=== PATIENT | female | born 1945 | race African-American/Black ===

== ENCOUNTER 2017-06-10 10:46 | Inpatient (IN) | payer OTHER, MEDICARE ==
[2017-06-10] MEDS: IV NORMAL SALINE 1000ML BAG 1,000 ML IV ×4 (11:00→15:15)
[2017-06-10] MEDS: NOREPINEPHRINE VIAL 16 MG in IV NORMAL SALINE 250ML 250 ML IV (12:39)
[2017-06-10 12:48] LABS: ADD MAN DIFF? NO
[2017-06-10 12:53] LABS: BASO % 0 % (0-3); EOS % 0 % (0-3); HEMATOCRIT 28.7 % (36.0-47.0); HEMOGLOBIN 9.3 g/dL (12.0-15.5); LYMPH # 1.3 x10^3/uL (1.0-4.8); LYMPH % 6 % (24-48); MEAN CORPUSCULAR HEMOGLOBIN 30 pg (25-35); MEAN CORPUSCULAR HGB CONC 32 g/dL (31-37); MEAN CORPUSCULAR VOLUME 93 fL (79-100); MONO # 1.3 x10^3/uL (0.0-1.1); MONO % 6 % (0-9); NEUT # 19.9 x10^3uL (1.8-7.7); NEUT % 88 % (31-73); PLATELET COUNT 298 x10^3/uL (140-400); RED BLOOD COUNT 3.08 x10^6/uL (3.50-5.40); RED CELL DISTRIBUTION WIDTH 13.3 % (11.5-14.5); WHITE BLOOD COUNT 22.5 x10^3/uL (4.0-11.0)
[2017-06-10 13:01] LABS: INR 1.3 (0.8-1.1); PROTHROMBIN TIME PATIENT 15.1 SEC (11.7-14.0)
[2017-06-10 13:07] LABS: ANION GAP 10 (6-14); BLOOD UREA NITROGEN 44 mg/dL (7-20); CALCIUM 9.1 mg/dL (8.5-10.1); CARBON DIOXIDE 28 mmol/L (21-32); CHLORIDE 104 mmol/L (98-107); GFR 18.5; GLUCOSE 132 mg/dL (70-99); POTASSIUM 3.9 mmol/L (3.5-5.1); SODIUM 142 mmol/L (136-145)
[2017-06-10 13:13] LABS: ALBUMIN 2.7 g/dL (3.4-5.0); ALK PHOS 71 U/L (46-116); ALT (SGPT) 26 U/L (14-59); AST (SGOT) 27 U/L (15-37); DIRECT BILIRUBIN 0.4 mg/dL (0.0-0.2); LIPASE 75 U/L (73-393); MAGNESIUM 1.7 mg/dL (1.8-2.4); TOTAL BILIRUBIN 0.9 mg/dL (0.2-1.0); TOTAL PROTEIN 5.9 g/dL (6.4-8.2)
[2017-06-10 13:18] LABS: TROPONINI < 0.017 ng/mL (0.000-0.055)
[2017-06-10 13:20] LABS: CKMB INDEX 0.5 % (0-4); CKMB MASS 1.9 ng/mL (0.0-3.6); CREATINE KINASE 380 U/L (26-192)
[2017-06-10 13:20] LABS: NT-PRO BNP 4499 pg/mL (0-124)
[2017-06-10 13:27] LABS: LACTIC ACID 2.6 mmol/L (0.4-2.0)
[2017-06-10 14:28] LABS: % BANDS 27 % (0-9); % LYMPHS 6 % (24-48); % METAS 2 % (0-0); % MONOS 3 % (0-10); % SEGS 62 % (35-66)
[2017-06-10 14:29] LABS: PLT ESTIMATE ADEQUATE (ADEQUATE)
[2017-06-10] MEDS ORDERED: DEXTROSE 50% 25 GM / 50ML DISP.SYRIN. IV (15:15)
[2017-06-10] MEDS: MAGNESIUM SULFATE 2GM 50 ML IV (15:39)
[2017-06-10 15:56] LABS: LACTIC ACID 1.4 mmol/L (0.4-2.0)
[2017-06-10] MEDS: INSULIN ASPART 300 UNITS/3 ML INSULN.PEN SQ (17:00)
[2017-06-10] MEDS: ONDANSETRON PF 4 MG/2 ML VIAL. IV (21:17)
[2017-06-10] MEDS: HYDROcodone/APAP 5/325MG 1 TAB TABLET PO (21:17)
[2017-06-10] MEDS: 1/2 NORMAL SALINE IV (21:21)
[2017-06-10] MEDS: AZITHROMYCIN IV (21:21)
[2017-06-10 21:45] LABS: BILIRUBIN,URINE SMALL (NEG); CLARITY,URINE CLEAR; COLOR,URINE AMBER; GLUCOSE,URINE NEGATIVE (NEG); NITRITE,URINE NEGATIVE (NEG); PROTEIN,URINE 30 mg/dL (NEG-TRACE)
[2017-06-10 21:51] LABS: AMPHETAMINE/METHAMPHETAMINE NEG (NEG); BARBITURATES NEG (NEG); BENZODIAZEPINES POS (NEG); CANNABINOIDS NEG (NEG); COCAINE NEG (NEG); ETHANOL, URINE NEG (NEG); METHADONE NEG (NEG); OPIATES POS (NEG); PHENCYCLIDINE NEG (NEG)
[2017-06-10 21:55] LABS: BACTERIA,URINE FEW /HPF (0-FEW); SQUAMOUS EPITHELIAL CELL,UR OCC /LPF
[2017-06-10] MEDS ORDERED: AZITHRMYCN 500MG IVPB FOR OMNI 250 ML IV (22:00)
[2017-06-10 22:02] LABS: TROPONINI < 0.017 ng/mL (0.000-0.055)
[2017-06-10] MEDS: HEPARIN PF for SUB-Q USE 5,000 UNIT/0.5 ML VIAL. SQ (22:10)
[2017-06-10 22:11] LABS: INFLUENZA A PATIENT NEGATIVE (NEGATIVE); INFLUENZA B PATIENT NEGATIVE (NEGATIVE); OBC FLU VALID
[2017-06-11] MEDS: NOREPINEPHRINE VIAL 16 MG in IV NORMAL SALINE 250ML 250 ML IV ×2 (00:23→18:36)
[2017-06-11 04:21] LABS: MRSA BY PCR Negative (Negative)
[2017-06-11] MEDS: IV NORMAL SALINE 1000ML BAG 1,000 ML IV ×3 (04:23→15:31)
[2017-06-11] MEDS: HEPARIN PF for SUB-Q USE 5,000 UNIT/0.5 ML VIAL. SQ ×3 (06:09→22:40)
[2017-06-11 06:22] LABS: BASO # 0.1 x10^3/uL (0.0-0.2); BASO % 0 % (0-3); EOS % 0 % (0-3); HEMATOCRIT 30.4 % (36.0-47.0); HEMOGLOBIN 9.5 g/dL (12.0-15.5); LYMPH # 2.3 x10^3/uL (1.0-4.8); LYMPH % 8 % (24-48); MEAN CORPUSCULAR HEMOGLOBIN 29 pg (25-35); MEAN CORPUSCULAR HGB CONC 31 g/dL (31-37); MEAN CORPUSCULAR VOLUME 93 fL (79-100); MONO % 4 % (0-9); NEUT # 24.9 x10^3uL (1.8-7.7); NEUT % 88 % (31-73); PLATELET COUNT 283 x10^3/uL (140-400); RED BLOOD COUNT 3.26 x10^6/uL (3.50-5.40); RED CELL DISTRIBUTION WIDTH 13.4 % (11.5-14.5); WHITE BLOOD COUNT 28.2 x10^3/uL (4.0-11.0)
[2017-06-11 06:29] LABS: ALBUMIN 2.4 g/dL (3.4-5.0); ANION GAP 10 (6-14); BLOOD UREA NITROGEN 48 mg/dL (7-20); CALCIUM 8.7 mg/dL (8.5-10.1); CARBON DIOXIDE 25 mmol/L (21-32); CHLORIDE 107 mmol/L (98-107); CREATININE 2.3 mg/dL (0.6-1.0); GFR 25.1; GLUCOSE 155 mg/dL (70-99); MAGNESIUM 2.2 mg/dL (1.8-2.4); PHOSPHORUS 3.7 mg/dL (2.6-4.7); POTASSIUM 4.5 mmol/L (3.5-5.1); SODIUM 142 mmol/L (136-145)
[2017-06-11 06:36] LABS: ADD MAN DIFF? YES
[2017-06-11 06:37] LABS: TROPONINI < 0.017 ng/mL (0.000-0.055)
[2017-06-11] MEDS: INSULIN ASPART 300 UNITS/3 ML INSULN.PEN SQ ×3 (08:00→17:00)
[2017-06-11] MEDS: LIDOCAINE (700MG/PATCH) PATCH. TD (08:42)
[2017-06-11] MEDS: HYDROcodone/APAP 5/325MG 1 TAB TABLET PO ×3 (08:43→22:41)
[2017-06-11 09:10] LABS: POC GLUCOSE 99 mg/dL (70-99)
[2017-06-11 10:04] LABS: % BANDS 46 % (0-9); % LYMPHS 9 % (24-48); % METAS 3 % (0-0); % MONOS 3 % (0-10); % MYELOS 2 % (0-0); % SEGS 37 % (35-66)
[2017-06-11 10:05] LABS: PLT ESTIMATE ADEQUATE (ADEQUATE)
[2017-06-11 11:23] LABS: CREATINE KINASE 527 U/L (26-192)
[2017-06-11 12:17] LABS: POC GLUCOSE 117 mg/dL (70-99)
[2017-06-11] MEDS ORDERED: PIP/TAZO PER PHARMACY MC (13:00)
[2017-06-11 13:59] LABS: SEDIMENTATION RATE 83 (0-25)
[2017-06-11] MEDS ORDERED: cefTRIAXone IV Push 1 GM VIAL. IVP (14:00)
[2017-06-11] MEDS: ACETAMINOPHEN 500 MG TABLET PO (14:27)
[2017-06-11] MEDS: PIPERACILLIN/TAZOBACTAM 3.375 GM in IV NORMAL SALINE 50ML 50 ML IV ×2 (14:29→18:35)
[2017-06-11] MEDS: ONDANSETRON PF 4 MG/2 ML VIAL. IV ×2 (15:47→21:04)
[2017-06-11 18:35] LABS: POC GLUCOSE 128 mg/dL (70-99)
[2017-06-11] MEDS: 1/2 NORMAL SALINE IV (20:34)
[2017-06-11] MEDS: AZITHROMYCIN IV (20:34)
[2017-06-11] MEDS ORDERED: MEROPENEM 500 MG in IV NORMAL SALINE 50ML 50 ML IV (22:00)
[2017-06-12] MEDS: PIPERACILLIN/TAZOBACTAM 3.375 GM in IV NORMAL SALINE 50ML 50 ML IV ×5 (00:04→23:56)
[2017-06-12] MEDS: IV NORMAL SALINE 1000ML BAG 1,000 ML IV ×3 (02:31→17:27)
[2017-06-12 05:19] LABS: ADD MAN DIFF? NO
[2017-06-12] MEDS: HYDROcodone/APAP 5/325MG 1 TAB TABLET PO ×3 (05:31→20:14)
[2017-06-12 05:32] LABS: BASO % 0 % (0-3); EOS # 0.1 x10^3/uL (0.0-0.7); EOS % 0 % (0-3); HEMATOCRIT 28.1 % (36.0-47.0); LYMPH # 2.8 x10^3/uL (1.0-4.8); LYMPH % 12 % (24-48); MEAN CORPUSCULAR HEMOGLOBIN 30 pg (25-35); MEAN CORPUSCULAR HGB CONC 32 g/dL (31-37); MEAN CORPUSCULAR VOLUME 93 fL (79-100); MONO # 1.1 x10^3/uL (0.0-1.1); MONO % 5 % (0-9); NEUT # 19.1 x10^3uL (1.8-7.7); NEUT % 83 % (31-73); PLATELET COUNT 262 x10^3/uL (140-400); RED BLOOD COUNT 3.02 x10^6/uL (3.50-5.40); RED CELL DISTRIBUTION WIDTH 13.3 % (11.5-14.5); WHITE BLOOD COUNT 23.2 x10^3/uL (4.0-11.0)
[2017-06-12] MEDS: HEPARIN PF for SUB-Q USE 5,000 UNIT/0.5 ML VIAL. SQ ×3 (05:32→22:08)
[2017-06-12 05:59] LABS: ALBUMIN/GLOBULIN RATIO 0.5 (1.0-1.7); ALK PHOS 103 U/L (46-116); ALT (SGPT) 29 U/L (14-59); ANION GAP 7 (6-14); AST (SGOT) 29 U/L (15-37); BLOOD UREA NITROGEN 23 mg/dL (7-20); BUN/CREATININE RATIO 18 (6-20); CALCIUM 9.2 mg/dL (8.5-10.1); CARBON DIOXIDE 27 mmol/L (21-32); CHLORIDE 106 mmol/L (98-107); CREATINE KINASE 166 U/L (26-192); CREATININE 1.3 mg/dL (0.6-1.0); GFR 48.6; GLUCOSE 97 mg/dL (70-99); POTASSIUM 4.1 mmol/L (3.5-5.1); SODIUM 140 mmol/L (136-145); TOTAL BILIRUBIN 0.3 mg/dL (0.2-1.0); TOTAL PROTEIN 6.1 g/dL (6.4-8.2)
[2017-06-12 06:33] LABS: LACTIC ACID 0.8 mmol/L (0.4-2.0)
[2017-06-12] MEDS: INSULIN ASPART 300 UNITS/3 ML INSULN.PEN SQ ×3 (08:00→17:00)
[2017-06-12] MEDS: LIDOCAINE (700MG/PATCH) PATCH. TD (08:45)
[2017-06-12 09:14] LABS: THYROID STIM HORMONE (TSH) 0.403 uIU/mL (0.358-3.74)
[2017-06-12 09:31] LABS: POC GLUCOSE 75 mg/dL (70-99)
[2017-06-12 09:34] LABS: % SAT IRON 3 % (15-34); IRON,SERUM 7 ug/dL (50-170)
[2017-06-12 09:45] LABS: FERRITIN 139 ng/mL (8-252)
[2017-06-12 13:06] LABS: POC GLUCOSE 117 mg/dL (70-99)
[2017-06-12] MEDS: oxyCODONE/APAP 7.5/325 1 TAB TABLET PO (14:52)
[2017-06-12 17:32] LABS: POC GLUCOSE 115 mg/dL (70-99)
[2017-06-12] MEDS: amLODIPine BESYLATE 5 MG TABLET PO (18:50)
[2017-06-12] MEDS: LABETALOL 20 MG/4 ML DISP.SYRIN. IVP (18:51)
[2017-06-12] MEDS: AZITHROMYCIN IV (20:14)
[2017-06-12] MEDS: 1/2 NORMAL SALINE IV (20:14)
[2017-06-12] MEDS: LACTOBACILLUS RHAMNOSUS GG 1 CAPSULE. PO (20:14)
[2017-06-12] MEDS: ONDANSETRON PF 4 MG/2 ML VIAL. IV (20:51)
[2017-06-13] MEDS: LABETALOL 20 MG/4 ML DISP.SYRIN. IVP ×3 (05:33→22:47)
[2017-06-13] MEDS: HYDROcodone/APAP 5/325MG 1 TAB TABLET PO (05:34)
[2017-06-13] MEDS: HEPARIN PF for SUB-Q USE 5,000 UNIT/0.5 ML VIAL. SQ ×3 (05:34→21:47)
[2017-06-13] MEDS: PIPERACILLIN/TAZOBACTAM 3.375 GM in IV NORMAL SALINE 50ML 50 ML IV ×4 (05:34→23:53)
[2017-06-13 06:32] LABS: ALBUMIN 2.1 g/dL (3.4-5.0); ALBUMIN/GLOBULIN RATIO 0.6 (1.0-1.7); ALK PHOS 109 U/L (46-116); ALT (SGPT) 42 U/L (14-59); ANION GAP 9 (6-14); AST (SGOT) 35 U/L (15-37); BLOOD UREA NITROGEN 12 mg/dL (7-20); BUN/CREATININE RATIO 13 (6-20); CARBON DIOXIDE 26 mmol/L (21-32); CHLORIDE 106 mmol/L (98-107); CREATININE 0.9 mg/dL (0.6-1.0); GFR 74.3; GLUCOSE 126 mg/dL (70-99); POTASSIUM 4.5 mmol/L (3.5-5.1); SODIUM 141 mmol/L (136-145); TOTAL BILIRUBIN 0.4 mg/dL (0.2-1.0); TOTAL PROTEIN 5.9 g/dL (6.4-8.2)
[2017-06-13 06:33] LABS: CREATINE KINASE 87 U/L (26-192)
[2017-06-13] MEDS: INSULIN ASPART 300 UNITS/3 ML INSULN.PEN SQ ×3 (08:00→17:02)
[2017-06-13] MEDS: amLODIPine BESYLATE 5 MG TABLET PO (08:48)
[2017-06-13] MEDS: LACTOBACILLUS RHAMNOSUS GG 1 CAPSULE. PO ×2 (08:48→21:40)
[2017-06-13] MEDS: IV NORMAL SALINE 1000ML BAG 1,000 ML IV (08:49)
[2017-06-13] MEDS: LIDOCAINE (700MG/PATCH) PATCH. TD (08:49)
[2017-06-13 09:00] LABS: POC GLUCOSE 127 mg/dL (70-99)
[2017-06-13 09:05] LABS: ADD MAN DIFF? NO
[2017-06-13] MEDS: ONDANSETRON PF 4 MG/2 ML VIAL. IV ×3 (09:06→22:44)
[2017-06-13 09:14] LABS: BASO % 0 % (0-3); EOS # 0.1 x10^3/uL (0.0-0.7); EOS % 1 % (0-3); HEMATOCRIT 32.6 % (36.0-47.0); HEMOGLOBIN 10.7 g/dL (12.0-15.5); LYMPH # 2.2 x10^3/uL (1.0-4.8); LYMPH % 12 % (24-48); MEAN CORPUSCULAR HEMOGLOBIN 30 pg (25-35); MEAN CORPUSCULAR HGB CONC 33 g/dL (31-37); MEAN CORPUSCULAR VOLUME 92 fL (79-100); MONO # 1.4 x10^3/uL (0.0-1.1); MONO % 8 % (0-9); NEUT # 14.7 x10^3uL (1.8-7.7); NEUT % 79 % (31-73); PLATELET COUNT 342 x10^3/uL (140-400); RED BLOOD COUNT 3.53 x10^6/uL (3.50-5.40); RED CELL DISTRIBUTION WIDTH 13.2 % (11.5-14.5); WHITE BLOOD COUNT 18.5 x10^3/uL (4.0-11.0)
[2017-06-13] MEDS ORDERED: CARVEDILOL 12.5 MG TABLET. PO (09:30)
[2017-06-13] MEDS ORDERED: MAGNESIUM HYDROXIDE 2,400 MG/30 ML ORAL.SUSP. PO (09:30)
[2017-06-13] MEDS ORDERED: HYDROcodone/APAP 5/325MG 1 TAB TABLET PO (09:45)
[2017-06-13] MEDS: POLYETHYLENE GLYCOL 3350 17 GM PACKET. PO (10:22)
[2017-06-13] MEDS: DOCUSATE SODIUM 100 MG CAPSULE. PO (10:22)
[2017-06-13] MEDS: diazePAM 5 MG TABLET PO (11:00)
[2017-06-13] MEDS: cloNIDine HCL 0.3 MG TABLET PO ×2 (11:00→21:42)
[2017-06-13 11:23] LABS: SPECIMEN SOURCE Urine (.); STREP PNEUMO ANTIGEN Positive (Negative)
[2017-06-13] MEDS: GLIMEPIRIDE 2 MG TABLET. PO (12:00)
[2017-06-13] MEDS ORDERED: PROCHLORPERAZINE 10 MG/2 ML VIAL. (13:03)
[2017-06-13] MEDS: PROCHLORPERAZINE 10 MG/2 ML VIAL. IV (13:04)
[2017-06-13 13:15] LABS: POC GLUCOSE 151 mg/dL (70-99)
[2017-06-13 16:17] LABS: LEGIONELLA AG UR Negative (Negative)
[2017-06-13] MEDS: oxyCODONE/APAP 7.5/325 1 TAB TABLET PO (16:24)
[2017-06-13 16:58] LABS: POC GLUCOSE 137 mg/dL (70-99)
[2017-06-13] MEDS: hydroCHLOROthiazide 12.5 MG CAPSULE PO (18:08)
[2017-06-13] MEDS: LABETALOL HCL 200 MG TABLET PO ×2 (18:08→21:41)
[2017-06-13] MEDS: LISINOPRIL 20 MG TABLET PO (18:08)
[2017-06-13] MEDS: PROCHLORPERAZINE 5 MG TABLET. PO (20:13)
[2017-06-13 21:07] LABS: POC GLUCOSE 162 mg/dL (70-99)
[2017-06-13] MEDS: ACETAMINOPHEN 500 MG TABLET PO (21:40)
[2017-06-13] MEDS: ATORVASTATIN CALCIUM 10 MG TABLET. PO (21:40)
[2017-06-13] MEDS: AMITRIPTYLINE HCL 50 MG TABLET PO (21:40)
[2017-06-13] MEDS: 1/2 NORMAL SALINE IV (21:42)
[2017-06-13] MEDS: AZITHROMYCIN IV (21:42)
[2017-06-14 03:27] LABS: POC GLUCOSE 143 mg/dL (70-99)
[2017-06-14] MEDS: PIPERACILLIN/TAZOBACTAM 3.375 GM in IV NORMAL SALINE 50ML 50 ML IV ×4 (05:21→23:43)
[2017-06-14] MEDS: HEPARIN PF for SUB-Q USE 5,000 UNIT/0.5 ML VIAL. SQ ×3 (05:21→22:02)
[2017-06-14] MEDS: IV NORMAL SALINE 1000ML BAG 1,000 ML IV (06:16)
[2017-06-14 06:29] LABS: CREATINE KINASE 31 U/L (26-192)
[2017-06-14 07:31] LABS: POC GLUCOSE 134 mg/dL (70-99)
[2017-06-14] MEDS: INSULIN ASPART 300 UNITS/3 ML INSULN.PEN SQ ×3 (07:38→16:34)
[2017-06-14] MEDS: LIDOCAINE (700MG/PATCH) PATCH. TD (08:41)
[2017-06-14] MEDS: POLYETHYLENE GLYCOL 3350 17 GM PACKET. PO (08:41)
[2017-06-14] MEDS: LACTOBACILLUS RHAMNOSUS GG 1 CAPSULE. PO ×2 (08:41→20:52)
[2017-06-14] MEDS: diazePAM 5 MG TABLET PO (08:42)
[2017-06-14] MEDS: GLIMEPIRIDE 2 MG TABLET. PO (08:42)
[2017-06-14] MEDS: DOCUSATE SODIUM 100 MG CAPSULE. PO (08:42)
[2017-06-14] MEDS: hydroCHLOROthiazide 12.5 MG CAPSULE PO (08:46)
[2017-06-14] MEDS: LISINOPRIL 20 MG TABLET PO (08:46)
[2017-06-14] MEDS: cloNIDine HCL 0.3 MG TABLET PO ×2 (08:46→20:53)
[2017-06-14] MEDS: LABETALOL HCL 200 MG TABLET PO ×2 (08:47→20:52)
[2017-06-14] MEDS ORDERED: NON FORMULARY ITEM (Lisinopril/Hydrochlorothiazide (Lisinopril-Hctz 20-12.5 Mg Tab) 1 TAB) PO (09:00)
[2017-06-14] MEDS: oxyCODONE/APAP 7.5/325 1 TAB TABLET PO ×3 (09:48→18:12)
[2017-06-14 11:23] LABS: POC GLUCOSE 164 mg/dL (70-99)
[2017-06-14] MEDS: PROCHLORPERAZINE 5 MG TABLET. PO ×2 (13:46→20:51)
[2017-06-14 16:28] LABS: POC GLUCOSE 121 mg/dL (70-99)
[2017-06-14] MEDS: AZITHROMYCIN IV (20:20)
[2017-06-14] MEDS: 1/2 NORMAL SALINE IV (20:20)
[2017-06-14 20:46] LABS: POC GLUCOSE 135 mg/dL (70-99)
[2017-06-14] MEDS: ATORVASTATIN CALCIUM 10 MG TABLET. PO (20:52)
[2017-06-14] MEDS: AMITRIPTYLINE HCL 50 MG TABLET PO (20:52)
[2017-06-14] MEDS: ALBUTEROL SULFATE 2.5 MG/3 ML NEBU. NEB (21:46)
[2017-06-15] MEDS: oxyCODONE/APAP 7.5/325 1 TAB TABLET PO ×2 (03:37→20:30)
[2017-06-15] MEDS: PIPERACILLIN/TAZOBACTAM 3.375 GM in IV NORMAL SALINE 50ML 50 ML IV ×3 (05:50→17:06)
[2017-06-15] MEDS: HEPARIN PF for SUB-Q USE 5,000 UNIT/0.5 ML VIAL. SQ ×3 (05:55→20:14)
[2017-06-15 06:26] LABS: CREATINE KINASE 29 U/L (26-192)
[2017-06-15 07:44] LABS: POC GLUCOSE 103 mg/dL (70-99)
[2017-06-15] MEDS: INSULIN ASPART 300 UNITS/3 ML INSULN.PEN SQ ×3 (08:04→17:00)
[2017-06-15] MEDS: hydroCHLOROthiazide 12.5 MG CAPSULE PO (08:13)
[2017-06-15] MEDS: POLYETHYLENE GLYCOL 3350 17 GM PACKET. PO (08:13)
[2017-06-15] MEDS: DOCUSATE SODIUM 100 MG CAPSULE. PO (08:13)
[2017-06-15] MEDS: LIDOCAINE (700MG/PATCH) PATCH. TD (08:13)
[2017-06-15] MEDS: GLIMEPIRIDE 2 MG TABLET. PO (08:13)
[2017-06-15] MEDS: diazePAM 5 MG TABLET PO (08:14)
[2017-06-15] MEDS: cloNIDine HCL 0.3 MG TABLET PO ×2 (08:14→20:05)
[2017-06-15] MEDS: LABETALOL HCL 200 MG TABLET PO ×2 (08:14→20:16)
[2017-06-15] MEDS: LISINOPRIL 20 MG TABLET PO (08:14)
[2017-06-15] MEDS: LACTOBACILLUS RHAMNOSUS GG 1 CAPSULE. PO ×2 (08:14→20:05)
[2017-06-15] MEDS: IPRATRPIUM/ALBUTEROL 0.5/2.5MG 3 ML NEBU. NEB ×3 (11:16→19:18)
[2017-06-15 11:32] LABS: POC GLUCOSE 147 mg/dL (70-99)
[2017-06-15 16:57] LABS: POC GLUCOSE 148 mg/dL (70-99)
[2017-06-15] MEDS: AMITRIPTYLINE HCL 50 MG TABLET PO (20:04)
[2017-06-15] MEDS: ATORVASTATIN CALCIUM 10 MG TABLET. PO (20:05)
[2017-06-15 20:41] LABS: POC GLUCOSE 120 mg/dL (70-99)
[2017-06-16] MEDS: PIPERACILLIN/TAZOBACTAM 3.375 GM in IV NORMAL SALINE 50ML 50 ML IV ×2 (00:08→05:53)
[2017-06-16 03:36] LABS: ADD MAN DIFF? NO
[2017-06-16 03:41] LABS: BASO % 1 % (0-3); EOS # 0.2 x10^3/uL (0.0-0.7); EOS % 3 % (0-3); HEMATOCRIT 27.5 % (36.0-47.0); HEMOGLOBIN 9.2 g/dL (12.0-15.5); LYMPH # 3.6 x10^3/uL (1.0-4.8); LYMPH % 43 % (24-48); MEAN CORPUSCULAR HEMOGLOBIN 31 pg (25-35); MEAN CORPUSCULAR HGB CONC 33 g/dL (31-37); MEAN CORPUSCULAR VOLUME 92 fL (79-100); MONO # 1.4 x10^3/uL (0.0-1.1); MONO % 17 % (0-9); NEUT % 37 % (31-73); PLATELET COUNT 339 x10^3/uL (140-400); RED BLOOD COUNT 2.99 x10^6/uL (3.50-5.40); RED CELL DISTRIBUTION WIDTH 13.2 % (11.5-14.5); WHITE BLOOD COUNT 8.3 x10^3/uL (4.0-11.0)
[2017-06-16 04:06] LABS: ALBUMIN 1.9 g/dL (3.4-5.0); ALBUMIN/GLOBULIN RATIO 0.4 (1.0-1.7); TOTAL PROTEIN 6.5 g/dL (6.4-8.2)
[2017-06-16 04:07] LABS: ALK PHOS 71 U/L (46-116); ALT (SGPT) 93 U/L (14-59); ANION GAP 4 (6-14); AST (SGOT) 68 U/L (15-37); BLOOD UREA NITROGEN 10 mg/dL (7-20); BUN/CREATININE RATIO 11 (6-20); CALCIUM 9.8 mg/dL (8.5-10.1); CARBON DIOXIDE 33 mmol/L (21-32); CHLORIDE 104 mmol/L (98-107); CREATINE KINASE 20 U/L (26-192); CREATININE 0.9 mg/dL (0.6-1.0); GFR 74.3; GLUCOSE 107 mg/dL (70-99); POTASSIUM 3.7 mmol/L (3.5-5.1); SODIUM 141 mmol/L (136-145); TOTAL BILIRUBIN 0.2 mg/dL (0.2-1.0)
[2017-06-16] MEDS: HEPARIN PF for SUB-Q USE 5,000 UNIT/0.5 ML VIAL. SQ ×3 (06:00→21:37)
[2017-06-16] MEDS: oxyCODONE/APAP 7.5/325 1 TAB TABLET PO ×3 (06:04→21:33)
[2017-06-16 07:42] LABS: POC GLUCOSE 100 mg/dL (70-99)
[2017-06-16] MEDS: IPRATRPIUM/ALBUTEROL 0.5/2.5MG 3 ML NEBU. NEB ×4 (07:53→19:51)
[2017-06-16] MEDS: INSULIN ASPART 300 UNITS/3 ML INSULN.PEN SQ ×3 (08:00→17:00)
[2017-06-16] MEDS: hydroCHLOROthiazide 12.5 MG CAPSULE PO (08:28)
[2017-06-16] MEDS: LIDOCAINE (700MG/PATCH) PATCH. TD (08:28)
[2017-06-16] MEDS: LISINOPRIL 20 MG TABLET PO (08:29)
[2017-06-16] MEDS: LACTOBACILLUS RHAMNOSUS GG 1 CAPSULE. PO ×2 (08:30→21:34)
[2017-06-16] MEDS: DOCUSATE SODIUM 100 MG CAPSULE. PO (08:30)
[2017-06-16] MEDS: GLIMEPIRIDE 2 MG TABLET. PO (08:30)
[2017-06-16] MEDS: cloNIDine HCL 0.3 MG TABLET PO ×2 (08:31→21:34)
[2017-06-16] MEDS: diazePAM 5 MG TABLET PO ×2 (08:32→22:49)
[2017-06-16] MEDS: POLYETHYLENE GLYCOL 3350 17 GM PACKET. PO (08:32)
[2017-06-16] MEDS: LABETALOL HCL 200 MG TABLET PO ×2 (08:32→21:33)
[2017-06-16 12:26] LABS: POC GLUCOSE 172 mg/dL (70-99)
[2017-06-16 17:17] LABS: POC GLUCOSE 121 mg/dL (70-99)
[2017-06-16 21:32] LABS: POC GLUCOSE 93 mg/dL (70-99)
[2017-06-16] MEDS: ATORVASTATIN CALCIUM 10 MG TABLET. PO (21:34)
[2017-06-16] MEDS: AMITRIPTYLINE HCL 50 MG TABLET PO (21:34)
[2017-06-17 06:04] LABS: CREATINE KINASE 22 U/L (26-192)
[2017-06-17] MEDS: oxyCODONE/APAP 7.5/325 1 TAB TABLET PO ×3 (06:12→19:38)
[2017-06-17] MEDS: HEPARIN PF for SUB-Q USE 5,000 UNIT/0.5 ML VIAL. SQ ×3 (06:16→22:02)
[2017-06-17 07:38] LABS: POC GLUCOSE 120 mg/dL (70-99)
[2017-06-17] MEDS: IPRATRPIUM/ALBUTEROL 0.5/2.5MG 3 ML NEBU. NEB ×4 (07:43→20:57)
[2017-06-17] MEDS: ONDANSETRON PF 4 MG/2 ML VIAL. IV (07:52)
[2017-06-17] MEDS: INSULIN ASPART 300 UNITS/3 ML INSULN.PEN SQ ×3 (08:51→17:04)
[2017-06-17] MEDS: POLYETHYLENE GLYCOL 3350 17 GM PACKET. PO (09:18)
[2017-06-17] MEDS: LIDOCAINE (700MG/PATCH) PATCH. TD (09:19)
[2017-06-17] MEDS: DOCUSATE SODIUM 100 MG CAPSULE. PO (09:20)
[2017-06-17] MEDS: LACTOBACILLUS RHAMNOSUS GG 1 CAPSULE. PO ×2 (09:20→21:58)
[2017-06-17] MEDS: GLIMEPIRIDE 2 MG TABLET. PO (09:20)
[2017-06-17] MEDS: hydroCHLOROthiazide 12.5 MG CAPSULE PO (09:21)
[2017-06-17] MEDS: LISINOPRIL 20 MG TABLET PO (09:21)
[2017-06-17] MEDS: diazePAM 5 MG TABLET PO ×2 (09:21→22:36)
[2017-06-17] MEDS: LABETALOL HCL 200 MG TABLET PO ×2 (09:21→21:58)
[2017-06-17] MEDS: cloNIDine HCL 0.3 MG TABLET PO ×2 (09:22→21:58)
[2017-06-17 11:05] LABS: POC GLUCOSE 160 mg/dL (70-99)
[2017-06-17] MEDS: ACETAMINOPHEN 500 MG TABLET PO (12:35)
[2017-06-17 17:02] LABS: POC GLUCOSE 115 mg/dL (70-99)
[2017-06-17 20:58] LABS: POC GLUCOSE 111 mg/dL (70-99)
[2017-06-17] MEDS: ATORVASTATIN CALCIUM 10 MG TABLET. PO (21:59)
[2017-06-17] MEDS: AMITRIPTYLINE HCL 50 MG TABLET PO (21:59)
[2017-06-18] MEDS: oxyCODONE/APAP 7.5/325 1 TAB TABLET PO ×2 (04:52→11:57)
[2017-06-18] MEDS: HEPARIN PF for SUB-Q USE 5,000 UNIT/0.5 ML VIAL. SQ (05:59)
[2017-06-18] MEDS: IPRATRPIUM/ALBUTEROL 0.5/2.5MG 3 ML NEBU. NEB ×2 (06:43→12:10)
[2017-06-18 07:25] LABS: CREATINE KINASE 24 U/L (26-192)
[2017-06-18 07:46] LABS: POC GLUCOSE 132 mg/dL (70-99)
[2017-06-18] MEDS: INSULIN ASPART 300 UNITS/3 ML INSULN.PEN SQ ×2 (08:28→11:58)
[2017-06-18] MEDS: ONDANSETRON PF 4 MG/2 ML VIAL. IV (09:00)
[2017-06-18] MEDS: hydroCHLOROthiazide 12.5 MG CAPSULE PO (09:00)
[2017-06-18] MEDS: LIDOCAINE (700MG/PATCH) PATCH. TD (09:00)
[2017-06-18] MEDS: DOCUSATE SODIUM 100 MG CAPSULE. PO (09:00)
[2017-06-18] MEDS: POLYETHYLENE GLYCOL 3350 17 GM PACKET. PO (09:00)
[2017-06-18] MEDS: LACTOBACILLUS RHAMNOSUS GG 1 CAPSULE. PO (09:01)
[2017-06-18] MEDS: GLIMEPIRIDE 2 MG TABLET. PO (09:01)
[2017-06-18] MEDS: diazePAM 5 MG TABLET PO (09:01)
[2017-06-18] MEDS: LISINOPRIL 20 MG TABLET PO (09:01)
[2017-06-18] MEDS: LABETALOL HCL 200 MG TABLET PO (09:02)
[2017-06-18] MEDS: cloNIDine HCL 0.3 MG TABLET PO (09:02)
[2017-06-18 11:57] LABS: POC GLUCOSE 141 mg/dL (70-99)
== END 2017-06-18 14:15 | disposition home health service (06) | DRG 871 ==
LOC: 2 NORTH 06-13 15:23 → ER 10:46 → 1 WEST ICU 13:45
PROC: 02HV33Z Insertion of Infusion Device into Superior Vena Cava, Percutaneous Approach (ICD-10-PCS; principal; 2017-06-10)
DX: A41.9 Sepsis, unspecified organism (principal); J18.9 Pneumonia, unspecified organism; J96.01 Acute respiratory failure with hypoxia; N17.0 Acute kidney failure with tubular necrosis; R65.21 Severe sepsis with septic shock; Z68.41 Body mass index [BMI] 40.0-44.9, adult; J44.0 Chronic obstructive pulmonary disease with (acute) lower respiratory infection; N39.0 Urinary tract infection, site not specified; R04.2 Hemoptysis; D63.8 Anemia in other chronic diseases classified elsewhere; E11.22 Type 2 diabetes mellitus with diabetic chronic kidney disease; E66.9 Obesity, unspecified; E83.42 Hypomagnesemia; G89.29 Other chronic pain; I12.9 Hypertensive chronic kidney disease with stage 1 through stage 4 chronic kidney disease, or unspecified chronic kidney disease; M06.9 Rheumatoid arthritis, unspecified; N18.9 Chronic kidney disease, unspecified; Z87.891 Personal history of nicotine dependence; E66.01 Morbid (severe) obesity due to excess calories; E04.9 Nontoxic goiter, unspecified; D64.9 Anemia, unspecified; E88.09 Other disorders of plasma-protein metabolism, not elsewhere classified
CPT/HCPCS: 36415; 36569; 71045; 71250; 76770; 80048; 80053; 80069; 80076; 80307; 81001; 82550; 82553; 82728; 82962; 83540; 83550; 83605; 83690; 83735; 83880; 84443; 84484; 85007; 85025; 85610; 85651; 87040; 87086; 87449; 87641; 87804; 87804-59; 93005; 93306; 93970; 94640; 94760; 96361; 96365; 97110-GO; 97110-GP; 97116-GP; 97162-GP; 97167-GO; 97530-GO; 97530-GP; 97535-GO; 99291; 99291-25; J0456; J0690; J0780; J1815; J2020; J2405; J2543; J3490; J7030; J7050; J7060; J7613; J7620; Q0164

== ENCOUNTER 2018-11-29 11:57 | Inpatient (IN) | payer OTHER, MEDICAID ==
[~2018-11-29] VITALS: Ht 175.3 cm; Wt 126.6 kg
[~2018-11-29 11:57] MED LIST: ALBU2.5V8 INH; AMIT10TA PO; CLON0.3T PO; DIAZ5TAB4 PO; DICL75TA PO; GLIM4TAB2 PO; LABE200T4 PO; LEVO750T31 PO; LISI1TAB5 PO; OXYC1TAB19 PO; PRAV40TA2 PO; PROC10TA57 PO; TRAM50TA PO
--- NOTE | 2018-11-29 13:01 | PHYS DOC ---
Past Medical History Past Medical History: Asthma, Heart Disease, Hypertension, TIA, Other Additional Past Medical Histor: NEUROPATHY Past Surgical History: Cholecystectomy, Hysterectomy, Tonsillectomy Alcohol Use: None Drug Use: None Adult General Chief Complaint Chief Complaint: WEAKNESS/GENERALIZED HPI HPI Patient is a 73 year old female presents with bilateral lower extremity weakness has been ongoing for week. The patient states his been getting worse, was having trouble walking today. The patient lives at home alone, and walks with a walker at baseline. Denies any pain at this time. Review of Systems Review of Systems Constitutional: Denies fever or chills. Reports weakness. Eyes: Denies change in visual acuity, redness, or eye pain [] HENT: Denies nasal congestion or sore throat [] Respiratory: Denies cough or shortness of breath [] Cardiovascular: No additional information not addressed in HPI [] GI: Denies abdominal pain, nausea, vomiting, bloody stools or diarrhea [] : Denies dysuria or hematuria [] Musculoskeletal: Denies back pain or joint pain [] Integument: Denies rash or skin lesions [] Neurologic: Denies headache, focal weakness or sensory changes [] Endocrine: Denies polyuria or polydipsia [] Complete systems were reviewed and found to be within normal limits, except as documented in this note. Allergies Allergies Allergies Coded Allergies Type Severity Reaction Last Updated Verified No Known Drug Allergies 06/10/17 No Physical Exam Physical Exam Constitutional: Well developed, well nourished, no acute distress, non-toxic appearance. [] HENT: Normocephalic, atraumatic, bilateral external ears normal, oropharynx moist, no oral exudates, nose normal. [] Eyes: PERRLA, EOMI, conjunctiva normal, no discharge. [] Neck: Normal range of motion, no tenderness, supple, no stridor. [] Cardiovascular:Heart rate regular rhythm, no murmur [] Lungs & Thorax: Bilateral breath sounds clear to auscultation [] Abdomen: Bowel sounds normal, distended (states at baseline), no tenderness, no masses, no pulsatile masses. [] Skin: Warm, dry, no erythema, no rash. [] Back: No tenderness, no CVA tenderness. [] Extremities: No tenderness, no cyanosis, no clubbing, ROM intact, Has bilateral edema.] Neurologic: Alert and oriented X 3, normal motor function, normal sensory function, no focal deficits noted. [] Psychologic: Affect normal, judgement normal, mood normal. [] Current Patient Data Vital Signs Vital Signs Date Time Temp Pulse Resp B/P (MAP) Pulse Ox O2 Delivery O2 Flow Rate FiO2 11/29/18 12:09 98.4 72 18 129/63 (85) 95 Room Air 98.4 Lab Values Laboratory Tests Test 11/29/18 13:25 White Blood Count 7.2 x10^3/uL (4.0-11.0) Red Blood Count 3.57 x10^6/uL (3.50-5.40) Hemoglobin 11.4 g/dL (12.0-15.5) L Hematocrit 34.5 % (36.0-47.0) L Mean Corpuscular Volume 97 fL (79-100) Mean Corpuscular Hemoglobin 32 pg (25-35) Mean Corpuscular Hemoglobin Concent 33 g/dL (31-37) Red Cell Distribution Width 13.1 % (11.5-14.5) Platelet Count 249 x10^3/uL (140-400) Neutrophils (%) (Auto) 49 % (31-73) Lymphocytes (%) (Auto) 39 % (24-48) Monocytes (%) (Auto) 9 % (0-9) Eosinophils (%) (Auto) 3 % (0-3) Basophils (%) (Auto) 1 % (0-3) Neutrophils # (Auto) 3.6 x10^3/uL (1.8-7.7) Lymphocytes # (Auto) 2.8 x10^3/uL (1.0-4.8) Monocytes # (Auto) 0.6 x10^3/uL (0.0-1.1) Eosinophils # (Auto) 0.2 x10^3/uL (0.0-0.7) Basophils # (Auto) 0.0 x10^3/uL (0.0-0.2) Sodium Level 143 mmol/L (136-145) Potassium Level 4.2 mmol/L (3.5-5.1) Chloride Level 106 mmol/L (98-107) Carbon Dioxide Level 28 mmol/L (21-32) Anion Gap 9 (6-14) Blood Urea Nitrogen 15 mg/dL (7-20) Creatinine 1.3 mg/dL (0.6-1.0) H Estimated GFR (Cockcroft-Gault) 48.4 BUN/Creatinine Ratio 12 (6-20) Glucose Level 101 mg/dL (70-99) H Lactic Acid Level 1.0 mmol/L (0.4-2.0) Calcium Level 9.8 mg/dL (8.5-10.1) Total Bilirubin 0.3 mg/dL (0.2-1.0) Aspartate Amino Transferase (AST) 13 U/L (15-37) L Alanine Aminotransferase (ALT) 16 U/L (14-59) Alkaline Phosphatase 86 U/L (46-116) GG-Inh-A-Type Natriuretic Peptide 269 pg/mL (0-124) H Total Protein 7.2 g/dL (6.4-8.2) Albumin 3.4 g/dL (3.4-5.0) Albumin/Globulin Ratio 0.9 (1.0-1.7) L Laboratory Tests 11/29/18 13:25 Laboratory Tests 11/29/18 13:25 EKG EKG [] Radiology/Procedures Radiology/Procedures [] Course & Med Decision Making Course & Med Decision Making Pertinent Labs and Imaging studies reviewed. (See chart for details) Will check lab work. Lab work is normal with exception of 1.3 creatinine which is greater than the last creatinine of 0.9. Urine is pending. Discussed with Dr. Olea who will admit to hospital ([id number]). Urine shows UTI, will order Rocephin. Viktoria Disclaimer Dragon Disclaimer This electronic medical record was generated, in whole or in part, using a voice recognition dictation system. Departure Departure Impression: Primary Impression: JENNIFFER (acute kidney injury) Additional Impressions: Generalized weakness Urinary tract infection Disposition: ADMITTED INPATIENT Admitting Physician: HIMS Condition: STABLE Referrals: UNKNOWN PCP NAME (PCP) Problem Qualifiers Additional Impressions: Urinary tract infection Urinary tract infection type: acute cystitis Hematuria presence: without hematuria Qualified Codes: N30.00 - Acute cystitis without hematuria CHEPE BRADLEY APRN Nov 29, 2018 13:00
[2018-11-29 13:35] LABS: BASO % 1 % (0-3); EOS # 0.2 x10^3/uL (0.0-0.7); EOS % 3 % (0-3); HEMATOCRIT 34.5 % (36.0-47.0); HEMOGLOBIN 11.4 g/dL (12.0-15.5); LYMPH # 2.8 x10^3/uL (1.0-4.8); LYMPH % 39 % (24-48); MEAN CORPUSCULAR HEMOGLOBIN 32 pg (25-35); MEAN CORPUSCULAR HGB CONC 33 g/dL (31-37); MEAN CORPUSCULAR VOLUME 97 fL (79-100); MONO # 0.6 x10^3/uL (0.0-1.1); MONO % 9 % (0-9); NEUT # 3.6 x10^3/uL (1.8-7.7); NEUT % 49 % (31-73); PLATELET COUNT 249 x10^3/uL (140-400); RED BLOOD COUNT 3.57 x10^6/uL (3.50-5.40); RED CELL DISTRIBUTION WIDTH 13.1 % (11.5-14.5); WHITE BLOOD COUNT 7.2 x10^3/uL (4.0-11.0)
[2018-11-29 14:00] LABS: CALCIUM 9.8 mg/dL (8.5-10.1); CREATININE 1.3 mg/dL (0.6-1.0); GFR 48.4; POTASSIUM 4.2 mmol/L (3.5-5.1)
[2018-11-29 14:12] LABS: ALBUMIN 3.4 g/dL (3.4-5.0); ALBUMIN/GLOBULIN RATIO 0.9 (1.0-1.7); TOTAL BILIRUBIN 0.3 mg/dL (0.2-1.0); TOTAL PROTEIN 7.2 g/dL (6.4-8.2)
[2018-11-29] MEDS ORDERED: ONDANSETRON PF 4 MG/2 ML VIAL. IV PRN (14:45)
[2018-11-29 14:54] LABS: BILIRUBIN,URINE SMALL (NEG); CLARITY,URINE CLOUDY; COLOR,URINE YELLOW; NITRITE,URINE NEGATIVE (NEG); PROTEIN,URINE NEGATIVE (NEG-TRACE)
[2018-11-29 15:01] LABS: BACTERIA,URINE MANY /HPF (0-FEW); RBC,URINE OCC /HPF (0-2); SQUAMOUS EPITHELIAL CELL,UR MANY /LPF; WBC,URINE 20-40 /HPF (0-4)
[2018-11-29] MEDS ORDERED: cefTRIAXone IV Push 1 GM VIAL. IVP ONE (15:15)
[2018-11-29] MEDS: fentaNYL PF VIAL 100 MCG/2 ML VIAL IV PRN ×3 (15:51→20:58)
--- NOTE | 2018-11-29 15:56 | HP ---
ADMIT DATE: 11/29/2018 CHIEF COMPLAINT: Weakness. HISTORY OF PRESENT ILLNESS: The patient is a pleasant 73-year-old female who is living alone. Her daughter checks on her regularly and states she just become too weak. She could even hardly get to the door when the ambulance came. While in the ER, we noted that she has had acute kidney injury with a creatinine bump of greater than 0.3. We are going to admit the patient and give her IV fluids, do some physical therapy and occupational therapy. I suspect she might need [facility] care [facility]. PAST MEDICAL HISTORY: Asthma, coronary artery disease, hypertension, hyperlipidemia, neuropathy, cholecystectomy, hysterectomy and tonsillectomy. ALLERGIES: None. FAMILY HISTORY: Coronary artery disease. SOCIAL HISTORY: She does not drink, smoke or take drugs. MEDICATIONS: Reviewed, please refer to the MRAD. REVIEW OF SYSTEMS: GENERAL: No history of weight change, weakness or fevers. SKIN: No bruising, hair changes or rashes. EYES: No blurred, double or loss of vision. NOSE AND THROAT: No history of nosebleeds, hoarseness or sore throat. HEART: No history of palpitations, chest pain or shortness of breath on exertion. LUNGS: Denies cough, hemoptysis, wheezing or shortness of breath. GASTROINTESTINAL: Denies changes in appetite, nausea, vomiting, diarrhea or constipation. GENITOURINARY: No history of frequency, urgency, hesitancy or nocturia. NEUROLOGIC: She complains of weakness. PSYCHIATRIC: No history of panic, anxiety or depression. ENDOCRINE: No history of heat or cold intolerance, polyuria or polydipsia. EXTREMITIES: Denies muscle weakness, joint pain, pain on walking or stiffness. PHYSICAL EXAMINATION VITALS: Within normal limits and are stable. GENERAL: No apparent distress. Alert and oriented. HEENT: Head is normocephalic, atraumatic, pupils were equally round and reactive to light and accommodation. NECK: Supple, no JVD, no thyromegaly was noted. LUNGS: Clear to auscultation in all lung rabago without rhonchi or wheezing. HEART: RRR, S1, S2 present. Peripheral pulses intact, no obvious murmurs were noted. ABDOMEN: Soft, nontender. Positive bowel sounds no organomegaly, normal bowel sounds. EXTREMITIES: Without any cyanosis, clubbing, or edema. Pedal pulses intact, Homans sign is negative. 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 Unable to stand. PSYCHIATRIC: Normal affect, normal mood. Stable. SKIN: No ulcerations or rashes, good skin turgor, no jaundice. VASCULAR: Good capillary refill, neurovascular bundle appears to be intact. LABORATORY DATA: Hemoglobin is 11.4, creatinine is 1.3 and her baseline is 0.9. Urine shows a UTI with large amount of leukocyte esterase and 20-40 white cells. ASSESSMENT AND PLAN: Urinary tract infection, metabolic encephalopathy, weakness, probable early failure to thrive and acute kidney injury. The patient has been admitted with consult Nephrology. IV fluids, IV Rocephin. PT, OT, home meds, DVT prophylaxis. Full code. PROGNOSIS: Guarded. JAMILA ACUNA DO DR: [email or web address]/manju JOB#: [id number] / [id number]
[2018-11-29 16:00] VITALS: BP 107/57
[2018-11-29] MEDS: IV NORMAL SALINE 1000ML BAG 1,000 ML IV SCH (16:06)
[2018-11-29] MEDS: cefTRIAXone IV Push 1 GM VIAL. IVP SCH (17:02)
[2018-11-29] MEDS ORDERED: PREG100C PO (17:11)
[2018-11-29 19:35] VITALS: BP 106/61
[2018-11-29 23:25] VITALS: BP 132/73
[2018-11-30] VITALS (7 sets, daily range): BP systolic 127–175; BP diastolic 74–91
[2018-11-30] MEDS: fentaNYL PF VIAL 100 MCG/2 ML VIAL IV PRN ×3 (01:13→08:33)
[2018-11-30] MEDS: IV NORMAL SALINE 1000ML BAG 1,000 ML IV SCH ×2 (05:26→20:20)
[2018-11-30] MEDS ORDERED: ACETAMINOPHEN/CODEINE 300/30MG TABLET. PO PRN (09:15)
[2018-11-30] MEDS ORDERED: PROCHLORPERAZINE 5 MG TABLET. PO PRN (09:15)
[2018-11-30] MEDS ORDERED: ONDANSETRON PF 4 MG/2 ML VIAL. IV PRN (09:15)
[2018-11-30] MEDS ORDERED: ALBUTEROL SULFATE 2.5 MG/3 ML NEBU. INH PRN (09:15)
[2018-11-30] MEDS ORDERED: ACETAMINOPHEN 500 MG TABLET PO PRN (09:15)
[2018-11-30] MEDS ORDERED: diazePAM 5 MG TABLET PO PRN (09:15)
[2018-11-30 09:46] LABS: CALCIUM 9.5 mg/dL (8.5-10.1); CREATININE 1.1 mg/dL (0.6-1.0); GFR 58.7; POTASSIUM 4.3 mmol/L (3.5-5.1)
--- NOTE | 2018-11-30 10:38 | PDOC2 ---
CONSULT Date of Consult Date of Consult DATE: 11/30/18 TIME: 10:37 Reason for Consult Reason for Consult: JENNIFFER Identification/Chief Complaint Chief Complaint Legs hurting and feeling weak Source Source: Chart review, Patient History of Present Illness Reason for Visit: Patient is a 73 year old AA female presents with bilateral lower extremity weakness has been ongoing for week. The patient states his been getting worse, was having trouble walking today. The patient lives at home alone, and walks with a walker at baseline. Denies any OTC meds. Denies NSAID's but per med list on Diclofenac Recently started on Lyrica by PCP . On Statin as well, not new per patient Denies any past hx of renal issues. No urinary complaints. No N/V/D No Fall/Trauma Past Medical History Cardiovascular: HTN Musculoskeletal: low back pain, Other Rheumatologic: Rheumatoid arthritis Endocrine: Diabetes Past Surgical History Past Surgical History: Other Family History Family History: No Significant, Kidney Disease Social History ALCOHOL: none Drugs: None Lives: with Family Current Problem List Problem List Problems Medical Problems: (1) JENNIFFER (acute kidney injury) Status: Acute (2) Generalized weakness Status: Acute (3) Urinary tract infection Status: Acute Current Medications Current Medications Current Medications Ondansetron HCl (Zofran) 4 mg PRN Q8HRS PRN IV NAUSEA/VOMITING; Start 11/29/18 at 14:45; Stop 11/30/18 at 09:04; Status DC Fentanyl Citrate (Fentanyl 2ml Vial) 50 mcg PRN Q1HR PRN IV PAIN Last administered on 11/30/18at 08:33; Start 11/29/18 at 14:45; Stop 11/30/18 at 14:44 Ceftriaxone Sodium (Rocephin) 1 gm Q24H IVP Last administered on 11/29/18at 17:02; Start 11/29/18 at 16:00 Sodium Chloride 1,000 ml @ 80 mls/hr [id number] IV Last administered on 11/30/18at 05:26; Start 11/29/18 at 15:15 Ceftriaxone Sodium (Rocephin) 1 gm 1X ONCE IVP ; Start 11/29/18 at 15:15; Stop 11/29/18 at 15:16; Status UNV Ondansetron HCl (Zofran) 4 mg PRN Q6HRS PRN IV NAUSEA/VOMITING; Start 11/30/18 at 09:15 Acetaminophen (Tylenol) 500 mg PRN Q6HRS PRN PO MILD PAIN / TEMP; Start 11/30/18 at 09:15 Acetaminophen/ Codeine Phosphate (Tylenol #3) 1 tab PRN Q6HRS PRN PO MODERATE PAIN; Start 11/30/18 at 09:15 Albuterol Sulfate (Ventolin Neb Soln) 2.5 mg PRN Q6HRS PRN INH SHORTNESS OF BREATH; Start 11/30/18 at 09:15 Amitriptyline HCl (Elavil) 60 mg QHS PO ; Start 11/30/18 at 21:00 Clonidine HCl (Catapres) 0.3 mg BID PO ; Start 11/30/18 at 09:30 Diazepam (Valium) 5 mg PRN DAILY PRN PO ANXIETY; Start 11/30/18 at 09:15 Oxycodone/ Acetaminophen (Percocet 7.5/ 325) 2 tab PRN TID PRN PO SEVERE PAIN; Start 11/30/18 at 09:15 Glimepiride (Amaryl) 4 mg DAILYWBKFT PO ; Start 11/30/18 at 10:00 Labetalol HCl (Trandate) 200 mg BID PO ; Start 11/30/18 at 10:00 Atorvastatin Calcium (Lipitor) 10 mg QHS PO ; Start 11/30/18 at 21:00 Pregabalin (Lyrica) 100 mg BID PO ; Start 11/30/18 at 10:00 Prochlorperazine Maleate (Compazine) 10 mg PRN Q8HRS PRN PO NAUSEA/VOMITING; Start 11/30/18 at 09:15 Active Scripts Active Reported Lyrica (Pregabalin) 100 Mg Capsule 1 Cap PO BID Percocet 7.5-325 Mg Tablet (Oxycodone/Acetaminophen) 1 Each Tablet 2 Tab PO TID PRN Proair Hfa Inhaler (Albuterol Sulfate) 8.5 Gm Hfa.aer.ad 2 Puff INH PRN Q6HRS PRN Amitriptyline Hcl 10 Mg Tablet 6 Tab PO QHS Glimepiride 4 Mg Tablet 1 Tab PO DAILYWBKFT Compazine (Prochlorperazine Maleate) 10 Mg Tablet 10 Mg PO PRN Q8HRS PRN Diclofenac Sodium 75 Mg Tablet. 1 Tab PO BID Pravastatin Sodium 40 Mg Tablet 1 Tab PO QHS Clonidine Hcl 0.3 Mg Tablet 1 Tab PO BID Diazepam 5 Mg Tablet 5 Mg PO PRN DAILY PRN Labetalol Hcl 200 Mg Tablet 1 Tab PO BID Allergies Allergies: Coded Allergies: No Known Drug Allergies (Unverified , 06/10/17) ROS Review of System Per HPI Physical Exam Physical Exam General: NAD HEEN- OM moist NECK supple Heart: Regular rate, Normal S1, Normal S2 Lungs: Clear, Non labored Abdomen: Normal bowel sounds, Soft Extremities: No LE edema Skin: No rashes, No breakdown No [place] NEURO- Grossly normal Vital Signs Vital Signs Date Time Temp Pulse Resp B/P (MAP) Pulse Ox O2 Delivery O2 Flow Rate FiO2 11/30/18 08:33 20 92 Room Air 11/30/18 07:00 98.4 55 135/74 (94) 98.4 Assessment & Plan JENNIFFER - Pre-renal in the setting of taking NSAID's UA unremarkable Renal function improving with IVF Hold NSAID's, avoid Nephrotoxins Supportive care , strict I/O, monitor Lower Ext weakness- May consider Holding Statin Check CK, Defer to Primary HTN- Stable Labs Labs Laboratory Tests Test 11/29/18 13:25 11/29/18 14:48 11/30/18 09:20 White Blood Count 7.2 x10^3/uL (4.0-11.0) Red Blood Count 3.57 x10^6/uL (3.50-5.40) Hemoglobin 11.4 g/dL (12.0-15.5) Hematocrit 34.5 % (36.0-47.0) Mean Corpuscular Volume 97 fL (79-100) Mean Corpuscular Hemoglobin 32 pg (25-35) Mean Corpuscular Hemoglobin Concent 33 g/dL (31-37) Red Cell Distribution Width 13.1 % (11.5-14.5) Platelet Count 249 x10^3/uL (140-400) Neutrophils (%) (Auto) 49 % (31-73) Lymphocytes (%) (Auto) 39 % (24-48) Monocytes (%) (Auto) 9 % (0-9) Eosinophils (%) (Auto) 3 % (0-3) Basophils (%) (Auto) 1 % (0-3) Neutrophils # (Auto) 3.6 x10^3/uL (1.8-7.7) Lymphocytes # (Auto) 2.8 x10^3/uL (1.0-4.8) Monocytes # (Auto) 0.6 x10^3/uL (0.0-1.1) Eosinophils # (Auto) 0.2 x10^3/uL (0.0-0.7) Basophils # (Auto) 0.0 x10^3/uL (0.0-0.2) Sodium Level 143 mmol/L (136-145) 142 mmol/L (136-145) Potassium Level 4.2 mmol/L (3.5-5.1) 4.3 mmol/L (3.5-5.1) Chloride Level 106 mmol/L (98-107) 106 mmol/L (98-107) Carbon Dioxide Level 28 mmol/L (21-32) 28 mmol/L (21-32) Anion Gap 9 (6-14) 8 (6-14) Blood Urea Nitrogen 15 mg/dL (7-20) 13 mg/dL (7-20) Creatinine 1.3 mg/dL (0.6-1.0) 1.1 mg/dL (0.6-1.0) Estimated GFR (Cockcroft-Gault) 48.4 58.7 BUN/Creatinine Ratio 12 (6-20) Glucose Level 101 mg/dL (70-99) 153 mg/dL (70-99) Lactic Acid Level 1.0 mmol/L (0.4-2.0) Calcium Level 9.8 mg/dL (8.5-10.1) 9.5 mg/dL (8.5-10.1) Total Bilirubin 0.3 mg/dL (0.2-1.0) Aspartate Amino Transf (AST/SGOT) 13 U/L (15-37) Alanine Aminotransferase (ALT/SGPT) 16 U/L (14-59) Alkaline Phosphatase 86 U/L (46-116) AX-Smm-M-Type Natriuretic Peptide 269 pg/mL (0-124) Total Protein 7.2 g/dL (6.4-8.2) Albumin 3.4 g/dL (3.4-5.0) Albumin/Globulin Ratio 0.9 (1.0-1.7) Urine Collection Type Unknown Urine Color Yellow Urine Clarity Cloudy Urine pH 6.0 Urine Specific Mcleod 1.020 Urine Protein Negative mg/dL (NEG-TRACE) Urine Glucose (UA) Negative mg/dL (NEG) Urine Ketones (Stick) Negative mg/dL (NEG) Urine Blood Negative (NEG) Urine Nitrite Negative (NEG) Urine Bilirubin Small (NEG) Urine Urobilinogen Dipstick 1.0 mg/dL (0.2 mg/dL) Urine Leukocyte Esterase Large (NEG) Urine RBC Occ /HPF (0-2) Urine WBC 20-40 /HPF (0-4) Urine Squamous Epithelial Cells Many /LPF Urine Bacteria Many /HPF (0-FEW) Urine Mucus Marked /LPF Laboratory Tests Test 11/29/18 13:25 11/29/18 14:48 11/30/18 09:20 White Blood Count 7.2 x10^3/uL (4.0-11.0) Red Blood Count 3.57 x10^6/uL (3.50-5.40) Hemoglobin 11.4 g/dL (12.0-15.5) Hematocrit 34.5 % (36.0-47.0) Mean Corpuscular Volume 97 fL (79-100) Mean Corpuscular Hemoglobin 32 pg (25-35) Mean Corpuscular Hemoglobin Concent 33 g/dL (31-37) Red Cell Distribution Width 13.1 % (11.5-14.5) Platelet Count 249 x10^3/uL (140-400) Neutrophils (%) (Auto) 49 % (31-73) Lymphocytes (%) (Auto) 39 % (24-48) Monocytes (%) (Auto) 9 % (0-9) Eosinophils (%) (Auto) 3 % (0-3) Basophils (%) (Auto) 1 % (0-3) Neutrophils # (Auto) 3.6 x10^3/uL (1.8-7.7) Lymphocytes # (Auto) 2.8 x10^3/uL (1.0-4.8) Monocytes # (Auto) 0.6 x10^3/uL (0.0-1.1) Eosinophils # (Auto) 0.2 x10^3/uL (0.0-0.7) Basophils # (Auto) 0.0 x10^3/uL (0.0-0.2) Sodium Level 143 mmol/L (136-145) 142 mmol/L (136-145) Potassium Level 4.2 mmol/L (3.5-5.1) 4.3 mmol/L (3.5-5.1) Chloride Level 106 mmol/L (98-107) 106 mmol/L (98-107) Carbon Dioxide Level 28 mmol/L (21-32) 28 mmol/L (21-32) Anion Gap 9 (6-14) 8 (6-14) Blood Urea Nitrogen 15 mg/dL (7-20) 13 mg/dL (7-20) Creatinine 1.3 mg/dL (0.6-1.0) 1.1 mg/dL (0.6-1.0) Estimated GFR (Cockcroft-Gault) 48.4 58.7 BUN/Creatinine Ratio 12 (6-20) Glucose Level 101 mg/dL (70-99) 153 mg/dL (70-99) Lactic Acid Level 1.0 mmol/L (0.4-2.0) Calcium Level 9.8 mg/dL (8.5-10.1) 9.5 mg/dL (8.5-10.1) Total Bilirubin 0.3 mg/dL (0.2-1.0) Aspartate Amino Transf (AST/SGOT) 13 U/L (15-37) Alanine Aminotransferase (ALT/SGPT) 16 U/L (14-59) Alkaline Phosphatase 86 U/L (46-116) KQ-Kim-W-Type Natriuretic Peptide 269 pg/mL (0-124) Total Protein 7.2 g/dL (6.4-8.2) Albumin 3.4 g/dL (3.4-5.0) Albumin/Globulin Ratio 0.9 (1.0-1.7) Urine Collection Type Unknown Urine Color Yellow Urine Clarity Cloudy Urine pH 6.0 Urine Specific Mcleod 1.020 Urine Protein Negative mg/dL (NEG-TRACE) Urine Glucose (UA) Negative mg/dL (NEG) Urine Ketones (Stick) Negative mg/dL (NEG) Urine Blood Negative (NEG) Urine Nitrite Negative (NEG) Urine Bilirubin Small (NEG) Urine Urobilinogen Dipstick 1.0 mg/dL (0.2 mg/dL) Urine Leukocyte Esterase Large (NEG) Urine RBC Occ /HPF (0-2) Urine WBC 20-40 /HPF (0-4) Urine Squamous Epithelial Cells Many /LPF Urine Bacteria Many /HPF (0-FEW) Urine Mucus Marked /LPF Review All relevant outside records, renal labs, imaging studies, telemetry/EKG's were reviewed. FADY DENIS MD Nov 30, 2018 10:38
[2018-11-30] MEDS: GLIMEPIRIDE 2 MG TABLET. PO SCH (10:44)
[2018-11-30] MEDS: cloNIDine HCL 0.3 MG TABLET PO SCH ×2 (10:44→20:26)
[2018-11-30] MEDS: PREGABALIN 50 MG CAPSULE PO SCH ×2 (10:45→20:24)
[2018-11-30] MEDS: LABETALOL HCL 200 MG TABLET PO SCH ×2 (10:46→20:25)
[2018-11-30] MEDS: oxyCODONE/APAP 7.5/325 1 TAB TABLET PO PRN ×2 (10:46→20:23)
--- NOTE | 2018-11-30 11:37 | PDOC ---
PROGRESS NOTES Chief Complaint Chief Complaint InciDental UTI Generalized weakness AK I, VMN BMI 42-obesity Bilateral knee pain and swelling History of Present Illness History of Present Illness Doesn't feel well, sent in by Dtr Because of weakness Does not want to go to rehabilitation Only amenable to home health Creatinine 1.3 getting IV fluids Incidental UTI no symptoms I inspected her, knees very significant range of motion limitation because of bilateral pain-most likely OA She is morbidly obese Plan: okay to be off telemetry X-ray bilateral knees Physiatry consult for rehabilitation Continue Rocephin-just got one dose Await urine cultures Home health on discharge not unless social work will be able to encourage her for rehabilitation or SNU if PT OT recommends that Add PTOT Discussed with her Full code I have reconciled home meds Vitals Vitals Vital Signs Date Time Temp Pulse Resp B/P (MAP) Pulse Ox O2 Delivery O2 Flow Rate FiO2 11/30/18 11:18 99.0 74 20 148/74 (98) 98 Room Air 99.0 Physical Exam General: Alert, Oriented X3, Cooperative Heart: Regular rate, Normal S1, Normal S2 Lungs: Clear Abdomen: Normal bowel sounds, Soft Extremities: No clubbing, No cyanosis, Other (limited range of motion on flexion bilateral knees,) Skin: No rashes, No breakdown Labs LABS Laboratory Tests Test 11/29/18 13:25 11/29/18 14:48 11/30/18 09:20 White Blood Count 7.2 x10^3/uL (4.0-11.0) Red Blood Count 3.57 x10^6/uL (3.50-5.40) Hemoglobin 11.4 g/dL (12.0-15.5) Hematocrit 34.5 % (36.0-47.0) Mean Corpuscular Volume 97 fL (79-100) Mean Corpuscular Hemoglobin 32 pg (25-35) Mean Corpuscular Hemoglobin Concent 33 g/dL (31-37) Red Cell Distribution Width 13.1 % (11.5-14.5) Platelet Count 249 x10^3/uL (140-400) Neutrophils (%) (Auto) 49 % (31-73) Lymphocytes (%) (Auto) 39 % (24-48) Monocytes (%) (Auto) 9 % (0-9) Eosinophils (%) (Auto) 3 % (0-3) Basophils (%) (Auto) 1 % (0-3) Neutrophils # (Auto) 3.6 x10^3/uL (1.8-7.7) Lymphocytes # (Auto) 2.8 x10^3/uL (1.0-4.8) Monocytes # (Auto) 0.6 x10^3/uL (0.0-1.1) Eosinophils # (Auto) 0.2 x10^3/uL (0.0-0.7) Basophils # (Auto) 0.0 x10^3/uL (0.0-0.2) Sodium Level 143 mmol/L (136-145) 142 mmol/L (136-145) Potassium Level 4.2 mmol/L (3.5-5.1) 4.3 mmol/L (3.5-5.1) Chloride Level 106 mmol/L (98-107) 106 mmol/L (98-107) Carbon Dioxide Level 28 mmol/L (21-32) 28 mmol/L (21-32) Anion Gap 9 (6-14) 8 (6-14) Blood Urea Nitrogen 15 mg/dL (7-20) 13 mg/dL (7-20) Creatinine 1.3 mg/dL (0.6-1.0) 1.1 mg/dL (0.6-1.0) Estimated GFR (Cockcroft-Gault) 48.4 58.7 BUN/Creatinine Ratio 12 (6-20) Glucose Level 101 mg/dL (70-99) 153 mg/dL (70-99) Lactic Acid Level 1.0 mmol/L (0.4-2.0) Calcium Level 9.8 mg/dL (8.5-10.1) 9.5 mg/dL (8.5-10.1) Total Bilirubin 0.3 mg/dL (0.2-1.0) Aspartate Amino Transf (AST/SGOT) 13 U/L (15-37) Alanine Aminotransferase (ALT/SGPT) 16 U/L (14-59) Alkaline Phosphatase 86 U/L (46-116) BZ-Ido-W-Type Natriuretic Peptide 269 pg/mL (0-124) Total Protein 7.2 g/dL (6.4-8.2) Albumin 3.4 g/dL (3.4-5.0) Albumin/Globulin Ratio 0.9 (1.0-1.7) Urine Collection Type Unknown Urine Color Yellow Urine Clarity Cloudy Urine pH 6.0 Urine Specific Norman 1.020 Urine Protein Negative mg/dL (NEG-TRACE) Urine Glucose (UA) Negative mg/dL (NEG) Urine Ketones (Stick) Negative mg/dL (NEG) Urine Blood Negative (NEG) Urine Nitrite Negative (NEG) Urine Bilirubin Small (NEG) Urine Urobilinogen Dipstick 1.0 mg/dL (0.2 mg/dL) Urine Leukocyte Esterase Large (NEG) Urine RBC Occ /HPF (0-2) Urine WBC 20-40 /HPF (0-4) Urine Squamous Epithelial Cells Many /LPF Urine Bacteria Many /HPF (0-FEW) Urine Mucus Marked /LPF Review of Systems Review of Systems biLateral knees hurt, weak, fair by mouth, the rest of ROS 14 point negative Assessment and Plan Assessmemt and Plan Problems Medical Problems: (1) JENNIFFER (acute kidney injury) Status: Acute (2) Generalized weakness Status: Acute (3) Urinary tract infection Status: Acute Comment Review of Relevant I have reviewed the following items jorge luis (where applicable) has been applied. Labs Laboratory Tests Test 11/29/18 13:25 11/29/18 14:48 11/30/18 09:20 White Blood Count 7.2 x10^3/uL (4.0-11.0) Red Blood Count 3.57 x10^6/uL (3.50-5.40) Hemoglobin 11.4 g/dL (12.0-15.5) Hematocrit 34.5 % (36.0-47.0) Mean Corpuscular Volume 97 fL (79-100) Mean Corpuscular Hemoglobin 32 pg (25-35) Mean Corpuscular Hemoglobin Concent 33 g/dL (31-37) Red Cell Distribution Width 13.1 % (11.5-14.5) Platelet Count 249 x10^3/uL (140-400) Neutrophils (%) (Auto) 49 % (31-73) Lymphocytes (%) (Auto) 39 % (24-48) Monocytes (%) (Auto) 9 % (0-9) Eosinophils (%) (Auto) 3 % (0-3) Basophils (%) (Auto) 1 % (0-3) Neutrophils # (Auto) 3.6 x10^3/uL (1.8-7.7) Lymphocytes # (Auto) 2.8 x10^3/uL (1.0-4.8) Monocytes # (Auto) 0.6 x10^3/uL (0.0-1.1) Eosinophils # (Auto) 0.2 x10^3/uL (0.0-0.7) Basophils # (Auto) 0.0 x10^3/uL (0.0-0.2) Sodium Level 143 mmol/L (136-145) 142 mmol/L (136-145) Potassium Level 4.2 mmol/L (3.5-5.1) 4.3 mmol/L (3.5-5.1) Chloride Level 106 mmol/L (98-107) 106 mmol/L (98-107) Carbon Dioxide Level 28 mmol/L (21-32) 28 mmol/L (21-32) Anion Gap 9 (6-14) 8 (6-14) Blood Urea Nitrogen 15 mg/dL (7-20) 13 mg/dL (7-20) Creatinine 1.3 mg/dL (0.6-1.0) 1.1 mg/dL (0.6-1.0) Estimated GFR (Cockcroft-Gault) 48.4 58.7 BUN/Creatinine Ratio 12 (6-20) Glucose Level 101 mg/dL (70-99) 153 mg/dL (70-99) Lactic Acid Level 1.0 mmol/L (0.4-2.0) Calcium Level 9.8 mg/dL (8.5-10.1) 9.5 mg/dL (8.5-10.1) Total Bilirubin 0.3 mg/dL (0.2-1.0) Aspartate Amino Transf (AST/SGOT) 13 U/L (15-37) Alanine Aminotransferase (ALT/SGPT) 16 U/L (14-59) Alkaline Phosphatase 86 U/L (46-116) JS-Tia-A-Type Natriuretic Peptide 269 pg/mL (0-124) Total Protein 7.2 g/dL (6.4-8.2) Albumin 3.4 g/dL (3.4-5.0) Albumin/Globulin Ratio 0.9 (1.0-1.7) Urine Collection Type Unknown Urine Color Yellow Urine Clarity Cloudy Urine pH 6.0 Urine Specific Norman 1.020 Urine Protein Negative mg/dL (NEG-TRACE) Urine Glucose (UA) Negative mg/dL (NEG) Urine Ketones (Stick) Negative mg/dL (NEG) Urine Blood Negative (NEG) Urine Nitrite Negative (NEG) Urine Bilirubin Small (NEG) Urine Urobilinogen Dipstick 1.0 mg/dL (0.2 mg/dL) Urine Leukocyte Esterase Large (NEG) Urine RBC Occ /HPF (0-2) Urine WBC 20-40 /HPF (0-4) Urine Squamous Epithelial Cells Many /LPF Urine Bacteria Many /HPF (0-FEW) Urine Mucus Marked /LPF Laboratory Tests Test 11/29/18 13:25 11/29/18 14:48 11/30/18 09:20 White Blood Count 7.2 x10^3/uL (4.0-11.0) Red Blood Count 3.57 x10^6/uL (3.50-5.40) Hemoglobin 11.4 g/dL (12.0-15.5) Hematocrit 34.5 % (36.0-47.0) Mean Corpuscular Volume 97 fL (79-100) Mean Corpuscular Hemoglobin 32 pg (25-35) Mean Corpuscular Hemoglobin Concent 33 g/dL (31-37) Red Cell Distribution Width 13.1 % (11.5-14.5) Platelet Count 249 x10^3/uL (140-400) Neutrophils (%) (Auto) 49 % (31-73) Lymphocytes (%) (Auto) 39 % (24-48) Monocytes (%) (Auto) 9 % (0-9) Eosinophils (%) (Auto) 3 % (0-3) Basophils (%) (Auto) 1 % (0-3) Neutrophils # (Auto) 3.6 x10^3/uL (1.8-7.7) Lymphocytes # (Auto) 2.8 x10^3/uL (1.0-4.8) Monocytes # (Auto) 0.6 x10^3/uL (0.0-1.1) Eosinophils # (Auto) 0.2 x10^3/uL (0.0-0.7) Basophils # (Auto) 0.0 x10^3/uL (0.0-0.2) Sodium Level 143 mmol/L (136-145) 142 mmol/L (136-145) Potassium Level 4.2 mmol/L (3.5-5.1) 4.3 mmol/L (3.5-5.1) Chloride Level 106 mmol/L (98-107) 106 mmol/L (98-107) Carbon Dioxide Level 28 mmol/L (21-32) 28 mmol/L (21-32) Anion Gap 9 (6-14) 8 (6-14) Blood Urea Nitrogen 15 mg/dL (7-20) 13 mg/dL (7-20) Creatinine 1.3 mg/dL (0.6-1.0) 1.1 mg/dL (0.6-1.0) Estimated GFR (Cockcroft-Gault) 48.4 58.7 BUN/Creatinine Ratio 12 (6-20) Glucose Level 101 mg/dL (70-99) 153 mg/dL (70-99) Lactic Acid Level 1.0 mmol/L (0.4-2.0) Calcium Level 9.8 mg/dL (8.5-10.1) 9.5 mg/dL (8.5-10.1) Total Bilirubin 0.3 mg/dL (0.2-1.0) Aspartate Amino Transf (AST/SGOT) 13 U/L (15-37) Alanine Aminotransferase (ALT/SGPT) 16 U/L (14-59) Alkaline Phosphatase 86 U/L (46-116) LZ-Vnd-W-Type Natriuretic Peptide 269 pg/mL (0-124) Total Protein 7.2 g/dL (6.4-8.2) Albumin 3.4 g/dL (3.4-5.0) Albumin/Globulin Ratio 0.9 (1.0-1.7) Urine Collection Type Unknown Urine Color Yellow Urine Clarity Cloudy Urine pH 6.0 Urine Specific Norman 1.020 Urine Protein Negative mg/dL (NEG-TRACE) Urine Glucose (UA) Negative mg/dL (NEG) Urine Ketones (Stick) Negative mg/dL (NEG) Urine Blood Negative (NEG) Urine Nitrite Negative (NEG) Urine Bilirubin Small (NEG) Urine Urobilinogen Dipstick 1.0 mg/dL (0.2 mg/dL) Urine Leukocyte Esterase Large (NEG) Urine RBC Occ /HPF (0-2) Urine WBC 20-40 /HPF (0-4) Urine Squamous Epithelial Cells Many /LPF Urine Bacteria Many /HPF (0-FEW) Urine Mucus Marked /LPF Medications Current Medications Ondansetron HCl (Zofran) 4 mg PRN Q8HRS PRN IV NAUSEA/VOMITING; Start 11/29/18 at 14:45; Stop 11/30/18 at 09:04; Status DC Fentanyl Citrate (Fentanyl 2ml Vial) 50 mcg PRN Q1HR PRN IV PAIN Last administered on 11/30/18at 08:33; Start 11/29/18 at 14:45; Stop 11/30/18 at 14:44 Ceftriaxone Sodium (Rocephin) 1 gm Q24H IVP Last administered on 11/29/18at 17:02; Start 11/29/18 at 16:00 Sodium Chloride 1,000 ml @ 80 mls/hr [id number] IV Last administered on 11/30/18at 05:26; Start 11/29/18 at 15:15 Ceftriaxone Sodium (Rocephin) 1 gm 1X ONCE IVP ; Start 11/29/18 at 15:15; Stop 11/29/18 at 15:16; Status UNV Ondansetron HCl (Zofran) 4 mg PRN Q6HRS PRN IV NAUSEA/VOMITING; Start 11/30/18 at 09:15 Acetaminophen (Tylenol) 500 mg PRN Q6HRS PRN PO MILD PAIN / TEMP; Start 11/30/18 at 09:15 Acetaminophen/ Codeine Phosphate (Tylenol #3) 1 tab PRN Q6HRS PRN PO MODERATE PAIN; Start 11/30/18 at 09:15 Albuterol Sulfate (Ventolin Neb Soln) 2.5 mg PRN Q6HRS PRN INH SHORTNESS OF BREATH; Start 11/30/18 at 09:15 Amitriptyline HCl (Elavil) 60 mg QHS PO ; Start 11/30/18 at 21:00 Clonidine HCl (Catapres) 0.3 mg BID PO Last administered on 11/30/18at 10:44; Start 11/30/18 at 09:30 Diazepam (Valium) 5 mg PRN DAILY PRN PO ANXIETY; Start 11/30/18 at 09:15 Oxycodone/ Acetaminophen (Percocet 7.5/ 325) 2 tab PRN TID PRN PO SEVERE PAIN Last administered on 11/30/18at 10:46; Start 11/30/18 at 09:15 Glimepiride (Amaryl) 4 mg DAILYWBKFT PO Last administered on 11/30/18at 10:44; Start 11/30/18 at 10:00 Labetalol HCl (Trandate) 200 mg BID PO Last administered on 11/30/18at 10:46; Start 11/30/18 at 10:00 Atorvastatin Calcium (Lipitor) 10 mg QHS PO ; Start 11/30/18 at 21:00 Pregabalin (Lyrica) 100 mg BID PO Last administered on 11/30/18at 10:45; Start 11/30/18 at 10:00 Prochlorperazine Maleate (Compazine) 10 mg PRN Q8HRS PRN PO NAUSEA/VOMITING; Start 11/30/18 at 09:15 Active Scripts Active Reported Lyrica (Pregabalin) 100 Mg Capsule 1 Cap PO BID Percocet 7.5-325 Mg Tablet (Oxycodone/Acetaminophen) 1 Each Tablet 2 Tab PO TID PRN Proair Hfa Inhaler (Albuterol Sulfate) 8.5 Gm Hfa.aer.ad 2 Puff INH PRN Q6HRS PRN Amitriptyline Hcl 10 Mg Tablet 6 Tab PO QHS Glimepiride 4 Mg Tablet 1 Tab PO DAILYWBKFT Compazine (Prochlorperazine Maleate) 10 Mg Tablet 10 Mg PO PRN Q8HRS PRN Diclofenac Sodium 75 Mg Tablet.dr 1 Tab PO BID Pravastatin Sodium 40 Mg Tablet 1 Tab PO QHS Clonidine Hcl 0.3 Mg Tablet 1 Tab PO BID Diazepam 5 Mg Tablet 5 Mg PO PRN DAILY PRN Labetalol Hcl 200 Mg Tablet 1 Tab PO BID Vitals/I & O Vital Sign - Last 24 Hours 11/29/18 11/29/18 11/29/18 11/29/18 12:09 15:00 16:00 17:37 Temp 98.4 97.6 98.4 97.6 Pulse 72 62 61 Resp 18 18 B/P (MAP) 129/63 (85) 107/57 (74) Pulse Ox 95 94 96 O2 Delivery Room Air Room Air Room Air 11/29/18 11/29/18 11/29/18 11/29/18 18:15 19:35 20:00 20:58 Temp 97.7 97.7 Pulse 67 Resp 20 B/P (MAP) 106/61 (76) Pulse Ox 94 96 O2 Delivery Room Air Room Air Room Air Room Air 11/29/18 11/30/18 11/30/18 11/30/18 23:25 01:13 03:46 05:25 Temp 97.5 98.3 97.5 98.3 Pulse 73 60 Resp 20 20 B/P (MAP) 132/73 (92) 135/82 (99) Pulse Ox 97 98 O2 Delivery Room Air Room Air Room Air Room Air 11/30/18 11/30/18 11/30/18 11/30/18 07:00 08:00 08:33 09:03 Temp 98.4 98.4 Pulse 55 Resp 20 20 20 B/P (MAP) 135/74 (94) Pulse Ox 92 92 92 O2 Delivery Room Air Room Air Room Air Room Air 11/30/18 11/30/18 11/30/18 11/30/18 10:44 10:46 10:46 11:18 Temp 99.0 99.0 Pulse 55 55 74 Resp 20 20 B/P (MAP) 135/74 135/74 148/74 (98) Pulse Ox 92 98 O2 Delivery Room Air Room Air Intake and Output 11/29/18 11/29/18 11/30/18 14:59 22:59 06:59 Intake Total 460 ml 720 ml Balance 460 ml 720 ml SARA PATEL MD Nov 30, 2018 11:37
[2018-11-30] MEDS ORDERED: DEXTROSE 50% 25 GM / 50ML DISP.SYRIN. IV PRN (11:45)
--- NOTE | 2018-11-30 11:59 | NUR ---
Report called to receiving nurse Ivania. Pt transferred to room 536 per bed with all belongings at 1155 per [facility] transportation.
[2018-11-30] MEDS: INSULIN LISPRO 300 UNITS/3 ML INSULN.PEN. SQ SCH ×2 (12:00→16:58)
--- NOTE | 2018-11-30 12:15 | NUR ---
Patient received to room 536 per bed. Patient alert and oriented times four, skin W/D to touch. IV patent left hand. Patient verb. understanding orientation to unit and room. Call light at hand, side rails up times two, lunch tray ordered. Patient verb. understanding POC. Continue cares and monitor.
[2018-11-30] MEDS ORDERED: methylPREDNISolone ACETATE 40 MG/ML VIAL. IM ONE ×2 (13:00)
[2018-11-30] MEDS ORDERED: BUPIVACAINE MPF 0.25% 10 ML VIAL. IJ ONE (13:00)
[2018-11-30] MEDS: cefTRIAXone IV Push 1 GM VIAL. IVP SCH (15:11)
--- NOTE | 2018-11-30 15:24 | RAD ---
Exam performed: X-ray lumbosacral spine, bilateral hands, bilateral ankles and bilateral knees. HISTORY: Pain, arthritis. DATE OF SERVICE: 11/30/2018. COMPARISON: None available FINDINGS: Bilateral hands: AP, lateral and oblique views of bilateral hands are obtained. There is mild subluxation at the second, third, fourth and fifth metacarpophalangeal joints. The remainder alignment appears preserved. There is no acute fracture or dislocation. No bony erosions or periosteal reaction seen. There is diffuse soft tissue swelling. AP, lateral and oblique views of the left hand demonstrates normal alignment. Mild subluxation of the first metacarpal phalangeal joint. Remainder alignment appears preserved. No bony erosions or periosteal reaction seen. There is diffuse soft tissue swelling. Bilateral ankles: Normal alignment of bilateral ankle mortises is noted. There is no acute fracture or dislocation. Diffuse soft tissue swelling is seen bilaterally. No foreign body. Lumbosacral spine: AP, lateral and cone view of the lumbosacral spine is obtained. 5 nonrib-bearing vertebral bodies identified. Vertebral body heights and intervertebral disc spaces are maintained. There is no arely or retrolisthesis. No compression fracture. Mild diffuse arthritic spurring is seen. No prevertebral soft tissue swelling. Nonspecific bowel gas pattern. There is scattered stool in the colon. Bilateral knees: AP standing view bilateral knees demonstrates narrowing of bilateral medial and lateral tibiofemoral joints. No acute fracture or dislocation is seen. There is diffuse soft tissue swelling around bilateral knees. IMPRESSION: See discussion above. Electronically signed by: Blanche Gongora MD (11/30/2018 3:21 PM) [facility]
--- NOTE | 2018-11-30 15:30 | PDOC4 ---
PROCEDURE Procedure At her request,I have injected her both knee joints under aseptic skin prep with alcohol,using 4 ml of 0.25% bupivacaine solution mixed with 2 ml of methylprednisone 40 mg/! ml solution andshe tolerated the procedures satisfactorily without any side effects. DOC PEDRO MD Nov 30, 2018 15:30
--- NOTE | 2018-11-30 15:30 | NUR ---
Dr. Campos injected rt. and lt. knees, see notes. Patient tolerated well, no pain. To CT per bed.
--- NOTE | 2018-11-30 16:02 | RAD ---
EXAM: Lumbar spine CT without contrast. HISTORY: Pain. TECHNIQUE: Computed tomographic images of the lumbar spine were obtained without contrast. Multiplanar reformatting was performed. *One or more of the following individualized dose reduction techniques were utilized for this examination: 1. Automated exposure control. 2. Adjustment of the mA and/or kV according to patient size. 3. Use of iterative reconstruction technique. COMPARISON: Radiographs obtained on the same date. FINDINGS: There is lumbar hyperlordosis. There is a transitional S1 segment with prematurity S1-S2 disc. 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 There is grade 1 anterolisthesis of and L5 on S1, measuring 7 mm. There is 3 mm retrolisthesis of L2 on L3. There is mild lumbar scoliosis. There is degenerative endplate remodeling at all levels. There are several small endplate Schmorl's nodes. There is a vacuum phenomenon within the lower thoracic and lumbar disc spaces. There is suspected bone demineralization. There is no suspicious osseous lesion. There are few incidental osseous hemangiomas. There is bilateral posterior dependent and basilar atelectasis. There is a simple appearing cyst within the upper pole the right kidney measuring 4.5 cm. The gallbladder is surgically absent. At L1-L2, there is a disc bulge. There is mild left facet arthropathy. There is mild bilateral foraminal stenosis. At L2-L3, there is a disc bulge and endplate remodeling. There is mild retrolisthesis. There is mild right facet arthropathy. There is moderate right and mild left foraminal stenosis. There is mild central canal stenosis. At L3-L4, there is a disc bulge and endplate remodeling. There is moderate right and mild left facet arthropathy. There is hypertrophy of the ligamentum flavum. There is moderate right greater than left foraminal stenosis. There is moderate central canal stenosis. At L4-L5, there is a disc bulge. There is mild right and moderate to severe left facet arthropathy. There is moderate to severe right foraminal stenosis. There is mild central canal stenosis. At L5-S1, there is a disc bulge and endplate osteophytosis. There is severe bilateral facet arthropathy. There is grade 1 anterolisthesis. There is severe bilateral foraminal stenosis. There is moderate central canal stenosis. IMPRESSION: 1. Multilevel degenerative change throughout the lumbar spine and lower thoracic spine, resulting in stenosis at the aforementioned levels. 2. Grade 1 anterolisthesis of L5 on S1 and retrolisthesis of L2 on L3. 3. Mild scoliosis. Electronically signed by: Pina Huffman MD (11/30/2018 3:59 PM) [place] [id number]
[2018-11-30] MEDS: MINERAL OIL/PETROLATUM TOPICAL CREAM 113GM JAR. TP SCH ×2 (16:11→20:27)
--- NOTE | 2018-11-30 16:41 | NUR ---
Patient void 250 cc on bedpan, PVR 0 to less than 24 ml with bladder scan.
[2018-11-30] MEDS: AMITRIPTYLINE HCL 10 MG TABLET. PO SCH (20:24)
[2018-11-30] MEDS: ATORVASTATIN CALCIUM 10 MG TABLET. PO SCH (20:24)
[2018-11-30] MEDS: DICLOFENAC SODIUM 1% TOPICAL GEL 100GM TUBE. TP SCH (20:26)
--- NOTE | 2018-11-30 22:31 | CONS ---
DATE OF CONSULTATION: LOCATION: She is in room 536. I saw her at the request of Dr. Vaca. She is in room 536, I saw her for rehabilitation evaluation. HISTORY OF PRESENT ILLNESS: This is a 73-year-old female who lives alone in a house where there are no steps. She usually gets up and walk. The patient apparently got more weak and having difficulty to walk secondary to her knee pain. The patient was admitted through the Emergency Room where she was noted with the creatinine being 1.3 and being treated with a diagnosis of acute kidney injury and also possible urinary tract infection as she had increased number of leukocyte esterase in the urinalysis. She denies any dysuria. She admits pain in her lower extremities, mainly in her knees and also some lower back pain. She denies any tingling, numbness sensation in the extremities or any trouble with her bowel or bladder control. PAST MEDICAL HISTORY: Significant for asthmatic bronchitis, coronary artery disease, hypertension, hyperlipidemia, neuropathy, cholecystectomy, hysterectomy, tonsillectomy, rheumatoid arthritis, diabetes mellitus. FAMILY HISTORY: Coronary artery disease. ALLERGIES: She is not known allergic to any medication. 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 PHYSICAL EXAMINATION: On physical examination today revealed an elderly female. 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 She also had limitation of finger extension at metacarpophalangeal joints of both hands. The patient had no significant tenderness to palpation of both hands. She had tenderness to palpation over the sacroiliac joint area, left side more than right side, and also over the medial knee joint line. She had a crepitus on range of motion of her knee joint with mild knee joint effusion, painful range of motion of both hip joints. She also has some tenderness to palpation over both ankles with some edema. The patient had 1-2+ deep tendon reflexes with absent ankle jerks. She had equal perception of touch and pinprick sensation bilaterally. She requires some help with bed mobility and transfers. I have not tested her ambulation skills at this time. She has some dry scaly skin of her legs. 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 Also, patient with known rheumatoid arthritis deformities of both hands and also degenerative joint disease changes in her knees, clinical evidence of peripheral neuropathy in a patient with known diabetes mellitus, hypertension, coronary artery disease, asthmatic bronchitis, hyperlipidemia, obesity. RECOMMENDATION: To proceed with injecting painful knee joint to help ease her pain. Agree with the plan for physical therapy and occupational therapy, to consider transfer to residential care unit when medically stable for continued care on as needed basis. Dr. Vaca, appreciate asking me to participate in the care of this interesting patient. I will be glad to follow her with you as needed for rehabilitation. DOC PEDRO MD DR: KRISTY/manju JOB#: [id number] / [id number]
[2018-12-01 03:00] VITALS: BP 156/77
--- NOTE | 2018-12-01 04:45 | CONS ---
DATE OF CONSULTATION: 11/30/2018 ATTENDING PHYSICIAN: Dr. Olea. The patient was seen at the request of Dr. Vaca for rehab evaluation. HISTORY OF PRESENT ILLNESS: This is a 73-year-old right-handed female who lives alone. No stairs for her to manage. She usually gets around and takes care of herself using a roller walker. Her family checks on her on a regular basis and they noted her becoming more weak and having difficulty to even walk to the door when the ambulance came. She was seen in the Emergency Room, was noted with acute kidney injury with a creatinine bumped up to greater than ____ Dictation Ends Here DOC PEDRO MD DR: KRISTY/manju JOB#: [id number] / [id number]
[2018-12-01 07:00] VITALS: BP 141/74
[2018-12-01] MEDS: oxyCODONE/APAP 7.5/325 1 TAB TABLET PO PRN ×3 (07:29→21:10)
[2018-12-01] MEDS: IV NORMAL SALINE 1000ML BAG 1,000 ML IV SCH (07:33)
[2018-12-01] MEDS: MINERAL OIL/PETROLATUM TOPICAL CREAM 113GM JAR. TP SCH ×2 (07:35→21:10)
[2018-12-01] MEDS: PREGABALIN 50 MG CAPSULE PO SCH ×2 (07:42→21:07)
[2018-12-01] MEDS: LABETALOL HCL 200 MG TABLET PO SCH ×2 (08:36→21:08)
[2018-12-01] MEDS: cloNIDine HCL 0.3 MG TABLET PO SCH ×2 (08:36→21:09)
[2018-12-01] MEDS: GLIMEPIRIDE 2 MG TABLET. PO SCH (08:36)
[2018-12-01] MEDS: INSULIN LISPRO 300 UNITS/3 ML INSULN.PEN. SQ SCH ×3 (08:42→17:00)
--- NOTE | 2018-12-01 09:48 | PDOC ---
PROGRESS NOTES Subjective Subjective She admits continued knee joint pain. While up with physical therapy,she mainly complained about right hip area pain. 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 She had narrowing of knee joint line and deformities of both hands from residuals of her rheumatoid arthritis. Assessment Assessment Problems Medical Problems: (1) JENNIFFER (acute kidney injury) Status: Acute (2) Generalized weakness Status: Acute (3) Urinary tract infection Status: Acute Plan Plan of Care To continue present physical and occupational therapy follow up as tolerated and decide on SNF or rehab unit or home with home health follow up when medically stable. Comment Review of Relevant I have reviewed the following items jorge luis (where applicable) has been applied. Labs Laboratory Tests Test 11/29/18 13:25 11/29/18 14:48 11/30/18 09:20 11/30/18 11:48 White Blood Count 7.2 x10^3/uL (4.0-11.0) Red Blood Count 3.57 x10^6/uL (3.50-5.40) Hemoglobin 11.4 g/dL (12.0-15.5) Hematocrit 34.5 % (36.0-47.0) Mean Corpuscular Volume 97 fL (79-100) Mean Corpuscular Hemoglobin 32 pg (25-35) Mean Corpuscular Hemoglobin Concent 33 g/dL (31-37) Red Cell Distribution Width 13.1 % (11.5-14.5) Platelet Count 249 x10^3/uL (140-400) Neutrophils (%) (Auto) 49 % (31-73) Lymphocytes (%) (Auto) 39 % (24-48) Monocytes (%) (Auto) 9 % (0-9) Eosinophils (%) (Auto) 3 % (0-3) Basophils (%) (Auto) 1 % (0-3) Neutrophils # (Auto) 3.6 x10^3/uL (1.8-7.7) Lymphocytes # (Auto) 2.8 x10^3/uL (1.0-4.8) Monocytes # (Auto) 0.6 x10^3/uL (0.0-1.1) Eosinophils # (Auto) 0.2 x10^3/uL (0.0-0.7) Basophils # (Auto) 0.0 x10^3/uL (0.0-0.2) Sodium Level 143 mmol/L (136-145) 142 mmol/L (136-145) Potassium Level 4.2 mmol/L (3.5-5.1) 4.3 mmol/L (3.5-5.1) Chloride Level 106 mmol/L (98-107) 106 mmol/L (98-107) Carbon Dioxide Level 28 mmol/L (21-32) 28 mmol/L (21-32) Anion Gap 9 (6-14) 8 (6-14) Blood Urea Nitrogen 15 mg/dL (7-20) 13 mg/dL (7-20) Creatinine 1.3 mg/dL (0.6-1.0) 1.1 mg/dL (0.6-1.0) Estimated GFR (Cockcroft-Gault) 48.4 58.7 BUN/Creatinine Ratio 12 (6-20) Glucose Level 101 mg/dL (70-99) 153 mg/dL (70-99) Lactic Acid Level 1.0 mmol/L (0.4-2.0) Calcium Level 9.8 mg/dL (8.5-10.1) 9.5 mg/dL (8.5-10.1) Total Bilirubin 0.3 mg/dL (0.2-1.0) Aspartate Amino Transf (AST/SGOT) 13 U/L (15-37) Alanine Aminotransferase (ALT/SGPT) 16 U/L (14-59) Alkaline Phosphatase 86 U/L (46-116) DJ-Uam-Z-Type Natriuretic Peptide 269 pg/mL (0-124) Total Protein 7.2 g/dL (6.4-8.2) Albumin 3.4 g/dL (3.4-5.0) Albumin/Globulin Ratio 0.9 (1.0-1.7) Urine Collection Type Unknown Urine Color Yellow Urine Clarity Cloudy Urine pH 6.0 Urine Specific [place] 1.020 Urine Protein Negative mg/dL (NEG-TRACE) Urine Glucose (UA) Negative mg/dL (NEG) Urine Ketones (Stick) Negative mg/dL (NEG) Urine Blood Negative (NEG) Urine Nitrite Negative (NEG) Urine Bilirubin Small (NEG) Urine Urobilinogen Dipstick 1.0 mg/dL (0.2 mg/dL) Urine Leukocyte Esterase Large (NEG) Urine RBC Occ /HPF (0-2) Urine WBC 20-40 /HPF (0-4) Urine Squamous Epithelial Cells Many /LPF Urine Bacteria Many /HPF (0-FEW) Urine Mucus Marked /LPF Glucose (Fingerstick) 158 mg/dL (70-99) Test 11/30/18 16:46 11/30/18 20:47 12/01/18 07:10 Glucose (Fingerstick) 118 mg/dL (70-99) 204 mg/dL (70-99) 252 mg/dL (70-99) Laboratory Tests Test 11/30/18 11:48 11/30/18 16:46 11/30/18 20:47 12/01/18 07:10 Glucose (Fingerstick) 158 mg/dL (70-99) 118 mg/dL (70-99) 204 mg/dL (70-99) 252 mg/dL (70-99) Medications Current Medications Ondansetron HCl (Zofran) 4 mg PRN Q8HRS PRN IV NAUSEA/VOMITING; Start 11/29/18 at 14:45; Stop 11/30/18 at 09:04; Status DC Fentanyl Citrate (Fentanyl 2ml Vial) 50 mcg PRN Q1HR PRN IV PAIN Last administered on 11/30/18at 08:33; Start 11/29/18 at 14:45; Stop 11/30/18 at 14:44; Status DC Ceftriaxone Sodium (Rocephin) 1 gm Q24H IVP Last administered on 11/30/18at 15:11; Start 11/29/18 at 16:00 Sodium Chloride 1,000 ml @ 80 mls/hr [id number] IV Last administered on 12/01/18 07:33; Start 11/29/18 at 15:15 Ceftriaxone Sodium (Rocephin) 1 gm 1X ONCE IVP ; Start 11/29/18 at 15:15; Stop 11/29/18 at 15:16; Status UNV Ondansetron HCl (Zofran) 4 mg PRN Q6HRS PRN IV NAUSEA/VOMITING; Start 11/30/18 at 09:15 Acetaminophen (Tylenol) 500 mg PRN Q6HRS PRN PO MILD PAIN / TEMP; Start 11/30/18 at 09:15 Acetaminophen/ Codeine Phosphate (Tylenol #3) 1 tab PRN Q6HRS PRN PO MODERATE PAIN; Start 11/30/18 at 09:15 Albuterol Sulfate (Ventolin Neb Soln) 2.5 mg PRN Q6HRS PRN INH SHORTNESS OF BREATH; Start 11/30/18 at 09:15 Amitriptyline HCl (Elavil) 60 mg QHS PO Last administered on 11/30/18 20:24; Start 11/30/18 at 21:00 Clonidine HCl (Catapres) 0.3 mg BID PO Last administered on 12/01/18 08:36; Start 11/30/18 at 09:30 Diazepam (Valium) 5 mg PRN DAILY PRN PO ANXIETY Last administered on 11/30/18 20:24; Start 11/30/18 at 09:15 Oxycodone/ Acetaminophen (Percocet 7.5/ 325) 2 tab PRN TID PRN PO SEVERE PAIN Last administered on 12/01/18 07:29; Start 11/30/18 at 09:15 Glimepiride (Amaryl) 4 mg DAILYWBKFT PO Last administered on 12/01/18 08:36; Start 11/30/18 at 10:00 Labetalol HCl (Trandate) 200 mg BID PO Last administered on 12/01/18 08:36; Start 11/30/18 at 10:00 Atorvastatin Calcium (Lipitor) 10 mg QHS PO Last administered on 11/30/18 20:24; Start 11/30/18 at 21:00 Pregabalin (Lyrica) 100 mg BID PO Last administered on 12/01/18at 07:42; Start 11/30/18 at 10:00 Prochlorperazine Maleate (Compazine) 10 mg PRN Q8HRS PRN PO NAUSEA/VOMITING; Start 11/30/18 at 09:15 Insulin Human Lispro (HumaLOG) 0-9 UNITS TIDWMEALS SQ Last administered on 12/01/18at 08:42; Start 11/30/18 at 12:00 Dextrose (Dextrose 50%-Water Syringe) 12.5 gm PRN Q15MIN PRN IV SEE COMMENTS; Start 11/30/18 at 11:45 Methylprednisolone Acetate (DEPO-Medrol 40MG VIAL) 40 mg 1X ONCE IM ; Start 11/30/18 at 13:00; Stop 11/30/18 at 13:07; Status DC Methylprednisolone Acetate (DEPO-Medrol 40MG VIAL) 40 mg 1X ONCE IM ; Start 11/30/18 at 13:00; Stop 11/30/18 at 13:07; Status DC Bupivacaine HCl (Sensorcaine-Mpf 0.25%) 10 ml 1X ONCE IJ ; Start 11/30/18 at 13:00; Stop 11/30/18 at 13:07; Status DC Diclofenac Sodium (Voltaren) 1 kristin BID TP Last administered on 11/30/18at 20:26; Start 11/30/18 at 21:00 Multi-Ingred Cream/Lotion/Oil/ Oint (Hydrocerin Cream) 1 kristin BID TP Last administered on 12/01/18at 07:35; Start 11/30/18 at 16:00 Active Scripts Active Reported Lyrica (Pregabalin) 100 Mg Capsule 1 Cap PO BID Percocet 7.5-325 Mg Tablet (Oxycodone/Acetaminophen) 1 Each Tablet 2 Tab PO TID PRN Proair Hfa Inhaler (Albuterol Sulfate) 8.5 Gm Hfa.aer.ad 2 Puff INH PRN Q6HRS PRN Amitriptyline Hcl 10 Mg Tablet 6 Tab PO QHS Glimepiride 4 Mg Tablet 1 Tab PO DAILYWBKFT Compazine (Prochlorperazine Maleate) 10 Mg Tablet 10 Mg PO PRN Q8HRS PRN Diclofenac Sodium 75 Mg Tablet.dr 1 Tab PO BID Pravastatin Sodium 40 Mg Tablet 1 Tab PO QHS Clonidine Hcl 0.3 Mg Tablet 1 Tab PO BID Diazepam 5 Mg Tablet 5 Mg PO PRN DAILY PRN Labetalol Hcl 200 Mg Tablet 1 Tab PO BID Vitals/I & O Vital Sign - Last 24 Hours 11/30/18 11/30/18 11/30/18 11/30/18 10:44 10:46 10:46 11:18 Temp 99.0 99.0 Pulse 55 55 74 Resp 20 20 B/P (MAP) 135/74 135/74 148/74 (98) Pulse Ox 92 98 O2 Delivery Room Air Room Air 11/30/18 11/30/18 11/30/18 11/30/18 12:21 12:30 15:00 19:00 Temp 99.3 98.5 99.4 99.3 98.5 99.4 Pulse 67 64 72 Resp 20 20 18 B/P (MAP) 142/77 (98) 127/77 (94) 175/91 (119) Pulse Ox 97 92 97 98 O2 Delivery Room Air Room Air Room Air Room Air 11/30/18 11/30/18 11/30/18 11/30/18 20:00 20:23 20:25 20:26 Pulse 72 72 Resp 18 B/P (MAP) 175/91 175/91 Pulse Ox 97 O2 Delivery Room Air Room Air 11/30/18 12/01/18 12/01/18 12/01/18 23:00 03:00 07:00 07:29 Temp 98.4 98.6 98.6 98.4 98.6 98.6 Pulse 78 77 73 Resp 18 18 18 18 B/P (MAP) 153/79 (103) 156/77 (103) 141/74 (96) Pulse Ox 95 94 95 94 O2 Delivery Room Air Room Air Room Air Room Air 12/01/18 12/01/18 12/01/18 08:29 08:36 08:36 Pulse 73 73 Resp 20 B/P (MAP) 141/74 141/74 Pulse Ox 94 O2 Delivery Room Air Intake and Output 11/30/18 11/30/18 12/01/18 14:59 22:59 06:59 Intake Total 390 ml 1480 ml Balance 390 ml 1480 ml DOC PEDRO MD Dec 01, 2018 09:48
--- NOTE | 2018-12-01 09:51 | PDOC ---
SUBJECTIVE ROS States feeling better OBJECTIVE Vital Signs Vital Signs Date Time Temp Pulse Resp B/P (MAP) Pulse Ox O2 Delivery O2 Flow Rate FiO2 12/01/18 08:36 73 141/74 12/01/18 08:29 20 94 Room Air 12/01/18 07:00 98.6 98.6 I & 0 Intake and Output 12/01/18 06:59 Intake Total 1870 ml Balance 1870 ml Intake Oral 870 ml IV Total 1000 ml # Voids 11 PHYSICAL EXAM Physical Exam General: NAD HEEN- OM moist NECK supple Heart: Regular rate, Normal S1, Normal S2 Lungs: Clear, Non labored Abdomen: Normal bowel sounds, Soft Extremities: No LE edema Skin: No rashes, No breakdown No [place] NEURO- Grossly normal DIAGNOSIS/ASSESSMENT Assessment & Plan JENNIFFER - Pre-renal in the setting of taking NSAID's Renal function improving with IVF , No labs today Hold NSAID's, avoid Nephrotoxins Supportive care ,monitor CKD stage 2/3- follows with me as OP Next appt on 12/17, advised to keep the appt Lower Ext weakness- Primary and Rehab Following UA WBC's , Leuk esterase+, asymptomatic Per PCP HTN- Stable Will sign off COMMENT/RELEVANT DATA Meds Current Medications Medications (Trade) Dose Ordered Sig/Janay Start Time Stop Time Status Last Admin Dose Admin Acetaminophen (Tylenol) 500 mg PRN Q6HRS PRN 11/30/18 09:15 Acetaminophen/ Codeine Phosphate (Tylenol #3) 1 tab PRN Q6HRS PRN 11/30/18 09:15 Albuterol Sulfate (Ventolin Neb Soln) 2.5 mg PRN Q6HRS PRN 11/30/18 09:15 Amitriptyline HCl (Elavil) 60 mg QHS 11/30/18 21:00 11/30/18 20:24 60 MG Atorvastatin Calcium (Lipitor) 10 mg QHS 11/30/18 21:00 11/30/18 20:24 10 MG Bupivacaine HCl (Sensorcaine-Mpf 0.25%) 10 ml 1X ONCE 11/30/18 13:00 11/30/18 13:07 DC Ceftriaxone Sodium (Rocephin) 1 gm 1X ONCE 11/29/18 15:15 11/29/18 15:16 UNV Clonidine HCl (Catapres) 0.3 mg BID 11/30/18 09:30 12/01/18 08:36 0.3 MG Dextrose (Dextrose 50%-Water Syringe) 12.5 gm PRN Q15MIN PRN 11/30/18 11:45 Diazepam (Valium) 5 mg PRN DAILY PRN 11/30/18 09:15 11/30/18 20:24 5 MG Diclofenac Sodium (Voltaren) 1 kristin BID 11/30/18 21:00 11/30/18 20:26 1 KRISTIN Fentanyl Citrate (Fentanyl 2ml Vial) 50 mcg PRN Q1HR PRN 11/29/18 14:45 11/30/18 14:44 DC 11/30/18 08:33 50 MCG Glimepiride (Amaryl) 4 mg DAILYWBKFT 11/30/18 10:00 12/01/18 08:36 4 MG Insulin Human Lispro (HumaLOG) 0-9 UNITS TIDWMEALS 11/30/18 12:00 12/01/18 08:42 7 UNITS Labetalol HCl (Trandate) 200 mg BID 11/30/18 10:00 12/01/18 08:36 200 MG Methylprednisolone Acetate (DEPO-Medrol 40MG VIAL) 40 mg 1X ONCE 11/30/18 13:00 11/30/18 13:07 DC Multi-Ingred Cream/Lotion/Oil/ Oint (Hydrocerin Cream) 1 kristin BID 11/30/18 16:00 12/01/18 07:35 1 KRISTIN Ondansetron HCl (Zofran) 4 mg PRN Q6HRS PRN 11/30/18 09:15 Oxycodone/ Acetaminophen (Percocet 7.5/ 325) 2 tab PRN TID PRN 11/30/18 09:15 12/01/18 07:29 2 TAB Pregabalin (Lyrica) 100 mg BID 11/30/18 10:00 12/01/18 07:42 100 MG Prochlorperazine Maleate (Compazine) 10 mg PRN Q8HRS PRN 11/30/18 09:15 Sodium Chloride 1,000 ml @ 80 mls/hr [id number] 11/29/18 15:15 12/01/18 07:33 80 MLS/HR Lab Laboratory Tests Test 11/30/18 11:48 11/30/18 16:46 11/30/18 20:47 12/01/18 07:10 Glucose (Fingerstick) 158 mg/dL (70-99) 118 mg/dL (70-99) 204 mg/dL (70-99) 252 mg/dL (70-99) Results All relevant outside records, renal labs, imaging studies, telemetry/EKG's were reviewed. FADY DENIS MD Dec 01, 2018 09:51
--- NOTE | 2018-12-01 09:51 | PDOC ---
PROGRESS NOTES Chief Complaint Chief Complaint InciDental UTI Generalized weakness NARAYAN Smiley, HEIKE BMI 42-obesity Bilateral knee pain and swelling History of Present Illness History of Present Illness creat down to 1.1 from 1.3 Refuses SNU despite PT recommendations Agreeable to home health Dtr sent her in No fevers, no white count I'm giving IV Rocephin - I'm still waiting for urine culture Plan: PT today, home health on discharge pending urine culture Once I have urine culture than home with home health Vitals Vitals Vital Signs Date Time Temp Pulse Resp B/P (MAP) Pulse Ox O2 Delivery O2 Flow Rate FiO2 12/01/18 08:36 73 141/74 12/01/18 08:29 20 94 Room Air 12/01/18 07:00 98.6 98.6 Physical Exam General: Alert, Oriented X3, Cooperative Heart: Regular rate, Normal S1, Normal S2 Lungs: Clear Abdomen: Normal bowel sounds, Soft Extremities: No clubbing, No cyanosis, Other (limited range of motion on flexion bilateral knees,) Skin: No rashes, No breakdown Labs LABS Laboratory Tests Test 11/30/18 11:48 11/30/18 16:46 11/30/18 20:47 12/01/18 07:10 Glucose (Fingerstick) 158 mg/dL (70-99) 118 mg/dL (70-99) 204 mg/dL (70-99) 252 mg/dL (70-99) Review of Systems Review of Systems A 14 point ROS was completed with the following noted as positive: Other systems reviewed and negative. \CONSTITUTIONAL: No fever or chills EYES: No recent changes SKIN: No rash or itching CARDIOVASCULAR: No chest pain, syncope, palpitations, or edema RESPIRATORY: No SOB or cough GASTROINTESTINAL: No nausea, vomiting or abdominal pain NEUROLOGICAL: No headaches or weakness ENDOCRINE: No cold or heat intolerance GENITOURINARY: No urgency or frequency of urination MUSCULOSKELETAL: No back pain or joint pain LYMPHATICS: No enlarged lymph nodes PSYCHIATRIC: No anxiety or depression Assessment and Plan Assessmemt and Plan Problems Medical Problems: (1) JENNIFFER (acute kidney injury) Status: Acute (2) Generalized weakness Status: Acute (3) Urinary tract infection Status: Acute Comment Review of Relevant I have reviewed the following items jorge luis (where applicable) has been applied. Labs Laboratory Tests Test 11/29/18 13:25 11/29/18 14:48 11/30/18 09:20 11/30/18 11:48 White Blood Count 7.2 x10^3/uL (4.0-11.0) Red Blood Count 3.57 x10^6/uL (3.50-5.40) Hemoglobin 11.4 g/dL (12.0-15.5) Hematocrit 34.5 % (36.0-47.0) Mean Corpuscular Volume 97 fL (79-100) Mean Corpuscular Hemoglobin 32 pg (25-35) Mean Corpuscular Hemoglobin Concent 33 g/dL (31-37) Red Cell Distribution Width 13.1 % (11.5-14.5) Platelet Count 249 x10^3/uL (140-400) Neutrophils (%) (Auto) 49 % (31-73) Lymphocytes (%) (Auto) 39 % (24-48) Monocytes (%) (Auto) 9 % (0-9) Eosinophils (%) (Auto) 3 % (0-3) Basophils (%) (Auto) 1 % (0-3) Neutrophils # (Auto) 3.6 x10^3/uL (1.8-7.7) Lymphocytes # (Auto) 2.8 x10^3/uL (1.0-4.8) Monocytes # (Auto) 0.6 x10^3/uL (0.0-1.1) Eosinophils # (Auto) 0.2 x10^3/uL (0.0-0.7) Basophils # (Auto) 0.0 x10^3/uL (0.0-0.2) Sodium Level 143 mmol/L (136-145) 142 mmol/L (136-145) Potassium Level 4.2 mmol/L (3.5-5.1) 4.3 mmol/L (3.5-5.1) Chloride Level 106 mmol/L (98-107) 106 mmol/L (98-107) Carbon Dioxide Level 28 mmol/L (21-32) 28 mmol/L (21-32) Anion Gap 9 (6-14) 8 (6-14) Blood Urea Nitrogen 15 mg/dL (7-20) 13 mg/dL (7-20) Creatinine 1.3 mg/dL (0.6-1.0) 1.1 mg/dL (0.6-1.0) Estimated GFR (Cockcroft-Gault) 48.4 58.7 BUN/Creatinine Ratio 12 (6-20) Glucose Level 101 mg/dL (70-99) 153 mg/dL (70-99) Lactic Acid Level 1.0 mmol/L (0.4-2.0) Calcium Level 9.8 mg/dL (8.5-10.1) 9.5 mg/dL (8.5-10.1) Total Bilirubin 0.3 mg/dL (0.2-1.0) Aspartate Amino Transf (AST/SGOT) 13 U/L (15-37) Alanine Aminotransferase (ALT/SGPT) 16 U/L (14-59) Alkaline Phosphatase 86 U/L (46-116) WG-Rjp-D-Type Natriuretic Peptide 269 pg/mL (0-124) Total Protein 7.2 g/dL (6.4-8.2) Albumin 3.4 g/dL (3.4-5.0) Albumin/Globulin Ratio 0.9 (1.0-1.7) Urine Collection Type Unknown Urine Color Yellow Urine Clarity Cloudy Urine pH 6.0 Urine Specific [place] 1.020 Urine Protein Negative mg/dL (NEG-TRACE) Urine Glucose (UA) Negative mg/dL (NEG) Urine Ketones (Stick) Negative mg/dL (NEG) Urine Blood Negative (NEG) Urine Nitrite Negative (NEG) Urine Bilirubin Small (NEG) Urine Urobilinogen Dipstick 1.0 mg/dL (0.2 mg/dL) Urine Leukocyte Esterase Large (NEG) Urine RBC Occ /HPF (0-2) Urine WBC 20-40 /HPF (0-4) Urine Squamous Epithelial Cells Many /LPF Urine Bacteria Many /HPF (0-FEW) Urine Mucus Marked /LPF Glucose (Fingerstick) 158 mg/dL (70-99) Test 11/30/18 16:46 11/30/18 20:47 12/01/18 07:10 Glucose (Fingerstick) 118 mg/dL (70-99) 204 mg/dL (70-99) 252 mg/dL (70-99) Laboratory Tests Test 11/30/18 11:48 11/30/18 16:46 11/30/18 20:47 12/01/18 07:10 Glucose (Fingerstick) 158 mg/dL (70-99) 118 mg/dL (70-99) 204 mg/dL (70-99) 252 mg/dL (70-99) Medications Current Medications Ondansetron HCl (Zofran) 4 mg PRN Q8HRS PRN IV NAUSEA/VOMITING; Start 11/29/18 at 14:45; Stop 11/30/18 at 09:04; Status DC Fentanyl Citrate (Fentanyl 2ml Vial) 50 mcg PRN Q1HR PRN IV PAIN Last administered on 11/30/18at 08:33; Start 11/29/18 at 14:45; Stop 11/30/18 at 14:44; Status DC Ceftriaxone Sodium (Rocephin) 1 gm Q24H IVP Last administered on 11/30/18at 15:11; Start 11/29/18 at 16:00 Sodium Chloride 1,000 ml @ 80 mls/hr [id number] IV Last administered on 12/01/18at 07:33; Start 11/29/18 at 15:15 Ceftriaxone Sodium (Rocephin) 1 gm 1X ONCE IVP ; Start 11/29/18 at 15:15; Stop 11/29/18 at 15:16; Status UNV Ondansetron HCl (Zofran) 4 mg PRN Q6HRS PRN IV NAUSEA/VOMITING; Start 11/30/18 at 09:15 Acetaminophen (Tylenol) 500 mg PRN Q6HRS PRN PO MILD PAIN / TEMP; Start 11/30/18 at 09:15 Acetaminophen/ Codeine Phosphate (Tylenol #3) 1 tab PRN Q6HRS PRN PO MODERATE PAIN; Start 11/30/18 at 09:15 Albuterol Sulfate (Ventolin Neb Soln) 2.5 mg PRN Q6HRS PRN INH SHORTNESS OF BREATH; Start 11/30/18 at 09:15 Amitriptyline HCl (Elavil) 60 mg QHS PO Last administered on 11/30/18at 20:24; Start 11/30/18 at 21:00 Clonidine HCl (Catapres) 0.3 mg BID PO Last administered on 12/01/18at 08:36; Start 11/30/18 at 09:30 Diazepam (Valium) 5 mg PRN DAILY PRN PO ANXIETY Last administered on 11/30/18 20:24; Start 11/30/18 at 09:15 Oxycodone/ Acetaminophen (Percocet 7.5/ 325) 2 tab PRN TID PRN PO SEVERE PAIN Last administered on 12/01/18 07:29; Start 11/30/18 at 09:15 Glimepiride (Amaryl) 4 mg DAILYWBKFT PO Last administered on 12/01/18 08:36; Start 11/30/18 at 10:00 Labetalol HCl (Trandate) 200 mg BID PO Last administered on 12/01/18 08:36; Start 11/30/18 at 10:00 Atorvastatin Calcium (Lipitor) 10 mg QHS PO Last administered on 11/30/18 20:24; Start 11/30/18 at 21:00 Pregabalin (Lyrica) 100 mg BID PO Last administered on 12/01/18 07:42; Start 11/30/18 at 10:00 Prochlorperazine Maleate (Compazine) 10 mg PRN Q8HRS PRN PO NAUSEA/VOMITING; Start 11/30/18 at 09:15 Insulin Human Lispro (HumaLOG) 0-9 UNITS TIDWMEALS SQ Last administered on 12/01/18 08:42; Start 11/30/18 at 12:00 Dextrose (Dextrose 50%-Water Syringe) 12.5 gm PRN Q15MIN PRN IV SEE COMMENTS; Start 11/30/18 at 11:45 Methylprednisolone Acetate (DEPO-Medrol 40MG VIAL) 40 mg 1X ONCE IM ; Start 11/30/18 at 13:00; Stop 11/30/18 at 13:07; Status DC Methylprednisolone Acetate (DEPO-Medrol 40MG VIAL) 40 mg 1X ONCE IM ; Start 11/30/18 at 13:00; Stop 11/30/18 at 13:07; Status DC Bupivacaine HCl (Sensorcaine-Mpf 0.25%) 10 ml 1X ONCE IJ ; Start 11/30/18 at 13:00; Stop 11/30/18 at 13:07; Status DC Diclofenac Sodium (Voltaren) 1 kristin BID TP Last administered on 11/30/18at 20:26; Start 11/30/18 at 21:00 Multi-Ingred Cream/Lotion/Oil/ Oint (Hydrocerin Cream) 1 kristin BID TP Last administered on 12/01/18at 07:35; Start 11/30/18 at 16:00 Active Scripts Active Reported Lyrica (Pregabalin) 100 Mg Capsule 1 Cap PO BID Percocet 7.5-325 Mg Tablet (Oxycodone/Acetaminophen) 1 Each Tablet 2 Tab PO TID PRN Proair Hfa Inhaler (Albuterol Sulfate) 8.5 Gm Hfa.aer.ad 2 Puff INH PRN Q6HRS PRN Amitriptyline Hcl 10 Mg Tablet 6 Tab PO QHS Glimepiride 4 Mg Tablet 1 Tab PO DAILYWBKFT Compazine (Prochlorperazine Maleate) 10 Mg Tablet 10 Mg PO PRN Q8HRS PRN Diclofenac Sodium 75 Mg Tablet.dr 1 Tab PO BID Pravastatin Sodium 40 Mg Tablet 1 Tab PO QHS Clonidine Hcl 0.3 Mg Tablet 1 Tab PO BID Diazepam 5 Mg Tablet 5 Mg PO PRN DAILY PRN Labetalol Hcl 200 Mg Tablet 1 Tab PO BID Vitals/I & O Vital Sign - Last 24 Hours 11/30/18 11/30/18 11/30/18 11/30/18 10:44 10:46 10:46 11:18 Temp 99.0 99.0 Pulse 55 55 74 Resp 20 20 B/P (MAP) 135/74 135/74 148/74 (98) Pulse Ox 92 98 O2 Delivery Room Air Room Air 11/30/18 11/30/18 11/30/18 11/30/18 12:21 12:30 15:00 19:00 Temp 99.3 98.5 99.4 99.3 98.5 99.4 Pulse 67 64 72 Resp 20 20 18 B/P (MAP) 142/77 (98) 127/77 (94) 175/91 (119) Pulse Ox 97 92 97 98 O2 Delivery Room Air Room Air Room Air Room Air 11/30/18 11/30/18 11/30/18 11/30/18 20:00 20:23 20:25 20:26 Pulse 72 72 Resp 18 B/P (MAP) 175/91 175/91 Pulse Ox 97 O2 Delivery Room Air Room Air 11/30/18 12/01/18 12/01/18 12/01/18 23:00 03:00 07:00 07:29 Temp 98.4 98.6 98.6 98.4 98.6 98.6 Pulse 78 77 73 Resp 18 18 18 18 B/P (MAP) 153/79 (103) 156/77 (103) 141/74 (96) Pulse Ox 95 94 95 94 O2 Delivery Room Air Room Air Room Air Room Air 12/01/18 12/01/18 12/01/18 08:29 08:36 08:36 Pulse 73 73 Resp 20 B/P (MAP) 141/74 141/74 Pulse Ox 94 O2 Delivery Room Air Intake and Output 11/30/18 11/30/18 12/01/18 15:00 23:00 07:00 Intake Total 390 ml 1480 ml Balance 390 ml 1480 ml SARA PATEL MD Dec 01, 2018 09:51
[2018-12-01 11:00] VITALS: BP 122/66
[2018-12-01] MEDS: DICLOFENAC SODIUM 1% TOPICAL GEL 100GM TUBE. TP SCH ×2 (13:21→21:10)
--- NOTE | 2018-12-01 14:18 | NUR ---
NATASHA following pt. PT/OT recommends SNU. Spoke with pt at bedside about SNU and options but pt declined. Pt wants to go home with home health and would like to use [facility]. NATASHA faxed clinicals to [facility], , fax: [phone] to see if they are able to accommodate pt. NATASHA provided pt with [facility] to assist with housing information. Discussed with Physician.
[2018-12-01 15:00] VITALS: BP 145/80
[2018-12-01] MEDS: cefTRIAXone IV Push 1 GM VIAL. IVP SCH (17:08)
[2018-12-01 19:00] VITALS: BP 150/82
[2018-12-01] MEDS: AMITRIPTYLINE HCL 10 MG TABLET. PO SCH (21:07)
[2018-12-01] MEDS: ATORVASTATIN CALCIUM 10 MG TABLET. PO SCH (21:08)
[2018-12-01 23:00] VITALS: BP 158/85
[2018-12-02] MEDS: oxyCODONE/APAP 7.5/325 1 TAB TABLET PO PRN (02:44)
[2018-12-02 03:00] VITALS: BP 144/84
[2018-12-02 07:00] VITALS: BP 160/91
[2018-12-02] MEDS: INSULIN LISPRO 300 UNITS/3 ML INSULN.PEN. SQ SCH ×2 (08:00→11:53)
[2018-12-02 08:06] LABS: BASO % 0 % (0-3); EOS # 0.1 x10^3/uL (0.0-0.7); EOS % 1 % (0-3); HEMOGLOBIN 11.6 g/dL (12.0-15.5); LYMPH % 33 % (24-48); MEAN CORPUSCULAR HEMOGLOBIN 31 pg (25-35); MEAN CORPUSCULAR HGB CONC 32 g/dL (31-37); MEAN CORPUSCULAR VOLUME 97 fL (79-100); MONO # 0.7 x10^3/uL (0.0-1.1); MONO % 8 % (0-9); NEUT # 5.4 x10^3/uL (1.8-7.7); NEUT % 59 % (31-73); PLATELET COUNT 282 x10^3/uL (140-400); RED CELL DISTRIBUTION WIDTH 13.1 % (11.5-14.5); WHITE BLOOD COUNT 9.2 x10^3/uL (4.0-11.0)
[2018-12-02] MEDS: PREGABALIN 50 MG CAPSULE PO SCH (09:10)
[2018-12-02] MEDS: LABETALOL HCL 200 MG TABLET PO SCH (09:10)
[2018-12-02] MEDS: DICLOFENAC SODIUM 1% TOPICAL GEL 100GM TUBE. TP SCH (09:11)
[2018-12-02] MEDS: cloNIDine HCL 0.3 MG TABLET PO SCH (09:11)
[2018-12-02] MEDS: GLIMEPIRIDE 2 MG TABLET. PO SCH (09:11)
[2018-12-02] MEDS: MINERAL OIL/PETROLATUM TOPICAL CREAM 113GM JAR. TP SCH (09:13)
[2018-12-02 09:17] LABS: CALCIUM 9.5 mg/dL (8.5-10.1); CREATININE 1.1 mg/dL (0.6-1.0); GFR 58.7; POTASSIUM 4.3 mmol/L (3.5-5.1)
[2018-12-02] MEDS ORDERED: CIPR500T94 PO (09:25)
--- NOTE | 2018-12-02 09:26 | SNU/HH DC ---
DISCHARGE WITH HOME HEALTH DISCHARGE INFORMATION: Discharge Date: Dec 02, 2018 Final Diagnosis: Problems Medical Problems: (1) JENNIFFER (acute kidney injury) Status: Acute (2) Asthmatic bronchitis Status: Chronic (3) Bilateral knee swelling Status: Acute (4) CAD (coronary artery disease) Status: Chronic (5) CKD (chronic kidney disease), stage II Status: Chronic (6) Degenerative disc disease, lumbar Status: Chronic (7) Degenerative joint disease of left knee Status: Chronic (8) Degenerative joint disease of right knee Status: Chronic (9) Diabetes mellitus Status: Chronic (10) Generalized weakness Status: Acute (11) HLD (hyperlipidemia) Status: Chronic (12) HTN (hypertension) Status: Chronic (13) Knee pain, bilateral Status: Acute (14) Metabolic encephalopathy Status: Acute (15) Obesity Status: Chronic (16) Peripheral neuropathy Status: Chronic (17) Rheumatoid arthritis Status: Chronic (18) Urinary tract infection Status: Acute Condition on Discharge: Stable CODE STATUS: Code Status: Full HOME HEALTH: Face to Face: I certify this patient is under my care and that I, or a nurse practitioner or physician's recovery assistant working with me, had a face to face encounter that meets the physician face to face encounter requirements with this patient on []. Medical Complications: Falls RN For Eval/Treatment: Yes Physical Therapy For: Evalulation/Treatment Occupational Therapy For: Evaluation/Treatment Home Health Aide For: Self-care PANEL FITTER For: Community Resources Pt Meets Homebound Status: Unsteady balance w/ amb, POST DISCHARGE ORDERS: Activity Instructions for Disc: No restrictions, Activity as tolerated, Avoid exertion, Progressive ambulation Weight Bearing Status after Di: No restrictions, As tolerated DIET AFTER DISCHARGE: Regular Wound/Incision Care: No wound care needed CHECKS AFTER DISCHARGE: Checks after discharge: Check blood press - daily, Check blood sugar, ac/hs, Weigh Yourself Daily FOLLOW-UP: PCP to follow Home Health: finish 7 day course abx for uti TREATMENT/EQUIPMENT ORDERS: Adaptive Equipment Issued: Bath Bench, Four wheeled walker, Grab bars, Raised toilet seat w/arms, Raised toilet seat CERTIFICATION STATEMENT: Certification Statement: Certification Statement: Based on the above finding, I certify that this patient is confined to the home and needs intermittent long term care, physical therapy and/or speech therapy, or continues to need occupational therapy.~ This patient is under my care, and I have initiated the establishment of the plan of care.~ This patient will be followed by myself or a community physician who will periodically review the plan of care. Home Meds Active Scripts Ciprofloxacin Hcl (CIPRO) 500 Mg Tablet, 1 TAB PO BID for uti, #14 TAB Prov:SARA PATEL MD 12/02/18 Reported Medications Pregabalin (LYRICA) 100 Mg Capsule, 1 CAP PO BID for nerve pain, #60 CAP 2 Refills 11/29/18 Oxycodone/Apap 7.5-325 (PERCOCET 7.5-325 MG TABLET ) 1 Each Tablet, 2 TAB PO TID PRN for PAIN, #90 TAB 06/13/17 Albuterol Sulfate (PROAIR HFA INHALER) 8.5 Gm Hfa.aer.ad, 2 PUFF INH PRN Q6HRS PRN for SHORTNESS OF BREATH, INHALER 0 Refills 06/13/17 Amitriptyline Hcl (AMITRIPTYLINE HCL) 10 Mg Tablet, 6 TAB PO QHS for sleep, #30 TAB 1 Refill 06/13/17 Glimepiride (GLIMEPIRIDE) 4 Mg Tablet, 1 TAB PO DAILYWBKFT for does not know, #30 TAB 5 Refills 06/13/17 Prochlorperazine Maleate (Compazine) 10 Mg Tablet, 10 MG PO PRN Q8HRS PRN for NAUSEA, TAB 06/13/17 Diclofenac Sodium (DICLOFENAC SODIUM) 75 Mg Tablet.dr, 1 TAB PO BID, #60 TAB 1 Refill 06/13/17 Pravastatin Sodium (PRAVASTATIN SODIUM) 40 Mg Tablet, 1 TAB PO QHS for cholesterol, #90 TAB 1 Refill 06/13/17 Clonidine Hcl (CLONIDINE HCL) 0.3 Mg Tablet, 1 TAB PO BID for htn, #30 TAB 2 Refills 06/13/17 Diazepam (DIAZEPAM) 5 Mg Tablet, 5 MG PO PRN DAILY PRN for ANXIETY, TAB 06/13/17 Labetalol Hcl (LABETALOL HCL) 200 Mg Tablet, 1 TAB PO BID for htn, #60 TAB 5 Refills 06/13/17 SARA PATEL MD Dec 02, 2018 09:26
--- NOTE | 2018-12-02 10:02 | PDOC ---
PROGRESS NOTES Subjective Subjective She admits low back pain and knee pain is less. Objective Objective Vital Signs Date Time Temp Pulse Resp B/P (MAP) Pulse Ox O2 Delivery O2 Flow Rate FiO2 12/02/18 09:11 69 160/91 12/02/18 07:00 97.4 20 96 Room Air 97.4 Intake and Output 12/02/18 06:59 Intake Total 400 ml Balance 400 ml Intake Oral 400 ml # Voids 2 Physical Exam Physical Exam She got up and made a few steps at bedside with supervision and she still stands and walks with bent over posture. Assessment Assessment Problems Medical Problems: (1) JENNIFFER (acute kidney injury) Status: Acute (2) Asthmatic bronchitis Status: Chronic (3) Bilateral knee swelling Status: Acute (4) CAD (coronary artery disease) Status: Chronic (5) CKD (chronic kidney disease), stage II Status: Chronic (6) Degenerative disc disease, lumbar Status: Chronic (7) Degenerative joint disease of left knee Status: Chronic (8) Degenerative joint disease of right knee Status: Chronic (9) Diabetes mellitus Status: Chronic (10) Generalized weakness Status: Acute (11) HLD (hyperlipidemia) Status: Chronic (12) HTN (hypertension) Status: Chronic (13) Knee pain, bilateral Status: Acute (14) Metabolic encephalopathy Status: Acute (15) Obesity Status: Chronic (16) Peripheral neuropathy Status: Chronic (17) Rheumatoid arthritis Status: Chronic (18) Urinary tract infection Status: Acute Plan Plan of Care As she is refusing transfer to SNF or rehab unit,home with home health follow up when medically stable. Comment Review of Relevant I have reviewed the following items jorge luis (where applicable) has been applied. Labs Laboratory Tests Test 11/30/18 11:48 11/30/18 16:46 11/30/18 20:47 12/01/18 07:10 Glucose (Fingerstick) 158 mg/dL (70-99) 118 mg/dL (70-99) 204 mg/dL (70-99) 252 mg/dL (70-99) Test 12/01/18 11:53 12/01/18 16:54 12/01/18 20:47 12/02/18 06:00 Glucose (Fingerstick) 217 mg/dL (70-99) 105 mg/dL (70-99) 161 mg/dL (70-99) White Blood Count 9.2 x10^3/uL (4.0-11.0) Red Blood Count 3.70 x10^6/uL (3.50-5.40) Hemoglobin 11.6 g/dL (12.0-15.5) Hematocrit 36.0 % (36.0-47.0) Mean Corpuscular Volume 97 fL (79-100) Mean Corpuscular Hemoglobin 31 pg (25-35) Mean Corpuscular Hemoglobin Concent 32 g/dL (31-37) Red Cell Distribution Width 13.1 % (11.5-14.5) Platelet Count 282 x10^3/uL (140-400) Neutrophils (%) (Auto) 59 % (31-73) Lymphocytes (%) (Auto) 33 % (24-48) Monocytes (%) (Auto) 8 % (0-9) Eosinophils (%) (Auto) 1 % (0-3) Basophils (%) (Auto) 0 % (0-3) Neutrophils # (Auto) 5.4 x10^3/uL (1.8-7.7) Lymphocytes # (Auto) 3.0 x10^3/uL (1.0-4.8) Monocytes # (Auto) 0.7 x10^3/uL (0.0-1.1) Eosinophils # (Auto) 0.1 x10^3/uL (0.0-0.7) Basophils # (Auto) 0.0 x10^3/uL (0.0-0.2) Test 12/02/18 06:10 12/02/18 07:42 Sodium Level 142 mmol/L (136-145) Potassium Level 4.3 mmol/L (3.5-5.1) Chloride Level 107 mmol/L (98-107) Carbon Dioxide Level 26 mmol/L (21-32) Anion Gap 9 (6-14) Blood Urea Nitrogen 22 mg/dL (7-20) Creatinine 1.1 mg/dL (0.6-1.0) Estimated GFR (Cockcroft-Gault) 58.7 Glucose Level 167 mg/dL (70-99) Calcium Level 9.5 mg/dL (8.5-10.1) Glucose (Fingerstick) 140 mg/dL (70-99) Laboratory Tests Test 12/01/18 11:53 12/01/18 16:54 7/30/19 20:47 12/02/18 06:00 Glucose (Fingerstick) 217 mg/dL (70-99) 105 mg/dL (70-99) 161 mg/dL (70-99) White Blood Count 9.2 x10^3/uL (4.0-11.0) Red Blood Count 3.70 x10^6/uL (3.50-5.40) Hemoglobin 11.6 g/dL (12.0-15.5) Hematocrit 36.0 % (36.0-47.0) Mean Corpuscular Volume 97 fL (79-100) Mean Corpuscular Hemoglobin 31 pg (25-35) Mean Corpuscular Hemoglobin Concent 32 g/dL (31-37) Red Cell Distribution Width 13.1 % (11.5-14.5) Platelet Count 282 x10^3/uL (140-400) Neutrophils (%) (Auto) 59 % (31-73) Lymphocytes (%) (Auto) 33 % (24-48) Monocytes (%) (Auto) 8 % (0-9) Eosinophils (%) (Auto) 1 % (0-3) Basophils (%) (Auto) 0 % (0-3) Neutrophils # (Auto) 5.4 x10^3/uL (1.8-7.7) Lymphocytes # (Auto) 3.0 x10^3/uL (1.0-4.8) Monocytes # (Auto) 0.7 x10^3/uL (0.0-1.1) Eosinophils # (Auto) 0.1 x10^3/uL (0.0-0.7) Basophils # (Auto) 0.0 x10^3/uL (0.0-0.2) Test 12/02/18 06:10 12/02/18 07:42 Sodium Level 142 mmol/L (136-145) Potassium Level 4.3 mmol/L (3.5-5.1) Chloride Level 107 mmol/L (98-107) Carbon Dioxide Level 26 mmol/L (21-32) Anion Gap 9 (6-14) Blood Urea Nitrogen 22 mg/dL (7-20) Creatinine 1.1 mg/dL (0.6-1.0) Estimated GFR (Cockcroft-Gault) 58.7 Glucose Level 167 mg/dL (70-99) Calcium Level 9.5 mg/dL (8.5-10.1) Glucose (Fingerstick) 140 mg/dL (70-99) Medications Current Medications Ondansetron HCl (Zofran) 4 mg PRN Q8HRS PRN IV NAUSEA/VOMITING; Start 11/29/18 at 14:45; Stop 11/30/18 at 09:04; Status DC Fentanyl Citrate (Fentanyl 2ml Vial) 50 mcg PRN Q1HR PRN IV PAIN Last administered on 11/30/18at 08:33; Start 11/29/18 at 14:45; Stop 11/30/18 at 14:44; Status DC Ceftriaxone Sodium (Rocephin) 1 gm Q24H IVP Last administered on 12/01/18at 17:08; Start 11/29/18 at 16:00 Sodium Chloride 1,000 ml @ 80 mls/hr [id number] IV Last administered on 12/01/18at 07:33; Start 11/29/18 at 15:15; Stop 12/01/18 at 10:13; Status DC Ceftriaxone Sodium (Rocephin) 1 gm 1X ONCE IVP ; Start 11/29/18 at 15:15; Stop 11/29/18 at 15:16; Status UNV Ondansetron HCl (Zofran) 4 mg PRN Q6HRS PRN IV NAUSEA/VOMITING; Start 11/30/18 at 09:15 Acetaminophen (Tylenol) 500 mg PRN Q6HRS PRN PO MILD PAIN / TEMP; Start 11/30/18 at 09:15 Acetaminophen/ Codeine Phosphate (Tylenol #3) 1 tab PRN Q6HRS PRN PO MODERATE PAIN; Start 11/30/18 at 09:15 Albuterol Sulfate (Ventolin Neb Soln) 2.5 mg PRN Q6HRS PRN INH SHORTNESS OF BREATH; Start 11/30/18 at 09:15 Amitriptyline HCl (Elavil) 60 mg QHS PO Last administered on 12/01/18at 21:07; Start 11/30/18 at 21:00 Clonidine HCl (Catapres) 0.3 mg BID PO Last administered on 12/02/18at 09:11; Start 11/30/18 at 09:30 Diazepam (Valium) 5 mg PRN DAILY PRN PO ANXIETY Last administered on 11/30/18 20:24; Start 11/30/18 at 09:15 Oxycodone/ Acetaminophen (Percocet 7.5/ 325) 2 tab PRN TID PRN PO SEVERE PAIN Last administered on 12/02/18 02:44; Start 11/30/18 at 09:15 Glimepiride (Amaryl) 4 mg DAILYWBKFT PO Last administered on 12/02/18 09:11; Start 11/30/18 at 10:00 Labetalol HCl (Trandate) 200 mg BID PO Last administered on 12/02/18 09:10; Start 11/30/18 at 10:00 Atorvastatin Calcium (Lipitor) 10 mg QHS PO Last administered on 12/01/18 21:08; Start 11/30/18 at 21:00 Pregabalin (Lyrica) 100 mg BID PO Last administered on 12/02/18 09:10; Start 11/30/18 at 10:00 Prochlorperazine Maleate (Compazine) 10 mg PRN Q8HRS PRN PO NAUSEA/VOMITING; Start 11/30/18 at 09:15 Insulin Human Lispro (HumaLOG) 0-9 UNITS TIDWMEALS SQ Last administered on 12/01/18 13:27; Start 11/30/18 at 12:00 Dextrose (Dextrose 50%-Water Syringe) 12.5 gm PRN Q15MIN PRN IV SEE COMMENTS; Start 11/30/18 at 11:45 Methylprednisolone Acetate (DEPO-Medrol 40MG VIAL) 40 mg 1X ONCE IM ; Start 11/30/18 at 13:00; Stop 11/30/18 at 13:07; Status DC Methylprednisolone Acetate (DEPO-Medrol 40MG VIAL) 40 mg 1X ONCE IM ; Start 11/30/18 at 13:00; Stop 11/30/18 at 13:07; Status DC Bupivacaine HCl (Sensorcaine-Mpf 0.25%) 10 ml 1X ONCE IJ ; Start 11/30/18 at 13:00; Stop 11/30/18 at 13:07; Status DC Diclofenac Sodium (Voltaren) 1 kristin BID TP Last administered on 12/02/18 09:11; Start 11/30/18 at 21:00 Multi-Ingred Cream/Lotion/Oil/ Oint (Hydrocerin Cream) 1 kristin BID TP Last administered on 12/02/18at 09:13; Start 11/30/18 at 16:00 Active Scripts Active Cipro (Ciprofloxacin Hcl) 500 Mg Tablet 1 Tab PO BID Reported Lyrica (Pregabalin) 100 Mg Capsule 1 Cap PO BID Percocet 7.5-325 Mg Tablet (Oxycodone/Acetaminophen) 1 Each Tablet 2 Tab PO TID PRN Proair Hfa Inhaler (Albuterol Sulfate) 8.5 Gm Hfa.aer.ad 2 Puff INH PRN Q6HRS PRN Amitriptyline Hcl 10 Mg Tablet 6 Tab PO QHS Glimepiride 4 Mg Tablet 1 Tab PO DAILYWBKFT Compazine (Prochlorperazine Maleate) 10 Mg Tablet 10 Mg PO PRN Q8HRS PRN Diclofenac Sodium 75 Mg Tablet.dr 1 Tab PO BID Pravastatin Sodium 40 Mg Tablet 1 Tab PO QHS Clonidine Hcl 0.3 Mg Tablet 1 Tab PO BID Diazepam 5 Mg Tablet 5 Mg PO PRN DAILY PRN Labetalol Hcl 200 Mg Tablet 1 Tab PO BID Vitals/I & O Vital Sign - Last 24 Hours 12/01/18 12/01/18 12/01/18 12/01/18 11:00 13:20 14:20 15:00 Temp 98.5 98.3 98.5 98.3 Pulse 76 70 Resp 18 18 18 18 B/P (MAP) 122/66 (84) 145/80 (101) Pulse Ox 98 98 100 100 O2 Delivery Room Air Room Air Room Air 12/01/18 12/01/18 12/01/18 12/01/18 19:00 20:00 21:08 21:09 Temp 98.6 98.6 Pulse 72 72 72 Resp 18 B/P (MAP) 150/82 (104) 150/82 150/82 Pulse Ox 97 O2 Delivery Room Air Room Air 12/01/18 12/01/18 12/02/18 12/02/18 21:10 23:00 02:44 03:00 Temp 98.7 98.3 98.7 98.3 Pulse 72 67 Resp 18 18 B/P (MAP) 158/85 (109) 144/84 (104) Pulse Ox 97 97 95 O2 Delivery Room Air Room Air Room Air Room Air 12/02/18 12/02/18 12/02/18 12/02/18 03:53 07:00 09:10 09:11 Temp 97.4 97.4 Pulse 69 69 69 Resp 20 B/P (MAP) 160/91 (114) 160/91 160/91 Pulse Ox 96 O2 Delivery Room Air Room Air Intake and Output 12/01/18 12/01/18 12/02/18 14:59 22:59 06:59 Intake Total 400 ml Balance 400 ml DOC PEDRO MD Dec 02, 2018 10:02
[2018-12-02 11:00] VITALS: BP 152/86
--- NOTE | 2018-12-02 11:26 | PDOC3 ---
Discharge Summary Visit Information Date of Admission: Nov 29, 2018 Date of Discharge: Dec 02, 2018 Admitting Diagnosis Comment: InciDental UTI Generalized weakness AK I, VMN BMI 42-obesity Bilateral knee pain and swelling Final Diagnosis Problems Medical Problems: (1) JENNIFFER (acute kidney injury) Status: Acute (2) Asthmatic bronchitis Status: Chronic (3) Bilateral knee swelling Status: Acute (4) CAD (coronary artery disease) Status: Chronic (5) CKD (chronic kidney disease), stage II Status: Chronic (6) Degenerative disc disease, lumbar Status: Chronic (7) Degenerative joint disease of left knee Status: Chronic (8) Degenerative joint disease of right knee Status: Chronic (9) Diabetes mellitus Status: Chronic (10) Generalized weakness Status: Acute (11) HLD (hyperlipidemia) Status: Chronic (12) HTN (hypertension) Status: Chronic (13) Knee pain, bilateral Status: Acute (14) Metabolic encephalopathy Status: Acute (15) Obesity Status: Chronic (16) Peripheral neuropathy Status: Chronic (17) Rheumatoid arthritis Status: Chronic (18) Urinary tract infection Status: Acute Brief Hospital Course Allergies Allergies Coded Allergies Type Severity Reaction Last Updated Verified No Known Drug Allergies 06/10/17 No Vital Signs Vital Signs Date Time Temp Pulse Resp B/P (MAP) Pulse Ox O2 Delivery O2 Flow Rate FiO2 12/02/18 09:11 69 160/91 12/02/18 07:00 97.4 20 96 Room Air 97.4 Lab Results Laboratory Tests Test 11/30/18 11:48 11/30/18 16:46 11/30/18 20:47 12/01/18 07:10 Glucose (Fingerstick) 158 mg/dL (70-99) 118 mg/dL (70-99) 204 mg/dL (70-99) 252 mg/dL (70-99) Test 12/01/18 11:53 12/01/18 16:54 12/01/18 20:47 12/02/18 06:00 Glucose (Fingerstick) 217 mg/dL (70-99) 105 mg/dL (70-99) 161 mg/dL (70-99) White Blood Count 9.2 x10^3/uL (4.0-11.0) Red Blood Count 3.70 x10^6/uL (3.50-5.40) Hemoglobin 11.6 g/dL (12.0-15.5) Hematocrit 36.0 % (36.0-47.0) Mean Corpuscular Volume 97 fL (79-100) Mean Corpuscular Hemoglobin 31 pg (25-35) Mean Corpuscular Hemoglobin Concent 32 g/dL (31-37) Red Cell Distribution Width 13.1 % (11.5-14.5) Platelet Count 282 x10^3/uL (140-400) Neutrophils (%) (Auto) 59 % (31-73) Lymphocytes (%) (Auto) 33 % (24-48) Monocytes (%) (Auto) 8 % (0-9) Eosinophils (%) (Auto) 1 % (0-3) Basophils (%) (Auto) 0 % (0-3) Neutrophils # (Auto) 5.4 x10^3/uL (1.8-7.7) Lymphocytes # (Auto) 3.0 x10^3/uL (1.0-4.8) Monocytes # (Auto) 0.7 x10^3/uL (0.0-1.1) Eosinophils # (Auto) 0.1 x10^3/uL (0.0-0.7) Basophils # (Auto) 0.0 x10^3/uL (0.0-0.2) Test 12/02/18 06:10 12/02/18 07:42 Sodium Level 142 mmol/L (136-145) Potassium Level 4.3 mmol/L (3.5-5.1) Chloride Level 107 mmol/L (98-107) Carbon Dioxide Level 26 mmol/L (21-32) Anion Gap 9 (6-14) Blood Urea Nitrogen 22 mg/dL (7-20) Creatinine 1.1 mg/dL (0.6-1.0) Estimated GFR (Cockcroft-Gault) 58.7 Glucose Level 167 mg/dL (70-99) Calcium Level 9.5 mg/dL (8.5-10.1) Glucose (Fingerstick) 140 mg/dL (70-99) Laboratory Tests Test 12/01/18 11:53 12/01/18 16:54 12/01/18 20:47 12/02/18 06:00 Glucose (Fingerstick) 217 mg/dL (70-99) 105 mg/dL (70-99) 161 mg/dL (70-99) White Blood Count 9.2 x10^3/uL (4.0-11.0) Red Blood Count 3.70 x10^6/uL (3.50-5.40) Hemoglobin 11.6 g/dL (12.0-15.5) Hematocrit 36.0 % (36.0-47.0) Mean Corpuscular Volume 97 fL (79-100) Mean Corpuscular Hemoglobin 31 pg (25-35) Mean Corpuscular Hemoglobin Concent 32 g/dL (31-37) Red Cell Distribution Width 13.1 % (11.5-14.5) Platelet Count 282 x10^3/uL (140-400) Neutrophils (%) (Auto) 59 % (31-73) Lymphocytes (%) (Auto) 33 % (24-48) Monocytes (%) (Auto) 8 % (0-9) Eosinophils (%) (Auto) 1 % (0-3) Basophils (%) (Auto) 0 % (0-3) Neutrophils # (Auto) 5.4 x10^3/uL (1.8-7.7) Lymphocytes # (Auto) 3.0 x10^3/uL (1.0-4.8) Monocytes # (Auto) 0.7 x10^3/uL (0.0-1.1) Eosinophils # (Auto) 0.1 x10^3/uL (0.0-0.7) Basophils # (Auto) 0.0 x10^3/uL (0.0-0.2) Test 12/02/18 06:10 12/02/18 07:42 Sodium Level 142 mmol/L (136-145) Potassium Level 4.3 mmol/L (3.5-5.1) Chloride Level 107 mmol/L (98-107) Carbon Dioxide Level 26 mmol/L (21-32) Anion Gap 9 (6-14) Blood Urea Nitrogen 22 mg/dL (7-20) Creatinine 1.1 mg/dL (0.6-1.0) Estimated GFR (Cockcroft-Gault) 58.7 Glucose Level 167 mg/dL (70-99) Calcium Level 9.5 mg/dL (8.5-10.1) Glucose (Fingerstick) 140 mg/dL (70-99) Brief Hospital Course Ms. Massey is a 73 old [place] female who was brought in by daughter because of generalized weakness. Initial thoughts was UTI, urine culture is pending but she is nontoxic appearing and tolerating IV Rocephin fine. I'm comfortable discharging by mouth Cipro PT recommends SNU but he adamantly refuses and we are sending on Cipro home health Otherwise continue all other meds. She had an element of mild JENNIFFER, better with IV fluid overnight Consults: physitary Proc; None Pt seen and examined Dc < 30 Discharge Information Condition at Discharge: Improved, Stable Disposition/Orders: D/C to Home w/ HH Scheduled Amitriptyline Hcl (Amitriptyline Hcl) 10 Mg Tablet, 6 TAB PO QHS for sleep, #30 Ref 1 (Reported) Entered as Reported by: HELENA ROGERS on 06/13/17957 Last Taken: Unknown Dose on 11/27/18 2100 Last Action: Continued on 11/30/18902 by SARA PATEL Ciprofloxacin Hcl (Cipro) 500 Mg Tablet, 1 TAB PO BID for uti, #14 Prescribed by: SARA PATEL on 12/02/18 09 Clonidine Hcl (Clonidine Hcl) 0.3 Mg Tablet, 1 TAB PO BID for htn, #30 Ref 2 (Reported) Entered as Reported by: HELENA ROGERS on 06/13/17957 Last Taken: Unknown Dose on 11/28/18 0800 Last Action: Continued on 11/30/18902 by SARA PATEL Diclofenac Sodium (Diclofenac Sodium) 75 Mg Tablet.dr, 1 TAB PO BID, #60 Ref 1 (Reported) Entered as Reported by: HELENA ROGERS on 06/13/17957 Last Action: HELD on 11/30/18902 by SARA PATEL Glimepiride (Glimepiride) 4 Mg Tablet, 1 TAB PO DAILYWBKFT for does not know, #30 Ref 5 (Reported) Entered as Reported by: HELENA ROGERS on 06/13/17957 Last Taken: Unknown Dose on Unknown Date & Time Last Action: Converted on 11/30/18902 by SARA PATEL Labetalol Hcl (Labetalol Hcl) 200 Mg Tablet, 1 TAB PO BID for htn, #60 Ref 5 (Reported) Entered as Reported by: HELENA ROGERS on 06/13/17957 Last Taken: Unknown Dose on 11/28/18799 Last Action: Converted on 11/30/18902 by SAAR PATEL Pravastatin Sodium (Pravastatin Sodium) 40 Mg Tablet, 1 TAB PO QHS for cholesterol, #90 Ref 1 (Reported) Entered as Reported by: HELENA ROGERS on 06/13/17957 Last Taken: Unknown Dose on 11/27/182099 Last Action: Converted on 11/30/18902 by SARA PATEL Pregabalin (Lyrica) 100 Mg Capsule, 1 CAP PO BID for nerve pain, #60 Ref 2 ( Reported) Entered as Reported by: VADIM NEGRON on 11/29/181710 Last Taken: Unknown Dose on 11/29/18899 Last Action: Converted on 11/30/18902 by SARA PATEL Scheduled PRN Albuterol Sulfate (Proair Hfa Inhaler) 8.5 Gm Hfa.aer.ad, 2 PUFF INH PRN Q6HRS PRN for SHORTNESS OF BREATH, Ref 0 (Reported) Entered as Reported by: HELENA ROGERS on 06/13/17957 Last Taken: Unknown Dose on Unknown Date & Time Last Action: Continued on 11/30/18902 by SARA PATEL Diazepam (Diazepam) 5 Mg Tablet, 5 MG PO PRN DAILY PRN for ANXIETY, (Reported) Entered as Reported by: HELENA ROGERS on 06/13/17957 Last Taken: Unknown Dose on 11/27/18799 Last Action: Continued on 902 by SARA PATEL Oxycodone/Apap 7.5-325 (Percocet 7.5-325 Mg Tablet ) 1 Each Tablet, 2 TAB PO TID PRN for PAIN, #90 (Reported) Entered as Reported by: HELENA ROGERS on 06/13/17957 Last Taken: Unknown Dose on 11/29/18799 Last Action: Continued on 11/30/18902 by SARA PATEL Prochlorperazine Maleate (Compazine) 10 Mg Tablet, 10 MG PO PRN Q8HRS PRN for NAUSEA, (Reported) Entered as Reported by: HELENA ROGERS on 06/13/17957 Last Taken: Unknown Dose on Unknown Date & Time Last Action: Converted on 11/30/18 0903 by SARA CORONA MD Dec 02, 2018 11:26
--- NOTE | 2018-12-02 13:00 | NUR ---
PATIENTS' DAUGHTER HERE, DISCHARGE INSTRUCTIONS GIVEN, QUESTIONS AND CONCERNS ANSWERED, PATIENT AND DAUGHTER VERBALIZED UNDERSTANDING OF DISCHARGE INFORMATION INCLUDING TAKING ALL MEDICATIONS INSTRUCTED AND FOLLOWING UP WITH HER PRIMARY PROVIDER IN 1-2 WEEKS. SALINE LOCK REMOVED FROM LEFT HAND PER BIOMEDICAL SERVICE ENGINEER PRIOR TO DISCHARGE. PATIENT INFORMED THAT SHE WOULD BE FOLLOWED AT HOME BY [facility].
--- NOTE | 2018-12-02 13:23 | NUR ---
Orders for home health faxed to [facility]. Spoke with [facility] and confirmed they are able to take pt on service. RN notified.
--- NOTE | 2018-12-02 13:36 | NUR ---
PATIENT LEAVES THE UNIT PER W/C, EMOTIONAL SUPPORT GIVEN, FOLLOW UP APPOINTMENTS ENCOURAGED.
[2018-12-02] MEDS ORDERED: CEFDINIR 300 MG CAPSULE PO SCH (21:00)
== END 2018-12-02 13:36 | disposition home health service (06) | DRG 682 ==
LOC: ER 11:57 → 6 SOUTH 14:27 → 5 NORTH 11-30 12:00
PROVIDERS: ADMIT Internal Medicine; ATTEND Internal Medicine
PROC: 3E0U33Z Introduction of Anti-inflammatory into Joints, Percutaneous Approach (ICD-10-PCS; principal; 2018-11-30)
PROC: 3E0U3BZ Introduction of Anesthetic Agent into Joints, Percutaneous Approach (ICD-10-PCS; 2018-11-30)
DX: N17.0 Acute kidney failure with tubular necrosis (principal); G93.41 Metabolic encephalopathy; N39.0 Urinary tract infection, site not specified; Z68.41 Body mass index [BMI] 40.0-44.9, adult; M51.36 Other intervertebral disc degeneration, lumbar region; J45.909 Unspecified asthma, uncomplicated; I25.10 Atherosclerotic heart disease of native coronary artery without angina pectoris; I12.9 Hypertensive chronic kidney disease with stage 1 through stage 4 chronic kidney disease, or unspecified chronic kidney disease; E78.5 Hyperlipidemia, unspecified; M06.9 Rheumatoid arthritis, unspecified; E11.42 Type 2 diabetes mellitus with diabetic polyneuropathy; E11.22 Type 2 diabetes mellitus with diabetic chronic kidney disease; M17.0 Bilateral primary osteoarthritis of knee; G89.29 Other chronic pain; N18.2 Chronic kidney disease, stage 2 (mild); E66.01 Morbid (severe) obesity due to excess calories; Z90.710 Acquired absence of both cervix and uterus; Z90.49 Acquired absence of other specified parts of digestive tract; Z82.49 Family history of ischemic heart disease and other diseases of the circulatory system; Z86.73 Personal history of transient ischemic attack (TIA), and cerebral infarction without residual deficits
CPT/HCPCS: 36415; 72100; 72131; 73130; 73565; 73610; 80048; 80053; 81001; 82962; 83605; 83880; 85025; 87086; J0696; J1815; J3010; J7030; 97110; 97530; 97535; 99285-25

== ENCOUNTER 2018-12-06 12:45 | Emergency (ER) | payer OTHER, MEDICAID ==
[~2018-12-06] VITALS: Ht 175.3 cm; Wt 117.9 kg
[~2018-12-06 12:45] MED LIST changes: +CIPR500T94 PO; +PREG100C PO
[2018-12-06 12:52] VITALS: BP 135/71
--- NOTE | 2018-12-06 13:02 | PHYS DOC ---
Past Medical History Past Medical History: Asthma, Heart Disease, Hypertension, TIA, Other Additional Past Medical Histor: NEUROPATHY Past Surgical History: Cholecystectomy, Hysterectomy, Tonsillectomy Alcohol Use: None Drug Use: None Adult General Chief Complaint Chief Complaint: MECHANICAL FALL HPI HPI 73-year-old female who was just released from the hospital approximately 4 days ago presents after she tripped over the entrance to door landed on her knees. She states now she is having increasing pain in her knees. She had a similar problem that caused her stay in the hospital previously. She did not hit her head she denies any neck pain or any other orthopedic injuries. She's not had any fever chills or sweats. She does describe some generalized weakness.[] Review of Systems Review of Systems Constitutional: Denies fever or chills [] Eyes: Denies change in visual acuity, redness, or eye pain [] HENT: Denies nasal congestion or sore throat [] Respiratory: Denies cough or shortness of breath [] Cardiovascular: No additional information not addressed in HPI [] GI: Denies abdominal pain, nausea, vomiting, bloody stools or diarrhea [] : Denies dysuria or hematuria [] Musculoskeletal: Bilateral knee pain[] Integument: Denies rash or skin lesions [] Neurologic: Denies headache, focal weakness or sensory changes [] Endocrine: Denies polyuria or polydipsia [] All other systems were reviewed and found to be within normal limits, except as documented in this note. Allergies Allergies Allergies Coded Allergies Type Severity Reaction Last Updated Verified No Known Drug Allergies 06/10/17 No Physical Exam Physical Exam Constitutional: Well developed, well nourished, no acute distress, non-toxic appearance. [] HENT: Normocephalic, atraumatic, bilateral external ears normal, oropharynx moist, no oral exudates, nose normal. [] Eyes: PERRLA, EOMI, conjunctiva normal, no discharge. [] Neck: Normal range of motion, no tenderness, supple, no stridor. [] Cardiovascular:Heart rate regular rhythm, no murmur [] Lungs & Thorax: Bilateral breath sounds clear to auscultation [] Abdomen: Bowel sounds normal, soft, no tenderness, no masses, no pulsatile masses. [] Skin: Warm, dry, no erythema, no rash. [] Back: No tenderness, no CVA tenderness. [] Extremities: No tenderness, no cyanosis, no clubbing, ROM intact, no edema. [] Neurologic: Alert and oriented X 3, normal motor function, normal sensory function, no focal deficits noted. [] Psychologic: Affect normal, judgement normal, mood normal. [] Current Patient Data Vital Signs Vital Signs Date Time Temp Pulse Resp B/P (MAP) Pulse Ox O2 Delivery O2 Flow Rate FiO2 12/06/18 12:52 99.3 66 20 135/71 (92) 97 Room Air 99.3 EKG EKG [] Radiology/Procedures Radiology/Procedures [] Impressions: PROCEDURE: KNEE BILAT 3V KNEE BILAT 3V 12/06/2018 1:00 PM INDICATION: Knee injury COMPARISON: Bilateral knee radiograph November 30, 2018 TECHNIQUE: 3 views of each knee are provided. FINDINGS: Right knee: There is mild to moderate medial femorotibial osteoarthrosis with joint space narrowing, marginal osteophytosis and subcortical sclerosis. Moderate lateral femorotibial osteoarthrosis with subcortical sclerosis and marginal osteophytosis. There is no significant knee joint effusion. Mild patellofemoral osteoarthrosis of marginal osteophytosis. No acute fracture or dislocation. Left knee: Mild medial and moderate lateral femorotibial osteoarthrosis with joint space narrowing, subcortical sclerosis. Subchondral cystic changes are identified along the lateral femoral condyle and lateral tibial plateau. Moderate patellofemoral osteoarthrosis with small knee joint effusion. No acute fracture or dislocation. Findings are not significantly changed since November 30, 2018. IMPRESSION: No acute fracture or dislocation. Moderate bilateral knee joint osteoarthrosis, as described in detail above. Findings are not significantly changed. Small left knee joint effusion. If symptoms persist, recommend repeat radiographs in 7-10 days versus cross-sectional imaging. Course & Med Decision Making Course & Med Decision Making Pertinent Labs and Imaging studies reviewed. (See chart for details) [ED course: Evaluation reveals a 73-year-old female with a previous diagnosis of urinary tract infection. She is currently being treated with antibiotics. She did fall and injure both of her knees. X-rays did not reveal any acute findings. Patient is safe for discharge home at this time.] Dragon Disclaimer Dragon Disclaimer This electronic medical record was generated, in whole or in part, using a voice recognition dictation system. Departure Departure Impression: Primary Impression: Knee contusion Disposition: HOME, SELF-CARE Condition: STABLE Referrals: TOAN REYES (PCP) Patient Instructions: Contusion Additional Instructions: Return to the emergency department with any new or concerning symptoms Problem Qualifiers Primary Impression: Knee contusion Encounter type: initial encounter Laterality: unspecified laterality Qualified Codes: S80.00XA - Contusion of unspecified knee, initial encounter BERTO FIGUEROA DO Dec 06, 2018 13:02
--- NOTE | 2018-12-06 13:22 | RAD ---
KNEE BILAT 3V 12/06/2018 1:00 PM INDICATION: Knee injury COMPARISON: Bilateral knee radiograph November 30, 2018 TECHNIQUE: 3 views of each knee are provided. FINDINGS: Right knee: There is mild to moderate medial femorotibial osteoarthrosis with joint space narrowing, marginal osteophytosis and subcortical sclerosis. Moderate lateral femorotibial osteoarthrosis with subcortical sclerosis and marginal osteophytosis. There is no significant knee joint effusion. Mild patellofemoral osteoarthrosis of marginal osteophytosis. No acute fracture or dislocation. Left knee: Mild medial and moderate lateral femorotibial osteoarthrosis with joint space narrowing, subcortical sclerosis. Subchondral cystic changes are identified along the lateral femoral condyle and lateral tibial plateau. Moderate patellofemoral osteoarthrosis with small knee joint effusion. No acute fracture or dislocation. Findings are not significantly changed since November 30, 2018. IMPRESSION: No acute fracture or dislocation. Moderate bilateral knee joint osteoarthrosis, as described in detail above. Findings are not significantly changed. Small left knee joint effusion. If symptoms persist, recommend repeat radiographs in 7-10 days versus cross-sectional imaging. Electronically signed by: Ninfa Mittal MD (12/06/2018 1:19 PM) [facility]
[2018-12-06] MEDS ORDERED: oxyCODONE/APAP 5/325 1 TAB TABLET PO ONE (14:00)
[2018-12-09] MEDS ORDERED: OXYC1TAB19 PO (14:04)
[2018-12-09] MEDS ORDERED: DIAZ5TAB4 PO (14:04)
[2018-12-09] MEDS ORDERED: INSU100I13 SQ (14:05)
[2018-12-09] MEDS ORDERED: POLY17PO29 PO (14:05)
[2018-12-09] MEDS ORDERED: PREG100C PO (14:05)
== END 2018-12-06 13:58 | disposition home or self-care (01) ==
LOC: ER 12:45
DX: S80.02XA Contusion of left knee, initial encounter (principal); S80.01XA Contusion of right knee, initial encounter; I11.9 Hypertensive heart disease without heart failure; J45.909 Unspecified asthma, uncomplicated; Z86.73 Personal history of transient ischemic attack (TIA), and cerebral infarction without residual deficits; Z90.49 Acquired absence of other specified parts of digestive tract; Z90.710 Acquired absence of both cervix and uterus; Z90.89 Acquired absence of other organs; W18.09XA Striking against other object with subsequent fall, initial encounter; Y93.89 Activity, other specified; Y92.89 Other specified places as the place of occurrence of the external cause; Y99.8 Other external cause status
CPT/HCPCS: 73562; 99284

== ENCOUNTER 2019-01-13 12:40 | Inpatient (IN) | payer OTHER, MEDICAID ==
[~2019-01-13] VITALS: Ht 175.3 cm; Wt 117.0 kg
[~2019-01-13 12:40] MED LIST changes: +INSU100I13 SQ; +LISI1TAB19 PO; -LISI1TAB5 PO; +POLY17PO29 PO
[2019-01-13] MEDS ORDERED: IV NORMAL SALINE 1000ML BAG 1,000 ML IV SCH (13:06)
--- NOTE | 2019-01-13 13:13 | EKG ---
[facility] [address] [place] [address] Test Date: 2019-01-13 Test Time: 12:50:47 Pat Name: BIB SANTIAGO Department: Room: Gender: F Match Up Person: : 1945 Requested By: LORIN HAYES Order Number: [id number] Reading MD: Measurements Intervals [place] Rate: 74 P: 49 MI: 184 QRS: -6 QRSD: 88 T: 26 QT: 396 QTc: 444 Interpretive Statements SINUS RHYTHM LEFT ATRIAL ABNORMALITY LEFTWARD AXIS ABNORMAL ECG No previous ECG available for comparison
--- NOTE | 2019-01-13 13:17 | PHYS DOC ---
Past Medical History Past Medical History: Arthritis, Asthma, Diabetes-Type II, Heart Disease, Hypertension, TIA, Other Additional Past Medical Histor: NEUROPATHY Past Surgical History: Cholecystectomy, Hysterectomy, Tonsillectomy Alcohol Use: None Drug Use: None Adult General Chief Complaint Chief Complaint: WEAKNESS/GENERALIZED HPI HPI Patient is a 73-year-old female, with multiple medical problems, who resents to the emergency department for evaluation. She states that for the past 2 days, s he has developed increasing weakness, to the point that she is unable to walk today. She states that she denies any new pain, other than her chronic back pain, and denies any recent injuries. She was unable to get out of bed to use the bathroom today. She has had problems like this in the past, and been in and out of the hospital for similar complaints over the past few months, with similar presentation. She denies any dysuria, shortness of breath, nausea, vomiting, diarrhea, chest pain, or shortness of breath that is new. Her only complaint is generalized and increasing weakness. There are no alleviating or exacerbating factors to her symptoms. Review of Systems Review of Systems Constitutional: Denies fever or chills [] Eyes: Denies change in visual acuity, redness, or eye pain [] HENT: Denies nasal congestion or sore throat [] Respiratory: Denies cough or shortness of breath [] Cardiovascular: The patient denies any shortness of breath, chest pain, palpitations, or orthopnea [] GI: Denies abdominal pain, nausea, vomiting, bloody stools or diarrhea [] : Denies dysuria or hematuria [] Musculoskeletal: Denies new back pain or joint pain. Reports chronic back pain. [] Integument: Denies rash or skin lesions [] Neurologic: Denies headache, focal weakness or sensory changes [] Endocrine: Denies polyuria or polydipsia [] All other systems were reviewed and found to be within normal limits, except as documented in this note. Current Medications Current Medications Current Medications Medications (Trade) Dose Ordered Sig/Janay Start Time Stop Time Status Last Admin Dose Admin Sodium Chloride 1,000 ml @ 100 mls/hr Q10H 01/13/19 13:06 01/13/19 23:05 01/13/19 13:35 100 MLS/HR Allergies Allergies Allergies Coded Allergies Type Severity Reaction Last Updated Verified No Known Drug Allergies 06/10/17 No Physical Exam Physical Exam PHYSICAL EXAM: CONSTITUTIONAL: Well developed, well nourished HEAD: normocephalic, atraumatic EENT: PERRL, EOMI. Conjunctivae normal color, sclerae non-icteric; moist mucous membranes. NECK: Supple, non-tender; no meningismus. LUNGS: Lungs CTA, breathing even and unlabored. Normal air movement. HEART: Regular rate and rhythm, no murmur CHEST: No deformity; non-tender ABDOMEN: The abdomen is soft, and non-tender, no masses or bruits. EXTREM: Normal ROM; no deformity, no calf tenderness. Normal pulses palpable in all extremities. There is mild bilateral pitting pedal edema. SKIN: No rash; no diaphoresis NEURO: Alert; normal speech and cognition; CN's grossly intact; strength grossly intact without focal deficit. BACK: No CVA TTP. Current Patient Data Vital Signs Vital Signs Date Time Temp Pulse Resp B/P (MAP) Pulse Ox O2 Delivery O2 Flow Rate FiO2 01/13/19 12:40 98.0 80 16 142/75 (97) 95 Room Air 98.0 Lab Values Laboratory Tests Test 01/13/19 13:20 01/13/19 13:31 01/13/19 14:35 White Blood Count 6.9 x10^3/uL (4.0-11.0) Red Blood Count 3.57 x10^6/uL (3.50-5.40) Hemoglobin 11.5 g/dL (12.0-15.5) L Hematocrit 34.5 % (36.0-47.0) L Mean Corpuscular Volume 97 fL (79-100) Mean Corpuscular Hemoglobin 32 pg (25-35) Mean Corpuscular Hemoglobin Concent 33 g/dL (31-37) Red Cell Distribution Width 13.1 % (11.5-14.5) Platelet Count 260 x10^3/uL (140-400) Neutrophils (%) (Auto) 57 % (31-73) Lymphocytes (%) (Auto) 30 % (24-48) Monocytes (%) (Auto) 10 % (0-9) H Eosinophils (%) (Auto) 2 % (0-3) Basophils (%) (Auto) 2 % (0-3) Neutrophils # (Auto) 3.9 x10^3/uL (1.8-7.7) Lymphocytes # (Auto) 2.0 x10^3/uL (1.0-4.8) Monocytes # (Auto) 0.7 x10^3/uL (0.0-1.1) Eosinophils # (Auto) 0.1 x10^3/uL (0.0-0.7) Basophils # (Auto) 0.1 x10^3/uL (0.0-0.2) Urine Collection Type U cath Urine Color Yellow Urine Clarity Clear Urine pH 5.5 Urine Specific [place] >=1.030 Urine Protein Negative mg/dL (NEG-TRACE) Urine Glucose (UA) Negative mg/dL (NEG) Urine Ketones (Stick) Negative mg/dL (NEG) Urine Blood Negative (NEG) Urine Nitrite Negative (NEG) Urine Bilirubin Small (NEG) Urine Urobilinogen Dipstick 1.0 mg/dL (0.2 mg/dL) Urine Leukocyte Esterase Negative (NEG) Urine RBC Occ /HPF (0-2) Urine WBC Occ /HPF (0-4) Urine Squamous Epithelial Cells Mod /LPF Urine Bacteria 0 /HPF (0-FEW) Urine Mucus Mod /LPF Prothrombin Time 13.3 SEC (11.7-14.0) Prothrombin Time INR 1.0 (0.8-1.1) Sodium Level 146 mmol/L (136-145) H Potassium Level 4.3 mmol/L (3.5-5.1) Chloride Level 108 mmol/L (98-107) H Carbon Dioxide Level 31 mmol/L (21-32) Anion Gap 7 (6-14) Blood Urea Nitrogen 16 mg/dL (7-20) Creatinine 1.0 mg/dL (0.6-1.0) Estimated GFR (Cockcroft-Gault) 65.6 BUN/Creatinine Ratio 16 (6-20) Glucose Level 151 mg/dL (70-99) H Calcium Level 9.9 mg/dL (8.5-10.1) Magnesium Level 1.9 mg/dL (1.8-2.4) Total Bilirubin 0.3 mg/dL (0.2-1.0) Aspartate Amino Transferase (AST) 21 U/L (15-37) Alanine Aminotransferase (ALT) 33 U/L (14-59) Alkaline Phosphatase 109 U/L (46-116) Troponin I Quantitative < 0.017 ng/mL (0.000-0.055) KJ-Hpo-D-Type Natriuretic Peptide 176 pg/mL (0-124) H Total Protein 6.9 g/dL (6.4-8.2) Albumin 3.4 g/dL (3.4-5.0) Albumin/Globulin Ratio 1.0 (1.0-1.7) Thyroid Stimulating Hormone (TSH) 0.712 uIU/mL (0.358-3.74) Free Thyroxine 0.98 ng/dL (0.76-1.46) Laboratory Tests 01/13/19 13:20 Laboratory Tests 01/13/19 14:35 EKG EKG Normal sinus rhythm at a rate of 75 beats for minute, left axis deviation, normal intervals. There are no acute ischemic ST/T changes.[] Radiology/Procedures Radiology/Procedures [PROCEDURE: PORTABLE CHEST 1V PORTABLE CHEST 1V History: Weakness. Lower extremity edema. Comparison: June 12, 2017. Findings: No consolidation or pleural effusion. Enlarged cardiac silhouette although portable technique accentuates cardiac size. Tortuous thoracic aorta. Impression: 1. No acute cardiopulmonary process. ] Course & Med Decision Making Course & Med Decision Making Pertinent Labs and Imaging studies reviewed. (See chart for details) []3:20 PM: The patient is not able to ambulate on her own, I do have concern a bout sending her home in her current state. I discussed the case with the hospitalist, who has graciously agreed to admit the patient for further evaluation and treatment. Dragon Disclaimer Dragon Disclaimer This electronic medical record was generated, in whole or in part, using a voice recognition dictation system. Departure Departure Impression: Primary Impression: Generalized weakness Disposition: ADMITTED INPATIENT Admitting Physician: CUBA Condition: STABLE Referrals: TOAN REYES (PCP) LORIN HAYES MD Jan 13, 2019 13:17
[2019-01-13 13:45] LABS: BILIRUBIN,URINE SMALL (NEG); CLARITY,URINE CLEAR; COLOR,URINE YELLOW; NITRITE,URINE NEGATIVE (NEG); PH,URINE 5.5; PROTEIN,URINE NEGATIVE (NEG-TRACE)
[2019-01-13 13:51] LABS: BACTERIA,URINE 0 /HPF (0-FEW); RBC,URINE OCC /HPF (0-2); SQUAMOUS EPITHELIAL CELL,UR MOD /LPF; WBC,URINE OCC /HPF (0-4)
--- NOTE | 2019-01-13 13:51 | RAD ---
PORTABLE CHEST 1V History: Weakness. Lower extremity edema. Comparison: June 12, 2017. Findings: No consolidation or pleural effusion. Enlarged cardiac silhouette although portable technique accentuates cardiac size. Tortuous thoracic aorta. Impression: 1. No acute cardiopulmonary process. Electronically signed by: Reyes Miller DO (01/13/2019 1:48 PM) [id number]
[2019-01-13 13:58] LABS: BASO # 0.1 x10^3/uL (0.0-0.2); BASO % 2 % (0-3); EOS # 0.1 x10^3/uL (0.0-0.7); EOS % 2 % (0-3); HEMATOCRIT 34.5 % (36.0-47.0); HEMOGLOBIN 11.5 g/dL (12.0-15.5); LYMPH % 30 % (24-48); MEAN CORPUSCULAR HEMOGLOBIN 32 pg (25-35); MEAN CORPUSCULAR HGB CONC 33 g/dL (31-37); MEAN CORPUSCULAR VOLUME 97 fL (79-100); MONO # 0.7 x10^3/uL (0.0-1.1); MONO % 10 % (0-9); NEUT # 3.9 x10^3/uL (1.8-7.7); NEUT % 57 % (31-73); PLATELET COUNT 260 x10^3/uL (140-400); RED BLOOD COUNT 3.57 x10^6/uL (3.50-5.40); RED CELL DISTRIBUTION WIDTH 13.1 % (11.5-14.5); WHITE BLOOD COUNT 6.9 x10^3/uL (4.0-11.0)
[2019-01-13 14:54] LABS: PROTHROMBIN TIME PATIENT 13.3 SEC (11.7-14.0)
[2019-01-13 15:05] LABS: CALCIUM 9.9 mg/dL (8.5-10.1); GFR 65.6; POTASSIUM 4.3 mmol/L (3.5-5.1)
[2019-01-13 15:11] LABS: ALBUMIN 3.4 g/dL (3.4-5.0); MAGNESIUM 1.9 mg/dL (1.8-2.4); TOTAL BILIRUBIN 0.3 mg/dL (0.2-1.0); TOTAL PROTEIN 6.9 g/dL (6.4-8.2)
[2019-01-13 15:18] LABS: FREE T4 0.98 ng/dL (0.76-1.46); THYROID STIM HORMONE (TSH) 0.712 uIU/mL (0.358-3.74)
[2019-01-13 17:35] VITALS: BP 129/75
--- NOTE | 2019-01-13 17:40 | NUR ---
pt admitted to room 576. oriented to room and call light. emergency contact, Jolanta, at bedside.
[2019-01-13] MEDS ORDERED: OXYC1TAB19 PO (18:58)
[2019-01-13 19:00] VITALS: BP 127/67
[2019-01-13] MEDS ORDERED: PROCHLORPERAZINE 5 MG TABLET. PO PRN (19:15)
--- NOTE | 2019-01-13 19:39 | RAD ---
Bilateral lower extremity venous duplex study 01/13/2019 Clinical History: Bilateral leg swelling and pain for one year. Technique: Using a combination of real time ultrasound imaging and color-flow and pulse Doppler imaging techniques along with graded compression and augmentation, duplex evaluation of the deep venous system of the both lower extremities was performed. Multiple images were obtained. Findings: There is no sonographic evidence of deep venous thrombosis involving the visualized deep venous structures of either lower extremity. Impression: Negative study. Electronically signed by: Rico Gillis MD (01/13/2019 7:36 PM) [facility]
[2019-01-13] MEDS: oxyCODONE/APAP 7.5/325 1 TAB TABLET PO PRN (19:54)
[2019-01-13] MEDS: ALBUTEROL SULFATE 2.5 MG/3 ML NEBU. INH PRN (20:04)
[2019-01-13] MEDS: LABETALOL HCL 200 MG TABLET PO SCH (20:51)
[2019-01-13] MEDS: ATORVASTATIN CALCIUM 10 MG TABLET. PO SCH (20:51)
[2019-01-13] MEDS: PREGABALIN 50 MG CAPSULE PO SCH (20:52)
[2019-01-13] MEDS: DICLOFENAC SODIUM 25 MG TABLET.DR PO SCH (20:52)
[2019-01-13] MEDS: cloNIDine HCL 0.3 MG TABLET PO SCH (20:52)
[2019-01-13] MEDS: AMITRIPTYLINE HCL 10 MG TABLET. PO SCH (20:52)
--- NOTE | 2019-01-13 22:38 | HP ---
ADMIT DATE: 01/13/2019 CHIEF COMPLAINT: Weakness. HISTORY OF PRESENT ILLNESS: The patient is a pleasant elderly female who presents with weakness. It has been occurring for several months. In fact, we have had her at detention in November and in December, but her daughter feels like she is going backwards. She just keeps getting weaker. The patient also has a left leg that is swollen. I have discussed the case with ER physician. We are going to admit the patient and probably get her back to detention and/or long-term care placement. PAST MEDICAL HISTORY: Arthritis, asthma, diabetes, coronary artery disease, hypertension, hyperlipidemia, TIAs, neuropathy, cholecystectomy, hysterectomy and tonsillectomy. ALLERGIES: None. FAMILY HISTORY: Diabetes. SOCIAL HISTORY: She does not drink, smoke or take drugs. MEDICATIONS: Reviewed, please refer to the MRAD. REVIEW OF SYSTEMS: GENERAL: No history of weight change, weakness or fevers. SKIN: No bruising, hair changes or rashes. EYES: No blurred, double or loss of vision. NOSE AND THROAT: No history of nosebleeds, hoarseness or sore throat. HEART: No history of palpitations, chest pain or shortness of breath on exertion. LUNGS: Denies cough, hemoptysis, wheezing or shortness of breath. GASTROINTESTINAL: Denies changes in appetite, nausea, vomiting, diarrhea or constipation. GENITOURINARY: No history of frequency, urgency, hesitancy or nocturia. NEUROLOGIC: She complains of weakness. PSYCHIATRIC: No history of panic, anxiety or depression. ENDOCRINE: No history of heat or cold intolerance, polyuria or polydipsia. EXTREMITIES: Denies muscle weakness, joint pain, pain on walking or stiffness. PHYSICAL EXAMINATION: VITALS: Within normal limits and are stable. GENERAL: No apparent distress. Alert and oriented. HEENT: Head is normocephalic, atraumatic, pupils were equally round and reactive to light and accommodation. NECK: Supple, no JVD, no thyromegaly was noted. LUNGS: Clear to auscultation in all lung rabago without rhonchi or wheezing. HEART: RRR, S1, S2 present. Peripheral pulses intact, no obvious murmurs were noted. ABDOMEN: Soft, nontender. Positive bowel sounds no organomegaly, normal bowel sounds. EXTREMITIES: Without any cyanosis, clubbing, or edema. Pedal pulses intact, Homans sign is negative. NEUROLOGIC: She is very weak. PSYCHIATRIC: Normal affect, normal mood. Stable. SKIN: No ulcerations or rashes, good skin turgor, no jaundice. VASCULAR: Good capillary refill, neurovascular bundle appears to be intact. MUSCULOSKELETAL: She complains of leg pain. RADIOLOGICAL DATA: Lower extremity Doppler is pending. Chest x-ray was negative. ASSESSMENT AND PLAN: Weakness with incidental finding of a swollen left leg. Suspect she has early failure to thrive. We are going to admit her and consult social and political studies professor for possible long-term care placement or detention placement. Await lower extremity Doppler report. Home meds, DVT prophylaxis, PT, OT, frequent labs and consult Neurology. JAMILA ACUNA DO DR: TYRESE/manju JOB#: [id number] / [id number]
[2019-01-13 23:00] VITALS: BP 142/75
[2019-01-14] MEDS: oxyCODONE/APAP 7.5/325 1 TAB TABLET PO PRN ×3 (02:57→23:33)
[2019-01-14 03:00] VITALS: BP 119/67
[2019-01-14] MEDS: ALBUTEROL SULFATE 2.5 MG/3 ML NEBU. INH PRN (03:21)
[2019-01-14 07:00] VITALS: BP 120/60
[2019-01-14] MEDS: GLIMEPIRIDE 2 MG TABLET. PO SCH (08:50)
[2019-01-14] MEDS: cloNIDine HCL 0.3 MG TABLET PO SCH ×2 (08:52→21:12)
[2019-01-14] MEDS: PREGABALIN 50 MG CAPSULE PO SCH ×2 (08:54→21:13)
[2019-01-14] MEDS: DICLOFENAC SODIUM 25 MG TABLET.DR PO SCH ×2 (08:54→21:13)
[2019-01-14] MEDS: LABETALOL HCL 200 MG TABLET PO SCH ×2 (08:56→21:12)
[2019-01-14] MEDS: POLYETHYLENE GLYCOL 3350 17 GM PACKET. PO SCH (08:56)
--- NOTE | 2019-01-14 10:52 | PDOC ---
PROGRESS NOTES History of Present Illness History of Present Illness ASSESSMENT AND PLAN: Weakness with incidental finding of a swollen left leg. no sonographic evidence of deep venous thrombosis involving the visualized deep venous structures of either lower extremity. failure to thrive. MILD HYPERNATREMIA, VOLUME DEPLETED admit consult social work lecturer for possible long-term care placement or fpc Await lower extremity Doppler report. Home meds, DVT prophylaxis, PT, OT, frequent labs consult Neurology. 29 MIN PT EXAM, CHART REVIEW, > 50% OF TIME SPENT WITH EXAM, CHART REVIEW , PT CARE COORDINATION Vitals Vitals Vital Signs Date Time Temp Pulse Resp B/P (MAP) Pulse Ox O2 Delivery O2 Flow Rate FiO2 01/14/19 09:05 Room Air 01/14/19 09:05 63 120/60 01/14/19 07:00 98.1 18 94 98.1 Physical Exam Physical Exam GENERAL: No apparent distress. Alert and oriented. HEENT: Head is normocephalic, atraumatic, pupils were equally round and reactive to light and accommodation. NECK: Supple, no JVD, no thyromegaly was noted. LUNGS: Clear to auscultation in all lung rabago without rhonchi or wheezing. HEART: RRR, S1, S2 present. Peripheral pulses intact, no obvious murmurs were noted. ABDOMEN: Soft, nontender. Positive bowel sounds no organomegaly, normal bowel sounds. EXTREMITIES: Without any cyanosis, clubbing, or edema. Pedal pulses intact, Homans sign is negative. NEUROLOGIC: She is very weak. PSYCHIATRIC: Normal affect, normal mood. Stable. SKIN: No ulcerations or rashes, good skin turgor, no jaundice. VASCULAR: Good capillary refill, neurovascular bundle appears to be intact. MUSCULOSKELETAL: She complains of leg pain. General: Oriented X3, Cooperative, No acute distress Heart: Regular rate Lungs: Clear Abdomen: Normal bowel sounds, Soft Extremities: No cyanosis, No edema Labs LABS PORTABLE CHEST 1V History: Weakness. Lower extremity edema. Comparison: June 12, 2017. Findings: No consolidation or pleural effusion. Enlarged cardiac silhouette although portable technique accentuates cardiac size. Tortuous thoracic aorta. Impression: 1. No acute cardiopulmonary process. Electronically signed by: Reyes Miller DO (01/13/2019 1:48 PM) [facility] Bilateral lower extremity venous duplex study 01/13/2019 Clinical History: Bilateral leg swelling and pain for one year. Technique: Using a combination of real time ultrasound imaging and color-flow and pulse Doppler imaging techniques along with graded compression and augmentation, duplex evaluation of the deep venous system of the both lower extremities was performed. Multiple images were obtained. Findings: There is no sonographic evidence of deep venous thrombosis involving the visualized deep venous structures of either lower extremity. Impression: Negative study. Electronically signed by: Rico Gillis MD (01/13/2019 7:36 PM) [facility] Laboratory Tests Test 01/13/19 13:20 01/13/19 13:31 01/13/19 14:35 White Blood Count 6.9 x10^3/uL (4.0-11.0) Red Blood Count 3.57 x10^6/uL (3.50-5.40) Hemoglobin 11.5 g/dL (12.0-15.5) Hematocrit 34.5 % (36.0-47.0) Mean Corpuscular Volume 97 fL (79-100) Mean Corpuscular Hemoglobin 32 pg (25-35) Mean Corpuscular Hemoglobin Concent 33 g/dL (31-37) Red Cell Distribution Width 13.1 % (11.5-14.5) Platelet Count 260 x10^3/uL (140-400) Neutrophils (%) (Auto) 57 % (31-73) Lymphocytes (%) (Auto) 30 % (24-48) Monocytes (%) (Auto) 10 % (0-9) Eosinophils (%) (Auto) 2 % (0-3) Basophils (%) (Auto) 2 % (0-3) Neutrophils # (Auto) 3.9 x10^3/uL (1.8-7.7) Lymphocytes # (Auto) 2.0 x10^3/uL (1.0-4.8) Monocytes # (Auto) 0.7 x10^3/uL (0.0-1.1) Eosinophils # (Auto) 0.1 x10^3/uL (0.0-0.7) Basophils # (Auto) 0.1 x10^3/uL (0.0-0.2) Urine Collection Type U cath Urine Color Yellow Urine Clarity Clear Urine pH 5.5 Urine Specific [place] >=1.030 Urine Protein Negative mg/dL (NEG-TRACE) Urine Glucose (UA) Negative mg/dL (NEG) Urine Ketones (Stick) Negative mg/dL (NEG) Urine Blood Negative (NEG) Urine Nitrite Negative (NEG) Urine Bilirubin Small (NEG) Urine Urobilinogen Dipstick 1.0 mg/dL (0.2 mg/dL) Urine Leukocyte Esterase Negative (NEG) Urine RBC Occ /HPF (0-2) Urine WBC Occ /HPF (0-4) Urine Squamous Epithelial Cells Mod /LPF Urine Bacteria 0 /HPF (0-FEW) Urine Mucus Mod /LPF Prothrombin Time 13.3 SEC (11.7-14.0) Prothromb Time International Ratio 1.0 (0.8-1.1) Sodium Level 146 mmol/L (136-145) Potassium Level 4.3 mmol/L (3.5-5.1) Chloride Level 108 mmol/L (98-107) Carbon Dioxide Level 31 mmol/L (21-32) Anion Gap 7 (6-14) Blood Urea Nitrogen 16 mg/dL (7-20) Creatinine 1.0 mg/dL (0.6-1.0) Estimated GFR (Cockcroft-Gault) 65.6 BUN/Creatinine Ratio 16 (6-20) Glucose Level 151 mg/dL (70-99) Calcium Level 9.9 mg/dL (8.5-10.1) Magnesium Level 1.9 mg/dL (1.8-2.4) Total Bilirubin 0.3 mg/dL (0.2-1.0) Aspartate Amino Transf (AST/SGOT) 21 U/L (15-37) Alanine Aminotransferase (ALT/SGPT) 33 U/L (14-59) Alkaline Phosphatase 109 U/L (46-116) Troponin I Quantitative < 0.017 ng/mL (0.000-0.055) MW-Ptc-F-Type Natriuretic Peptide 176 pg/mL (0-124) Total Protein 6.9 g/dL (6.4-8.2) Albumin 3.4 g/dL (3.4-5.0) Albumin/Globulin Ratio 1.0 (1.0-1.7) Thyroid Stimulating Hormone (TSH) 0.712 uIU/mL (0.358-3.74) Free Thyroxine 0.98 ng/dL (0.76-1.46) Assessment and Plan Assessmemt and Plan Problems Medical Problems: (1) Generalized weakness Status: Acute Comment Review of Relevant I have reviewed the following items jorge luis (where applicable) has been applied. Labs Laboratory Tests Test 01/13/19 13:20 01/13/19 13:31 01/13/19 14:35 White Blood Count 6.9 x10^3/uL (4.0-11.0) Red Blood Count 3.57 x10^6/uL (3.50-5.40) Hemoglobin 11.5 g/dL (12.0-15.5) Hematocrit 34.5 % (36.0-47.0) Mean Corpuscular Volume 97 fL (79-100) Mean Corpuscular Hemoglobin 32 pg (25-35) Mean Corpuscular Hemoglobin Concent 33 g/dL (31-37) Red Cell Distribution Width 13.1 % (11.5-14.5) Platelet Count 260 x10^3/uL (140-400) Neutrophils (%) (Auto) 57 % (31-73) Lymphocytes (%) (Auto) 30 % (24-48) Monocytes (%) (Auto) 10 % (0-9) Eosinophils (%) (Auto) 2 % (0-3) Basophils (%) (Auto) 2 % (0-3) Neutrophils # (Auto) 3.9 x10^3/uL (1.8-7.7) Lymphocytes # (Auto) 2.0 x10^3/uL (1.0-4.8) Monocytes # (Auto) 0.7 x10^3/uL (0.0-1.1) Eosinophils # (Auto) 0.1 x10^3/uL (0.0-0.7) Basophils # (Auto) 0.1 x10^3/uL (0.0-0.2) Urine Collection Type U cath Urine Color Yellow Urine Clarity Clear Urine pH 5.5 Urine Specific [place] >=1.030 Urine Protein Negative mg/dL (NEG-TRACE) Urine Glucose (UA) Negative mg/dL (NEG) Urine Ketones (Stick) Negative mg/dL (NEG) Urine Blood Negative (NEG) Urine Nitrite Negative (NEG) Urine Bilirubin Small (NEG) Urine Urobilinogen Dipstick 1.0 mg/dL (0.2 mg/dL) Urine Leukocyte Esterase Negative (NEG) Urine RBC Occ /HPF (0-2) Urine WBC Occ /HPF (0-4) Urine Squamous Epithelial Cells Mod /LPF Urine Bacteria 0 /HPF (0-FEW) Urine Mucus Mod /LPF Prothrombin Time 13.3 SEC (11.7-14.0) Prothromb Time International Ratio 1.0 (0.8-1.1) Sodium Level 146 mmol/L (136-145) Potassium Level 4.3 mmol/L (3.5-5.1) Chloride Level 108 mmol/L (98-107) Carbon Dioxide Level 31 mmol/L (21-32) Anion Gap 7 (6-14) Blood Urea Nitrogen 16 mg/dL (7-20) Creatinine 1.0 mg/dL (0.6-1.0) Estimated GFR (Cockcroft-Gault) 65.6 BUN/Creatinine Ratio 16 (6-20) Glucose Level 151 mg/dL (70-99) Calcium Level 9.9 mg/dL (8.5-10.1) Magnesium Level 1.9 mg/dL (1.8-2.4) Total Bilirubin 0.3 mg/dL (0.2-1.0) Aspartate Amino Transf (AST/SGOT) 21 U/L (15-37) Alanine Aminotransferase (ALT/SGPT) 33 U/L (14-59) Alkaline Phosphatase 109 U/L (46-116) Troponin I Quantitative < 0.017 ng/mL (0.000-0.055) JH-Yef-Z-Type Natriuretic Peptide 176 pg/mL (0-124) Total Protein 6.9 g/dL (6.4-8.2) Albumin 3.4 g/dL (3.4-5.0) Albumin/Globulin Ratio 1.0 (1.0-1.7) Thyroid Stimulating Hormone (TSH) 0.712 uIU/mL (0.358-3.74) Free Thyroxine 0.98 ng/dL (0.76-1.46) Laboratory Tests Test 01/13/19 13:20 01/13/19 13:31 01/13/19 14:35 White Blood Count 6.9 x10^3/uL (4.0-11.0) Red Blood Count 3.57 x10^6/uL (3.50-5.40) Hemoglobin 11.5 g/dL (12.0-15.5) Hematocrit 34.5 % (36.0-47.0) Mean Corpuscular Volume 97 fL (79-100) Mean Corpuscular Hemoglobin 32 pg (25-35) Mean Corpuscular Hemoglobin Concent 33 g/dL (31-37) Red Cell Distribution Width 13.1 % (11.5-14.5) Platelet Count 260 x10^3/uL (140-400) Neutrophils (%) (Auto) 57 % (31-73) Lymphocytes (%) (Auto) 30 % (24-48) Monocytes (%) (Auto) 10 % (0-9) Eosinophils (%) (Auto) 2 % (0-3) Basophils (%) (Auto) 2 % (0-3) Neutrophils # (Auto) 3.9 x10^3/uL (1.8-7.7) Lymphocytes # (Auto) 2.0 x10^3/uL (1.0-4.8) Monocytes # (Auto) 0.7 x10^3/uL (0.0-1.1) Eosinophils # (Auto) 0.1 x10^3/uL (0.0-0.7) Basophils # (Auto) 0.1 x10^3/uL (0.0-0.2) Urine Collection Type U cath Urine Color Yellow Urine Clarity Clear Urine pH 5.5 Urine Specific [place] >=1.030 Urine Protein Negative mg/dL (NEG-TRACE) Urine Glucose (UA) Negative mg/dL (NEG) Urine Ketones (Stick) Negative mg/dL (NEG) Urine Blood Negative (NEG) Urine Nitrite Negative (NEG) Urine Bilirubin Small (NEG) Urine Urobilinogen Dipstick 1.0 mg/dL (0.2 mg/dL) Urine Leukocyte Esterase Negative (NEG) Urine RBC Occ /HPF (0-2) Urine WBC Occ /HPF (0-4) Urine Squamous Epithelial Cells Mod /LPF Urine Bacteria 0 /HPF (0-FEW) Urine Mucus Mod /LPF Prothrombin Time 13.3 SEC (11.7-14.0) Prothromb Time International Ratio 1.0 (0.8-1.1) Sodium Level 146 mmol/L (136-145) Potassium Level 4.3 mmol/L (3.5-5.1) Chloride Level 108 mmol/L (98-107) Carbon Dioxide Level 31 mmol/L (21-32) Anion Gap 7 (6-14) Blood Urea Nitrogen 16 mg/dL (7-20) Creatinine 1.0 mg/dL (0.6-1.0) Estimated GFR (Cockcroft-Gault) 65.6 BUN/Creatinine Ratio 16 (6-20) Glucose Level 151 mg/dL (70-99) Calcium Level 9.9 mg/dL (8.5-10.1) Magnesium Level 1.9 mg/dL (1.8-2.4) Total Bilirubin 0.3 mg/dL (0.2-1.0) Aspartate Amino Transf (AST/SGOT) 21 U/L (15-37) Alanine Aminotransferase (ALT/SGPT) 33 U/L (14-59) Alkaline Phosphatase 109 U/L (46-116) Troponin I Quantitative < 0.017 ng/mL (0.000-0.055) DC-Div-E-Type Natriuretic Peptide 176 pg/mL (0-124) Total Protein 6.9 g/dL (6.4-8.2) Albumin 3.4 g/dL (3.4-5.0) Albumin/Globulin Ratio 1.0 (1.0-1.7) Thyroid Stimulating Hormone (TSH) 0.712 uIU/mL (0.358-3.74) Free Thyroxine 0.98 ng/dL (0.76-1.46) Medications Current Medications Sodium Chloride 1,000 ml @ 100 mls/hr Q10H IV Last administered on 01/13/19at 13:35; Start 01/13/19 at 13:06; Stop 01/13/19 at 23:05; Status DC Albuterol Sulfate (Ventolin Neb Soln) 2.5 mg PRN Q6HRS PRN INH SHORTNESS OF BREATH Last administered on 01/14/19at 03:21; Start 01/13/19 at 19:00 Amitriptyline HCl (Elavil) 60 mg QHS PO Last administered on 01/13/19at 20:53; Start 01/13/19 at 21:00 Clonidine HCl (Catapres) 0.3 mg BID PO Last administered on 01/14/19at 09:05; Start 01/13/19 at 21:00 Labetalol HCl (Trandate) 200 mg BID PO Last administered on 01/14/19 09:05; Start 01/13/19 at 21:00 Oxycodone/ Acetaminophen (Percocet 7.5/ 325) 2 tab PRN TID PRN PO SEVERE PAIN Last administered on 01/14/19 09:05; Start 01/13/19 at 19:00 Polyethylene Glycol (miraLAX PACKET) 17 gm DAILY PO Last administered on 01/14/19 09:05; Start 01/14/19 at 09:00 Diclofenac Sodium (Voltaren) 75 mg BID PO Last administered on 01/14/19 09:05; Start 01/13/19 at 21:00 Glimepiride (Amaryl) 4 mg DAILYWBKFT PO Last administered on 01/14/19 09:05; Start 01/14/19 at 08:00 Atorvastatin Calcium (Lipitor) 10 mg QHS PO Last administered on 01/13/19at 20:52; Start 01/13/19 at 21:00 Pregabalin (Lyrica) 100 mg BID PO Last administered on 01/14/19 09:05; Start 01/13/19 at 21:00 Prochlorperazine Maleate (Compazine) 10 mg PRN Q8HRS PRN PO NAUSEA/VOMITING; Start 01/13/19 at 19:15 Active Scripts Active Miralax (Polyethylene Glycol 3350) 17 Gm Powd.pack 1 Packet PO DAILY Lyrica (Pregabalin) 100 Mg Capsule 1 Cap PO BID 30 Days Reported Percocet 7.5-325 Mg Tablet (Oxycodone/Acetaminophen) 1 Each Tablet 2 Tab PO PRN TID PRN Proair Hfa Inhaler (Albuterol Sulfate) 8.5 Gm Hfa.aer.ad 2 Puff INH PRN Q6HRS PRN Amitriptyline Hcl 10 Mg Tablet 6 Tab PO QHS Glimepiride 4 Mg Tablet 1 Tab PO DAILYWBKFT Compazine (Prochlorperazine Maleate) 10 Mg Tablet 10 Mg PO PRN Q8HRS PRN Diclofenac Sodium 75 Mg Tablet.dr 1 Tab PO BID Pravastatin Sodium 40 Mg Tablet 1 Tab PO QHS Clonidine Hcl 0.3 Mg Tablet 1 Tab PO BID Labetalol Hcl 200 Mg Tablet 1 Tab PO BID Vitals/I & O Vital Sign - Last 24 Hours 01/13/19 01/13/19 01/13/19 01/13/19 12:40 12:49 13:23 13:47 Temp 98.0 98.0 Pulse 80 74 76 75 Resp 16 15 22 21 B/P (MAP) 142/75 (97) Pulse Ox 95 89 94 O2 Delivery Room Air 01/13/19 01/13/19 01/13/19 01/13/19 14:17 14:47 15:17 15:47 Pulse 81 75 77 79 Resp 16 18 11 24 Pulse Ox 92 93 92 97 01/13/19 01/13/19 01/13/19 01/13/19 17:35 18:28 19:00 19:54 Temp 98.7 98.2 98.7 98.2 Pulse 81 82 Resp 16 18 B/P (MAP) 129/75 (93) 127/67 (87) Pulse Ox 98 95 O2 Delivery Room Air Room Air Room Air Room Air 01/13/19 01/13/19 01/13/19 01/13/19 20:06 20:13 20:52 20:52 Pulse 82 82 B/P (MAP) 127/67 127/67 Pulse Ox 98 O2 Delivery Room Air Room Air 01/13/19 01/13/19 01/14/19 01/14/19 20:56 23:00 02:57 03:00 Temp 98.4 98.4 98.4 98.4 Pulse 85 71 Resp 18 18 B/P (MAP) 142/75 (97) 119/67 (84) Pulse Ox 92 95 O2 Delivery Room Air Room Air Room Air Room Air 01/14/19 01/14/19 01/14/19 01/14/19 03:19 04:28 07:00 09:05 Temp 98.1 98.1 Pulse 63 63 Resp 18 B/P (MAP) 120/60 (80) 120/60 Pulse Ox 94 O2 Delivery Room Air Room Air Room Air 01/14/19 01/14/19 09:05 09:05 Pulse 63 B/P (MAP) 120/60 O2 Delivery Room Air BLAYNE MILES MD Jan 14, 2019 10:52
[2019-01-14 11:00] VITALS: BP 115/61
[2019-01-14] MEDS ORDERED: IV 1/2 NORMAL SALINE 1,000 ML IV ONE (12:30)
[2019-01-14 15:00] VITALS: BP 120/70
--- NOTE | 2019-01-14 15:10 | NUR ---
Functional screen complete. Pt with limitations in functional mobility, ADLs and IADLs and would benefit from PT/OT assessment. Please write PT/OT eval and treat orders if you agree. Addendum: 01/14/19 at 1510 by ABEL VELASQUEZ PT Amended: Links added.
[2019-01-14 19:00] VITALS: BP 126/66
[2019-01-14] MEDS: ATORVASTATIN CALCIUM 10 MG TABLET. PO SCH (21:12)
[2019-01-14] MEDS: AMITRIPTYLINE HCL 10 MG TABLET. PO SCH (21:13)
[2019-01-14 23:00] VITALS: BP 126/81
[2019-01-15 03:00] VITALS: BP 134/44
[2019-01-15 05:36] LABS: BASO % 1 % (0-3); EOS # 0.2 x10^3/uL (0.0-0.7); EOS % 2 % (0-3); HEMATOCRIT 36.4 % (36.0-47.0); HEMOGLOBIN 12.1 g/dL (12.0-15.5); LYMPH # 2.8 x10^3/uL (1.0-4.8); LYMPH % 41 % (24-48); MEAN CORPUSCULAR HEMOGLOBIN 32 pg (25-35); MEAN CORPUSCULAR HGB CONC 33 g/dL (31-37); MEAN CORPUSCULAR VOLUME 97 fL (79-100); MONO # 0.6 x10^3/uL (0.0-1.1); MONO % 8 % (0-9); NEUT # 3.3 x10^3/uL (1.8-7.7); NEUT % 48 % (31-73); PLATELET COUNT 225 x10^3/uL (140-400); RED BLOOD COUNT 3.77 x10^6/uL (3.50-5.40); RED CELL DISTRIBUTION WIDTH 13.4 % (11.5-14.5); WHITE BLOOD COUNT 6.9 x10^3/uL (4.0-11.0)
[2019-01-15 05:56] LABS: CALCIUM 10.4 mg/dL (8.5-10.1); CREATININE 1.1 mg/dL (0.6-1.0); GFR 58.7; POTASSIUM 4.8 mmol/L (3.5-5.1)
[2019-01-15 07:00] VITALS: BP 140/76
--- NOTE | 2019-01-15 08:01 | PDOC ---
PROGRESS NOTES History of Present Illness History of Present Illness ASSESSMENT AND PLAN: Weakness with incidental finding of a swollen left leg. no sonographic evidence of deep venous thrombosis involving the visualized deep venous structures of either lower extremity. failure to thrive. 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 admit consult psychiatric social worker for possible long-term care placement or half-way Await lower extremity Doppler report. Home meds, DVT prophylaxis, PT, OT, frequent labs consult Neurology. iv fluid support ct head Pt with limitations in functional mobility, ADLs and IADLs and would benefit from PT/OT 29 MIN PT EXAM, CHART REVIEW, > 50% OF TIME SPENT WITH EXAM, CHART REVIEW , PT CARE COORDINATION Vitals Vitals Vital Signs Date Time Temp Pulse Resp B/P (MAP) Pulse Ox O2 Delivery O2 Flow Rate FiO2 01/15/19 03:00 98.2 61 18 134/44 (74) 96 Room Air 98.2 Physical Exam Physical Exam GENERAL: No apparent distress. Alert and oriented. HEENT: Head is normocephalic, atraumatic, pupils were equally round and reactive to light and accommodation. NECK: Supple, no JVD, no thyromegaly was noted. LUNGS: Clear to auscultation in all lung rabago without rhonchi or wheezing. HEART: RRR, S1, S2 present. Peripheral pulses intact, no obvious murmurs were noted. ABDOMEN: Soft, nontender. Positive bowel sounds no organomegaly, normal bowel sounds. EXTREMITIES: Without any cyanosis, clubbing, or edema. Pedal pulses intact, Homans sign is negative. NEUROLOGIC: She is very weak. PSYCHIATRIC: Normal affect, normal mood. Stable. SKIN: No ulcerations or rashes, good skin turgor, no jaundice. VASCULAR: Good capillary refill, neurovascular bundle appears to be intact. MUSCULOSKELETAL: General: Alert, Oriented X3, Cooperative, No acute distress Heart: Regular rate, Normal S1 Lungs: Clear Abdomen: Normal bowel sounds, Soft Extremities: No cyanosis, No edema Skin: No significant lesion Labs LABS TECHNIQUE: Computed tomographic images of the lumbar spine were obtained without contrast. Multiplanar reformatting was performed. *One or more of the following individualized dose reduction techniques were utilized for this examination: 1. Automated exposure control. 2. Adjustment of the mA and/or kV according to patient size. 3. Use of iterative reconstruction technique. COMPARISON: Radiographs obtained on the same date. FINDINGS: There is lumbar hyperlordosis. There is a transitional S1 segment with prematurity S1-S2 disc. 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 There is grade 1 anterolisthesis of and L5 on S1, measuring 7 mm. There is 3 mm retrolisthesis of L2 on L3. There is mild lumbar scoliosis. There is degenerative endplate remodeling at all levels. There are several small endplate Schmorl's nodes. There is a vacuum phenomenon within the lower thoracic and lumbar disc spaces. There is suspected bone demineralization. There is no suspicious osseous lesion. There are few incidental osseous hemangiomas. There is bilateral posterior dependent and basilar atelectasis. There is a simple appearing cyst within the upper pole the right kidney measuring 4.5 cm. The gallbladder is surgically absent. At L1-L2, there is a disc bulge. There is mild left facet arthropathy. There is mild bilateral foraminal stenosis. At L2-L3, there is a disc bulge and endplate remodeling. There is mild retrolisthesis. There is mild right facet arthropathy. There is moderate right and mild left foraminal stenosis. There is mild central canal stenosis. At L3-L4, there is a disc bulge and endplate remodeling. There is moderate right and mild left facet arthropathy. There is hypertrophy of the ligamentum flavum. There is moderate right greater than left foraminal stenosis. There is moderate central canal stenosis. At L4-L5, there is a disc bulge. There is mild right and moderate to severe left facet arthropathy. There is moderate to severe right foraminal stenosis. There is mild central canal stenosis. At L5-S1, there is a disc bulge and endplate osteophytosis. There is severe bilateral facet arthropathy. There is grade 1 anterolisthesis. There is severe bilateral foraminal stenosis. There is moderate central canal stenosis. IMPRESSION: 1. Multilevel degenerative change throughout the lumbar spine and lower thoracic spine, resulting in stenosis at the aforementioned levels. 2. Grade 1 anterolisthesis of L5 on S1 and retrolisthesis of L2 on L3. 3. Mild scoliosis. Electronically signed by: Pina Huffman MD (11/30/2018 3:59 PM) [place] [id number] Laboratory Tests Test 01/15/19 04:50 White Blood Count 6.9 x10^3/uL (4.0-11.0) Red Blood Count 3.77 x10^6/uL (3.50-5.40) Hemoglobin 12.1 g/dL (12.0-15.5) Hematocrit 36.4 % (36.0-47.0) Mean Corpuscular Volume 97 fL (79-100) Mean Corpuscular Hemoglobin 32 pg (25-35) Mean Corpuscular Hemoglobin Concent 33 g/dL (31-37) Red Cell Distribution Width 13.4 % (11.5-14.5) Platelet Count 225 x10^3/uL (140-400) Neutrophils (%) (Auto) 48 % (31-73) Lymphocytes (%) (Auto) 41 % (24-48) Monocytes (%) (Auto) 8 % (0-9) Eosinophils (%) (Auto) 2 % (0-3) Basophils (%) (Auto) 1 % (0-3) Neutrophils # (Auto) 3.3 x10^3/uL (1.8-7.7) Lymphocytes # (Auto) 2.8 x10^3/uL (1.0-4.8) Monocytes # (Auto) 0.6 x10^3/uL (0.0-1.1) Eosinophils # (Auto) 0.2 x10^3/uL (0.0-0.7) Basophils # (Auto) 0.0 x10^3/uL (0.0-0.2) Sodium Level 142 mmol/L (136-145) Potassium Level 4.8 mmol/L (3.5-5.1) Chloride Level 107 mmol/L (98-107) Carbon Dioxide Level 30 mmol/L (21-32) Anion Gap 5 (6-14) Blood Urea Nitrogen 14 mg/dL (7-20) Creatinine 1.1 mg/dL (0.6-1.0) Estimated GFR (Cockcroft-Gault) 58.7 Glucose Level 172 mg/dL (70-99) Calcium Level 10.4 mg/dL (8.5-10.1) Assessment and Plan Assessmemt and Plan Problems Medical Problems: (1) Generalized weakness Status: Acute Comment Review of Relevant I have reviewed the following items jorge luis (where applicable) has been applied. Labs Laboratory Tests Test 01/13/19 13:20 01/13/19 13:31 01/13/19 14:35 01/15/19 04:50 White Blood Count 6.9 x10^3/uL (4.0-11.0) 6.9 x10^3/uL (4.0-11.0) Red Blood Count 3.57 x10^6/uL (3.50-5.40) 3.77 x10^6/uL (3.50-5.40) Hemoglobin 11.5 g/dL (12.0-15.5) 12.1 g/dL (12.0-15.5) Hematocrit 34.5 % (36.0-47.0) 36.4 % (36.0-47.0) Mean Corpuscular Volume 97 fL (79-100) 97 fL (79-100) Mean Corpuscular Hemoglobin 32 pg (25-35) 32 pg (25-35) Mean Corpuscular Hemoglobin Concent 33 g/dL (31-37) 33 g/dL (31-37) Red Cell Distribution Width 13.1 % (11.5-14.5) 13.4 % (11.5-14.5) Platelet Count 260 x10^3/uL (140-400) 225 x10^3/uL (140-400) Neutrophils (%) (Auto) 57 % (31-73) 48 % (31-73) Lymphocytes (%) (Auto) 30 % (24-48) 41 % (24-48) Monocytes (%) (Auto) 10 % (0-9) 8 % (0-9) Eosinophils (%) (Auto) 2 % (0-3) 2 % (0-3) Basophils (%) (Auto) 2 % (0-3) 1 % (0-3) Neutrophils # (Auto) 3.9 x10^3/uL (1.8-7.7) 3.3 x10^3/uL (1.8-7.7) Lymphocytes # (Auto) 2.0 x10^3/uL (1.0-4.8) 2.8 x10^3/uL (1.0-4.8) Monocytes # (Auto) 0.7 x10^3/uL (0.0-1.1) 0.6 x10^3/uL (0.0-1.1) Eosinophils # (Auto) 0.1 x10^3/uL (0.0-0.7) 0.2 x10^3/uL (0.0-0.7) Basophils # (Auto) 0.1 x10^3/uL (0.0-0.2) 0.0 x10^3/uL (0.0-0.2) Urine Collection Type U cath Urine Color Yellow Urine Clarity Clear Urine pH 5.5 Urine Specific [place] >=1.030 Urine Protein Negative mg/dL (NEG-TRACE) Urine Glucose (UA) Negative mg/dL (NEG) Urine Ketones (Stick) Negative mg/dL (NEG) Urine Blood Negative (NEG) Urine Nitrite Negative (NEG) Urine Bilirubin Small (NEG) Urine Urobilinogen Dipstick 1.0 mg/dL (0.2 mg/dL) Urine Leukocyte Esterase Negative (NEG) Urine RBC Occ /HPF (0-2) Urine WBC Occ /HPF (0-4) Urine Squamous Epithelial Cells Mod /LPF Urine Bacteria 0 /HPF (0-FEW) Urine Mucus Mod /LPF Prothrombin Time 13.3 SEC (11.7-14.0) Prothromb Time International Ratio 1.0 (0.8-1.1) Sodium Level 146 mmol/L (136-145) 142 mmol/L (136-145) Potassium Level 4.3 mmol/L (3.5-5.1) 4.8 mmol/L (3.5-5.1) Chloride Level 108 mmol/L (98-107) 107 mmol/L (98-107) Carbon Dioxide Level 31 mmol/L (21-32) 30 mmol/L (21-32) Anion Gap 7 (6-14) 5 (6-14) Blood Urea Nitrogen 16 mg/dL (7-20) 14 mg/dL (7-20) Creatinine 1.0 mg/dL (0.6-1.0) 1.1 mg/dL (0.6-1.0) Estimated GFR (Cockcroft-Gault) 65.6 58.7 BUN/Creatinine Ratio 16 (6-20) Glucose Level 151 mg/dL (70-99) 172 mg/dL (70-99) Calcium Level 9.9 mg/dL (8.5-10.1) 10.4 mg/dL (8.5-10.1) Magnesium Level 1.9 mg/dL (1.8-2.4) Total Bilirubin 0.3 mg/dL (0.2-1.0) Aspartate Amino Transf (AST/SGOT) 21 U/L (15-37) Alanine Aminotransferase (ALT/SGPT) 33 U/L (14-59) Alkaline Phosphatase 109 U/L (46-116) Troponin I Quantitative < 0.017 ng/mL (0.000-0.055) CK-Lwo-N-Type Natriuretic Peptide 176 pg/mL (0-124) Total Protein 6.9 g/dL (6.4-8.2) Albumin 3.4 g/dL (3.4-5.0) Albumin/Globulin Ratio 1.0 (1.0-1.7) Thyroid Stimulating Hormone (TSH) 0.712 uIU/mL (0.358-3.74) Free Thyroxine 0.98 ng/dL (0.76-1.46) Laboratory Tests Test 01/15/19 04:50 White Blood Count 6.9 x10^3/uL (4.0-11.0) Red Blood Count 3.77 x10^6/uL (3.50-5.40) Hemoglobin 12.1 g/dL (12.0-15.5) Hematocrit 36.4 % (36.0-47.0) Mean Corpuscular Volume 97 fL (79-100) Mean Corpuscular Hemoglobin 32 pg (25-35) Mean Corpuscular Hemoglobin Concent 33 g/dL (31-37) Red Cell Distribution Width 13.4 % (11.5-14.5) Platelet Count 225 x10^3/uL (140-400) Neutrophils (%) (Auto) 48 % (31-73) Lymphocytes (%) (Auto) 41 % (24-48) Monocytes (%) (Auto) 8 % (0-9) Eosinophils (%) (Auto) 2 % (0-3) Basophils (%) (Auto) 1 % (0-3) Neutrophils # (Auto) 3.3 x10^3/uL (1.8-7.7) Lymphocytes # (Auto) 2.8 x10^3/uL (1.0-4.8) Monocytes # (Auto) 0.6 x10^3/uL (0.0-1.1) Eosinophils # (Auto) 0.2 x10^3/uL (0.0-0.7) Basophils # (Auto) 0.0 x10^3/uL (0.0-0.2) Sodium Level 142 mmol/L (136-145) Potassium Level 4.8 mmol/L (3.5-5.1) Chloride Level 107 mmol/L (98-107) Carbon Dioxide Level 30 mmol/L (21-32) Anion Gap 5 (6-14) Blood Urea Nitrogen 14 mg/dL (7-20) Creatinine 1.1 mg/dL (0.6-1.0) Estimated GFR (Cockcroft-Gault) 58.7 Glucose Level 172 mg/dL (70-99) Calcium Level 10.4 mg/dL (8.5-10.1) Medications Current Medications Sodium Chloride 1,000 ml @ 100 mls/hr Q10H IV Last administered on 01/13/19 13:35; Start 01/13/19 at 13:06; Stop 01/13/19 at 23:05; Status DC Albuterol Sulfate (Ventolin Neb Soln) 2.5 mg PRN Q6HRS PRN INH SHORTNESS OF BREATH Last administered on 01/14/19 03:21; Start 01/13/19 at 19:00 Amitriptyline HCl (Elavil) 60 mg QHS PO Last administered on 01/14/19 21:13; Start 01/13/19 at 21:00 Clonidine HCl (Catapres) 0.3 mg BID PO Last administered on 01/14/19 21:13; Start 01/13/19 at 21:00 Labetalol HCl (Trandate) 200 mg BID PO Last administered on 01/14/19 21:13; Start 01/13/19 at 21:00 Oxycodone/ Acetaminophen (Percocet 7.5/ 325) 2 tab PRN TID PRN PO SEVERE PAIN Last administered on 01/14/19 23:33; Start 01/13/19 at 19:00 Polyethylene Glycol (miraLAX PACKET) 17 gm DAILY PO Last administered on 01/14/19at 09:05; Start 01/14/19 at 09:00 Diclofenac Sodium (Voltaren) 75 mg BID PO Last administered on 01/14/19at 21:13; Start 01/13/19 at 21:00 Glimepiride (Amaryl) 4 mg DAILYWBKFT PO Last administered on 01/14/19at 09:05; Start 01/14/19 at 08:00 Atorvastatin Calcium (Lipitor) 10 mg QHS PO Last administered on 01/14/19at 21:13; Start 01/13/19 at 21:00 Pregabalin (Lyrica) 100 mg BID PO Last administered on 01/14/19 21:13; Start 01/13/19 at 21:00 Prochlorperazine Maleate (Compazine) 10 mg PRN Q8HRS PRN PO NAUSEA/VOMITING; Start 01/13/19 at 19:15 Sodium Chloride 1,000 ml @ 75 mls/hr 1X ONCE IV Last administered on 01/14/19at 14:09; Start 01/14/19 at 12:30; Stop 01/15/19 at 01:49; Status DC Active Scripts Active Miralax (Polyethylene Glycol 3350) 17 Gm Powd.pack 1 Packet PO DAILY Lyrica (Pregabalin) 100 Mg Capsule 1 Cap PO BID 30 Days Reported Percocet 7.5-325 Mg Tablet (Oxycodone/Acetaminophen) 1 Each Tablet 2 Tab PO PRN TID PRN Proair Hfa Inhaler (Albuterol Sulfate) 8.5 Gm Hfa.aer.ad 2 Puff INH PRN Q6HRS PRN Amitriptyline Hcl 10 Mg Tablet 6 Tab PO QHS Glimepiride 4 Mg Tablet 1 Tab PO DAILYWBKFT Compazine (Prochlorperazine Maleate) 10 Mg Tablet 10 Mg PO PRN Q8HRS PRN Diclofenac Sodium 75 Mg Tablet.dr 1 Tab PO BID Pravastatin Sodium 40 Mg Tablet 1 Tab PO QHS Clonidine Hcl 0.3 Mg Tablet 1 Tab PO BID Labetalol Hcl 200 Mg Tablet 1 Tab PO BID Vitals/I & O Vital Sign - Last 24 Hours 01/14/19 01/14/19 01/14/19 01/14/19 09:05 09:05 09:05 11:00 Temp 98.0 98.0 Pulse 63 63 71 Resp 18 B/P (MAP) 120/60 120/60 115/61 (79) Pulse Ox 92 O2 Delivery Room Air Room Air 01/14/19 01/14/19 01/14/19 01/14/19 13:51 15:00 19:00 20:00 Temp 98.4 98.5 98.4 98.5 Pulse 61 65 Resp 16 16 18 B/P (MAP) 120/70 (87) 126/66 (86) Pulse Ox 92 99 99 O2 Delivery Room Air Room Air Room Air Room Air 01/14/19 01/14/19 01/14/19 01/14/19 21:13 21:13 23:00 23:33 Temp 98.5 98.5 Pulse 65 65 76 Resp 18 B/P (MAP) 126/66 126/66 126/81 (96) Pulse Ox 98 O2 Delivery Room Air Room Air 01/15/19 01/15/19 00:50 03:00 Temp 98.2 98.2 Pulse 61 Resp 18 B/P (MAP) 134/44 (74) Pulse Ox 96 O2 Delivery Room Air Room Air BLAYNE MILES MD Jan 15, 2019 08:01
[2019-01-15] MEDS: POLYETHYLENE GLYCOL 3350 17 GM PACKET. PO SCH (09:00)
[2019-01-15] MEDS: PREGABALIN 50 MG CAPSULE PO SCH ×2 (09:05→21:53)
[2019-01-15] MEDS: GLIMEPIRIDE 2 MG TABLET. PO SCH (09:05)
[2019-01-15] MEDS: LABETALOL HCL 200 MG TABLET PO SCH ×2 (09:05→21:54)
[2019-01-15] MEDS: cloNIDine HCL 0.3 MG TABLET PO SCH ×2 (09:06→21:54)
[2019-01-15] MEDS: DICLOFENAC SODIUM 25 MG TABLET.DR PO SCH ×2 (09:08→21:53)
[2019-01-15 11:00] VITALS: BP 121/73
[2019-01-15] MEDS: oxyCODONE/APAP 7.5/325 1 TAB TABLET PO PRN ×2 (12:27→22:01)
--- NOTE | 2019-01-15 14:43 | NUR ---
SW consulted for placement, frequent admission. Chart reviewed and discussed with RN. Pt has been to [facility] in December 2018 for about two weeks before going home. Pt reports she is working with her daughter to move in to an Assisted Living place and plans to move out of her current apartment by the end of this month. SW discussed SW can facilitate dc to AL if pt is already accepted and had completed necessary financial paperwork. Pt reports her daughter is currently working on finishing paperwork and unable to verify place of AL or if she is accepted at the facility. SW discussed about SNU vs LTC but pt seems to be more appropriate for AL placement at this time. PT/OT ordered. Plan 1. SW will await for PT/OT recommendation, 2. SW left a voice mail to Pt's daughter, Jolanta, phone: [phone] requesting a call back. 3. Supportive counseling, 4. RN in room during above discussion. Will continue to follow pt.
[2019-01-15 15:00] VITALS: BP 146/76
--- NOTE | 2019-01-15 16:06 | RAD ---
CT HEAD WO CONTRAST History: Falls, weakness Comparison: None. Technique: Noncontrast CT imaging was performed of the head. Exposure: One or more of the following individualized dose reduction techniques were utilized for this examination: 1. Automated exposure control 2. Adjustment of the mA and/or kV according to patient size 3. Use of iterative reconstruction technique. Findings: No acute extra-axial or parenchymal hemorrhage is identified. Calvarium appears somewhat diffusely thickened, some areas which appear more sclerotic such as on the right. There a few small more defined sclerotic foci There is no significant intra-axial mass effect, midline shift, or extra-axial fluid collection. The lazo-white differentiation of the major vascular territories is preserved. The ventricles, sulci, and cisterns are within normal limits in size and configuration. The mastoid air cells and the visualized paranasal sinuses are aerated. No acute calvarial abnormality is identified. There is atherosclerotic calcification of the carotid siphons bilaterally. Impression: 1. No acute intracranial abnormality is identified. 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 2. There is diffuse calvarial thickening, some areas of relative increased sclerosis on the right, consideration of sequela of Paget's disease. Electronically signed by: Justin Calix MD (01/15/2019 4:03 PM) [id number]
[2019-01-15 19:00] VITALS: BP 137/76
[2019-01-15] MEDS: ATORVASTATIN CALCIUM 10 MG TABLET. PO SCH (21:52)
[2019-01-15] MEDS: AMITRIPTYLINE HCL 10 MG TABLET. PO SCH (21:53)
[2019-01-15 23:00] VITALS: BP 146/83
[2019-01-16 03:00] VITALS: BP 128/72
[2019-01-16 04:52] LABS: BASO # 0.1 x10^3/uL (0.0-0.2); BASO % 1 % (0-3); EOS # 0.2 x10^3/uL (0.0-0.7); EOS % 3 % (0-3); HEMATOCRIT 35.2 % (36.0-47.0); HEMOGLOBIN 11.4 g/dL (12.0-15.5); LYMPH # 2.7 x10^3/uL (1.0-4.8); LYMPH % 42 % (24-48); MEAN CORPUSCULAR HEMOGLOBIN 31 pg (25-35); MEAN CORPUSCULAR HGB CONC 33 g/dL (31-37); MEAN CORPUSCULAR VOLUME 97 fL (79-100); MONO # 0.7 x10^3/uL (0.0-1.1); MONO % 10 % (0-9); NEUT # 2.7 x10^3/uL (1.8-7.7); NEUT % 43 % (31-73); PLATELET COUNT 222 x10^3/uL (140-400); RED BLOOD COUNT 3.64 x10^6/uL (3.50-5.40); RED CELL DISTRIBUTION WIDTH 13.1 % (11.5-14.5); WHITE BLOOD COUNT 6.3 x10^3/uL (4.0-11.0)
[2019-01-16 05:20] LABS: ALBUMIN/GLOBULIN RATIO 0.8 (1.0-1.7); CALCIUM 10.2 mg/dL (8.5-10.1); GFR 65.6; POTASSIUM 4.3 mmol/L (3.5-5.1); TOTAL BILIRUBIN 0.3 mg/dL (0.2-1.0); TOTAL PROTEIN 6.9 g/dL (6.4-8.2)
[2019-01-16 07:00] VITALS: BP 125/73
--- NOTE | 2019-01-16 07:22 | PDOC ---
PROGRESS NOTES History of Present Illness History of Present Illness ASSESSMENT AND PLAN: Weakness with incidental finding of a swollen left leg. no sonographic evidence of deep venous thrombosis involving the visualized deep venous structures of either lower extremity. failure to thrive. 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 ELEVATED ESR admit consult socially responsible investment adviser for possible long-term care placement or [place] [facility] Await lower extremity Doppler report. Home meds, DVT prophylaxis, PT, OT, frequent labs consult Neurology. iv fluid support ct head Pt with limitations in functional mobility, ADLs and IADLs and would benefit from PT/OT POSSIBLE autoimmune or inflammatory process that could be contributing to her p ain 27 MIN PT EXAM, CHART REVIEW, > 50% OF TIME SPENT WITH EXAM, CHART REVIEW , PT CARE COORDINATION Vitals Vitals Vital Signs Date Time Temp Pulse Resp B/P (MAP) Pulse Ox O2 Delivery O2 Flow Rate FiO2 01/16/19 05:35 18 96 Room Air 01/16/19 03:00 98.0 59 128/72 (90) 98.0 Physical Exam Physical Exam GENERAL: No apparent distress. Alert and oriented. HEENT: Head is normocephalic, atraumatic, pupils were equally round and reactive to light and accommodation. NECK: Supple, no JVD, no thyromegaly was noted. LUNGS: Clear to auscultation in all lung rabago without rhonchi or wheezing. HEART: RRR, S1, S2 present. Peripheral pulses intact, no obvious murmurs were noted. ABDOMEN: Soft, nontender. Positive bowel sounds no organomegaly, normal bowel sounds. EXTREMITIES: Without any cyanosis, clubbing, or edema. Pedal pulses intact, Homans sign is negative. NEUROLOGIC: She is very weak. PSYCHIATRIC: Normal affect, normal mood. Stable. SKIN: No ulcerations or rashes, good skin turgor, no jaundice. VASCULAR: Good capillary refill, neurovascular bundle appears to be intact. MUSCULOSKELETAL: General: Alert, Oriented X3, Cooperative, No acute distress Heart: Regular rate, Normal S1, Normal S2, No murmurs Lungs: Clear Abdomen: Normal bowel sounds, Soft Extremities: No cyanosis, No edema Skin: No significant lesion Labs LABS Bilateral lower extremity venous duplex study 01/13/2019 Clinical History: Bilateral leg swelling and pain for one year. Technique: Using a combination of real time ultrasound imaging and color-flow and pulse Doppler imaging techniques along with graded compression and augmentation, duplex evaluation of the deep venous system of the both lower extremities was performed. Multiple images were obtained. Findings: There is no sonographic evidence of deep venous thrombosis involving the visualized deep venous structures of either lower extremity. Impression: Negative study. Electronically signed by: Rico Gillis MD (01/13/2019 7:36 PM) [facility]- Laboratory Tests Test 01/16/19 04:30 White Blood Count 6.3 x10^3/uL (4.0-11.0) Red Blood Count 3.64 x10^6/uL (3.50-5.40) Hemoglobin 11.4 g/dL (12.0-15.5) Hematocrit 35.2 % (36.0-47.0) Mean Corpuscular Volume 97 fL (79-100) Mean Corpuscular Hemoglobin 31 pg (25-35) Mean Corpuscular Hemoglobin Concent 33 g/dL (31-37) Red Cell Distribution Width 13.1 % (11.5-14.5) Platelet Count 222 x10^3/uL (140-400) Neutrophils (%) (Auto) 43 % (31-73) Lymphocytes (%) (Auto) 42 % (24-48) Monocytes (%) (Auto) 10 % (0-9) Eosinophils (%) (Auto) 3 % (0-3) Basophils (%) (Auto) 1 % (0-3) Neutrophils # (Auto) 2.7 x10^3/uL (1.8-7.7) Lymphocytes # (Auto) 2.7 x10^3/uL (1.0-4.8) Monocytes # (Auto) 0.7 x10^3/uL (0.0-1.1) Eosinophils # (Auto) 0.2 x10^3/uL (0.0-0.7) Basophils # (Auto) 0.1 x10^3/uL (0.0-0.2) Sodium Level 140 mmol/L (136-145) Potassium Level 4.3 mmol/L (3.5-5.1) Chloride Level 106 mmol/L (98-107) Carbon Dioxide Level 28 mmol/L (21-32) Anion Gap 6 (6-14) Blood Urea Nitrogen 15 mg/dL (7-20) Creatinine 1.0 mg/dL (0.6-1.0) Estimated GFR (Cockcroft-Gault) 65.6 BUN/Creatinine Ratio 15 (6-20) Glucose Level 178 mg/dL (70-99) Calcium Level 10.2 mg/dL (8.5-10.1) Total Bilirubin 0.3 mg/dL (0.2-1.0) Aspartate Amino Transf (AST/SGOT) 12 U/L (15-37) Alanine Aminotransferase (ALT/SGPT) 18 U/L (14-59) Alkaline Phosphatase 93 U/L (46-116) Total Protein 6.9 g/dL (6.4-8.2) Albumin 3.0 g/dL (3.4-5.0) Albumin/Globulin Ratio 0.8 (1.0-1.7) Assessment and Plan Assessmemt and Plan Problems Medical Problems: (1) Generalized weakness Status: Acute Comment Review of Relevant I have reviewed the following items jorge luis (where applicable) has been applied. Labs Laboratory Tests Test 01/15/19 04:50 01/16/19 04:30 White Blood Count 6.9 x10^3/uL (4.0-11.0) 6.3 x10^3/uL (4.0-11.0) Red Blood Count 3.77 x10^6/uL (3.50-5.40) 3.64 x10^6/uL (3.50-5.40) Hemoglobin 12.1 g/dL (12.0-15.5) 11.4 g/dL (12.0-15.5) Hematocrit 36.4 % (36.0-47.0) 35.2 % (36.0-47.0) Mean Corpuscular Volume 97 fL (79-100) 97 fL (79-100) Mean Corpuscular Hemoglobin 32 pg (25-35) 31 pg (25-35) Mean Corpuscular Hemoglobin Concent 33 g/dL (31-37) 33 g/dL (31-37) Red Cell Distribution Width 13.4 % (11.5-14.5) 13.1 % (11.5-14.5) Platelet Count 225 x10^3/uL (140-400) 222 x10^3/uL (140-400) Neutrophils (%) (Auto) 48 % (31-73) 43 % (31-73) Lymphocytes (%) (Auto) 41 % (24-48) 42 % (24-48) Monocytes (%) (Auto) 8 % (0-9) 10 % (0-9) Eosinophils (%) (Auto) 2 % (0-3) 3 % (0-3) Basophils (%) (Auto) 1 % (0-3) 1 % (0-3) Neutrophils # (Auto) 3.3 x10^3/uL (1.8-7.7) 2.7 x10^3/uL (1.8-7.7) Lymphocytes # (Auto) 2.8 x10^3/uL (1.0-4.8) 2.7 x10^3/uL (1.0-4.8) Monocytes # (Auto) 0.6 x10^3/uL (0.0-1.1) 0.7 x10^3/uL (0.0-1.1) Eosinophils # (Auto) 0.2 x10^3/uL (0.0-0.7) 0.2 x10^3/uL (0.0-0.7) Basophils # (Auto) 0.0 x10^3/uL (0.0-0.2) 0.1 x10^3/uL (0.0-0.2) Sodium Level 142 mmol/L (136-145) 140 mmol/L (136-145) Potassium Level 4.8 mmol/L (3.5-5.1) 4.3 mmol/L (3.5-5.1) Chloride Level 107 mmol/L (98-107) 106 mmol/L (98-107) Carbon Dioxide Level 30 mmol/L (21-32) 28 mmol/L (21-32) Anion Gap 5 (6-14) 6 (6-14) Blood Urea Nitrogen 14 mg/dL (7-20) 15 mg/dL (7-20) Creatinine 1.1 mg/dL (0.6-1.0) 1.0 mg/dL (0.6-1.0) Estimated GFR (Cockcroft-Gault) 58.7 65.6 Glucose Level 172 mg/dL (70-99) 178 mg/dL (70-99) Calcium Level 10.4 mg/dL (8.5-10.1) 10.2 mg/dL (8.5-10.1) BUN/Creatinine Ratio 15 (6-20) Total Bilirubin 0.3 mg/dL (0.2-1.0) Aspartate Amino Transf (AST/SGOT) 12 U/L (15-37) Alanine Aminotransferase (ALT/SGPT) 18 U/L (14-59) Alkaline Phosphatase 93 U/L (46-116) Total Protein 6.9 g/dL (6.4-8.2) Albumin 3.0 g/dL (3.4-5.0) Albumin/Globulin Ratio 0.8 (1.0-1.7) Laboratory Tests Test 01/16/19 04:30 White Blood Count 6.3 x10^3/uL (4.0-11.0) Red Blood Count 3.64 x10^6/uL (3.50-5.40) Hemoglobin 11.4 g/dL (12.0-15.5) Hematocrit 35.2 % (36.0-47.0) Mean Corpuscular Volume 97 fL (79-100) Mean Corpuscular Hemoglobin 31 pg (25-35) Mean Corpuscular Hemoglobin Concent 33 g/dL (31-37) Red Cell Distribution Width 13.1 % (11.5-14.5) Platelet Count 222 x10^3/uL (140-400) Neutrophils (%) (Auto) 43 % (31-73) Lymphocytes (%) (Auto) 42 % (24-48) Monocytes (%) (Auto) 10 % (0-9) Eosinophils (%) (Auto) 3 % (0-3) Basophils (%) (Auto) 1 % (0-3) Neutrophils # (Auto) 2.7 x10^3/uL (1.8-7.7) Lymphocytes # (Auto) 2.7 x10^3/uL (1.0-4.8) Monocytes # (Auto) 0.7 x10^3/uL (0.0-1.1) Eosinophils # (Auto) 0.2 x10^3/uL (0.0-0.7) Basophils # (Auto) 0.1 x10^3/uL (0.0-0.2) Sodium Level 140 mmol/L (136-145) Potassium Level 4.3 mmol/L (3.5-5.1) Chloride Level 106 mmol/L (98-107) Carbon Dioxide Level 28 mmol/L (21-32) Anion Gap 6 (6-14) Blood Urea Nitrogen 15 mg/dL (7-20) Creatinine 1.0 mg/dL (0.6-1.0) Estimated GFR (Cockcroft-Gault) 65.6 BUN/Creatinine Ratio 15 (6-20) Glucose Level 178 mg/dL (70-99) Calcium Level 10.2 mg/dL (8.5-10.1) Total Bilirubin 0.3 mg/dL (0.2-1.0) Aspartate Amino Transf (AST/SGOT) 12 U/L (15-37) Alanine Aminotransferase (ALT/SGPT) 18 U/L (14-59) Alkaline Phosphatase 93 U/L (46-116) Total Protein 6.9 g/dL (6.4-8.2) Albumin 3.0 g/dL (3.4-5.0) Albumin/Globulin Ratio 0.8 (1.0-1.7) Medications Current Medications Sodium Chloride 1,000 ml @ 100 mls/hr Q10H IV Last administered on 01/13/19at 13:35; Start 01/13/19 at 13:06; Stop 01/13/19 at 23:05; Status DC Albuterol Sulfate (Ventolin Neb Soln) 2.5 mg PRN Q6HRS PRN INH SHORTNESS OF BREATH Last administered on 01/14/19at 03:21; Start 01/13/19 at 19:00 Amitriptyline HCl (Elavil) 60 mg QHS PO Last administered on 01/15/19at 21:55; Start 01/13/19 at 21:00 Clonidine HCl (Catapres) 0.3 mg BID PO Last administered on 01/15/19at 21:55; Start 01/13/19 at 21:00 Labetalol HCl (Trandate) 200 mg BID PO Last administered on 01/15/19at 21:55; Start 01/13/19 at 21:00 Oxycodone/ Acetaminophen (Percocet 7.5/ 325) 2 tab PRN TID PRN PO SEVERE PAIN Last administered on 01/15/19 22:01; Start 01/13/19 at 19:00 Polyethylene Glycol (miraLAX PACKET) 17 gm DAILY PO Last administered on 01/14/19at 09:05; Start 01/14/19 at 09:00 Diclofenac Sodium (Voltaren) 75 mg BID PO Last administered on 01/15/19 21:55; Start 01/13/19 at 21:00 Glimepiride (Amaryl) 4 mg DAILYWBKFT PO Last administered on 01/15/19 09:06; Start 01/14/19 at 08:00 Atorvastatin Calcium (Lipitor) 10 mg QHS PO Last administered on 01/15/19 21:55; Start 01/13/19 at 21:00 Pregabalin (Lyrica) 100 mg BID PO Last administered on 01/15/19 21:55; Start 01/13/19 at 21:00 Prochlorperazine Maleate (Compazine) 10 mg PRN Q8HRS PRN PO NAUSEA/VOMITING; Start 01/13/19 at 19:15 Sodium Chloride 1,000 ml @ 75 mls/hr 1X ONCE IV Last administered on 01/14/19 14:09; Start 01/14/19 at 12:30; Stop 01/15/19 at 01:49; Status DC Active Scripts Active Miralax (Polyethylene Glycol 3350) 17 Gm Powd.pack 1 Packet PO DAILY Lyrica (Pregabalin) 100 Mg Capsule 1 Cap PO BID 30 Days Reported Percocet 7.5-325 Mg Tablet (Oxycodone/Acetaminophen) 1 Each Tablet 2 Tab PO PRN TID PRN Proair Hfa Inhaler (Albuterol Sulfate) 8.5 Gm Hfa.aer.ad 2 Puff INH PRN Q6HRS PRN Amitriptyline Hcl 10 Mg Tablet 6 Tab PO QHS Glimepiride 4 Mg Tablet 1 Tab PO DAILYWBKFT Compazine (Prochlorperazine Maleate) 10 Mg Tablet 10 Mg PO PRN Q8HRS PRN Diclofenac Sodium 75 Mg Tablet.dr 1 Tab PO BID Pravastatin Sodium 40 Mg Tablet 1 Tab PO QHS Clonidine Hcl 0.3 Mg Tablet 1 Tab PO BID Labetalol Hcl 200 Mg Tablet 1 Tab PO BID Vitals/I & O Vital Sign - Last 24 Hours 01/15/19 01/15/19 01/15/19 01/15/19 08:00 09:06 09:06 11:00 Temp 98.0 98.0 Pulse 65 65 63 Resp 16 B/P (MAP) 140/76 140/76 121/73 (89) Pulse Ox 94 O2 Delivery Room Air Room Air 01/15/19 01/15/19 01/15/19 01/15/19 15:00 19:00 20:00 21:55 Temp 98.8 99.2 98.8 99.2 Pulse 73 70 75 Resp 18 20 B/P (MAP) 146/76 (99) 137/76 (96) 158/88 Pulse Ox 97 97 O2 Delivery Room Air Room Air Room Air 01/15/19 01/15/19 01/15/19 01/16/19 21:55 22:01 23:00 03:00 Temp 99.1 98.0 99.1 98.0 Pulse 75 68 59 Resp 20 20 20 B/P (MAP) 158/88 146/83 (104) 128/72 (90) Pulse Ox 97 100 96 O2 Delivery Room Air Room Air Room Air 01/16/19 05:35 Resp 18 Pulse Ox 96 O2 Delivery Room Air Intake and Output 01/15/19 01/15/19 01/16/19 14:59 22:59 06:59 Intake Total 640 ml Output Total 475 ml 600 ml Balance -475 ml 40 ml BLAYNE MILES MD Jan 16, 2019 07:22
[2019-01-16] MEDS: POLYETHYLENE GLYCOL 3350 17 GM PACKET. PO SCH (09:00)
[2019-01-16] MEDS: PREGABALIN 50 MG CAPSULE PO SCH ×2 (09:35→21:01)
[2019-01-16] MEDS: oxyCODONE/APAP 7.5/325 1 TAB TABLET PO PRN ×2 (09:36→17:51)
[2019-01-16] MEDS: GLIMEPIRIDE 2 MG TABLET. PO SCH (09:36)
[2019-01-16] MEDS: LABETALOL HCL 200 MG TABLET PO SCH ×2 (09:36→20:59)
[2019-01-16] MEDS: cloNIDine HCL 0.3 MG TABLET PO SCH ×2 (09:37→21:00)
[2019-01-16 11:00] VITALS: BP 132/75
--- NOTE | 2019-01-16 12:25 | CONS ---
DATE OF CONSULTATION: 01/16/2019 REFERRING PHYSICIAN: Srinivas Nolasco MD REASON FOR CONSULTATION: Generalized weakness in legs. HISTORY OF PRESENT ILLNESS: The patient is a pleasant 73-year-old woman who has been admitted on multiple occasions with generalized weakness as well as falls. The weakness has been gradually progressing over the last several months. She had been receiving chcf in November and December to improve her strength, but according to records, she has been going backwards. She just keeps getting weaker. She has also had swelling of her left leg. She was admitted once again because she could no longer support her weight. She does report easily becoming short of breath. Both legs are painful, but the left is more painful than the right. The pain in the legs predates her falls. She has undergone investigation including a CT scan of the lumbar spine on 11/30/2018 which revealed degenerative changes and some stenosis. She has had blood work, which is not that revealing. She has had multiple admissions with acute renal failure. On this occasion, she does not have renal failure, but she has extremely concentrated urine, suggesting she is not drinking much water. She does admit she does not like water and may drink two bottles of water per day at the most. PAST MEDICAL HISTORY: 1. Arthritis. 2. Asthma. 3. Diabetes. 4. Coronary artery disease. 5. Hypertension. 6. Hyperlipidemia. 7. Transient ischemic attack. 8. Peripheral neuropathy. 9. Cholecystectomy. 10. Hysterectomy. 11. Tonsillectomy. ALLERGIES: No known allergies to drugs. MEDICATIONS PRIOR TO ADMISSION: Albuterol metered dose inhaler every 6 hours as needed, amitriptyline 60 mg nightly, clonidine 0.3 mg twice per day, diclofenac sodium 75 mg twice per day, glimepiride 4 mg daily, labetalol 200 mg twice per day, oxycodone/acetaminophen 7.5/325 two tablets 3 times per day as needed, MiraLax daily, pravastatin 40 mg at night, Lyrica 100 mg twice per day and Compazine 10 mg every 8 hours as needed. FAMILY HISTORY: Diabetes. SOCIAL HISTORY: She does not smoke tobacco, drink alcohol or use recreational drugs. She has lived alone. REVIEW OF SYSTEMS: She has not had headache. There has been no change of hearing. She has noted some minor loss of vision gradually. She has not had any nose or sinus trouble. She has not had cognitive loss, but does admit she occasionally does have some difficulty with word finding. She has had no trouble with chewing or swallowing. She does not have a cough or cold. She easily becomes short of breath. There has been no chest or abdominal pain. Does have bone and joint pain in both legs, left worse than right. The left leg also feels heavier. She does have numbness in the feet from neuropathy. Denies any genitourinary complaints. There have been no gastrointestinal complaints. She denies any psychiatric concerns. She does have swelling in the left leg and both feet. She does not complain of excessive bruising or bleeding. PHYSICAL EXAMINATION: VITAL SIGNS: The blood pressure was 132/74, pulse 59, respirations 16, temperature 98.9 degrees Fahrenheit. Oximetry was 98% on room air. Her weight was 117 kilograms, height 69 inches with a calculated body mass index of 38.1. GENERAL: She was alert, awake and cooperative. Speech was fluent and clear. She had a good fund of recent and remote knowledge. Attention and concentration was intact. She appeared well groomed and well nourished. She was fully oriented. NEUROLOGIC: Examination of the cranial nerves revealed visual rabago were full to confrontation. Extraocular movements were intact. The eyes were conjugate. Pursuit movements were smooth and saccadic eye movements were without dysmetria. Pupils were 3 mm and reactive. Funduscopic exam did not reveal papilledema, exudate or hemorrhage. Facial sensation was intact. The muscles of mastication and facial expression were powerful symmetrically. Hearing was intact to finger rub. The palate arched symmetrically and the tongue was midline with full range of motion. Sternocleidomastoid and trapezius were powerful. Muscle bulk and tone was normal. There was no arm or leg drift. Power was full and symmetric in the upper extremities. In the lower extremities, there was marked weakness. This seemed to be limited by pain. She was able to raise either leg off the bed, but did not do as well with the left. She is able to bend her knees and move her ankles. Power on the right leg was 4/5. Power in the left leg was 3-4/5. Reflexes were 2/4 in the upper extremities, but absent at knees and ankles. Some of this may have been technical as I could not fully bend her knees to get a proper angle for good reflex. The toes were not upgoing. Coordination testing with [id number], fine motor and rapid alternating movements was well performed in the arms. She was too weak for coordination testing in the legs. Sensory examination was intact to pain, light touch, proprioception, graphesthesia, cold thermal and vibration except for some sensory shading in the feet. There was no extinction to double simultaneous stimulation. Gait was not testable. NECK: Auscultation of the carotid arteries did not reveal a bruit. HEART: Rhythm was regular without a murmur. EXTREMITIES: Peripheral pulses were symmetric. There was some edema of the left leg and somewhat in both feet. There was no cyanosis. REVIEW OF LABORATORY DATA: CBC revealed a normal white blood cell count and platelet count. Hemoglobin was low at 11.4 and hematocrit at 35.2. Chemistries revealed normal electrolytes. BUN was 15 and creatinine 1 with a calculated GFR of 65.6. Glucose was elevated to 178, calcium was elevated at 10.2. Liver enzymes were not elevated. Total protein was normal, but albumin was low at 3. TSH and T4 free were normal. BNP was slightly elevated at 176. Troponin was not elevated. PT/INR was 1. Urinalysis revealed specific gravity to be highly concentrated at greater than 1.030. There was a small amount of bilirubin and occasional white and red cells and moderate squamous epithelial cells. CT scan of the brain was performed 01/15/2019 and revealed no acute intracranial process. 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 There was a left lower extremity ultrasound performed on 01/13/2019. There was no sonographic evidence of deep venous thrombosis involving the visualized deep venous structures of either lower extremity. Chest x-ray revealed no acute cardiopulmonary disease. IMPRESSION: The patient is a pleasant 73-year-old woman who has had recurrent hospitalizations for weakness. I do not see a specific neurologic etiology. There are no focal findings that would suggest stroke. She does not have spasticity or pathologic reflexes to suggest a myelopathy. She seems to have weakness with movement, which could suggest more of an arthritic process. She is doing very well in the upper extremities, but has difficulty in the lower. She seems to have a difficult time drinking enough water because she does not like water. Her urine was quite concentrated, although she had not yet gone into acute renal failure as she had previously. RECOMMENDATIONS: I will obtain further labs looking for an autoimmune or inflammatory process that could be contributing to her pain. I will write for [employer], which has not yet been written for, for DVT prevention as she is a setup to have this issue as she is at bed rest. She would not tolerate sequential compression devices well because she has pain with touching or squeezing of her legs. I agree that she will need rehabilitation, but it is hard to know how long it will keep her going. If this may have chronologically tied into one of the statins that were initiated, it may be reasonable to hold the statin if there is a possibility this could be contributing to muscular pain. I appreciate being involved in her care. SOCORRO CAMPOS MD DR: PACHECO/manju JOB#: [id number] / [id number]
[2019-01-16] MEDS: ENOXAPARIN 40 MG/0.4 ML SYRINGE. SQ SCH (13:02)
[2019-01-16] MEDS: DICLOFENAC SODIUM 25 MG TABLET.DR PO SCH ×2 (13:02→21:00)
[2019-01-16 15:00] VITALS: BP 131/63
[2019-01-16 19:00] VITALS: BP 150/84
[2019-01-16] MEDS: ATORVASTATIN CALCIUM 10 MG TABLET. PO SCH (20:59)
[2019-01-16] MEDS: AMITRIPTYLINE HCL 10 MG TABLET. PO SCH (20:59)
[2019-01-16 22:00] VITALS: BP 136/81
[2019-01-16 23:07] LABS: RHEUMATOID FACTOR <10.0 IU/mL (0.0-13.9)
[2019-01-17 03:00] VITALS: BP 125/73
[2019-01-17 07:00] VITALS: BP 135/63
--- NOTE | 2019-01-17 08:33 | PDOC ---
PROGRESS NOTES History of Present Illness History of Present Illness ASSESSMENT AND PLAN: Weakness with incidental finding of a swollen left leg. no sonographic evidence of deep venous thrombosis involving the visualized deep venous structures of either lower extremity. failure to thrive. 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 ELEVATED ESR admit consult hospital social worker for possible long-term care placement or halfway Await lower extremity Doppler report. Home meds, DVT prophylaxis, PT, OT, frequent labs consult Neurology. iv fluid support ct head Pt with limitations in functional mobility, ADLs and IADLs and would benefit from PT/OT POSSIBLE autoimmune or inflammatory process that could be contributing to her p ain * 2 weeks Discharge Recommendations * [facility] Discharge Recommendation - DME * Rolling Walker needed * and ambulation safely 27 MIN PT EXAM, CHART REVIEW, > 50% OF TIME SPENT WITH EXAM, CHART REVIEW , PT CARE COORDINATION Vitals Vitals Vital Signs Date Time Temp Pulse Resp B/P (MAP) Pulse Ox O2 Delivery O2 Flow Rate FiO2 01/17/19 07:00 98.9 59 16 135/63 (87) 97 Room Air 98.9 Physical Exam Physical Exam GENERAL: No apparent distress. Alert and oriented. HEENT: Head is normocephalic, atraumatic, pupils were equally round and reactive to light and accommodation. NECK: Supple, no JVD, no thyromegaly was noted. LUNGS: Clear to auscultation in all lung rabago without rhonchi or wheezing. HEART: RRR, S1, S2 present. Peripheral pulses intact, no obvious murmurs were noted. ABDOMEN: Soft, nontender. Positive bowel sounds no organomegaly, normal bowel sounds. EXTREMITIES: Without any cyanosis, clubbing, or edema. Pedal pulses intact, Homans sign is negative. NEUROLOGIC: She is very weak. PSYCHIATRIC: Normal affect, normal mood. Stable. SKIN: No ulcerations or rashes, good skin turgor, no jaundice. VASCULAR: Good capillary refill, neurovascular bundle appears to be intact. MUSCULOSKELETAL: General: Alert, Oriented X3, Cooperative, No acute distress Heart: Regular rate, Normal S1, Normal S2, No murmurs Lungs: Clear Abdomen: Normal bowel sounds, Soft Extremities: No cyanosis, No edema Skin: No significant lesion Labs LABS Laboratory Tests Test 01/16/19 12:05 Erythrocyte Sedimentation Rate 35 (0-25) Iron Level 55 ug/dL (50-170) Total Iron Binding Capacity 330 ug/dL (250-450) Iron Saturation 17 % (15-34) C-Reactive Protein, Quantitative < 0.5 mg/L (0-3.3) Rheumatoid Factor <10.0 IU/mL (0.0-13.9) Learning Preferences * One-on-One Instruction * Visual * Demonstration * Discussion Problem List (body system elements) * Impaired fnctnl mobility * Strength * Obesity * ROM * Balance * Age * Coordination * Knowledge-safe techniques * Pain Patient condition at conclusion of therapy * Pt in chair * Phone in reach * PtIn no apparent distress * Pt denies further needs * RN/PERSONNEL RECRUITER with patient Goal 1 - Bed Mobility Assistance Required * Supervision Goal 2 - Transfers Assistance Required * Supervision Goal 2 - Transfer Type * Sit to Stand Goal 3 - Ambulation Assistance Required * Supervision Goal 3 - Ambulation Distance * 25' Goal 3 - Ambulation Device * Roller Walker Treatment Plan * Therapeutic Exercise * Bed Mobility Training * Transfer training * Gait Training Frequency of Treatment Expected * 7 visits/week Duration of Treatment Expected * 2 weeks Discharge Recommendations * [facility] Discharge Recommendation - DME * Rolling Walker needed * and ambulation safely Discharge Recommendation Comments * SNU Assessment and Plan Assessmemt and Plan Problems Medical Problems: (1) Generalized weakness Status: Acute Comment Review of Relevant I have reviewed the following items jorge luis (where applicable) has been applied. Labs Laboratory Tests Test 01/16/19 04:30 01/16/19 12:05 White Blood Count 6.3 x10^3/uL (4.0-11.0) Red Blood Count 3.64 x10^6/uL (3.50-5.40) Hemoglobin 11.4 g/dL (12.0-15.5) Hematocrit 35.2 % (36.0-47.0) Mean Corpuscular Volume 97 fL (79-100) Mean Corpuscular Hemoglobin 31 pg (25-35) Mean Corpuscular Hemoglobin Concent 33 g/dL (31-37) Red Cell Distribution Width 13.1 % (11.5-14.5) Platelet Count 222 x10^3/uL (140-400) Neutrophils (%) (Auto) 43 % (31-73) Lymphocytes (%) (Auto) 42 % (24-48) Monocytes (%) (Auto) 10 % (0-9) Eosinophils (%) (Auto) 3 % (0-3) Basophils (%) (Auto) 1 % (0-3) Neutrophils # (Auto) 2.7 x10^3/uL (1.8-7.7) Lymphocytes # (Auto) 2.7 x10^3/uL (1.0-4.8) Monocytes # (Auto) 0.7 x10^3/uL (0.0-1.1) Eosinophils # (Auto) 0.2 x10^3/uL (0.0-0.7) Basophils # (Auto) 0.1 x10^3/uL (0.0-0.2) Sodium Level 140 mmol/L (136-145) Potassium Level 4.3 mmol/L (3.5-5.1) Chloride Level 106 mmol/L (98-107) Carbon Dioxide Level 28 mmol/L (21-32) Anion Gap 6 (6-14) Blood Urea Nitrogen 15 mg/dL (7-20) Creatinine 1.0 mg/dL (0.6-1.0) Estimated GFR (Cockcroft-Gault) 65.6 BUN/Creatinine Ratio 15 (6-20) Glucose Level 178 mg/dL (70-99) Calcium Level 10.2 mg/dL (8.5-10.1) Total Bilirubin 0.3 mg/dL (0.2-1.0) Aspartate Amino Transf (AST/SGOT) 12 U/L (15-37) Alanine Aminotransferase (ALT/SGPT) 18 U/L (14-59) Alkaline Phosphatase 93 U/L (46-116) Total Protein 6.9 g/dL (6.4-8.2) Albumin 3.0 g/dL (3.4-5.0) Albumin/Globulin Ratio 0.8 (1.0-1.7) Erythrocyte Sedimentation Rate 35 (0-25) Iron Level 55 ug/dL (50-170) Total Iron Binding Capacity 330 ug/dL (250-450) Iron Saturation 17 % (15-34) C-Reactive Protein, Quantitative < 0.5 mg/L (0-3.3) Rheumatoid Factor <10.0 IU/mL (0.0-13.9) Laboratory Tests Test 01/16/19 12:05 Erythrocyte Sedimentation Rate 35 (0-25) Iron Level 55 ug/dL (50-170) Total Iron Binding Capacity 330 ug/dL (250-450) Iron Saturation 17 % (15-34) C-Reactive Protein, Quantitative < 0.5 mg/L (0-3.3) Rheumatoid Factor <10.0 IU/mL (0.0-13.9) Medications Current Medications Sodium Chloride 1,000 ml @ 100 mls/hr Q10H IV Last administered on 01/13/19 13:35; Start 01/13/19 at 13:06; Stop 01/13/19 at 23:05; Status DC Albuterol Sulfate (Ventolin Neb Soln) 2.5 mg PRN Q6HRS PRN INH SHORTNESS OF BREATH Last administered on 01/14/19 03:21; Start 01/13/19 at 19:00 Amitriptyline HCl (Elavil) 60 mg QHS PO Last administered on 01/16/19 21:01; Start 01/13/19 at 21:00 Clonidine HCl (Catapres) 0.3 mg BID PO Last administered on 01/16/19 21:01; Start 01/13/19 at 21:00 Labetalol HCl (Trandate) 200 mg BID PO Last administered on 01/16/19 21:01; Start 01/13/19 at 21:00 Oxycodone/ Acetaminophen (Percocet 7.5/ 325) 2 tab PRN TID PRN PO SEVERE PAIN Last administered on 01/16/19 17:53; Start 01/13/19 at 19:00 Polyethylene Glycol (miraLAX PACKET) 17 gm DAILY PO Last administered on 01/14/19 09:05; Start 01/14/19 at 09:00 Diclofenac Sodium (Voltaren) 75 mg BID PO Last administered on 01/16/19 21:01; Start 01/13/19 at 21:00 Glimepiride (Amaryl) 4 mg DAILYWBKFT PO Last administered on 01/16/19 09:39; Start 01/14/19 at 08:00 Atorvastatin Calcium (Lipitor) 10 mg QHS PO Last administered on 9/14/19at 21:01; Start 01/13/19 at 21:00 Pregabalin (Lyrica) 100 mg BID PO Last administered on 01/16/19at 21:01; Start 01/13/19 at 21:00 Prochlorperazine Maleate (Compazine) 10 mg PRN Q8HRS PRN PO NAUSEA/VOMITING; Start 01/13/19 at 19:15 Sodium Chloride 1,000 ml @ 75 mls/hr 1X ONCE IV Last administered on 01/14/19at 14:09; Start 01/14/19 at 12:30; Stop 01/15/19 at 01:49; Status DC Enoxaparin Sodium (Lovenox 40mg Syringe) 40 mg Q24H SQ Last administered on 01/16/19at 13:05; Start 01/16/19 at 12:00 Active Scripts Active Miralax (Polyethylene Glycol 3350) 17 Gm Powd.pack 1 Packet PO DAILY Lyrica (Pregabalin) 100 Mg Capsule 1 Cap PO BID 30 Days Reported Percocet 7.5-325 Mg Tablet (Oxycodone/Acetaminophen) 1 Each Tablet 2 Tab PO PRN TID PRN Proair Hfa Inhaler (Albuterol Sulfate) 8.5 Gm Hfa.aer.ad 2 Puff INH PRN Q6HRS PRN Amitriptyline Hcl 10 Mg Tablet 6 Tab PO QHS Glimepiride 4 Mg Tablet 1 Tab PO DAILYWBKFT Compazine (Prochlorperazine Maleate) 10 Mg Tablet 10 Mg PO PRN Q8HRS PRN Diclofenac Sodium 75 Mg Tablet.dr 1 Tab PO BID Pravastatin Sodium 40 Mg Tablet 1 Tab PO QHS Clonidine Hcl 0.3 Mg Tablet 1 Tab PO BID Labetalol Hcl 200 Mg Tablet 1 Tab PO BID Vitals/I & O Vital Sign - Last 24 Hours 01/16/19 01/16/19 01/16/19 01/16/19 09:39 09:39 09:39 11:00 Temp 98.9 98.9 Pulse 62 62 59 Resp 20 16 B/P (MAP) 125/73 125/73 132/75 (94) Pulse Ox 93 98 O2 Delivery Room Air Room Air 01/16/19 01/16/19 01/16/19 01/16/19 12:48 15:00 17:53 19:00 Temp 98.7 98.7 98.7 98.7 Pulse 63 64 Resp 16 18 18 B/P (MAP) 131/63 (85) 150/84 (106) Pulse Ox 98 98 94 98 O2 Delivery Room Air Room Air Room Air Room Air 01/16/19 01/16/19 01/16/19 01/16/19 20:00 20:55 21:01 21:01 Pulse 63 63 B/P (MAP) 131/63 131/63 Pulse Ox 94 O2 Delivery Room Air Room Air 01/16/19 01/17/19 01/17/19 22:00 03:00 07:00 Temp 99.5 99.2 98.9 99.5 99.2 98.9 Pulse 62 60 59 Resp 18 18 16 B/P (MAP) 136/81 (99) 125/73 (90) 135/63 (87) Pulse Ox 97 98 97 O2 Delivery Room Air Room Air Room Air Intake and Output 01/16/19 01/16/19 01/17/19 14:59 22:59 06:59 Intake Total 600 ml 350 ml 120 ml Output Total 850 ml Balance 600 ml 350 ml -730 ml BLAYNE MILES MD Jan 17, 2019 08:33
[2019-01-17] MEDS: POLYETHYLENE GLYCOL 3350 17 GM PACKET. PO SCH (09:00)
[2019-01-17] MEDS: cloNIDine HCL 0.3 MG TABLET PO SCH ×2 (09:25→20:36)
[2019-01-17] MEDS: LABETALOL HCL 200 MG TABLET PO SCH ×2 (09:25→20:38)
[2019-01-17] MEDS: DICLOFENAC SODIUM 25 MG TABLET.DR PO SCH ×2 (09:25→20:31)
[2019-01-17] MEDS: GLIMEPIRIDE 2 MG TABLET. PO SCH (09:26)
[2019-01-17] MEDS: PREGABALIN 50 MG CAPSULE PO SCH ×2 (09:26→20:31)
[2019-01-17] MEDS: oxyCODONE/APAP 7.5/325 1 TAB TABLET PO PRN ×2 (09:28→20:30)
[2019-01-17 11:00] VITALS: BP 121/77
[2019-01-17] MEDS: ENOXAPARIN 40 MG/0.4 ML SYRINGE. SQ SCH (12:43)
[2019-01-17 15:17] VITALS: BP 113/68
--- NOTE | 2019-01-17 17:23 | PDOC ---
PROGRESS NOTES Assessment Problems Medical Problems: (1) Generalized weakness Status: Acute She con't to have leg weakness. Bloodwoork with RA, ESR TSH all neg, BIANCA pending. Plan Agree with dining room busser placement. Subjective My legs are still weak. Why do you think my knees hurt? Objective Vital Signs Date Time Temp Pulse Resp B/P (MAP) Pulse Ox O2 Delivery O2 Flow Rate FiO2 01/17/19 15:17 98.5 59 18 113/68 (83) 97 Room Air 98.5 Intake and Output 01/17/19 07:00 Intake Total 1070 ml Output Total 850 ml Balance 220 ml Intake Oral 1070 ml Output Urine Total 850 ml # Voids 2 Review of Relevant I have reviewed the following items jorge luis (where applicable) has been applied. Labs Laboratory Tests Test 01/16/19 04:30 01/16/19 12:05 White Blood Count 6.3 x10^3/uL (4.0-11.0) Red Blood Count 3.64 x10^6/uL (3.50-5.40) Hemoglobin 11.4 g/dL (12.0-15.5) Hematocrit 35.2 % (36.0-47.0) Mean Corpuscular Volume 97 fL (79-100) Mean Corpuscular Hemoglobin 31 pg (25-35) Mean Corpuscular Hemoglobin Concent 33 g/dL (31-37) Red Cell Distribution Width 13.1 % (11.5-14.5) Platelet Count 222 x10^3/uL (140-400) Neutrophils (%) (Auto) 43 % (31-73) Lymphocytes (%) (Auto) 42 % (24-48) Monocytes (%) (Auto) 10 % (0-9) Eosinophils (%) (Auto) 3 % (0-3) Basophils (%) (Auto) 1 % (0-3) Neutrophils # (Auto) 2.7 x10^3/uL (1.8-7.7) Lymphocytes # (Auto) 2.7 x10^3/uL (1.0-4.8) Monocytes # (Auto) 0.7 x10^3/uL (0.0-1.1) Eosinophils # (Auto) 0.2 x10^3/uL (0.0-0.7) Basophils # (Auto) 0.1 x10^3/uL (0.0-0.2) Sodium Level 140 mmol/L (136-145) Potassium Level 4.3 mmol/L (3.5-5.1) Chloride Level 106 mmol/L (98-107) Carbon Dioxide Level 28 mmol/L (21-32) Anion Gap 6 (6-14) Blood Urea Nitrogen 15 mg/dL (7-20) Creatinine 1.0 mg/dL (0.6-1.0) Estimated GFR (Cockcroft-Gault) 65.6 BUN/Creatinine Ratio 15 (6-20) Glucose Level 178 mg/dL (70-99) Calcium Level 10.2 mg/dL (8.5-10.1) Total Bilirubin 0.3 mg/dL (0.2-1.0) Aspartate Amino Transf (AST/SGOT) 12 U/L (15-37) Alanine Aminotransferase (ALT/SGPT) 18 U/L (14-59) Alkaline Phosphatase 93 U/L (46-116) Total Protein 6.9 g/dL (6.4-8.2) Albumin 3.0 g/dL (3.4-5.0) Albumin/Globulin Ratio 0.8 (1.0-1.7) Erythrocyte Sedimentation Rate 35 (0-25) Iron Level 55 ug/dL (50-170) Total Iron Binding Capacity 330 ug/dL (250-450) Iron Saturation 17 % (15-34) C-Reactive Protein, Quantitative < 0.5 mg/L (0-3.3) Rheumatoid Factor <10.0 IU/mL (0.0-13.9) Medications Current Medications Sodium Chloride 1,000 ml @ 100 mls/hr Q10H IV Last administered on 01/13/19at 13:35; Start 01/13/19 at 13:06; Stop 01/13/19 at 23:05; Status DC Albuterol Sulfate (Ventolin Neb Soln) 2.5 mg PRN Q6HRS PRN INH SHORTNESS OF BREATH Last administered on 01/14/19at 03:21; Start 01/13/19 at 19:00 Amitriptyline HCl (Elavil) 60 mg QHS PO Last administered on 01/16/19at 21:01; Start 01/13/19 at 21:00 Clonidine HCl (Catapres) 0.3 mg BID PO Last administered on 01/17/19 09:28; Start 01/13/19 at 21:00 Labetalol HCl (Trandate) 200 mg BID PO Last administered on 01/17/19 09:28; Start 01/13/19 at 21:00 Oxycodone/ Acetaminophen (Percocet 7.5/ 325) 2 tab PRN TID PRN PO SEVERE PAIN Last administered on 01/17/19 09:28; Start 01/13/19 at 19:00 Polyethylene Glycol (miraLAX PACKET) 17 gm DAILY PO Last administered on 01/14/19 09:05; Start 01/14/19 at 09:00 Diclofenac Sodium (Voltaren) 75 mg BID PO Last administered on 01/17/19 09:28; Start 01/13/19 at 21:00 Glimepiride (Amaryl) 4 mg DAILYWBKFT PO Last administered on 01/17/19 09:28; Start 01/14/19 at 08:00 Atorvastatin Calcium (Lipitor) 10 mg QHS PO Last administered on 01/16/19 21:01; Start 01/13/19 at 21:00 Pregabalin (Lyrica) 100 mg BID PO Last administered on 01/17/19 09:28; Start 01/13/19 at 21:00 Prochlorperazine Maleate (Compazine) 10 mg PRN Q8HRS PRN PO NAUSEA/VOMITING; Start 01/13/19 at 19:15 Sodium Chloride 1,000 ml @ 75 mls/hr 1X ONCE IV Last administered on 01/14/19 14:09; Start 01/14/19 at 12:30; Stop 01/15/19 at 01:49; Status DC Enoxaparin Sodium (Lovenox 40mg Syringe) 40 mg Q24H SQ Last administered on 01/17/19 12:44; Start 01/16/19 at 12:00 Active Scripts Active Miralax (Polyethylene Glycol 3350) 17 Gm Powd.pack 1 Packet PO DAILY Lyrica (Pregabalin) 100 Mg Capsule 1 Cap PO BID 30 Days Reported Percocet 7.5-325 Mg Tablet (Oxycodone/Acetaminophen) 1 Each Tablet 2 Tab PO PRN TID PRN Proair Hfa Inhaler (Albuterol Sulfate) 8.5 Gm Hfa.aer.ad 2 Puff INH PRN Q6HRS PRN Amitriptyline Hcl 10 Mg Tablet 6 Tab PO QHS Glimepiride 4 Mg Tablet 1 Tab PO DAILYWBKFT Compazine (Prochlorperazine Maleate) 10 Mg Tablet 10 Mg PO PRN Q8HRS PRN Diclofenac Sodium 75 Mg Tablet.dr 1 Tab PO BID Pravastatin Sodium 40 Mg Tablet 1 Tab PO QHS Clonidine Hcl 0.3 Mg Tablet 1 Tab PO BID Labetalol Hcl 200 Mg Tablet 1 Tab PO BID Vitals/I & O Vital Sign - Last 24 Hours 01/16/19 01/16/19 01/16/19 01/16/19 17:53 19:00 20:00 20:55 Temp 98.7 98.7 Pulse 64 Resp 18 18 B/P (MAP) 150/84 (106) Pulse Ox 94 98 94 O2 Delivery Room Air Room Air Room Air Room Air 01/16/19 01/16/19 01/16/19 01/17/19 21:01 21:01 22:00 03:00 Temp 99.5 99.2 99.5 99.2 Pulse 63 63 62 60 Resp 18 18 B/P (MAP) 131/63 131/63 136/81 (99) 125/73 (90) Pulse Ox 97 98 O2 Delivery Room Air Room Air 01/17/19 01/17/19 01/17/19 01/17/19 07:00 08:00 09:28 09:28 Temp 98.9 98.9 Pulse 59 59 59 Resp 16 B/P (MAP) 135/63 (87) 135/63 135/63 Pulse Ox 97 O2 Delivery Room Air Room Air 01/17/19 01/17/19 01/17/19 01/17/19 09:28 11:00 12:44 15:17 Temp 98.8 98.5 98.8 98.5 Pulse 65 59 Resp 20 16 19 18 B/P (MAP) 121/77 (92) 113/68 (83) Pulse Ox 93 97 93 97 O2 Delivery Room Air Room Air Room Air Room Air Intake and Output 01/16/19 01/16/19 01/17/19 15:00 23:00 07:00 Intake Total 600 ml 350 ml 120 ml Output Total 850 ml Balance 600 ml 350 ml -730 ml SOCORRO CAMPOS MD Jan 17, 2019 17:23
[2019-01-17 19:00] VITALS: BP 140/79
[2019-01-17] MEDS: ATORVASTATIN CALCIUM 10 MG TABLET. PO SCH (20:31)
[2019-01-17] MEDS: AMITRIPTYLINE HCL 10 MG TABLET. PO SCH (20:36)
[2019-01-17 23:00] VITALS: BP 124/71
[2019-01-18 03:00] VITALS: BP 133/76
[2019-01-18 07:00] VITALS: BP 153/84
--- NOTE | 2019-01-18 08:11 | PDOC ---
PROGRESS NOTES Chief Complaint Chief Complaint A/P: Multiple falls - was just discharged with home health previously, to ED multiple visits for falls. 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 - no sonographic evidence of deep venous thrombosis involving the visualized deep venous structures of either lower extremity. Failure to thrive MILD HYPERNATREMIA - hypovolemic VOLUME DEPLETED, dehydration Gait instability Multilevel degenerative change throughout the lumbar spine and lower thoracic spine, resulting in stenosis - Grade 1 anterolisthesis of L5 on S1 and retrolisthesis of L2 on L3. ELEVATED ESR Bilateral leg weakness Anemia - likely of chronic disease Plan: Consulted pediatric social worker for possible long-term care placement or residential Await lower extremity Doppler report. Home meds, DVT prophylaxis, PT, OT, 27 MIN PT EXAM, CHART REVIEW, > 50% OF TIME SPENT WITH EXAM, CHART REVIEW , PT CARE COORDINATION History of Present Illness History of Present Illness Ms Massey is a 73yo F w/ PMHx Arthritis, Asthma, Diabetes-Type II, Heart Disease, Hypertension, TIA, neuropathy who was seen multiple times recently in ED for falls and bilateral LE weakness. She had been released from the hospital for very similar things twice this year. She went to SNF this last stay and went home, notes she has declined even further since then and is now unable to walk at all. C/o bilateral hamstring pain and weakness and pain on the lateral aspect of both knees. No CP or SOB Vitals Vitals Vital Signs Date Time Temp Pulse Resp B/P (MAP) Pulse Ox O2 Delivery O2 Flow Rate FiO2 01/18/19 03:00 98.5 64 18 133/76 (95) 98 Room Air 98.5 Physical Exam Physical Exam GENERAL: No apparent distress. Alert and oriented. HEENT: Head is normocephalic, atraumatic, pupils were equally round and reactive to light and accommodation. NECK: Supple, no JVD, no thyromegaly was noted. LUNGS: Clear to auscultation in all lung rabago without rhonchi or wheezing. HEART: RRR, S1, S2 present. Peripheral pulses intact, no obvious murmurs were noted. ABDOMEN: Soft, nontender. Positive bowel sounds no organomegaly, normal bowel sounds. EXTREMITIES: Without any cyanosis, clubbing, or edema. Pedal pulses intact, Homans sign is negative. NEUROLOGIC: She is very weak. PSYCHIATRIC: Normal affect, normal mood. Stable. SKIN: No ulcerations or rashes, good skin turgor, no jaundice. VASCULAR: Good capillary refill, neurovascular bundle appears to be intact. MUSCULOSKELETAL: General: Alert, Oriented X3, Cooperative, No acute distress Heart: Regular rate, Normal S1, Normal S2, No murmurs Lungs: Clear Abdomen: Normal bowel sounds, Soft Extremities: No cyanosis, No edema Skin: No significant lesion Assessment and Plan Assessmemt and Plan Problems Medical Problems: (1) Generalized weakness Status: Acute Comment Review of Relevant I have reviewed the following items jorge luis (where applicable) has been applied. Labs Laboratory Tests Test 01/16/19 12:05 Erythrocyte Sedimentation Rate 35 (0-25) Iron Level 55 ug/dL (50-170) Total Iron Binding Capacity 330 ug/dL (250-450) Iron Saturation 17 % (15-34) C-Reactive Protein, Quantitative < 0.5 mg/L (0-3.3) Rheumatoid Factor <10.0 IU/mL (0.0-13.9) Medications Current Medications Sodium Chloride 1,000 ml @ 100 mls/hr Q10H IV Last administered on 01/13/19at 13:35; Start 01/13/19 at 13:06; Stop 01/13/19 at 23:05; Status DC Albuterol Sulfate (Ventolin Neb Soln) 2.5 mg PRN Q6HRS PRN INH SHORTNESS OF BREATH Last administered on 01/14/19at 03:21; Start 01/13/19 at 19:00 Amitriptyline HCl (Elavil) 60 mg QHS PO Last administered on 01/17/19at 20:38; Start 01/13/19 at 21:00 Clonidine HCl (Catapres) 0.3 mg BID PO Last administered on 01/17/19at 20:38; Start 01/13/19 at 21:00 Labetalol HCl (Trandate) 200 mg BID PO Last administered on 01/17/19 20:38; Start 01/13/19 at 21:00 Oxycodone/ Acetaminophen (Percocet 7.5/ 325) 2 tab PRN TID PRN PO SEVERE PAIN Last administered on 01/17/19 20:38; Start 01/13/19 at 19:00 Polyethylene Glycol (miraLAX PACKET) 17 gm DAILY PO Last administered on 01/14/19 09:05; Start 01/14/19 at 09:00 Diclofenac Sodium (Voltaren) 75 mg BID PO Last administered on 01/17/19 20:38; Start 01/13/19 at 21:00 Glimepiride (Amaryl) 4 mg DAILYWBKFT PO Last administered on 01/17/19 09:28; Start 01/14/19 at 08:00 Atorvastatin Calcium (Lipitor) 10 mg QHS PO Last administered on 01/17/19 20:38; Start 01/13/19 at 21:00 Pregabalin (Lyrica) 100 mg BID PO Last administered on 01/17/19 20:38; Start 01/13/19 at 21:00 Prochlorperazine Maleate (Compazine) 10 mg PRN Q8HRS PRN PO NAUSEA/VOMITING Last administered on 01/18/19 03:09; Start 01/13/19 at 19:15 Sodium Chloride 1,000 ml @ 75 mls/hr 1X ONCE IV Last administered on 01/14/19 14:09; Start 01/14/19 at 12:30; Stop 01/15/19 at 01:49; Status DC Enoxaparin Sodium (Lovenox 40mg Syringe) 40 mg Q24H SQ Last administered on 01/17/19 12:44; Start 01/16/19 at 12:00 Active Scripts Active Miralax (Polyethylene Glycol 3350) 17 Gm Powd.pack 1 Packet PO DAILY Lyrica (Pregabalin) 100 Mg Capsule 1 Cap PO BID 30 Days Reported Percocet 7.5-325 Mg Tablet (Oxycodone/Acetaminophen) 1 Each Tablet 2 Tab PO PRN TID PRN Proair Hfa Inhaler (Albuterol Sulfate) 8.5 Gm Hfa.aer.ad 2 Puff INH PRN Q6HRS PRN Amitriptyline Hcl 10 Mg Tablet 6 Tab PO QHS Glimepiride 4 Mg Tablet 1 Tab PO DAILYWBKFT Compazine (Prochlorperazine Maleate) 10 Mg Tablet 10 Mg PO PRN Q8HRS PRN Diclofenac Sodium 75 Mg Tablet.dr 1 Tab PO BID Pravastatin Sodium 40 Mg Tablet 1 Tab PO QHS Clonidine Hcl 0.3 Mg Tablet 1 Tab PO BID Labetalol Hcl 200 Mg Tablet 1 Tab PO BID Vitals/I & O Vital Sign - Last 24 Hours 01/17/19 01/17/19 01/17/19 01/17/19 09:28 09:28 09:28 11:00 Temp 98.8 98.8 Pulse 59 59 65 Resp 20 16 B/P (MAP) 135/63 135/63 121/77 (92) Pulse Ox 93 97 O2 Delivery Room Air Room Air 01/17/19 01/17/19 01/17/19 01/17/19 12:44 15:17 19:00 20:12 Temp 98.5 99.1 98.5 99.1 Pulse 59 65 Resp 19 18 18 B/P (MAP) 113/68 (83) 140/79 (99) Pulse Ox 93 97 99 O2 Delivery Room Air Room Air Room Air Room Air 01/17/19 01/17/19 01/17/19 01/17/19 20:38 20:38 20:38 21:38 Pulse 65 65 Resp 18 18 B/P (MAP) 140/79 140/79 Pulse Ox 97 97 O2 Delivery Room Air Room Air 01/17/19 01/18/19 23:00 03:00 Temp 97.7 98.5 97.7 98.5 Pulse 68 64 Resp 18 18 B/P (MAP) 124/71 (88) 133/76 (95) Pulse Ox 96 98 O2 Delivery Room Air Room Air Intake and Output 01/17/19 01/17/19 01/18/19 14:59 22:59 06:59 Intake Total 180 ml Output Total 300 ml Balance 180 ml -300 ml LALO SMITH MD Jan 18, 2019 08:11
[2019-01-18] MEDS ORDERED: DEXTROSE 50% 25 GM / 50ML DISP.SYRIN. IV PRN (08:15)
[2019-01-18] MEDS ORDERED: IV DEXTROSE 5% 250 ML BAG. IV PRN (08:15)
[2019-01-18] MEDS: POLYETHYLENE GLYCOL 3350 17 GM PACKET. PO SCH (09:00)
--- NOTE | 2019-01-18 10:00 | RAD ---
Bilateral lower extremity arterial ultrasound History: Claudication symptoms, diabetes, weakness Findings: Multiple grayscale, color, and duplex spectral analysis sonographic images were acquired of the lower extremity arteries bilaterally. There are no previous similar exams. No vessel occlusion is demonstrated. There is relative increased velocity of the left common femoral artery, although no significant stenosis demonstrated on color images in this region. There is minimal plaque bilaterally. There are triphasic and biphasic waveforms bilaterally. Velocities in cm/sec: RIGHT Common femoral artery 117 Profunda femoris artery 90 Proximal SFA 102 Mid SFA 78 Distal SFA 72 Popliteal artery 70 Posterior tibial artery 57 proximally and 65 distally Peroneal artery 57 Anterior tibial artery 68 Dorsalis pedis artery 125 LEFT: Common femoral artery 150 Profunda femoris artery 87 Proximal SFA 104 Mid SFA 96 Distal SFA 60 Popliteal artery 77 Posterior tibial artery 49 proximally and 70 distally Peroneal artery 62 Anterior tibial artery 71 Dorsalis pedis artery 124 Impression: 1. There is mild plaque bilaterally. No significant stenosis or vessel occlusion is demonstrated. Electronically signed by: Justin Calix MD (01/18/2019 9:57 AM) [facility]
[2019-01-18] MEDS: DICLOFENAC SODIUM 25 MG TABLET.DR PO SCH ×2 (10:25→20:51)
[2019-01-18] MEDS: oxyCODONE/APAP 7.5/325 1 TAB TABLET PO PRN ×2 (10:25→20:50)
[2019-01-18] MEDS: PREGABALIN 50 MG CAPSULE PO SCH ×2 (10:26→20:52)
[2019-01-18] MEDS: cloNIDine HCL 0.3 MG TABLET PO SCH ×2 (10:26→20:51)
[2019-01-18] MEDS: LABETALOL HCL 200 MG TABLET PO SCH ×2 (10:26→20:50)
[2019-01-18] MEDS: GLIMEPIRIDE 2 MG TABLET. PO SCH (10:27)
--- NOTE | 2019-01-18 10:36 | CARD ---
MR#: [id number] Date of Study: 01/18/2019 Ordering Physician: BLAYNE MILES, Referring Physician: BLAYNE MILES, Tech: Angelina Nelson RDCS APPROVED REPORT EXAM: Two-dimensional and M-mode echocardiogram with Doppler and color Doppler. Other Information Quality : Fair INDICATION Hypertension/HCVD 2D DIMENSIONS RVDd2.9 (2.9-3.5cm)Left Atrium(2D)3.3 (1.6-4.0cm) IVSd1.4 (0.7-1.1cm)Aortic Root(2D)3.1 (2.0-3.7cm) LVDd4.8 (3.9-5.9cm)LVOT Diameter2.2 (1.8-2.4cm) PWd1.1 (0.7-1.1cm)LVDs3.5 (2.5-4.0cm) FS (%) 27.7 %SV58.0 ml LVEF(%)53.7 (>50%) Aortic Valve AoV Peak Tarun.110.0cm/sAoV VTI20.2cm AO Peak GR.4.8mmHgLVOT Peak Tarun.74.7cm/s LVOT VTI 16.56cmAO Mean GR.3mmHg OMAR (VMAX)2.41uo6HLR (VTI)3.12cm2 Mitral Valve MV E Tcygqmmg65.5cm/sMV DECEL [id number] MV A Twmmbeoh37.2cm/sMV OUC02ux E/A Ratio0.6MVA (PHT)2.95cm2 TDI E/Lateral E'8.8E/Medial E'12.4 Tricuspid Valve TR P. Jleiosbp116ep/sRAP [id number] TR Peak Gr.13elCiSWIR90aoMg Pulmonary Vein S1 Menjhypy87.1cm/sD2 Vclzobip53.8cm/s LEFT VENTRICLE The left ventricle is normal size. There is mild to moderate asymmetric septal left ventricular hyper trophy. The left ventricular systolic function is normal and the ejection fraction is within normal r estuardo. The Ejection Fraction is 55-60%. There is normal LV segmental wall motion. Transmitral Doppler flow pattern is Grade I-abnormal relaxation pattern. RIGHT VENTRICLE The right ventricle is normal size. The right ventricular systolic function is normal. ATRIA The left atrium size is normal. The right atrium size is normal. The interatrial septum is intact wit h no evidence for an atrial septal defect or patent foramen ovale as noted on 2-D or Doppler imaging. AORTIC VALVE The aortic valve is calcified but opens well. Doppler and Color Flow revealed no significant aortic r egurgitation. There is no significant aortic valvular stenosis. MITRAL VALVE The mitral valve is calcified but opens well. Mitral annular calcification is mild. There is no evide nce of mitral valve prolapse. There is no mitral valve stenosis. Doppler and Color-flow revealed trac e mitral regurgitation. TRICUSPID VALVE The tricuspid valve is normal in structure and function. Doppler and Color Flow revealed mild tricusp id regurgitation. The PA pressure was estimated at 36 mmHg. There is no tricuspid valve stenosis. PULMONIC VALVE The pulmonic valve is not well visualized. Doppler and Color Flow revealed no pulmonic valvular regur gitation. There is no pulmonic valvular stenosis. GREAT VESSELS The aortic root is normal in size. The ascending aorta is mildly dilated at 3.4 cm. The IVC is normal in size and collapses >50% with inspiration. PERICARDIAL EFFUSION There is no evidence of significant pericardial effusion. Critical Notification Critical Value: No <Conclusion> The left ventricular systolic function is normal and the ejection fraction is within normal range. Th e Ejection Fraction is 55-60%. There is normal LV segmental wall motion. Doppler and Color Flow revealed mild tricuspid regurgitation. The PA pressure was estimated at 36 mmH g. The ascending aorta is mildly dilated at 3.4 cm. Signed by : Ben Figueroa, Electronically Approved : 01/18/2019 10:36:16
[2019-01-18 11:00] VITALS: BP 153/76
--- NOTE | 2019-01-18 11:05 | PDOC ---
PROGRESS NOTES Assessment Problems Medical Problems: (1) Generalized weakness Status: Acute Recurrent hospitalizations for weakness, neurology consulted for the first time this hospital Picture of peripheral neuropathy, most likely from diabetes, lab work for other causes negative or pending No evidence of stroke, myelopathy, polyradiculopathy, neuromuscular junction disease Lumbar spondylosis Degenerative joint disease of both knees, ankles, also has rheumatoid arthritis Medical problems: diabetes mellitus, hypertension, coronary artery disease, asthmatic bronchitis, hyperlipidemia and obesity Plan Await rest of labs, I added on some. CT cervical spine Lovenox Needs SNU rehabilitation Subjective Has neck, back, and knee pain Objective Vital Signs Date Time Temp Pulse Resp B/P (MAP) Pulse Ox O2 Delivery O2 Flow Rate FiO2 01/18/19 10:27 68 153/84 01/18/19 07:00 98.2 18 99 Room Air 98.2 Intake and Output 01/18/19 06:59 Intake Total 180 ml Output Total 300 ml Balance -120 ml Intake Oral 180 ml Output Urine Total 300 ml # Voids 3 # Bowel Movements 2 PHYSICAL EXAM Alert. Oriented to time, place and person. PERRL. EOMI. CN: no focal findings. Muscle tone: normal. Muscle strength: 4/5 DTR: 1+ arms, 0+ l;egs Plantar reflex: flexor Gait: not examined in bed. Sensory exam: stocking pinprick loss. No cerebellar signs elicited. Review of Relevant I have reviewed the following items jorge luis (where applicable) has been applied. Labs TSH 0.712, 01/13/19 Laboratory Tests Test 01/16/19 12:05 01/18/19 08:44 Erythrocyte Sedimentation Rate 35 (0-25) Iron Level 55 ug/dL (50-170) Total Iron Binding Capacity 330 ug/dL (250-450) Iron Saturation 17 % (15-34) C-Reactive Protein, Quantitative < 0.5 mg/L (0-3.3) Rheumatoid Factor <10.0 IU/mL (0.0-13.9) Glucose (Fingerstick) 131 mg/dL (70-99) Laboratory Tests Test 01/18/19 08:44 Glucose (Fingerstick) 131 mg/dL (70-99) Medications Current Medications Sodium Chloride 1,000 ml @ 100 mls/hr Q10H IV Last administered on 01/13/19at 13:35; Start 01/13/19 at 13:06; Stop 01/13/19 at 23:05; Status DC Albuterol Sulfate (Ventolin Neb Soln) 2.5 mg PRN Q6HRS PRN INH SHORTNESS OF BREATH Last administered on 01/14/19 03:21; Start 01/13/19 at 19:00 Amitriptyline HCl (Elavil) 60 mg QHS PO Last administered on 01/17/19 20:38; Start 01/13/19 at 21:00 Clonidine HCl (Catapres) 0.3 mg BID PO Last administered on 01/18/19 10:27; Start 01/13/19 at 21:00 Labetalol HCl (Trandate) 200 mg BID PO Last administered on 01/18/19 10:27; Start 01/13/19 at 21:00 Oxycodone/ Acetaminophen (Percocet 7.5/ 325) 2 tab PRN TID PRN PO SEVERE PAIN Last administered on 01/18/19 10:27; Start 01/13/19 at 19:00 Polyethylene Glycol (miraLAX PACKET) 17 gm DAILY PO Last administered on 01/14/19 09:05; Start 01/14/19 at 09:00 Diclofenac Sodium (Voltaren) 75 mg BID PO Last administered on 01/18/19 10:27; Start 01/13/19 at 21:00 Glimepiride (Amaryl) 4 mg DAILYWBKFT PO Last administered on 01/18/19 10:27; Start 01/14/19 at 08:00 Atorvastatin Calcium (Lipitor) 10 mg QHS PO Last administered on 01/17/19 20 :38; Start 01/13/19 at 21:00 Pregabalin (Lyrica) 100 mg BID PO Last administered on 01/18/19 10:27; Start 01/13/19 at 21:00 Prochlorperazine Maleate (Compazine) 10 mg PRN Q8HRS PRN PO NAUSEA/VOMITING Last administered on 01/18/19 03:09; Start 01/13/19 at 19:15 Sodium Chloride 1,000 ml @ 75 mls/hr 1X ONCE IV Last administered on 01/14/19 14:09; Start 01/14/19 at 12:30; Stop 01/15/19 at 01:49; Status DC Enoxaparin Sodium (Lovenox 40mg Syringe) 40 mg Q24H SQ Last administered on 01/17/19at 12:44; Start 01/16/19 at 12:00 Insulin Human Lispro (HumaLOG) 0-7 UNITS TIDWMEALHC SQ ; Start 01/18/19 at 12:00 Dextrose (Dextrose 50%-Water Syringe) 12.5 gm PRN Q15MIN PRN IV SEE COMMENTS; Start 01/18/19 at 08:15 Dextrose 250 ml PRN Q15MIN PRN IV SEE COMMENTS; Start 01/18/19 at 08:15; Status UNV Active Scripts Active Miralax (Polyethylene Glycol 3350) 17 Gm Powd.pack 1 Packet PO DAILY Lyrica (Pregabalin) 100 Mg Capsule 1 Cap PO BID 30 Days Reported Percocet 7.5-325 Mg Tablet (Oxycodone/Acetaminophen) 1 Each Tablet 2 Tab PO PRN TID PRN Proair Hfa Inhaler (Albuterol Sulfate) 8.5 Gm Hfa.aer.ad 2 Puff INH PRN Q6HRS PRN Amitriptyline Hcl 10 Mg Tablet 6 Tab PO QHS Glimepiride 4 Mg Tablet 1 Tab PO DAILYWBKFT Compazine (Prochlorperazine Maleate) 10 Mg Tablet 10 Mg PO PRN Q8HRS PRN Diclofenac Sodium 75 Mg Tablet.dr 1 Tab PO BID Pravastatin Sodium 40 Mg Tablet 1 Tab PO QHS Clonidine Hcl 0.3 Mg Tablet 1 Tab PO BID Labetalol Hcl 200 Mg Tablet 1 Tab PO BID Vitals/I & O Vital Sign - Last 24 Hours 01/17/19 01/17/19 01/17/19 01/17/19 11:00 12:44 15:17 19:00 Temp 98.8 98.5 99.1 98.8 98.5 99.1 Pulse 65 59 65 Resp 16 19 18 18 B/P (MAP) 121/77 (92) 113/68 (83) 140/79 (99) Pulse Ox 97 93 97 99 O2 Delivery Room Air Room Air Room Air Room Air 01/17/19 01/17/19 01/17/19 01/17/19 20:12 20:38 20:38 20:38 Pulse 65 65 Resp 18 B/P (MAP) 140/79 140/79 Pulse Ox 97 O2 Delivery Room Air Room Air 01/17/19 01/17/19 01/18/19 01/18/19 21:38 23:00 03:00 07:00 Temp 97.7 98.5 98.2 97.7 98.5 98.2 Pulse 68 64 68 Resp 18 18 18 18 B/P (MAP) 124/71 (88) 133/76 (95) 153/84 (107) Pulse Ox 97 96 98 99 O2 Delivery Room Air Room Air Room Air Room Air 01/18/19 01/18/19 10:27 10:27 Pulse 68 68 B/P (MAP) 153/84 153/84 Intake and Output 01/17/19 01/17/19 01/18/19 14:59 22:59 06:59 Intake Total 180 ml Output Total 300 ml Balance 180 ml -[address] HEAD WO CONTRAST History: Falls, weakness Comparison: None. Technique: Noncontrast CT imaging was performed of the head. Exposure: One or more of the following individualized dose reduction techniques were utilized for this examination: 1. Automated exposure control 2. Adjustment of the mA and/or kV according to patient size 3. Use of iterative reconstruction technique. Findings: No acute extra-axial or parenchymal hemorrhage is identified. Calvarium appears somewhat diffusely thickened, some areas which appear more sclerotic such as on the right. There a few small more defined sclerotic foci There is no significant intra-axial mass effect, midline shift, or extra-axial fluid collection. The lazo-white differentiation of the major vascular territories is preserved. The ventricles, sulci, and cisterns are within normal limits in size and configuration. The mastoid air cells and the visualized paranasal sinuses are aerated. No acute calvarial abnormality is identified. There is atherosclerotic calcification of the carotid siphons bilaterally. Impression: 1. No acute intracranial abnormality is identified. 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 2. There is diffuse calvarial thickening, some areas of relative increased sclerosis on the right, consideration of sequela of Paget's disease. Lumbar spine CT without contrast, 11/30/18. HISTORY: Pain. TECHNIQUE: Computed tomographic images of the lumbar spine were obtained without contrast. Multiplanar reformatting was performed. *One or more of the following individualized dose reduction techniques were utilized for this examination: 1. Automated exposure control. 2. Adjustment of the mA and/or kV according to patient size. 3. Use of iterative reconstruction technique. COMPARISON: Radiographs obtained on the same date. FINDINGS: There is lumbar hyperlordosis. There is a transitional S1 segment with prematurity S1-S2 disc. 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 There is grade 1 anterolisthesis of and L5 on S1, measuring 7 mm. There is 3 mm retrolisthesis of L2 on L3. There is mild lumbar scoliosis. There is degenerative endplate remodeling at all levels. There are several small endplate Schmorl's nodes. There is a vacuum phenomenon within the lower thoracic and lumbar disc spaces. There is suspected bone demineralization. There is no suspicious osseous lesion. There are few incidental osseous hemangiomas. There is bilateral posterior dependent and basilar atelectasis. There is a simple appearing cyst within the upper pole the right kidney measuring 4.5 cm. The gallbladder is surgically absent. At L1-L2, there is a disc bulge. There is mild left facet arthropathy. There is mild bilateral foraminal stenosis. At L2-L3, there is a disc bulge and endplate remodeling. There is mild retrolisthesis. There is mild right facet arthropathy. There is moderate right and mild left foraminal stenosis. There is mild central canal stenosis. At L3-L4, there is a disc bulge and endplate remodeling. There is moderate right and mild left facet arthropathy. There is hypertrophy of the ligamentum flavum. There is moderate right greater than left foraminal stenosis. There is moderate central canal stenosis. At L4-L5, there is a disc bulge. There is mild right and moderate to severe left facet arthropathy. There is moderate to severe right foraminal stenosis. There is mild central canal stenosis. At L5-S1, there is a disc bulge and endplate osteophytosis. There is severe bilateral facet arthropathy. There is grade 1 anterolisthesis. There is severe bilateral foraminal stenosis. There is moderate central canal stenosis. IMPRESSION: 1. Multilevel degenerative change throughout the lumbar spine and lower thoracic spine, resulting in stenosis at the aforementioned levels. 2. Grade 1 anterolisthesis of L5 on S1 and retrolisthesis of L2 on L3. 3. Mild scoliosis. KERVIN ZARAGOZA MD Jan 18, 2019 11:05
[2019-01-18] MEDS: INSULIN LISPRO 300 UNITS/3 ML VIAL. SQ SCH ×3 (12:00→21:00)
--- NOTE | 2019-01-18 12:39 | NUR ---
SW following pt. SW spoke with Pt and pt's daughter, Jolanta via phone. Discussed re PT/OT recommendation for SNU but daughter reported pt became worse after going to SNU last time and Pt also states 'that was no good for me". Jolanta had recently applied to get pt in to [facility] but have not heard back and requested if SW is able to check on status of application. Pt declined SNU at this time and wants to go home to gather her things before the end of the month. Daughter also does not want Pt to go LTC but believes AL is more appropriate for her. Pt states she was using [facility]. Pt's daughter also inquired about a Scooter and SW discussed HH PT are the only ones that can do assessments for scooter at pt's home due to insurance guidelines. Plan 1. SW phoned and faxed referral to [facility]- they will be able to take her back, will need resumption orders, 2. Spoke with JAYESH Wylie at [facility], she has not heard about pt but would look for application to see when they can do assessments, 3. Will continue to follow pt. Anticipate pt will return home with home health if [facility] declines to accept. D/w RN.
[2019-01-18] MEDS: ENOXAPARIN 40 MG/0.4 ML SYRINGE. SQ SCH (13:50)
[2019-01-18 15:00] VITALS: BP 128/76
--- NOTE | 2019-01-18 17:21 | RAD ---
EXAM: Ct Cervical Spine Without Iv Contrast CLINICAL HISTORY: Neck pain, weakness COMPARISON: None available. TECHNIQUE: Helical CT of the cervical spine was performed. Axial, coronal and sagittal reformatted images were also performed. PQRS compliance statement - One or more of the following individualized dose reduction techniques were utilized for this study: 1. Automated exposure control 2. Adjustment of the mA and/or kV according to patient size 3. Use of iterative reconstruction technique FINDINGS: Vertebral body heights are preserved. No evidence for acute fracture. Mild disc height loss at C3-4, C4-5, C5-6 and C6-7. Straightening of the normal cervical lordosis. No spondylolisthesis. 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 C2-C3: Small central disc protrusion results in mild central canal stenosis. C3-C4: Posterior disc osteophyte complex results in mild flattening of the ventral central canal and in conjunction with congenital canal narrowing there is moderate central canal stenosis and mild bilateral neural foraminal narrowing. C4-C5: Posterior disc osteophyte complex with facet degenerative changes superimposed on congenital canal narrowing results in moderate central canal stenosis and bilateral neural foraminal narrowing. C5-C6: Posterior disc osteophyte complex with facet degenerative changes superimposed on congenital canal narrowing results in moderate central canal stenosis and [id number] bilateral neural foraminal narrowing. C6-C7: Posterior disc osteophyte complex with facet degenerative changes results in moderate central canal stenosis and mild right neural foraminal narrowing. C7-T1: No significant central canal stenosis or neural foraminal narrowing. Bilateral thyroid nodules are seen, left thyroid nodule measures up to 3.3 cm. IMPRESSION: 1. Multilevel spondylosis as described in detail above. These degenerative changes are superimposed on congenital canal narrowing. 2. Negative acute fracture or subluxation. Electronically signed by: Jamari La MD (01/18/2019 5:19 PM) [facility]
[2019-01-18 18:14] LABS: ANA INTERP Positive (.)
[2019-01-18 19:00] VITALS: BP 137/79
[2019-01-18] MEDS: ATORVASTATIN CALCIUM 10 MG TABLET. PO SCH (20:50)
[2019-01-18] MEDS: AMITRIPTYLINE HCL 10 MG TABLET. PO SCH (20:51)
[2019-01-18 23:00] VITALS: BP 136/80
[2019-01-19 03:00] VITALS: BP 118/63
[2019-01-19] MEDS: oxyCODONE/APAP 7.5/325 1 TAB TABLET PO PRN ×2 (06:01→12:39)
[2019-01-19 07:00] VITALS: BP_SYST 110; BP_SYST 115; BP_DIAS 70; BP_DIAS 74
[2019-01-19] MEDS: INSULIN LISPRO 300 UNITS/3 ML VIAL. SQ SCH ×2 (08:00→12:36)
--- NOTE | 2019-01-19 08:26 | PDOC ---
PROGRESS NOTES Chief Complaint Chief Complaint A/P: Multiple falls - was just discharged with home health previously, to ED multiple visits for falls. 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 - no sonographic evidence of deep venous thrombosis involving the visualized deep venous structures of either lower extremity. Failure to thrive MILD HYPERNATREMIA - hypovolemic VOLUME DEPLETED, dehydration Gait instability Multilevel degenerative change throughout the lumbar spine and lower thoracic spine, resulting in stenosis - Grade 1 anterolisthesis of L5 on S1 and retrolisthesis of L2 on L3. ELEVATED ESR Bilateral leg weakness Anemia - likely of chronic disease Plan: Consulted social work coordinator for possible long-term care placement or nursing home Await lower extremity Doppler report. Home meds, DVT prophylaxis, PT, OT, 27 MIN PT EXAM, CHART REVIEW, > 50% OF TIME SPENT WITH EXAM, CHART REVIEW , PT CARE COORDINATION History of Present Illness History of Present Illness Ms Massey is a 73yo F w/ PMHx Arthritis, Asthma, Diabetes-Type II, Heart Disease, Hypertension, TIA, neuropathy who was seen multiple times recently in ED for falls and bilateral LE weakness. She had been released from the hospital for very similar things twice this year. She went to SNF this last stay and went home, notes she has declined even further since then and is now unable to walk at all. 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 Was seen by neurology, recommended outpatient MRI. C/o bilateral hamstring pain and weakness and pain on the lateral aspect of both knees. No CP or SOB. She states she wishes to go home with home health. Vitals Vitals Vital Signs Date Time Temp Pulse Resp B/P (MAP) Pulse Ox O2 Delivery O2 Flow Rate FiO2 01/19/19 07:00 97.8 67 17 110/74 (86) 98 Room Air 97.8 Physical Exam Physical Exam GENERAL: No apparent distress. Alert and oriented. HEENT: Head is normocephalic, atraumatic, pupils were equally round and reactive to light and accommodation. NECK: Supple, no JVD, no thyromegaly was noted. LUNGS: Clear to auscultation in all lung rabago without rhonchi or wheezing. HEART: RRR, S1, S2 present. Peripheral pulses intact, no obvious murmurs were noted. ABDOMEN: Soft, nontender. Positive bowel sounds no organomegaly, normal bowel sounds. EXTREMITIES: Without any cyanosis, clubbing, or edema. Pedal pulses intact, Homans sign is negative. NEUROLOGIC: She is very weak. PSYCHIATRIC: Normal affect, normal mood. Stable. SKIN: No ulcerations or rashes, good skin turgor, no jaundice. VASCULAR: Good capillary refill, neurovascular bundle appears to be intact. MUSCULOSKELETAL: General: Alert, Oriented X3, Cooperative, No acute distress Heart: Regular rate, Normal S1, Normal S2, No murmurs Lungs: Clear Abdomen: Normal bowel sounds, Soft Extremities: No cyanosis, No edema Skin: No significant lesion Labs LABS Laboratory Tests Test 01/18/19 08:44 01/18/19 11:51 01/18/19 15:30 01/18/19 16:43 Glucose (Fingerstick) 131 mg/dL (70-99) 187 mg/dL (70-99) 130 mg/dL (70-99) 25-Hydroxy Vitamin D Total 25.3 ng/mL (30-100) Test 01/18/19 20:28 01/19/19 08:05 Glucose (Fingerstick) 117 mg/dL (70-99) 105 mg/dL (70-99) Assessment and Plan Assessmemt and Plan Problems Medical Problems: (1) Generalized weakness Status: Acute Comment Review of Relevant I have reviewed the following items jorge luis (where applicable) has been applied. Labs Laboratory Tests Test 01/18/19 08:44 01/18/19 11:51 01/18/19 15:30 01/18/19 16:43 Glucose (Fingerstick) 131 mg/dL (70-99) 187 mg/dL (70-99) 130 mg/dL (70-99) 25-Hydroxy Vitamin D Total 25.3 ng/mL (30-100) Test 01/18/19 20:28 01/19/19 08:05 Glucose (Fingerstick) 117 mg/dL (70-99) 105 mg/dL (70-99) Laboratory Tests Test 01/18/19 08:44 01/18/19 11:51 01/18/19 15:30 01/18/19 16:43 Glucose (Fingerstick) 131 mg/dL (70-99) 187 mg/dL (70-99) 130 mg/dL (70-99) 25-Hydroxy Vitamin D Total 25.3 ng/mL (30-100) Test 01/18/19 20:28 01/19/19 08:05 Glucose (Fingerstick) 117 mg/dL (70-99) 105 mg/dL (70-99) Medications Current Medications Sodium Chloride 1,000 ml @ 100 mls/hr Q10H IV Last administered on 01/13/19 13:35; Start 01/13/19 at 13:06; Stop 01/13/19 at 23:05; Status DC Albuterol Sulfate (Ventolin Neb Soln) 2.5 mg PRN Q6HRS PRN INH SHORTNESS OF BREATH Last administered on 01/14/19 03:21; Start 01/13/19 at 19:00 Amitriptyline HCl (Elavil) 60 mg QHS PO Last administered on 01/18/19 20:52; Start 01/13/19 at 21:00 Clonidine HCl (Catapres) 0.3 mg BID PO Last administered on 01/18/19 20:52; Start 01/13/19 at 21:00 Labetalol HCl (Trandate) 200 mg BID PO Last administered on 01/18/19 20:52; Start 01/13/19 at 21:00 Oxycodone/ Acetaminophen (Percocet 7.5/ 325) 2 tab PRN TID PRN PO SEVERE PAIN Last administered on 01/19/19 06:01; Start 01/13/19 at 19:00 Polyethylene Glycol (miraLAX PACKET) 17 gm DAILY PO Last administered on 01/14/19 09:05; Start 01/14/19 at 09:00 Diclofenac Sodium (Voltaren) 75 mg BID PO Last administered on 01/18/19at 20:52; Start 01/13/19 at 21:00 Glimepiride (Amaryl) 4 mg DAILYWBKFT PO Last administered on 01/18/19at 10:27; Start 01/14/19 at 08:00 Atorvastatin Calcium (Lipitor) 10 mg QHS PO Last administered on 01/18/19at 20:52; Start 01/13/19 at 21:00 Pregabalin (Lyrica) 100 mg BID PO Last administered on 01/18/19at 20:52; Start 01/13/19 at 21:00 Prochlorperazine Maleate (Compazine) 10 mg PRN Q8HRS PRN PO NAUSEA/VOMITING Last administered on 01/18/19at 03:09; Start 01/13/19 at 19:15 Sodium Chloride 1,000 ml @ 75 mls/hr 1X ONCE IV Last administered on 01/14/19at 14:09; Start 01/14/19 at 12:30; Stop 01/15/19 at 01:49; Status DC Enoxaparin Sodium (Lovenox 40mg Syringe) 40 mg Q24H SQ Last administered on 01/18/19at 13:50; Start 01/16/19 at 12:00 Insulin Human Lispro (HumaLOG) 0-7 UNITS TIDWMEALHC SQ ; Start 01/18/19 at 12:00 Dextrose (Dextrose 50%-Water Syringe) 12.5 gm PRN Q15MIN PRN IV SEE COMMENTS; Start 01/18/19 at 08:15 Dextrose 250 ml PRN Q15MIN PRN IV SEE COMMENTS; Start 01/18/19 at 08:15; Status UNV Vitamin D (Vitamin D3) 5,000 unit DAILY PO ; Start 01/19/19 at 09:00; Status UNV Active Scripts Active Miralax (Polyethylene Glycol 3350) 17 Gm Powd.pack 1 Packet PO DAILY Lyrica (Pregabalin) 100 Mg Capsule 1 Cap PO BID 30 Days Reported Percocet 7.5-325 Mg Tablet (Oxycodone/Acetaminophen) 1 Each Tablet 2 Tab PO PRN TID PRN Proair Hfa Inhaler (Albuterol Sulfate) 8.5 Gm Hfa.aer.ad 2 Puff INH PRN Q6HRS PRN Amitriptyline Hcl 10 Mg Tablet 6 Tab PO QHS Glimepiride 4 Mg Tablet 1 Tab PO DAILYWBKFT Compazine (Prochlorperazine Maleate) 10 Mg Tablet 10 Mg PO PRN Q8HRS PRN Diclofenac Sodium 75 Mg Tablet.dr 1 Tab PO BID Pravastatin Sodium 40 Mg Tablet 1 Tab PO QHS Clonidine Hcl 0.3 Mg Tablet 1 Tab PO BID Labetalol Hcl 200 Mg Tablet 1 Tab PO BID Vitals/I & O Vital Sign - Last 24 Hours 01/18/19 01/18/19 01/18/19 01/18/19 10:27 10:27 11:00 15:00 Temp 98.6 97.9 98.6 97.9 Pulse 68 68 70 65 Resp 18 18 B/P (MAP) 153/84 153/84 153/76 (101) 128/76 (93) Pulse Ox 98 98 O2 Delivery Room Air Room Air 01/18/19 01/18/19 01/18/19 01/18/19 19:00 20:00 20:52 20:52 Temp 98.7 98.7 Pulse 70 70 Resp 18 18 B/P (MAP) 137/79 (98) 137/79 Pulse Ox 99 O2 Delivery Room Air Room Air Room Air 01/18/19 01/18/19 01/19/19 01/19/19 20:52 23:00 03:00 04:21 Temp 98.4 97.7 98.4 97.7 Pulse 70 70 61 Resp 18 18 20 B/P (MAP) 137/79 136/80 (98) 118/63 (81) Pulse Ox 97 97 O2 Delivery Room Air Room Air Room Air 01/19/19 01/19/19 06:01 07:00 Temp 97.8 97.8 Pulse 67 Resp 18 17 B/P (MAP) 110/74 (86) Pulse Ox 98 O2 Delivery Room Air Room Air Intake and Output 01/18/19 01/18/19 01/19/19 14:59 22:59 06:59 Intake Total 360 ml 300 ml Balance 360 ml 300 ml LALO SMITH MD Jan 19, 2019 08:26
--- NOTE | 2019-01-19 08:41 | PDOC ---
PROGRESS NOTES Assessment Problems Medical Problems: (1) Generalized weakness Status: Acute Multifactorial gait disorder: Cervical spondylosis and congenital canal narrowing, multiple levels Peripheral neuropathy, most likely from diabetes, lab work for other causes negative or pending Lumbar spondylosis Degenerative joint disease of both knees, ankles, also has rheumatoid arthritis No evidence of stroke, polyradiculopathy, neuromuscular junction disease Medical problems: diabetes mellitus, hypertension, coronary artery disease, asthmatic bronchitis, hyperlipidemia and obesity Plan Await rest of labs Has failed on 2 sessions of SNU PT, see what Dr. Gonsalez thinks Tobias Still needs SNU rehabilitation Subjective No complaints Objective Vital Signs Date Time Temp Pulse Resp B/P (MAP) Pulse Ox O2 Delivery O2 Flow Rate FiO2 01/19/19 07:00 97.8 67 17 110/74 (86) 98 Room Air 97.8 Intake and Output 01/19/19 06:59 Intake Total 660 ml Balance 660 ml Intake Oral 660 ml # Voids 6 PHYSICAL EXAM Alert. Oriented to time, place and person. PERRL. EOMI. CN: no focal findings. Muscle tone: normal. Muscle strength: 4/5 DTR: 1+ arms, 0+ legs Plantar reflex: flexor Gait: not examined in bed. Sensory exam: stocking pinprick loss. No cerebellar signs elicited. Review of Relevant I have reviewed the following items jorge luis (where applicable) has been applied. Labs Laboratory Tests Test 01/18/19 08:44 01/18/19 11:51 01/18/19 15:30 01/18/19 16:43 Glucose (Fingerstick) 131 mg/dL (70-99) 187 mg/dL (70-99) 130 mg/dL (70-99) 25-Hydroxy Vitamin D Total 25.3 ng/mL (30-100) Test 01/18/19 20:28 01/19/19 08:05 Glucose (Fingerstick) 117 mg/dL (70-99) 105 mg/dL (70-99) Laboratory Tests Test 01/18/19 08:44 01/18/19 11:51 01/18/19 15:30 01/18/19 16:43 Glucose (Fingerstick) 131 mg/dL (70-99) 187 mg/dL (70-99) 130 mg/dL (70-99) 25-Hydroxy Vitamin D Total 25.3 ng/mL (30-100) Test 01/18/19 20:28 01/19/19 08:05 Glucose (Fingerstick) 117 mg/dL (70-99) 105 mg/dL (70-99) Medications Current Medications Sodium Chloride 1,000 ml @ 100 mls/hr Q10H IV Last administered on 01/13/19 13:35; Start 01/13/19 at 13:06; Stop 01/13/19 at 23:05; Status DC Albuterol Sulfate (Ventolin Neb Soln) 2.5 mg PRN Q6HRS PRN INH SHORTNESS OF BREATH Last administered on 01/14/19 03:21; Start 01/13/19 at 19:00 Amitriptyline HCl (Elavil) 60 mg QHS PO Last administered on 01/18/19 20:52; Start 01/13/19 at 21:00 Clonidine HCl (Catapres) 0.3 mg BID PO Last administered on 01/18/19 20:52; Start 01/13/19 at 21:00 Labetalol HCl (Trandate) 200 mg BID PO Last administered on 01/18/19 20:52; Start 01/13/19 at 21:00 Oxycodone/ Acetaminophen (Percocet 7.5/ 325) 2 tab PRN TID PRN PO SEVERE PAIN Last administered on 01/19/19 06:01; Start 01/13/19 at 19:00 Polyethylene Glycol (miraLAX PACKET) 17 gm DAILY PO Last administered on 01/14/19 09:05; Start 01/14/19 at 09:00 Diclofenac Sodium (Voltaren) 75 mg BID PO Last administered on 01/18/19 20:52; Start 01/13/19 at 21:00 Glimepiride (Amaryl) 4 mg DAILYWBKFT PO Last administered on 01/18/19 10:27; Start 01/14/19 at 08:00 Atorvastatin Calcium (Lipitor) 10 mg QHS PO Last administered on 01/18/19 20:52; Start 01/13/19 at 21:00 Pregabalin (Lyrica) 100 mg BID PO Last administered on 01/18/19 20:52; Start 01/13/19 at 21:00 Prochlorperazine Maleate (Compazine) 10 mg PRN Q8HRS PRN PO NAUSEA/VOMITING Last administered on 01/18/19at 03:09; Start 01/13/19 at 19:15 Sodium Chloride 1,000 ml @ 75 mls/hr 1X ONCE IV Last administered on 01/14/19at 14:09; Start 01/14/19 at 12:30; Stop 01/15/19 at 01:49; Status DC Enoxaparin Sodium (Lovenox 40mg Syringe) 40 mg Q24H SQ Last administered on 01/18/19at 13:50; Start 01/16/19 at 12:00 Insulin Human Lispro (HumaLOG) 0-7 UNITS TIDWMEALHC SQ ; Start 01/18/19 at 12:00 Dextrose (Dextrose 50%-Water Syringe) 12.5 gm PRN Q15MIN PRN IV SEE COMMENTS; Start 01/18/19 at 08:15 Dextrose 250 ml PRN Q15MIN PRN IV SEE COMMENTS; Start 01/18/19 at 08:15; Status UNV Vitamin D (Vitamin D3) 5,000 unit DAILY PO ; Start 01/19/19 at 09:00 Active Scripts Active Miralax (Polyethylene Glycol 3350) 17 Gm Powd.pack 1 Packet PO DAILY Lyrica (Pregabalin) 100 Mg Capsule 1 Cap PO BID 30 Days Reported Percocet 7.5-325 Mg Tablet (Oxycodone/Acetaminophen) 1 Each Tablet 2 Tab PO PRN TID PRN Proair Hfa Inhaler (Albuterol Sulfate) 8.5 Gm Hfa.aer.ad 2 Puff INH PRN Q6HRS PRN Amitriptyline Hcl 10 Mg Tablet 6 Tab PO QHS Glimepiride 4 Mg Tablet 1 Tab PO DAILYWBKFT Compazine (Prochlorperazine Maleate) 10 Mg Tablet 10 Mg PO PRN Q8HRS PRN Diclofenac Sodium 75 Mg Tablet.dr 1 Tab PO BID Pravastatin Sodium 40 Mg Tablet 1 Tab PO QHS Clonidine Hcl 0.3 Mg Tablet 1 Tab PO BID Labetalol Hcl 200 Mg Tablet 1 Tab PO BID Vitals/I & O Vital Sign - Last 24 Hours 01/18/19 01/18/19 01/18/19 01/18/19 10:27 10:27 11:00 15:00 Temp 98.6 97.9 98.6 97.9 Pulse 68 68 70 65 Resp 18 18 B/P (MAP) 153/84 153/84 153/76 (101) 128/76 (93) Pulse Ox 98 98 O2 Delivery Room Air Room Air 01/18/19 01/18/19 01/18/19 01/18/19 19:00 20:00 20:52 20:52 Temp 98.7 98.7 Pulse 70 70 Resp 18 18 B/P (MAP) 137/79 (98) 137/79 Pulse Ox 99 O2 Delivery Room Air Room Air Room Air 01/18/19 01/18/19 01/19/19 01/19/19 20:52 23:00 03:00 04:21 Temp 98.4 97.7 98.4 97.7 Pulse 70 70 61 Resp 18 18 20 B/P (MAP) 137/79 136/80 (98) 118/63 (81) Pulse Ox 97 97 O2 Delivery Room Air Room Air Room Air 01/19/19 01/19/19 06:01 07:00 Temp 97.8 97.8 Pulse 67 Resp 18 17 B/P (MAP) 110/74 (86) Pulse Ox 98 O2 Delivery Room Air Room Air Intake and Output 01/18/19 01/18/19 01/19/19 14:59 22:59 06:59 Intake Total 360 ml 300 ml Balance 360 ml [address] Cervical Spine Without Iv Contrast Vertebral body heights are preserved. No evidence for acute fracture. Mild disc height loss at C3-4, C4-5, C5-6 and C6-7. Straightening of the normal cervical lordosis. No spondylolisthesis. 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 C2-C3: Small central disc protrusion results in mild central canal stenosis. C3-C4: Posterior disc osteophyte complex results in mild flattening of the ventral central canal and in conjunction with congenital canal narrowing there is moderate central canal stenosis and mild bilateral neural foraminal narrowing. C4-C5: Posterior disc osteophyte complex with facet degenerative changes superimposed on congenital canal narrowing results in moderate central canal stenosis and bilateral neural foraminal narrowing. C5-C6: Posterior disc osteophyte complex with facet degenerative changes superimposed on congenital canal narrowing results in moderate central canal stenosis and [id number] bilateral neural foraminal narrowing. C6-C7: Posterior disc osteophyte complex with facet degenerative changes results in moderate central canal stenosis and mild right neural foraminal narrowing. C7-T1: No significant central canal stenosis or neural foraminal narrowing. Bilateral thyroid nodules are seen, left thyroid nodule measures up to 3.3 cm. IMPRESSION: 1. Multilevel spondylosis as described in detail above. These degenerative changes are superimposed on congenital canal narrowing. 2. Negative acute fracture or subluxation. KERVIN ZARAGOZA MD Jan 19, 2019 08:41
[2019-01-19] MEDS: POLYETHYLENE GLYCOL 3350 17 GM PACKET. PO SCH (09:00)
[2019-01-19] MEDS ORDERED: CHOLECALCIFEROL (VITAMIN D3) 5,000 UNIT CAPSULE PO SCH (09:00)
--- NOTE | 2019-01-19 09:00 | NUR ---
SW following pt. Spoke with Inessa at [facility], She is still awaiting to hear back from Admission team regarding pt's application. Spoke with pt at bedside again about going to SNU. Pt is adamant about going home with home health. Physician notified. D/w RN.
[2019-01-19] MEDS: PREGABALIN 50 MG CAPSULE PO SCH (09:06)
[2019-01-19] MEDS: LABETALOL HCL 200 MG TABLET PO SCH (09:06)
[2019-01-19] MEDS: GLIMEPIRIDE 2 MG TABLET. PO SCH (09:07)
[2019-01-19] MEDS: cloNIDine HCL 0.3 MG TABLET PO SCH (09:07)
[2019-01-19] MEDS: DICLOFENAC SODIUM 25 MG TABLET.DR PO SCH (09:08)
[2019-01-19 09:15] LABS: CALCIUM PTH 10.1 mg/dL (8.7-10.3); CREATININE PTH 1.14 mg/dL (0.57-1.00); PHOSPHORUS PTH 3.6 mg/dL (2.5-4.5); PTH INTACT 92 pg/mL (15-65)
[2019-01-19 11:00] VITALS: BP 111/70
[2019-01-19] MEDS: ENOXAPARIN 40 MG/0.4 ML SYRINGE. SQ SCH (12:30)
--- NOTE | 2019-01-19 13:12 | SNU/HH DC ---
DISCHARGE WITH HOME HEALTH DISCHARGE INFORMATION: Discharge Date: Jan 19, 2019 Final Diagnosis: Problems Medical Problems: (1) Generalized weakness Status: Acute Condition on Discharge: Stable CODE STATUS: Code Status: Full HOME HEALTH: Face to Face: I certify this patient is under my care and that I, or a nurse practitioner or physician's social human services assistants working with me, had a face to face encounter that meets the physician face to face encounter requirements with this patient on 01/19/19. Medical Complications: DJD, Falls RN For Eval/Treatment: Yes Physical Therapy For: Evalulation/Treatment Occupational Therapy For: Evaluation/Treatment Home Health Aide For: Self-care Pt Meets Homebound Status: Unsteady balance w/ amb,, Frequent falls w/ injury, Limited distance walking POST DISCHARGE ORDERS: Activity Instructions for Disc: Activity as tolerated Weight Bearing Status after Di: As tolerated DIET AFTER DISCHARGE: ADA Wound/Incision Care: No wound care needed CHECKS AFTER DISCHARGE: Checks after discharge: Check blood press - daily, Check blood sugar, ac/hs, Check your Temp as needed FOLLOW-UP: Follow up with: Dr. Gonsalez - neurosurgery Follow Up With: Dr. Dawson Navarro - [phone] to schedule TREATMENT/EQUIPMENT ORDERS: Adaptive Equipment Issued: None CERTIFICATION STATEMENT: Certification Statement: Certification Statement: Based on the above finding, I certify that this patient is confined to the home and needs intermittent nursing home care, physical therapy and/or speech therapy, or continues to need occupational therapy.~ This patient is under my care, and I have initiated the establishment of the plan of care.~ This patient will be followed by myself or a community physician who will periodically review the plan of care. Home Meds Active Scripts Cholecalciferol (Vitamin D3) (VITAMIN D3) 5,000 Unit Capsule, 5000 UNIT PO DAILY for Vitamin D insufficiency for 30 Days, #30 CAP 2 Refills Prov:LALO SMITH MD 01/19/19 Polyethylene Glycol 3350 (MIRALAX) 17 Gm Powd.pack, 1 PACKET PO DAILY for Constipation, #30 PACKET 3 Refills Prov:LALO SMITH MD 12/09/18 Pregabalin (LYRICA) 100 Mg Capsule, 1 CAP PO BID for nerve pain for 30 Days, #60 CAP 2 Refills Prov:LALO SMITH MD 12/09/18 Reported Medications Oxycodone/Apap 7.5-325 (PERCOCET 7.5-325 MG TABLET ) 1 Each Tablet, 2 TAB PO PRN TID PRN for PAIN, TAB 0 Refills 01/13/19 Albuterol Sulfate (PROAIR HFA INHALER) 8.5 Gm Hfa.aer.ad, 2 PUFF INH PRN Q6HRS PRN for SHORTNESS OF BREATH, INHALER 0 Refills 06/13/17 Amitriptyline Hcl (AMITRIPTYLINE HCL) 10 Mg Tablet, 6 TAB PO QHS for sleep, #30 TAB 1 Refill 06/13/17 Glimepiride (GLIMEPIRIDE) 4 Mg Tablet, 1 TAB PO DAILYWBKFT for does not know, #30 TAB 5 Refills 06/13/17 Prochlorperazine Maleate (Compazine) 10 Mg Tablet, 10 MG PO PRN Q8HRS PRN for NAUSEA, TAB 06/13/17 Diclofenac Sodium (DICLOFENAC SODIUM) 75 Mg Tablet.dr, 1 TAB PO BID, #60 TAB 1 Refill 06/13/17 Pravastatin Sodium (PRAVASTATIN SODIUM) 40 Mg Tablet, 1 TAB PO QHS for chol esterol, #90 TAB 1 Refill 06/13/17 Clonidine Hcl (CLONIDINE HCL) 0.3 Mg Tablet, 1 TAB PO BID for htn, #30 TAB 2 Refills 06/13/17 Labetalol Hcl (LABETALOL HCL) 200 Mg Tablet, 1 TAB PO BID for htn, #60 TAB 5 Refills 06/13/17 LALO SMITH MD Jan 19, 2019 13:12
--- NOTE | 2019-01-19 13:49 | PDOC3 ---
Discharge Summary Visit Information Date of Admission: Jan 13, 2019 Date of Discharge: Jan 19, 2019 Admitting Diagnosis: Unable to walk Final Diagnosis Problems Medical Problems: (1) Generalized weakness Status: Acute Brief Hospital Course Allergies Allergies Coded Allergies Type Severity Reaction Last Updated Verified No Known Drug Allergies 06/10/17 No Vital Signs Vital Signs Date Time Temp Pulse Resp B/P (MAP) Pulse Ox O2 Delivery O2 Flow Rate FiO2 01/19/19 12:39 97 Room Air 01/19/19 11:00 98.0 61 18 111/70 (84) 98.0 Lab Results Laboratory Tests Test 01/18/19 08:44 01/18/19 11:51 01/18/19 15:30 01/18/19 16:43 Glucose (Fingerstick) 131 mg/dL (70-99) 187 mg/dL (70-99) 130 mg/dL (70-99) Estimated GFR (Non- 47 (>59) EGFR 55 (>59) 25-Hydroxy Vitamin D Total 25.3 ng/mL (30-100) PTH (Intact) Specimen Description Comment (.) Parathyroid Hormone (Intact) 92 pg/mL (15-65) Calcium (PTH Intact) 10.1 mg/dL (8.7-10.3) Creatinine (PTH Intact) 1.14 mg/dL (0.57-1.00) Phosphorus (PTH Intact) 3.6 mg/dL (2.5-4.5) Test 01/18/19 20:28 01/19/19 08:05 01/19/19 09:10 01/19/19 11:53 Glucose (Fingerstick) 117 mg/dL (70-99) 105 mg/dL (70-99) 172 mg/dL (70-99) Creatine Kinase 91 U/L (26-192) Vitamin B12 Level 328 pg/mL (247-911) Laboratory Tests Test 01/18/19 15:30 01/18/19 16:43 01/18/19 20:28 01/19/19 08:05 Estimated GFR (Non- 47 (>59) EGFR 55 (>59) 25-Hydroxy Vitamin D Total 25.3 ng/mL (30-100) PTH (Intact) Specimen Description Comment (.) Parathyroid Hormone (Intact) 92 pg/mL (15-65) Calcium (PTH Intact) 10.1 mg/dL (8.7-10.3) Creatinine (PTH Intact) 1.14 mg/dL (0.57-1.00) Phosphorus (PTH Intact) 3.6 mg/dL (2.5-4.5) Glucose (Fingerstick) 130 mg/dL (70-99) 117 mg/dL (70-99) 105 mg/dL (70-99) Test 01/19/19 09:10 01/19/19 11:53 Creatine Kinase 91 U/L (26-192) Vitamin B12 Level 328 pg/mL (247-911) Glucose (Fingerstick) 172 mg/dL (70-99) Brief Hospital Course Ms Massey is a 73yo F w/ PMHx Arthritis, Asthma, Diabetes-Type II, Heart Disease, Hypertension, TIA, neuropathy who was seen multiple times recently in ED for falls and bilateral LE weakness. She had been released from the hospital for very similar things twice this year. She went to SNF this last stay and went home, notes she has declined even further since then and is now unable to walk at all. 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 Was seen by neurology, recommended outpatient MRI. C/o bilateral hamstring pain and weakness and pain on the lateral aspect of both knees. No CP or SOB. She states she wishes to go home with home health. A/P: Multiple falls - was just discharged with home health previously, to ED multiple visits for falls. 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 - no sonographic evidence of deep venous thrombosis involving the visualized deep venous structures of either lower extremity. Failure to thrive MILD HYPERNATREMIA - hypovolemic VOLUME DEPLETED, dehydration Gait instability Multilevel degenerative change throughout the lumbar spine and lower thoracic spine, resulting in stenosis - Grade 1 anterolisthesis of L5 on S1 and retrolisthesis of L2 on L3. ELEVATED ESR Bilateral leg weakness Anemia - likely of chronic disease Plan: Consulted social work assistant for possible long-term care placement or long-term which she will be looking into later this month, wishes to give home health another chance Await lower extremity Doppler report. Home meds, DVT prophylaxis, PT, OT, Greater than 30 minutes spent on d/c Discharge Information Condition at Discharge: Improved Follow Up: Weeks (2) Disposition/Orders: D/C to Home w/ HH Scheduled Amitriptyline Hcl (Amitriptyline Hcl) 10 Mg Tablet, 6 TAB PO QHS for sleep, #30 Ref 1 (Reported) Entered as Reported by: HELENA ROGERS on 06/13/17957 Last Taken: Unknown Dose on 01/12/192099 Last Action: Continued on 01/13/191899 by JIMI PARKS Clonidine Hcl (Clonidine Hcl) 0.3 Mg Tablet, 1 TAB PO BID for htn, #30 Ref 2 (Reported) Entered as Reported by: HELENA ROGERS on 06/13/17957 Last Taken: Unknown Dose on 01/13/19899 Last Action: Continued on 01/13/191899 by JIMI PARKS Diclofenac Sodium (Diclofenac Sodium) 75 Mg Tablet.dr, 1 TAB PO BID, #60 Ref 1 (Reported) Entered as Reported by: HELENA ROGERS on 06/13/17957 Last Taken: Unknown Dose on 01/13/19899 Last Action: Converted on 01/13/191899 by JIMI PARKS Glimepiride (Glimepiride) 4 Mg Tablet, 1 TAB PO DAILYWBKFT for does not know, #30 Ref 5 (Reported) Entered as Reported by: HELENA ROGERS on 06/13/17957 Last Taken: Unknown Dose on 01/13/19 Last Action: Converted on 01/13/191899 by JIMI PARKS Labetalol Hcl (Labetalol Hcl) 200 Mg Tablet, 1 TAB PO BID for htn, #60 Ref 5 (R eported) Entered as Reported by: HELENA ROGERS on 06/13/17957 Last Taken: Unknown Dose on 01/13/19899 Last Action: Continued on 01/13/191899 by JIMI PARKS Polyethylene Glycol 3350 (Miralax) 17 Gm Powd.pack, 1 PACKET PO DAILY for Constipation, #30 Ref 3 Prescribed by: LALO SMITH MD on 12/09/181404 Last Taken: Unknown Dose on 01/13/19899 Last Action: Continued on 01/13/191899 by JIMI PARKS Pravastatin Sodium (Pravastatin Sodium) 40 Mg Tablet, 1 TAB PO QHS for cholesterol, #90 Ref 1 (Reported) Entered as Reported by: HELENA ROGERS on 06/13/17957 Last Taken: Unknown Dose on 01/12/19 Last Action: Converted on 01/13/191899 by JIMI PRAKS Pregabalin (Lyrica) 100 Mg Capsule, 1 CAP PO BID for nerve pain for 30 Days, #60 Ref 2 Prescribed by: LALO SMITH MD on 12/09/181404 Last Taken: Unknown Dose on 01/13/19899 Last Action: Converted on 01/13/191899 by JIMI PARKS Scheduled PRN Albuterol Sulfate (Proair Hfa Inhaler) 8.5 Gm Hfa.aer.ad, 2 PUFF INH PRN Q6HRS PRN for SHORTNESS OF BREATH, Ref 0 (Reported) Entered as Reported by: HELENA ROGERS on 06/13/17957 Last Taken: Unknown Dose on 01/13/19 Last Action: Continued on 01/13/191899 by JIMI PARKS Oxycodone/Apap 7.5-325 (Percocet 7.5-325 Mg Tablet ) 1 Each Tablet, 2 TAB PO PRN TID PRN for PAIN, Ref 0 (Reported) Entered as Reported by: JIMI PARKS on 01/13/191857 Last Taken: Unknown Dose on 01/12/19 Last Action: Continued on 01/13/191899 by JIMI PARKS Prochlorperazine Maleate (Compazine) 10 Mg Tablet, 10 MG PO PRN Q8HRS PRN for NAUSEA, (Reported) Entered as Reported by: HELENA ROGERS on 06/13/17957 Last Taken: Unknown Dose on 01/12/19 Last Action: Converted on 01/13/191899 by LALO ARRIOLA MD Jan 19, 2019 13:49
[2019-01-19] MEDS ORDERED: CHOL5000 PO (13:50)
--- NOTE | 2019-01-19 14:56 | NUR ---
SW following pt. Per Inessa at [place], they are awaiting for pt to be approved for section 8 housing. Pt also states she has to present them with her certificate. orders phoned and faxed to [facility]. Pt states her granddaughter will take her home after 1700. D/w RN.
[2019-01-19 15:00] VITALS: BP 147/89
[2019-01-21 12:10] LABS: ALBUM 3.4 g/dL (2.9-4.4); ALPHA 1 0.3 g/dL (0.0-0.4); ALPHA 2 0.8 g/dL (0.4-1.0); BETA 1.2 g/dL (0.7-1.3); GAMMA 1.3 g/dL (0.4-1.8); SPEP AG RATIO 0.9 (0.7-1.7)
== END 2019-01-19 20:30 | disposition home health service (06) | DRG 74 ==
LOC: ER 12:40 → 5 SOUTH 15:30
PROVIDERS: ADMIT Internal Medicine; ATTEND Internal Medicine
DX: E11.42 Type 2 diabetes mellitus with diabetic polyneuropathy (principal); E87.0 Hyperosmolality and hypernatremia; R62.7 Adult failure to thrive; D63.8 Anemia in other chronic diseases classified elsewhere; E66.9 Obesity, unspecified; E78.5 Hyperlipidemia, unspecified; E86.0 Dehydration; E86.1 Hypovolemia; G89.29 Other chronic pain; M19.90 Unspecified osteoarthritis, unspecified site; I10 Essential (primary) hypertension; I25.10 Atherosclerotic heart disease of native coronary artery without angina pectoris; J45.909 Unspecified asthma, uncomplicated; M06.9 Rheumatoid arthritis, unspecified; M17.0 Bilateral primary osteoarthritis of knee; M41.9 Scoliosis, unspecified; M43.17 Spondylolisthesis, lumbosacral region; M47.816 Spondylosis without myelopathy or radiculopathy, lumbar region; M48.061 Spinal stenosis, lumbar region without neurogenic claudication; M51.36 Other intervertebral disc degeneration, lumbar region; R76.8 Other specified abnormal immunological findings in serum; Z83.3 Family history of diabetes mellitus; Z86.73 Personal history of transient ischemic attack (TIA), and cerebral infarction without residual deficits; Z91.81 History of falling; Z90.710 Acquired absence of both cervix and uterus; Z79.899 Other long term (current) drug therapy; Z68.38 Body mass index [BMI] 38.0-38.9, adult; Z90.49 Acquired absence of other specified parts of digestive tract
CPT/HCPCS: 36415; 70450; 71045; 72125; 80048; 80053; 81001; 82306; 82550; 82607; 82962; 83540; 83550; 83735; 83880; 83970; 84165; 84439; 84443; 84484; 85025; 85610; 85651; 86038; 86140; 86431; 93005; 93306; 93925; 93970; 94640; 96360; J1650; J1815; J7030; J7613; Q0164; 97110; 97116; 97530; 97535; 99285-25; G0378

== ENCOUNTER 2019-02-07 05:57 | Inpatient (IN) | payer OTHER, MEDICAID ==
[~2019-02-07] VITALS: Ht 175.3 cm; Wt 124.5 kg
[~2019-02-07 05:57] MED LIST changes: +CHOL5000 PO; -GLIM4TAB2 PO; +GLIM4TAB4 PO
--- NOTE | 2019-02-07 06:11 | PHYS DOC ---
Past Medical History Past Medical History: Arthritis, Asthma, Diabetes-Type II, Heart Disease, Hypertension, TIA, Other Additional Past Medical Histor: NEUROPATHY Past Surgical History: Cholecystectomy, Hysterectomy, Tonsillectomy Alcohol Use: None Drug Use: None Adult General Chief Complaint Chief Complaint: GI PROBLEM HPI HPI Patient is a 74 year old female [facility] who presents via EMS with complaining of vomiting blood. Patient complaining of 4 episodes of coffee- ground material since last night until 4 episodes of nonbloody stool without abdominal pain, dizziness, palpitation, chest pain, fever and chills, urinary symptom. Patient complaining of low back pain and denies history of GI bleed or taking anticoagulation medication and easy bruising and other source of bl eeding. Review of Systems Review of Systems Constitutional: Denies fever or chills [] Eyes: Denies change in visual acuity, redness, or eye pain [] HENT: Denies nasal congestion or sore throat [] Respiratory: Denies cough or shortness of breath [] Cardiovascular: No additional information not addressed in HPI [] GI: Denies abdominal pain, reports nausea, vomiting. : Denies dysuria or hematuria [] Musculoskeletal: Denies back pain or joint pain [] Integument: Denies rash or skin lesions [] Neurologic: Denies headache, focal weakness or sensory changes [] Endocrine: Denies polyuria or polydipsia [] All other systems were reviewed and found to be within normal limits, except as documented in this note. Current Medications Current Medications Current Medications Medications (Trade) Dose Ordered Sig/Janay Start Time Stop Time Status Last Admin Dose Admin Albuterol/ Ipratropium (Duoneb) 3 ml 1X ONCE 02/07/19 07:30 02/07/19 07:31 DC 02/07/19 07:43 3 ML Pantoprazole Sodium (PROTONIX VIAL for IV PUSH) 40 mg 1X ONCE 02/07/19 06:30 02/07/19 06:31 DC 02/07/19 07:42 40 MG Sodium Chloride 1,000 ml @ 1,000 mls/hr 1X ONCE 02/07/19 06:30 02/07/19 07:29 DC 02/07/19 07:45 1,000 MLS/HR Allergies Allergies Allergies Coded Allergies Type Severity Reaction Last Updated Verified No Known Drug Allergies 06/10/17 No Physical Exam Physical Exam Constitutional: Well developed, well nourished, mild distress, non-toxic appearance, no pallor. [] HENT: Normocephalic, atraumatic. Eyes: PERRLA, EOMI, conjunctiva normal, no discharge. [] Neck: Normal range of motion, no tenderness, supple, no stridor. [] Cardiovascular:Heart rate regular rhythm, no murmur [] Lungs & Thorax: Bilateral breath sounds clear to auscultation [] Abdomen: Bowel sounds normal, soft, no tenderness, no masses, no pulsatile masses. Patient refused rectal exam. Skin: Warm, dry, no erythema, no rash. [] Back: No tenderness, no CVA tenderness. [] Extremities: No tenderness, small joint arthritis deformity, no cyanosis, no clubbing, ROM intact, no edema. [] Neurologic: Alert and oriented X 3, no focal deficits noted. [] Psychologic: Affect anxious, judgement normal, mood normal. [] Current Patient Data Vital Signs Vital Signs Date Time Temp Pulse Resp B/P (MAP) Pulse Ox O2 Delivery O2 Flow Rate FiO2 02/07/19 07:46 98 Room Air 02/07/19 06:00 98.8 105 20 174/119 (137) 98.8 Lab Values Laboratory Tests Test 02/07/19 06:40 White Blood Count 8.4 x10^3/uL (4.0-11.0) Red Blood Count 4.57 x10^6/uL (3.50-5.40) Hemoglobin 14.4 g/dL (12.0-15.5) Hematocrit 43.4 % (36.0-47.0) Mean Corpuscular Volume 95 fL (79-100) Mean Corpuscular Hemoglobin 32 pg (25-35) Mean Corpuscular Hemoglobin Concent 33 g/dL (31-37) Red Cell Distribution Width 12.6 % (11.5-14.5) Platelet Count 250 x10^3/uL (140-400) Neutrophils (%) (Auto) 76 % (31-73) H Lymphocytes (%) (Auto) 19 % (24-48) L Monocytes (%) (Auto) 4 % (0-9) Eosinophils (%) (Auto) 0 % (0-3) Basophils (%) (Auto) 1 % (0-3) Neutrophils # (Auto) 6.4 x10^3/uL (1.8-7.7) Lymphocytes # (Auto) 1.6 x10^3/uL (1.0-4.8) Monocytes # (Auto) 0.4 x10^3/uL (0.0-1.1) Eosinophils # (Auto) 0.0 x10^3/uL (0.0-0.7) Basophils # (Auto) 0.1 x10^3/uL (0.0-0.2) Prothrombin Time 12.6 SEC (11.7-14.0) Prothrombin Time INR 1.0 (0.8-1.1) Activated Partial Thromboplast Time 26 SEC (24-38) Sodium Level 143 mmol/L (136-145) Potassium Level 4.4 mmol/L (3.5-5.1) Chloride Level 103 mmol/L (98-107) Carbon Dioxide Level 25 mmol/L (21-32) Anion Gap 15 (6-14) H Blood Urea Nitrogen 10 mg/dL (7-20) Creatinine 0.9 mg/dL (0.6-1.0) Estimated GFR (Cockcroft-Gault) 73.9 BUN/Creatinine Ratio 11 (6-20) Glucose Level 228 mg/dL (70-99) H Lactic Acid Level 1.3 mmol/L (0.4-2.0) Calcium Level 11.2 mg/dL (8.5-10.1) H Total Bilirubin 0.6 mg/dL (0.2-1.0) Aspartate Amino Transferase (AST) 14 U/L (15-37) L Alanine Aminotransferase (ALT) 17 U/L (14-59) Alkaline Phosphatase 121 U/L (46-116) H Troponin I Quantitative < 0.017 ng/mL (0.000-0.055) MW-Zmc-O-Type Natriuretic Peptide 271 pg/mL (0-449) Total Protein 8.7 g/dL (6.4-8.2) H Albumin 4.3 g/dL (3.4-5.0) Albumin/Globulin Ratio 1.0 (1.0-1.7) Lipase 55 U/L (73-393) L Laboratory Tests 02/07/19 06:40 Laboratory Tests 02/07/19 06:40 EKG EKG EKG interpreted by me. EKG at 0809 showed normal sinus rhythm at rate of 96, left avila axis, no acute ST and T-wave abnormalities Radiology/Procedures Radiology/Procedures [][facility] [address] [place] [address] IMAGING REPORT Signed PATIENT: BIB SANTIAGO ACCOUNT: [id number] : 1945 LOCATION: [facility] AGE: 74 SEX: F EXAM STATUS: ADM IN ORD. PHYSICIAN: NORRIS PAUILNO MD REASON: BACK PAIN PROCEDURE: CT LUMBAR SPINE RECONSTRUCTION CT scan of the lumbar spine without contrast 02/07/2019 CLINICAL HISTORY: Low back pain. TECHNIQUE: 3 mm reconstructed sagittal, axial and coronal images of the lumbar spine were obtained from the data set generated from the patient's CT scan of the abdomen and pelvis. One or more of the following individualized dose reduction techniques were utilized for this study: 1. Automated exposure control. 2. Adjustment of the mA and/or kV according to patient size. 3. Use of iterative reconstruction technique. FINDINGS: Sagittal and coronal reconstructed images demonstrate very mild S-shaped curvature of the thoracolumbar spine. The patient appears to have transitional vertebral anatomy. For the purposes of this dictation the transitional vertebral segment will be referred to by the letter T. Mild anterolisthesis of L5 in relation to T is seen. The transitional vertebrae is sacralized. Degenerative changes are seen involving the lower thoracic and throughout the lumbar disc spaces consisting of vertebral endplate sclerosis and minimal to mild anterior vertebral body osteophyte formation. Vacuum disc phenomenon are seen scattered throughout the thoracic lumbar disc spaces. Mild disc space narrowing is seen at L5-T. Atherosclerotic calcification of the abdominal aorta and its branches is noted. No fracture or subluxation of the lumbar vertebrae is seen. The changes of degenerative disc disease are seen throughout the lumbar disc spaces. These consist of mild generalized disc bulges and degenerative changes involving the facet joints along with mild to moderate ligamentum flavum hypertrophy. These findings do not result in definite significant central spinal canal stenosis. Mild to moderate right greater than left neural foraminal stenosis is seen at L2-3. Mild to moderate bilateral neural foraminal stenosis is seen at L5-T. IMPRESSION: Degenerative changes are seen involving the lumbar spine as discussed above. No acute osseous abnormality is seen. Electronically signed by: Rico Gillis MD (02/07/2019 9:04 AM) [facility] DICTATED and SIGNED BY: RICO GILLIS MD DATE: 02/07/19 09 [facility] [address] [place] [address] IMAGING REPORT Signed PATIENT: BIB SANTIAGO ACCOUNT: [id number] : 1945 LOCATION: [address] [place] [address] AGE: 74 SEX: F EXAM STATUS: ADM IN ORD. PHYSICIAN: NORRIS PAULINO MD REASON: Abdomen pain PROCEDURE: CT ABDOMEN PELVIS WO CONTRAST CT scan of the abdomen and pelvis without contrast 02/07/2019 CLINICAL HISTORY: Abdominal pain. TECHNIQUE: Unenhanced, contiguous, 2 mm axial sections were obtained through the abdomen and pelvis. One or more of the following individualized dose reduction techniques were utilized for this study: 1. Automated exposure control. 2. Adjustment of the mA and/or kV according to patient size. 3. Use of iterative reconstruction technique. FINDINGS: Images through the lung bases demonstrate mild cardiomegaly. Minimal dependent subsegmental atelectasis is seen bilaterally. The liver, spleen, pancreas, adrenal glands and left kidney are within normal limits. A 4.4 cm rounded low-attenuation lesion is seen involving the superior/midpole of the right kidney. This likely represents a cyst. Atherosclerotic calcification of the abdominal aorta is seen. The abdominal aorta tapers normally. Surgical clips are seen within the gallbladder fossa consistent with a cholecystectomy. Air and stool are seen throughout the colon. The appendix is well-visualized and is within normal limits. No free fluid or free air is seen within the abdomen. There is no evidence of bowel obstruction. Images through the pelvis demonstrate the urinary bladder distended with urine. Calcifications are seen within the pelvis consistent with phleboliths. No free fluid is seen. Very mild S-shaped curvature of the thoracolumbar spine is seen. Degenerative changes are seen involving the thoracic spine and lumbar spine along with both hips. IMPRESSION: No acute abnormality is seen. Electronically signed by: Rico Gillis MD (02/07/2019 9:12 AM) [facility] DICTATED and SIGNED BY: RICO GILLIS MD DATE: 02/07/19911 Course & Med Decision Making Course & Med Decision Making Pertinent Labs and Imaging studies reviewed. (See chart for details) Evaluation of patient in ER showed 74-year-old male patient with complaining of vomiting coffee-ground material. Patient had few episodes of a small amount of vomiting in ER without obvious coffee-ground material that was positive for blood in lab.Patient requiring admission for further evaluation and treatment. Discussed with Dr. Levine who is in agreement with admission. Discussed findings and plan with patient and family, who acknowledge understanding and agreement. Dragon Disclaimer Dragon Disclaimer This electronic medical record was generated, in whole or in part, using a voice recognition dictation system. Departure Departure Impression: Primary Impression: Nausea and vomiting Additional Impressions: Low back pain Hypercalcemia Uncontrolled diabetes mellitus Disposition: ADMITTED INPATIENT (at 755) Admitting Physician: CUBA ( accepted admission at 755) Condition: IMPROVED Referrals: TOAN REYES (PCP) Problem Qualifiers Primary Impression: Nausea and vomiting Vomiting type: unspecified Vomiting Intractability: unspecified Qualified Codes: R11.2 - Nausea with vomiting, unspecified Additional Impressions: Low back pain Chronicity: unspecified Back pain laterality: unspecified Sciatica presence: unspecified whether sciatica present Qualified Codes: M54.5 - Low back pain Uncontrolled diabetes mellitus Diabetes mellitus type: other specified (including EDITH) Glycemic state: with hyperglycemia Qualified Codes: E13.65 - Other specified diabetes mellitus with hyperglycemia NORRIS PAULINO MD Feb 07, 2019 06:11
[2019-02-07] MEDS ORDERED: PANTOPRAZOLE IV PUSH 40 MG VIAL. IVP ONE (06:30)
[2019-02-07] MEDS ORDERED: IV NORMAL SALINE 1000ML BAG 1,000 ML IV ONE (06:30)
[2019-02-07 07:07] LABS: BASO # 0.1 x10^3/uL (0.0-0.2); BASO % 1 % (0-3); EOS % 0 % (0-3); HEMATOCRIT 43.4 % (36.0-47.0); HEMOGLOBIN 14.4 g/dL (12.0-15.5); LYMPH # 1.6 x10^3/uL (1.0-4.8); LYMPH % 19 % (24-48); MEAN CORPUSCULAR HEMOGLOBIN 32 pg (25-35); MEAN CORPUSCULAR HGB CONC 33 g/dL (31-37); MEAN CORPUSCULAR VOLUME 95 fL (79-100); MONO # 0.4 x10^3/uL (0.0-1.1); MONO % 4 % (0-9); NEUT # 6.4 x10^3/uL (1.8-7.7); NEUT % 76 % (31-73); PLATELET COUNT 250 x10^3/uL (140-400); RED BLOOD COUNT 4.57 x10^6/uL (3.50-5.40); RED CELL DISTRIBUTION WIDTH 12.6 % (11.5-14.5); WHITE BLOOD COUNT 8.4 x10^3/uL (4.0-11.0)
[2019-02-07 07:12] LABS: CALCIUM 11.2 mg/dL (8.5-10.1); CREATININE 0.9 mg/dL (0.6-1.0); GFR 73.9
[2019-02-07 07:13] LABS: POTASSIUM 4.4 mmol/L (3.5-5.1)
[2019-02-07 07:18] LABS: ALBUMIN 4.3 g/dL (3.4-5.0); TOTAL BILIRUBIN 0.6 mg/dL (0.2-1.0); TOTAL PROTEIN 8.7 g/dL (6.4-8.2)
[2019-02-07 07:19] LABS: PROTHROMBIN TIME PATIENT 12.6 SEC (11.7-14.0)
[2019-02-07] MEDS ORDERED: IPRATRPIUM/ALBUTEROL 0.5/2.5MG 3 ML NEBU. NEB ONE (07:30)
[2019-02-07] MEDS ORDERED: fentaNYL PF VIAL 100 MCG/2 ML VIAL IVP ONE ×2 (08:00→08:15)
[2019-02-07] MEDS ORDERED: ONDANSETRON PF 4 MG/2 ML VIAL. IV ONE (08:00)
[2019-02-07] MEDS: IV NORMAL SALINE 1000ML BAG 1,000 ML IV SCH ×2 (08:09→14:49)
--- NOTE | 2019-02-07 08:16 | PDOC1 ---
History and Physical Date of Admission Date of Admission DATE: 02/07/19 TIME: 08:11 Identification/Chief Complaint Chief Complaint Nausea and vomiting Source Source: Patient History of Present Illness History of Present Illness Ms Massey is a 73yo F w/ PMHx Arthritis, Asthma, Diabetes-Type II, Heart Disease, Hypertension, TIA, neuropathy who was seen multiple times recently in ED for falls and bilateral LE weakness. She had been released from the hospital for very similar things twice this year. She went to SNF this last stay and went home, notes she has declined even further since then and is now unable to walk at all. 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 Was seen by neurology, recommended outpatient MRI. Now she presents with complaining of vomiting blood. Patient complaining of 4 episodes of coffee-ground material since last night until 4 episodes of nonbloody stool without abdominal pain, dizziness, palpitation, chest pain, fever and chills, urinary symptom. Patient complaining of low back pain and denies history of GI bleed or taking anticoagulation medication and easy bruising and other source of bleeding. Past Medical History Cardiovascular: HTN Musculoskeletal: low back pain, Other Rheumatologic: Rheumatoid arthritis Endocrine: Diabetes Past Surgical History Past Surgical History: Other Family History Family History: No Significant, Kidney Disease Social History Smoke: No ALCOHOL: none Drugs: None Current Medications Current Medications Current Medications Sodium Chloride 1,000 ml @ 1,000 mls/hr 1X ONCE IV Last administered on 02/07/19at 07:45; Start 02/07/19 at 06:30; Stop 02/07/19 at 07:29; Status DC Pantoprazole Sodium (PROTONIX VIAL for IV PUSH) 40 mg 1X ONCE IVP Last administered on 02/07/19at 07:42; Start 02/07/19 at 06:30; Stop 02/07/19 at 06:31; Status DC Albuterol/ Ipratropium (Duoneb) 3 ml 1X ONCE NEB Last administered on 02/07/19at 07:43; Start 02/07/19 at 07:30; Stop 02/07/19 at 07:31; Status DC Fentanyl Citrate (Fentanyl 2ml Vial) 50 mcg 1X ONCE IVP Last administered on 02/07/19at 08:01; Start 02/07/19 at 08:00; Stop 02/07/19 at 08:01; Status DC Ondansetron HCl (Zofran) 4 mg 1X ONCE IV Last administered on 02/07/19at 08:00; Start 02/07/19 at 08:00; Stop 02/07/19 at 08:01; Status DC Active Scripts Active Vitamin D3 (Cholecalciferol (Vitamin D3)) 5,000 Unit Capsule 5,000 Unit PO DAILY 30 Days Miralax (Polyethylene Glycol 3350) 17 Gm Powd.pack 1 Packet PO DAILY Lyrica (Pregabalin) 100 Mg Capsule 1 Cap PO BID 30 Days Reported Percocet 7.5-325 Mg Tablet (Oxycodone/Acetaminophen) 1 Each Tablet 2 Tab PO PRN TID PRN Proair Hfa Inhaler (Albuterol Sulfate) 8.5 Gm Hfa.aer.ad 2 Puff INH PRN Q6HRS P RN Amitriptyline Hcl 10 Mg Tablet 6 Tab PO QHS Glimepiride 4 Mg Tablet 1 Tab PO DAILYWBKFT Compazine (Prochlorperazine Maleate) 10 Mg Tablet 10 Mg PO PRN Q8HRS PRN Diclofenac Sodium 75 Mg Tablet.dr 1 Tab PO BID Pravastatin Sodium 40 Mg Tablet 1 Tab PO QHS Clonidine Hcl 0.3 Mg Tablet 1 Tab PO BID Labetalol Hcl 200 Mg Tablet 1 Tab PO BID Allergies Allergies: Coded Allergies: No Known Drug Allergies (Unverified , 06/10/17) ROS General: YES: Fatigue, Malaise, Appetite; No: Chills, Night Sweats, Other PSYCHOLOGICAL ROS: No: Anxiety, Behavioral Disorder, Concentration difficultie, Decreased libido, Depression, Disorientation, Hallucinations, Hostility, Irritablity, Memory difficulties, Mood Swings, Obsessive thoughts, Physical abus e, Sexual abuse, Sleep disturbances, Suicidal ideation, Other Eyes: No Blurry vision, No Decreased vision, No Double vision, No Dry eyes, No Excessive tearing, No Eye Pain, No Itchy Eyes, No Loss of vision, No Photophobia, No Scotomata, No Uses contacts, No Uses glasses, No Other HEENT: No: Heacaches, Visual Changes, Hearing change, Nasal congestion, Nasal discharge, Oral lesions, Sinus pain, Sore Throat, Epistaxis, Sneezing, Snoring, Tinnitus, Vertigo, Vocal changes, Other ALLERGY AND IMMUNOLOGY: No: Hives, Insect Bite Sensitivity, Itchy/Watery Eyes, Nasal Congestion, Post Nasal Drip, Seasonal Allergies, Other Hematological and Lymphatic: No: Bleeding Problems, Blood Clots, Blood Transfusions, Brusing, Night Sweats, Pallor, Swollen Lymph Nodes, Other ENDOCRINE: No: Breast Changes, Galactorrhea, Hair Pattern Changes, Hot Flashes, Malaise/lethargy, Mood Swings, Palpitations, Polydipsia/polyuria, Skin Changes, Temperature Intolerance, Unexpected Weight Changes, Other Breast: No New/Changing Breast Lumps, No Nipple changes, No Nipple discharge, No Other Respiratory: No: Cough, Hemoptysis, Orthopnea, Pleuritic Pain, Shortness of breath, SOB with excertion, Sputum Changes, Stridor, Tachypnea, Wheezing, Other Cardiovascular: No Chest Pain, No Palpitations, No Orthopnea, No Paroxysmal Noc. Dyspnea, No Edema, No Lt Headedness, No Other Gastrointestinal: Yes Nausea, Yes Vomiting, Yes Abdominal Pain; No Diarrhea, No Constipation, No Melena, No Hematochezia, No Other Genitourinary: No Dysuria, No Frequency, No Incontinence, No Hematuria, No Retention, No Discharge, No Urgency, No Pain, No Flank Pain, No Other, No , No , No , No , No , No , No Musculoskeletal: Yes Gait Disturbance; No Joint Pain, No Joint Stiffness, No Joint Swelling, No Muscle Pain, No Muscular Weakness, No Pain In:, No Swelling In:, No Other Neurological: Yes Dizziness; No Behavorial Changes, No Bowel/Bladder ControlChng, No Confusion, No Gait Disturbance, No Headaches, No Impaired Coord/balance, No Memory Loss, No Numbness/Tingling, No Seizures, No Speech Problems, No Tremors, No Visual Changes, No Weakness, No Other Skin: No Dry Skin, No Eczema, No Hair Changes, No Lumps, No Mole Changes, No Mottling, No Nail Changes, No Pruritus, No Rash, No Skin Lesion Changes, No Other, No Acne Physical Exam General: Alert, Oriented X3, Cooperative, No acute distress HEENT: Atraumatic, PERRLA, EOMI, Mucous membr. moist/pink Lungs: Clear to auscultation, Normal air movement Heart: S1S2, RRR, no gallops, no murmurs Abdomen: Normal bowel sounds, Soft, No tenderness, No hepatosplenomegaly, No masses Rectal Exam: not examined Extremities: No clubbing, No cyanosis, No edema, Normal pulses, No tenderness/swelling Skin: No rashes, No breakdown, No significant lesion Neuro: Normal speech, Strength at 5/5 X4 ext, Normal tone, Sensation intact, Cranial nerves 3-12 NL, Reflexes 2+ Psych/Mental Status: Mental status NL, Mood NL Vitals Vitals Vital Signs Date Time Temp Pulse Resp B/P (MAP) Pulse Ox O2 Delivery O2 Flow Rate FiO2 02/07/19 08:01 16 97 Room Air 02/07/19 06:00 98.8 105 174/119 (137) 98.8 Labs Labs Laboratory Tests Test 02/07/19 06:40 White Blood Count 8.4 x10^3/uL (4.0-11.0) Red Blood Count 4.57 x10^6/uL (3.50-5.40) Hemoglobin 14.4 g/dL (12.0-15.5) Hematocrit 43.4 % (36.0-47.0) Mean Corpuscular Volume 95 fL (79-100) Mean Corpuscular Hemoglobin 32 pg (25-35) Mean Corpuscular Hemoglobin Concent 33 g/dL (31-37) Red Cell Distribution Width 12.6 % (11.5-14.5) Platelet Count 250 x10^3/uL (140-400) Neutrophils (%) (Auto) 76 % (31-73) Lymphocytes (%) (Auto) 19 % (24-48) Monocytes (%) (Auto) 4 % (0-9) Eosinophils (%) (Auto) 0 % (0-3) Basophils (%) (Auto) 1 % (0-3) Neutrophils # (Auto) 6.4 x10^3/uL (1.8-7.7) Lymphocytes # (Auto) 1.6 x10^3/uL (1.0-4.8) Monocytes # (Auto) 0.4 x10^3/uL (0.0-1.1) Eosinophils # (Auto) 0.0 x10^3/uL (0.0-0.7) Basophils # (Auto) 0.1 x10^3/uL (0.0-0.2) Prothrombin Time 12.6 SEC (11.7-14.0) Prothromb Time International Ratio 1.0 (0.8-1.1) Activated Partial Thromboplast Time 26 SEC (24-38) Sodium Level 143 mmol/L (136-145) Potassium Level 4.4 mmol/L (3.5-5.1) Chloride Level 103 mmol/L (98-107) Carbon Dioxide Level 25 mmol/L (21-32) Anion Gap 15 (6-14) Blood Urea Nitrogen 10 mg/dL (7-20) Creatinine 0.9 mg/dL (0.6-1.0) Estimated GFR (Cockcroft-Gault) 73.9 BUN/Creatinine Ratio 11 (6-20) Glucose Level 228 mg/dL (70-99) Lactic Acid Level 1.3 mmol/L (0.4-2.0) Calcium Level 11.2 mg/dL (8.5-10.1) Total Bilirubin 0.6 mg/dL (0.2-1.0) Aspartate Amino Transf (AST/SGOT) 14 U/L (15-37) Alanine Aminotransferase (ALT/SGPT) 17 U/L (14-59) Alkaline Phosphatase 121 U/L (46-116) Troponin I Quantitative < 0.017 ng/mL (0.000-0.055) QB-Ome-O-Type Natriuretic Peptide 271 pg/mL (0-449) Total Protein 8.7 g/dL (6.4-8.2) Albumin 4.3 g/dL (3.4-5.0) Albumin/Globulin Ratio 1.0 (1.0-1.7) Lipase 55 U/L (73-393) Laboratory Tests Test 02/07/19 06:40 White Blood Count 8.4 x10^3/uL (4.0-11.0) Red Blood Count 4.57 x10^6/uL (3.50-5.40) Hemoglobin 14.4 g/dL (12.0-15.5) Hematocrit 43.4 % (36.0-47.0) Mean Corpuscular Volume 95 fL (79-100) Mean Corpuscular Hemoglobin 32 pg (25-35) Mean Corpuscular Hemoglobin Concent 33 g/dL (31-37) Red Cell Distribution Width 12.6 % (11.5-14.5) Platelet Count 250 x10^3/uL (140-400) Neutrophils (%) (Auto) 76 % (31-73) Lymphocytes (%) (Auto) 19 % (24-48) Monocytes (%) (Auto) 4 % (0-9) Eosinophils (%) (Auto) 0 % (0-3) Basophils (%) (Auto) 1 % (0-3) Neutrophils # (Auto) 6.4 x10^3/uL (1.8-7.7) Lymphocytes # (Auto) 1.6 x10^3/uL (1.0-4.8) Monocytes # (Auto) 0.4 x10^3/uL (0.0-1.1) Eosinophils # (Auto) 0.0 x10^3/uL (0.0-0.7) Basophils # (Auto) 0.1 x10^3/uL (0.0-0.2) Prothrombin Time 12.6 SEC (11.7-14.0) Prothromb Time International Ratio 1.0 (0.8-1.1) Activated Partial Thromboplast Time 26 SEC (24-38) Sodium Level 143 mmol/L (136-145) Potassium Level 4.4 mmol/L (3.5-5.1) Chloride Level 103 mmol/L (98-107) Carbon Dioxide Level 25 mmol/L (21-32) Anion Gap 15 (6-14) Blood Urea Nitrogen 10 mg/dL (7-20) Creatinine 0.9 mg/dL (0.6-1.0) Estimated GFR (Cockcroft-Gault) 73.9 BUN/Creatinine Ratio 11 (6-20) Glucose Level 228 mg/dL (70-99) Lactic Acid Level 1.3 mmol/L (0.4-2.0) Calcium Level 11.2 mg/dL (8.5-10.1) Total Bilirubin 0.6 mg/dL (0.2-1.0) Aspartate Amino Transf (AST/SGOT) 14 U/L (15-37) Alanine Aminotransferase (ALT/SGPT) 17 U/L (14-59) Alkaline Phosphatase 121 U/L (46-116) Troponin I Quantitative < 0.017 ng/mL (0.000-0.055) SC-Tkt-K-Type Natriuretic Peptide 271 pg/mL (0-449) Total Protein 8.7 g/dL (6.4-8.2) Albumin 4.3 g/dL (3.4-5.0) Albumin/Globulin Ratio 1.0 (1.0-1.7) Lipase 55 U/L (73-393) Images Images CT abdomen/pelvis - No acute abnormality is seen. VTE Prophylaxis Ordered VTE Prophylaxis Devices: Yes VTE Pharmacological Prophylaxi: Contraindicated Assessment/Plan Assessment/Plan A/P: Hematemesis - on ASA only, just had recently EGD. Will consult GI. likely needs repeat Multiple falls - was just discharged with home health previously, to ED multiple visits for falls. 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 - no sonographic evidence of deep venous thrombosis involving the visualized deep venous structures of either lower extremity. Failure to thrive MILD HYPERNATREMIA - hypovolemic VOLUME DEPLETED, dehydration Gait instability Multilevel degenerative change throughout the lumbar spine and lower thoracic spine, resulting in stenosis - Grade 1 anterolisthesis of L5 on S1 and retro listhesis of L2 on L3. ELEVATED ESR Bilateral leg weakness Anemia - likely of chronic disease FEN - NPO PPX - PPI, SCDs FULL CODE Dispo - inpatient for UGIB LALO SMITH MD Feb 07, 2019 08:16
[2019-02-07] MEDS: ONDANSETRON PF 4 MG/2 ML VIAL. IV PRN ×2 (08:40→17:05)
[2019-02-07] MEDS ORDERED: PROCHLORPERAZINE 10 MG/2 ML VIAL. IM ONE (08:45)
[2019-02-07] MEDS ORDERED: MORPHINE SULFATE 4 MG/ML VIAL. IM ONE (08:45)
[2019-02-07 08:58] LABS: GASTRIC OB PAT POSITIVE (NEG)
--- NOTE | 2019-02-07 09:07 | RAD ---
CT scan of the lumbar spine without contrast 02/07/2019 CLINICAL HISTORY: Low back pain. TECHNIQUE: 3 mm reconstructed sagittal, axial and coronal images of the lumbar spine were obtained from the data set generated from the patient's CT scan of the abdomen and pelvis. One or more of the following individualized dose reduction techniques were utilized for this study: 1. Automated exposure control. 2. Adjustment of the mA and/or kV according to patient size. 3. Use of iterative reconstruction technique. FINDINGS: Sagittal and coronal reconstructed images demonstrate very mild S-shaped curvature of the thoracolumbar spine. The patient appears to have transitional vertebral anatomy. For the purposes of this dictation the transitional vertebral segment will be referred to by the letter T. Mild anterolisthesis of L5 in relation to T is seen. The transitional vertebrae is sacralized. Degenerative changes are seen involving the lower thoracic and throughout the lumbar disc spaces consisting of vertebral endplate sclerosis and minimal to mild anterior vertebral body osteophyte formation. Vacuum disc phenomenon are seen scattered throughout the thoracic lumbar disc spaces. Mild disc space narrowing is seen at L5-T. Atherosclerotic calcification of the abdominal aorta and its branches is noted. No fracture or subluxation of the lumbar vertebrae is seen. The changes of degenerative disc disease are seen throughout the lumbar disc spaces. These consist of mild generalized disc bulges and degenerative changes involving the facet joints along with mild to moderate ligamentum flavum hypertrophy. These findings do not result in definite significant central spinal canal stenosis. Mild to moderate right greater than left neural foraminal stenosis is seen at L2-3. Mild to moderate bilateral neural foraminal stenosis is seen at L5-T. IMPRESSION: Degenerative changes are seen involving the lumbar spine as discussed above. No acute osseous abnormality is seen. Electronically signed by: Rico Gillis MD (02/07/2019 9:04 AM) [facility]
--- NOTE | 2019-02-07 09:15 | RAD ---
CT scan of the abdomen and pelvis without contrast 02/07/2019 CLINICAL HISTORY: Abdominal pain. TECHNIQUE: Unenhanced, contiguous, 2 mm axial sections were obtained through the abdomen and pelvis. One or more of the following individualized dose reduction techniques were utilized for this study: 1. Automated exposure control. 2. Adjustment of the mA and/or kV according to patient size. 3. Use of iterative reconstruction technique. FINDINGS: Images through the lung bases demonstrate mild cardiomegaly. Minimal dependent subsegmental atelectasis is seen bilaterally. The liver, spleen, pancreas, adrenal glands and left kidney are within normal limits. A 4.4 cm rounded low-attenuation lesion is seen involving the superior/midpole of the right kidney. This likely represents a cyst. Atherosclerotic calcification of the abdominal aorta is seen. The abdominal aorta tapers normally. Surgical clips are seen within the gallbladder fossa consistent with a cholecystectomy. Air and stool are seen throughout the colon. The appendix is well-visualized and is within normal limits. No free fluid or free air is seen within the abdomen. There is no evidence of bowel obstruction. Images through the pelvis demonstrate the urinary bladder distended with urine. Calcifications are seen within the pelvis consistent with phleboliths. No free fluid is seen. Very mild S-shaped curvature of the thoracolumbar spine is seen. Degenerative changes are seen involving the thoracic spine and lumbar spine along with both hips. IMPRESSION: No acute abnormality is seen. Electronically signed by: Rico Gillis MD (02/07/2019 9:12 AM) [facility]
[2019-02-07 09:57] VITALS: BP 201/109
[2019-02-07] MEDS ORDERED: ASPIRIN CHEWABLE 81 MG TABLET. PO SCH (10:00)
[2019-02-07] MEDS: amLODIPine BESYLATE 5 MG TABLET PO SCH (10:47)
[2019-02-07 11:00] VITALS: BP 208/97
--- NOTE | 2019-02-07 11:53 | PDOC2 ---
GI CONSULT Reason For Consult: UGI bleeding. HPI: HPI: 74 y /o female with 2-day h/o epigastric pain, N and V. Describes "brown" emesis. No overt blood or clots. Denies melena. Gastroccult positive. H/o heartburn w/o dysphagia; takes pantoprazole prn nausea, not daily. Does take diclofenac daily. Denies prior ulcer or EGD. S/p chepe. No liver or pancreatic history. Former smoker. Rare if any alcohol. Typically free of diarrhea or constipation. No hematochezia. Wt/appetite usually OK. Had colonoscopy >10 years ago recalled as normal. Was seen in the office by Dr. Carrasquillo in November with plans to have screening colon at some point. GIFH negative. CT A/P in ER essentially negative save post-op chepe and hyster. PMH: PMH: HTN, Asthma, CVA, DM, HLP, OA, CKD, cataracts. S/p hysterectomy, "lung surgery" FH: Family History: CAD Social History: Smoke: Quit ALCOHOL: rare Drugs: None ROS: GEN: Denies fevers, chills, sweats HEENT: Denies blurred vision, sore throat CV: Denies chest pain RESP: Denies shortness of air, cough GI: Per HPI : Denies hematuria, dysuria ENDO: Denies weight changes NEURO: Denies confusion, dizziness MSK: Denies weakness, joint pain/swelling SKIN: Denies jaundice, pruritus Vitals: Vitals: Vital Signs Date Time Temp Pulse Resp B/P (MAP) Pulse Ox O2 Delivery O2 Flow Rate FiO2 02/07/19 11:00 99.3 113 16 208/97 (134) 97 Room Air 99.3 Labs: Labs: Laboratory Tests Test 02/07/19 06:40 02/07/19 08:00 02/07/19 08:20 White Blood Count 8.4 x10^3/uL (4.0-11.0) Red Blood Count 4.57 x10^6/uL (3.50-5.40) Hemoglobin 14.4 g/dL (12.0-15.5) Hematocrit 43.4 % (36.0-47.0) Mean Corpuscular Volume 95 fL (79-100) Mean Corpuscular Hemoglobin 32 pg (25-35) Mean Corpuscular Hemoglobin Concent 33 g/dL (31-37) Red Cell Distribution Width 12.6 % (11.5-14.5) Platelet Count 250 x10^3/uL (140-400) Neutrophils (%) (Auto) 76 % (31-73) Lymphocytes (%) (Auto) 19 % (24-48) Monocytes (%) (Auto) 4 % (0-9) Eosinophils (%) (Auto) 0 % (0-3) Basophils (%) (Auto) 1 % (0-3) Neutrophils # (Auto) 6.4 x10^3/uL (1.8-7.7) Lymphocytes # (Auto) 1.6 x10^3/uL (1.0-4.8) Monocytes # (Auto) 0.4 x10^3/uL (0.0-1.1) Eosinophils # (Auto) 0.0 x10^3/uL (0.0-0.7) Basophils # (Auto) 0.1 x10^3/uL (0.0-0.2) Prothrombin Time 12.6 SEC (11.7-14.0) Prothromb Time International Ratio 1.0 (0.8-1.1) Activated Partial Thromboplast Time 26 SEC (24-38) Sodium Level 143 mmol/L (136-145) Potassium Level 4.4 mmol/L (3.5-5.1) Chloride Level 103 mmol/L (98-107) Carbon Dioxide Level 25 mmol/L (21-32) Anion Gap 15 (6-14) Blood Urea Nitrogen 10 mg/dL (7-20) Creatinine 0.9 mg/dL (0.6-1.0) Estimated GFR (Cockcroft-Gault) 73.9 BUN/Creatinine Ratio 11 (6-20) Glucose Level 228 mg/dL (70-99) Lactic Acid Level 1.3 mmol/L (0.4-2.0) Calcium Level 11.2 mg/dL (8.5-10.1) Total Bilirubin 0.6 mg/dL (0.2-1.0) Aspartate Amino Transf (AST/SGOT) 14 U/L (15-37) Alanine Aminotransferase (ALT/SGPT) 17 U/L (14-59) Alkaline Phosphatase 121 U/L (46-116) Troponin I Quantitative < 0.017 ng/mL (0.000-0.055) PH-Ann-C-Type Natriuretic Peptide 271 pg/mL (0-449) Total Protein 8.7 g/dL (6.4-8.2) Albumin 4.3 g/dL (3.4-5.0) Albumin/Globulin Ratio 1.0 (1.0-1.7) Lipase 55 U/L (73-393) Phosphorus Level 2.6 mg/dL (2.6-4.7) Gastric Fluid Occult Blood Positive (NEG) Allergies: Coded Allergies: No Known Drug Allergies (Unverified , 06/10/17) Medications: Current Medications Medications (Trade) Dose Ordered Sig/Janay Route PRN Reason Start Time Stop Time Status Last Admin Dose Admin Sodium Chloride 1,000 ml @ 1,000 mls/hr 1X ONCE IV 02/07/19 06:30 02/07/19 07:29 DC 02/07/19 07:45 Pantoprazole Sodium (PROTONIX VIAL for IV PUSH) 40 mg 1X ONCE IVP 02/07/19 06:30 02/07/19 06:31 DC 02/07/19 07:42 Albuterol/ Ipratropium (Duoneb) 3 ml 1X ONCE NEB 02/07/19 07:30 02/07/19 07:31 DC 02/07/19 07:43 Fentanyl Citrate (Fentanyl 2ml Vial) 50 mcg 1X ONCE IVP 02/07/19 08:00 02/07/19 08:01 DC 02/07/19 08:01 Ondansetron HCl (Zofran) 4 mg 1X ONCE IV 02/07/19 08:00 02/07/19 08:01 DC 02/07/19 08:00 Fentanyl Citrate (Fentanyl 2ml Vial) 50 mcg 1X ONCE IVP 02/07/19 08:15 02/07/19 08:24 DC 02/07/19 08:40 Ondansetron HCl (Zofran) 4 mg PRN Q8HRS PRN IV NAUSEA/VOMITING 02/07/19 08:15 02/08/19 08:14 02/07/19 08:40 Sodium Chloride 1,000 ml @ 150 mls/hr Q6H40M IV 02/07/19 08:09 02/08/19 08:08 02/07/19 08:09 Morphine Sulfate (Morphine Sulfate) 4 mg 1X ONCE IM 02/07/19 08:45 02/07/19 08:48 DC 02/07/19 08:53 Prochlorperazine Edisylate (Compazine) 5 mg 1X ONCE IM 02/07/19 08:45 02/07/19 08:48 DC 02/07/19 08:52 Amlodipine Besylate (Norvasc) 5 mg DAILY PO 02/07/19 10:00 02/07/19 10:47 Aspirin (Children'S Aspirin) 81 mg DAILYWBKFT PO 02/07/19 10:00 02/07/19 10:45 PE: GEN: NAD HEENT: Atraumatic, PERRLA LUNGS: CTAB HEART: RRR, no murmurs ABD: NABS, S/ND/mild epigastric tenderness, no masses EXTREMITY: No edema SKIN: No rashes, no jaundice NEURO/PSYCH: A & O 3 A/P: A/P: IMP: "Hematemesis", epigastric pain. Unclear much bleeding of note; history and labs do not suggest major episode. Does take daily NSAID and only prn PPI, so at risk for NSAID injury. CRC screening. Normal exam historically quite a while ago. GERD S/p chepe. REC: Ice chips po, monitor for any overt bleeding. Continue PPI. EGD 02/08. Either I or Dr. Carrasquillo will perform. Have screening colonoscopy at some point. Thanks. CHEPE FIELDS MD Feb 07, 2019 11:53
[2019-02-07] MEDS: traMADol 50 MG TABLET PO PRN ×2 (12:38→18:34)
[2019-02-07] MEDS: HYDROmorphone 2 MG/ML VIAL IV PRN ×2 (14:41→19:52)
[2019-02-07 15:00] VITALS: BP 187/100
[2019-02-07 19:49] VITALS: BP 206/100
[2019-02-07] MEDS: hydrALAZINE 20 MG/ML VIAL. IVP PRN (19:52)
[2019-02-07 23:22] VITALS: BP 192/96
[2019-02-08] VITALS (14 sets, daily range): BP systolic 130–182; BP diastolic 70–98
[2019-02-08] MEDS: IV NORMAL SALINE 1000ML BAG 1,000 ML IV SCH ×2 (00:18→07:07)
[2019-02-08] MEDS: HYDROmorphone 2 MG/ML VIAL IV PRN ×4 (00:27→20:10)
[2019-02-08] MEDS: hydrALAZINE 20 MG/ML VIAL. IVP PRN ×4 (00:27→23:09)
--- NOTE | 2019-02-08 06:21 | EKG ---
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
[2019-02-08 06:45] LABS: BILIRUBIN,URINE NEGATIVE (NEG); CLARITY,URINE CLEAR; COLOR,URINE YELLOW; NITRITE,URINE POSITIVE (NEG); PH,URINE 5.5; PROTEIN,URINE 30 mg/dL (NEG-TRACE)
[2019-02-08 06:55] LABS: SQUAMOUS EPITHELIAL CELL,UR MOD /LPF
[2019-02-08 06:56] LABS: BACTERIA,URINE MANY /HPF (0-FEW); WBC,URINE TNTC /HPF (0-4)
[2019-02-08 06:57] LABS: RBC,URINE OCC /HPF (0-2)
[2019-02-08] MEDS: ONDANSETRON PF 4 MG/2 ML VIAL. IV PRN (07:57)
[2019-02-08] MEDS: amLODIPine BESYLATE 5 MG TABLET PO SCH (07:59)
[2019-02-08] MEDS ORDERED: fentaNYL PF VIAL 100 MCG/2 ML VIAL IV PRN ×2 (10:45)
[2019-02-08] MEDS ORDERED: MIDAZOLAM HCL/PF 2 MG/2 ML VIAL. IV PRN (10:45)
[2019-02-08] MEDS ORDERED: LIDOCAINE 1% PF 2 ML VIAL. ID PRN (10:45)
--- NOTE | 2019-02-08 10:47 | PDOC ---
PROGRESS NOTES History of Present Illness History of Present Illness Images Images CT abdomen/pelvis - No acute abnormality is seen. VTE Prophylaxis Ordered VTE Prophylaxis Devices: Yes VTE Pharmacological Prophylaxi: Contraindicated Assessment/Plan Assessment/Plan A/P: Hematemesis - on ASA only, just had recently EGD. consult GI. Multiple falls - was just discharged with home health previously, to ED multiple visits for falls. 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 - no sonographic evidence of deep venous thrombosis involving the visualized deep venous structures of either lower extremity. Failure to thrive MILD HYPERNATREMIA - hypovolemic VOLUME DEPLETED, dehydration Gait instability Multilevel degenerative change throughout the lumbar spine and lower thoracic spine, resulting in stenosis - Grade 1 anterolisthesis of L5 on S1 and retrolisthesis of L2 on L3. ELEVATED ESR Bilateral leg weakness Anemia - likely of chronic disease FEN - NPO PPX - PPI, SCDs FULL CODE Dispo - inpatient for UGIB Operative Note Operative Note 02/08 dr ayon Operative Note EGD with bx Meds propofol per anesthesia Pre-op dx hematemesis Post-op dx erosive esophagitis s/p bx Plan advance diet PPI therapy for acid suppression serial cbcs 27 min pt exam, chart review, > 50% of time spent with exam, chart review, pt care coordination Vitals Vitals Vital Signs Date Time Temp Pulse Resp B/P (MAP) Pulse Ox O2 Delivery O2 Flow Rate FiO2 02/08/19 07:59 119 174/88 02/08/19 07:59 Nasal Cannula 2.0 02/08/19 07:43 99.4 20 98 99.4 Physical Exam General: Alert, Oriented X3, Cooperative, No acute distress Heart: Regular rate Lungs: Clear Abdomen: Normal bowel sounds, Soft, No tenderness, No hepatosplenomegaly, No masses Extremities: No clubbing, No cyanosis, No edema, Normal pulses, No tende rness/swelling Skin: No rashes, No breakdown, No significant lesion Labs LABS PROCEDURE: CT ABDOMEN PELVIS WO CONTRAST CT scan of the abdomen and pelvis without contrast 02/07/2019 CLINICAL HISTORY: Abdominal pain. TECHNIQUE: Unenhanced, contiguous, 2 mm axial sections were obtained through the abdomen and pelvis. One or more of the following individualized dose reduction techniques were utilized for this study: 1. Automated exposure control. 2. Adjustment of the mA and/or kV according to patient size. 3. Use of iterative reconstruction technique. FINDINGS: Images through the lung bases demonstrate mild cardiomegaly. Minimal dependent subsegmental atelectasis is seen bilaterally. The liver, spleen, pancreas, adrenal glands and left kidney are within normal limits. A 4.4 cm rounded low-attenuation lesion is seen involving the superior/midpole of the right kidney. This likely represents a cyst. Atherosclerotic calcification of the abdominal aorta is seen. The abdominal aorta tapers normally. Surgical clips are seen within the gallbladder fossa consistent with a cholecystectomy. Air and stool are seen throughout the colon. The appendix is well-visualized and is within normal limits. No free fluid or free air is seen within the abdomen. There is no evidence of bowel obstruction. Images through the pelvis demonstrate the urinary bladder distended with urine. Calcifications are seen within the pelvis consistent with phleboliths. No free fluid is seen. Very mild S-shaped curvature of the thoracolumbar spine is seen. Degenerative changes are seen involving the thoracic spine and lumbar spine along with both hips. IMPRESSION: No acute abnormality is seen. Electronically signed by: Rico Gillis MD (02/07/2019 9:12 AM) [facility] Laboratory Tests Test 02/07/19 11:54 02/07/19 15:30 02/07/19 16:26 02/07/19 20:12 Glucose (Fingerstick) 180 mg/dL (70-99) 147 mg/dL (70-99) 178 mg/dL (70-99) Hemoglobin 13.4 g/dL (12.0-15.5) Test 02/08/19 06:10 02/08/19 07:18 Urine Collection Type Unknown Urine Color Yellow Urine Clarity Clear Urine pH 5.5 Urine Specific [place] 1.015 Urine Protein 30 mg/dL (NEG-TRACE) Urine Glucose (UA) Negative mg/dL (NEG) Urine Ketones (Stick) 40 mg/dL (NEG) Urine Blood Negative (NEG) Urine Nitrite Positive (NEG) Urine Bilirubin Negative (NEG) Urine Urobilinogen Dipstick 1.0 mg/dL (0.2 mg/dL) Urine Leukocyte Esterase Moderate (NEG) Urine RBC Occ /HPF (0-2) Urine WBC Tntc /HPF (0-4) Urine Squamous Epithelial Cells Mod /LPF Urine Bacteria Many /HPF (0-FEW) Urine Mucus Marked /LPF Glucose (Fingerstick) 165 mg/dL (70-99) Assessment and Plan Assessmemt and Plan Problems Medical Problems: (1) Hypercalcemia Status: Acute (2) Low back pain Status: Acute (3) Nausea and vomiting Status: Acute (4) Uncontrolled diabetes mellitus Status: Acute Comment Review of Relevant I have reviewed the following items jorge luis (where applicable) has been applied. Labs Laboratory Tests Test 02/07/19 06:40 02/07/19 08:00 02/07/19 08:20 02/07/19 11:54 White Blood Count 8.4 x10^3/uL (4.0-11.0) Red Blood Count 4.57 x10^6/uL (3.50-5.40) Hemoglobin 14.4 g/dL (12.0-15.5) Hematocrit 43.4 % (36.0-47.0) Mean Corpuscular Volume 95 fL (79-100) Mean Corpuscular Hemoglobin 32 pg (25-35) Mean Corpuscular Hemoglobin Concent 33 g/dL (31-37) Red Cell Distribution Width 12.6 % (11.5-14.5) Platelet Count 250 x10^3/uL (140-400) Neutrophils (%) (Auto) 76 % (31-73) Lymphocytes (%) (Auto) 19 % (24-48) Monocytes (%) (Auto) 4 % (0-9) Eosinophils (%) (Auto) 0 % (0-3) Basophils (%) (Auto) 1 % (0-3) Neutrophils # (Auto) 6.4 x10^3/uL (1.8-7.7) Lymphocytes # (Auto) 1.6 x10^3/uL (1.0-4.8) Monocytes # (Auto) 0.4 x10^3/uL (0.0-1.1) Eosinophils # (Auto) 0.0 x10^3/uL (0.0-0.7) Basophils # (Auto) 0.1 x10^3/uL (0.0-0.2) Prothrombin Time 12.6 SEC (11.7-14.0) Prothromb Time International Ratio 1.0 (0.8-1.1) Activated Partial Thromboplast Time 26 SEC (24-38) Sodium Level 143 mmol/L (136-145) Potassium Level 4.4 mmol/L (3.5-5.1) Chloride Level 103 mmol/L (98-107) Carbon Dioxide Level 25 mmol/L (21-32) Anion Gap 15 (6-14) Blood Urea Nitrogen 10 mg/dL (7-20) Creatinine 0.9 mg/dL (0.6-1.0) Estimated GFR (Cockcroft-Gault) 73.9 BUN/Creatinine Ratio 11 (6-20) Glucose Level 228 mg/dL (70-99) Lactic Acid Level 1.3 mmol/L (0.4-2.0) Calcium Level 11.2 mg/dL (8.5-10.1) Total Bilirubin 0.6 mg/dL (0.2-1.0) Aspartate Amino Transf (AST/SGOT) 14 U/L (15-37) Alanine Aminotransferase (ALT/SGPT) 17 U/L (14-59) Alkaline Phosphatase 121 U/L (46-116) Troponin I Quantitative < 0.017 ng/mL (0.000-0.055) DF-Erp-D-Type Natriuretic Peptide 271 pg/mL (0-449) Total Protein 8.7 g/dL (6.4-8.2) Albumin 4.3 g/dL (3.4-5.0) Albumin/Globulin Ratio 1.0 (1.0-1.7) Lipase 55 U/L (73-393) Phosphorus Level 2.6 mg/dL (2.6-4.7) 25-Hydroxy Vitamin D Total 28.4 ng/mL (30-100) Gastric Fluid Occult Blood Positive (NEG) Glucose (Fingerstick) 180 mg/dL (70-99) Test 02/07/19 15:30 02/07/19 16:26 02/07/19 20:12 02/08/19 06:10 Hemoglobin 13.4 g/dL (12.0-15.5) Glucose (Fingerstick) 147 mg/dL (70-99) 178 mg/dL (70-99) Urine Collection Type Unknown Urine Color Yellow Urine Clarity Clear Urine pH 5.5 Urine Specific [place] 1.015 Urine Protein 30 mg/dL (NEG-TRACE) Urine Glucose (UA) Negative mg/dL (NEG) Urine Ketones (Stick) 40 mg/dL (NEG) Urine Blood Negative (NEG) Urine Nitrite Positive (NEG) Urine Bilirubin Negative (NEG) Urine Urobilinogen Dipstick 1.0 mg/dL (0.2 mg/dL) Urine Leukocyte Esterase Moderate (NEG) Urine RBC Occ /HPF (0-2) Urine WBC Tntc /HPF (0-4) Urine Squamous Epithelial Cells Mod /LPF Urine Bacteria Many /HPF (0-FEW) Urine Mucus Marked /LPF Test 02/08/19 07:18 Glucose (Fingerstick) 165 mg/dL (70-99) Laboratory Tests Test 02/07/19 11:54 02/07/19 15:30 02/07/19 16:26 02/07/19 20:12 Glucose (Fingerstick) 180 mg/dL (70-99) 147 mg/dL (70-99) 178 mg/dL (70-99) Hemoglobin 13.4 g/dL (12.0-15.5) Test 02/08/19 06:10 02/08/19 07:18 Urine Collection Type Unknown Urine Color Yellow Urine Clarity Clear Urine pH 5.5 Urine Specific [place] 1.015 Urine Protein 30 mg/dL (NEG-TRACE) Urine Glucose (UA) Negative mg/dL (NEG) Urine Ketones (Stick) 40 mg/dL (NEG) Urine Blood Negative (NEG) Urine Nitrite Positive (NEG) Urine Bilirubin Negative (NEG) Urine Urobilinogen Dipstick 1.0 mg/dL (0.2 mg/dL) Urine Leukocyte Esterase Moderate (NEG) Urine RBC Occ /HPF (0-2) Urine WBC Tntc /HPF (0-4) Urine Squamous Epithelial Cells Mod /LPF Urine Bacteria Many /HPF (0-FEW) Urine Mucus Marked /LPF Glucose (Fingerstick) 165 mg/dL (70-99) Medications Current Medications Sodium Chloride 1,000 ml @ 1,000 mls/hr 1X ONCE IV Last administered on 02/07/19 07:45; Start 02/07/19 at 06:30; Stop 02/07/19 at 07:29; Status DC Pantoprazole Sodium (PROTONIX VIAL for IV PUSH) 40 mg 1X ONCE IVP Last administered on 02/07/19at 07:42; Start 02/07/19 at 06:30; Stop 02/07/19 at 06:31; Status DC Albuterol/ Ipratropium (Duoneb) 3 ml 1X ONCE NEB Last administered on 02/07/19at 07:43; Start 02/07/19 at 07:30; Stop 02/07/19 at 07:31; Status DC Fentanyl Citrate (Fentanyl 2ml Vial) 50 mcg 1X ONCE IVP Last administered on 02/07/19 08:01; Start 02/07/19 at 08:00; Stop 02/07/19 at 08:01; Status DC Ondansetron HCl (Zofran) 4 mg 1X ONCE IV Last administered on 02/07/19 08:00; Start 02/07/19 at 08:00; Stop 02/07/19 at 08:01; Status DC Fentanyl Citrate (Fentanyl 2ml Vial) 50 mcg 1X ONCE IVP Last administered on 02/07/19 08:40; Start 02/07/19 at 08:15; Stop 02/07/19 at 08:24; Status DC Ondansetron HCl (Zofran) 4 mg PRN Q8HRS PRN IV NAUSEA/VOMITING Last administered on 02/08/19 07:57; Start 02/07/19 at 08:15; Stop 02/08/19 at 08:1 4; Status DC Sodium Chloride 1,000 ml @ 150 mls/hr Q6H40M IV Last administered on 02/08/19 07:07; Start 02/07/19 at 08:09; Stop 02/08/19 at 08:08; Status DC Morphine Sulfate (Morphine Sulfate) 4 mg 1X ONCE IM Last administered on 02/07/19 08:53; Start 02/07/19 at 08:45; Stop 02/07/19 at 08:48; Status DC Prochlorperazine Edisylate (Compazine) 5 mg 1X ONCE IM Last administered on 02/07/19at 08:52; Start 02/07/19 at 08:45; Stop 02/07/19 at 08:48; Status DC Amlodipine Besylate (Norvasc) 5 mg DAILY PO Last administered on 02/08/19at 07:59; Start 02/07/19 at 10:00 Aspirin (Children'S Aspirin) 81 mg DAILYWBKFT PO Last administered on 02/07/19at 10:45; Start 02/07/19 at 10:00; Stop 02/07/19 at 15:05; Status DC Tramadol HCl (Ultram) 50 mg PRN Q6HRS PRN PO MILD TO MODERATE PAIN Last administered on 02/07/19at 18:34; Start 02/07/19 at 11:00 Hydromorphone HCl (Dilaudid) 1 mg PRN Q4HRS PRN IV MODERATE TO SEVERE PAIN Last administered on 02/08/19at 07:59; Start 02/07/19 at 11:00 Hydralazine HCl (Apresoline Inj) 10 mg PRN Q4HRS PRN IVP ELEVATED BP, SEE COMMENTS Last administered on 02/08/19at 07:59; Start 02/07/19 at 15:15 Ondansetron HCl (Zofran) 4 mg PRN Q6HRS PRN IVP NAUSEA/VOMITING; Start 02/07/19 at 15:15 Midazolam HCl (Versed) 2 mg PRN 1X PRN IV PRIOR TO PROCEDURE; Start 02/08/19 at 10:45; Stop 02/09/19 at 10:44 Fentanyl Citrate (Fentanyl 2ml Vial) 25 mcg PRN Q5MIN PRN IV X 2 DOSES FOR PAIN; Start 02/08/19 at 10:45; Stop 02/09/19 at 10:44 Fentanyl Citrate (Fentanyl 2ml Vial) 50 mcg PRN Q5MIN PRN IV X 2 DOSES FOR PAIN; Start 02/08/19 at 10:45; Stop 02/09/19 at 10:44 Ringer's Solution 1,000 ml @ 125 mls/hr Q8H IV ; Start 02/08/19 at 10:39; Stop 02/08/19 at 22:38 Lidocaine HCl (Xylocaine-Mpf 1% 2ml Vial) 2 ml 1X PRN PRN ID IV START; Start 02/08/19 at 10:45; Stop 02/09/19 at 10:44 Active Scripts Active Vitamin D3 (Cholecalciferol (Vitamin D3)) 5,000 Unit Capsule 5,000 Unit PO DAILY 30 Days Miralax (Polyethylene Glycol 3350) 17 Gm Powd.pack 1 Packet PO DAILY Lyrica (Pregabalin) 100 Mg Capsule 1 Cap PO BID 30 Days Reported Percocet 7.5-325 Mg Tablet (Oxycodone/Acetaminophen) 1 Each Tablet 2 Tab PO PRN TID PRN Proair Hfa Inhaler (Albuterol Sulfate) 8.5 Gm Hfa.aer.ad 2 Puff INH PRN Q6HRS PRN Amitriptyline Hcl 10 Mg Tablet 6 Tab PO QHS Glimepiride 4 Mg Tablet 1 Tab PO DAILYWBKFT Compazine (Prochlorperazine Maleate) 10 Mg Tablet 10 Mg PO PRN Q8HRS PRN Diclofenac Sodium 75 Mg Tablet.dr 1 Tab PO BID Pravastatin Sodium 40 Mg Tablet 1 Tab PO QHS Clonidine Hcl 0.3 Mg Tablet 1 Tab PO BID Labetalol Hcl 200 Mg Tablet 1 Tab PO BID Vitals/I & O Vital Sign - Last 24 Hours 02/07/19 02/07/19 02/07/19 02/07/19 11:00 12:38 13:41 14:41 Temp 99.3 99.3 Pulse 113 Resp 16 B/P (MAP) 208/97 (134) Pulse Ox 97 97 97 97 O2 Delivery Room Air Room Air Room Air Room Air 02/07/19 02/07/19 02/07/19 02/07/19 15:00 15:12 18:34 19:49 Temp 98.4 99.5 98.4 99.5 Pulse 123 112 Resp 12 20 B/P (MAP) 187/100 (129) 206/100 (135) Pulse Ox 97 97 97 99 O2 Delivery Nasal Cannula Room Air Room Air Nasal Cannula O2 Flow Rate 0.5 0.5 0.5 2.0 02/07/19 02/07/19 02/07/19 02/07/19 19:52 19:52 19:54 20:00 Pulse 112 Resp 17 17 B/P (MAP) 206/100 Pulse Ox 99 99 O2 Delivery Nasal Cannula Nasal Cannula Nasal Cannula O2 Flow Rate 2.0 2.0 2.0 02/07/19 02/07/19 02/08/197/19 20:26 23:22 00:27 00:27 Temp 99.4 99.4 Pulse 111 111 Resp 16 20 16 B/P (MAP) 192/96 (128) 192/96 Pulse Ox 99 99 99 O2 Delivery Nasal Cannula Nasal Cannula Nasal Cannula O2 Flow Rate 2.0 2.0 02/08/19 02/08/19 02/08/19 02/08/19 01:00 03:28 07:43 07:59 Temp 99.4 99.4 99.4 99.4 Pulse 120 119 119 Resp 15 20 20 B/P (MAP) 142/70 (94) 174/88 (116) 174/88 Pulse Ox 99 99 98 O2 Delivery Nasal Cannula Room Air Nasal Cannula O2 Flow Rate 2.0 2.0 02/08/19 02/08/19 07:59 07:59 Pulse 119 B/P (MAP) 174/88 O2 Delivery Nasal Cannula O2 Flow Rate 2.0 Intake and Output 02/07/19 02/07/19 02/08/19 15:00 23:00 07:00 Intake Total 120 ml 60 ml 2049 ml Output Total 200 ml 250 ml Balance -80 ml -190 ml 2049 ml BLAYNE MILES MD Feb 08, 2019 10:47
[2019-02-08] MEDS: IV RINGERS,LACTATED 1000ML 1,000 ML IV SCH ×2 (12:10→18:39)
[2019-02-08 13:13] LABS: CALCIUM PTH 11.2 mg/dL (8.7-10.3); CREATININE PTH 0.84 mg/dL (0.57-1.00); PHOSPHORUS PTH 1.8 mg/dL (2.5-4.5); PTH INTACT 82 pg/mL (15-65)
[2019-02-08] MEDS ORDERED: PROPOFOL 20 ML IV ONE (13:16)
[2019-02-08] MEDS ORDERED: LIDOCAINE 2% PF 5 ML VIAL. ONE (13:16)
--- NOTE | 2019-02-08 13:29 | PDOC4 ---
Operative Note Operative Note EGD with bx Meds propofol per anesthesia Pre-op dx hematemesis Post-op dx erosive esophagitis s/p bx Plan advance diet PPI therapy for acid suppression serial cbcs VALERIANO BILLNIGS MD Feb 08, 2019 13:29
[2019-02-08] MEDS: ONDANSETRON PF 4 MG/2 ML VIAL. IVP PRN ×2 (14:41→23:42)
[2019-02-08] MEDS: PANTOPRAZOLE 40 MG TABLET.DR. PO SCH (14:41)
[2019-02-08] MEDS ORDERED: cloNIDine TTS-2 1 PATCH PATCH TD SCH (18:00)
[2019-02-09] VITALS (20 sets, daily range): BP systolic 147–203; BP diastolic 80–107
[2019-02-09] MEDS: METOPROLOL TARTRATE 5 MG/5 ML VIAL. IVP SCH ×3 (00:39→12:51)
--- NOTE | 2019-02-09 05:40 | NUR ---
Late note input: 0000: Patient's heart rate in upper 120's-low 130's. Consistent with activity throughout day. Blood pressure checked at 2300:182/98, heart rate 124. Hydralazine given per order protocol. Rechecked in one hour: 158/92, heart rate 125. 0008: Dr. Vaca paged regarding elevated heart rate throughout shift. Orders received for Metoprolol. Medication administered. Will continue to monitor patient.
[2019-02-09] MEDS: HYDROmorphone 2 MG/ML VIAL IV PRN (05:47)
[2019-02-09] MEDS: PANTOPRAZOLE 40 MG TABLET.DR. PO SCH (07:30)
--- NOTE | 2019-02-09 07:43 | PDOC ---
PROGRESS NOTES History of Present Illness History of Present Illness Images Images CT abdomen/pelvis - No acute abnormality is seen. VTE Prophylaxis Ordered VTE Prophylaxis Devices: Yes VTE Pharmacological Prophylaxi: Contraindicated Assessment/Plan POSSIBLE ACUTE CVA 02/[address] HEAD 02-09 Remote infarct is noted in the left cerebellum, stable. Remote lacunar infarct is noted in the right putamen. Low-attenuation in the periventricular white matter is suggestive of chronic small vessel ischemic changes. Hematemesis - on ASA only, just had recently EGD. consult GI. Multiple falls - was just discharged with home health previously, to ED multiple visits for falls. 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 - no sonographic evidence of deep venous thrombosis involving the visualized deep venous structures of either lower extremity. Failure to thrive MILD HYPERNATREMIA - hypovolemic VOLUME DEPLETED, dehydration Gait instability Multilevel degenerative change throughout the lumbar spine and lower thoracic spine, resulting in stenosis - Grade 1 anterolisthesis of L5 on S1 and retrolisthesis of L2 on L3. ELEVATED ESR Bilateral leg weakness Anemia - likely of chronic disease UTI FEN - NPO PPX - PPI, SCDs FULL CODE Dispo - inpatient for UGIB 02/09 LESS RESPONSIVE, RIGHT LEG AND ARM WEAKNESS Operative Note Operative Note 02/08 dr ayon Operative Note EGD with bx Meds propofol per anesthesia Pre-op dx hematemesis Post-op dx erosive esophagitis s/p bx Plan advance diet PPI therapy for acid suppression serial cbcs 02/09 CODE STROKE CALLED, MOVE TO ICU NOW, NEEDS STAT PICC, NEUROLOGY NOTIFIED STAT/// ON IV ZOSYN 37 min pt exam CC TIME, chart review, > 50% of time spent with exam, chart review, pt care coordination Vitals Vitals Vital Signs Date Time Temp Pulse Resp B/P (MAP) Pulse Ox O2 Delivery O2 Flow Rate FiO2 02/09/19 06:41 118 186/98 02/09/19 06:31 Room Air 2.0 02/09/19 03:27 99.1 20 98 99.1 Physical Exam Physical Exam NEW RIGHT SIDED WEAKNESS 02/09 General: Cooperative, No acute distress, mild distress, Other (NOT FOLLOWING COMMANDS WELL) Heart: Regular rate Lungs: Clear Abdomen: Normal bowel sounds, Soft, No tenderness, No hepatosplenomegaly, No masses Extremities: No clubbing, No cyanosis, No edema, Normal pulses, No tenderness/s welling Skin: No rashes, No breakdown, No significant lesion Labs LABS One or more of the following individualized dose reduction techniques were utilized for this examination: 1. Automated exposure control 2. Adjustment of the mA and/or kV according to patient size 3. Use of iterative reconstruction technique PQRS Compliance Statement: One or more of the following individualized dose reduction techniques were utilized for this examination: 1. Automated exposure control 2. Adjustment of the mA and/or kV according to patient size 3. Use of iterative reconstruction technique CT head without contrast 02/09/2019 10:44 AM INDICATION: Left-sided weakness with verbal difficulty COMPARISON: CT head 01/15/2019 TECHNIQUE: Multiple axial CT images of the head were obtained from skull base through the vertex without intravenous contrast. FINDINGS: Head: Ventricles, sulci and basal cisterns are within normal limits. Low-attenuation in the periventricular white matter is suggestive of chronic small vessel ischemic changes. Suspect a remote lacunar infarct in the right putamen (series 2, image 14). There is no hydrocephalus. Capps-white matter differentiation is normal. There is no acute intracranial hemorrhage. There is no mass, mass effect or midline shift. Remote infarct involving the left cerebellum with associated gliosis. Visualized portions of the orbits are normal. Paranasal sinuses are well aerated. Mastoid air cells are well aerated. Scalp and calvaria are normal. Bone island is noted in the right frontal calvaria measuring 7 mm. IMPRESSION: No acute intracranial hemorrhage. Remote infarct is noted in the left cerebellum, stable. Remote lacunar infarct is noted in the right putamen. Low-attenuation in the periventricular white matter is suggestive of chronic small vessel ischemic changes. FOR INTERNAL CODING PURPOSES Critical result: Findings discussed with the patient's nurse Deena at 02/09/2019 10:58 AM. RESULT CODE: (C) Laboratory Tests Test 02/08/19 10:54 02/08/19 16:29 02/08/19 20:34 Glucose (Fingerstick) 205 mg/dL (70-99) 154 mg/dL (70-99) 158 mg/dL (70-99) Assessment and Plan Assessmemt and Plan Problems Medical Problems: (1) Hypercalcemia Status: Acute (2) Low back pain Status: Acute (3) Nausea and vomiting Status: Acute (4) Uncontrolled diabetes mellitus Status: Acute Comment Review of Relevant I have reviewed the following items jorge luis (where applicable) has been applied. Labs Laboratory Tests Test 02/07/19 08:00 02/07/19 08:20 02/07/19 11:54 02/07/19 15:30 Estimated GFR (Non- 68 (>59) Phosphorus Level 2.6 mg/dL (2.6-4.7) EGFR 79 (>59) 25-Hydroxy Vitamin D Total 28.4 ng/mL (30-100) PTH (Intact) Specimen Description Comment (.) Parathyroid Hormone (Intact) 82 pg/mL (15-65) Calcium (PTH Intact) 11.2 mg/dL (8.7-10.3) Creatinine (PTH Intact) 0.84 mg/dL (0.57-1.00) Phosphorus (PTH Intact) 1.8 mg/dL (2.5-4.5) Gastric Fluid Occult Blood Positive (NEG) Glucose (Fingerstick) 180 mg/dL (70-99) Hemoglobin 13.4 g/dL (12.0-15.5) Test 02/07/19 16:26 02/07/19 20:12 02/08/19 06:10 02/08/19 07:18 Glucose (Fingerstick) 147 mg/dL (70-99) 178 mg/dL (70-99) 165 mg/dL (70-99) Urine Collection Type Unknown Urine Color Yellow Urine Clarity Clear Urine pH 5.5 Urine Specific [place] 1.015 Urine Protein 30 mg/dL (NEG-TRACE) Urine Glucose (UA) Negative mg/dL (NEG) Urine Ketones (Stick) 40 mg/dL (NEG) Urine Blood Negative (NEG) Urine Nitrite Positive (NEG) Urine Bilirubin Negative (NEG) Urine Urobilinogen Dipstick 1.0 mg/dL (0.2 mg/dL) Urine Leukocyte Esterase Moderate (NEG) Urine RBC Occ /HPF (0-2) Urine WBC Tntc /HPF (0-4) Urine Squamous Epithelial Cells Mod /LPF Urine Bacteria Many /HPF (0-FEW) Urine Mucus Marked /LPF Test 02/08/19 10:54 02/08/19 16:29 02/08/19 20:34 Glucose (Fingerstick) 205 mg/dL (70-99) 154 mg/dL (70-99) 158 mg/dL (70-99) Laboratory Tests Test 02/08/19 10:54 02/08/19 16:29 02/08/19 20:34 Glucose (Fingerstick) 205 mg/dL (70-99) 154 mg/dL (70-99) 158 mg/dL (70-99) Medications Current Medications Sodium Chloride 1,000 ml @ 1,000 mls/hr 1X ONCE IV Last administered on 02/07/19at 07:45; Start 02/07/19 at 06:30; Stop 02/07/19 at 07:29; Status DC Pantoprazole Sodium (PROTONIX VIAL for IV PUSH) 40 mg 1X ONCE IVP Last administered on 02/07/19at 07:42; Start 02/07/19 at 06:30; Stop 02/07/19 at 06:31; Status DC Albuterol/ Ipratropium (Duoneb) 3 ml 1X ONCE NEB Last administered on 02/07/19at 07:43; Start 02/07/19 at 07:30; Stop 02/07/19 at 07:31; Status DC Fentanyl Citrate (Fentanyl 2ml Vial) 50 mcg 1X ONCE IVP Last administered on 02/07/19at 08:01; Start 02/07/19 at 08:00; Stop 02/07/19 at 08:01; Status DC Ondansetron HCl (Zofran) 4 mg 1X ONCE IV Last administered on 02/07/19at 08:00; Start 02/07/19 at 08:00; Stop 02/07/19 at 08:01; Status DC Fentanyl Citrate (Fentanyl 2ml Vial) 50 mcg 1X ONCE IVP Last administered on 02/07/19at 08:40; Start 02/07/19 at 08:15; Stop 02/07/19 at 08:24; Status DC Ondansetron HCl (Zofran) 4 mg PRN Q8HRS PRN IV NAUSEA/VOMITING Last administered on 02/08/19 07:57; Start 02/07/19 at 08:15; Stop 02/08/19 at 08:14; Status DC Sodium Chloride 1,000 ml @ 150 mls/hr Q6H40M IV Last administered on 02/08/19 07:07; Start 02/07/19 at 08:09; Stop 02/08/19 at 08:08; Status DC Morphine Sulfate (Morphine Sulfate) 4 mg 1X ONCE IM Last administered on 02/07/19 08:53; Start 02/07/19 at 08:45; Stop 02/07/19 at 08:48; Status DC Prochlorperazine Edisylate (Compazine) 5 mg 1X ONCE IM Last administered on 02/07/19 08:52; Start 02/07/19 at 08:45; Stop 02/07/19 at 08:48; Status DC Amlodipine Besylate (Norvasc) 5 mg DAILY PO Last administered on 02/08/19 07:59; Start 02/07/19 at 10:00 Aspirin (Children'S Aspirin) 81 mg DAILYWBKFT PO Last administered on 02/07/19 10:45; Start 02/07/19 at 10:00; Stop 02/07/19 at 15:05; Status DC Tramadol HCl (Ultram) 50 mg PRN Q6HRS PRN PO MILD TO MODERATE PAIN Last administered on 02/07/19at 18:34; Start 02/07/19 at 11:00 Hydromorphone HCl (Dilaudid) 1 mg PRN Q4HRS PRN IV MODERATE TO SEVERE PAIN Last administered on 02/09/19 05:47; Start 02/07/19 at 11:00 Hydralazine HCl (Apresoline Inj) 10 mg PRN Q4HRS PRN IVP ELEVATED BP, SEE COMMENTS Last administered on 02/08/19at 23:09; Start 02/07/19 at 15:15 Ondansetron HCl (Zofran) 4 mg PRN Q6HRS PRN IVP NAUSEA/VOMITING Last administered on 02/08/19at 23:42; Start 02/07/19 at 15:15 Midazolam HCl (Versed) 2 mg PRN 1X PRN IV PRIOR TO PROCEDURE; Start 02/08/19 at 10:45; Stop 02/09/19 at 10:44 Fentanyl Citrate (Fentanyl 2ml Vial) 25 mcg PRN Q5MIN PRN IV X 2 DOSES FOR PAIN; Start 02/08/19 at 10:45; Stop 02/09/19 at 10:44 Fentanyl Citrate (Fentanyl 2ml Vial) 50 mcg PRN Q5MIN PRN IV X 2 DOSES FOR PAIN; Start 02/08/19 at 10:45; Stop 02/09/19 at 10:44 Ringer's Solution 1,000 ml @ 125 mls/hr Q8H IV Last administered on 02/08/19at 12:10; Start 02/08/19 at 10:39; Stop 02/08/19 at 22:38; Status DC Lidocaine HCl (Xylocaine-Mpf 1% 2ml Vial) 2 ml 1X PRN PRN ID IV START; Start 02/08/19 at 10:45; Stop 02/09/19 at 10:44 Propofol 20 ml @ As Directed STK-MED ONCE IV ; Start 02/08/19 at 13:16; Stop 02/08/19 at 13:17; Status DC Lidocaine HCl (Lidocaine Pf 2% Vial) 5 ml STK-MED ONCE .ROUTE ; Start 02/08/19 at 13:16; Stop 02/08/19 at 13:17; Status DC Pantoprazole Sodium (Protonix) 40 mg DAILYAC PO Last administered on 02/08/19at 14:41; Start 02/08/19 at 15:00 Clonidine HCl (Catapres Tts-2) 1 patch WEEKLY TD ; Start 02/09/19 at 09:00; Stop 02/08/19 at 17:56; Status DC Clonidine HCl (Catapres Tts-2) 1 patch WEEKLY TD Last administered on 02/08/19at 18:13; Start 02/08/19 at 18:00 Metoprolol Tartrate (Lopressor Vial) 5 mg Q6HRS IVP Last administered on 02/09/19at 06:41; Start 02/09/19 at 00:15 Active Scripts Active Vitamin D3 (Cholecalciferol (Vitamin D3)) 5,000 Unit Capsule 5,000 Unit PO DAILY 30 Days Miralax (Polyethylene Glycol 3350) 17 Gm Powd.pack 1 Packet PO DAILY Lyrica (Pregabalin) 100 Mg Capsule 1 Cap PO BID 30 Days Reported Percocet 7.5-325 Mg Tablet (Oxycodone/Acetaminophen) 1 Each Tablet 2 Tab PO PRN TID PRN Proair Hfa Inhaler (Albuterol Sulfate) 8.5 Gm Hfa.aer.ad 2 Puff INH PRN Q6HRS PRN Amitriptyline Hcl 10 Mg Tablet 6 Tab PO QHS Glimepiride 4 Mg Tablet 1 Tab PO DAILYWBKFT Compazine (Prochlorperazine Maleate) 10 Mg Tablet 10 Mg PO PRN Q8HRS PRN Diclofenac Sodium 75 Mg Tablet.dr 1 Tab PO BID Pravastatin Sodium 40 Mg Tablet 1 Tab PO QHS Clonidine Hcl 0.3 Mg Tablet 1 Tab PO BID Labetalol Hcl 200 Mg Tablet 1 Tab PO BID Vitals/I & O Vital Sign - Last 24 Hours 02/08/19 02/08/19 02/08/19 02/08/19 07:55 07:59 07:59 07:59 Pulse 119 119 B/P (MAP) 174/88 174/88 O2 Delivery Nasal Cannula Nasal Cannula O2 Flow Rate 2.0 2.0 02/08/19 02/08/19 02/08/19 02/08/19 08:30 11:04 12:05 12:08 Temp 99.2 99.4 99.2 99.4 Pulse 127 124 Resp 20 20 B/P (MAP) 171/85 (113) Pulse Ox 98 98 O2 Delivery Nasal Cannula Nasal Cannula Nasal Cannula O2 Flow Rate 2.0 2.0 02/08/19 02/08/19 02/08/19 02/08/19 13:35 13:50 14:00 14:15 Temp 98.7 99.1 98.7 99.1 Pulse 110 115 130 125 Resp 20 20 22 20 B/P (MAP) 177/90 177/80 166/93 (117) 162/86 (111) Pulse Ox 97 97 96 94 O2 Delivery Room Air Room Air Room Air Room Air 02/08/19 02/08/19 02/08/19 02/08/19 14:30 14:41 14:42 14:45 Pulse 121 122 118 Resp 20 18 B/P (MAP) 169/87 (114) 169/87 166/84 (111) Pulse Ox 94 98 O2 Delivery Room Air Nasal Cannula Room Air 02/08/19 02/08/19 02/08/19 02/08/19 15:00 15:30 15:30 16:00 Pulse 132 129 127 Resp 18 18 18 B/P (MAP) 130/72 (91) 139/74 (95) 148/77 (100) Pulse Ox 93 93 94 O2 Delivery Room Air Room Air Room Air Room Air 02/08/19 02/08/19 02/08/19 02/08/19 17:00 18:00 19:51 20:05 Temp 99.1 99.1 Pulse 126 127 124 Resp 20 B/P (MAP) 154/84 (107) 163/89 (113) 156/79 (104) Pulse Ox 94 O2 Delivery Room Air Room Air 02/08/19 02/08/19 02/08/19 02/08/19 20:10 20:45 23:09 23:51 Temp 99.5 99.5 Pulse 124 125 Resp 20 B/P (MAP) 182/98 182/98 (126) Pulse Ox 95 O2 Delivery Nasal Cannula Nasal Cannula Nasal Cannula O2 Flow Rate 2.0 2.0 02/09/19 02/09/19 02/09/19 02/09/19 00:02 00:39 03:27 05:47 Temp 99.1 99.1 Pulse 124 124 112 Resp 20 B/P (MAP) 158/92 (114) 158/92 186/98 (127) Pulse Ox 98 O2 Delivery Nasal Cannula Nasal Cannula O2 Flow Rate 2.0 2.0 02/09/19 02/09/19 06:31 06:41 Pulse 118 B/P (MAP) 186/98 O2 Delivery Room Air O2 Flow Rate 2.0 Intake and Output 02/08/19 02/08/19 02/09/19 15:00 23:00 07:00 Intake Total 0 ml 0 ml 0 ml Output Total 250 ml Balance -250 ml 0 ml 0 ml BLAYNE MILES MD Feb 09, 2019 07:43
[2019-02-09 08:52] LABS: BASO % 0 % (0-3); EOS % 0 % (0-3); HEMATOCRIT 39.9 % (36.0-47.0); HEMOGLOBIN 13.2 g/dL (12.0-15.5); LYMPH # 2.3 x10^3/uL (1.0-4.8); LYMPH % 23 % (24-48); MEAN CORPUSCULAR HEMOGLOBIN 31 pg (25-35); MEAN CORPUSCULAR HGB CONC 33 g/dL (31-37); MEAN CORPUSCULAR VOLUME 94 fL (79-100); MONO # 1.2 x10^3/uL (0.0-1.1); MONO % 12 % (0-9); NEUT # 6.2 x10^3/uL (1.8-7.7); NEUT % 64 % (31-73); PLATELET COUNT 220 x10^3/uL (140-400); RED BLOOD COUNT 4.22 x10^6/uL (3.50-5.40); RED CELL DISTRIBUTION WIDTH 12.9 % (11.5-14.5); WHITE BLOOD COUNT 9.7 x10^3/uL (4.0-11.0)
[2019-02-09] MEDS: amLODIPine BESYLATE 5 MG TABLET PO SCH (09:00)
[2019-02-09] MEDS ORDERED: cloNIDine TTS-2 1 PATCH PATCH TD SCH (09:00)
[2019-02-09] MEDS ORDERED: FLU VAX QS 2019-20 (36MOS+)/PF 0.5 ML SYRINGE. VAX IM ONE (09:00)
[2019-02-09 09:07] LABS: ALBUMIN 3.3 g/dL (3.4-5.0); ALBUMIN/GLOBULIN RATIO 0.8 (1.0-1.7); CALCIUM 10.2 mg/dL (8.5-10.1); CREATININE 0.8 mg/dL (0.6-1.0); GFR 84.6; POTASSIUM 3.9 mmol/L (3.5-5.1); TOTAL BILIRUBIN 0.6 mg/dL (0.2-1.0); TOTAL PROTEIN 7.5 g/dL (6.4-8.2)
[2019-02-09] MEDS: ONDANSETRON PF 4 MG/2 ML VIAL. IVP PRN (09:59)
[2019-02-09] MEDS: hydrALAZINE 20 MG/ML VIAL. IVP PRN (10:25)
--- NOTE | 2019-02-09 10:51 | NUR ---
Code Stroke: Assessed pt at the beginning of the shift. Pt verbalized name (Deidre), place ([place]). Pt asked to be put on the bed [place] at approx. 0830. C/O nausea at approx. 0945. Lost IV access. Spoke to Dr. Nolasco, orders for IM hydralazine, PICC insertion. Returned to pt room, pt agreed to IM medical detailist by knodding her head. Noticed pt had a new twitching to her mouth, uncontrolled. Displaying change in mental stratus, no longer vocalizing, loss in sensation to upper arms and upper legs, reacts to feet sensory. Unable to follow commands. mechanical engineering lecturer assessed pt. Code Stroke called. Team responded. Vitals reported. Pt transported to CT for stat imaging. Report called to this freelance copywriter by reviewing CT. Report relayed to Dr. Nolasco immediately.
--- NOTE | 2019-02-09 10:59 | PDOC ---
Subjective: Subjective: Doesn't verbalize responses to my questions but shakes/nods head. Objective: Vital Signs: Vital Signs Date Time Temp Pulse Resp B/P (MAP) Pulse Ox O2 Delivery O2 Flow Rate FiO2 02/09/19 10:25 111 174/108 02/09/19 07:54 98.3 20 97 Nasal Cannula 2.0 98.3 Labs: Laboratory Tests Test 02/08/19 16:29 02/08/19 20:34 02/09/19 07:13 02/09/19 08:29 Glucose (Fingerstick) 154 mg/dL 158 mg/dL 178 mg/dL White Blood Count 9.7 x10^3/uL Red Blood Count 4.22 x10^6/uL Hemoglobin 13.2 g/dL Hematocrit 39.9 % Mean Corpuscular Volume 94 fL Mean Corpuscular Hemoglobin 31 pg Mean Corpuscular Hemoglobin Concent 33 g/dL Red Cell Distribution Width 12.9 % Platelet Count 220 x10^3/uL Neutrophils (%) (Auto) 64 % Lymphocytes (%) (Auto) 23 % Monocytes (%) (Auto) 12 % Eosinophils (%) (Auto) 0 % Basophils (%) (Auto) 0 % Neutrophils # (Auto) 6.2 x10^3/uL Lymphocytes # (Auto) 2.3 x10^3/uL Monocytes # (Auto) 1.2 x10^3/uL Eosinophils # (Auto) 0.0 x10^3/uL Basophils # (Auto) 0.0 x10^3/uL Sodium Level 142 mmol/L Potassium Level 3.9 mmol/L Chloride Level 106 mmol/L Carbon Dioxide Level 27 mmol/L Anion Gap 9 Blood Urea Nitrogen 10 mg/dL Creatinine 0.8 mg/dL Estimated GFR (Cockcroft-Gault) 84.6 BUN/Creatinine Ratio 13 Glucose Level 195 mg/dL Calcium Level 10.2 mg/dL Total Bilirubin 0.6 mg/dL Aspartate Amino Transf (AST/SGOT) 11 U/L Alanine Aminotransferase (ALT/SGPT) 13 U/L Alkaline Phosphatase 89 U/L Total Protein 7.5 g/dL Albumin 3.3 g/dL Albumin/Globulin Ratio 0.8 Test 02/09/19 10:34 Glucose (Fingerstick) 184 mg/dL Imaging: EGD 02/08 erosive esophagitis s/p bx PE: GEN: NAD LUNGS: room air HEART: tachycardic ABD: soft, winces with palpation epigastric region NEURO/PSYCH: does not verbalize A/P: "Hematemesis," epigastric pain Erosive esophagitis AMS -- D/w nurse - not talking this morning, hypertensive - she just spoke w/ Dr. Nolasco. I believe code stroke called shortly after this - await workup. Considering this morning's events, IV PPI for now. Await biopsies. NESHA GRAHAM Feb 09, 2019 10:59
--- NOTE | 2019-02-09 11:05 | RAD ---
PQRS Compliance Statement: One or more of the following individualized dose reduction techniques were utilized for this examination: 1. Automated exposure control 2. Adjustment of the mA and/or kV according to patient size 3. Use of iterative reconstruction technique PQRS Compliance Statement: One or more of the following individualized dose reduction techniques were utilized for this examination: 1. Automated exposure control 2. Adjustment of the mA and/or kV according to patient size 3. Use of iterative reconstruction technique CT head without contrast 02/09/2019 10:44 AM INDICATION: Left-sided weakness with verbal difficulty COMPARISON: CT head 01/15/2019 TECHNIQUE: Multiple axial CT images of the head were obtained from skull base through the vertex without intravenous contrast. FINDINGS: Head: Ventricles, sulci and basal cisterns are within normal limits. Low-attenuation in the periventricular white matter is suggestive of chronic small vessel ischemic changes. Suspect a remote lacunar infarct in the right putamen (series 2, image 14). There is no hydrocephalus. Capps-white matter differentiation is normal. There is no acute intracranial hemorrhage. There is no mass, mass effect or midline shift. Remote infarct involving the left cerebellum with associated gliosis. Visualized portions of the orbits are normal. Paranasal sinuses are well aerated. Mastoid air cells are well aerated. Scalp and calvaria are normal. Bone island is noted in the right frontal calvaria measuring 7 mm. IMPRESSION: No acute intracranial hemorrhage. Remote infarct is noted in the left cerebellum, stable. Remote lacunar infarct is noted in the right putamen. Low-attenuation in the periventricular white matter is suggestive of chronic small vessel ischemic changes. FOR INTERNAL CODING PURPOSES Critical result: Findings discussed with the patient's nurse Deena at 02/09/2019 10:58 AM. RESULT CODE: (C) Electronically signed by: Ninfa Mittal MD (02/09/2019 11:02 AM) [facility]
[2019-02-09] MEDS ORDERED: PROCHLORPERAZINE 25 MG SUPP.RECT. PR PRN (11:30)
[2019-02-09] MEDS ORDERED: BISACODYL 10 MG SUPP.RECT. PR PRN (11:30)
[2019-02-09] MEDS ORDERED: 0.9 % SODIUM CHLORIDE 10 ML DISP.SYRIN. IV PRN (11:30)
[2019-02-09] MEDS ORDERED: ONDANSETRON PF 4 MG/2 ML VIAL. IV PRN (11:30)
--- NOTE | 2019-02-09 11:55 | NUR ---
Called pt transfer report to SAUL Gutierrez at ICU. Jolanta, daughter, called, no answer, left voicemail.
--- NOTE | 2019-02-09 11:56 | NUR ---
SW following pt for dc planning. Chart reviewed and discussed with RN. Pt was discharged home with [facility], , fax: [phone] in 2018 after declining SNU placement. Pt has been to [facility] SNU in December 2018. Pt also has recently moved to [facility], , fax: [phone] and was admitted to hospital due to N/V. PT/OT recommends SNU. SW attempted to meet with pt discuss options but pt is transferred to ICU after a code stroke. Plan 1. SW will hold SNU eval due to change in condition 2. Pt will need new PT/OT eval to assess skilled needs 3. SW will provide handoff to ICU SS.
--- NOTE | 2019-02-09 11:59 | NUR ---
Called for Code stroke HR 110 BP 190/128 on 1L with sat 99% Pt has eyes open when entered room. Will turn head to verbal stimulation. Does not close eyes or open mouth to command. Able to squeeze with hands bilat strength weak. Unable to hold up against gravity. Moves legs to stimulation but does not hold up to gravity. See [facility] intervention. To CT for code stroke Dr Crooks paged Dr Nolasco on unit when arrived back from CT. Pt transferred to ICU room 107 Arrived to ICU at 1125 IV placed in right forearm. BP 188/98 Dr Crooks here to see patient in ICU [place] here to see patient Pt MRI at 1150 Addendum: 02/09/19 at 1205 by PHILLIP REYES RN Amended: Links added.
[2019-02-09 12:03] LABS: PROTHROMBIN TIME PATIENT 12.9 SEC (11.7-14.0)
--- NOTE | 2019-02-09 12:06 | PDOC2 ---
YSABEL ARDON WHARF LABORER 02/09/19 1206: CARDIAC CONSULT DATE OF CONSULT Date of Consult DATE: 02/09/19 TIME: 11:41 REASON FOR CONSULT Reason for Consult: Uncontrolled HTN REFERRING PHYSICIAN Referring Physician: Fullbright SOURCE Source: Chart review HISTORY OF PRESENT ILLNESS HISTORY OF PRESENT ILLNESS This is a 74 yo female admitted for complains of vomiting blood. She was noted with coffee ground emesis. No prior hx of GI bleed. She was at 6S and was noted with high >200s/110s. She then was noted with possible stroke and code stroke was called. She recieved hydralazine. Per staff pt was then noted to be twitching in her mouth and was not responding to communication and could not speak and was unable to follow commands. Noted NIH score is 28. Transferred to ICU. CT revealed past cerebellar stroke. Pt is currently is able to turn head and awake but unable to follow commands and moaning upon SL insertion. PAST MEDICAL HISTORY Cardiovascular: HTN Pulmonary: Asthma CENTRAL NERVOUS SYSTEM: Periperal neuropathy, TIA, Other (gait disorder) GI: GERD Hepatobiliary: Cholelithiasis Musculoskeletal: low back pain, Osteoarthritis Infectious disease: No pertinent hx ENT: No pertinent hx Renal/: Chronic renal insuff, UTI Endocrine: Diabetes (2) PAST SURGICAL HISTORY Past Surgical History: Cholecystectomy, Hysterectomy FAMILY HISTORY Family History: Family History Unknown SOCIAL HISTORY Smoke: No ALCOHOL: none Drugs: None CURRENT MEDICATIONS CURRENT MEDICATIONS Current Medications Medications (Trade) Dose Ordered Sig/Janay Route PRN Reason Start Time Stop Time Status Last Admin Dose Admin Pantoprazole Sodium (Protonix) 40 mg DAILYAC PO 02/08/19 15:00 02/09/19 11:00 DC 02/08/19 14:41 Clonidine HCl (Catapres Tts-2) 1 patch WEEKLY TD 02/08/19 18:00 02/08/19 18:13 Metoprolol Tartrate (Lopressor Vial) 5 mg Q6HRS IVP 02/09/19 00:15 02/09/19 06:41 ALLERGIES ALLERGIES: Coded Allergies: No Known Drug Allergies (Unverified , 02/08/19) ROS Review of System unreliable PHYSICAL EXAM General: Alert HEENT: Mucous membr. moist/pink Lungs: Other (diminished bases) Heart: Regular rate (SR), Normal S1, Normal S2, No murmurs Abdomen: Soft, No tenderness, Other (obese) Extremities: No cyanosis, No edema Skin: No breakdown, No significant lesion Neuro: Other (nonverbal, moans) Psych/Mental Status: Other (unable to follow commands) MUSCULOSKELETAL: Osteoarthritic changes both hands VITALS/I&O VITALS/I&O: Vital Signs Date Time Temp Pulse Resp B/P (MAP) Pulse Ox O2 Delivery O2 Flow Rate FiO2 02/09/19 10:25 111 174/108 02/09/19 07:54 98.3 20 97 Nasal Cannula 2.0 98.3 I & O 02/08/19 02/08/19 02/09/19 15:00 23:00 07:00 Intake Total 0 ml 0 ml 0 ml Output Total 250 ml Balance -250 ml 0 ml 0 ml LABS Lab: Laboratory Tests Test 02/08/19 16:29 02/08/19 20:34 02/09/19 07:13 02/09/19 08:29 Glucose (Fingerstick) 154 mg/dL (70-99) H 158 mg/dL (70-99) H 178 mg/dL (70-99) H White Blood Count 9.7 x10^3/uL (4.0-11.0) Red Blood Count 4.22 x10^6/uL (3.50-5.40) Hemoglobin 13.2 g/dL (12.0-15.5) Hematocrit 39.9 % (36.0-47.0) Mean Corpuscular Volume 94 fL (79-100) Mean Corpuscular Hemoglobin 31 pg (25-35) Mean Corpuscular Hemoglobin Concent 33 g/dL (31-37) Red Cell Distribution Width 12.9 % (11.5-14.5) Platelet Count 220 x10^3/uL (140-400) Neutrophils (%) (Auto) 64 % (31-73) Lymphocytes (%) (Auto) 23 % (24-48) L Monocytes (%) (Auto) 12 % (0-9) H Eosinophils (%) (Auto) 0 % (0-3) Basophils (%) (Auto) 0 % (0-3) Neutrophils # (Auto) 6.2 x10^3/uL (1.8-7.7) Lymphocytes # (Auto) 2.3 x10^3/uL (1.0-4.8) Monocytes # (Auto) 1.2 x10^3/uL (0.0-1.1) H Eosinophils # (Auto) 0.0 x10^3/uL (0.0-0.7) Basophils # (Auto) 0.0 x10^3/uL (0.0-0.2) Sodium Level 142 mmol/L (136-145) Potassium Level 3.9 mmol/L (3.5-5.1) Chloride Level 106 mmol/L (98-107) Carbon Dioxide Level 27 mmol/L (21-32) Anion Gap 9 (6-14) Blood Urea Nitrogen 10 mg/dL (7-20) Creatinine 0.8 mg/dL (0.6-1.0) Estimated GFR (Cockcroft-Gault) 84.6 BUN/Creatinine Ratio 13 (6-20) Glucose Level 195 mg/dL (70-99) H Calcium Level 10.2 mg/dL (8.5-10.1) H Total Bilirubin 0.6 mg/dL (0.2-1.0) Aspartate Amino Transferase (AST) 11 U/L (15-37) L Alanine Aminotransferase (ALT) 13 U/L (14-59) L Alkaline Phosphatase 89 U/L (46-116) Total Protein 7.5 g/dL (6.4-8.2) Albumin 3.3 g/dL (3.4-5.0) L Albumin/Globulin Ratio 0.8 (1.0-1.7) L Test 02/09/19 10:34 Glucose (Fingerstick) 184 mg/dL (70-99) H Laboratory Tests 02/09/19 08:29 Laboratory Tests 02/09/19 08:29 ECHOCARDIOGRAM ECHOCARDIOGRAM <Conclusion> The left ventricular systolic function is normal and the ejection fraction is within normal range. The Ejection Fraction is 55-60%. There is normal LV segmental wall motion. Doppler and Color Flow revealed mild tricuspid regurgitation. The PA pressure was estimated at 36 mmHg. The ascending aorta is mildly dilated at 3.4 cm. DATE: 01/18/19 0953 ASSESSMENT/PLAN ASSESSMENT/PLAN 1. Possible stroke: prior hx of TIAs 2. Accelerated HTN: REcent EF and WM nml 3. Encephalopathy 4. HLP 5. DM2 6. Morbid obesity 7. Erosive esophagitis: per EGD. GI following Recommendations 1. Presently pt is already on metoprolol IV and catapress transdermal. Continue this and agree with hydralazine PRN 2. Brain MRI pending. Neurology consult. 3. Secondary prevention measures. 4. Supportive care. Monitor rhythm 5. Check EKG, lipids and TSH. JEFF WARNER MD 02/09/19 1752: CARDIAC CONSULT ASSESSMENT/PLAN ASSESSMENT/PLAN (1) YSABEL ARDON APRN Feb 09, 2019 12:06 JEFF WARNER MD Feb 09, 2019 17:52 1: Patient seen and examined. Agree with above nurse practitioner note. She definitely has expressive aphasia. It appears that she's able to comprehend my questions. Denies any chest pain. Heart tones are normal. Plan for nicardipine therapy and continued further evaluation by neurology of possible metabolic encephalopathy versus stroke.
[2019-02-09 12:28] LABS: CHOLESTEROL/HDL RATIO 2.4
--- NOTE | 2019-02-09 12:48 | RAD ---
EXAM: Brain MRI without contrast. HISTORY: Stroke. TECHNIQUE: Multiplanar, multisequence magnetic resonance imaging of the brain was performed without contrast. COMPARISON: CT obtained on the same date. FINDINGS: There is no restricted diffusion to suggest acute or subacute infarction. There is no susceptibility effect to suggest hemorrhage. There is no mass effect or midline shift. There is no hydrocephalus. There are focal areas of encephalomalacia within the left greater than right cerebellar hemispheres due to chronic infarction. There are nonspecific focal areas of T2 such FLAIR hyperintensity within the cerebral white matter and kenneth. The orbits are unremarkable. There are maxillary sinus mucous retention cysts superimposed on paranasal sinus because of thickening. There is fluid within the right mastoid air cells. There are normal flow voids within the cerebral vessels. No suspicious calvarial lesion is seen. There is diffuse calvarial thickening. IMPRESSION: 1. No acute intracranial finding. 2. Chronic infarcts within the left greater than right cerebellar hemispheres. 3. Scattered areas of white matter and pontine signal change likely due to chronic small vessel disease. Electronically signed by: Pina Huffman MD (02/09/2019 12:45 PM) [id number]
[2019-02-09] MEDS: IV NORMAL SALINE 1000ML BAG 1,000 ML IV SCH (12:50)
[2019-02-09] MEDS: PANTOPRAZOLE IV PUSH 40 MG VIAL. IVP SCH (12:51)
[2019-02-09] MEDS: LABETALOL 20 MG/4 ML DISP.SYRIN. IVP SCH ×3 (13:00→19:47)
[2019-02-09] MEDS: PIPERACILLIN/TAZOBACTAM 3.375 GM in IV NORMAL SALINE 50ML 50 ML IV SCH ×2 (13:22→18:24)
--- NOTE | 2019-02-09 13:51 | EKG ---
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
--- NOTE | 2019-02-09 14:15 | NUR ---
ASKED [place] DAUGHTER ABOUT PT RECEIVING FLU SHOT- PTS DAUGHTER CHARLOTTE REFUSED FLU SHOT.
--- NOTE | 2019-02-09 16:29 | PDOC2 ---
NEUROLOGY CONSULT Date of Admission Date of Admission DATE: 02/09/19 TIME: 16:10 Reason for Consult Reason for Consult: IMPRESSION: Coded stroke on the floor. Acute mental status changes. Weakness, not moving UE and LE. Not able to talk. Decreased response. Metabolic encephalopathy. DM. Hyperglycemia. Diabetic neuropathy. HTN. Hypercalcemia. Hyperparathyroidism likely. Vit D deficiency. Old bilateral cerebellar infarcts. Obesity. No evidence of acute CVA this time after neurological evaluation. RECOMMENDATIONS/PLAN: BP control. Treat medical diseases. ASA 81 mg daily. Lab: see orders. EEG. OT/PT. Brain MRI on 02/09/19: No acute findings. History of Present Illness This is a 73-year-old AA female patient with PMHx including Arthritis, Asthma, Diabetes-Type II, Heart Disease, Hypertension, TIA, neuropathy was seen multiple times recently in ED for falls and chronic bilateral LE weakness. She was admitted this time on 02/07/19 with complaints of vomiting blood as having 4 episodes of coffee-ground material. On 02/09/19, she was reportedly to have acute MS changes, unresponsiveness, not talking nor moves her extremities, so neurology was called for consultation for coded stroke. Past Medical History Cardiovascular: HTN Musculoskeletal: low back pain. Rheumatologic: Rheumatoid arthritis Endocrine: Diabetes PAST SURGERY HISTORY: No major surgery recently. ALLERGY: NKDA MEDICATIONS: Refer to [facility] FAMILY HISTORY: Non contributory. SOCIAL HISTORY: Lives in longterm. Denies current smoking, drinking, and illicit drug use. REVIEW OF SYSTEMS: Constitutional: Obesity. Head: No traumatic brain or head injury. Skin: No edema, or rash. Ear: No infection. Eyes: No vision loss or color blindness. Nose: No bleeding or purulent discharges. Hearing: No hearing decrease. Neck: No injury. Breast: No history of cancer, masses,or discharges. Cardiac: HTN. Pulmonary: No COPD. GI: No GI ulcer, GI bleeding. Urinary/genital: UTI. Endocrinologic: Diabetes Mellitus, obesity. Skeletomuscular: Generalized weakness. Neurological: see HP. Psychiatric: Denies drug use/abuse. Otherwise, not [id number] review of systems. PHYSICAL EXAMINATION: General appearance is in acute distress. HEENT: Normocephalic and nontraumatic. Eyes, nose, ears, and throat are unremarkable. Neck is supple. No lymphadenopathy. No crepitus. Cardiovascular: S1, S2, regular rate and rhythm. Pulmonary: relative clear to auscultation bilaterally. Abdomen: Bowel sounds are positive. Extremities: No rash, lesions, or edema. No restriction of range of motion NEUROLOGICAL EXAMINATION: Mildly lethargic. Not response to verbal. Not oriented to time, place and person. PERRL. EOMI. CN: no focal findings. Muscle tone: within normal. Muscle strength: 4 DTR: 2. Plantar reflex: Flexor response bilaterally Gait: not examined in bed. Sensory exam: Withdrawal response to stimuli. Not able to access cerebellar signs. F-T-N test not performed due to not follow commands . Current Medications Current Medications Current Medications Sodium Chloride 1,000 ml @ 1,000 mls/hr 1X ONCE IV Last administered on 02/07/19at 07:45; Start 02/07/19 at 06:30; Stop 02/07/19 at 07:29; Status DC Pantoprazole Sodium (PROTONIX VIAL for IV PUSH) 40 mg 1X ONCE IVP Last administered on 02/07/19at 07:42; Start 02/07/19 at 06:30; Stop 02/07/19 at 06:31; Status DC Albuterol/ Ipratropium (Duoneb) 3 ml 1X ONCE NEB Last administered on 02/07/19at 07:43; Start 02/07/19 at 07:30; Stop 02/07/19 at 07:31; Status DC Fentanyl Citrate (Fentanyl 2ml Vial) 50 mcg 1X ONCE IVP Last administered on 02/07/19at 08:01; Start 02/07/19 at 08:00; Stop 02/07/19 at 08:01; Status DC Ondansetron HCl (Zofran) 4 mg 1X ONCE IV Last administered on 02/07/19at 08:00; Start 02/07/19 at 08:00; Stop 02/07/19 at 08:01; Status DC Fentanyl Citrate (Fentanyl 2ml Vial) 50 mcg 1X ONCE IVP Last administered on 02/07/19at 08:40; Start 02/07/19 at 08:15; Stop 02/07/19 at 08:24; Status DC Ondansetron HCl (Zofran) 4 mg PRN Q8HRS PRN IV NAUSEA/VOMITING Last administered on 02/08/19at 07:57; Start 02/07/19 at 08:15; Stop 02/08/19 at 08:14; Status DC Sodium Chloride 1,000 ml @ 150 mls/hr Q6H40M IV Last administered on 02/08/19at 07:07; Start 02/07/19 at 08:09; Stop 02/08/19 at 08:08; Status DC Morphine Sulfate (Morphine Sulfate) 4 mg 1X ONCE IM Last administered on 02/07/19at 08:53; Start 02/07/19 at 08:45; Stop 02/07/19 at 08:48; Status DC Prochlorperazine Edisylate (Compazine) 5 mg 1X ONCE IM Last administered on 02/07/19 08:52; Start 02/07/19 at 08:45; Stop 02/07/19 at 08:48; Status DC Amlodipine Besylate (Norvasc) 5 mg DAILY PO Last administered on 02/08/19at 07:59; Start 02/07/19 at 10:00 Aspirin (Children'S Aspirin) 81 mg DAILYWBKFT PO Last administered on 02/07/19at 10:45; Start 02/07/19 at 10:00; Stop 02/07/19 at 15:05; Status DC Tramadol HCl (Ultram) 50 mg PRN Q6HRS PRN PO MILD TO MODERATE PAIN Last administered on 02/07/19 18:34; Start 02/07/19 at 11:00 Hydromorphone HCl (Dilaudid) 1 mg PRN Q4HRS PRN IV MODERATE TO SEVERE PAIN Last administered on 02/09/19at 05:47; Start 02/07/19 at 11:00 Hydralazine HCl (Apresoline Inj) 10 mg PRN Q4HRS PRN IVP ELEVATED BP, SEE COMMENTS Last administered on 02/09/19at 10:25; Start 02/07/19 at 15:15 Ondansetron HCl (Zofran) 4 mg PRN Q6HRS PRN IVP NAUSEA/VOMITING Last administered on 02/09/19at 09:59; Start 02/07/19 at 15:15 Midazolam HCl (Versed) 2 mg PRN 1X PRN IV PRIOR TO PROCEDURE; Start 02/08/19 at 10:45; Stop 02/09/19 at 10:44; Status DC Fentanyl Citrate (Fentanyl 2ml Vial) 25 mcg PRN Q5MIN PRN IV X 2 DOSES FOR PAIN; Start 02/08/19 at 10:45; Stop 02/09/19 at 10:44; Status DC Fentanyl Citrate (Fentanyl 2ml Vial) 50 mcg PRN Q5MIN PRN IV X 2 DOSES FOR PAIN; Start 02/08/19 at 10:45; Stop 02/09/19 at 10:44; Status DC Ringer's Solution 1,000 ml @ 125 mls/hr Q8H IV Last administered on 02/08/19at 12:10; Start 02/08/19 at 10:39; Stop 02/08/19 at 22:38; Status DC Lidocaine HCl (Xylocaine-Mpf 1% 2ml Vial) 2 ml 1X PRN PRN ID IV START; Start 02/08/19 at 10:45; Stop 02/09/19 at 10:44; Status DC Propofol 20 ml @ As Directed STK-MED ONCE IV ; Start 02/08/19 at 13:16; Stop 02/08/19 at 13:17; Status DC Lidocaine HCl (Lidocaine Pf 2% Vial) 5 ml STK-MED ONCE .ROUTE ; Start 02/08/19 at 13:16; Stop 02/08/19 at 13:17; Status DC Pantoprazole Sodium (Protonix) 40 mg DAILYAC PO Last administered on 02/08/19at 14:41; Start 02/08/19 at 15:00; Stop 02/09/19 at 11:00; Status DC Clonidine HCl (Catapres Tts-2) 1 patch WEEKLY TD ; Start 02/09/19 at 09:00; Stop 02/08/19 at 17:56; Status DC Clonidine HCl (Catapres Tts-2) 1 patch WEEKLY TD Last administered on 02/08/19at 18:13; Start 02/08/19 at 18:00 Metoprolol Tartrate (Lopressor Vial) 5 mg Q6HRS IVP Last administered on 02/09/19at 12:51; Start 02/09/19 at 00:15; Stop 02/09/19 at 12:59; Status DC Influenza Virus Vaccine Quadrival (Afluria Quad 2019-20 (3yr Up) Syringe) 0.5 ml ONCE ONCE VAX IM ; Start 02/09/19 at 09:00; Stop 02/09/19 at 09:01; Status DC Pantoprazole Sodium (PROTONIX VIAL for IV PUSH) 40 mg DAILYAC IVP Last administered on 02/09/19at 12:51; Start 02/09/19 at 11:01 Piperacillin Sod/ Tazobactam Sod 3.375 gm/Sodium Chloride 50 ml @ 100 mls/hr Q6HRS IV Last administered on 02/09/19at 13:22; Start 02/09/19 at 12:00 Ondansetron HCl (Zofran) 4 mg PRN Q6HRS PRN IV NAUSEA/VOMITING; Start 02/09/19 at 11:30; Stop 02/09/19 at 11:32; Status DC Prochlorperazine (Compazine) 25 mg PRN Q12HR PRN AR NAUSEA/VOMITING; Start 02/09/19 at 11:30 Famotidine (Pepcid Vial) 20 mg BID IVP ; Start 02/09/19 at 21:00; Stop 02/09/19 at 11:30; Status DC Enoxaparin Sodium (Lovenox 40mg Syringe) 40 mg Q12HR SQ ; Start 02/09/19 at 21:00 Sodium Chloride (Normal Saline Flush) 3 ml QSHIFT PRN IV AFTER MEDS AND BLOOD DRAWS; Start 02/09/19 at 11:30 Sodium Chloride 1,000 ml @ 100 mls/hr Q10H IV Last administered on 02/09/19at 12:50; Start 02/09/19 at 11:25 Bisacodyl (Dulcolax Supp) 10 mg PRN DAILY PRN AR CONSTIPATION; Start 02/09/19 at 11:30 Labetalol HCl (Normodyne Iv Push) 20 mg Q4HRS IVP Last administered on 02/09/19at 15:37; Start 02/09/19 at 13:00 Active Scripts Active Vitamin D3 (Cholecalciferol (Vitamin D3)) 5,000 Unit Capsule 5,000 Unit PO DAILY 30 Days Miralax (Polyethylene Glycol 3350) 17 Gm Powd.pack 1 Packet PO DAILY Lyrica (Pregabalin) 100 Mg Capsule 1 Cap PO BID 30 Days Reported Percocet 7.5-325 Mg Tablet (Oxycodone/Acetaminophen) 1 Each Tablet 2 Tab PO PRN TID PRN Proair Hfa Inhaler (Albuterol Sulfate) 8.5 Gm Hfa.aer.ad 2 Puff INH PRN Q6HRS PRN Amitriptyline Hcl 10 Mg Tablet 6 Tab PO QHS Glimepiride 4 Mg Tablet 1 Tab PO DAILYWBKFT Compazine (Prochlorperazine Maleate) 10 Mg Tablet 10 Mg PO PRN Q8HRS PRN Diclofenac Sodium 75 Mg Tablet.dr 1 Tab PO BID Pravastatin Sodium 40 Mg Tablet 1 Tab PO QHS Clonidine Hcl 0.3 Mg Tablet 1 Tab PO BID Labetalol Hcl 200 Mg Tablet 1 Tab PO BID Allergies Allergies: Allergies Coded Allergies Type Severity Reaction Last Updated Verified No Known Drug Allergies 02/08/19 No ROS Review of System The patient denies any associated fevers, chills, headache, ear pain, rhinorrhea, sore throat, stiff neck, productive cough, chest pain, shortness of breath, back or flank pain, abdominal pain, nausea, vomiting, diarrhea, constipation, dysuria, rash, numbness, weakness, tingling, incontinence, difficulty ambulating, or diaphoresis. Physical Exam Physical Exam General: Well developed, well nourished, no acute distress, well appearing HEENT: Pupils equally round and reactive to light, EOMI, no discharge, normal conjunctiva Neck: Supple, no nuchal rigidity, no JVD, trachea midline, no tenderness Cardiac: RRR, no murmurs, no gallops, no rubs Chest/Lungs: CTAB, no wheeze, no rhonchi, no crackles Abdomen: soft, non-distended, no guarding, no peritoneal signs, non-tender Back: No tenderness Extremities: no edema, pulses intact, non-tender,capillary refill <3 sec bilateral upper and lower extremities, Neuro: Alert and oriented x 4, no focal deficits, normal speech Vitals Vitals: Vital Signs Date Time Temp Pulse Resp B/P (MAP) Pulse Ox O2 Delivery O2 Flow Rate FiO2 02/09/19 15:37 103 202/109 02/09/19 15:00 24 97 Nasal Cannula 2.0 02/09/19 11:30 99.1 99.1 Labs Labs Laboratory Tests Test 02/07/19 16:26 02/07/19 20:12 02/08/19 06:10 02/08/19 07:18 Glucose (Fingerstick) 147 mg/dL (70-99) 178 mg/dL (70-99) 165 mg/dL (70-99) Urine Collection Type Unknown Urine Color Yellow Urine Clarity Clear Urine pH 5.5 Urine Specific [place] 1.015 Urine Protein 30 mg/dL (NEG-TRACE) Urine Glucose (UA) Negative mg/dL (NEG) Urine Ketones (Stick) 40 mg/dL (NEG) Urine Blood Negative (NEG) Urine Nitrite Positive (NEG) Urine Bilirubin Negative (NEG) Urine Urobilinogen Dipstick 1.0 mg/dL (0.2 mg/dL) Urine Leukocyte Esterase Moderate (NEG) Urine RBC Occ /HPF (0-2) Urine WBC Tntc /HPF (0-4) Urine Squamous Epithelial Cells Mod /LPF Urine Bacteria Many /HPF (0-FEW) Urine Mucus Marked /LPF Test 02/08/19 10:54 02/08/19 16:29 02/08/19 20:34 02/09/19 07:13 Glucose (Fingerstick) 205 mg/dL (70-99) 154 mg/dL (70-99) 158 mg/dL (70-99) 178 mg/dL (70-99) Test 02/09/19 08:29 02/09/19 10:34 02/09/19 13:10 White Blood Count 9.7 x10^3/uL (4.0-11.0) Red Blood Count 4.22 x10^6/uL (3.50-5.40) Hemoglobin 13.2 g/dL (12.0-15.5) Hematocrit 39.9 % (36.0-47.0) Mean Corpuscular Volume 94 fL (79-100) Mean Corpuscular Hemoglobin 31 pg (25-35) Mean Corpuscular Hemoglobin Concent 33 g/dL (31-37) Red Cell Distribution Width 12.9 % (11.5-14.5) Platelet Count 220 x10^3/uL (140-400) Neutrophils (%) (Auto) 64 % (31-73) Lymphocytes (%) (Auto) 23 % (24-48) Monocytes (%) (Auto) 12 % (0-9) Eosinophils (%) (Auto) 0 % (0-3) Basophils (%) (Auto) 0 % (0-3) Neutrophils # (Auto) 6.2 x10^3/uL (1.8-7.7) Lymphocytes # (Auto) 2.3 x10^3/uL (1.0-4.8) Monocytes # (Auto) 1.2 x10^3/uL (0.0-1.1) Eosinophils # (Auto) 0.0 x10^3/uL (0.0-0.7) Basophils # (Auto) 0.0 x10^3/uL (0.0-0.2) Prothrombin Time 12.9 SEC (11.7-14.0) Prothromb Time International Ratio 1.0 (0.8-1.1) Activated Partial Thromboplast Time 28 SEC (24-38) Sodium Level 142 mmol/L (136-145) Potassium Level 3.9 mmol/L (3.5-5.1) Chloride Level 106 mmol/L (98-107) Carbon Dioxide Level 27 mmol/L (21-32) Anion Gap 9 (6-14) Blood Urea Nitrogen 10 mg/dL (7-20) Creatinine 0.8 mg/dL (0.6-1.0) Estimated GFR (Cockcroft-Gault) 84.6 BUN/Creatinine Ratio 13 (6-20) Glucose Level 195 mg/dL (70-99) Calcium Level 10.2 mg/dL (8.5-10.1) Total Bilirubin 0.6 mg/dL (0.2-1.0) Aspartate Amino Transf (AST/SGOT) 11 U/L (15-37) Alanine Aminotransferase (ALT/SGPT) 13 U/L (14-59) Alkaline Phosphatase 89 U/L (46-116) Total Protein 7.5 g/dL (6.4-8.2) Albumin 3.3 g/dL (3.4-5.0) Albumin/Globulin Ratio 0.8 (1.0-1.7) Triglycerides Level 66 mg/dL (0-150) Cholesterol Level 169 mg/dL (0-200) LDL Cholesterol, Calculated 86 mg/dL (0-100) VLDL Cholesterol, Calculated 13 mg/dL (0-40) Non-HDL Cholesterol Calculated 99 mg/dL (0-129) HDL Cholesterol 70 mg/dL (40-60) Cholesterol/HDL Ratio 2.4 Thyroid Stimulating Hormone (TSH) 0.062 uIU/mL (0.358-3.74) Glucose (Fingerstick) 184 mg/dL (70-99) Lactic Acid Level 1.2 mmol/L (0.4-2.0) Laboratory Tests Test 02/08/19 16:29 02/08/19 20:34 02/09/19 07:13 02/09/19 08:29 Glucose (Fingerstick) 154 mg/dL (70-99) 158 mg/dL (70-99) 178 mg/dL (70-99) White Blood Count 9.7 x10^3/uL (4.0-11.0) Red Blood Count 4.22 x10^6/uL (3.50-5.40) Hemoglobin 13.2 g/dL (12.0-15.5) Hematocrit 39.9 % (36.0-47.0) Mean Corpuscular Volume 94 fL (79-100) Mean Corpuscular Hemoglobin 31 pg (25-35) Mean Corpuscular Hemoglobin Concent 33 g/dL (31-37) Red Cell Distribution Width 12.9 % (11.5-14.5) Platelet Count 220 x10^3/uL (140-400) Neutrophils (%) (Auto) 64 % (31-73) Lymphocytes (%) (Auto) 23 % (24-48) Monocytes (%) (Auto) 12 % (0-9) Eosinophils (%) (Auto) 0 % (0-3) Basophils (%) (Auto) 0 % (0-3) Neutrophils # (Auto) 6.2 x10^3/uL (1.8-7.7) Lymphocytes # (Auto) 2.3 x10^3/uL (1.0-4.8) Monocytes # (Auto) 1.2 x10^3/uL (0.0-1.1) Eosinophils # (Auto) 0.0 x10^3/uL (0.0-0.7) Basophils # (Auto) 0.0 x10^3/uL (0.0-0.2) Prothrombin Time 12.9 SEC (11.7-14.0) Prothromb Time International Ratio 1.0 (0.8-1.1) Activated Partial Thromboplast Time 28 SEC (24-38) Sodium Level 142 mmol/L (136-145) Potassium Level 3.9 mmol/L (3.5-5.1) Chloride Level 106 mmol/L (98-107) Carbon Dioxide Level 27 mmol/L (21-32) Anion Gap 9 (6-14) Blood Urea Nitrogen 10 mg/dL (7-20) Creatinine 0.8 mg/dL (0.6-1.0) Estimated GFR (Cockcroft-Gault) 84.6 BUN/Creatinine Ratio 13 (6-20) Glucose Level 195 mg/dL (70-99) Calcium Level 10.2 mg/dL (8.5-10.1) Total Bilirubin 0.6 mg/dL (0.2-1.0) Aspartate Amino Transf (AST/SGOT) 11 U/L (15-37) Alanine Aminotransferase (ALT/SGPT) 13 U/L (14-59) Alkaline Phosphatase 89 U/L (46-116) Total Protein 7.5 g/dL (6.4-8.2) Albumin 3.3 g/dL (3.4-5.0) Albumin/Globulin Ratio 0.8 (1.0-1.7) Triglycerides Level 66 mg/dL (0-150) Cholesterol Level 169 mg/dL (0-200) LDL Cholesterol, Calculated 86 mg/dL (0-100) VLDL Cholesterol, Calculated 13 mg/dL (0-40) Non-HDL Cholesterol Calculated 99 mg/dL (0-129) HDL Cholesterol 70 mg/dL (40-60) Cholesterol/HDL Ratio 2.4 Thyroid Stimulating Hormone (TSH) 0.062 uIU/mL (0.358-3.74) Test 02/09/19 10:34 02/09/19 13:10 Glucose (Fingerstick) 184 mg/dL (70-99) Lactic Acid Level 1.2 mmol/L (0.4-2.0) VLAD HOPKINS MD Feb 09, 2019 16:29
--- NOTE | 2019-02-09 18:06 | PATHOLOGY ---
[facility] Accession Number: [id number] . 01 Material submitted: . esophagus - DISTAL ESOPHAGUS. Modifiers: distal . 01 Clinical history: . Nausea with vomiting . 02 Diagnosis: Esophageal biopsy, distal esophagus: - Segment of hyperplastic squamous esophageal mucosa and muscularis mucosa showing acute inflammation, consistent with reflux esophagitis. . (JPM:mml; 02/09/2019) QLM 02/09/2019 1400 Local . 02 Comment: Sections of the distal esophageal biopsy reveal a tangentially-oriented segment of hyperplastic squamous esophageal mucosa and focally attached muscularis mucosa showing marked acute inflammation. The findings are consistent with reflux esophagitis. There is no evidence of Guevara's change, dysplasia, or malignancy. . (JPM:mml; 02/09/2019) . 02 Electronically signed: . Linden Mckeon MD, Pathologist NPI- [id number] . 01 Gross description: . Received in formalin labeled "Massey, Deidre, distal esophagus reflux, rule out Guevara's," is a single segment of avalos soft tissue measuring 0.4 cm in maximum dimension. The specimen is entirely submitted in cassette A1. (TSD; 02/08/2019) TOB/TOB 02/08/2019 1728 Local . 02 Pathologist provided ICD-10: K21.0 . 02 CPT . 892305 Specimen Comment: A courtesy copy of this report has been sent to Specimen Comment: [phone], , , . Specimen Comment: Report sent to ,DR SMITH,DR REYES / DR PAULINO Performed at: [address], [place], [place] [id number] MD Andrea Nicholas MD Phone: [phone] Performed at: [address] [id number] MD Linden Mckeon MD Phone: [phone]
--- NOTE | 2019-02-09 20:00 | NUR ---
Patient awake, nods or shakes head no appropriately to questions but will only occasionally speak a single word at a time (cold, pain) but will not verbally answer any questions. Does move all extremities but left upper and lower extremities are weaker than the right. Unable to stick out her tongue, smile, or raise eyebrows on command to evaluated for any facial drooping. Will continue to monitor. Addendum: 02/09/19 at 2215 by DAIANA CISNEROS RN Amended: Links added.
[2019-02-09] MEDS: MORPHINE SULFATE 2 MG/ML VIAL. IV PRN (20:44)
[2019-02-09] MEDS: ENOXAPARIN 40 MG/0.4 ML SYRINGE. SQ SCH (20:51)
[2019-02-09] MEDS ORDERED: FAMOTIDINE 20 MG/2 ML VIAL IVP SCH (21:00)
[2019-02-10] VITALS (29 sets, daily range): BP systolic 112–179; BP diastolic 62–99
[2019-02-10] MEDS: LABETALOL 20 MG/4 ML DISP.SYRIN. IVP SCH ×6 (00:03→20:00)
[2019-02-10] MEDS: IV NORMAL SALINE 1000ML BAG 1,000 ML IV SCH ×4 (00:04→21:17)
[2019-02-10] MEDS: PIPERACILLIN/TAZOBACTAM 3.375 GM in IV NORMAL SALINE 50ML 50 ML IV SCH ×5 (00:04→23:42)
[2019-02-10 05:38] LABS: BASO # 0.1 x10^3/uL (0.0-0.2); BASO % 1 % (0-3); EOS % 0 % (0-3); HEMATOCRIT 39.1 % (36.0-47.0); HEMOGLOBIN 13.1 g/dL (12.0-15.5); LYMPH % 25 % (24-48); MEAN CORPUSCULAR HEMOGLOBIN 32 pg (25-35); MEAN CORPUSCULAR HGB CONC 33 g/dL (31-37); MEAN CORPUSCULAR VOLUME 95 fL (79-100); MONO # 0.8 x10^3/uL (0.0-1.1); MONO % 10 % (0-9); NEUT # 5.1 x10^3/uL (1.8-7.7); NEUT % 64 % (31-73); PLATELET COUNT 205 x10^3/uL (140-400); RED BLOOD COUNT 4.13 x10^6/uL (3.50-5.40); RED CELL DISTRIBUTION WIDTH 13.1 % (11.5-14.5); WHITE BLOOD COUNT 7.9 x10^3/uL (4.0-11.0)
[2019-02-10 06:04] LABS: ALBUMIN 3.1 g/dL (3.4-5.0); ALBUMIN/GLOBULIN RATIO 0.7 (1.0-1.7); CALCIUM 10.4 mg/dL (8.5-10.1); CREATININE 0.8 mg/dL (0.6-1.0); GFR 84.6; POTASSIUM 3.7 mmol/L (3.5-5.1); TOTAL BILIRUBIN 0.6 mg/dL (0.2-1.0); TOTAL PROTEIN 7.3 g/dL (6.4-8.2)
--- NOTE | 2019-02-10 08:16 | NUR ---
After bedside shift report, RN noted no change from previous shift. Patient is able to nod head yes and no. Told RN that she was "hot". Not able to speak on command, but is able to follow commands and move BLE and BUE when asked. Very weak, but not on one particular side more than the other. See CT, MRI results. Will discuss with Neurology when rounding. See assessments, VS.
[2019-02-10] MEDS: amLODIPine BESYLATE 5 MG TABLET PO SCH (09:00)
[2019-02-10] MEDS: PANTOPRAZOLE IV PUSH 40 MG VIAL. IVP SCH ×2 (10:08→17:07)
[2019-02-10] MEDS: ENOXAPARIN 40 MG/0.4 ML SYRINGE. SQ SCH ×2 (10:09→21:18)
[2019-02-10] MEDS: MORPHINE SULFATE 2 MG/ML VIAL. IV PRN ×4 (11:03→23:40)
--- NOTE | 2019-02-10 12:31 | PDOC ---
CARDIO Progress Notes Date and Time Date of Service 02/10/19 Time of Evaluation 1220 Subjective Subjective: No Chest Pain, No shortness of breath, No Palpitations Vitals Vitals Vital Signs Date Time Temp Pulse Resp B/P (MAP) Pulse Ox O2 Delivery O2 Flow Rate FiO2 02/10/19 11:46 18 100 Room Air 2.0 02/10/19 10:09 89 140/83 02/10/19 04:00 99.3 99.3 Weight Weight [ ] Input and Output Intake and Output Intake and Output 02/10/19 07:02 Intake Total 1352 ml Output Total 830 ml Balance 522 ml Intake Oral 0 ml IV Total 1352 ml Output Urine Total 830 ml # Voids 2 Laboratory Labs Laboratory Tests Test 02/09/19 13:10 02/09/19 16:33 02/09/19 20:49 02/10/19 05:15 Lactic Acid Level 1.2 mmol/L (0.4-2.0) Glucose (Fingerstick) 182 mg/dL (70-99) 190 mg/dL (70-99) White Blood Count 7.9 x10^3/uL (4.0-11.0) Red Blood Count 4.13 x10^6/uL (3.50-5.40) Hemoglobin 13.1 g/dL (12.0-15.5) Hematocrit 39.1 % (36.0-47.0) Mean Corpuscular Volume 95 fL (79-100) Mean Corpuscular Hemoglobin 32 pg (25-35) Mean Corpuscular Hemoglobin Concent 33 g/dL (31-37) Red Cell Distribution Width 13.1 % (11.5-14.5) Platelet Count 205 x10^3/uL (140-400) Neutrophils (%) (Auto) 64 % (31-73) Lymphocytes (%) (Auto) 25 % (24-48) Monocytes (%) (Auto) 10 % (0-9) Eosinophils (%) (Auto) 0 % (0-3) Basophils (%) (Auto) 1 % (0-3) Neutrophils # (Auto) 5.1 x10^3/uL (1.8-7.7) Lymphocytes # (Auto) 2.0 x10^3/uL (1.0-4.8) Monocytes # (Auto) 0.8 x10^3/uL (0.0-1.1) Eosinophils # (Auto) 0.0 x10^3/uL (0.0-0.7) Basophils # (Auto) 0.1 x10^3/uL (0.0-0.2) Sodium Level 145 mmol/L (136-145) Potassium Level 3.7 mmol/L (3.5-5.1) Chloride Level 108 mmol/L (98-107) Carbon Dioxide Level 28 mmol/L (21-32) Anion Gap 9 (6-14) Blood Urea Nitrogen 14 mg/dL (7-20) Creatinine 0.8 mg/dL (0.6-1.0) Estimated GFR (Cockcroft-Gault) 84.6 BUN/Creatinine Ratio 18 (6-20) Glucose Level 203 mg/dL (70-99) Calcium Level 10.4 mg/dL (8.5-10.1) Total Bilirubin 0.6 mg/dL (0.2-1.0) Aspartate Amino Transf (AST/SGOT) 15 U/L (15-37) Alanine Aminotransferase (ALT/SGPT) 27 U/L (14-59) Alkaline Phosphatase 82 U/L (46-116) Total Protein 7.3 g/dL (6.4-8.2) Albumin 3.1 g/dL (3.4-5.0) Albumin/Globulin Ratio 0.7 (1.0-1.7) Physical Exam HEENT: Neck Supple W Full Motion Chest: Symmetric LUNGS: Clear to Auscultation, Other (diminished bases) Heart: S1S2, RRR Abdomen: Other (soft ) Extremities: Other (trace bilateral LE edema ) Neurology: alert, other (unable to assess, expressive aphasia ) Assessment Assessment 1. Strokelike symptoms: Generalized weakness and expressive aphasia . ? TIA. CT and MRI negative for acute changes. Failed swallow study again today 2. Accelerated HTN; better controlled. Off cardene 3. Metabolic encephalopathy 4. Hyperlipidemia 5. DM2 6. Morbid obesity 7. Erosive esophagitis: per EGD. GI following 8. UTI Recommendations Clonidine patch Continue IV labetalol while NPO Hydralazine IV PRN Secondary prevention measures. Supportive care. Monitor rhythm DINAH LENNON APRN Feb 10, 2019 12:31
--- NOTE | 2019-02-10 13:03 | PDOC ---
Subjective: Subjective: "Thirsty." Some nausea and some abd pain as in the past. Objective: Objective: Reviewed w/ nurse - failed swallow, vomited earlier - TIAs. Vital Signs: Vital Signs Date Time Temp Pulse Resp B/P (MAP) Pulse Ox O2 Delivery O2 Flow Rate FiO2 02/10/19 12:00 98.2 71 15 129/83 (98) 99 Nasal Cannula 2.0 98.2 Labs: Laboratory Tests Test 02/09/19 13:10 02/09/19 16:33 02/09/19 20:49 02/10/19 05:15 Lactic Acid Level 1.2 mmol/L Glucose (Fingerstick) 182 mg/dL 190 mg/dL White Blood Count 7.9 x10^3/uL Red Blood Count 4.13 x10^6/uL Hemoglobin 13.1 g/dL Hematocrit 39.1 % Mean Corpuscular Volume 95 fL Mean Corpuscular Hemoglobin 32 pg Mean Corpuscular Hemoglobin Concent 33 g/dL Red Cell Distribution Width 13.1 % Platelet Count 205 x10^3/uL Neutrophils (%) (Auto) 64 % Lymphocytes (%) (Auto) 25 % Monocytes (%) (Auto) 10 % Eosinophils (%) (Auto) 0 % Basophils (%) (Auto) 1 % Neutrophils # (Auto) 5.1 x10^3/uL Lymphocytes # (Auto) 2.0 x10^3/uL Monocytes # (Auto) 0.8 x10^3/uL Eosinophils # (Auto) 0.0 x10^3/uL Basophils # (Auto) 0.1 x10^3/uL Sodium Level 145 mmol/L Potassium Level 3.7 mmol/L Chloride Level 108 mmol/L Carbon Dioxide Level 28 mmol/L Anion Gap 9 Blood Urea Nitrogen 14 mg/dL Creatinine 0.8 mg/dL Estimated GFR (Cockcroft-Gault) 84.6 BUN/Creatinine Ratio 18 Glucose Level 203 mg/dL Calcium Level 10.4 mg/dL Total Bilirubin 0.6 mg/dL Aspartate Amino Transf (AST/SGOT) 15 U/L Alanine Aminotransferase (ALT/SGPT) 27 U/L Alkaline Phosphatase 82 U/L Total Protein 7.3 g/dL Albumin 3.1 g/dL Albumin/Globulin Ratio 0.7 . Diagnosis: Esophageal biopsy, distal esophagus: - Segment of hyperplastic squamous esophageal mucosa and muscularis mucosa showing acute inflammation, consistent with reflux esophagitis. Sections of the distal esophageal biopsy reveal a tangentially-oriented segment of hyperplastic squamous esophageal mucosa and focally attached muscularis mucosa showing marked acute inflammation. The findings are consistent with reflux esophagitis. There is no evidence of Guevara's change, dysplasia, or malignancy. Imaging: CT head IMPRESSION: No acute intracranial hemorrhage. Remote infarct is noted in the left cerebellum, stable. Remote lacunar infarct is noted in the right putamen. Low-attenuation in the periventricular white matter is suggestive of chronic small vessel ischemic changes. Brain MRI IMPRESSION: 1. No acute intracranial finding. 2. Chronic infarcts within the left greater than right cerebellar hemispheres. 3. Scattered areas of white matter and pontine signal change likely due to chronic small vessel disease. PE: GEN: NAD LUNGS: NC HEART: RRR ABD: NABS, soft, epigastric tenderness NEURO/PSYCH: awake - says one word A/P: ?stroke/TIA - no acute findings on imaging HTN - better Erosive esophagitis - path as above -- Continue IV PPI. NESHA GRAHAM Feb 10, 2019 13:03
--- NOTE | 2019-02-10 13:23 | PDOC ---
[facility] PROGRESS NOTE Chief Complaint Chief Complaint Acid reflux TIA Hematemesis History of Present Illness History of Present Illness 02/10/19 Pt seen and examined in the ICU Was sitting upright in chair Accompanied by family Failed swallow test with speech pathology Erosive esophagitis and reflux confirmed by pathology report MRI showed small infarcts and chronic vessel disease DW RN Charts and labs reviewed Vitals/I&O Vitals/I&O: Vital Signs Date Time Temp Pulse Resp B/P (MAP) Pulse Ox O2 Delivery O2 Flow Rate FiO2 02/10/19 13:07 18 99 Nasal Cannula 2.0 02/10/19 12:00 98.2 71 129/83 (98) 98.2 I & O 02/09/19 02/09/19 02/10/19 15:00 23:00 07:00 Intake Total 50 ml 475 ml 877 ml Output Total 540 ml 290 ml Balance 50 ml -65 ml 587 ml Physical Exam Physical Exam: NEW RIGHT SIDED WEAKNESS 02/10 General: Alert, No acute distress Heart: Regular rate (SR), Normal S1, Normal S2, No murmurs Lungs: Clear Abdomen: Soft, No tenderness, Other (obese) Extremities: No cyanosis, No edema Skin: No breakdown, No significant lesion Labs Labs: Laboratory Tests Test 02/09/19 16:33 02/09/19 20:49 02/10/19 05:15 Glucose (Fingerstick) 182 mg/dL (70-99) 190 mg/dL (70-99) White Blood Count 7.9 x10^3/uL (4.0-11.0) Red Blood Count 4.13 x10^6/uL (3.50-5.40) Hemoglobin 13.1 g/dL (12.0-15.5) Hematocrit 39.1 % (36.0-47.0) Mean Corpuscular Volume 95 fL (79-100) Mean Corpuscular Hemoglobin 32 pg (25-35) Mean Corpuscular Hemoglobin Concent 33 g/dL (31-37) Red Cell Distribution Width 13.1 % (11.5-14.5) Platelet Count 205 x10^3/uL (140-400) Neutrophils (%) (Auto) 64 % (31-73) Lymphocytes (%) (Auto) 25 % (24-48) Monocytes (%) (Auto) 10 % (0-9) Eosinophils (%) (Auto) 0 % (0-3) Basophils (%) (Auto) 1 % (0-3) Neutrophils # (Auto) 5.1 x10^3/uL (1.8-7.7) Lymphocytes # (Auto) 2.0 x10^3/uL (1.0-4.8) Monocytes # (Auto) 0.8 x10^3/uL (0.0-1.1) Eosinophils # (Auto) 0.0 x10^3/uL (0.0-0.7) Basophils # (Auto) 0.1 x10^3/uL (0.0-0.2) Sodium Level 145 mmol/L (136-145) Potassium Level 3.7 mmol/L (3.5-5.1) Chloride Level 108 mmol/L (98-107) Carbon Dioxide Level 28 mmol/L (21-32) Anion Gap 9 (6-14) Blood Urea Nitrogen 14 mg/dL (7-20) Creatinine 0.8 mg/dL (0.6-1.0) Estimated GFR (Cockcroft-Gault) 84.6 BUN/Creatinine Ratio 18 (6-20) Glucose Level 203 mg/dL (70-99) Calcium Level 10.4 mg/dL (8.5-10.1) Total Bilirubin 0.6 mg/dL (0.2-1.0) Aspartate Amino Transf (AST/SGOT) 15 U/L (15-37) Alanine Aminotransferase (ALT/SGPT) 27 U/L (14-59) Alkaline Phosphatase 82 U/L (46-116) Total Protein 7.3 g/dL (6.4-8.2) Albumin 3.1 g/dL (3.4-5.0) Albumin/Globulin Ratio 0.7 (1.0-1.7) Review of Systems Review of Systems: No chest pain, no palpitations No headache, no changes in vision Assessment and Plan Assessmemt and Plan Problems Medical Problems: (1) Hypercalcemia Status: Acute (2) Low back pain Status: Acute (3) Nausea and vomiting Status: Acute (4) Uncontrolled diabetes mellitus Status: Acute Assessment Erosive esophagitis Acid reflux TIA Accelerated HTN Plan ICU monitoring ASA 81 mg daily BP control IV PPI Keep NPO Speech pathology following O2 per nasal cannula Consult palliative care Full code Comment Review of Relevant I have reviewed the following items jorge luis (where applicable) has been applied. Medications: Current Medications Medications (Trade) Dose Ordered Sig/Janay Route PRN Reason Start Time Stop Time Status Last Admin Dose Admin Enoxaparin Sodium (Lovenox 40mg Syringe) 40 mg Q12HR SQ 02/09/19 21:00 02/10/19 10:09 Nicardipine HCl 50 mg/Sodium Chloride 250 ml @ 25 mls/hr CONT PRN IV SEE I/O RECORD 02/09/19 17:15 02/09/19 17:42 Morphine Sulfate (Morphine Sulfate) 2 mg PRN Q2HR PRN IV SEVERE PAIN 02/09/19 20:15 02/10/19 13:07 JAMILA ACUNA III DO Feb 10, 2019 13:23
[2019-02-10] MEDS: HYDROmorphone 2 MG/ML VIAL IV PRN ×2 (15:07→21:17)
--- NOTE | 2019-02-10 15:35 | PDOC ---
PROGRESS NOTES Assessment Assessment Coded stroke on the floor. Acute mental status changes. Weakness, not moving UE and LE. Not able to talk. Decreased response. Metabolic encephalopathy. DM. Hyperglycemia. Diabetic neuropathy. HTN. Hypercalcemia. Hyperparathyroidism likely. Vit D deficiency. Old bilateral cerebellar infarcts. Obesity. No evidence of acute CVA this time after neurological evaluation. RECOMMENDATIONS/PLAN: BP control. Treat medical diseases. ASA 81 mg daily. EEG. Not able to perform on her at this time due to hair condition. OT/PT. Discussed with her daughter at bedside in ICU on 02/10/19. Brain MRI on 02/09/19: No acute findings. History of Present Illness This is a 73-year-old AA female patient with PMHx including Arthritis, Asthma, Diabetes-Type II, Heart Disease, Hypertension, TIA, neuropathy was seen multiple times recently in ED for falls and chronic bilateral LE weakness. She was admitted this time on 02/07/19 with complaints of vomiting blood as having 4 episodes of coffee-ground material. On 02/09/19, she was reportedly to have acute MS changes, unresponsiveness, not talking nor moves her extremities, so neurology was called for consultation for coded stroke. Past Medical History Cardiovascular: HTN Musculoskeletal: low back pain. Rheumatologic: Rheumatoid arthritis Endocrine: Diabetes PAST SURGERY HISTORY: No major surgery recently. ALLERGY: NKDA MEDICATIONS: Refer to [facility] FAMILY HISTORY: Non contributory. SOCIAL HISTORY: Lives in care home. Denies current smoking, drinking, and illicit drug use. REVIEW OF SYSTEMS: Constitutional: Obesity. Head: No traumatic brain or head injury. Skin: No edema, or rash. Ear: No infection. Eyes: No vision loss or color blindness. Nose: No bleeding or purulent discharges. Hearing: No hearing decrease. Neck: No injury. Breast: No history of cancer, masses,or discharges. Cardiac: HTN. Pulmonary: No COPD. GI: No GI ulcer, GI bleeding. Urinary/genital: UTI. Endocrinologic: Diabetes Mellitus, obesity. Skeletomuscular: Generalized weakness. Neurological: see HP. Psychiatric: Denies drug use/abuse. Otherwise, not [id number] review of systems. PHYSICAL EXAMINATION: General appearance is in acute distress. HEENT: Normocephalic and nontraumatic. Eyes, nose, ears, and throat are unremarkable. Neck is supple. No lymphadenopathy. No crepitus. Cardiovascular: S1, S2, regular rate and rhythm. Pulmonary: relative clear to auscultation bilaterally. Abdomen: Bowel sounds are positive. Extremities: No rash, lesions, or edema. No restriction of range of motion NEUROLOGICAL EXAMINATION: Awake. Sitting in chair. Able to understand and follow some commands. Not oriented to time, place but knew person. PERRL. EOMI. CN: no focal findings. Muscle tone: within normal. Muscle strength: 4 DTR: 2. Plantar reflex: Flexor response bilaterally Gait: not examined in bed. Sensory exam: Withdrawal response to stimuli. Not able to access cerebellar signs. F-T-N test not performed due to not follow commands . Objective Objective Vital Signs Date Time Temp Pulse Resp B/P (MAP) Pulse Ox O2 Delivery O2 Flow Rate FiO2 02/10/19 15:07 18 98 Nasal Cannula 2.0 02/10/19 14:00 74 140/73 (95) 02/10/19 12:00 98.2 98.2 Intake and Output 02/10/19 06:59 Intake Total 1402 ml Output Total 830 ml Balance 572 ml Intake Oral 0 ml IV Total 1402 ml Output Urine Total 830 ml # Voids 2 Vitals Signs Vitals VS - Last 72 Hours, by Label Date Time Temp Pulse Resp B/P (MAP) Pulse Ox O2 Delivery O2 Flow Rate FiO2 02/10/19 15:07 18 98 Nasal Cannula 2.0 02/10/19 14:00 74 17 140/73 (95) 98 Nasal Cannula 2.0 02/10/19 13:46 18 99 Nasal Cannula 2.0 02/10/19 13:07 18 99 Nasal Cannula 2.0 02/10/19 13:00 78 18 125/62 (83) 98 Nasal Cannula 2.0 02/10/19 12:00 98.2 71 15 129/83 (98) 99 Nasal Cannula 2.0 98.2 02/10/19 12:00 Nasal Cannula 2.0 02/10/19 12:00 89 140/83 02/10/19 11:46 18 100 Room Air 2.0 02/10/19 11:03 18 100 Nasal Cannula 2.0 02/10/19 11:00 77 17 145/81 (102) 99 Nasal Cannula 2.0 02/10/19 10:15 72 21 115/75 (88) 98 Nasal Cannula 2.0 02/10/19 10:09 89 140/83 02/10/19 10:00 90 19 173/86 (115) 97 Nasal Cannula 2.0 02/10/19 09:00 88 18 151/88 (109) 99 Nasal Cannula 2.0 02/10/19 08:00 Room Air 02/10/19 08:00 98.3 90 16 150/90 (110) 99 Nasal Cannula 2.0 98.3 02/10/19 07:15 84 18 144/82 (102) 100 Nasal Cannula 2.0 02/10/19 07:00 91 16 179/91 (120) 100 Nasal Cannula 2.0 02/10/19 06:00 80 18 163/80 (107) 97 Nasal Cannula 2.0 02/10/19 05:00 77 20 170/68 (102) 95 Nasal Cannula 2.0 02/10/19 04:20 78 20 144/69 (94) 97 Nasal Cannula 2.0 02/10/19 04:03 94 171/99 02/10/19 04:00 99.3 94 20 171/99 (123) 98 Nasal Cannula 2.0 99.3 02/10/19 04:00 Room Air 02/10/19 03:00 90 18 112/67 (82) 98 Nasal Cannula 2.0 02/10/19 02:00 85 22 159/81 (107) 98 Nasal Cannula 2.0 02/10/19 01:00 80 22 119/74 (89) 97 Nasal Cannula 2.0 02/10/19 00:30 78 20 119/70 (86) 94 Room Air 02/10/19 00:15 78 24 117/72 (87) 97 Room Air 02/10/19 00:03 91 150/84 02/09/19 23:59 98.8 91 20 150/84 (106) 100 Nasal Cannula 2.0 98.8 02/09/19 23:59 Room Air 02/09/19 23:00 96 22 151/80 (103) 100 Nasal Cannula 2.0 02/09/19 22:00 92 22 158/88 (111) 100 Nasal Cannula 2.0 02/09/19 21:14 22 96 Nasal Cannula 2.0 02/09/19 21:00 85 20 147/81 (103) 99 Nasal Cannula 2.0 02/09/19 20:44 24 97 Nasal Cannula 2.0 02/09/19 20:00 99.4 104 24 150/107 (121) 98 Nasal Cannula 2.0 99.4 02/09/19 20:00 Nasal Cannula 2.0 02/09/19 19:47 109 162/99 02/09/19 19:15 116 24 150/83 (105) 98 Nasal Cannula 2.0 02/09/19 19:00 106 24 190/86 (120) 98 Nasal Cannula 2.0 02/09/19 18:00 106 19 167/94 (118) 98 Nasal Cannula 2.0 02/09/19 17:00 93 19 172/96 (121) 98 Nasal Cannula 2.0 02/09/19 16:30 102 168/81 (110) 02/09/19 16:00 Nasal Cannula 2.0 02/09/19 16:00 99.0 98 19 203/97 (132) 96 Nasal Cannula 2.0 99.0 02/09/19 15:37 103 202/109 02/09/19 15:00 110 24 188/101 (130) 97 Nasal Cannula 2.0 02/09/19 14:00 104 28 181/94 (123) 97 Nasal Cannula 2.0 02/09/19 13:00 96 34 174/86 (115) 94 Nasal Cannula 2.0 02/09/19 12:51 120 183/97 02/09/19 12:45 120 34 183/97 (125) 96 Nasal Cannula 2.0 02/09/19 12:30 174/86 (115) 02/09/19 12:00 Nasal Cannula 2.0 02/09/19 11:30 99.1 124 20 174/80 (111) 100 Nasal Cannula 2.0 99.1 02/09/19 10:25 111 174/108 02/09/19 08:00 Nasal Cannula 2.0 02/09/19 07:54 98.3 98 20 151/93 (112) 97 Nasal Cannula 2.0 98.3 Laboratory Laboratory Laboratory Tests Test 02/09/19 16:33 02/09/19 20:49 02/10/19 05:15 Glucose (Fingerstick) 182 mg/dL (70-99) 190 mg/dL (70-99) White Blood Count 7.9 x10^3/uL (4.0-11.0) Red Blood Count 4.13 x10^6/uL (3.50-5.40) Hemoglobin 13.1 g/dL (12.0-15.5) Hematocrit 39.1 % (36.0-47.0) Mean Corpuscular Volume 95 fL (79-100) Mean Corpuscular Hemoglobin 32 pg (25-35) Mean Corpuscular Hemoglobin Concent 33 g/dL (31-37) Red Cell Distribution Width 13.1 % (11.5-14.5) Platelet Count 205 x10^3/uL (140-400) Neutrophils (%) (Auto) 64 % (31-73) Lymphocytes (%) (Auto) 25 % (24-48) Monocytes (%) (Auto) 10 % (0-9) Eosinophils (%) (Auto) 0 % (0-3) Basophils (%) (Auto) 1 % (0-3) Neutrophils # (Auto) 5.1 x10^3/uL (1.8-7.7) Lymphocytes # (Auto) 2.0 x10^3/uL (1.0-4.8) Monocytes # (Auto) 0.8 x10^3/uL (0.0-1.1) Eosinophils # (Auto) 0.0 x10^3/uL (0.0-0.7) Basophils # (Auto) 0.1 x10^3/uL (0.0-0.2) Sodium Level 145 mmol/L (136-145) Potassium Level 3.7 mmol/L (3.5-5.1) Chloride Level 108 mmol/L (98-107) Carbon Dioxide Level 28 mmol/L (21-32) Anion Gap 9 (6-14) Blood Urea Nitrogen 14 mg/dL (7-20) Creatinine 0.8 mg/dL (0.6-1.0) Estimated GFR (Cockcroft-Gault) 84.6 BUN/Creatinine Ratio 18 (6-20) Glucose Level 203 mg/dL (70-99) Calcium Level 10.4 mg/dL (8.5-10.1) Total Bilirubin 0.6 mg/dL (0.2-1.0) Aspartate Amino Transf (AST/SGOT) 15 U/L (15-37) Alanine Aminotransferase (ALT/SGPT) 27 U/L (14-59) Alkaline Phosphatase 82 U/L (46-116) Total Protein 7.3 g/dL (6.4-8.2) Albumin 3.1 g/dL (3.4-5.0) Albumin/Globulin Ratio 0.7 (1.0-1.7) Microbiology 02/09/19 Blood Culture - Preliminary, Resulted NO GROWTH AFTER 1 DAY Medication Medications Current Medications Aspirin (Children'S Aspirin) 81 mg DAILYWBKFT PO ; Start 02/11/19 at 08:00 Enoxaparin Sodium (Lovenox 40mg Syringe) 40 mg Q12HR SQ Last administered on 02/10/19at 10:09; Start 02/09/19 at 21:00 Famotidine (Pepcid Vial) 20 mg BID IVP ; Start 02/09/19 at 21:00; Stop 02/09/19 at 11:30; Status DC Lactobacillus Rhamnosus (Culturelle) 1 cap BID PO ; Start 02/10/19 at 21:00 Morphine Sulfate (Morphine Sulfate) 2 mg PRN Q2HR PRN IV SEVERE PAIN Last administered on 02/10/19at 13:07; Start 02/09/19 at 20:15 Nicardipine HCl 50 mg/Sodium Chloride 250 ml @ 25 mls/hr CONT PRN IV SEE I/O RECORD Last administered on 02/09/19at 17:42; Start 02/09/19 at 17:15 Pantoprazole Sodium (PROTONIX VIAL for IV PUSH) 40 mg BIDAC IVP ; Start 02/10/19 at 16:30 Comment Review of Relevant I have reviewed the following items jorge luis (where applicable) has been applied. VLAD HOPKINS MD Feb 10, 2019 15:35
--- NOTE | 2019-02-10 16:12 | NUR ---
Patient's neurological status improved as shift progressed. Patient is completely verbal now. A/O, forgetful at times, but able to speak in sentences and is aware of surroundings. Able to tell nurse she is in pain and the location. ST worked with patient, did not pass evaluation. RN is giving mouth swabs only. No new imaging orders received from neurology. See assessments.
--- NOTE | 2019-02-10 17:43 | PDOC2 ---
PALLIATIVE CARE Palliative Care Note Palliative Care Consult requested by Dr. Olea Medical assessment per medical record; Medical Problems: (1) Hypercalcemia (2) Low back pain (3) Nausea and vomiting (4) Uncontrolled diabetes mellitus Erosive esophagitis Acid reflux TIA Accelerated HTN Patient alert. Spoke with Jolanta daughter. Plan family meeting tomorrow at 1300 Full Code FIORELLA MUELLER Feb 10, 2019 17:43
[2019-02-10] MEDS ORDERED: PHENYLEPH/MINERAL OIL/PETROLAT RECTAL OINTMENT TUBE. RC PRN (20:00)
--- NOTE | 2019-02-10 20:00 | NUR ---
Patient initially requesting 'something to help me sleep', paged Dr Nolasco. Dr Nolasco returned page at [phone], notified of patient's request and this RN's concern with administering any med that may mask symptoms of TIA/CVA. Orders received for Benadryl 12.5MG IVP PRN QHS. Patient notified of orders but then complained of her bottom/rectum hurting, patient reports she has had hemorrhoids in the past. With assessment, no wounds seen on coccyx/sacrum/rectum or external hemorrhoids seen. Dr Nolasco again paged, returned page at [phone], notified of patient's rectal pain; orders received for Preparation H to rectum PRN QID. Patient notified of orders.
[2019-02-10] MEDS: LACTOBACILLUS RHAMNOSUS GG 1 CAPSULE. PO SCH (21:00)
[2019-02-10] MEDS: diphenhydrAMINE 50 MG/ML VIAL IVP PRN (22:09)
[2019-02-11] VITALS (16 sets, daily range): BP systolic 113–172; BP diastolic 57–100
--- NOTE | 2019-02-11 00:51 | NUR ---
After administration of Benadryl (for sleep) and Morphine (pain), patient is still unable to sleep, Dr Hart paged. Dr Hart returned page at [phone], notified of insomnia and medications administered; orders received to give Ativan 1MG IVP PRN QHS. See orders.
[2019-02-11] MEDS: LABETALOL 20 MG/4 ML DISP.SYRIN. IVP SCH ×3 (04:00→09:33)
[2019-02-11] MEDS: MORPHINE SULFATE 2 MG/ML VIAL. IV PRN ×4 (05:20→23:56)
[2019-02-11] MEDS: PIPERACILLIN/TAZOBACTAM 3.375 GM in IV NORMAL SALINE 50ML 50 ML IV SCH ×3 (05:27→18:00)
[2019-02-11 09:30] LABS: HEMATOCRIT 37.7 % (36.0-47.0); HEMOGLOBIN 12.4 g/dL (12.0-15.5); RED BLOOD COUNT 3.94 x10^6/uL (3.50-5.40); RED CELL DISTRIBUTION WIDTH 13.2 % (11.5-14.5); WHITE BLOOD COUNT 6.7 x10^3/uL (4.0-11.0)
[2019-02-11] MEDS: ENOXAPARIN 40 MG/0.4 ML SYRINGE. SQ SCH ×2 (09:31→21:07)
[2019-02-11] MEDS: PANTOPRAZOLE IV PUSH 40 MG VIAL. IVP SCH ×2 (09:32→16:30)
--- NOTE | 2019-02-11 09:59 | PDOC ---
[employer] PROGRESS NOTE Chief Complaint Chief Complaint Acid reflux TIA Hematemesis History of Present Illness History of Present Illness 02/11/19 Pt seen and examined in ICU Pt seen sitting up with the nurses Pt passed swallow test with speech therapy and has been started on honey thick diet Alert, oriented Hopefully will move patient up to a med floor today Charts and labs reviewed ROBIN RN 02/10/19 Pt seen and examined in the ICU Was sitting upright in chair Accompanied by family Failed swallow test with speech pathology Erosive esophagitis and reflux confirmed by pathology report MRI showed small infarcts and chronic vessel disease ROBIN RN Charts and labs reviewed Vitals/I&O Vitals/I&O: Vital Signs Date Time Temp Pulse Resp B/P (MAP) Pulse Ox O2 Delivery O2 Flow Rate FiO2 02/11/19 09:33 83 168/89 02/11/19 07:00 20 100 Nasal Cannula 2.0 02/11/19 04:00 98.8 98.8 I & O 02/10/19 02/10/19 02/11/19 14:59 22:59 06:59 Intake Total 50 ml 50 ml 1339 ml Output Total 385 ml 185 ml 320 ml Balance -335 ml -135 ml 1019 ml Physical Exam Physical Exam: NEW RIGHT SIDED WEAKNESS 02/10 General: Alert, No acute distress Heart: Regular rate (SR), Normal S1, Normal S2, No murmurs Lungs: Clear Abdomen: Soft, No tenderness, Other (obese) Extremities: No cyanosis, No edema Skin: No breakdown, No significant lesion Labs Labs: Laboratory Tests Test 02/10/19 21:22 02/11/19 09:15 Glucose (Fingerstick) 196 mg/dL (70-99) White Blood Count 6.7 x10^3/uL (4.0-11.0) Red Blood Count 3.94 x10^6/uL (3.50-5.40) Hemoglobin 12.4 g/dL (12.0-15.5) Hematocrit 37.7 % (36.0-47.0) Mean Corpuscular Volume 96 fL (79-100) Mean Corpuscular Hemoglobin 32 pg (25-35) Mean Corpuscular Hemoglobin Concent 33 g/dL (31-37) Red Cell Distribution Width 13.2 % (11.5-14.5) Platelet Count 204 x10^3/uL (140-400) Review of Systems Review of Systems: Denies chest pain Denies SOA Assessment and Plan Assessmemt and Plan Problems Medical Problems: (1) Hypercalcemia Status: Acute (2) Low back pain Status: Acute (3) Nausea and vomiting Status: Acute (4) Uncontrolled diabetes mellitus Status: Acute Assessment Erosive esophagitis Acid reflux TIA Accelerated HTN Plan ICU monitoring Hope to advance diet Honey thick liquids for now PT/OT ASA 81 mg daily BP control Speech pathology following O2 per nasal cannula Appreciate palliative input Hopeful move to med floor today Full code Comment Review of Relevant I have reviewed the following items jorge luis (where applicable) has been applied. Medications: Current Medications Medications (Trade) Dose Ordered Sig/Janay Route PRN Reason Start Time Stop Time Status Last Admin Dose Admin Pantoprazole Sodium (PROTONIX VIAL for IV PUSH) 40 mg BIDAC IVP 02/10/19 16:30 02/11/19 09:32 Diphenhydramine HCl (Benadryl) 12.5 mg PRN QHS PRN IVP ITCHING 02/10/19 19:45 02/10/19 22:09 Phenyleph/Shark Oil/Min Oil/Petrol (Preparation H) 1 kristin PRN QID PRN RC RECTAL PAIN 02/10/19 20:00 02/10/19 20:18 Lorazepam (Ativan Inj) 1 mg PRN QHS PRN IVP ANXIETY / AGITATION 02/11/19 01:00 02/11/19 00:56 JAMILA ACUNA III DO Feb 11, 2019 09:59
[2019-02-11 10:11] LABS: ALBUMIN/GLOBULIN RATIO 0.8 (1.0-1.7); CALCIUM 10.1 mg/dL (8.5-10.1); CREATININE 0.8 mg/dL (0.6-1.0); GFR 84.6; POTASSIUM 3.6 mmol/L (3.5-5.1); TOTAL BILIRUBIN 0.5 mg/dL (0.2-1.0); TOTAL PROTEIN 6.9 g/dL (6.4-8.2)
--- NOTE | 2019-02-11 10:26 | PDOC ---
[facility] PROGRESS NOTE Reason for Follow-up Nausea persists Subjective Without new complaints Physical Exam Lungs decreased BS CV S1 S2 ABD +BS, soft, nontender Review of Relevant I have reviewed the following items jorge luis (where applicable) has been applied. Labs Laboratory Tests Test 02/09/19 10:34 02/09/19 13:10 02/09/19 16:33 02/09/19 20:49 Glucose (Fingerstick) 184 mg/dL (70-99) 182 mg/dL (70-99) 190 mg/dL (70-99) Lactic Acid Level 1.2 mmol/L (0.4-2.0) Test 02/10/19 05:15 02/10/19 21:22 02/11/19 09:15 White Blood Count 7.9 x10^3/uL (4.0-11.0) 6.7 x10^3/uL (4.0-11.0) Red Blood Count 4.13 x10^6/uL (3.50-5.40) 3.94 x10^6/uL (3.50-5.40) Hemoglobin 13.1 g/dL (12.0-15.5) 12.4 g/dL (12.0-15.5) Hematocrit 39.1 % (36.0-47.0) 37.7 % (36.0-47.0) Mean Corpuscular Volume 95 fL (79-100) 96 fL (79-100) Mean Corpuscular Hemoglobin 32 pg (25-35) 32 pg (25-35) Mean Corpuscular Hemoglobin Concent 33 g/dL (31-37) 33 g/dL (31-37) Red Cell Distribution Width 13.1 % (11.5-14.5) 13.2 % (11.5-14.5) Platelet Count 205 x10^3/uL (140-400) 204 x10^3/uL (140-400) Neutrophils (%) (Auto) 64 % (31-73) Lymphocytes (%) (Auto) 25 % (24-48) Monocytes (%) (Auto) 10 % (0-9) Eosinophils (%) (Auto) 0 % (0-3) Basophils (%) (Auto) 1 % (0-3) Neutrophils # (Auto) 5.1 x10^3/uL (1.8-7.7) Lymphocytes # (Auto) 2.0 x10^3/uL (1.0-4.8) Monocytes # (Auto) 0.8 x10^3/uL (0.0-1.1) Eosinophils # (Auto) 0.0 x10^3/uL (0.0-0.7) Basophils # (Auto) 0.1 x10^3/uL (0.0-0.2) Sodium Level 145 mmol/L (136-145) 144 mmol/L (136-145) Potassium Level 3.7 mmol/L (3.5-5.1) 3.6 mmol/L (3.5-5.1) Chloride Level 108 mmol/L (98-107) 109 mmol/L (98-107) Carbon Dioxide Level 28 mmol/L (21-32) 29 mmol/L (21-32) Anion Gap 9 (6-14) 6 (6-14) Blood Urea Nitrogen 14 mg/dL (7-20) 10 mg/dL (7-20) Creatinine 0.8 mg/dL (0.6-1.0) 0.8 mg/dL (0.6-1.0) Estimated GFR (Cockcroft-Gault) 84.6 84.6 BUN/Creatinine Ratio 18 (6-20) 13 (6-20) Glucose Level 203 mg/dL (70-99) 167 mg/dL (70-99) Calcium Level 10.4 mg/dL (8.5-10.1) 10.1 mg/dL (8.5-10.1) Total Bilirubin 0.6 mg/dL (0.2-1.0) 0.5 mg/dL (0.2-1.0) Aspartate Amino Transf (AST/SGOT) 15 U/L (15-37) 13 U/L (15-37) Alanine Aminotransferase (ALT/SGPT) 27 U/L (14-59) 12 U/L (14-59) Alkaline Phosphatase 82 U/L (46-116) 74 U/L (46-116) Total Protein 7.3 g/dL (6.4-8.2) 6.9 g/dL (6.4-8.2) Albumin 3.1 g/dL (3.4-5.0) 3.0 g/dL (3.4-5.0) Albumin/Globulin Ratio 0.7 (1.0-1.7) 0.8 (1.0-1.7) Glucose (Fingerstick) 196 mg/dL (70-99) Laboratory Tests Test 02/10/19 21:22 02/11/19 09:15 Glucose (Fingerstick) 196 mg/dL (70-99) White Blood Count 6.7 x10^3/uL (4.0-11.0) Red Blood Count 3.94 x10^6/uL (3.50-5.40) Hemoglobin 12.4 g/dL (12.0-15.5) Hematocrit 37.7 % (36.0-47.0) Mean Corpuscular Volume 96 fL (79-100) Mean Corpuscular Hemoglobin 32 pg (25-35) Mean Corpuscular Hemoglobin Concent 33 g/dL (31-37) Red Cell Distribution Width 13.2 % (11.5-14.5) Platelet Count 204 x10^3/uL (140-400) Sodium Level 144 mmol/L (136-145) Potassium Level 3.6 mmol/L (3.5-5.1) Chloride Level 109 mmol/L (98-107) Carbon Dioxide Level 29 mmol/L (21-32) Anion Gap 6 (6-14) Blood Urea Nitrogen 10 mg/dL (7-20) Creatinine 0.8 mg/dL (0.6-1.0) Estimated GFR (Cockcroft-Gault) 84.6 BUN/Creatinine Ratio 13 (6-20) Glucose Level 167 mg/dL (70-99) Calcium Level 10.1 mg/dL (8.5-10.1) Total Bilirubin 0.5 mg/dL (0.2-1.0) Aspartate Amino Transf (AST/SGOT) 13 U/L (15-37) Alanine Aminotransferase (ALT/SGPT) 12 U/L (14-59) Alkaline Phosphatase 74 U/L (46-116) Total Protein 6.9 g/dL (6.4-8.2) Albumin 3.0 g/dL (3.4-5.0) Albumin/Globulin Ratio 0.8 (1.0-1.7) Microbiology 02/09/19 Blood Culture - Preliminary, Resulted NO GROWTH AFTER 1 DAY Medications Current Medications Sodium Chloride 1,000 ml @ 1,000 mls/hr 1X ONCE IV Last administered on 02/07/19at 07:45; Start 02/07/19 at 06:30; Stop 02/07/19 at 07:29; Status DC Pantoprazole Sodium (PROTONIX VIAL for IV PUSH) 40 mg 1X ONCE IVP Last administered on 02/07/19at 07:42; Start 02/07/19 at 06:30; Stop 02/07/19 at 06:31; Status DC Albuterol/ Ipratropium (Duoneb) 3 ml 1X ONCE NEB Last administered on 02/07/19at 07:43; Start 02/07/19 at 07:30; Stop 02/07/19 at 07:31; Status DC Fentanyl Citrate (Fentanyl 2ml Vial) 50 mcg 1X ONCE IVP Last administered on 02/07/19 08:01; Start 02/07/19 at 08:00; Stop 02/07/19 at 08:01; Status DC Ondansetron HCl (Zofran) 4 mg 1X ONCE IV Last administered on 02/07/19at 08:00; Start 02/07/19 at 08:00; Stop 02/07/19 at 08:01; Status DC Fentanyl Citrate (Fentanyl 2ml Vial) 50 mcg 1X ONCE IVP Last administered on 02/07/19at 08:40; Start 02/07/19 at 08:15; Stop 02/07/19 at 08:24; Status DC Ondansetron HCl (Zofran) 4 mg PRN Q8HRS PRN IV NAUSEA/VOMITING Last administered on 02/08/19at 07:57; Start 02/07/19 at 08:15; Stop 02/08/19 at 08:14; Status DC Sodium Chloride 1,000 ml @ 150 mls/hr Q6H40M IV Last administered on 02/08/19at 07:07; Start 02/07/19 at 08:09; Stop 02/08/19 at 08:08; Status DC Morphine Sulfate (Morphine Sulfate) 4 mg 1X ONCE IM Last administered on 02/07/19at 08:53; Start 02/07/19 at 08:45; Stop 02/07/19 at 08:48; Status DC Prochlorperazine Edisylate (Compazine) 5 mg 1X ONCE IM Last administered on 02/07/19 08:52; Start 02/07/19 at 08:45; Stop 02/07/19 at 08:48; Status DC Amlodipine Besylate (Norvasc) 5 mg DAILY PO Last administered on 02/08/19at 07:59; Start 02/07/19 at 10:00 Aspirin (Children'S Aspirin) 81 mg DAILYWBKFT PO Last administered on 02/07/19at 10:45; Start 02/07/19 at 10:00; Stop 02/07/19 at 15:05; Status DC Tramadol HCl (Ultram) 50 mg PRN Q6HRS PRN PO MILD TO MODERATE PAIN Last administered on 02/07/19 18:34; Start 02/07/19 at 11:00 Hydromorphone HCl (Dilaudid) 1 mg PRN Q4HRS PRN IV MODERATE TO SEVERE PAIN Last administered on 02/10/19at 21:17; Start 02/07/19 at 11:00 Hydralazine HCl (Apresoline Inj) 10 mg PRN Q4HRS PRN IVP ELEVATED BP, SEE COMMENTS Last administered on 02/09/19at 10:25; Start 02/07/19 at 15:15 Ondansetron HCl (Zofran) 4 mg PRN Q6HRS PRN IVP NAUSEA/VOMITING Last administered on 02/09/19at 09:59; Start 02/07/19 at 15:15 Midazolam HCl (Versed) 2 mg PRN 1X PRN IV PRIOR TO PROCEDURE; Start 02/08/19 at 10:45; Stop 02/09/19 at 10:44; Status DC Fentanyl Citrate (Fentanyl 2ml Vial) 25 mcg PRN Q5MIN PRN IV X 2 DOSES FOR PAIN; Start 02/08/19 at 10:45; Stop 02/09/19 at 10:44; Status DC Fentanyl Citrate (Fentanyl 2ml Vial) 50 mcg PRN Q5MIN PRN IV X 2 DOSES FOR PAIN; Start 02/08/19 at 10:45; Stop 02/09/19 at 10:44; Status DC Ringer's Solution 1,000 ml @ 125 mls/hr Q8H IV Last administered on 02/08/19at 12:10; Start 02/08/19 at 10:39; Stop 02/08/19 at 22:38; Status DC Lidocaine HCl (Xylocaine-Mpf 1% 2ml Vial) 2 ml 1X PRN PRN ID IV START; Start 02/08/19 at 10:45; Stop 02/09/19 at 10:44; Status DC Propofol 20 ml @ As Directed STK-MED ONCE IV ; Start 02/08/19 at 13:16; Stop 02/08/19 at 13:17; Status DC Lidocaine HCl (Lidocaine Pf 2% Vial) 5 ml STK-MED ONCE .ROUTE ; Start 02/08/19 at 13:16; Stop 02/08/19 at 13:17; Status DC Pantoprazole Sodium (Protonix) 40 mg DAILYAC PO Last administered on 02/08/19at 14:41; Start 02/08/19 at 15:00; Stop 02/09/19 at 11:00; Status DC Clonidine HCl (Catapres Tts-2) 1 patch WEEKLY TD ; Start 02/09/19 at 09:00; Stop 02/08/19 at 17:56; Status DC Clonidine HCl (Catapres Tts-2) 1 patch WEEKLY TD Last administered on 02/08/19at 18:13; Start 02/08/19 at 18:00 Metoprolol Tartrate (Lopressor Vial) 5 mg Q6HRS IVP Last administered on 02/09/19at 12:51; Start 02/09/19 at 00:15; Stop 02/09/19 at 12:59; Status DC Influenza Virus Vaccine Quadrival (Afluria Quad 2019-20 (3yr Up) Syringe) 0.5 ml ONCE ONCE VAX IM ; Start 02/09/19 at 09:00; Stop 02/09/19 at 09:01; Status DC Pantoprazole Sodium (PROTONIX VIAL for IV PUSH) 40 mg DAILYAC IVP Last administered on 02/10/19at 10:08; Start 02/09/19 at 11:01; Stop 02/10/19 at 13:05; Status DC Piperacillin Sod/ Tazobactam Sod 3.375 gm/Sodium Chloride 50 ml @ 100 mls/hr Q6HRS IV Last administered on 02/11/19at 05:27; Start 02/09/19 at 12:00 Ondansetron HCl (Zofran) 4 mg PRN Q6HRS PRN IV NAUSEA/VOMITING; Start 02/09/19 at 11:30; Stop 02/09/19 at 11:32; Status DC Prochlorperazine (Compazine) 25 mg PRN Q12HR PRN AR NAUSEA/VOMITING; Start 02/09/19 at 11:30 Famotidine (Pepcid Vial) 20 mg BID IVP ; Start 02/09/19 at 21:00; Stop 02/09/19 at 11:30; Status DC Enoxaparin Sodium (Lovenox 40mg Syringe) 40 mg Q12HR SQ Last administered on 02/11/19at 09:31; Start 02/09/19 at 21:00 Sodium Chloride (Normal Saline Flush) 3 ml QSHIFT PRN IV AFTER MEDS AND BLOOD DRAWS; Start 02/09/19 at 11:30 Sodium Chloride 1,000 ml @ 100 mls/hr Q10H IV Last administered on 02/10/19at 21:17; Start 02/09/19 at 11:25 Bisacodyl (Dulcolax Supp) 10 mg PRN DAILY PRN AR CONSTIPATION; Start 02/09/19 at 11:30 Labetalol HCl (Normodyne Iv Push) 20 mg Q4HRS IVP Last administered on 02/11/19at 09:33; Start 02/09/19 at 13:00 Nicardipine HCl 50 mg/Sodium Chloride 250 ml @ 25 mls/hr CONT PRN IV SEE I/O RECORD Last administered on 02/09/19at 17:42; Start 02/09/19 at 17:15 Morphine Sulfate (Morphine Sulfate) 2 mg PRN Q2HR PRN IV SEVERE PAIN Last administered on 02/11/19at 05:20; Start 02/09/19 at 20:15 Lactobacillus Rhamnosus (Culturelle) 1 cap BID PO ; Start 02/10/19 at 21:00 Aspirin (Children'S Aspirin) 81 mg DAILYWBKFT PO ; Start 02/11/19 at 08:00 Pantoprazole Sodium (PROTONIX VIAL for IV PUSH) 40 mg BIDAC IVP Last administered on 02/11/19at 09:32; Start 02/10/19 at 16:30 Diphenhydramine HCl (Benadryl) 12.5 mg PRN QHS PRN IVP ITCHING Last administered on 02/10/19at 22:09; Start 02/10/19 at 19:45 Phenyleph/Shark Oil/Min Oil/Petrol (Preparation H) 1 kristin PRN QID PRN RC RECTAL PAIN Last administered on 02/10/19at 20:18; Start 02/10/19 at 20:00 Lorazepam (Ativan Inj) 1 mg PRN QHS PRN IVP ANXIETY / AGITATION Last adminis tered on 02/11/19at 00:56; Start 02/11/19 at 01:00 Active Scripts Active Vitamin D3 (Cholecalciferol (Vitamin D3)) 5,000 Unit Capsule 5,000 Unit PO DAILY 30 Days Miralax (Polyethylene Glycol 3350) 17 Gm Powd.pack 1 Packet PO DAILY Lyrica (Pregabalin) 100 Mg Capsule 1 Cap PO BID 30 Days Reported Percocet 7.5-325 Mg Tablet (Oxycodone/Acetaminophen) 1 Each Tablet 2 Tab PO PRN TID PRN Proair Hfa Inhaler (Albuterol Sulfate) 8.5 Gm Hfa.aer.ad 2 Puff INH PRN Q6HRS PRN Amitriptyline Hcl 10 Mg Tablet 6 Tab PO QHS Glimepiride 4 Mg Tablet 1 Tab PO DAILYWBKFT Compazine (Prochlorperazine Maleate) 10 Mg Tablet 10 Mg PO PRN Q8HRS PRN Diclofenac Sodium 75 Mg Tablet.dr 1 Tab PO BID Pravastatin Sodium 40 Mg Tablet 1 Tab PO QHS Clonidine Hcl 0.3 Mg Tablet 1 Tab PO BID Labetalol Hcl 200 Mg Tablet 1 Tab PO BID Vitals/I & O Vital Sign - Last 24 Hours 02/10/19 02/10/19 02/10/19 02/10/19 11:00 11:03 11:46 12:00 Pulse 77 89 Resp 17 18 18 B/P (MAP) 145/81 (102) 140/83 Pulse Ox 99 100 100 O2 Delivery Nasal Cannula Nasal Cannula Room Air O2 Flow Rate 2.0 2.0 2.0 02/10/19 02/10/19 02/10/19 02/10/19 12:00 12:00 13:00 13:07 Temp 98.2 98.2 Pulse 71 78 Resp 15 18 18 B/P (MAP) 129/83 (98) 125/62 (83) Pulse Ox 99 98 99 O2 Delivery Nasal Cannula Nasal Cannula Nasal Cannula Nasal Cannula O2 Flow Rate 2.0 2.0 2.0 2.0 02/10/19 02/10/19 02/10/19 02/10/19 13:46 14:00 15:00 15:07 Pulse 74 76 Resp 18 17 15 18 B/P (MAP) 140/73 (95) 114/62 (79) Pulse Ox 99 98 99 98 O2 Delivery Nasal Cannula Nasal Cannula Nasal Cannula Nasal Cannula O2 Flow Rate 2.0 2.0 2.0 2.0 02/10/19 02/10/19 02/10/19 02/10/19 15:43 16:00 16:00 17:00 Temp 98.3 98.3 Pulse 76 74 Resp 16 14 16 B/P (MAP) 141/79 (99) 146/75 (98) Pulse Ox 98 100 100 O2 Delivery Nasal Cannula Nasal Cannula Nasal Cannula Nasal Cannula O2 Flow Rate 2.0 2.0 2.0 2.0 02/10/19 02/10/19 02/10/19 02/10/19 17:07 17:50 18:00 18:28 Pulse 78 66 Resp 16 19 16 B/P (MAP) 145/72 131/73 (92) Pulse Ox 97 99 99 O2 Delivery Nasal Cannula Nasal Cannula Nasal Cannula O2 Flow Rate 2.0 2.0 2.0 02/10/19 02/10/19 02/10/19 02/10/19 19:00 20:00 20:00 20:00 Temp 99.3 99.3 Pulse 68 72 72 Resp 20 20 B/P (MAP) 128/67 (87) 142/75 142/75 (97) Pulse Ox 100 100 O2 Delivery Nasal Cannula Nasal Cannula Nasal Cannula O2 Flow Rate 2.0 2.0 2.0 02/10/19 02/10/19 02/10/19 02/10/19 21:00 21:17 21:45 22:00 Pulse 88 70 Resp 18 16 18 16 B/P (MAP) 127/72 (90) 121/73 (89) Pulse Ox 100 100 100 99 O2 Delivery Nasal Cannula Nasal Cannula Nasal Cannula Nasal Cannula O2 Flow Rate 2.0 2.0 2.0 2.0 02/10/19 02/10/19 02/10/19 02/10/19 23:00 23:40 23:59 23:59 Temp 99.8 99.8 Pulse 78 85 Resp 20 20 20 B/P (MAP) 133/70 (91) 131/71 (91) Pulse Ox 100 100 100 O2 Delivery Nasal Cannula Nasal Cannula Nasal Cannula Nasal Cannula O2 Flow Rate 2.0 2.0 2.0 2.0 02/11/19 02/11/19 02/11/19 02/11/19 00:00 00:10 01:00 02:00 Pulse 85 73 69 Resp 18 16 16 B/P (MAP) 131/71 140/76 (97) 133/60 (84) Pulse Ox 100 98 99 O2 Delivery Nasal Cannula Nasal Cannula Nasal Cannula O2 Flow Rate 2.0 2.0 2.0 02/11/19 02/11/19 02/11/19 02/11/19 03:00 04:00 04:00 04:00 Temp 98.8 98.8 Pulse 67 68 67 Resp 20 16 B/P (MAP) 159/73 (101) 138/68 138/68 (91) Pulse Ox 100 100 O2 Delivery Nasal Cannula Nasal Cannula Nasal Cannula O2 Flow Rate 2.0 2.0 2.0 02/11/19 02/11/19 02/11/19 02/11/19 05:00 05:20 05:50 06:00 Pulse 85 74 Resp 20 20 16 16 B/P (MAP) 156/87 (110) 113/57 (75) Pulse Ox 100 100 100 100 O2 Delivery Nasal Cannula Nasal Cannula Nasal Cannula Nasal Cannula O2 Flow Rate 2.0 2.0 2.0 2.0 02/11/19 02/11/19 02/11/19 02/11/19 07:00 08:00 08:00 09:00 Temp 99.1 99.1 Pulse 87 74 76 Resp 20 18 17 B/P (MAP) 172/86 (114) 138/67 (90) 168/89 (115) Pulse Ox 100 100 100 O2 Delivery Nasal Cannula Nasal Cannula Nasal Cannula Nasal Cannula O2 Flow Rate 2.0 2.0 2.0 2.0 02/11/19 02/11/19 09:33 10:00 Pulse 83 67 Resp 16 B/P (MAP) 168/89 145/82 (103) Pulse Ox 100 O2 Delivery Nasal Cannula O2 Flow Rate 2.0 Intake and Output 02/10/19 02/10/19 02/11/19 14:59 22:59 06:59 Intake Total 50 ml 50 ml 1339 ml Output Total 385 ml 185 ml 320 ml Balance -335 ml -135 ml 1019 ml Problem List Problems Medical Problems: (1) Hypercalcemia Status: Acute (2) Low back pain Status: Acute (3) Nausea and vomiting Status: Acute (4) Uncontrolled diabetes mellitus Status: Acute Assessment N/V- with GERD, Hg stable, medical therapy with GERD, await disposition plans VALERIANO BILLINGS MD Feb 11, 2019 10:26
[2019-02-11] MEDS: IV NORMAL SALINE 1000ML BAG 1,000 ML IV SCH ×2 (13:25→23:25)
[2019-02-11] MEDS: ASPIRIN CHEWABLE 81 MG TABLET. PO SCH (13:26)
[2019-02-11] MEDS: amLODIPine BESYLATE 5 MG TABLET PO SCH (13:27)
[2019-02-11] MEDS: LACTOBACILLUS RHAMNOSUS GG 1 CAPSULE. PO SCH ×2 (13:27→21:08)
--- NOTE | 2019-02-11 14:07 | PDOC ---
PROGRESS NOTES Assessment Assessment Coded stroke on the floor. Acute mental status changes. Weakness, not moving UE and LE. Not able to talk. Decreased response. Metabolic encephalopathy. DM. Hyperglycemia. Diabetic neuropathy. HTN. Hypercalcemia. Hyperparathyroidism likely. Vit D deficiency. Old bilateral cerebellar infarcts. Obesity. No evidence of acute CVA this time after neurological evaluation. RECOMMENDATIONS/PLAN: BP control. Treat medical diseases. ASA 81 mg daily. EEG. Not able to perform on her after several attempts due to her hair condition. OT/PT. Discussed with her daughter at bedside in ICU on 02/11/19. Brain MRI on 02/09/19: No acute findings. History of Present Illness This is a 73-year-old AA female patient with PMHx including Arthritis, Asthma, Diabetes-Type II, Heart Disease, Hypertension, TIA, neuropathy was seen multiple times recently in ED for falls and chronic bilateral LE weakness. She was admitted this time on 02/07/19 with complaints of vomiting blood as having 4 episodes of coffee-ground material. On 02/09/19, she was reportedly to have acute MS changes, unresponsiveness, not talking nor moves her extremities, so neurology was called for consultation for coded stroke. Acute stroke was ruled out on the same day of code. Past Medical History Cardiovascular: HTN Musculoskeletal: low back pain. Rheumatologic: Rheumatoid arthritis Endocrine: Diabetes PAST SURGERY HISTORY: No major surgery recently. ALLERGY: NKDA MEDICATIONS: Refer to [facility] FAMILY HISTORY: Non contributory. SOCIAL HISTORY: Lives in detention. Denies current smoking, drinking, and illicit drug use. REVIEW OF SYSTEMS: Constitutional: Obesity. Head: No traumatic brain or head injury. Skin: No edema, or rash. Ear: No infection. Eyes: No vision loss or color blindness. Nose: No bleeding or purulent discharges. Hearing: No hearing decrease. Neck: No injury. Breast: No history of cancer, masses,or discharges. Cardiac: HTN. Pulmonary: No COPD. GI: No GI ulcer, GI bleeding. Urinary/genital: UTI. Endocrinologic: Diabetes Mellitus, obesity. Skeletomuscular: Generalized weakness. Neurological: see HP. Psychiatric: Denies drug use/abuse. Otherwise, not [id number] review of systems. PHYSICAL EXAMINATION: General appearance is in acute distress. HEENT: Normocephalic and nontraumatic. Eyes, nose, ears, and throat are unremarkable. Neck is supple. No lymphadenopathy. No crepitus. Cardiovascular: S1, S2, regular rate and rhythm. Pulmonary: relative clear to auscultation bilaterally. Abdomen: Bowel sounds are positive. Extremities: No rash, lesions, or edema. No restriction of range of motion NEUROLOGICAL EXAMINATION: Sleepiness, but arousable. Sitting in chair. Not oriented to time, place but knew person. PERRL. EOMI. CN: no focal findings. Muscle tone: within normal. Muscle strength: 4 UE, 4- LE DTR: 1-2. Plantar reflex: Flexor response bilaterally Gait: not examined in chair. Sensory exam: Rosalinda cute finding. No cerebellar signs elicited. F-T-N test not performed due to not follow commands . Objective Objective Vital Signs Date Time Temp Pulse Resp B/P (MAP) Pulse Ox O2 Delivery O2 Flow Rate FiO2 02/11/19 13:28 100 Nasal Cannula 2.0 02/11/19 13:27 178/89 02/11/19 12:00 98.6 66 16 98.6 Intake and Output 02/11/19 07:00 Intake Total 1439 ml Output Total 890 ml Balance 549 ml IV Total 1439 ml Output Urine Total 890 ml # Bowel Movements 3 Vitals Signs Vitals VS - Last 72 Hours, by Label Date Time Temp Pulse Resp B/P (MAP) Pulse Ox O2 Delivery O2 Flow Rate FiO2 02/11/19 13:28 100 Nasal Cannula 2.0 02/11/19 13:27 178/89 02/11/19 12:00 98.6 66 16 158/88 (111) 100 Nasal Cannula 2.0 98.6 02/11/19 10:53 100 Nasal Cannula 2.0 02/11/19 10:00 67 16 145/82 (103) 100 Nasal Cannula 2.0 02/11/19 09:33 83 168/89 02/11/19 09:00 76 17 168/89 (115) 100 Nasal Cannula 2.0 02/11/19 08:00 Nasal Cannula 2.0 02/11/19 08:00 99.1 74 18 138/67 (90) 100 Nasal Cannula 2.0 99.1 02/11/19 07:00 87 20 172/86 (114) 100 Nasal Cannula 2.0 02/11/19 06:00 74 16 113/57 (75) 100 Nasal Cannula 2.0 02/11/19 05:50 16 100 Nasal Cannula 2.0 02/11/19 05:20 20 100 Nasal Cannula 2.0 02/11/19 05:00 85 20 156/87 (110) 100 Nasal Cannula 2.0 02/11/19 04:00 98.8 67 16 138/68 (91) 100 Nasal Cannula 2.0 98.8 02/11/19 04:00 68 138/68 02/11/19 04:00 Nasal Cannula 2.0 02/11/19 03:00 67 20 159/73 (101) 100 Nasal Cannula 2.0 02/11/19 02:00 69 16 133/60 (84) 99 Nasal Cannula 2.0 02/11/19 01:00 73 16 140/76 (97) 98 Nasal Cannula 2.0 02/11/19 00:10 18 100 Nasal Cannula 2.0 02/11/19 00:00 85 131/71 02/10/19 23:59 99.8 85 20 131/71 (91) 100 Nasal Cannula 2.0 99.8 02/10/19 23:59 Nasal Cannula 2.0 02/10/19 23:40 20 100 Nasal Cannula 2.0 02/10/19 23:00 78 20 133/70 (91) 100 Nasal Cannula 2.0 02/10/19 22:00 70 16 121/73 (89) 99 Nasal Cannula 2.0 02/10/19 21:45 18 100 Nasal Cannula 2.0 02/10/19 21:17 16 100 Nasal Cannula 2.0 02/10/19 21:00 88 18 127/72 (90) 100 Nasal Cannula 2.0 02/10/19 20:00 Nasal Cannula 2.0 02/10/19 20:00 99.3 72 20 142/75 (97) 100 Nasal Cannula 2.0 99.3 02/10/19 20:00 72 142/75 02/10/19 19:00 68 20 128/67 (87) 100 Nasal Cannula 2.0 02/10/19 18:28 16 99 Nasal Cannula 2.0 02/10/19 18:00 66 19 131/73 (92) 99 Nasal Cannula 2.0 02/10/19 17:50 16 97 Nasal Cannula 2.0 02/10/19 17:07 78 145/72 02/10/19 17:00 98.3 74 16 146/75 (98) 100 Nasal Cannula 2.0 98.3 02/10/19 16:00 76 14 141/79 (99) 100 Nasal Cannula 2.0 02/10/19 16:00 Nasal Cannula 2.0 02/10/19 15:43 16 98 Nasal Cannula 2.0 02/10/19 15:07 18 98 Nasal Cannula 2.0 02/10/19 15:00 76 15 114/62 (79) 99 Nasal Cannula 2.0 02/10/19 14:00 74 17 140/73 (95) 98 Nasal Cannula 2.0 02/10/19 13:46 18 99 Nasal Cannula 2.0 02/10/19 13:07 18 99 Nasal Cannula 2.0 02/10/19 13:00 78 18 125/62 (83) 98 Nasal Cannula 2.0 02/10/19 12:00 98.2 71 15 129/83 (98) 99 Nasal Cannula 2.0 98.2 02/10/19 12:00 Nasal Cannula 2.0 02/10/19 12:00 89 140/83 02/10/19 11:46 18 100 Room Air 2.0 02/10/19 11:03 18 100 Nasal Cannula 2.0 02/10/19 11:00 77 17 145/81 (102) 99 Nasal Cannula 2.0 02/10/19 10:15 72 21 115/75 (88) 98 Nasal Cannula 2.0 02/10/19 10:09 89 140/83 02/10/19 10:00 90 19 173/86 (115) 97 Nasal Cannula 2.0 02/10/19 09:00 88 18 151/88 (109) 99 Nasal Cannula 2.0 02/10/19 08:00 Room Air 02/10/19 08:00 98.3 90 16 150/90 (110) 99 Nasal Cannula 2.0 98.3 02/10/19 07:15 84 18 144/82 (102) 100 Nasal Cannula 2.0 02/10/19 07:00 91 16 179/91 (120) 100 Nasal Cannula 2.0 Laboratory Laboratory Laboratory Tests Test 02/10/19 21:22 02/11/19 09:15 Glucose (Fingerstick) 196 mg/dL (70-99) White Blood Count 6.7 x10^3/uL (4.0-11.0) Red Blood Count 3.94 x10^6/uL (3.50-5.40) Hemoglobin 12.4 g/dL (12.0-15.5) Hematocrit 37.7 % (36.0-47.0) Mean Corpuscular Volume 96 fL (79-100) Mean Corpuscular Hemoglobin 32 pg (25-35) Mean Corpuscular Hemoglobin Concent 33 g/dL (31-37) Red Cell Distribution Width 13.2 % (11.5-14.5) Platelet Count 204 x10^3/uL (140-400) Sodium Level 144 mmol/L (136-145) Potassium Level 3.6 mmol/L (3.5-5.1) Chloride Level 109 mmol/L (98-107) Carbon Dioxide Level 29 mmol/L (21-32) Anion Gap 6 (6-14) Blood Urea Nitrogen 10 mg/dL (7-20) Creatinine 0.8 mg/dL (0.6-1.0) Estimated GFR (Cockcroft-Gault) 84.6 BUN/Creatinine Ratio 13 (6-20) Glucose Level 167 mg/dL (70-99) Calcium Level 10.1 mg/dL (8.5-10.1) Total Bilirubin 0.5 mg/dL (0.2-1.0) Aspartate Amino Transf (AST/SGOT) 13 U/L (15-37) Alanine Aminotransferase (ALT/SGPT) 12 U/L (14-59) Alkaline Phosphatase 74 U/L (46-116) Total Protein 6.9 g/dL (6.4-8.2) Albumin 3.0 g/dL (3.4-5.0) Albumin/Globulin Ratio 0.8 (1.0-1.7) Microbiology 02/09/19 Blood Culture - Preliminary, Resulted NO GROWTH AFTER 2 DAYS Medication Medications Current Medications Aspirin (Children'S Aspirin) 81 mg [id number] PO Last administered on 02/11/19at 13:26; Start 02/11/19 at 08:00 Diphenhydramine HCl (Benadryl) 12.5 mg PRN QHS PRN IVP ITCHING Last administered on 02/10/19at 22:09; Start 02/10/19 at 19:45 Lactobacillus Rhamnosus (Culturelle) 1 cap BID PO Last administered on 02/11/19 13:27; Start 02/10/19 at 21:00 Lorazepam (Ativan Inj) 1 mg PRN QHS PRN IVP ANXIETY / AGITATION Last administered on 02/11/19 00:56; Start 02/11/19 at 01:00 Pantoprazole Sodium (PROTONIX VIAL for IV PUSH) 40 mg BIDAC IVP Last administered on 02/11/19 09:32; Start 02/10/19 at 16:30 Phenyleph/Shark Oil/Min Oil/Petrol (Preparation H) 1 kristin PRN QID PRN RC RECTAL PAIN Last administered on 02/10/19 20:18; Start 02/10/19 at 20:00 Comment Review of Relevant I have reviewed the following items jorge luis (where applicable) has been applied. VLAD HOPKINS MD Feb 11, 2019 14:06
--- NOTE | 2019-02-11 15:29 | PDOC ---
DINAH LENNON SUPERVISOR ENDLESS TRACK VEHICLE 02/11/19 1529: CARDIO Progress Notes Date and Time Date of Service 02/11/19 Time of Evaluation 1140 Subjective Subjective: No Chest Pain, No shortness of breath, No Palpitations, Other (speech and strength improving ) Vitals Vitals Vital Signs Date Time Temp Pulse Resp B/P (MAP) Pulse Ox O2 Delivery O2 Flow Rate FiO2 02/11/19 13:28 100 Nasal Cannula 2.0 02/11/19 13:27 178/89 02/11/19 12:00 98.6 66 16 98.6 Weight Weight [ ] Input and Output Intake and Output Intake and Output 02/11/19 07:00 Intake Total 1439 ml Output Total 890 ml Balance 549 ml IV Total 1439 ml Output Urine Total 890 ml # Bowel Movements 3 Laboratory Labs Laboratory Tests Test 02/10/19 21:22 02/11/19 09:15 02/11/19 14:18 Glucose (Fingerstick) 196 mg/dL (70-99) 189 mg/dL (70-99) White Blood Count 6.7 x10^3/uL (4.0-11.0) Red Blood Count 3.94 x10^6/uL (3.50-5.40) Hemoglobin 12.4 g/dL (12.0-15.5) Hematocrit 37.7 % (36.0-47.0) Mean Corpuscular Volume 96 fL (79-100) Mean Corpuscular Hemoglobin 32 pg (25-35) Mean Corpuscular Hemoglobin Concent 33 g/dL (31-37) Red Cell Distribution Width 13.2 % (11.5-14.5) Platelet Count 204 x10^3/uL (140-400) Sodium Level 144 mmol/L (136-145) Potassium Level 3.6 mmol/L (3.5-5.1) Chloride Level 109 mmol/L (98-107) Carbon Dioxide Level 29 mmol/L (21-32) Anion Gap 6 (6-14) Blood Urea Nitrogen 10 mg/dL (7-20) Creatinine 0.8 mg/dL (0.6-1.0) Estimated GFR (Cockcroft-Gault) 84.6 BUN/Creatinine Ratio 13 (6-20) Glucose Level 167 mg/dL (70-99) Calcium Level 10.1 mg/dL (8.5-10.1) Total Bilirubin 0.5 mg/dL (0.2-1.0) Aspartate Amino Transf (AST/SGOT) 13 U/L (15-37) Alanine Aminotransferase (ALT/SGPT) 12 U/L (14-59) Alkaline Phosphatase 74 U/L (46-116) Total Protein 6.9 g/dL (6.4-8.2) Albumin 3.0 g/dL (3.4-5.0) Albumin/Globulin Ratio 0.8 (1.0-1.7) Microbiology Micro Microbiology 02/09/19 Blood Culture - Preliminary, Resulted NO GROWTH AFTER 2 DAYS 02/08/19 Urine Culture - Final, Complete 02/08/19 Urine Culture Result 1 (REECE) - Final, Complete 02/08/19 Antimicrobic Susceptibility - Final, Complete Physical Exam HEENT: Neck Supple W Full Motion Chest: Symmetric LUNGS: Clear to Auscultation, Other (diminished bases) Heart: S1S2, RRR Abdomen: Soft N/T Extremities: Other (trace bilateral LE edema ) Neurology: alert, follow commands, other (expressive aphasia improved from y ) Assessment Assessment 1. Strokelike symptoms: Generalized weakness and expressive aphasia . CT and MRI negative for acute changes; acute stroke ruled out. 2. Dysphagia; okay for honey thick liquids 2. Accelerated HTN; labile 3. Metabolic encephalopathy 4. H/o CVA 5. Hyperlipidemia 6. DM2 7. Erosive esophagitis: per EGD Recommendations Clonidine patch Resume oral antihypertensive therapy Hydralazine IV PRN Secondary prevention measures. Supportive care. Monitor rhythm; had burst of SVT, but no evidence of AFIB thus far. JEFF WARNER MD 02/11/19 2158: CARDIO Progress Notes Plan Plan Pt. seen and examined. Agree with above LOOM CHECKER note. Significant improvement in mentation and speech over the last 24 hours. Cardiac ramey she is stable. BP is better controlled. Echo from last month is unremarkable. MRI/CT w/u thus far is unrevealing. Dx is quite perplexing. Less likely to be a TIA given such profound aphasia and neurologic deficits. ? metabolic encephalopathy from HTN? Supportive care from CV standpoint. Continue uptitration of meds. DINAH LENNON APRN Feb 11, 2019 15:29 JEFF WARNER MD Feb 11, 2019 21:58
--- NOTE | 2019-02-11 15:31 | NUR ---
SS following up with discharge planning. SS met with pt and pt's daughter in room. Pt alert and wanting to complete DPOA. Pt stated that she wanted her daughter, Jolanta, to be POA. Healthcare POA completed. SS discussed discharge planning and fdc unit as recommended by PT/OT. Pt's daughter requested that referral be phoned and faxed to [facility], ; fax [phone]. SS phoned and faxed referral to [facility]. SS will await acceptance decision and insurance determination and will proceed accordingly with discharge planning.
--- NOTE | 2019-02-11 15:40 | PDOC2 ---
PALLIATIVE CARE Palliative Care Note Palliative Care Patient seen at 1300. Sleeping soundly. has periods where she is less alert. Met with Jolanta, daughter [phone]. She is the primary sportspersons; pt. has 3 sons and one other daughter. no spouse. Patient lives at [facility]. Reviewed medical condition; TIA, arthritis, asthma, DM2, HTN, Erosive esophagitis, Acid Reflex. Sepsis Daughter sees her less responsive today than yesterday. Patient has never discussed what she would want if she became seriously ill. Discussed Code Status; Daughter requests Full Code. Reviewed risks and benefits of compressions and long-term ventilator Discussed options for care. Daughter would like Full [facility]ressive Care "Always been a fighter" She would not want her mother in a skilled nursing for long period of time. Rehabilitation at [facility] would be acceptable. Above reviewed with Bria ALCALA and FIORELLA Perry RN Feb 11, 2019 15:40
[2019-02-11] MEDS: hydrALAZINE 20 MG/ML VIAL. IVP PRN (16:00)
[2019-02-11] MEDS: ATORVASTATIN CALCIUM 10 MG TABLET. PO SCH (21:08)
[2019-02-11] MEDS: LABETALOL HCL 200 MG TABLET PO SCH (21:08)
[2019-02-12] MEDS: HYDROmorphone 2 MG/ML VIAL IV PRN ×3 (03:03→15:00)
[2019-02-12] MEDS: ONDANSETRON PF 4 MG/2 ML VIAL. IVP PRN ×3 (03:07→16:00)
[2019-02-12 03:20] VITALS: BP 160/92
[2019-02-12] MEDS: PIPERACILLIN/TAZOBACTAM 3.375 GM in IV NORMAL SALINE 50ML 50 ML IV SCH ×5 (05:48→17:46)
[2019-02-12 07:15] VITALS: BP 117/57
--- NOTE | 2019-02-12 08:02 | PDOC ---
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 Remote lacunar infarct is noted in the right putamen. Low-attenuation in the periventricular white matter is suggestive of chronic small vessel ischemic changes. Hematemesis - on ASA only, just had recently EGD. consult GI. Multiple falls - was just discharged with home health previously, to ED multiple visits for falls. 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 - no sonographic evidence of deep venous thrombosis involving the visualized deep venous structures of either lower extremity. Failure to thrive MILD HYPERNATREMIA - hypovolemic VOLUME DEPLETED, dehydration Gait instability Multilevel degenerative change throughout the lumbar spine and lower thoracic spine, resulting in stenosis - Grade 1 anterolisthesis of L5 on S1 and retrolisthesis of L2 on L3. ELEVATED ESR Bilateral leg weakness Anemia - likely of chronic disease UTI abdominal pain, slow to improve PPX - PPI, SCDs FULL CODE inpatient for UGIB 27 min pt exam, chart review, > 50% of time spent with exam, chart review, pt care coordination History of Present Illness History of Present Illness 02/11/19 Pt seen and examined in ICU Pt seen sitting up with the nurses Pt passed swallow test with speech therapy and has been started on honey thick diet Alert, oriented Hopefully will move patient up to a med floor today Charts and labs reviewed DW RN 02/10/19 Pt seen and examined in the ICU Was sitting upright in chair Accompanied by family Failed swallow test with speech pathology Erosive esophagitis and reflux confirmed by pathology report MRI showed small infarcts and chronic vessel disease DW RN Charts and labs reviewed Vitals Vitals Vital Signs Date Time Temp Pulse Resp B/P (MAP) Pulse Ox O2 Delivery O2 Flow Rate FiO2 02/12/19 07:15 96.8 82 20 117/57 (77) 93 Room Air 96.8 02/11/19 16:45 2.0 Physical Exam Physical Exam NEW RIGHT SIDED WEAKNESS 02/10 General: Alert, Cooperative, No acute distress Heart: Regular rate (SR), Normal S1, Normal S2, No murmurs Lungs: Clear Abdomen: Normal bowel sounds, Soft, No tenderness, Other (obese) Extremities: No clubbing, No cyanosis, No edema Skin: No breakdown, No significant lesion Labs LABS EX: F EXAM STATUS: ADM IN ORD. PHYSICIAN: VLAD HOPKINS MD REASON: Code stroke, IF CRITICAL CALL REPORT TO [phone] PROCEDURE: BRAIN W/O CONTRAST EXAM: Brain MRI without contrast. HISTORY: Stroke. TECHNIQUE: Multiplanar, multisequence magnetic resonance imaging of the brain was performed without contrast. COMPARISON: CT obtained on the same date. FINDINGS: There is no restricted diffusion to suggest acute or subacute infarction. There is no susceptibility effect to suggest hemorrhage. There is no mass effect or midline shift. There is no hydrocephalus. There are focal areas of encephalomalacia within the left greater than right cerebellar hemispheres due to chronic infarction. There are nonspecific focal areas of T2 such FLAIR hyperintensity within the cerebral white matter and kenneth. The orbits are unremarkable. There are maxillary sinus mucous retention cysts superimposed on paranasal sinus because of thickening. There is fluid within the right mastoid air cells. There are normal flow voids within the cerebral vessels. No suspicious calvarial lesion is seen. There is diffuse calvarial thickening. IMPRESSION: 1. No acute intracranial finding. 2. Chronic infarcts within the left greater than right cerebellar hemispheres. 3. Scattered areas of white matter and pontine signal change likely due to chronic small vessel disease. Electronically signed by: Pina Cornejo MD (02/09/2019 12:45 PM) [place] [id number] DICTATED and SIGNED BY: PINA CORNEJO MD SEX: F EXAM STATUS: ADM IN ORD. PHYSICIAN: NORRIS PAULINO MD REASON: Abdomen pain PROCEDURE: CT ABDOMEN PELVIS WO CONTRAST CT scan of the abdomen and pelvis without contrast 02/07/2019 CLINICAL HISTORY: Abdominal pain. TECHNIQUE: Unenhanced, contiguous, 2 mm axial sections were obtained through the abdomen and pelvis. One or more of the following individualized dose reduction techniques were utilized for this study: 1. Automated exposure control. 2. Adjustment of the mA and/or kV according to patient size. 3. Use of iterative reconstruction technique. FINDINGS: Images through the lung bases demonstrate mild cardiomegaly. Minimal dependent subsegmental atelectasis is seen bilaterally. The liver, spleen, pancreas, adrenal glands and left kidney are within normal limits. A 4.4 cm rounded low-attenuation lesion is seen involving the superior/midpole of the right kidney. This likely represents a cyst. Atherosclerotic calcification of the abdominal aorta is seen. The abdominal aorta tapers normally. Surgical clips are seen within the gallbladder fossa consistent with a cholecystectomy. Air and stool are seen throughout the colon. The appendix is well-visualized and is within normal limits. No free fluid or free air is seen within the abdomen. There is no evidence of bowel obstruction. Images through the pelvis demonstrate the urinary bladder distended with urine. Calcifications are seen within the pelvis consistent with phleboliths. No free fluid is seen. Very mild S-shaped curvature of the thoracolumbar spine is seen. Degenerative changes are seen involving the thoracic spine and lumbar spine along with both hips. IMPRESSION: No acute abnormality is seen. Electronically signed by: Rico Gillis MD (02/07/2019 9:12 AM) [facility] Laboratory Tests Test 02/11/19 09:15 02/11/19 14:18 02/11/19 17:11 02/11/19 20:13 White Blood Count 6.7 x10^3/uL (4.0-11.0) Red Blood Count 3.94 x10^6/uL (3.50-5.40) Hemoglobin 12.4 g/dL (12.0-15.5) Hematocrit 37.7 % (36.0-47.0) Mean Corpuscular Volume 96 fL (79-100) Mean Corpuscular Hemoglobin 32 pg (25-35) Mean Corpuscular Hemoglobin Concent 33 g/dL (31-37) Red Cell Distribution Width 13.2 % (11.5-14.5) Platelet Count 204 x10^3/uL (140-400) Sodium Level 144 mmol/L (136-145) Potassium Level 3.6 mmol/L (3.5-5.1) Chloride Level 109 mmol/L (98-107) Carbon Dioxide Level 29 mmol/L (21-32) Anion Gap 6 (6-14) Blood Urea Nitrogen 10 mg/dL (7-20) Creatinine 0.8 mg/dL (0.6-1.0) Estimated GFR (Cockcroft-Gault) 84.6 BUN/Creatinine Ratio 13 (6-20) Glucose Level 167 mg/dL (70-99) Calcium Level 10.1 mg/dL (8.5-10.1) Total Bilirubin 0.5 mg/dL (0.2-1.0) Aspartate Amino Transf (AST/SGOT) 13 U/L (15-37) Alanine Aminotransferase (ALT/SGPT) 12 U/L (14-59) Alkaline Phosphatase 74 U/L (46-116) Total Protein 6.9 g/dL (6.4-8.2) Albumin 3.0 g/dL (3.4-5.0) Albumin/Globulin Ratio 0.8 (1.0-1.7) Glucose (Fingerstick) 189 mg/dL (70-99) 176 mg/dL (70-99) 168 mg/dL (70-99) Assessment and Plan Assessmemt and Plan Problems Medical Problems: (1) Hypercalcemia Status: Acute (2) Low back pain Status: Acute (3) Nausea and vomiting Status: Acute (4) Uncontrolled diabetes mellitus Status: Acute Comment Review of Relevant I have reviewed the following items jorge luis (where applicable) has been applied. Labs Laboratory Tests Test 02/10/19 21:22 02/11/19 09:15 02/11/19 14:18 02/11/19 17:11 Glucose (Fingerstick) 196 mg/dL (70-99) 189 mg/dL (70-99) 176 mg/dL (70-99) White Blood Count 6.7 x10^3/uL (4.0-11.0) Red Blood Count 3.94 x10^6/uL (3.50-5.40) Hemoglobin 12.4 g/dL (12.0-15.5) Hematocrit 37.7 % (36.0-47.0) Mean Corpuscular Volume 96 fL (79-100) Mean Corpuscular Hemoglobin 32 pg (25-35) Mean Corpuscular Hemoglobin Concent 33 g/dL (31-37) Red Cell Distribution Width 13.2 % (11.5-14.5) Platelet Count 204 x10^3/uL (140-400) Sodium Level 144 mmol/L (136-145) Potassium Level 3.6 mmol/L (3.5-5.1) Chloride Level 109 mmol/L (98-107) Carbon Dioxide Level 29 mmol/L (21-32) Anion Gap 6 (6-14) Blood Urea Nitrogen 10 mg/dL (7-20) Creatinine 0.8 mg/dL (0.6-1.0) Estimated GFR (Cockcroft-Gault) 84.6 BUN/Creatinine Ratio 13 (6-20) Glucose Level 167 mg/dL (70-99) Calcium Level 10.1 mg/dL (8.5-10.1) Total Bilirubin 0.5 mg/dL (0.2-1.0) Aspartate Amino Transf (AST/SGOT) 13 U/L (15-37) Alanine Aminotransferase (ALT/SGPT) 12 U/L (14-59) Alkaline Phosphatase 74 U/L (46-116) Total Protein 6.9 g/dL (6.4-8.2) Albumin 3.0 g/dL (3.4-5.0) Albumin/Globulin Ratio 0.8 (1.0-1.7) Test 02/11/19 20:13 Glucose (Fingerstick) 168 mg/dL (70-99) Laboratory Tests Test 02/11/19 09:15 02/11/19 14:18 02/11/19 17:11 02/11/19 20:13 White Blood Count 6.7 x10^3/uL (4.0-11.0) Red Blood Count 3.94 x10^6/uL (3.50-5.40) Hemoglobin 12.4 g/dL (12.0-15.5) Hematocrit 37.7 % (36.0-47.0) Mean Corpuscular Volume 96 fL (79-100) Mean Corpuscular Hemoglobin 32 pg (25-35) Mean Corpuscular Hemoglobin Concent 33 g/dL (31-37) Red Cell Distribution Width 13.2 % (11.5-14.5) Platelet Count 204 x10^3/uL (140-400) Sodium Level 144 mmol/L (136-145) Potassium Level 3.6 mmol/L (3.5-5.1) Chloride Level 109 mmol/L (98-107) Carbon Dioxide Level 29 mmol/L (21-32) Anion Gap 6 (6-14) Blood Urea Nitrogen 10 mg/dL (7-20) Creatinine 0.8 mg/dL (0.6-1.0) Estimated GFR (Cockcroft-Gault) 84.6 BUN/Creatinine Ratio 13 (6-20) Glucose Level 167 mg/dL (70-99) Calcium Level 10.1 mg/dL (8.5-10.1) Total Bilirubin 0.5 mg/dL (0.2-1.0) Aspartate Amino Transf (AST/SGOT) 13 U/L (15-37) Alanine Aminotransferase (ALT/SGPT) 12 U/L (14-59) Alkaline Phosphatase 74 U/L (46-116) Total Protein 6.9 g/dL (6.4-8.2) Albumin 3.0 g/dL (3.4-5.0) Albumin/Globulin Ratio 0.8 (1.0-1.7) Glucose (Fingerstick) 189 mg/dL (70-99) 176 mg/dL (70-99) 168 mg/dL (70-99) Microbiology 02/09/19 Blood Culture - Preliminary, Resulted NO GROWTH AFTER 2 DAYS 02/08/19 Urine Culture - Final, Complete 02/08/19 Urine Culture Result 1 (REECE) - Final, Complete 02/08/19 Antimicrobic Susceptibility - Final, Complete Medications Current Medications Sodium Chloride 1,000 ml @ 1,000 mls/hr 1X ONCE IV Last administered on 02/07/19at 07:45; Start 02/07/19 at 06:30; Stop 02/07/19 at 07:29; Status DC Pantoprazole Sodium (PROTONIX VIAL for IV PUSH) 40 mg 1X ONCE IVP Last administered on 02/07/19at 07:42; Start 02/07/19 at 06:30; Stop 02/07/19 at 06:31; Status DC Albuterol/ Ipratropium (Duoneb) 3 ml 1X ONCE NEB Last administered on 02/07/19at 07:43; Start 02/07/19 at 07:30; Stop 02/07/19 at 07:31; Status DC Fentanyl Citrate (Fentanyl 2ml Vial) 50 mcg 1X ONCE IVP Last administered on 02/07/19 08:01; Start 02/07/19 at 08:00; Stop 02/07/19 at 08:01; Status DC Ondansetron HCl (Zofran) 4 mg 1X ONCE IV Last administered on 02/07/19 08:00; Start 02/07/19 at 08:00; Stop 02/07/19 at 08:01; Status DC Fentanyl Citrate (Fentanyl 2ml Vial) 50 mcg 1X ONCE IVP Last administered on 02/07/19 08:40; Start 02/07/19 at 08:15; Stop 02/07/19 at 08:24; Status DC Ondansetron HCl (Zofran) 4 mg PRN Q8HRS PRN IV NAUSEA/VOMITING Last administered on 02/08/19 07:57; Start 02/07/19 at 08:15; Stop 02/08/19 at 08:14; Status DC Sodium Chloride 1,000 ml @ 150 mls/hr Q6H40M IV Last administered on 02/08/19 07:07; Start 02/07/19 at 08:09; Stop 02/08/19 at 08:08; Status DC Morphine Sulfate (Morphine Sulfate) 4 mg 1X ONCE IM Last administered on 02/07/19 08:53; Start 02/07/19 at 08:45; Stop 02/07/19 at 08:48; Status DC Prochlorperazine Edisylate (Compazine) 5 mg 1X ONCE IM Last administered on 02/07/19 08:52; Start 02/07/19 at 08:45; Stop 02/07/19 at 08:48; Status DC Amlodipine Besylate (Norvasc) 5 mg DAILY PO Last administered on 02/11/19 13:27; Start 02/07/19 at 10:00 Aspirin (Children'S Aspirin) 81 mg DAILYWBKFT PO Last administered on 02/07/19at 10:45; Start 02/07/19 at 10:00; Stop 02/07/19 at 15:05; Status DC Tramadol HCl (Ultram) 50 mg PRN Q6HRS PRN PO MILD TO MODERATE PAIN Last administered on 02/07/19 18:34; Start 02/07/19 at 11:00 Hydromorphone HCl (Dilaudid) 1 mg PRN Q4HRS PRN IV MODERATE TO SEVERE PAIN Last administered on 02/12/19at 03:03; Start 02/07/19 at 11:00 Hydralazine HCl (Apresoline Inj) 10 mg PRN Q4HRS PRN IVP ELEVATED BP, SEE COMMENTS Last administered on 02/11/19at 16:00; Start 02/07/19 at 15:15 Ondansetron HCl (Zofran) 4 mg PRN Q6HRS PRN IVP NAUSEA/VOMITING Last administered on 02/12/19at 03:07; Start 02/07/19 at 15:15 Midazolam HCl (Versed) 2 mg PRN 1X PRN IV PRIOR TO PROCEDURE; Start 02/08/19 at 10:45; Stop 02/09/19 at 10:44; Status DC Fentanyl Citrate (Fentanyl 2ml Vial) 25 mcg PRN Q5MIN PRN IV X 2 DOSES FOR PAIN; Start 02/08/19 at 10:45; Stop 02/09/19 at 10:44; Status DC Fentanyl Citrate (Fentanyl 2ml Vial) 50 mcg PRN Q5MIN PRN IV X 2 DOSES FOR PAIN; Start 02/08/19 at 10:45; Stop 02/09/19 at 10:44; Status DC Ringer's Solution 1,000 ml @ 125 mls/hr Q8H IV Last administered on 02/08/19at 12:10; Start 02/08/19 at 10:39; Stop 02/08/19 at 22:38; Status DC Lidocaine HCl (Xylocaine-Mpf 1% 2ml Vial) 2 ml 1X PRN PRN ID IV START; Start 02/08/19 at 10:45; Stop 02/09/19 at 10:44; Status DC Propofol 20 ml @ As Directed STK-MED ONCE IV ; Start 02/08/19 at 13:16; Stop 02/08/19 at 13:17; Status DC Lidocaine HCl (Lidocaine Pf 2% Vial) 5 ml STK-MED ONCE .ROUTE ; Start 02/08/19 at 13:16; Stop 02/08/19 at 13:17; Status DC Pantoprazole Sodium (Protonix) 40 mg DAILYAC PO Last administered on 02/08/19at 14:41; Start 02/08/19 at 15:00; Stop 02/09/19 at 11:00; Status DC Clonidine HCl (Catapres Tts-2) 1 patch WEEKLY TD ; Start 02/09/19 at 09:00; Stop 02/08/19 at 17:56; Status DC Clonidine HCl (Catapres Tts-2) 1 patch WEEKLY TD Last administered on 02/08/19at 18:13; Start 02/08/19 at 18:00 Metoprolol Tartrate (Lopressor Vial) 5 mg Q6HRS IVP Last administered on 02/09/19at 12:51; Start 02/09/19 at 00:15; Stop 02/09/19 at 12:59; Status DC Influenza Virus Vaccine Quadrival (Afluria Quad 2019-20 (3yr Up) Syringe) 0.5 ml ONCE ONCE VAX IM ; Start 02/09/19 at 09:00; Stop 02/09/19 at 09:01; Status DC Pantoprazole Sodium (PROTONIX VIAL for IV PUSH) 40 mg DAILYAC IVP Last administered on 02/10/19at 10:08; Start 02/09/19 at 11:01; Stop 02/10/19 at 13:05; Status DC Piperacillin Sod/ Tazobactam Sod 3.375 gm/Sodium Chloride 50 ml @ 100 mls/hr Q6HRS IV Last administered on 02/12/19at 05:48; Start 02/09/19 at 12:00 Ondansetron HCl (Zofran) 4 mg PRN Q6HRS PRN IV NAUSEA/VOMITING; Start 02/09/19 at 11:30; Stop 02/09/19 at 11:32; Status DC Prochlorperazine (Compazine) 25 mg PRN Q12HR PRN MT NAUSEA/VOMITING; Start 02/09/19 at 11:30 Famotidine (Pepcid Vial) 20 mg BID IVP ; Start 02/09/19 at 21:00; Stop 02/09/19 at 11:30; Status DC Enoxaparin Sodium (Lovenox 40mg Syringe) 40 mg Q12HR SQ Last administered on 02/11/19at 21:07; Start 02/09/19 at 21:00 Sodium Chloride (Normal Saline Flush) 3 ml QSHIFT PRN IV AFTER MEDS AND BLOOD DRAWS; Start 02/09/19 at 11:30 Sodium Chloride 1,000 ml @ 100 mls/hr Q10H IV Last administered on 02/10/19 21:17; Start 02/09/19 at 11:25 Bisacodyl (Dulcolax Supp) 10 mg PRN DAILY PRN MT CONSTIPATION; Start 02/09/19 at 11:30 Labetalol HCl (Normodyne Iv Push) 20 mg Q4HRS IVP Last administered on 02/11/19 09:33; Start 02/09/19 at 13:00; Stop 02/11/19 at 15:28; Status DC Nicardipine HCl 50 mg/Sodium Chloride 250 ml @ 25 mls/hr CONT PRN IV SEE I/O RECORD Last administered on 02/09/19 17:42; Start 02/09/19 at 17:15; Stop 02/11/19 at 16:50; Status DC Morphine Sulfate (Morphine Sulfate) 2 mg PRN Q2HR PRN IV SEVERE PAIN Last administered on 02/11/19 23:56; Start 02/09/19 at 20:15 Lactobacillus Rhamnosus (Culturelle) 1 cap BID PO Last administered on 02/11/19 21:08; Start 02/10/19 at 21:00 Aspirin (Children'S Aspirin) 81 mg DAILYWBKFT PO Last administered on 02/11/19 13:26; Start 02/11/19 at 08:00 Pantoprazole Sodium (PROTONIX VIAL for IV PUSH) 40 mg BIDAC IVP Last administered on 02/11/19 09:32; Start 02/10/19 at 16:30 Diphenhydramine HCl (Benadryl) 12.5 mg PRN QHS PRN IVP ITCHING Last administered on 02/10/19 22:09; Start 02/10/19 at 19:45 Phenyleph/Shark Oil/Min Oil/Petrol (Preparation H) 1 kristin PRN QID PRN RC RECTAL PAIN Last administered on 02/10/19 20:18; Start 02/10/19 at 20:00 Lorazepam (Ativan Inj) 1 mg PRN QHS PRN IVP ANXIETY / AGITATION Last administered on 02/11/19 00:56; Start 02/11/19 at 01:00 Labetalol HCl (Trandate) 200 mg BID PO Last administered on 02/11/19at 21:08; Start 02/11/19 at 21:00 Atorvastatin Calcium (Lipitor) 10 mg QHS PO Last administered on 02/11/19at 21:08; Start 02/11/19 at 21:00 Active Scripts Active Vitamin D3 (Cholecalciferol (Vitamin D3)) 5,000 Unit Capsule 5,000 Unit PO DAILY 30 Days Miralax (Polyethylene Glycol 3350) 17 Gm Powd.pack 1 Packet PO DAILY Lyrica (Pregabalin) 100 Mg Capsule 1 Cap PO BID 30 Days Reported Percocet 7.5-325 Mg Tablet (Oxycodone/Acetaminophen) 1 Each Tablet 2 Tab PO PRN TID PRN Proair Hfa Inhaler (Albuterol Sulfate) 8.5 Gm Hfa.aer.ad 2 Puff INH PRN Q6HRS PRN Amitriptyline Hcl 10 Mg Tablet 6 Tab PO QHS Glimepiride 4 Mg Tablet 1 Tab PO DAILYWBKFT Compazine (Prochlorperazine Maleate) 10 Mg Tablet 10 Mg PO PRN Q8HRS PRN Diclofenac Sodium 75 Mg Tablet.dr 1 Tab PO BID Pravastatin Sodium 40 Mg Tablet 1 Tab PO QHS Clonidine Hcl 0.3 Mg Tablet 1 Tab PO BID Labetalol Hcl 200 Mg Tablet 1 Tab PO BID Vitals/I & O Vital Sign - Last 24 Hours 02/11/19 02/11/19 02/11/19 02/11/19 09:00 09:33 10:00 10:53 Pulse 76 83 67 Resp 17 16 B/P (MAP) 168/89 (115) 168/89 145/82 (103) Pulse Ox 100 100 100 O2 Delivery Nasal Cannula Nasal Cannula Nasal Cannula O2 Flow Rate 2.0 2.0 2.0 02/11/19 02/11/19 02/11/19 02/11/19 11:23 12:00 13:27 13:28 Temp 98.6 98.6 Pulse 66 Resp 16 B/P (MAP) 158/88 (111) 178/89 Pulse Ox 100 100 O2 Delivery Nasal Cannula Nasal Cannula Nasal Cannula O2 Flow Rate 2.0 2.0 02/11/19 02/11/19 02/11/19 02/11/19 13:58 15:00 16:00 16:30 Temp 98.9 98.9 Pulse 84 76 Resp 20 18 B/P (MAP) 155/100 (118) 155/100 125/68 (87) Pulse Ox 100 100 O2 Delivery Nasal Cannula Nasal Cannula Nasal Cannula O2 Flow Rate 2.0 2.0 02/11/19 02/11/19 02/11/19 02/11/19 16:45 19:01 21:08 23:21 Temp 97.7 99.6 98.8 97.7 99.6 98.8 Pulse 92 99 92 92 Resp 18 20 20 B/P (MAP) 167/86 (113) 148/60 (89) 167/86 145/75 (98) Pulse Ox 98 98 97 O2 Delivery Nasal Cannula Room Air Nasal Cannula O2 Flow Rate 2.0 02/11/19 02/12/19 02/12/19 23:56 03:20 07:15 Temp 98.7 96.8 98.7 96.8 Pulse 98 82 Resp 20 20 B/P (MAP) 160/92 (114) 117/57 (77) Pulse Ox 96 93 O2 Delivery Room Air Room Air Room Air Intake and Output 02/11/19 02/11/19 02/12/19 14:59 22:59 06:59 Intake Total 1100 ml 240 ml Output Total 350 ml 450 ml 1450 ml Balance -350 ml 650 ml -1210 ml BLAYNE MILES MD Feb 12, 2019 08:02
[2019-02-12] MEDS: ENOXAPARIN 40 MG/0.4 ML SYRINGE. SQ SCH ×2 (09:19→20:52)
[2019-02-12] MEDS: PANTOPRAZOLE IV PUSH 40 MG VIAL. IVP SCH ×2 (09:19→17:47)
[2019-02-12] MEDS: LACTOBACILLUS RHAMNOSUS GG 1 CAPSULE. PO SCH ×2 (09:20→20:52)
[2019-02-12] MEDS: ASPIRIN CHEWABLE 81 MG TABLET. PO SCH (09:20)
[2019-02-12] MEDS: amLODIPine BESYLATE 5 MG TABLET PO SCH ×2 (09:20→20:52)
[2019-02-12] MEDS: LABETALOL HCL 200 MG TABLET PO SCH ×2 (09:20→20:51)
[2019-02-12] MEDS: IV NORMAL SALINE 1000ML BAG 1,000 ML IV SCH ×2 (09:26→20:50)
[2019-02-12 11:06] VITALS: BP 138/62
--- NOTE | 2019-02-12 11:26 | PDOC ---
G I PROGRESS NOTE Reason for Follow-up Nausea/abd pain Subjective Tolerating PO Physical Exam Lungs clear CV S1 S2 ABD +BS, soft, nontender Review of Relevant I have reviewed the following items jorge luis (where applicable) has been applied. Labs Laboratory Tests Test 02/10/19 21:22 02/11/19 09:15 02/11/19 14:18 02/11/19 17:11 Glucose (Fingerstick) 196 mg/dL (70-99) 189 mg/dL (70-99) 176 mg/dL (70-99) White Blood Count 6.7 x10^3/uL (4.0-11.0) Red Blood Count 3.94 x10^6/uL (3.50-5.40) Hemoglobin 12.4 g/dL (12.0-15.5) Hematocrit 37.7 % (36.0-47.0) Mean Corpuscular Volume 96 fL (79-100) Mean Corpuscular Hemoglobin 32 pg (25-35) Mean Corpuscular Hemoglobin Concent 33 g/dL (31-37) Red Cell Distribution Width 13.2 % (11.5-14.5) Platelet Count 204 x10^3/uL (140-400) Sodium Level 144 mmol/L (136-145) Potassium Level 3.6 mmol/L (3.5-5.1) Chloride Level 109 mmol/L (98-107) Carbon Dioxide Level 29 mmol/L (21-32) Anion Gap 6 (6-14) Blood Urea Nitrogen 10 mg/dL (7-20) Creatinine 0.8 mg/dL (0.6-1.0) Estimated GFR (Cockcroft-Gault) 84.6 BUN/Creatinine Ratio 13 (6-20) Glucose Level 167 mg/dL (70-99) Calcium Level 10.1 mg/dL (8.5-10.1) Total Bilirubin 0.5 mg/dL (0.2-1.0) Aspartate Amino Transf (AST/SGOT) 13 U/L (15-37) Alanine Aminotransferase (ALT/SGPT) 12 U/L (14-59) Alkaline Phosphatase 74 U/L (46-116) Total Protein 6.9 g/dL (6.4-8.2) Albumin 3.0 g/dL (3.4-5.0) Albumin/Globulin Ratio 0.8 (1.0-1.7) Test 02/11/19 20:13 02/12/19 08:24 Glucose (Fingerstick) 168 mg/dL (70-99) 161 mg/dL (70-99) Laboratory Tests Test 02/11/19 14:18 02/11/19 17:11 02/11/19 20:13 02/12/19 08:24 Glucose (Fingerstick) 189 mg/dL (70-99) 176 mg/dL (70-99) 168 mg/dL (70-99) 161 mg/dL (70-99) Microbiology 02/09/19 Blood Culture - Preliminary, Resulted NO GROWTH AFTER 2 DAYS 02/08/19 Urine Culture - Final, Complete 02/08/19 Urine Culture Result 1 (REECE) - Final, Complete 02/08/19 Antimicrobic Susceptibility - Final, Complete Medications Current Medications Sodium Chloride 1,000 ml @ 1,000 mls/hr 1X ONCE IV Last administered on 02/07/19at 07:45; Start 02/07/19 at 06:30; Stop 02/07/19 at 07:29; Status DC Pantoprazole Sodium (PROTONIX VIAL for IV PUSH) 40 mg 1X ONCE IVP Last administered on 02/07/19at 07:42; Start 02/07/19 at 06:30; Stop 02/07/19 at 06:31; Status DC Albuterol/ Ipratropium (Duoneb) 3 ml 1X ONCE NEB Last administered on 02/07/19at 07:43; Start 02/07/19 at 07:30; Stop 02/07/19 at 07:31; Status DC Fentanyl Citrate (Fentanyl 2ml Vial) 50 mcg 1X ONCE IVP Last administered on 02/07/19at 08:01; Start 02/07/19 at 08:00; Stop 02/07/19 at 08:01; Status DC Ondansetron HCl (Zofran) 4 mg 1X ONCE IV Last administered on 02/07/19at 08:00; Start 02/07/19 at 08:00; Stop 02/07/19 at 08:01; Status DC Fentanyl Citrate (Fentanyl 2ml Vial) 50 mcg 1X ONCE IVP Last administered on 02/07/19at 08:40; Start 02/07/19 at 08:15; Stop 02/07/19 at 08:24; Status DC Ondansetron HCl (Zofran) 4 mg PRN Q8HRS PRN IV NAUSEA/VOMITING Last administered on 02/08/19at 07:57; Start 02/07/19 at 08:15; Stop 02/08/19 at 08:1 4; Status DC Sodium Chloride 1,000 ml @ 150 mls/hr Q6H40M IV Last administered on 02/08/19 07:07; Start 02/07/19 at 08:09; Stop 02/08/19 at 08:08; Status DC Morphine Sulfate (Morphine Sulfate) 4 mg 1X ONCE IM Last administered on 02/07/19 08:53; Start 02/07/19 at 08:45; Stop 02/07/19 at 08:48; Status DC Prochlorperazine Edisylate (Compazine) 5 mg 1X ONCE IM Last administered on 02/07/19 08:52; Start 02/07/19 at 08:45; Stop 02/07/19 at 08:48; Status DC Amlodipine Besylate (Norvasc) 5 mg DAILY PO Last administered on 02/12/19 09:20; Start 02/07/19 at 10:00 Aspirin (Children'S Aspirin) 81 mg DAILYWBKFT PO Last administered on 02/07/19at 10:45; Start 02/07/19 at 10:00; Stop 02/07/19 at 15:05; Status DC Tramadol HCl (Ultram) 50 mg PRN Q6HRS PRN PO MILD TO MODERATE PAIN Last administered on 02/07/19 18:34; Start 02/07/19 at 11:00 Hydromorphone HCl (Dilaudid) 1 mg PRN Q4HRS PRN IV MODERATE TO SEVERE PAIN Last administered on 02/12/19 03:03; Start 02/07/19 at 11:00 Hydralazine HCl (Apresoline Inj) 10 mg PRN Q4HRS PRN IVP ELEVATED BP, SEE COMMENTS Last administered on 02/11/19 16:00; Start 02/07/19 at 15:15 Ondansetron HCl (Zofran) 4 mg PRN Q6HRS PRN IVP NAUSEA/VOMITING Last administered on 02/12/19 09:19; Start 02/07/19 at 15:15 Midazolam HCl (Versed) 2 mg PRN 1X PRN IV PRIOR TO PROCEDURE; Start 02/08/19 at 10:45; Stop 02/09/19 at 10:44; Status DC Fentanyl Citrate (Fentanyl 2ml Vial) 25 mcg PRN Q5MIN PRN IV X 2 DOSES FOR PAIN; Start 02/08/19 at 10:45; Stop 02/09/19 at 10:44; Status DC Fentanyl Citrate (Fentanyl 2ml Vial) 50 mcg PRN Q5MIN PRN IV X 2 DOSES FOR PAIN; Start 02/08/19 at 10:45; Stop 02/09/19 at 10:44; Status DC Ringer's Solution 1,000 ml @ 125 mls/hr Q8H IV Last administered on 02/08/19at 12:10; Start 02/08/19 at 10:39; Stop 02/08/19 at 22:38; Status DC Lidocaine HCl (Xylocaine-Mpf 1% 2ml Vial) 2 ml 1X PRN PRN ID IV START; Start 02/08/19 at 10:45; Stop 02/09/19 at 10:44; Status DC Propofol 20 ml @ As Directed STK-MED ONCE IV ; Start 02/08/19 at 13:16; Stop 02/08/19 at 13:17; Status DC Lidocaine HCl (Lidocaine Pf 2% Vial) 5 ml STK-MED ONCE .ROUTE ; Start 02/08/19 at 13:16; Stop 02/08/19 at 13:17; Status DC Pantoprazole Sodium (Protonix) 40 mg DAILYAC PO Last administered on 02/08/19at 14:41; Start 02/08/19 at 15:00; Stop 02/09/19 at 11:00; Status DC Clonidine HCl (Catapres Tts-2) 1 patch WEEKLY TD ; Start 02/09/19 at 09:00; Stop 02/08/19 at 17:56; Status DC Clonidine HCl (Catapres Tts-2) 1 patch WEEKLY TD Last administered on 02/08/19at 18:13; Start 02/08/19 at 18:00 Metoprolol Tartrate (Lopressor Vial) 5 mg Q6HRS IVP Last administered on 02/09/19at 12:51; Start 02/09/19 at 00:15; Stop 02/09/19 at 12:59; Status DC Influenza Virus Vaccine Quadrival (Afluria Quad 2019-20 (3yr Up) Syringe) 0.5 ml ONCE ONCE VAX IM ; Start 02/09/19 at 09:00; Stop 02/09/19 at 09:01; Status DC Pantoprazole Sodium (PROTONIX VIAL for IV PUSH) 40 mg DAILYAC IVP Last admin istered on 02/10/19at 10:08; Start 02/09/19 at 11:01; Stop 02/10/19 at 13:05; Status DC Piperacillin Sod/ Tazobactam Sod 3.375 gm/Sodium Chloride 50 ml @ 100 mls/hr Q6HRS IV Last administered on 02/12/19at 05:48; Start 02/09/19 at 12:00 Ondansetron HCl (Zofran) 4 mg PRN Q6HRS PRN IV NAUSEA/VOMITING; Start 02/09/19 at 11:30; Stop 02/09/19 at 11:32; Status DC Prochlorperazine (Compazine) 25 mg PRN Q12HR PRN RI NAUSEA/VOMITING; Start 02/09/19 at 11:30 Famotidine (Pepcid Vial) 20 mg BID IVP ; Start 02/09/19 at 21:00; Stop 02/09/19 at 11:30; Status DC Enoxaparin Sodium (Lovenox 40mg Syringe) 40 mg Q12HR SQ Last administered on 02/12/19at 09:19; Start 02/09/19 at 21:00 Sodium Chloride (Normal Saline Flush) 3 ml QSHIFT PRN IV AFTER MEDS AND BLOOD DRAWS; Start 02/09/19 at 11:30 Sodium Chloride 1,000 ml @ 100 mls/hr Q10H IV Last administered on 02/12/19at 09:26; Start 02/09/19 at 11:25 Bisacodyl (Dulcolax Supp) 10 mg PRN DAILY PRN RI CONSTIPATION; Start 02/09/19 at 11:30 Labetalol HCl (Normodyne Iv Push) 20 mg Q4HRS IVP Last administered on 02/11/19at 09:33; Start 02/09/19 at 13:00; Stop 02/11/19 at 15:28; Status DC Nicardipine HCl 50 mg/Sodium Chloride 250 ml @ 25 mls/hr CONT PRN IV SEE I/O RECORD Last administered on 02/09/19at 17:42; Start 02/09/19 at 17:15; Stop 02/11/19 at 16:50; Status DC Morphine Sulfate (Morphine Sulfate) 2 mg PRN Q2HR PRN IV SEVERE PAIN Last administered on 02/11/19 23:56; Start 02/09/19 at 20:15 Lactobacillus Rhamnosus (Culturelle) 1 cap BID PO Last administered on 9at 09:20; Start 02/10/19 at 21:00 Aspirin (Children'S Aspirin) 81 mg DAILYWBKFT PO Last administered on 02/12/19 09:20; Start 02/11/19 at 08:00 Pantoprazole Sodium (PROTONIX VIAL for IV PUSH) 40 mg BIDAC IVP Last administered on 02/12/19 09:19; Start 02/10/19 at 16:30 Diphenhydramine HCl (Benadryl) 12.5 mg PRN QHS PRN IVP ITCHING Last administered on 02/10/19 22:09; Start 02/10/19 at 19:45 Phenyleph/Shark Oil/Min Oil/Petrol (Preparation H) 1 kristin PRN QID PRN RC RECTAL PAIN Last administered on 02/10/19 20:18; Start 02/10/19 at 20:00 Lorazepam (Ativan Inj) 1 mg PRN QHS PRN IVP ANXIETY / AGITATION Last administered on 02/11/19at 00:56; Start 02/11/19 at 01:00 Labetalol HCl (Trandate) 200 mg BID PO Last administered on 02/12/19 09:20; Start 02/11/19 at 21:00 Atorvastatin Calcium (Lipitor) 10 mg QHS PO Last administered on 02/11/19at 21:08; Start 02/11/19 at 21:00 Active Scripts Active Vitamin D3 (Cholecalciferol (Vitamin D3)) 5,000 Unit Capsule 5,000 Unit PO DAILY 30 Days Miralax (Polyethylene Glycol 3350) 17 Gm Powd.pack 1 Packet PO DAILY Lyrica (Pregabalin) 100 Mg Capsule 1 Cap PO BID 30 Days Reported Percocet 7.5-325 Mg Tablet (Oxycodone/Acetaminophen) 1 Each Tablet 2 Tab PO PRN TID PRN Proair Hfa Inhaler (Albuterol Sulfate) 8.5 Gm Hfa.aer.ad 2 Puff INH PRN Q6HRS PRN Amitriptyline Hcl 10 Mg Tablet 6 Tab PO QHS Glimepiride 4 Mg Tablet 1 Tab PO DAILYWBKFT Compazine (Prochlorperazine Maleate) 10 Mg Tablet 10 Mg PO PRN Q8HRS PRN Diclofenac Sodium 75 Mg Tablet.dr 1 Tab PO BID Pravastatin Sodium 40 Mg Tablet 1 Tab PO QHS Clonidine Hcl 0.3 Mg Tablet 1 Tab PO BID Labetalol Hcl 200 Mg Tablet 1 Tab PO BID Vitals/I & O Vital Sign - Last 24 Hours 02/11/19 02/11/19 02/11/19 02/11/19 12:00 13:27 13:28 13:58 Temp 98.6 98.6 Pulse 66 Resp 16 B/P (MAP) 158/88 (111) 178/89 Pulse Ox 100 100 O2 Delivery Nasal Cannula Nasal Cannula Nasal Cannula O2 Flow Rate 2.0 2.0 02/11/19 02/11/19 02/11/19 02/11/19 15:00 16:00 16:30 16:45 Temp 98.9 97.7 98.9 97.7 Pulse 84 76 92 Resp 20 18 18 B/P (MAP) 155/100 (118) 155/100 125/68 (87) 167/86 (113) Pulse Ox 100 100 98 O2 Delivery Nasal Cannula Nasal Cannula Nasal Cannula O2 Flow Rate 2.0 2.0 2.0 02/11/19 02/11/19 02/11/19 02/11/19 19:01 21:08 23:21 23:56 Temp 99.6 98.8 99.6 98.8 Pulse 99 92 92 Resp 20 20 B/P (MAP) 148/60 (89) 167/86 145/75 (98) Pulse Ox 98 97 O2 Delivery Room Air Nasal Cannula Room Air 02/12/19 02/12/19 02/12/19 02/12/19 03:20 07:15 09:20 09:20 Temp 98.7 96.8 98.7 96.8 Pulse 98 82 82 82 Resp 20 20 B/P (MAP) 160/92 (114) 117/57 (77) 117/57 117/57 Pulse Ox 96 93 O2 Delivery Room Air Room Air 02/12/19 11:06 Temp 97.8 97.8 Pulse 90 Resp 18 B/P (MAP) 138/62 (87) Pulse Ox 96 O2 Delivery Room Air Intake and Output 02/11/19 02/11/19 02/12/19 14:59 22:59 06:59 Intake Total 1100 ml 240 ml Output Total 350 ml 450 ml 1450 ml Balance -350 ml 650 ml -1210 ml Problem List Problems Medical Problems: (1) Hypercalcemia Status: Acute (2) Low back pain Status: Acute (3) Nausea and vomiting Status: Acute (4) Uncontrolled diabetes mellitus Status: Acute Assessment Abd pain- with improved nausea, most likely multifactorial in etiology, CPM VALERIANO BILLINGS MD Feb 12, 2019 11:25
--- NOTE | 2019-02-12 11:41 | NUR ---
SW following pt. Pt is a transfer from ICU. Pt has been accepted at [facility] and Insurance has approved. RN notified.
[2019-02-12 15:20] VITALS: BP 149/51
[2019-02-12] MEDS: MORPHINE SULFATE 2 MG/ML VIAL. IV PRN ×2 (16:00→20:50)
--- NOTE | 2019-02-12 17:39 | PDOC ---
PROGRESS NOTES Assessment Assessment Coded stroke on the floor. Acute mental status changes. Weakness, not moving UE and LE. Not able to talk. Decreased response. Metabolic encephalopathy. DM. Hyperglycemia. Diabetic neuropathy. HTN. Hypercalcemia. Hyperparathyroidism likely. Vit D deficiency. Old bilateral cerebellar infarcts. Obesity. No evidence of acute CVA this time after neurological evaluation. RECOMMENDATIONS/PLAN: BP control. Treat medical diseases. ASA 81 mg daily. EEG. Not able to perform on her after several attempts due to her hair condition. OT/PT. FU with PCP. Brain MRI on 02/09/19: No acute findings. History of Present Illness This is a 73-year-old AA female patient with PMHx including Arthritis, Asthma, Diabetes-Type II, Heart Disease, Hypertension, TIA, neuropathy was seen multiple times recently in ED for falls and chronic bilateral LE weakness. She was admitted this time on 02/07/19 with complaints of vomiting blood as having 4 episodes of coffee-ground material. On 02/09/19, she was reportedly to have acute MS changes, unresponsiveness, not talking nor moves her extremities, so neurology was called for consultation for coded stroke. Acute stroke was ruled out on the same day of coding stroke.. Past Medical History Cardiovascular: HTN Musculoskeletal: low back pain. Rheumatologic: Rheumatoid arthritis Endocrine: Diabetes PAST SURGERY HISTORY: No major surgery recently. ALLERGY: NKDA MEDICATIONS: Refer to [facility] FAMILY HISTORY: Non contributory. SOCIAL HISTORY: Lives in half-way. Denies current smoking, drinking, and illicit drug use. REVIEW OF SYSTEMS: Constitutional: Obesity. Head: No traumatic brain or head injury. Skin: No edema, or rash. Ear: No infection. Eyes: No vision loss or color blindness. Nose: No bleeding or purulent discharges. Hearing: No hearing decrease. Neck: No injury. Breast: No history of cancer, masses,or discharges. Cardiac: HTN. Pulmonary: No COPD. GI: No GI ulcer, GI bleeding. Urinary/genital: UTI. Endocrinologic: Diabetes Mellitus, obesity. Skeletomuscular: Generalized weakness. Neurological: see HP. Psychiatric: Denies drug use/abuse. Otherwise, not [id number] review of systems. PHYSICAL EXAMINATION: General appearance is in acute distress. HEENT: Normocephalic and nontraumatic. Eyes, nose, ears, and throat are unremarkable. Neck is supple. No lymphadenopathy. No crepitus. Cardiovascular: S1, S2, regular rate and rhythm. Pulmonary: relative clear to auscultation bilaterally. Abdomen: Bowel sounds are positive. Extremities: No rash, lesions, or edema. No restriction of range of motion NEUROLOGICAL EXAMINATION: Sleepiness, but arousable. Partially oriented to time, place but knew person. PERRL. EOMI. CN: no focal findings. Muscle tone: within normal. Muscle strength: 4 UE, 4- LE DTR: 1-2. Plantar reflex: Flexor response bilaterally Gait: not examined in chair. Sensory exam: No acute finding. No cerebellar signs elicited. F-T-N test not performed due to not follow commands . Objective Objective Vital Signs Date Time Temp Pulse Resp B/P (MAP) Pulse Ox O2 Delivery O2 Flow Rate FiO2 02/12/19 17:28 100 Nasal Cannula 02/12/19 17:28 2.0 02/12/19 15:20 97.6 81 20 149/51 (83) 97.6 Intake and Output 02/12/19 07:00 Intake Total 1340 ml Output Total 2250 ml Balance -910 ml Intake Oral 490 ml IV Total 850 ml Output Urine Total 2250 ml # Bowel Movements 1 Vitals Signs Vitals VS - Last 72 Hours, by Label Date Time Temp Pulse Resp B/P (MAP) Pulse Ox O2 Delivery O2 Flow Rate FiO2 02/12/19 17:28 100 Nasal Cannula 02/12/19 17:28 100 Nasal Cannula 2.0 02/12/19 16:03 100 Nasal Cannula 02/12/19 16:00 100 Nasal Cannula 2.0 02/12/19 15:20 97.6 81 20 149/51 (83) 100 Room Air 97.6 02/12/19 15:00 96 Nasal Cannula 02/12/19 13:31 96 Nasal Cannula 2.0 02/12/19 11:06 97.8 90 18 138/62 (87) 96 Room Air 97.8 02/12/19 09:20 82 117/57 02/12/19 09:20 82 117/57 02/12/19 08:00 Nasal Cannula 02/12/19 07:15 96.8 82 20 117/57 (77) 93 Room Air 96.8 02/12/19 03:20 98.7 98 20 160/92 (114) 96 Room Air 98.7 02/11/19 23:56 Room Air 02/11/19 23:21 98.8 92 20 145/75 (98) 97 Nasal Cannula 98.8 02/11/19 21:08 92 167/86 02/11/19 19:01 99.6 99 20 148/60 (89) 98 Room Air 99.6 02/11/19 16:45 97.7 92 18 167/86 (113) 98 Nasal Cannula 2.0 97.7 02/11/19 16:30 18 125/68 (87) 100 Nasal Cannula 2.0 02/11/19 16:00 76 155/100 02/11/19 15:00 98.9 84 20 155/100 (118) 100 Nasal Cannula 2.0 98.9 02/11/19 13:58 Nasal Cannula 02/11/19 13:28 100 Nasal Cannula 2.0 02/11/19 13:27 178/89 02/11/19 12:00 98.6 66 16 158/88 (111) 100 Nasal Cannula 2.0 98.6 02/11/19 11:23 Nasal Cannula 02/11/19 10:53 100 Nasal Cannula 2.0 02/11/19 10:00 67 16 145/82 (103) 100 Nasal Cannula 2.0 02/11/19 09:33 83 168/89 02/11/19 09:00 76 17 168/89 (115) 100 Nasal Cannula 2.0 02/11/19 08:00 Nasal Cannula 2.0 02/11/19 08:00 99.1 74 18 138/67 (90) 100 Nasal Cannula 2.0 99.1 02/11/19 07:00 87 20 172/86 (114) 100 Nasal Cannula 2.0 Laboratory Laboratory Laboratory Tests Test 02/11/19 20:13 02/12/19 08:24 02/12/19 11:30 02/12/19 16:43 Glucose (Fingerstick) 168 mg/dL (70-99) 161 mg/dL (70-99) 161 mg/dL (70-99) 297 mg/dL (70-99) Microbiology 02/09/19 Blood Culture - Preliminary, Resulted NO GROWTH AFTER 3 DAYS 02/08/19 Urine Culture - Final, Complete 02/08/19 Urine Culture Result 1 (REECE) - Final, Complete 02/08/19 Antimicrobic Susceptibility - Final, Complete Medication Medications Current Medications Amlodipine Besylate (Norvasc) 5 mg BID PO ; Start 02/12/19 at 21:00 Atorvastatin Calcium (Lipitor) 10 mg QHS PO Last administered on 02/11/19at 21:08; Start 02/11/19 at 21:00 Labetalol HCl (Trandate) 200 mg BID PO Last administered on 02/12/19at 09:20; Start 02/11/19 at 21:00 Comment Review of Relevant I have reviewed the following items jorge luis (where applicable) has been applied. VLAD HOPKINS MD Feb 12, 2019 17:39
[2019-02-12] MEDS ORDERED: DEXTROSE 50% 25 GM / 50ML DISP.SYRIN. IV PRN (18:45)
[2019-02-12 19:37] VITALS: BP 146/74
[2019-02-12] MEDS: ATORVASTATIN CALCIUM 10 MG TABLET. PO SCH (20:52)
[2019-02-12 23:31] VITALS: BP 171/74
[2019-02-13] MEDS: PIPERACILLIN/TAZOBACTAM 3.375 GM in IV NORMAL SALINE 50ML 50 ML IV SCH ×3 (00:34→12:28)
[2019-02-13 03:27] VITALS: BP 164/74
[2019-02-13] MEDS: MORPHINE SULFATE 2 MG/ML VIAL. IV PRN ×2 (03:37→23:19)
[2019-02-13 07:53] VITALS: BP 164/87
[2019-02-13] MEDS: INSULIN LISPRO 300 UNITS/3 ML VIAL. SQ SCH ×3 (08:00→17:53)
--- NOTE | 2019-02-13 08:02 | PDOC ---
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 Remote lacunar infarct is noted in the right putamen. Low-attenuation in the periventricular white matter is suggestive of chronic small vessel ischemic changes. Hematemesis - on ASA only, just had recently EGD. consult GI. Multiple falls - was just discharged with home health previously, to ED multiple visits for falls. 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 - no sonographic evidence of deep venous thrombosis involving the visualized deep venous structures of either lower extremity. Failure to thrive MILD HYPERNATREMIA - hypovolemic VOLUME DEPLETED, dehydration Gait instability Multilevel degenerative change throughout the lumbar spine and lower thoracic spine, resulting in stenosis - Grade 1 anterolisthesis of L5 on S1 and retrolisthesis of L2 on L3. ELEVATED ESR Bilateral leg weakness Anemia - likely of chronic disease UTI //mdr URINE CULTURE Final Final report URINE CULTURE RES 1 Final Comment Coagulase negative Staphylococcus species, not Staphylococcus saprophyticus. Greater than 100,000 colony forming units per mL Based on resistance to oxacillin this isolate would be resistant to all currently available beta-lactam antimicrobial agents, with the exception of the newer cephalosporins with anti-MRSA activity, such as Ceftaroline ANTIMICROBIAL SUSCEPTIBILITY Final Comment S = Susceptible; I = Intermediate; R = Resistant P = Positive; N = Negative MICS are expressed in micrograms per mL Antibiotic RSLT#1 RSLT#2 RSLT#3 RSLT#4 Ciprofloxacin R>=8 Gentamicin S =4 Levofloxacin I =4 Linezolid S =1 Nitrofurantoin S<=16 Oxacillin R>=4 Penicillin R>=0.5 Quinupristin/Dalfopristin S<=0.25 Rifampin S<=0.5 Tetracycline S =2 Trimethoprim/Sulfa S<=10 Vancomycin S =2 abdominal pain, slow to improve hyperparathyroidism PPX - PPI, SCDs FULL CODE inpatient for UGIB po bactrim repeat blood culture follow ca ++ BLOOD CULTURE Preliminary NO GROWTH AFTER 4 DAYS ID consult 27 min pt exam, chart review, > 50% of time spent with exam, chart review, pt care coordination History of Present Illness History of Present Illness 02/11/19 Pt seen and examined in ICU Pt seen sitting up with the nurses Pt passed swallow test with speech therapy and has been started on honey thick diet Alert, oriented Hopefully will move patient up to a med floor today Charts and labs reviewed DW RN 02/10/19 Pt seen and examined in the ICU Was sitting upright in chair Accompanied by family Failed swallow test with speech pathology Erosive esophagitis and reflux confirmed by pathology report MRI showed small infarcts and chronic vessel disease DW RN Charts and labs reviewed Vitals Vitals Vital Signs Date Time Temp Pulse Resp B/P (MAP) Pulse Ox O2 Delivery O2 Flow Rate FiO2 02/13/19 07:53 99.2 76 20 164/87 (112) 100 Nasal Cannula 2.0 99.2 Physical Exam Physical Exam NEW RIGHT SIDED WEAKNESS 02/10 General: Alert, Cooperative, No acute distress Heart: Regular rate (SR), Normal S1, Normal S2, No murmurs Lungs: Clear Abdomen: Normal bowel sounds, Soft, No tenderness, Other (obese) Extremities: No clubbing, No cyanosis, No edema Skin: No breakdown, No significant lesion Labs LABS PATIENT: BIB SANTIAGO ACCT: [id number] LOC: [address] [place] [address] U: [id number] AGE/SX: 74/F ROOM: 67 RE02/07/[address]: LALO SMITH MD : 1945 BED: 1 DIS: STATUS: ADM IN TLOC: SPEC #: [id number] QUINTIN: 02/09/19 STATUS: RES REQ #: [id number] RECD: 02/09/[address]: BLAYNE MILES MD SOURCE: BLOOD ENTR: 02/09/[address]: JEFF WARNER MD SPDESC: TOAN REYES CHRISTOPHER S MD SHI, FERILYN MD THOMPSON,CHEPE Calloway MD ORDERED: BCULT Procedure Result --- --------- BLOOD CULTURE Preliminary NO GROWTH AFTER [address]: LALO SMITH MD : 1945 BED: 1 DIS: STATUS: ADM IN TLOC: SPEC #: [id number] QUINTIN: 02/08/19 STATUS: COMP REQ #: [id number] RECD: 02/08/[address]: NORRIS PAULINO MD SOURCE: VOID ENTR: 02/08/[address]: TOAN REYES [facility]: LALO SMITH MD, MICHAEL F MD ORDERED: URINE CULTURE Procedure Result URINE CULTURE Final Final report URINE CULTURE RES 1 Final Comment Coagulase negative Staphylococcus species, not Staphylococcus saprophyticus. Greater than 100,000 colony forming units per mL Based on resistance to oxacillin this isolate would be resistant to all currently available beta-lactam antimicrobial agents, with the exception of the newer cephalosporins with anti-MRSA activity, such as Ceftaroline ANTIMICROBIAL SUSCEPTIBILITY Final Comment S = Susceptible; I = Intermediate; R = Resistant P = Positive; N = Negative MICS are expressed in micrograms per mL Antibiotic RSLT#1 RSLT#2 RSLT#3 RSLT#4 Ciprofloxacin R>=8 Gentamicin S =4 Levofloxacin I =4 Linezolid S =1 Nitrofurantoin S<=16 Oxacillin R>=4 Penicillin R>=0.5 Quinupristin/Dalfopristin S<=0.25 Rifampin S<=0.5 Tetracycline S =2 Trimethoprim/Sulfa S<=10 Vancomycin S =2 Performed at: - [facility] [address] [facility] [address], [place], [place] [id number] Attendant [employer] Laundry: VIJAY Castaneda MD, Phone: [phone] Laboratory Tests Test 02/12/19 08:24 02/12/19 11:30 02/12/19 16:43 02/12/19 20:27 Glucose (Fingerstick) 161 mg/dL (70-99) 161 mg/dL (70-99) 297 mg/dL (70-99) 211 mg/dL (70-99) Assessment and Plan Assessmemt and Plan Problems Medical Problems: (1) Hypercalcemia Status: Acute (2) Low back pain Status: Acute (3) Nausea and vomiting Status: Acute (4) Uncontrolled diabetes mellitus Status: Acute Comment Review of Relevant I have reviewed the following items jorge luis (where applicable) has been applied. Labs Laboratory Tests Test 02/11/19 09:15 02/11/19 14:18 02/11/19 17:11 02/11/19 20:13 White Blood Count 6.7 x10^3/uL (4.0-11.0) Red Blood Count 3.94 x10^6/uL (3.50-5.40) Hemoglobin 12.4 g/dL (12.0-15.5) Hematocrit 37.7 % (36.0-47.0) Mean Corpuscular Volume 96 fL (79-100) Mean Corpuscular Hemoglobin 32 pg (25-35) Mean Corpuscular Hemoglobin Concent 33 g/dL (31-37) Red Cell Distribution Width 13.2 % (11.5-14.5) Platelet Count 204 x10^3/uL (140-400) Sodium Level 144 mmol/L (136-145) Potassium Level 3.6 mmol/L (3.5-5.1) Chloride Level 109 mmol/L (98-107) Carbon Dioxide Level 29 mmol/L (21-32) Anion Gap 6 (6-14) Blood Urea Nitrogen 10 mg/dL (7-20) Creatinine 0.8 mg/dL (0.6-1.0) Estimated GFR (Cockcroft-Gault) 84.6 BUN/Creatinine Ratio 13 (6-20) Glucose Level 167 mg/dL (70-99) Calcium Level 10.1 mg/dL (8.5-10.1) Total Bilirubin 0.5 mg/dL (0.2-1.0) Aspartate Amino Transf (AST/SGOT) 13 U/L (15-37) Alanine Aminotransferase (ALT/SGPT) 12 U/L (14-59) Alkaline Phosphatase 74 U/L (46-116) Total Protein 6.9 g/dL (6.4-8.2) Albumin 3.0 g/dL (3.4-5.0) Albumin/Globulin Ratio 0.8 (1.0-1.7) Glucose (Fingerstick) 189 mg/dL (70-99) 176 mg/dL (70-99) 168 mg/dL (70-99) Test 02/12/19 08:24 02/12/19 11:30 02/12/19 16:43 02/12/19 20:27 Glucose (Fingerstick) 161 mg/dL (70-99) 161 mg/dL (70-99) 297 mg/dL (70-99) 211 mg/dL (70-99) Laboratory Tests Test 02/12/19 08:24 02/12/19 11:30 02/12/19 16:43 02/12/19 20:27 Glucose (Fingerstick) 161 mg/dL (70-99) 161 mg/dL (70-99) 297 mg/dL (70-99) 211 mg/dL (70-99) Microbiology 02/09/19 Blood Culture - Preliminary, Resulted NO GROWTH AFTER 3 DAYS 02/08/19 Urine Culture - Final, Complete 02/08/19 Urine Culture Result 1 (REECE) - Final, Complete 02/08/19 Antimicrobic Susceptibility - Final, Complete Medications Current Medications Sodium Chloride 1,000 ml @ 1,000 mls/hr 1X ONCE IV Last administered on 02/07/19at 07:45; Start 02/07/19 at 06:30; Stop 02/07/19 at 07:29; Status DC Pantoprazole Sodium (PROTONIX VIAL for IV PUSH) 40 mg 1X ONCE IVP Last administered on 02/07/19at 07:42; Start 02/07/19 at 06:30; Stop 02/07/19 at 06:31; Status DC Albuterol/ Ipratropium (Duoneb) 3 ml 1X ONCE NEB Last administered on 02/07/19at 07:43; Start 02/07/19 at 07:30; Stop 02/07/19 at 07:31; Status DC Fentanyl Citrate (Fentanyl 2ml Vial) 50 mcg 1X ONCE IVP Last administered on 02/07/19at 08:01; Start 02/07/19 at 08:00; Stop 02/07/19 at 08:01; Status DC Ondansetron HCl (Zofran) 4 mg 1X ONCE IV Last administered on 02/07/19at 08:00; Start 02/07/19 at 08:00; Stop 02/07/19 at 08:01; Status DC Fentanyl Citrate (Fentanyl 2ml Vial) 50 mcg 1X ONCE IVP Last administered on 02/07/19at 08:40; Start 02/07/19 at 08:15; Stop 02/07/19 at 08:24; Status DC Ondansetron HCl (Zofran) 4 mg PRN Q8HRS PRN IV NAUSEA/VOMITING Last administered on 02/08/19at 07:57; Start 02/07/19 at 08:15; Stop 02/08/19 at 08:14; Status DC Sodium Chloride 1,000 ml @ 150 mls/hr Q6H40M IV Last administered on 02/08/19at 07:07; Start 02/07/19 at 08:09; Stop 02/08/19 at 08:08; Status DC Morphine Sulfate (Morphine Sulfate) 4 mg 1X ONCE IM Last administered on 02/07at 08:53; Start 02/07/19 at 08:45; Stop 02/07/19 at 08:48; Status DC Prochlorperazine Edisylate (Compazine) 5 mg 1X ONCE IM Last administered on 02/07/19at 08:52; Start 02/07/19 at 08:45; Stop 02/07/19 at 08:48; Status DC Amlodipine Besylate (Norvasc) 5 mg DAILY PO Last administered on 02/12/19at 09:20; Start 02/07/19 at 10:00; Stop 02/12/19 at 16:44; Status DC Aspirin (Children'S Aspirin) 81 mg DAILYWBKFT PO Last administered on 02/07/19at 10:45; Start 02/07/19 at 10:00; Stop 02/07/19 at 15:05; Status DC Tramadol HCl (Ultram) 50 mg PRN Q6HRS PRN PO MILD TO MODERATE PAIN Last administered on 02/07/19at 18:34; Start 02/07/19 at 11:00 Hydromorphone HCl (Dilaudid) 1 mg PRN Q4HRS PRN IV MODERATE TO SEVERE PAIN Last administered on 02/12/19at 15:00; Start 02/07/19 at 11:00 Hydralazine HCl (Apresoline Inj) 10 mg PRN Q4HRS PRN IVP ELEVATED BP, SEE COMMENTS Last administered on 02/11/19at 16:00; Start 02/07/19 at 15:15 Ondansetron HCl (Zofran) 4 mg PRN Q6HRS PRN IVP NAUSEA/VOMITING Last administered on 02/12/19at 16:00; Start 02/07/19 at 15:15 Midazolam HCl (Versed) 2 mg PRN 1X PRN IV PRIOR TO PROCEDURE; Start 02/08/19 at 10:45; Stop 02/09/19 at 10:44; Status DC Fentanyl Citrate (Fentanyl 2ml Vial) 25 mcg PRN Q5MIN PRN IV X 2 DOSES FOR PAIN; Start 02/08/19 at 10:45; Stop 02/09/19 at 10:44; Status DC Fentanyl Citrate (Fentanyl 2ml Vial) 50 mcg PRN Q5MIN PRN IV X 2 DOSES FOR PA IN; Start 02/08/19 at 10:45; Stop 02/09/19 at 10:44; Status DC Ringer's Solution 1,000 ml @ 125 mls/hr Q8H IV Last administered on 02/08/19at 12:10; Start 02/08/19 at 10:39; Stop 02/08/19 at 22:38; Status DC Lidocaine HCl (Xylocaine-Mpf 1% 2ml Vial) 2 ml 1X PRN PRN ID IV START; Start 02/08/19 at 10:45; Stop 02/09/19 at 10:44; Status DC Propofol 20 ml @ As Directed STK-MED ONCE IV ; Start 02/08/19 at 13:16; Stop 02/08/19 at 13:17; Status DC Lidocaine HCl (Lidocaine Pf 2% Vial) 5 ml STK-MED ONCE .ROUTE ; Start 02/08/19 at 13:16; Stop 02/08/19 at 13:17; Status DC Pantoprazole Sodium (Protonix) 40 mg DAILYAC PO Last administered on 02/08/19at 14:41; Start 02/08/19 at 15:00; Stop 02/09/19 at 11:00; Status DC Clonidine HCl (Catapres Tts-2) 1 patch WEEKLY TD ; Start 02/09/19 at 09:00; Stop 02/08/19 at 17:56; Status DC Clonidine HCl (Catapres Tts-2) 1 patch WEEKLY TD Last administered on 02/08/19at 18:13; Start 02/08/19 at 18:00 Metoprolol Tartrate (Lopressor Vial) 5 mg Q6HRS IVP Last administered on 9at 12:51; Start 02/09/19 at 00:15; Stop 02/09/19 at 12:59; Status DC Influenza Virus Vaccine Quadrival (Afluria Quad 2019-20 (3yr Up) Syringe) 0.5 ml ONCE ONCE VAX IM ; Start 02/09/19 at 09:00; Stop 02/09/19 at 09:01; Status DC Pantoprazole Sodium (PROTONIX VIAL for IV PUSH) 40 mg DAILYAC IVP Last administered on 02/10/19at 10:08; Start 02/09/19 at 11:01; Stop 02/10/19 at 13:05; Status DC Piperacillin Sod/ Tazobactam Sod 3.375 gm/Sodium Chloride 50 ml @ 100 mls/hr Q6HRS IV Last administered on 02/13/19at 06:10; Start 02/09/19 at 12:00 Ondansetron HCl (Zofran) 4 mg PRN Q6HRS PRN IV NAUSEA/VOMITING; Start 02/09/19 at 11:30; Stop 02/09/19 at 11:32; Status DC Prochlorperazine (Compazine) 25 mg PRN Q12HR PRN IN NAUSEA/VOMITING; Start 02/09/19 at 11:30 Famotidine (Pepcid Vial) 20 mg BID IVP ; Start 02/09/19 at 21:00; Stop 02/09/19 at 11:30; Status DC Enoxaparin Sodium (Lovenox 40mg Syringe) 40 mg Q12HR SQ Last administered on 02/12/19at 20:52; Start 02/09/19 at 21:00 Sodium Chloride (Normal Saline Flush) 3 ml QSHIFT PRN IV AFTER MEDS AND BLOOD DRAWS; Start 02/09/19 at 11:30 Sodium Chloride 1,000 ml @ 100 mls/hr Q10H IV Last administered on 02/12/19at 20:50; Start 02/09/19 at 11:25 Bisacodyl (Dulcolax Supp) 10 mg PRN DAILY PRN IN CONSTIPATION; Start 02/09/19 at 11:30 Labetalol HCl (Normodyne Iv Push) 20 mg Q4HRS IVP Last administered on 02/11/19at 09:33; Start 02/09/19 at 13:00; Stop 02/11/19 at 15:28; Status DC Nicardipine HCl 50 mg/Sodium Chloride 250 ml @ 25 mls/hr CONT PRN IV SEE I/O RECORD Last administered on 02/09/19at 17:42; Start 02/09/19 at 17:15; Stop 02/11/19 at 16:50; Status DC Morphine Sulfate (Morphine Sulfate) 2 mg PRN Q2HR PRN IV SEVERE PAIN Last administered on 02/13/19at 03:37; Start 02/09/19 at 20:15 Lactobacillus Rhamnosus (Culturelle) 1 cap BID PO Last administered on 02/12/19at 20:52; Start 02/10/19 at 21:00 Aspirin (Children'S Aspirin) 81 mg DAILYWBKFT PO Last administered on 02/12/19 09:20; Start 02/11/19 at 08:00 Pantoprazole Sodium (PROTONIX VIAL for IV PUSH) 40 mg BIDAC IVP Last administered on 02/12/19 17:47; Start 02/10/19 at 16:30 Diphenhydramine HCl (Benadryl) 12.5 mg PRN QHS PRN IVP ITCHING Last administered on 02/10/19 22:09; Start 02/10/19 at 19:45 Phenyleph/Shark Oil/Min Oil/Petrol (Preparation H) 1 kristin PRN QID PRN RC RECTAL PAIN Last administered on 02/10/19 20:18; Start 02/10/19 at 20:00 Lorazepam (Ativan Inj) 1 mg PRN QHS PRN IVP ANXIETY / AGITATION Last administered on 02/11/19 00:56; Start 02/11/19 at 01:00 Labetalol HCl (Trandate) 200 mg BID PO Last administered on 02/12/19 20:51; Start 02/11/19 at 21:00 Atorvastatin Calcium (Lipitor) 10 mg QHS PO Last administered on 02/12/19 20:52; Start 02/11/19 at 21:00 Amlodipine Besylate (Norvasc) 5 mg BID PO Last administered on 02/12/19 20:52 ; Start 02/12/19 at 21:00 Glimepiride (Amaryl) 2 mg [id number] PO ; Start 02/13/19 at 07:00 Insulin Human Lispro (HumaLOG) 0-5 UNITS TIDWMEALS SQ ; Start 02/13/19 at 08:00 Dextrose (Dextrose 50%-Water Syringe) 12.5 gm PRN Q15MIN PRN IV SEE COMMENTS; Start 02/12/19 at 18:45 Active Scripts Active Vitamin D3 (Cholecalciferol (Vitamin D3)) 5,000 Unit Capsule 5,000 Unit PO DAILY 30 Days Miralax (Polyethylene Glycol 3350) 17 Gm Powd.pack 1 Packet PO DAILY Lyrica (Pregabalin) 100 Mg Capsule 1 Cap PO BID 30 Days Reported Percocet 7.5-325 Mg Tablet (Oxycodone/Acetaminophen) 1 Each Tablet 2 Tab PO PRN TID PRN Proair Hfa Inhaler (Albuterol Sulfate) 8.5 Gm Hfa.aer.ad 2 Puff INH PRN Q6HRS PRN Amitriptyline Hcl 10 Mg Tablet 6 Tab PO QHS Glimepiride 4 Mg Tablet 1 Tab PO DAILYWBKFT Compazine (Prochlorperazine Maleate) 10 Mg Tablet 10 Mg PO PRN Q8HRS PRN Diclofenac Sodium 75 Mg Tablet.dr 1 Tab PO BID Pravastatin Sodium 40 Mg Tablet 1 Tab PO QHS Clonidine Hcl 0.3 Mg Tablet 1 Tab PO BID Labetalol Hcl 200 Mg Tablet 1 Tab PO BID Vitals/I & O Vital Sign - Last 24 Hours 02/12/19 02/12/19 02/12/19 02/12/19 09:20 09:20 11:06 13:31 Temp 97.8 97.8 Pulse 82 82 90 Resp 18 B/P (MAP) 117/57 117/57 138/62 (87) Pulse Ox 96 96 O2 Delivery Room Air Nasal Cannula O2 Flow Rate 2.0 02/12/19 02/12/19 02/12/19 02/12/19 15:00 15:20 16:00 16:03 Temp 97.6 97.6 Pulse 81 Resp 20 B/P (MAP) 149/51 (83) Pulse Ox 96 100 100 100 O2 Delivery Nasal Cannula Room Air Nasal Cannula Nasal Cannula O2 Flow Rate 2.0 02/12/19 02/12/19 02/12/19 02/12/19 17:28 17:28 19:37 20:00 Temp 98.3 98.3 Pulse 66 Resp 20 B/P (MAP) 146/74 (98) Pulse Ox 100 100 99 O2 Delivery Nasal Cannula Nasal Cannula Nasal Cannula Nasal Cannula O2 Flow Rate 2.0 2.0 02/12/19 02/12/19 02/12/19 02/13/19 20:51 20:52 23:31 03:27 Temp 98.7 98.8 98.7 98.8 Pulse 66 66 67 80 Resp 20 20 B/P (MAP) 146/74 146/74 171/74 (106) 164/74 (104) Pulse Ox 100 100 O2 Delivery Nasal Cannula Nasal Cannula O2 Flow Rate 2.0 2.0 02/13/19 07:53 Temp 99.2 99.2 Pulse 76 Resp 20 B/P (MAP) 164/87 (112) Pulse Ox 100 O2 Delivery Nasal Cannula O2 Flow Rate 2.0 Intake and Output 02/12/19 02/12/19 02/13/19 15:00 23:00 07:00 Intake Total 240 ml 240 ml Output Total 400 ml 900 ml Balance 240 ml -160 ml -900 ml BLAYNE MILES MD Feb 13, 2019 08:02
[2019-02-13] MEDS: IV NORMAL SALINE 1000ML BAG 1,000 ML IV SCH ×2 (08:16→19:58)
[2019-02-13] MEDS: traMADol 50 MG TABLET PO PRN (08:20)
[2019-02-13] MEDS: HYDROmorphone 2 MG/ML VIAL IV PRN ×4 (08:22→19:59)
[2019-02-13] MEDS: ONDANSETRON PF 4 MG/2 ML VIAL. IVP PRN ×3 (08:35→17:45)
[2019-02-13] MEDS: amLODIPine BESYLATE 5 MG TABLET PO SCH ×2 (08:36→20:44)
[2019-02-13] MEDS: LACTOBACILLUS RHAMNOSUS GG 1 CAPSULE. PO SCH ×2 (08:36→20:42)
[2019-02-13] MEDS: GLIMEPIRIDE 2 MG TABLET. PO SCH ×2 (08:36→17:48)
[2019-02-13] MEDS: LABETALOL HCL 200 MG TABLET PO SCH ×2 (08:37→20:43)
[2019-02-13] MEDS: ASPIRIN CHEWABLE 81 MG TABLET. PO SCH (08:37)
[2019-02-13] MEDS: ENOXAPARIN 40 MG/0.4 ML SYRINGE. SQ SCH ×2 (08:38→20:42)
[2019-02-13] MEDS: PANTOPRAZOLE IV PUSH 40 MG VIAL. IVP SCH ×2 (08:38→17:46)
[2019-02-13 11:00] VITALS: BP 130/67
[2019-02-13] MEDS: diphenhydrAMINE 50 MG/ML VIAL IVP PRN (13:29)
[2019-02-13 15:00] VITALS: BP 168/90
[2019-02-13] MEDS: SMZ/TMP 800/160MG TABLET. PO SCH ×2 (15:41→20:44)
[2019-02-13 19:53] VITALS: BP 146/70
[2019-02-13] MEDS: ATORVASTATIN CALCIUM 10 MG TABLET. PO SCH (20:44)
[2019-02-13 23:15] VITALS: BP 172/70
[2019-02-14 03:38] VITALS: BP 157/70
[2019-02-14] MEDS: IV NORMAL SALINE 1000ML BAG 1,000 ML IV SCH ×2 (05:19→11:25)
[2019-02-14] MEDS: MORPHINE SULFATE 2 MG/ML VIAL. IV PRN (05:20)
[2019-02-14] MEDS: GLIMEPIRIDE 2 MG TABLET. PO SCH (07:20)
[2019-02-14] MEDS: PANTOPRAZOLE IV PUSH 40 MG VIAL. IVP SCH ×2 (07:20→16:30)
[2019-02-14 07:43] VITALS: BP 154/83
[2019-02-14] MEDS: INSULIN LISPRO 300 UNITS/3 ML VIAL. SQ SCH ×2 (08:00→12:00)
[2019-02-14] MEDS: SMZ/TMP 800/160MG TABLET. PO SCH (09:25)
[2019-02-14] MEDS: LACTOBACILLUS RHAMNOSUS GG 1 CAPSULE. PO SCH (09:25)
[2019-02-14] MEDS: ASPIRIN CHEWABLE 81 MG TABLET. PO SCH (09:25)
[2019-02-14] MEDS: LABETALOL HCL 200 MG TABLET PO SCH (09:26)
[2019-02-14] MEDS: amLODIPine BESYLATE 5 MG TABLET PO SCH (09:26)
[2019-02-14] MEDS: ENOXAPARIN 40 MG/0.4 ML SYRINGE. SQ SCH (09:27)
[2019-02-14] MEDS: traMADol 50 MG TABLET PO PRN (09:40)
--- NOTE | 2019-02-14 10:32 | PDOC ---
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 Remote lacunar infarct is noted in the right putamen. Low-attenuation in the periventricular white matter is suggestive of chronic small vessel ischemic changes. Hematemesis - on ASA only, just had recently EGD. consult GI. Multiple falls - was just discharged with home health previously, to ED multiple visits for falls. 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 - no sonographic evidence of deep venous thrombosis involving the visualized deep venous structures of either lower extremity. Failure to thrive MILD HYPERNATREMIA - hypovolemic VOLUME DEPLETED, dehydration Gait instability Multilevel degenerative change throughout the lumbar spine and lower thoracic spine, resulting in stenosis - Grade 1 anterolisthesis of L5 on S1 and retrolisthesis of L2 on L3. ELEVATED ESR Bilateral leg weakness Anemia - likely of chronic disease UTI //mdr URINE CULTURE Final Final report URINE CULTURE RES 1 Final Comment Coagulase negative Staphylococcus species, not Staphylococcus saprophyticus. Greater than 100,000 colony forming units per mL Based on resistance to oxacillin this isolate would be resistant to all currently available beta-lactam antimicrobial agents, with the exception of the newer cephalosporins with anti-MRSA activity, such as Ceftaroline ANTIMICROBIAL SUSCEPTIBILITY Final Comment S = Susceptible; I = Intermediate; R = Resistant P = Positive; N = Negative MICS are expressed in micrograms per mL Antibiotic RSLT#1 RSLT#2 RSLT#3 RSLT#4 Ciprofloxacin R>=8 Gentamicin S =4 Levofloxacin I =4 Linezolid S =1 Nitrofurantoin S<=16 Oxacillin R>=4 Penicillin R>=0.5 Quinupristin/Dalfopristin S<=0.25 Rifampin S<=0.5 Tetracycline S =2 Trimethoprim/Sulfa S<=10 Vancomycin S =2 abdominal pain, slow to improve hyperparathyroidism PPX - PPI, SCDs FULL CODE inpatient for UGIB po bactrim repeat blood culture follow ca ++ BLOOD CULTURE Preliminary NO GROWTH AFTER 4 DAYS ID consult d/c bactrim requires moderate assist, needs snf 32 min pt exam, chart review d/c planning , > 50% of time spent with exam, chart review, pt care coordination History of Present Illness History of Present Illness 02/11/19 Pt seen and examined in ICU Pt seen sitting up with the nurses Pt passed swallow test with speech therapy and has been started on honey thick diet Alert, oriented Hopefully will move patient up to a med floor today Charts and labs reviewed DW RN 02/10/19 Pt seen and examined in the ICU Was sitting upright in chair Accompanied by family Failed swallow test with speech pathology Erosive esophagitis and reflux confirmed by pathology report MRI showed small infarcts and chronic vessel disease DW RN Charts and labs reviewed Vitals Vitals Vital Signs Date Time Temp Pulse Resp B/P (MAP) Pulse Ox O2 Delivery O2 Flow Rate FiO2 02/14/19 09:26 73 154/83 02/14/19 07:43 98.6 20 95 Nasal Cannula 1.5 98.6 Physical Exam Physical Exam NEW RIGHT SIDED WEAKNESS 02/10 General: Alert, Oriented X3, Cooperative, No acute distress Heart: Regular rate (SR), Normal S1, Normal S2, No murmurs Lungs: Clear Abdomen: Normal bowel sounds, Soft, No tenderness, Other (obese) Extremities: No clubbing, No cyanosis, No edema Skin: No breakdown, No significant lesion Labs LABS Laboratory Tests Test 02/13/19 11:03 02/13/19 16:38 02/13/19 21:37 02/14/19 07:28 Glucose (Fingerstick) 248 mg/dL (70-99) 172 mg/dL (70-99) 127 mg/dL (70-99) 129 mg/dL (70-99) Assessment and Plan Assessmemt and Plan Problems Medical Problems: (1) Hypercalcemia Status: Acute (2) Low back pain Status: Acute (3) Nausea and vomiting Status: Acute (4) Uncontrolled diabetes mellitus Status: Acute O.T. Visit Type * Treatment Relevant History * C/o vomiting blood. and 4 episodes of coffee-ground material since last night. Pt transferred to ICU 02/09/19 due to stroke like symptoms. MRI negative for CVA. PMHx Arthritis, Asthma, Diabetes-Type II, Heart Disease, Hypertension, TIA, neuropathy who was seen multiple times recently in ED for falls and bilateral LE weakness. OT Care Provider * Nella Trivedi OTR/L Usual Living Arrangement * Assisted Living Home Environment Type * Apartment Physical Barriers in Home Environment * Level, No Step ADL Assistance Required Prior to Admission * Independent ADL Assistive Devices Used Prior to Admission * Shower Chair Other information - PLOF ADLs * indicates shower chair extends over tub side but unable to lift legs over Mobility Assistance Required Prior to Admission * Independent Mobility devices used prior to admission * Manual Wheelchair Other Information - PLOF Mobility * PLOF Patient's IADLs Prior to Admission * Meal preparation IADL Assistance Provided By * Family Other Prior Level of Function Information * Per discharge information from last admission 01-19-19 Pt and dtr declined SNF stay and pt was discharged directly to [facility] w/ services. Pt indicated had returned home only a day or so ago. Pt also indicated she was not walking at [facility]. Had assist to transfer to w/c as well as to toilet. Mobilized w/c indep to dining zaragoza. Pt did not respond verbally to questions about self care/mobility. Only shook head or nodded. Attempted to reach staff at [facility] but went to voice mail so unable to obtain other information at this time. PLOF from last admission; Dtr does most of IADLs, pt states she cooks only quick easy meals. Pt uses a shower chair if dtr is present to assist, but can Coreen take sponge baths. Dtr does the shopping and either she or a good friend drive her as needed. Weight Bearing Status * Weight Bear as Tolerated Other Precautions * Fall risk Level of Consciousness * Alert * Lethargic Cognition Comments * Interacted appropriately with delayed response time. Communication * Short or one word phrases used to communicate. Other Information - Objective Measures * DIVISIONAL STOREKEEPER assisted with mobilization efforts Activity Tolerance/ Vitals * O2 saturation at 97 on 2 L via nc O2 remained in mid to upper 90s throughout tx. Sitting Balance * 3 balances w/o UEs 1-30s. Standing Balance * 2 balances w/ both UEs Objective Measures Comment * Pt. agreed to therapy. Pt. became diaphoretic prior to transfer. Cool washcloth obtained and nsg. present. Agreed to transfer. Max. A donning socks but pt. did lift feet to help greg. Mod. x 2 supine-sit eob. Completed simple arom x 5 reps ~ 50% range against gravity. CGA X 2 transfer with v/c's for sequencing to recliner. Pt. left in recliner with feet elevated and nsg. present Pain Location * No c/o pain. Did c/o nausea with mobilization efforts. Feeding Comments * thickened liquids Grooming and Hygiene * Supine Toileting * Maximum assist Toileting Comments * hauser Socks/Shoes Dressing * Dependent Socks/Shoes Dressing Comments * Greg socks Bed Mobilty * Two person assist * Moderate assist Therapeutic Activity * Pt agreeable to attempt EOB sitting and ADLs. DIVISIONAL STOREKEEPER present to assist with mobilization efforts. Pt actively particpating with LE and UE movement when cued to do so. It did take Mod A of 2 to acheive EOB sitting. Pt was up for about 1 mintue and then began to c/o of sxs of nausea. Pt returned to supine and RN notified of pts response to mobilization efforts. Functional Limitations ADLs Comments * Limited activity tolerance, weakness, self care bed/functional mobility. Rehab Potential to Achieve Goals * Fair Learning Preferences * One-on-One Instruction * Demonstration * Discussion Factors Facilitating Goal Achievement * Response to training Problem List * Activity Tolerance * Balance * Functional Mobility * Strength * ADL Status * Respiratory Status * Safety awareness Pt/caregiver agree with plan of care * Yes * Decreased Mentation Patient condition at conclusion of therapy * Pt in bed * Call light in reach * Pt denies further needs * RN/DIVISIONAL STOREKEEPER with patient * Visitor with patient Communicated Patient Care With (Name, Title) * SHANNAN Ochoa Goal 1: Pt will tolerate functional activities for * 10min Goal 1 Position: * Bed * Seated Goal 1 Assessment * Appropriate - Continue Goal 2: Pt will be able to complete: * bed mobility Goal 2 Required Assistance Level * Minimum assist Goal 2 Assessment * Appropriate - Continue Goal 3: Pt will be able to complete: * functional transfer Goal 3 Equipment * Front Wheeled Walker Goal 3 Required Assistance Level * Stand-by Assist Goal 3 Assessment * Goal Revised Goal 4 - Pt will be able to complete: * UE dressing Goal 4 Equipment * Front Wheeled Walker Goal 4 Required Assistance Level * Moderate assist * Seated Goal 4 Assessment * Goal Revised Goal 5 - Pt. will be able to complete: * Grooming Goal 5 Required Assistance Level * Contact guard assist * Seated Goal 5 Assessment * Goal Revised Goal 6 * LE dressing w/ min a and devices prn/RW. Goal 6 Assessment * Appropriate - Continue Skilled interventions required to achieve goals * Activity sharyn. training * ADL training/education * Adaptive equip. training * Balance training for ADL * Discharge planning * Functional mobility train * Safety education * Therapeutic Ex. * Transfer training for ADL Discharge Recommendations * Halfway Unit * Retail Beauty Specialist Care Discharge Recommendation - DME * None Discharge Recommendation Comments * Continue to assess progress/need for AD Comment Review of Relevant I have reviewed the following items jorge luis (where applicable) has been applied. Labs Laboratory Tests Test 02/12/19 11:30 02/12/19 16:43 02/12/19 20:27 02/13/19 07:30 Glucose (Fingerstick) 161 mg/dL (70-99) 297 mg/dL (70-99) 211 mg/dL (70-99) 145 mg/dL (70-99) Test 02/13/19 11:03 02/13/19 16:38 02/13/19 21:37 02/14/19 07:28 Glucose (Fingerstick) 248 mg/dL (70-99) 172 mg/dL (70-99) 127 mg/dL (70-99) 129 mg/dL (70-99) Laboratory Tests Test 02/13/19 11:03 02/13/19 16:38 02/13/19 21:37 02/14/19 07:28 Glucose (Fingerstick) 248 mg/dL (70-99) 172 mg/dL (70-99) 127 mg/dL (70-99) 129 mg/dL (70-99) Microbiology 02/09/19 Blood Culture - Preliminary, Resulted NO GROWTH AFTER 4 DAYS 02/08/19 Urine Culture - Final, Complete 02/08/19 Urine Culture Result 1 (REECE) - Final, Complete 02/08/19 Antimicrobic Susceptibility - Final, Complete Medications Current Medications Sodium Chloride 1,000 ml @ 1,000 mls/hr 1X ONCE IV Last administered on 02/07/19at 07:45; Start 02/07/19 at 06:30; Stop 02/07/19 at 07:29; Status DC Pantoprazole Sodium (PROTONIX VIAL for IV PUSH) 40 mg 1X ONCE IVP Last administered on 02/07/19at 07:42; Start 02/07/19 at 06:30; Stop 02/07/19 at 06:31; Status DC Albuterol/ Ipratropium (Duoneb) 3 ml 1X ONCE NEB Last administered on 02/07/19at 07:43; Start 02/07/19 at 07:30; Stop 02/07/19 at 07:31; Status DC Fentanyl Citrate (Fentanyl 2ml Vial) 50 mcg 1X ONCE IVP Last administered on 02/07/19at 08:01; Start 02/07/19 at 08:00; Stop 02/07/19 at 08:01; Status DC Ondansetron HCl (Zofran) 4 mg 1X ONCE IV Last administered on 02/07/19at 08:00; Start 02/07/19 at 08:00; Stop 02/07/19 at 08:01; Status DC Fentanyl Citrate (Fentanyl 2ml Vial) 50 mcg 1X ONCE IVP Last administered on 02/07/19at 08:40; Start 02/07/19 at 08:15; Stop 02/07/19 at 08:24; Status DC Ondansetron HCl (Zofran) 4 mg PRN Q8HRS PRN IV NAUSEA/VOMITING Last administered on 02/08/19at 07:57; Start 02/07/19 at 08:15; Stop 02/08/19 at 08:14; Status DC Sodium Chloride 1,000 ml @ 150 mls/hr Q6H40M IV Last administered on 02/08/19at 07:07; Start 02/07/19 at 08:09; Stop 02/08/19 at 08:08; Status DC Morphine Sulfate (Morphine Sulfate) 4 mg 1X ONCE IM Last administered on 02/07at 08:53; Start 02/07/19 at 08:45; Stop 02/07/19 at 08:48; Status DC Prochlorperazine Edisylate (Compazine) 5 mg 1X ONCE IM Last administered on 02/07/19at 08:52; Start 02/07/19 at 08:45; Stop 02/07/19 at 08:48; Status DC Amlodipine Besylate (Norvasc) 5 mg DAILY PO Last administered on 02/12/19at 09:20; Start 02/07/19 at 10:00; Stop 02/12/19 at 16:44; Status DC Aspirin (Children'S Aspirin) 81 mg DAILYWBKFT PO Last administered on 02/07/19at 10:45; Start 02/07/19 at 10:00; Stop 02/07/19 at 15:05; Status DC Tramadol HCl (Ultram) 50 mg PRN Q6HRS PRN PO MILD TO MODERATE PAIN Last administered on 02/14/19at 09:40; Start 02/07/19 at 11:00 Hydromorphone HCl (Dilaudid) 1 mg PRN Q4HRS PRN IV SEVERE PAIN Last administered on 02/13/19at 19:59; Start 02/07/19 at 11:00 Hydralazine HCl (Apresoline Inj) 10 mg PRN Q4HRS PRN IVP ELEVATED BP, SEE COMMENTS Last administered on 02/11/19at 16:00; Start 02/07/19 at 15:15 Ondansetron HCl (Zofran) 4 mg PRN Q6HRS PRN IVP NAUSEA/VOMITING Last administered on 02/13/19at 17:45; Start 02/07/19 at 15:15 Midazolam HCl (Versed) 2 mg PRN 1X PRN IV PRIOR TO PROCEDURE; Start 02/08/19 at 10:45; Stop 02/09/19 at 10:44; Status DC Fentanyl Citrate (Fentanyl 2ml Vial) 25 mcg PRN Q5MIN PRN IV X 2 DOSES FOR PAIN; Start 02/08/19 at 10:45; Stop 02/09/19 at 10:44; Status DC Fentanyl Citrate (Fentanyl 2ml Vial) 50 mcg PRN Q5MIN PRN IV X 2 DOSES FOR PAIN; Start 02/08/19 at 10:45; Stop 02/09/19 at 10:44; Status DC Ringer's Solution 1,000 ml @ 125 mls/hr Q8H IV Last administered on 02/08/19at 12:10; Start 02/08/19 at 10:39; Stop 02/08/19 at 22:38; Status DC Lidocaine HCl (Xylocaine-Mpf 1% 2ml Vial) 2 ml 1X PRN PRN ID IV START; Start 02/08/19 at 10:45; Stop 02/09/19 at 10:44; Status DC Propofol 20 ml @ As Directed STK-MED ONCE IV ; Start 02/08/19 at 13:16; Stop 02/08/19 at 13:17; Status DC Lidocaine HCl (Lidocaine Pf 2% Vial) 5 ml STK-MED ONCE .ROUTE ; Start 02/08/19 at 13:16; Stop 02/08/19 at 13:17; Status DC Pantoprazole Sodium (Protonix) 40 mg DAILYAC PO Last administered on 02/08/19at 14:41; Start 02/08/19 at 15:00; Stop 02/09/19 at 11:00; Status DC Clonidine HCl (Catapres Tts-2) 1 patch WEEKLY TD ; Start 02/09/19 at 09:00; Stop 02/08/19 at 17:56; Status DC Clonidine HCl (Catapres Tts-2) 1 patch WEEKLY TD Last administered on 02/08/19at 18:13; Start 02/08/19 at 18:00 Metoprolol Tartrate (Lopressor Vial) 5 mg Q6HRS IVP Last administered on 02/09/19at 12:51; Start 02/09/19 at 00:15; Stop 02/09/19 at 12:59; Status DC Influenza Virus Vaccine Quadrival (Afluria Quad 2019-20 (3yr Up) Syringe) 0.5 ml ONCE ONCE VAX IM ; Start 02/09/19 at 09:00; Stop 02/09/19 at 09:01; Status DC Pantoprazole Sodium (PROTONIX VIAL for IV PUSH) 40 mg DAILYAC IVP Last administered on 02/10/19at 10:08; Start 02/09/19 at 11:01; Stop 02/10/19 at 13:05; Status DC Piperacillin Sod/ Tazobactam Sod 3.375 gm/Sodium Chloride 50 ml @ 100 mls/hr Q6HRS IV Last administered on 02/13/19at 12:28; Start 02/09/19 at 12:00; Stop 02/13/19 at 14:07; Status DC Ondansetron HCl (Zofran) 4 mg PRN Q6HRS PRN IV NAUSEA/VOMITING; Start 02/09/19 at 11:30; Stop 02/09/19 at 11:32; Status DC Prochlorperazine (Compazine) 25 mg PRN Q12HR PRN VA NAUSEA/VOMITING; Start 02/09/19 at 11:30 Famotidine (Pepcid Vial) 20 mg BID IVP ; Start 02/09/19 at 21:00; Stop 02/09/19 at 11:30; Status DC Enoxaparin Sodium (Lovenox 40mg Syringe) 40 mg Q12HR SQ Last administered on 02/14/19at 09:27; Start 02/09/19 at 21:00 Sodium Chloride (Normal Saline Flush) 3 ml QSHIFT PRN IV AFTER MEDS AND BLOOD DRAWS; Start 02/09/19 at 11:30 Sodium Chloride 1,000 ml @ 100 mls/hr Q10H IV Last administered on 02/14/19at 05:19; Start 02/09/19 at 11:25 Bisacodyl (Dulcolax Supp) 10 mg PRN DAILY PRN VA CONSTIPATION; Start 02/09/19 at 11:30 Labetalol HCl (Normodyne Iv Push) 20 mg Q4HRS IVP Last administered on 02/11/19 09:33; Start 02/09/19 at 13:00; Stop 02/11/19 at 15:28; Status DC Nicardipine HCl 50 mg/Sodium Chloride 250 ml @ 25 mls/hr CONT PRN IV SEE I/O RECORD Last administered on 02/09/19at 17:42; Start 02/09/19 at 17:15; Stop 02/11/19 at 16:50; Status DC Morphine Sulfate (Morphine Sulfate) 2 mg PRN Q2HR PRN IV MODERATE PAIN Last administered on 02/14/19at 05:20; Start 02/09/19 at 20:15 Lactobacillus Rhamnosus (Culturelle) 1 cap BID PO Last administered on 02/14/19 09:25; Start 02/10/19 at 21:00 Aspirin (Children'S Aspirin) 81 mg DAILYWBKFT PO Last administered on 02/14/19at 09:25; Start 02/11/19 at 08:00 Pantoprazole Sodium (PROTONIX VIAL for IV PUSH) 40 mg BIDAC IVP Last administered on 02/14/19at 07:20; Start 02/10/19 at 16:30 Diphenhydramine HCl (Benadryl) 12.5 mg PRN QHS PRN IVP ITCHING Last administered on 02/13/19 13:29; Start 02/10/19 at 19:45 Phenyleph/Shark Oil/Min Oil/Petrol (Preparation H) 1 kristin PRN QID PRN RC RECTAL PAIN Last administered on 02/10/19 20:18; Start 02/10/19 at 20:00 Lorazepam (Ativan Inj) 1 mg PRN QHS PRN IVP ANXIETY / AGITATION Last administered on 02/11/19 00:56; Start 02/11/19 at 01:00 Labetalol HCl (Trandate) 200 mg BID PO Last administered on 02/14/19 09:26; Start 02/11/19 at 21:00 Atorvastatin Calcium (Lipitor) 10 mg QHS PO Last administered on 02/13/19 20:44; Start 02/11/19 at 21:00 Amlodipine Besylate (Norvasc) 5 mg BID PO Last administered on 02/14/19 09:26; Start 02/12/19 at 21:00 Glimepiride (Amaryl) 2 mg [id number] PO Last administered on 02/14/19 07:20; Start 02/13/19 at 07:00 Insulin Human Lispro (HumaLOG) 0-5 UNITS TIDWMEALS SQ Last administered on 02/13/19 17:53; Start 02/13/19 at 08:00 Dextrose (Dextrose 50%-Water Syringe) 12.5 gm PRN Q15MIN PRN IV SEE COMMENTS; Start 02/12/19 at 18:45 Trimethoprim/ Sulfamethoxazole (Bactrim Ds) 1 tab BID PO Last administered on 02/14/19 09:25; Start 02/13/19 at 14:30 Active Scripts Active Vitamin D3 (Cholecalciferol (Vitamin D3)) 5,000 Unit Capsule 5,000 Unit PO DAILY 30 Days Miralax (Polyethylene Glycol 3350) 17 Gm Powd.pack 1 Packet PO DAILY Lyrica (Pregabalin) 100 Mg Capsule 1 Cap PO BID 30 Days Reported Percocet 7.5-325 Mg Tablet (Oxycodone/Acetaminophen) 1 Each Tablet 2 Tab PO PRN TID PRN Proair Hfa Inhaler (Albuterol Sulfate) 8.5 Gm Hfa.aer.ad 2 Puff INH PRN Q6HRS PRN Amitriptyline Hcl 10 Mg Tablet 6 Tab PO QHS Glimepiride 4 Mg Tablet 1 Tab PO DAILYWBKFT Compazine (Prochlorperazine Maleate) 10 Mg Tablet 10 Mg PO PRN Q8HRS PRN Diclofenac Sodium 75 Mg Tablet.dr 1 Tab PO BID Pravastatin Sodium 40 Mg Tablet 1 Tab PO QHS Clonidine Hcl 0.3 Mg Tablet 1 Tab PO BID Labetalol Hcl 200 Mg Tablet 1 Tab PO BID Vitals/I & O Vital Sign - Last 24 Hours 02/13/19 02/13/19 02/13/19 02/13/19 11:00 11:21 11:23 12:25 Temp 98.4 98.4 Pulse 70 Resp 24 B/P (MAP) 130/67 (88) Pulse Ox 99 100 100 100 O2 Delivery Nasal Cannula Nasal Cannula Nasal Cannula Nasal Cannula O2 Flow Rate 1.5 2.0 2.0 2.0 02/13/19 02/13/19 02/13/19 02/13/19 15:00 15:15 15:55 19:53 Temp 98.6 98.8 98.6 98.8 Pulse 63 64 Resp 16 16 B/P (MAP) 168/90 (116) 146/70 (95) Pulse Ox 98 100 100 98 O2 Delivery Nasal Cannula Nasal Cannula Nasal Cannula Nasal Cannula O2 Flow Rate 1.5 2.0 2.0 1.5 02/13/19 02/13/19 02/13/19 02/13/19 20:00 20:43 20:44 23:15 Temp 98.8 98.8 Pulse 64 64 69 Resp 16 B/P (MAP) 146/70 146/70 172/70 (104) Pulse Ox 96 O2 Delivery Nasal Cannula Nasal Cannula O2 Flow Rate 2.0 1.5 02/14/19 02/14/19 02/14/19 02/14/19 03:38 07:43 09:26 09:26 Temp 98.3 98.6 98.3 98.6 Pulse 63 73 73 73 Resp 16 20 B/P (MAP) 157/70 (99) 154/83 (106) 154/83 154/83 Pulse Ox 98 95 O2 Delivery Nasal Cannula Nasal Cannula O2 Flow Rate 1.5 1.5 Intake and Output 02/13/19 02/13/19 02/14/19 14:59 22:59 06:59 Intake Total 650 ml 480 ml Output Total 850 ml 1900 ml Balance -200 ml 480 ml -1900 ml BLAYNE MILES MD Feb 14, 2019 10:32
--- NOTE | 2019-02-14 10:53 | PDOC ---
Infectious Disease Note Vital Sign Vital Signs Vital Signs Date Time Temp Pulse Resp B/P (MAP) Pulse Ox O2 Delivery O2 Flow Rate FiO2 02/14/19 09:26 73 154/83 02/14/19 07:43 98.6 20 95 Nasal Cannula 1.5 98.6 Labs Lab Laboratory Tests Test 02/13/19 11:03 02/13/19 16:38 02/13/19 21:37 02/14/19 07:28 Glucose (Fingerstick) 248 mg/dL (70-99) 172 mg/dL (70-99) 127 mg/dL (70-99) 129 mg/dL (70-99) Micro 02/09/19 Blood Culture - Preliminary, Resulted NO GROWTH AFTER 4 DAYS URINE CULTURE RES 1 Final Comment Coagulase negative Staphylococcus species, not Staphylococcus saprophyticus. Greater than 100,000 colony forming units per mL Based on resistance to oxacillin this isolate would be resistant to all currently available beta-lactam antimicrobial agents, with the exception of the newer cephalosporins with anti-MRSA activity, such as Ceftaroline ANTIMICROBIAL SUSCEPTIBILITY Final Comment S = Susceptible; I = Intermediate; R = Resistant P = Positive; N = Negative MICS are expressed in micrograms per mL Antibiotic RSLT#1 RSLT#2 RSLT#3 RSLT#4 Ciprofloxacin R>=8 Gentamicin S =4 Levofloxacin I =4 Linezolid S =1 Nitrofurantoin S<=16 Oxacillin R>=4 Penicillin R>=0.5 Quinupristin/Dalfopristin S<=0.25 Rifampin S<=0.5 Tetracycline S =2 Trimethoprim/Sulfa S<=10 Vancomycin S =2 Objective Assessment Pyruia w/ growth of MRSE, 02/08. UA contaminated, + squamous cells Acute MS change. CT neg - better Erosive esophigitis HTN DM II h/o CVA Plan Plan of Care D/c Bactrim. MRSE not typically considered urological pathogen Previously on Zosyn (02/09-) D/c Armenta if not needed Thank you [id number] Attending Co-Sign The patient was seen and interviewed as well as examined at the bedside. The chart was reviewed. The case was discussed. Agree with the plan of care. TJ NOVA APRN Feb 14, 2019 10:53 ANDREEA GALE MD Feb 14, 2019 12:15
--- NOTE | 2019-02-14 11:07 | PDOC3 ---
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 Re mote lacunar infarct is noted in the right putamen. Low-attenuation in the periventricular white matter is suggestive of chronic small vessel ischemic changes. Hematemesis - on ASA only, just had recently EGD. consult GI. Multiple falls - was just discharged with home health previously, to ED multiple visits for falls. 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 - no sonographic evidence of deep venous thrombosis involving the visualized deep venous structures of either lower extremity. Failure to thrive MILD HYPERNATREMIA - hypovolemic VOLUME DEPLETED, dehydration Gait instability Multilevel degenerative change throughout the lumbar spine and lower thoracic spine, resulting in stenosis - Grade 1 anterolisthesis of L5 on S1 and retrolisthesis of L2 on L3. ELEVATED ESR Bilateral leg weakness Anemia - likely of chronic disease UTI //mdr URINE CULTURE Final Final report URINE CULTURE RES 1 Final Comment Coagulase negative Staphylococcus species, not Staphylococcus saprophyticus. Greater than 100,000 colony forming units per mL Based on resistance to oxacillin this isolate would be resistant to all currently available beta-lactam antimicrobial agents, with the exception of the newer cephalosporins with anti-MRSA activity, such as Ceftaroline ANTIMICROBIAL SUSCEPTIBILITY Final Comment S = Susceptible; I = Intermediate; R = Resistant P = Positive; N = Negative MICS are expressed in micrograms per mL Antibiotic RSLT#1 RSLT#2 RSLT#3 RSLT#4 Ciprofloxacin R>=8 Gentamicin S =4 Levofloxacin I =4 Linezolid S =1 Nitrofurantoin S<=16 Oxacillin R>=4 Penicillin R>=0.5 Quinupristin/Dalfopristin S<=0.25 Rifampin S<=0.5 Tetracycline S =2 Trimethoprim/Sulfa S<=10 Vancomycin S =2 abdominal pain, slow to improve hyperparathyroidism PPX - PPI, SCDs FULL CODE inpatient for UGIB po bactrim repeat blood culture follow ca ++ BLOOD CULTURE Preliminary NO GROWTH AFTER 4 DAYS ID consult d/c bactrim requires moderate assist, needs snf Feeding Comments * thickened liquids 32 min pt exam, chart review d/c planning , > 50% of time spent with exam, chart review, pt care coordination History of Present Illness History of Present Illness 02/11/19 Pt seen and examined in ICU Pt seen sitting up with the nurses Pt passed swallow test with speech therapy and has been started on honey thick diet Alert, oriented Hopefully will move patient up to a med floor today Charts and labs reviewed ROBIN RN 02/10/19 Pt seen and examined in the ICU Was sitting upright in chair Accompanied by family Failed swallow test with speech pathology Erosive esophagitis and reflux confirmed by pathology report MRI showed small infarcts and chronic vessel disease ROBIN RN Charts and labs reviewed Vitals Vitals Vital Signs Date Time Temp Pulse Resp B/P (MAP) Pulse Ox O2 Delivery O2 Flow Rate FiO2 02/14/19 09:26 73 154/83 02/14/19 07:43 98.6 20 95 Nasal Cannula 1.5 98.6 Physical Exam Physical Exam NEW RIGHT SIDED WEAKNESS 02/10 General: Alert, Oriented X3, Cooperative, No acute distress Heart: Regular rate (SR), Normal S1, Normal S2, No murmurs Lungs: Clear Abdomen: Normal bowel sounds, Soft, No tenderness, Other (obese) Extremities: No clubbing, No cyanosis, No edema Skin: No breakdown, No significant lesion Labs LABS Laboratory Tests Test 02/13/19 11:03 02/13/19 16:38 02/13/19 21:37 02/14/19 07:28 Glucose (Fingerstick) 248 mg/dL (70-99) 172 mg/dL (70-99) 127 mg/dL (70-99) 129 mg/dL (70-99) Assessment and Plan Assessmemt and Plan Problems Medical Problems: (1) Hypercalcemia Status: Acute (2) Low back pain Status: Acute (3) Nausea and vomiting Status: Acute (4) Uncontrolled diabetes mellitus Status: Acute O.T. Visit Type * Treatment Relevant History * C/o vomiting blood. and 4 episodes of coffee-ground material since last night. Pt transferred to ICU 02/09/19 due to stroke like symptoms. MRI negative for CVA. PMHx Arthritis, Asthma, Diabetes-Type II, Heart Disease, Hypertension, TIA, neuropathy who was seen multiple times recently in ED for falls and bilateral LE weakness. OT Care Provider * Nella Trivedi OTR/L Usual Living Arrangement * Assisted Living Home Environment Type * Apartment Physical Barriers in Home Environment * Level, No Step ADL Assistance Required Prior to Admission * Independent ADL Assistive Devices Used Prior to Admission * Shower Chair Other information - PLOF ADLs * indicates shower chair extends over tub side but unable to lift legs over Mobility Assistance Required Prior to Admission * Independent Mobility devices used prior to admission * Manual Wheelchair Other Information - PLOF Mobility * PLOF Patient's IADLs Prior to Admission * Meal preparation IADL Assistance Provided By * Family Other Prior Level of Function Information * Per discharge information from last admission 01-19-19 Pt and dtr declined SNF stay and pt was discharged directly to [facility] w/ services. Pt indicated had returned home only a day or so ago. Pt also indicated she was not walking at [facility]. Had assist to transfer to w/c as well as to toilet. Mobilized w/c indep to dining zaragoza. Pt did not respond verbally to questions about self care/mobility. Only shook head or nodded. Attempted to reach staff at [facility] but went to voice mail so unable to obtain other information at this time. PLOF from last admission; Dtr does most of IADLs, pt states she cooks only quick easy meals. Pt uses a shower chair if dtr is present to assist, but can Coreen take sponge baths. Dtr does the shopping and either she or a good friend drive her as needed. Weight Bearing Status * Weight Bear as Tolerated Other Precautions * Fall risk Level of Consciousness * Alert * Lethargic Cognition Comments * Interacted appropriately with delayed response time. Communication * Short or one word phrases used to communicate. Other Information - Objective Measures * LABORER [employer]ES assisted with mobilization efforts Activity Tolerance/ Vitals * O2 saturation at 97 on 2 L via nc O2 remained in mid to upper 90s throughout tx. Sitting Balance * 3 balances w/o UEs 1-30s. Standing Balance * 2 balances w/ both UEs Objective Measures Comment * Pt. agreed to therapy. Pt. became diaphoretic prior to transfer. Cool washcloth obtained and nsg. present. Agreed to transfer. Max. A donning socks but pt. did lift feet to help greg. Mod. x 2 supine-sit eob. Completed simple arom x 5 reps ~ 50% range against gravity. CGA X 2 transfer with v/c's for sequencing to recliner. Pt. left in recliner with feet elevated and nsg. present Pain Location * No c/o pain. Did c/o nausea with mobilization efforts. Feeding Comments * thickened liquids Grooming and Hygiene * Supine Toileting * Maximum assist Toileting Comments * hauser Socks/Shoes Dressing * Dependent Socks/Shoes Dressing Comments * Greg socks Bed Mobilty * Two person assist * Moderate assist Therapeutic Activity * Pt agreeable to attempt EOB sitting and ADLs. LABORER STORES present to assist with mobilization efforts. Pt actively particpating with LE and UE movement when cued to do so. It did take Mod A of 2 to acheive EOB sitting. Pt was up for about 1 mintue and then began to c/o of sxs of nausea. Pt returned to supine and RN notified of pts response to mobilization efforts. Functional Limitations ADLs Comments * Limited activity tolerance, weakness, self care bed/functional mobility. Rehab Potential to Achieve Goals * Fair Learning Preferences * One-on-One Instruction * Demonstration * Discussion Factors Facilitating Goal Achievement * Response to training Problem List * Activity Tolerance * Balance * Functional Mobility * Strength * ADL Status * Respiratory Status * Safety awareness Pt/caregiver agree with plan of care * Yes * Decreased Mentation Patient condition at conclusion of therapy * Pt in bed * Call light in reach * Pt denies further needs * RN/LABORER STORES with patient * Visitor with patient Communicated Patient Care With (Name, Title) * SHANNAN Ochoa Goal 1: Pt will tolerate functional activities for * 10min Goal 1 Position: * Bed * Seated Goal 1 Assessment * Appropriate - Continue Goal 2: Pt will be able to complete: * bed mobility Goal 2 Required Assistance Level * Minimum assist Goal 2 Assessment * Appropriate - Continue Goal 3: Pt will be able to complete: * functional transfer Goal 3 Equipment * Front Wheeled Walker Goal 3 Required Assistance Level * Stand-by Assist Goal 3 Assessment * Goal Revised Goal 4 - Pt will be able to complete: * UE dressing Goal 4 Equipment * Front Wheeled Walker Goal 4 Required Assistance Level * Moderate assist * Seated Goal 4 Assessment * Goal Revised Goal 5 - Pt. will be able to complete: * Grooming Goal 5 Required Assistance Level * Contact guard assist * Seated Goal 5 Assessment * Goal Revised Goal 6 * LE dressing w/ min a and devices prn/RW. Goal 6 Assessment * Appropriate - Continue Skilled interventions required to achieve goals * Activity sharyn. training * ADL training/education * Adaptive equip. training * Balance training for ADL * Discharge planning * Functional mobility train * Safety education * Therapeutic Ex. * Transfer training for ADL Discharge Recommendations * [facility] Unit * Picture Painter Care FINAL DIAGNOSIS Problems Medical Problems: (1) Hypercalcemia Status: Acute (2) Low back pain Status: Acute (3) Nausea and vomiting Status: Acute (4) Uncontrolled diabetes mellitus Status: Acute Brief Hospital Course Ms. Massey is a 74 old [sex] who presented with [ cva] CONDITION AT DISCHARGE: Improved Discharge Medications Current Medications Sodium Chloride 1,000 ml @ 1,000 mls/hr 1X ONCE IV Last administered on 02/07/19at 07:45; Start 02/07/19 at 06:30; Stop 02/07/19 at 07:29; Status DC Pantoprazole Sodium (PROTONIX VIAL for IV PUSH) 40 mg 1X ONCE IVP Last administered on 02/07/19at 07:42; Start 02/07/19 at 06:30; Stop 02/07/19 at 06:31; Status DC Albuterol/ Ipratropium (Duoneb) 3 ml 1X ONCE NEB Last administered on 02/07/19 at 07:43; Start 02/07/19 at 07:30; Stop 02/07/19 at 07:31; Status DC Fentanyl Citrate (Fentanyl 2ml Vial) 50 mcg 1X ONCE IVP Last administered on 02/07/19at 08:01; Start 02/07/19 at 08:00; Stop 02/07/19 at 08:01; Status DC Ondansetron HCl (Zofran) 4 mg 1X ONCE IV Last administered on 02/07/19at 08:00; Start 02/07/19 at 08:00; Stop 02/07/19 at 08:01; Status DC Fentanyl Citrate (Fentanyl 2ml Vial) 50 mcg 1X ONCE IVP Last administered on 02/07/19 08:40; Start 02/07/19 at 08:15; Stop 02/07/19 at 08:24; Status DC Ondansetron HCl (Zofran) 4 mg PRN Q8HRS PRN IV NAUSEA/VOMITING Last administered on 02/08/19 07:57; Start 02/07/19 at 08:15; Stop 02/08/19 at 08:14; Status DC Sodium Chloride 1,000 ml @ 150 mls/hr Q6H40M IV Last administered on 02/08/19 07:07; Start 02/07/19 at 08:09; Stop 02/08/19 at 08:08; Status DC Morphine Sulfate (Morphine Sulfate) 4 mg 1X ONCE IM Last administered on 02/07/19 08:53; Start 02/07/19 at 08:45; Stop 02/07/19 at 08:48; Status DC Prochlorperazine Edisylate (Compazine) 5 mg 1X ONCE IM Last administered on 02/07/19 08:52; Start 02/07/19 at 08:45; Stop 02/07/19 at 08:48; Status DC Amlodipine Besylate (Norvasc) 5 mg DAILY PO Last administered on 02/12/19 09:20; Start 02/07/19 at 10:00; Stop 02/12/19 at 16:44; Status DC Aspirin (Children'S Aspirin) 81 mg DAILYWBKFT PO Last administered on 02/07/19at 10:45; Start 02/07/19 at 10:00; Stop 02/07/19 at 15:05; Status DC Tramadol HCl (Ultram) 50 mg PRN Q6HRS PRN PO MILD TO MODERATE PAIN Last administered on 02/14/19 09:40; Start 02/07/19 at 11:00 Hydromorphone HCl (Dilaudid) 1 mg PRN Q4HRS PRN IV SEVERE PAIN Last administered on 02/13/19 19:59; Start 02/07/19 at 11:00 Hydralazine HCl (Apresoline Inj) 10 mg PRN Q4HRS PRN IVP ELEVATED BP, SEE COMMENTS Last administered on 02/11/19 16:00; Start 02/07/19 at 15:15 Ondansetron HCl (Zofran) 4 mg PRN Q6HRS PRN IVP NAUSEA/VOMITING Last administered on 02/13/19at 17:45; Start 02/07/19 at 15:15 Midazolam HCl (Versed) 2 mg PRN 1X PRN IV PRIOR TO PROCEDURE; Start 02/08/19 at 10:45; Stop 02/09/19 at 10:44; Status DC Fentanyl Citrate (Fentanyl 2ml Vial) 25 mcg PRN Q5MIN PRN IV X 2 DOSES FOR PAIN; Start 02/08/19 at 10:45; Stop 02/09/19 at 10:44; Status DC Fentanyl Citrate (Fentanyl 2ml Vial) 50 mcg PRN Q5MIN PRN IV X 2 DOSES FOR PAIN; Start 02/08/19 at 10:45; Stop 02/09/19 at 10:44; Status DC Ringer's Solution 1,000 ml @ 125 mls/hr Q8H IV Last administered on 02/08/19at 12:10; Start 02/08/19 at 10:39; Stop 02/08/19 at 22:38; Status DC Lidocaine HCl (Xylocaine-Mpf 1% 2ml Vial) 2 ml 1X PRN PRN ID IV START; Start 02/08/19 at 10:45; Stop 02/09/19 at 10:44; Status DC Propofol 20 ml @ As Directed STK-MED ONCE IV ; Start 02/08/19 at 13:16; Stop 02/08/19 at 13:17; Status DC Lidocaine HCl (Lidocaine Pf 2% Vial) 5 ml STK-MED ONCE .ROUTE ; Start 02/08/19 at 13:16; Stop 02/08/19 at 13:17; Status DC Pantoprazole Sodium (Protonix) 40 mg DAILYAC PO Last administered on 02/08/19at 14:41; Start 02/08/19 at 15:00; Stop 02/09/19 at 11:00; Status DC Clonidine HCl (Catapres Tts-2) 1 patch WEEKLY TD ; Start 02/09/19 at 09:00; Stop 02/08/19 at 17:56; Status DC Clonidine HCl (Catapres Tts-2) 1 patch WEEKLY TD Last administered on 02/08/19at 18:13; Start 02/08/19 at 18:00 Metoprolol Tartrate (Lopressor Vial) 5 mg Q6HRS IVP Last administered on 1 at 12:51; Start 02/09/19 at 00:15; Stop 02/09/19 at 12:59; Status DC Influenza Virus Vaccine Quadrival (Afluria Quad 2019-20 (3yr Up) Syringe) 0.5 ml ONCE ONCE VAX IM ; Start 02/09/19 at 09:00; Stop 02/09/19 at 09:01; Status DC Pantoprazole Sodium (PROTONIX VIAL for IV PUSH) 40 mg DAILYAC IVP Last administered on 02/10/19at 10:08; Start 02/09/19 at 11:01; Stop 02/10/19 at 1 3:05; Status DC Piperacillin Sod/ Tazobactam Sod 3.375 gm/Sodium Chloride 50 ml @ 100 mls/hr Q6HRS IV Last administered on 02/13/19at 12:28; Start 02/09/19 at 12:00; Stop 02/13/19 at 14:07; Status DC Ondansetron HCl (Zofran) 4 mg PRN Q6HRS PRN IV NAUSEA/VOMITING; Start 02/09/19 at 11:30; Stop 02/09/19 at 11:32; Status DC Prochlorperazine (Compazine) 25 mg PRN Q12HR PRN WI NAUSEA/VOMITING; Start 02/09/19 at 11:30 Famotidine (Pepcid Vial) 20 mg BID IVP ; Start 02/09/19 at 21:00; Stop 02/09/19 at 11:30; Status DC Enoxaparin Sodium (Lovenox 40mg Syringe) 40 mg Q12HR SQ Last administered on 02/14/19at 09:27; Start 02/09/19 at 21:00 Sodium Chloride (Normal Saline Flush) 3 ml QSHIFT PRN IV AFTER MEDS AND BLOOD DRAWS; Start 02/09/19 at 11:30 Sodium Chloride 1,000 ml @ 100 mls/hr Q10H IV Last administered on 02/14/19at 05:19; Start 02/09/19 at 11:25 Bisacodyl (Dulcolax Supp) 10 mg PRN DAILY PRN WI CONSTIPATION; Start 02/09/19 at 11:30 Labetalol HCl (Normodyne Iv Push) 20 mg Q4HRS IVP Last administered on 02/11/19 09:33; Start 02/09/19 at 13:00; Stop 02/11/19 at 15:28; Status DC Nicardipine HCl 50 mg/Sodium Chloride 250 ml @ 25 mls/hr CONT PRN IV SEE I/O RECORD Last administered on 02/09/19 17:42; Start 02/09/19 at 17:15; Stop 02/11/19 at 16:50; Status DC Morphine Sulfate (Morphine Sulfate) 2 mg PRN Q2HR PRN IV MODERATE PAIN Last administered on 02/14/19 05:20; Start 02/09/19 at 20:15 Lactobacillus Rhamnosus (Culturelle) 1 cap BID PO Last administered on 02/14/19 09:25; Start 02/10/19 at 21:00 Aspirin (Children'S Aspirin) 81 mg DAILYWBKFT PO Last administered on 02/14/19 09:25; Start 02/11/19 at 08:00 Pantoprazole Sodium (PROTONIX VIAL for IV PUSH) 40 mg BIDAC IVP Last administered on 02/14/19 07:20; Start 02/10/19 at 16:30 Diphenhydramine HCl (Benadryl) 12.5 mg PRN QHS PRN IVP ITCHING Last administered on 02/13/19 13:29; Start 02/10/19 at 19:45 Phenyleph/Shark Oil/Min Oil/Petrol (Preparation H) 1 kristin PRN QID PRN RC RECTAL PAIN Last administered on 02/10/19 20:18; Start 02/10/19 at 20:00 Lorazepam (Ativan Inj) 1 mg PRN QHS PRN IVP ANXIETY / AGITATION Last administered on 02/11/19 00:56; Start 02/11/19 at 01:00 Labetalol HCl (Trandate) 200 mg BID PO Last administered on 02/14/19 09:26; Start 02/11/19 at 21:00 Atorvastatin Calcium (Lipitor) 10 mg QHS PO Last administered on 02/13/19 20:44; Start 02/11/19 at 21:00 Amlodipine Besylate (Norvasc) 5 mg BID PO Last administered on 02/14/19 09:26; Start 02/12/19 at 21:00 Glimepiride (Amaryl) 2 mg BID76 PO Last administered on 02/14/19at 07:20; Start 02/13/19 at 07:00 Insulin Human Lispro (HumaLOG) 0-5 UNITS TIDWMEALS SQ Last administered on 02/13/19at 17:53; Start 02/13/19 at 08:00 Dextrose (Dextrose 50%-Water Syringe) 12.5 gm PRN Q15MIN PRN IV SEE COMMENTS; Start 02/12/19 at 18:45 Trimethoprim/ Sulfamethoxazole (Bactrim Ds) 1 tab BID PO Last administered on 02/14/19 09:25; Start 02/13/19 at 14:30; Stop 02/14/19 at 10:48; Status DC Active Scripts Active Vitamin D3 (Cholecalciferol (Vitamin D3)) 5,000 Unit Capsule 5,000 Unit PO DAILY 30 Days Miralax (Polyethylene Glycol 3350) 17 Gm Powd.pack 1 Packet PO DAILY Lyrica (Pregabalin) 100 Mg Capsule 1 Cap PO BID 30 Days Reported Percocet 7.5-325 Mg Tablet (Oxycodone/Acetaminophen) 1 Each Tablet 2 Tab PO PRN TID PRN Proair Hfa Inhaler (Albuterol Sulfate) 8.5 Gm Hfa.aer.ad 2 Puff INH PRN Q6HRS PRN Amitriptyline Hcl 10 Mg Tablet 6 Tab PO QHS Glimepiride 4 Mg Tablet 1 Tab PO DAILYWBKFT Compazine (Prochlorperazine Maleate) 10 Mg Tablet 10 Mg PO PRN Q8HRS PRN Diclofenac Sodium 75 Mg Tablet.dr 1 Tab PO BID Pravastatin Sodium 40 Mg Tablet 1 Tab PO QHS Clonidine Hcl 0.3 Mg Tablet 1 Tab PO BID Labetalol Hcl 200 Mg Tablet 1 Tab PO BID Vital Signs Vital Signs Date Time Temp Pulse Resp B/P (MAP) Pulse Ox O2 Delivery O2 Flow Rate FiO2 02/14/19 09:26 73 154/83 02/14/19 07:43 98.6 20 95 Nasal Cannula 1.5 98.6 Labs Laboratory Tests Test 02/12/19 11:30 02/12/19 16:43 02/12/19 20:27 02/13/19 07:30 Glucose (Fingerstick) 161 mg/dL (70-99) 297 mg/dL (70-99) 211 mg/dL (70-99) 145 mg/dL (70-99) Test 02/13/19 11:03 02/13/19 16:38 02/13/19 21:37 02/14/19 07:28 Glucose (Fingerstick) 248 mg/dL (70-99) 172 mg/dL (70-99) 127 mg/dL (70-99) 129 mg/dL (70-99) Laboratory Tests Test 02/13/19 16:38 02/13/19 21:37 02/14/19 07:28 Glucose (Fingerstick) 172 mg/dL (70-99) 127 mg/dL (70-99) 129 mg/dL (70-99) Allergies Allergies Coded Allergies Type Severity Reaction Last Updated Verified No Known Drug Allergies 02/08/19 No Disposition/Orders: Other (d/c snf) Patient Instructions Feeding Comments * thickened liquids BLAYNE MILES MD Feb 14, 2019 11:07
[2019-02-14] MEDS ORDERED: INSU100I11 SQ (11:11)
[2019-02-14] MEDS ORDERED: CLON1PAT6 TD (11:11)
[2019-02-14] MEDS ORDERED: BISA10SU4 PR (11:11)
[2019-02-14] MEDS ORDERED: AMLO5TAB10 PO (11:11)
[2019-02-14] MEDS ORDERED: Phenyleph/Mineral Oil/Petrolat RC (11:11)
[2019-02-14] MEDS ORDERED: ASPI-630 PO (11:11)
--- NOTE | 2019-02-14 11:13 | SNU/HH DC ---
DISCHARGE ORDERS DISCHARGE INFORMATION: FINAL DIAGNOSIS Problems Medical Problems: (1) Hypercalcemia Status: Acute (2) Low back pain Status: Acute (3) Nausea and vomiting Status: Acute (4) Uncontrolled diabetes mellitus Status: Acute CONDITION ON DISCHARGE: Stable CODE STATUS: Code Status: Full USP: SNF STAY <30 DAYS: Yes HOSPICE: HOSPICE: No HOSPICE EVAL & TREAT: No LTAC: ADMIT TO LTAC: No POST DISCHARGE ORDERS: ACTIVITY ORDERS: Activity as tolerated WEIGHT BEARING STATUS: As tolerated DIET AFTER DISCHARGE: ADA WOUND/INCISION CARE: No wound care needed CHECKS AFTER DISCHARGE: CHECKS AFTER DISCHARGE: Check blood press - daily, Check blood sugar, ac/hs, Check your Temp as needed FOLLOW-UP: PHYSICIAN FOLLOW-UP: pcp one week ADDITIONAL FOLLOW-UP: neurology 3 weeks TREATMENT/EQUIPMENT ORDERS: ADAPTIVE EQUIPMENT NEEDED: None Physical Therapy For: Evalulation/Treatment Occupational Therapy For: Evaluation/Treatment Speech Language Pathology For: Evaluation/Treatment DISCHARGE MEDICATIONS: Home Meds Active Scripts [Phenyleph/Mineral Oil/Petrolat] 1 ESTRELLA ESTRELLA No Conflict Check, 1 ESTRELLA RC PRN QID PRN for RECTAL PAIN for 10 Days, #30 Prov:BLAYNE MILES MD 02/14/19 Insulin Lispro (HUMALOG) 100 Unit/1 Ml Insuln.pen, 0 UNITS SQ TIDWMEALS for glucose for 28 Days, #2 EACH Prov:BLAYNE MILES MD 02/14/19 Bisacodyl (BISACODYL) 10 Mg Supp.rect, 10 MG HI PRN DAILY PRN for CONSTIPATION for 10 Days, #10 SUPP.RECT Prov:BLAYNE MILES MD 02/14/19 Aspirin (ASPIRIN) 81 Mg Tab.chew, 81 MG PO DAILYWBKFT for cva for 30 Days, #30 TAB.CHEW Prov:BLAYNE MILES MD 02/14/19 Amlodipine Besylate (AMLODIPINE BESYLATE) 5 Mg Tablet, 5 MG PO BID for blood pressure for 30 Days, #60 TAB Prov:BLAYNE MILES MD 02/14/19 Clonidine (CLONIDINE TTS-2 ) 1 Each Patch.tdwk, 1 PATCH TD WEEKLY for blood p ressure for 30 Days, #4 PATCH Prov:BLAYNE MILES MD 02/14/19 Cholecalciferol (Vitamin D3) (VITAMIN D3) 5,000 Unit Capsule, 5000 UNIT PO DAILY for Vitamin D insufficiency for 30 Days, #30 CAP 2 Refills Prov:LALO SMITH MD 01/19/19 Polyethylene Glycol 3350 (MIRALAX) 17 Gm Powd.pack, 1 PACKET PO DAILY for Constipation, #30 PACKET 3 Refills Prov:LALO SMITH MD 12/09/18 Reported Medications Glimepiride (GLIMEPIRIDE) 4 Mg Tablet, 1 TAB PO DAILYWBKFT for does not know, #30 TAB 5 Refills 06/13/17 Prochlorperazine Maleate (Compazine) 10 Mg Tablet, 10 MG PO PRN Q8HRS PRN for NAUSEA, TAB 06/13/17 Pravastatin Sodium (PRAVASTATIN SODIUM) 40 Mg Tablet, 1 TAB PO QHS for cholesterol, #90 TAB 1 Refill 06/13/17 Labetalol Hcl (LABETALOL HCL) 200 Mg Tablet, 1 TAB PO BID for htn, #60 TAB 5 Refills 06/13/17 Discontinued Reported Medications Oxycodone/Apap 7.5-325 (PERCOCET 7.5-325 MG TABLET ) 1 Each Tablet, 2 TAB PO PRN TID PRN for PAIN, TAB 0 Refills 01/13/19 Albuterol Sulfate (PROAIR HFA INHALER) 8.5 Gm Hfa.aer.ad, 2 PUFF INH PRN Q6HRS PRN for SHORTNESS OF BREATH, INHALER 0 Refills 06/13/17 Amitriptyline Hcl (AMITRIPTYLINE HCL) 10 Mg Tablet, 6 TAB PO QHS for sleep, #30 TAB 1 Refill 06/13/17 Diclofenac Sodium (DICLOFENAC SODIUM) 75 Mg Tablet.dr, 1 TAB PO BID, #60 TAB 1 Refill 06/13/17 Clonidine Hcl (CLONIDINE HCL) 0.3 Mg Tablet, 1 TAB PO BID for htn, #30 TAB 2 Refills 06/13/17 Discontinued Scripts Pregabalin (LYRICA) 100 Mg Capsule, 1 CAP PO BID for nerve pain for 30 Days, #60 CAP 2 Refills Prov:LALO SMITH MD 12/09/18 BLAYEN MILES MD Feb 14, 2019 11:13
--- NOTE | 2019-02-14 11:28 | CONS ---
DATE OF CONSULTATION: 02/14/2019 REQUESTING PHYSICIAN: Dr. Nolasco. REASON FOR CONSULTATION: Drug resistant UTI. HISTORY OF PRESENT ILLNESS: This patient is a 74-year-old -French female, a [facility] resident, who was admitted on 02/07 for hematemesis. She underwent an EGD and was found to have erosive esophagitis. She has been treated with PPI therapy. She later became hypertensive with acute mental status change. Code stroke was called. A CT head and followup brain MRI showed no acute intracranial changes. Urinalysis from 02/08 showed wbc's too numerous to count, positive nitrites, leukocyte esterase, bacteria and moderate squamous epithelial cells. Urine culture grew coagulase-negative Staphylococcus, oxacillin resistant. She was initially on Zosyn before switching to Bactrim on the . The patient has an indwelling Armenta catheter that was placed on the . She denies fevers, chills, sweats or body aches. She does feel somewhat sick to her stomach, nauseous. She had a bowel movement earlier. Denies vomiting or diarrhea. PAST MEDICAL HISTORY: Diabetes mellitus, chronic kidney disease, history of CVA, hypertension, asthma, hyperlipidemia, osteoarthritis, and cataracts. PAST SURGICAL HISTORY: Cholecystectomy and hysterectomy. FAMILY HISTORY: Coronary artery disease. SOCIAL HISTORY: shelter resident. Former smoker. ALLERGIES: No known drug allergies. MEDICATIONS: Bactrim, previously on Zosyn (), probiotics. Other medications are available and have been reviewed on the JUL. REVIEW OF SYSTEMS: Per HPI, otherwise all other review of systems are negative. PHYSICAL EXAMINATION: VITAL SIGNS: Temperature is 98.6, blood pressure 154/83, heart rate 73, respiratory rate 20, pulse oximetry 95% on 1.5 liters, BMI of 40. GENERAL: The patient is sitting in a chair, alert, in no apparent distress. HEENT: Pupils equally round. Oropharynx clear. NECK: Supple. LUNGS: Clear to auscultation. HEART: S1, S2. ABDOMEN: Soft, mildly tender. No rebound. Bowel sounds present. GENITOURINARY: Indwelling Armenta in place (02-09). EXTREMITIES: No gross edema or cyanosis. SKIN: Warm to touch. No signs of rash. NEUROLOGIC: Alert and answering questions appropriately. LABORATORY DATA: Most recent from 02/11, WBC 6.7, hemoglobin 12.4, platelets 204,000. Sodium 144, potassium 3.6, creatinine 0.8, BUN 10, glucose 167, total bilirubin 0.5, AST 13, ALT 12, albumin 3.0. Urinalysis and urine culture per HPI. Blood cultures negative to date. CT head and brain MRI per HPI. Abdominal/pelvis CT showed no acute abnormality. IMPRESSION: 1. Pyuria with growth of methicillin-resistant Staphylococcus epidermidis from 02/08. 2. Acute mental status change, improved. 3. Erosive esophagitis. 4. Hypertension. 5. Diabetes type 2. 6. History of cerebrovascular accident. PLAN: SORIN is not typically considered a urologic pathogen. The urine was contaminated as evidenced by moderate amount of squamous epithelial cells. She did, however, receive 5 days of Zosyn. Discontinue the Bactrim. Recommend removing the Armenta catheter if not needed. Thank you, Dr. Nolasco, for asking us to participate in this patient's care. Should you have further questions or concerns, please call. ANDREEA GALE MD DR: OLIVER/manju JOB#: [id number] / [id number]
[2019-02-14 11:52] VITALS: BP 152/77
[2019-02-14 12:23] LABS: BILIRUBIN,URINE NEGATIVE (NEG); CLARITY,URINE CLEAR; COLOR,URINE YELLOW; NITRITE,URINE NEGATIVE (NEG); PROTEIN,URINE NEGATIVE (NEG-TRACE)
[2019-02-14 12:40] LABS: BACTERIA,URINE 0 /HPF (0-FEW); WBC,URINE 0 /HPF (0-4)
[2019-02-14 12:41] LABS: SQUAMOUS EPITHELIAL CELL,UR FEW /LPF
--- NOTE | 2019-02-14 15:01 | PDOC ---
G I PROGRESS NOTE Reason for Follow-up N/V Subjective Appetite still poor/going to rehab later today Physical Exam Lungs decreased BS CV S1 S2' Abd +BS, soft, nontender Review of Relevant I have reviewed the following items jorge luis (where applicable) has been applied. Labs Laboratory Tests Test 02/12/19 16:43 02/12/19 20:27 02/13/19 07:30 02/13/19 11:03 Glucose (Fingerstick) 297 mg/dL (70-99) 211 mg/dL (70-99) 145 mg/dL (70-99) 248 mg/dL (70-99) Test 02/13/19 16:38 02/13/19 21:37 02/14/19 07:28 02/14/19 11:18 Glucose (Fingerstick) 172 mg/dL (70-99) 127 mg/dL (70-99) 129 mg/dL (70-99) 208 mg/dL (70-99) Test 02/14/19 11:35 Urine Collection Type Unknown Urine Color Yellow Urine Clarity Clear Urine pH 7.0 Urine Specific [place] 1.015 Urine Protein Negative mg/dL (NEG-TRACE) Urine Glucose (UA) Negative mg/dL (NEG) Urine Ketones (Stick) Negative mg/dL (NEG) Urine Blood Negative (NEG) Urine Nitrite Negative (NEG) Urine Bilirubin Negative (NEG) Urine Urobilinogen Dipstick 1.0 mg/dL (0.2 mg/dL) Urine Leukocyte Esterase Negative (NEG) Urine RBC 11-20 /HPF (0-2) Urine WBC 0 /HPF (0-4) Urine Squamous Epithelial Cells Few /LPF Urine Bacteria 0 /HPF (0-FEW) Laboratory Tests Test 02/13/19 16:38 02/13/19 21:37 02/14/19 07:28 02/14/19 11:18 Glucose (Fingerstick) 172 mg/dL (70-99) 127 mg/dL (70-99) 129 mg/dL (70-99) 208 mg/dL (70-99) Test 02/14/19 11:35 Urine Collection Type Unknown Urine Color Yellow Urine Clarity Clear Urine pH 7.0 Urine Specific [place] 1.015 Urine Protein Negative mg/dL (NEG-TRACE) Urine Glucose (UA) Negative mg/dL (NEG) Urine Ketones (Stick) Negative mg/dL (NEG) Urine Blood Negative (NEG) Urine Nitrite Negative (NEG) Urine Bilirubin Negative (NEG) Urine Urobilinogen Dipstick 1.0 mg/dL (0.2 mg/dL) Urine Leukocyte Esterase Negative (NEG) Urine RBC 11-20 /HPF (0-2) Urine WBC 0 /HPF (0-4) Urine Squamous Epithelial Cells Few /LPF Urine Bacteria 0 /HPF (0-FEW) Microbiology 02/09/19 Blood Culture - Final, Complete NO GROWTH AFTER 5 DAYS 02/08/19 Urine Culture - Final, Complete 02/08/19 Urine Culture Result 1 (REECE) - Final, Complete 02/08/19 Antimicrobic Susceptibility - Final, Complete Medications Current Medications Sodium Chloride 1,000 ml @ 1,000 mls/hr 1X ONCE IV Last administered on 02/07/19at 07:45; Start 02/07/19 at 06:30; Stop 02/07/19 at 07:29; Status DC Pantoprazole Sodium (PROTONIX VIAL for IV PUSH) 40 mg 1X ONCE IVP Last administered on 02/07/19at 07:42; Start 02/07/19 at 06:30; Stop 02/07/19 at 06:31; Status DC Albuterol/ Ipratropium (Duoneb) 3 ml 1X ONCE NEB Last administered on 02/07/19at 07:43; Start 02/07/19 at 07:30; Stop 02/07/19 at 07:31; Status DC Fentanyl Citrate (Fentanyl 2ml Vial) 50 mcg 1X ONCE IVP Last administered on 02/07/19at 08:01; Start 02/07/19 at 08:00; Stop 02/07/19 at 08:01; Status DC Ondansetron HCl (Zofran) 4 mg 1X ONCE IV Last administered on 02/07/19at 08:00; Start 02/07/19 at 08:00; Stop 02/07/19 at 08:01; Status DC Fentanyl Citrate (Fentanyl 2ml Vial) 50 mcg 1X ONCE IVP Last administered on 02/07/19at 08:40; Start 02/07/19 at 08:15; Stop 02/07/19 at 08:24; Status DC Ondansetron HCl (Zofran) 4 mg PRN Q8HRS PRN IV NAUSEA/VOMITING Last administered on 02/08/19at 07:57; Start 02/07/19 at 08:15; Stop 02/08/19 at 08:14; Status DC Sodium Chloride 1,000 ml @ 150 mls/hr Q6H40M IV Last administered on 02/08/19at 07:07; Start 02/07/19 at 08:09; Stop 02/08/19 at 08:08; Status DC Morphine Sulfate (Morphine Sulfate) 4 mg 1X ONCE IM Last administered on 02/07/19at 08:53; Start 02/07/19 at 08:45; Stop 02/07/19 at 08:48; Status DC Prochlorperazine Edisylate (Compazine) 5 mg 1X ONCE IM Last administered on 02/07/19 08:52; Start 02/07/19 at 08:45; Stop 02/07/19 at 08:48; Status DC Amlodipine Besylate (Norvasc) 5 mg DAILY PO Last administered on 02/12/19 09:20; Start 02/07/19 at 10:00; Stop 02/12/19 at 16:44; Status DC Aspirin (Children'S Aspirin) 81 mg DAILYWBKFT PO Last administered on 02/07/19at 10:45; Start 02/07/19 at 10:00; Stop 02/07/19 at 15:05; Status DC Tramadol HCl (Ultram) 50 mg PRN Q6HRS PRN PO MILD TO MODERATE PAIN Last administered on 02/14/19at 09:40; Start 02/07/19 at 11:00 Hydromorphone HCl (Dilaudid) 1 mg PRN Q4HRS PRN IV SEVERE PAIN Last administered on 02/13/19 19:59; Start 02/07/19 at 11:00 Hydralazine HCl (Apresoline Inj) 10 mg PRN Q4HRS PRN IVP ELEVATED BP, SEE COMMENTS Last administered on 02/11/19 16:00; Start 02/07/19 at 15:15 Ondansetron HCl (Zofran) 4 mg PRN Q6HRS PRN IVP NAUSEA/VOMITING Last administered on 02/13/19 17:45; Start 02/07/19 at 15:15 Midazolam HCl (Versed) 2 mg PRN 1X PRN IV PRIOR TO PROCEDURE; Start 02/08/19 at 10:45; Stop 02/09/19 at 10:44; Status DC Fentanyl Citrate (Fentanyl 2ml Vial) 25 mcg PRN Q5MIN PRN IV X 2 DOSES FOR PAIN; Start 02/08/19 at 10:45; Stop 02/09/19 at 10:44; Status DC Fentanyl Citrate (Fentanyl 2ml Vial) 50 mcg PRN Q5MIN PRN IV X 2 DOSES FOR PAIN; Start 02/08/19 at 10:45; Stop 02/09/19 at 10:44; Status DC Ringer's Solution 1,000 ml @ 125 mls/hr Q8H IV Last administered on 02/08/19at 12:10; Start 02/08/19 at 10:39; Stop 02/08/19 at 22:38; Status DC Lidocaine HCl (Xylocaine-Mpf 1% 2ml Vial) 2 ml 1X PRN PRN ID IV START; Start 02/08/19 at 10:45; Stop 02/09/19 at 10:44; Status DC Propofol 20 ml @ As Directed STK-MED ONCE IV ; Start 02/08/19 at 13:16; Stop 02/08/19 at 13:17; Status DC Lidocaine HCl (Lidocaine Pf 2% Vial) 5 ml STK-MED ONCE .ROUTE ; Start 02/08/19 at 13:16; Stop 02/08/19 at 13:17; Status DC Pantoprazole Sodium (Protonix) 40 mg DAILYAC PO Last administered on 02/08/19at 14:41; Start 02/08/19 at 15:00; Stop 02/09/19 at 11:00; Status DC Clonidine HCl (Catapres Tts-2) 1 patch WEEKLY TD ; Start 02/09/19 at 09:00; Stop 02/08/19 at 17:56; Status DC Clonidine HCl (Catapres Tts-2) 1 patch WEEKLY TD Last administered on 02/08/19at 18:13; Start 02/08/19 at 18:00 Metoprolol Tartrate (Lopressor Vial) 5 mg Q6HRS IVP Last administered on 02/09/19at 12:51; Start 02/09/19 at 00:15; Stop 02/09/19 at 12:59; Status DC Influenza Virus Vaccine Quadrival (Afluria Quad 2019-20 (3yr Up) Syringe) 0.5 ml ONCE ONCE VAX IM ; Start 02/09/19 at 09:00; Stop 02/09/19 at 09:01; Status DC Pantoprazole Sodium (PROTONIX VIAL for IV PUSH) 40 mg DAILYAC IVP Last adm inistered on 02/10/19at 10:08; Start 02/09/19 at 11:01; Stop 02/10/19 at 13:05; Status DC Piperacillin Sod/ Tazobactam Sod 3.375 gm/Sodium Chloride 50 ml @ 100 mls/hr Q6HRS IV Last administered on 02/13/19at 12:28; Start 02/09/19 at 12:00; Stop 02/13/19 at 14:07; Status DC Ondansetron HCl (Zofran) 4 mg PRN Q6HRS PRN IV NAUSEA/VOMITING; Start 02/09/19 at 11:30; Stop 02/09/19 at 11:32; Status DC Prochlorperazine (Compazine) 25 mg PRN Q12HR PRN AK NAUSEA/VOMITING; Start 02/09/19 at 11:30 Famotidine (Pepcid Vial) 20 mg BID IVP ; Start 02/09/19 at 21:00; Stop 02/09/19 at 11:30; Status DC Enoxaparin Sodium (Lovenox 40mg Syringe) 40 mg Q12HR SQ Last administered on 02/14/19at 09:27; Start 02/09/19 at 21:00 Sodium Chloride (Normal Saline Flush) 3 ml QSHIFT PRN IV AFTER MEDS AND BLOOD DRAWS; Start 02/09/19 at 11:30 Sodium Chloride 1,000 ml @ 100 mls/hr Q10H IV Last administered on 02/14/19at 05:19; Start 02/09/19 at 11:25 Bisacodyl (Dulcolax Supp) 10 mg PRN DAILY PRN AK CONSTIPATION; Start 02/09/19 at 11:30 Labetalol HCl (Normodyne Iv Push) 20 mg Q4HRS IVP Last administered on 02/11/19at 09:33; Start 02/09/19 at 13:00; Stop 02/11/19 at 15:28; Status DC Nicardipine HCl 50 mg/Sodium Chloride 250 ml @ 25 mls/hr CONT PRN IV SEE I/O RECORD Last administered on 02/09/19 17:42; Start 02/09/19 at 17:15; Stop 02/11/19 at 16:50; Status DC Morphine Sulfate (Morphine Sulfate) 2 mg PRN Q2HR PRN IV MODERATE PAIN Last administered on 02/14/19 05:20; Start 02/09/19 at 20:15 Lactobacillus Rhamnosus (Culturelle) 1 cap BID PO Last administered on 02/14/19 09:25; Start 02/10/19 at 21:00 Aspirin (Children'S Aspirin) 81 mg DAILYWBKFT PO Last administered on 02/14/19 09:25; Start 02/11/19 at 08:00 Pantoprazole Sodium (PROTONIX VIAL for IV PUSH) 40 mg BIDAC IVP Last administered on 02/14/19 07:20; Start 02/10/19 at 16:30 Diphenhydramine HCl (Benadryl) 12.5 mg PRN QHS PRN IVP ITCHING Last administered on 02/13/19 13:29; Start 02/10/19 at 19:45 Phenyleph/Shark Oil/Min Oil/Petrol (Preparation H) 1 becca PRN QID PRN RC RECTAL PAIN Last administered on 02/10/19 20:18; Start 02/10/19 at 20:00 Lorazepam (Ativan Inj) 1 mg PRN QHS PRN IVP ANXIETY / AGITATION Last administered on 02/11/19 00:56; Start 02/11/19 at 01:00 Labetalol HCl (Trandate) 200 mg BID PO Last administered on 02/14/19 09:26; Start 02/11/19 at 21:00 Atorvastatin Calcium (Lipitor) 10 mg QHS PO Last administered on 02/13/19 20:44; Start 02/11/19 at 21:00 Amlodipine Besylate (Norvasc) 5 mg BID PO Last administered on 02/14/19 09:26; Start 02/12/19 at 21:00 Glimepiride (Amaryl) 2 mg [id number] PO Last administered on 02/14/19 07:20; Start 02/13/19 at 07:00 Insulin Human Lispro (HumaLOG) 0-5 UNITS TIDWMEALS SQ Last administered on 02/13/19at 17:53; Start 02/13/19 at 08:00 Dextrose (Dextrose 50%-Water Syringe) 12.5 gm PRN Q15MIN PRN IV SEE COMMENTS; Start 02/12/19 at 18:45 Trimethoprim/ Sulfamethoxazole (Bactrim Ds) 1 tab BID PO Last administered on 02/14/19at 09:25; Start 02/13/19 at 14:30; Stop 02/14/19 at 10:48; Status DC Active Scripts Active [Phenyleph/Mineral Oil/Petrolat] 1 BECCA Becca 1 Becca RC PRN QID PRN 10 Days Humalog (Insulin Lispro) 100 Unit/1 Ml Insuln.pen 0 Units SQ TIDWMEALS 28 Days Bisacodyl 10 Mg Supp.rect 10 Mg AK PRN DAILY PRN 10 Days Aspirin 81 Mg Tab.chew 81 Mg PO DAILYWBKFT 30 Days Amlodipine Besylate 5 Mg Tablet 5 Mg PO BID 30 Days Clonidine Tts-2 (Clonidine) 1 Each Patch.tdwk 1 Patch TD WEEKLY 30 Days Vitamin D3 (Cholecalciferol (Vitamin D3)) 5,000 Unit Capsule 5,000 Unit PO DAILY 30 Days Miralax (Polyethylene Glycol 3350) 17 Gm Powd.pack 1 Packet PO DAILY Reported Glimepiride 4 Mg Tablet 1 Tab PO DAILYWBKFT Compazine (Prochlorperazine Maleate) 10 Mg Tablet 10 Mg PO PRN Q8HRS PRN Pravastatin Sodium 40 Mg Tablet 1 Tab PO QHS Labetalol Hcl 200 Mg Tablet 1 Tab PO BID Vitals/I & O Vital Sign - Last 24 Hours 02/13/19 02/13/19 02/13/19 02/13/19 15:15 15:55 19:53 20:00 Temp 98.8 98.8 Pulse 64 Resp 16 B/P (MAP) 146/70 (95) Pulse Ox 100 100 98 O2 Delivery Nasal Cannula Nasal Cannula Nasal Cannula Nasal Cannula O2 Flow Rate 2.0 2.0 1.5 2.0 02/13/19 02/13/19 02/13/19 02/14/19 20:43 20:44 23:15 03:38 Temp 98.8 98.3 98.8 98.3 Pulse 64 64 69 63 Resp 16 16 B/P (MAP) 146/70 146/70 172/70 (104) 157/70 (99) Pulse Ox 96 98 O2 Delivery Nasal Cannula Nasal Cannula O2 Flow Rate 1.5 1.5 02/14/19 02/14/19 02/14/19 02/14/19 07:43 08:00 09:26 09:26 Temp 98.6 98.6 Pulse 73 73 73 Resp 20 B/P (MAP) 154/83 (106) 154/83 154/83 Pulse Ox 95 O2 Delivery Nasal Cannula Nasal Cannula O2 Flow Rate 1.5 1.5 02/14/19 11:52 Temp 98.3 98.3 Pulse 69 Resp 18 B/P (MAP) 152/77 (102) Pulse Ox 98 O2 Delivery Nasal Cannula O2 Flow Rate 1.5 Intake and Output 02/13/19 02/13/19 02/14/19 15:00 23:00 07:00 Intake Total 650 ml 480 ml Output Total 850 ml 1900 ml Balance -200 ml 480 ml -1900 ml Problem List Problems Medical Problems: (1) Hypercalcemia Status: Acute (2) Low back pain Status: Acute (3) Nausea and vomiting Status: Acute (4) Uncontrolled diabetes mellitus Status: Acute Assessment N/V- improved, most likely multifactorial in etiology, CPM VALERIANO BILLINGS MD Feb 14, 2019 15:01
[2019-02-14 15:47] VITALS: BP 165/87
--- NOTE | 2019-02-14 17:27 | NUR ---
pt discharged to [facility] via [facility]. daughter present in room upon dc. report given to SAUL Ortega at [facility]. meds, diet, activity, and follow up reviewed. IV's removed from R AC X2. pt stable upon dc.
[2019-03-17] MEDS ORDERED: tri (17:49)
[2019-03-17] MEDS ORDERED: TRIA15CR3 TP (17:49)
[2019-03-17] MEDS ORDERED: OXYC1TAB19 PO (17:49)
[2019-03-17] MEDS ORDERED: TRAM100T2 PO (17:49)
[2019-03-17] MEDS ORDERED: HYDR28.423 TP (17:49)
[2019-03-17] MEDS ORDERED: CLON0.3T PO (17:49)
[2019-03-17] MEDS ORDERED: AMLO5TAB10 PO (17:49)
[2019-03-17] MEDS ORDERED: DIAZ5TAB4 PO (17:49)
[2019-03-17] MEDS ORDERED: PROAIR RESPICL90 MCG IH (17:49)
[2019-03-17] MEDS ORDERED: PREG150C PO (17:49)
[2019-03-17] MEDS ORDERED: AMIT10TA PO (17:49)
[2019-03-17] MEDS ORDERED: DICL1TAB5 PO (17:49)
[2019-03-17] MEDS ORDERED: AMMO120C TP (17:49)
[2019-03-17] MEDS ORDERED: DICL100G18 TP (17:49)
== END 2019-02-14 17:32 | DRG 380 ==
LOC: ER 05:57 → 6 SOUTH 07:50 → 1 WEST ICU 02-09 11:54 → 6 SOUTH 02-11 16:46
PROVIDERS: ADMIT Internal Medicine; ATTEND Internal Medicine
PROC: 0DB38ZX Excision of Lower Esophagus, Via Natural or Artificial Opening Endoscopic, Diagnostic (ICD-10-PCS; principal; 2019-02-08 13:00)
DX: K22.11 Ulcer of esophagus with bleeding (principal); G93.41 Metabolic encephalopathy; E87.0 Hyperosmolality and hypernatremia; Z68.41 Body mass index [BMI] 40.0-44.9, adult; I16.1 Hypertensive emergency; N39.0 Urinary tract infection, site not specified; R47.01 Aphasia; K21.0 Gastro-esophageal reflux disease with esophagitis; E11.22 Type 2 diabetes mellitus with diabetic chronic kidney disease; E11.42 Type 2 diabetes mellitus with diabetic polyneuropathy; E11.65 Type 2 diabetes mellitus with hyperglycemia; E21.3 Hyperparathyroidism, unspecified; E55.9 Vitamin D deficiency, unspecified; E66.01 Morbid (severe) obesity due to excess calories; E78.5 Hyperlipidemia, unspecified; E86.0 Dehydration; E86.1 Hypovolemia; G89.29 Other chronic pain; I12.9 Hypertensive chronic kidney disease with stage 1 through stage 4 chronic kidney disease, or unspecified chronic kidney disease; I25.10 Atherosclerotic heart disease of native coronary artery without angina pectoris; J45.909 Unspecified asthma, uncomplicated; M06.9 Rheumatoid arthritis, unspecified; M17.0 Bilateral primary osteoarthritis of knee; M43.17 Spondylolisthesis, lumbosacral region; M51.36 Other intervertebral disc degeneration, lumbar region; N18.9 Chronic kidney disease, unspecified; R62.7 Adult failure to thrive; Z79.82 Long term (current) use of aspirin; Z82.49 Family history of ischemic heart disease and other diseases of the circulatory system; Z86.73 Personal history of transient ischemic attack (TIA), and cerebral infarction without residual deficits; Z87.891 Personal history of nicotine dependence; Z90.710 Acquired absence of both cervix and uterus; H26.9 Unspecified cataract; M19.90 Unspecified osteoarthritis, unspecified site; Z90.49 Acquired absence of other specified parts of digestive tract; D63.8 Anemia in other chronic diseases classified elsewhere; K92.0 Hematemesis
CPT/HCPCS: 36415; 43239; 70450; 70551; 74176; 80053; 80061; 81001; 82271; 82306; 82962; 83605; 83690; 83880; 83970; 84100; 84443; 84484; 85018; 85025; 85027; 85610; 85730; 86850; 86900; 86901; 87040; 87086; 87186; 88305; 93005; 93306; 94640; 95816; 96361; 96372; 96374; 96375; 96376; C9113; J0360; J0780; J1170; J1200; J1650; J1815; J2001; J2060; J2270; J2405; J2543; J2704; J3010; J3490; J7030; J7050; J7120; J7620; 92526; 92610; 97110; 97530; 97535; 99285-25; G0378

== ENCOUNTER 2019-09-13 09:04 | Emergency (ER) | payer OTHER, MEDICAID ==
[~2019-09-13] VITALS: Ht 172.7 cm; Wt 115.0 kg
[~2019-09-13 09:04] MED LIST changes: +AMLO10TA8 PO; +AMLO5TAB10 PO; +AMMO120C TP; +AMOX1TAB11 PO; +ASPI-630 PO; +BISA10SU4 PR; +CLON1PAT3 TD; +CLON1PAT6 TD; +DICL100G54 TP; +DICL1TAB5 PO; -GLIM4TAB4 PO; +GLIM4TAB8 PO; +HYDR-2868 PO; +HYDR28.423 TP; +INSU100I11 SQ; +LACT1CAP19 PO; +LIDO700A21 TD; +PANT40TA77 PO; +POLY17PO28 PO; +PREG150C PO; +PROAIR RESPICL90 MCG IH; +Phenyleph/Mineral Oil/Petrolat RC; +TRAM100T2 PO; +TRIA15CR3 TP; +tri
--- NOTE | 2019-09-13 10:25 | RAD ---
EXAM: Bilateral lower extremity venous Doppler sonogram. HISTORY: Pain and swelling. TECHNIQUE: Capps scale and color Doppler sonographic evaluation of the bilateral lower extremity veins with spectral waveform analysis was performed. FINDINGS: The exam is limited due to body habitus. The posterior tibial veins are not seen. There is normal color flow, normal compressibility and there are normal spectral waveforms in the remainder of the lower extremity veins. IMPRESSION: No Doppler evidence of lower extremity deep venous thrombosis, with nonvisualization of the posterior tibial veins. Electronically signed by: Pina Huffman MD (09/13/2019 10:22 AM) [id number]
--- NOTE | 2019-09-13 10:31 | PHYS DOC ---
Past Medical History Past Medical History: Arthritis, Asthma, Diabetes-Type II, Heart Disease, Hypertension, TIA, Other Additional Past Medical Histor: NEUROPATHY Past Surgical History: Cholecystectomy, Hysterectomy, Tonsillectomy Smoking Status: Former Smoker Alcohol Use: None Drug Use: None General Adult EDM: Chief Complaint: LOWER EXT PAIN HPI: HPI: Patient is a 74-year-old female who presents with lower extremity swelling and pain. Patient resides in a nursing facility and they were concerned that she might have a DVT. She denies any chest pain shortness of breath or dyspnea on exertion. She states her knees also ache from time to time. There is no trauma to the legs. She states the pain just feels like an aching. [] Review of Systems: Review of Systems: Constitutional: Denies fever or chills. [] Eyes: Denies change in visual acuity. [] HENT: Denies nasal congestion or sore throat. [] Respiratory: Denies cough or shortness of breath. [] Cardiovascular: Denies chest pain or edema. [] GI: Denies abdominal pain, nausea, vomiting, bloody stools or diarrhea. [] : Denies dysuria. [] Musculoskeletal: Per HPI [] Integument: Denies rash. [] Neurologic: Denies headache, focal weakness or sensory changes. [] Endocrine: Denies polyuria or polydipsia. [] Lymphatic: Denies swollen glands. [] Psychiatric: Denies depression or anxiety. [] Heart Score: Risk Factors: Risk Factors: DM, Current or recent (<one month) smoker, HTN, HLP, family history of CAD, obesity. Risk Scores: Score 0 - 3: 2.5% MACE over next 6 weeks - Discharge Home Score 4 - 6: 20.3% MACE over next 6 weeks - Admit for Clinical Observation Score 7 - 10: 72.7% MACE over next 6 weeks - Early Invasive Strategies Allergies: Allergies: Allergies Coded Allergies Type Severity Reaction Last Updated Verified No Known Drug Allergies 02/08/19 No Physical Exam: PE: Constitutional: Well developed, well nourished, no acute distress, non-toxic appearance. [] HENT: Normocephalic, atraumatic, bilateral external ears normal, oropharynx moist, no oral exudates, nose normal. [] Eyes: PERRLA, EOMI, conjunctiva normal, no discharge. [] Neck: Normal range of motion, no tenderness, supple, no stridor. [] Cardiovascular:Heart rate regular rhythm, no murmur [] Lungs & Thorax: Bilateral breath sounds clear to auscultation [] Abdomen: Bowel sounds normal, soft, no tenderness, no masses, no pulsatile masses. [] Skin: Warm, dry, no erythema, no rash. [] Back: No tenderness, no CVA tenderness. [] Extremities: Lower extremity swelling is mild calves are tender to palp and obvious arthritic changes to both knees. [] Neurologic: Alert and oriented X 3, normal motor function, normal sensory function, no focal deficits noted. [] Psychologic: Affect normal, judgement normal, mood normal. [] Current Patient Data: Vital Signs: Vital Signs Date Time Temp Pulse Resp B/P (MAP) Pulse Ox O2 Delivery O2 Flow Rate FiO2 09/13/19 09:05 98.9 71 18 135/70 (91) 98 Room Air 98.9 EKG: EKG: [] Radiology/Procedures: Radiology/Procedures: [] Impression: PROCEDURE: VENOUS LOWER EXT BILATERAL EXAM: Bilateral lower extremity venous Doppler sonogram. HISTORY: Pain and swelling. TECHNIQUE: Capps scale and color Doppler sonographic evaluation of the bilateral lower extremity veins with spectral waveform analysis was performed. FINDINGS: The exam is limited due to body habitus. The posterior tibial veins are not seen. There is normal color flow, normal compressibility and there are normal spectral waveforms in the remainder of the lower extremity veins. IMPRESSION: No Doppler evidence of lower extremity deep venous thrombosis, with nonvisualization of the posterior tibial veins. Course & Med Decision Making: Course & Med Decision Making Pertinent Labs and Imaging studies reviewed. (See chart for details) [] Dragon Disclaimer: Dragon Disclaimer: This electronic medical record was generated, in whole or in part, using a voice recognition dictation system. Departure Departure Impression: Primary Impression: Knee pain, bilateral Qualified Codes: M25.561 - Pain in right knee; M25.562 - Pain in left knee; G89.29 - Other chronic pain Additional Impression: Lower extremity pain, bilateral Disposition: 01 HOME, SELF-CARE Condition: STABLE Referrals: TOAN REYES (PCP) Patient Instructions: Venous Stasis and Chronic Venous Insufficiency Additional Instructions: Return to the emergency department with any new or concerning symptoms BERTO FIGUEROA DO September 13, 2019 10:31
[2019-09-13 10:45] VITALS: BP 118/71
== END 2019-09-13 11:07 | disposition home or self-care (01) ==
LOC: ER 09:04
DX: G89.29 Other chronic pain (principal); M25.561 Pain in right knee; M25.562 Pain in left knee; M19.90 Unspecified osteoarthritis, unspecified site; J45.909 Unspecified asthma, uncomplicated; I11.9 Hypertensive heart disease without heart failure; E11.40 Type 2 diabetes mellitus with diabetic neuropathy, unspecified; Z90.49 Acquired absence of other specified parts of digestive tract; Z90.710 Acquired absence of both cervix and uterus; Z87.891 Personal history of nicotine dependence; Z86.73 Personal history of transient ischemic attack (TIA), and cerebral infarction without residual deficits
CPT/HCPCS: 93970; 99284

== ENCOUNTER 2019-10-25 15:21 | Emergency (ER) | payer OTHER, MEDICAID ==
[~2019-10-25] VITALS: Ht 177.8 cm; Wt 125.0 kg
--- NOTE | 2019-10-25 15:45 | PHYS DOC ---
Past Medical History Past Medical History: Arthritis, Asthma, Diabetes-Type II, Heart Disease, Hypertension, TIA, Other Additional Past Medical Histor: NEUROPATHY Past Surgical History: Cholecystectomy, Hysterectomy, Tonsillectomy Smoking Status: Former Smoker Alcohol Use: None Drug Use: None General Adult HPI: HPI: Patient is a 74 year old female who presents with bilateral sharp shooting leg pain down the anterior legs times months. Patient complains that the Percocet she is getting at the [facility] is not helping. She also complains of increased swelling bilateral lower extremities. Bilateral hands are also swollen. Patient last took Percocet at 1400 today. Patient usually uses a wheelchair to get around. Patient states that she had transferred to the toilet and was trying to transfer back to her wheelchair when her feet went out under her due to pain and she fell. She denies injury or hitting her head. She states nothing else hurts except for her legs that is her chronic pain. She states the pain is no worse than it has been. She rates her pain a 10 out of 10. Review of Systems: Review of Systems: Musculoskeletal: Denies back pain. Bilateral lower legs joint pain and swelling. [] Heart Score: Risk Factors: Risk Factors: DM, Current or recent (<one month) smoker, HTN, HLP, family history of CAD, obesity. Risk Scores: Score 0 - 3: 2.5% MACE over next 6 weeks - Discharge Home Score 4 - 6: 20.3% MACE over next 6 weeks - Admit for Clinical Observation Score 7 - 10: 72.7% MACE over next 6 weeks - Early Invasive Strategies Allergies: Allergies: Allergies Coded Allergies Type Severity Reaction Last Updated Verified No Known Drug Allergies 02/08/19 No Physical Exam: PE: Constitutional: Well developed, well nourished, no acute distress, non-toxic appearance. [] HENT: Normocephalic, atraumatic, bilateral external ears normal, oropharynx moist, no oral exudates, nose normal. [] Eyes: PERRLA, EOMI, conjunctiva normal, no discharge. [] Neck: Normal range of motion, no tenderness, supple, no stridor. [] Cardiovascular:Heart rate regular rhythm, no murmur [] Lungs & Thorax: Upper Bilateral breath sounds clear and lower diminished to auscultation [] Abdomen: Bowel sounds normal, soft, no tenderness, no masses, no pulsatile masses. [] Skin: Warm, dry, no erythema, no rash. [] Back: No tenderness, no CVA tenderness. [] Extremities: No tenderness, no cyanosis, no clubbing, lateral lower extremities mid ROM intact, bilateral legs and hands 3+ edema. [] Neurologic: Alert and oriented X 3, normal motor function, normal sensory function, no focal deficits noted. [] Psychologic: Affect normal, judgement normal, mood normal. [] EKG: EK and read by Dr Zepeda as Sinus Rhythm and no STEMI[] Radiology/Procedures: Radiology/Procedures: [] Impression: [place] [id number] IMAGING REPORT Signed PATIENT: BIB SANTIAGO ACCOUNT: [id number] : 1945 LOCATION: ER AGE: 74 SEX: F EXAM STATUS: REG ER ORD. PHYSICIAN: RUSS AGUAYO APRN REASON: pain, increased swelling PROCEDURE: VENOUS LOWER EXT BILATERAL EXAM: Bilateral lower extremity venous Doppler sonogram. HISTORY: Pain in swallow. TECHNIQUE: Capps scale and color Doppler sonographic evaluation of the bilateral lower extremity veins with spectral waveform analysis was performed. FINDINGS: The exam is limited due to soft tissue edema and body habitus. The calf veins are not seen. There is normal color flow, normal compressibility and there are normal spectral waveforms in the remainder of the lower extremity veins. IMPRESSION: No Doppler evidence of lower extremity deep venous thrombosis, with nonvisualization of the calf veins due to soft tissue edema and body habitus. Electronically signed by: Pina Cornejo MD (10/25/2019 4:27 PM) [id number] DICTATED and SIGNED BY: PINA CORNEJO MD DATE: 10/25/[address] [id number] IMAGING REPORT Signed PATIENT: BIB SANTIAGO ACCOUNT: [id number] : 1945 LOCATION: ER AGE: 74 SEX: F EXAM STATUS: REG ER ORD. PHYSICIAN: RUSS AGUAYO APRN REASON: wheezing PROCEDURE: PORTABLE CHEST 1V PORTABLE CHEST 1V History: Reason: wheezing / Spl. Instructions: / History: Comparison: March 20, 2019 Findings: No consolidation or pleural effusion. Enlarged heart size although portable technique accentuates cardiac size. No pneumothorax. Postop changes right fifth rib. Impression: 1. Enlarged cardiac size, unchanged. Electronically signed by: Reyes Miller DO (10/25/2019 5:00 PM) [id number] DICTATED and SIGNED BY: REYES MILLER DO DATE: 10/25/19 1700 Course & Med Decision Making: Course & Med Decision Making Pertinent Labs and Imaging studies reviewed. (See chart for details) Patient has bilateral lower extremity pitting edema that goes all the way up her thighs. Bilateral hands are also swollen but nonpitting. 3+ in all extremities. Patient has audible wheezing. She did receive an albuterol treatment before coming to the ED. She is a previous smoker. She is a history of stroke, hypertension, heart disease, diabetes, asthma, arthritis, neuropathy, cholecystectomy, hysterectomy. Patient states she was short of breath earlier before they gave her the albuterol treatment. She denies chest pain, shortness of air, headache, dizziness, vision changes, new numbness or tingling, focal deficit, abdominal pain, nausea, vomiting, diarrhea, fever, dysuria. Lungs are diminished in lower airway. Abdomen is soft and nontender. There is no bruisi ng over her chest or abdomen. No bruising or abrasions to her back. No focal bony spinal tenderness. No hip pain with pelvic rock. Patient is able to roll herself over so I can check her spine. Cap refill less than 3 seconds. Skin pink warm and dry. No wounds or lacerations or abrasions seen. No tenderness over the skull with palpitation or her face. No teeth injury or tongue injury. No fluids coming from ears or her nose. She is alert and oriented. Speaks in full clear sentences. Answers all questions appropriately. Patient is hemodynamically stable. Patient states after fentanyl given is that she is better and she is hungry. Patient will be sent back to the nursing facility. The nursing facility to continue giving the patient Percocet and she also has tramadol on her medication list that they can try. I have decided not to give prednisone to help with the sciatic pain due to the patient being diabetic. [] Viktoria Disclaimer: Viktoria Disclaimer: This electronic medical record was generated, in whole or in part, using a voice recognition dictation system. Departure Departure Impression: Primary Impression: Chronic pain Qualified Codes: G89.29 - Other chronic pain Additional Impression: Chronic edema Disposition: HOME, SELF-CARE Condition: STABLE Referrals: TOAN REYES (PCP) Patient Instructions: Chronic Pain, Chronic Pain Management, Peripheral Edema Additional Instructions: Follow-up with primary care provider. Take the Percocet regularly. I also saw the tramadol on the medication list. Justicifation of Admission Dx: Justifications for Admission: Justification of Admission Dx: N/A RUSS AGUAYO BOOKING SUPERVISOR Oct 25, 2019 15:45
--- NOTE | 2019-10-25 16:31 | RAD ---
EXAM: Bilateral lower extremity venous Doppler sonogram. HISTORY: Pain in swallow. TECHNIQUE: Capps scale and color Doppler sonographic evaluation of the bilateral lower extremity veins with spectral waveform analysis was performed. FINDINGS: The exam is limited due to soft tissue edema and body habitus. The calf veins are not seen. There is normal color flow, normal compressibility and there are normal spectral waveforms in the remainder of the lower extremity veins. IMPRESSION: No Doppler evidence of lower extremity deep venous thrombosis, with nonvisualization of the calf veins due to soft tissue edema and body habitus. Electronically signed by: Pina Huffman MD (10/25/2019 4:27 PM) [id number]
[2019-10-25 16:50] LABS: BASO # 0.1 x10^3/uL (0.0-0.2); BASO % 2 % (0-3); EOS # 0.3 x10^3/uL (0.0-0.7); EOS % 5 % (0-3); HEMATOCRIT 28.8 % (36.0-47.0); HEMOGLOBIN 9.7 g/dL (12.0-15.5); LYMPH # 2.3 x10^3/uL (1.0-4.8); LYMPH % 33 % (24-48); MEAN CORPUSCULAR HEMOGLOBIN 32 pg (25-35); MEAN CORPUSCULAR HGB CONC 34 g/dL (31-37); MEAN CORPUSCULAR VOLUME 96 fL (79-100); MONO # 0.8 x10^3/uL (0.0-1.1); MONO % 12 % (0-9); NEUT # 3.4 x10^3/uL (1.8-7.7); NEUT % 49 % (31-73); PLATELET COUNT 263 x10^3/uL (140-400); RED CELL DISTRIBUTION WIDTH 13.7 % (11.5-14.5)
[2019-10-25] MEDS ORDERED: IPRATRPIUM/ALBUTEROL 0.5/2.5MG 3 ML NEBU. NEB ONE ×2 (17:00→20:00)
--- NOTE | 2019-10-25 17:03 | RAD ---
PORTABLE CHEST 1V History: Reason: wheezing / Spl. Instructions: / History: Comparison: March 20, 2019 Findings: No consolidation or pleural effusion. Enlarged heart size although portable technique accentuates cardiac size. No pneumothorax. Postop changes right fifth rib. Impression: 1. Enlarged cardiac size, unchanged. Electronically signed by: Reyes Miller DO (10/25/2019 5:00 PM) [id number]
[2019-10-25 17:58] LABS: CALCIUM 9.1 mg/dL (8.5-10.1); CREATININE 1.4 mg/dL (0.6-1.0); GFR 44.4
[2019-10-25 18:03] LABS: BILIRUBIN,URINE SMALL (NEG); CLARITY,URINE CLEAR; COLOR,URINE YELLOW; NITRITE,URINE NEGATIVE (NEG); PROTEIN,URINE NEGATIVE (NEG-TRACE)
[2019-10-25 18:07] LABS: ALBUMIN 2.7 g/dL (3.4-5.0); ALBUMIN/GLOBULIN RATIO 0.8 (1.0-1.7); TOTAL BILIRUBIN 0.3 mg/dL (0.2-1.0)
[2019-10-25 18:26] LABS: BACTERIA,URINE 0 /HPF (0-FEW); HYALINE CASTS, URINE MODERATE /HPF; RBC,URINE OCC /HPF (0-2); SQUAMOUS EPITHELIAL CELL,UR MOD /LPF; WBC,URINE OCC /HPF (0-4)
[2019-10-25] MEDS ORDERED: fentaNYL PF VIAL 100 MCG/2 ML VIAL IVP ONE (18:45)
[2019-10-25 20:00] VITALS: BP 156/63
--- NOTE | 2019-10-26 06:18 | EKG ---
[facility] [address] [place] [address] Test Date: 2019-10-25 Test Time: 15:59:03 Pat Name: BIB SANTIAGO Department: Room: Gender: F Machine Staker: : 1945 Requested By: RUSS AGUAYO Order Number: [id number] Reading MD: Measurements Intervals [place] Rate: 70 P: 40 [place]: 196 QRS: -2 QRSD: 84 T: 10 QT: 386 QTc: 420 Interpretive Statements SINUS RHYTHM LEFTWARD AXIS NO SPECIFIC ECG ABNORMALITIES RI6.01 No previous ECG available for comparison
== END 2019-10-25 20:15 | disposition home or self-care (01) ==
LOC: ER 15:21
DX: G89.29 Other chronic pain (principal); R60.0 Localized edema; M79.662 Pain in left lower leg; M79.661 Pain in right lower leg; J45.909 Unspecified asthma, uncomplicated; E11.40 Type 2 diabetes mellitus with diabetic neuropathy, unspecified; I11.9 Hypertensive heart disease without heart failure; Z86.73 Personal history of transient ischemic attack (TIA), and cerebral infarction without residual deficits; Z90.49 Acquired absence of other specified parts of digestive tract; Z90.710 Acquired absence of both cervix and uterus; Z87.891 Personal history of nicotine dependence
CPT/HCPCS: 36415; 71045; 80053; 81001; 83880; 84484; 85025; 93005; 93970; 94640; 96374; 99285; J3010

== ENCOUNTER 2019-11-02 09:01 | Inpatient (IN) | payer OTHER, MEDICAID ==
[~2019-11-02] VITALS: Ht 175.3 cm; Wt 123.8 kg
[~2019-11-02 09:01] MED LIST changes: -LISI1TAB19 PO; +LISI1TAB37 PO
[2019-11-02 10:05] LABS: BASO # 0.1 x10^3/uL (0.0-0.2); BASO % 1 % (0-3); EOS # 0.3 x10^3/uL (0.0-0.7); EOS % 4 % (0-3); HEMATOCRIT 29.9 % (36.0-47.0); HEMOGLOBIN 9.6 g/dL (12.0-15.5); LYMPH # 2.7 x10^3/uL (1.0-4.8); LYMPH % 34 % (24-48); MEAN CORPUSCULAR HEMOGLOBIN 31 pg (25-35); MEAN CORPUSCULAR HGB CONC 32 g/dL (31-37); MEAN CORPUSCULAR VOLUME 97 fL (79-100); MONO # 0.8 x10^3/uL (0.0-1.1); MONO % 11 % (0-9); NEUT # 3.9 x10^3/uL (1.8-7.7); NEUT % 50 % (31-73); PLATELET COUNT 228 x10^3/uL (140-400); RED BLOOD COUNT 3.09 x10^6/uL (3.50-5.40); RED CELL DISTRIBUTION WIDTH 13.8 % (11.5-14.5); WHITE BLOOD COUNT 7.9 x10^3/uL (4.0-11.0)
[2019-11-02 10:14] LABS: PROTHROMBIN TIME PATIENT 13.8 SEC (11.7-14.0)
--- NOTE | 2019-11-02 10:18 | EKG ---
[facility] [address] [place] [address] Test Date: 2019-11-02 Test Time: 09:11:07 Pat Name: BIB SANTIAGO Department: Room: Gender: F Help Desk Manager: [place] : 1945 Requested By: VASU PAVON Order Number: [id number] Reading MD: Jake Gipson Measurements Intervals [place] Rate: 67 P: 231 [place]: 152 QRS: 185 QRSD: 84 T: 181 QT: 396 QTc: 421 Interpretive Statements SINUS RHYTHM ABNORMAL RIGHT SUPERIOR AXIS DEVIATION T ABNORMALITY IN INFERIOR LEADS Electronically Signed On 11-29-2019 12:40:39 CDT by Jake Gipson
--- NOTE | 2019-11-02 10:23 | RAD ---
EXAM: CHEST 1 VIEW History: Shortness of breath COMPARISON: 10/25/2019 TECHNIQUE: Single portable radiograph of the chest FINDINGS: Moderate cardiomegaly. Mild prominent bilateral interstitial lung markings. Minimal bibasilar lung atelectasis. IMPRESSION: 1. Mild congestive changes. Electronically signed by: Jluis Valladares MD (11/02/2019 10:20 AM) [id number]
[2019-11-02 10:54] LABS: CALCIUM 9.4 mg/dL (8.5-10.1); CREATININE 1.4 mg/dL (0.6-1.0); GFR 44.4; POTASSIUM 4.9 mmol/L (3.5-5.1)
[2019-11-02 10:57] LABS: ALBUMIN/GLOBULIN RATIO 0.8 (1.0-1.7); TOTAL BILIRUBIN 0.3 mg/dL (0.2-1.0); TOTAL PROTEIN 6.6 g/dL (6.4-8.2)
[2019-11-02] MEDS ORDERED: fentaNYL PF VIAL 100 MCG/2 ML VIAL IVP ONE (11:45)
[2019-11-02] MEDS ORDERED: IV NORMAL SALINE 500ML BAG 500 ML IV ONE (13:15)
--- NOTE | 2019-11-02 13:49 | PHYS DOC ---
Past Medical History Past Medical History: Arthritis, Asthma, CHF, Depression, Diabetes-Type II, GERD, Heart Disease, Hypertension, TIA, Other Additional Past Medical Histor: NEUROPATHY Past Surgical History: Cholecystectomy, Hysterectomy, Tonsillectomy Smoking Status: Former Smoker Alcohol Use: None Drug Use: None General Adult EDM: Chief Complaint: LOWER EXTREMITY SWELLING HPI: HPI: Patient is a 74 year old female who was brought here by EMS from assisted living facility due to bilateral leg swelling and pain. Patient says she has had this symptom for a while, she was seen here on September 12, again in October 24 for the same problem. Patient had negative bilateral lower extremity Doppler her legs on October 24, no DVT. Patient denies any injury, patient complained of pain in her leg whenever she walks, she cannot walk for the last few days because of pain and swelling. Patient denies any chest pain, complain of trouble breathing with exertion. Patient denies any fever. Patient denies any cough. Review of Systems: Review of Systems: Constitutional: Denies fever or chills. [] Eyes: Denies change in visual acuity. [] HENT: Denies nasal congestion or sore throat. [] Respiratory: Denies cough or shortness of breath. [] Cardiovascular: Denies chest pain or edema. [] GI: Denies abdominal pain, nausea, vomiting, bloody stools or diarrhea. [] : Denies dysuria. [] Musculoskeletal: Positive for Bilateral leg swelling, and pain. Integument: Denies rash. [] Neurologic: Denies headache, focal weakness or sensory changes. [] Endocrine: Denies polyuria or polydipsia. [] Lymphatic: Denies swollen glands. [] Psychiatric: Denies depression or anxiety. [] Heart Score: Risk Factors: Risk Factors: DM, Current or recent (<one month) smoker, HTN, HLP, family history of CAD, obesity. Risk Scores: Score 0 - 3: 2.5% MACE over next 6 weeks - Discharge Home Score 4 - 6: 20.3% MACE over next 6 weeks - Admit for Clinical Observation Score 7 - 10: 72.7% MACE over next 6 weeks - Early Invasive Strategies Current Medications: Current Medications Medications (Trade) Dose Ordered Sig/Janay Start Time Stop Time Status Last Admin Dose Admin Fentanyl Citrate (Fentanyl 2ml Vial) 50 mcg 1X ONCE 11/02/19 11:45 11/02/19 11:46 DC 11/02/19 12:00 50 MCG Sodium Chloride 500 ml @ 500 mls/hr 1X ONCE 11/02/19 13:15 11/02/19 14:14 11/02/19 13:14 500 MLS/HR Allergies: Allergies: Allergies Coded Allergies Type Severity Reaction Last Updated Verified cephalexin Allergy Intermediate 10/25/19 Yes ciprofloxacin Allergy Intermediate 10/25/19 Yes fluconazole Allergy Intermediate 10/25/19 Yes levofloxacin Allergy Intermediate 10/25/19 Yes tetracycline Allergy Intermediate 10/25/19 Yes egg Adverse Reaction Intermediate 11/02/19 Yes Physical Exam: PE: Constitutional: Well developed, well nourished, no acute distress, non-toxic appearance. [] HENT: Normocephalic, atraumatic, bilateral external ears normal, oropharynx moist, no oral exudates, nose normal. [] Eyes: PERRLA, EOMI, conjunctiva normal, no discharge. [] Neck: Normal range of motion, no tenderness, supple, no stridor. [] Cardiovascular:Heart rate regular rhythm, no murmur [] Lungs & Thorax: Bilateral breath sounds clear to auscultation [] Abdomen: Bowel sounds normal, soft, no tenderness, no masses, no pulsatile masses. [] Skin: Warm, dry, no erythema, no rash. [] Back: No tenderness, no CVA tenderness. [] Extremities: Bilateral lower extremity swelling, edematous, several wound blisters with clear drainage on the right leg Neurologic: Alert and oriented X 3, normal motor function, normal sensory function, no focal deficits noted. [] Psychologic: Affect normal, judgement normal, mood normal. [] Current Patient Data: Labs: Laboratory Tests Test 11/02/19 09:30 11/02/19 09:55 Sodium Level 141 mmol/L (136-145) Potassium Level 4.9 mmol/L (3.5-5.1) Chloride Level 106 mmol/L (98-107) Carbon Dioxide Level 27 mmol/L (21-32) Anion Gap 8 (6-14) Blood Urea Nitrogen 22 mg/dL (7-20) H Creatinine 1.4 mg/dL (0.6-1.0) H Estimated GFR (Cockcroft-Gault) 44.4 BUN/Creatinine Ratio 16 (6-20) Glucose Level 159 mg/dL (70-99) H Calcium Level 9.4 mg/dL (8.5-10.1) Magnesium Level 2.0 mg/dL (1.8-2.4) Total Bilirubin 0.3 mg/dL (0.2-1.0) Aspartate Amino Transferase (AST) 29 U/L (15-37) Alanine Aminotransferase (ALT) 39 U/L (14-59) Alkaline Phosphatase 71 U/L (46-116) Troponin I Quantitative 0.026 ng/mL (0.000-0.055) RS-Mln-P-Type Natriuretic Peptide 212 pg/mL (0-449) Total Protein 6.6 g/dL (6.4-8.2) Albumin 3.0 g/dL (3.4-5.0) L Albumin/Globulin Ratio 0.8 (1.0-1.7) L White Blood Count 7.9 x10^3/uL (4.0-11.0) Red Blood Count 3.09 x10^6/uL (3.50-5.40) L Hemoglobin 9.6 g/dL (12.0-15.5) L Hematocrit 29.9 % (36.0-47.0) L Mean Corpuscular Volume 97 fL (79-100) Mean Corpuscular Hemoglobin 31 pg (25-35) Mean Corpuscular Hemoglobin Concent 32 g/dL (31-37) Red Cell Distribution Width 13.8 % (11.5-14.5) Platelet Count 228 x10^3/uL (140-400) Neutrophils (%) (Auto) 50 % (31-73) Lymphocytes (%) (Auto) 34 % (24-48) Monocytes (%) (Auto) 11 % (0-9) H Eosinophils (%) (Auto) 4 % (0-3) H Basophils (%) (Auto) 1 % (0-3) Neutrophils # (Auto) 3.9 x10^3/uL (1.8-7.7) Lymphocytes # (Auto) 2.7 x10^3/uL (1.0-4.8) Monocytes # (Auto) 0.8 x10^3/uL (0.0-1.1) Eosinophils # (Auto) 0.3 x10^3/uL (0.0-0.7) Basophils # (Auto) 0.1 x10^3/uL (0.0-0.2) Prothrombin Time 13.8 SEC (11.7-14.0) Prothrombin Time INR 1.1 (0.8-1.1) Activated Partial Thromboplast Time 30 SEC (24-38) Laboratory Tests 11/02/19 09:55 Laboratory Tests 11/02/19 09:30 Vital Signs: Vital Signs Date Time Temp Pulse Resp B/P (MAP) Pulse Ox O2 Delivery O2 Flow Rate FiO2 11/02/19 12:00 96 11/02/19 09:01 99.0 67 20 105/68 (80) Room Air 99.0 EKG: EKG: [] Radiology/Procedures: Radiology/Procedures: [] Course & Med Decision Making: Course & Med Decision Making Pertinent Labs and Imaging studies reviewed. (See chart for details) Patient is a 74-year-old female who was evaluated in ER due to bilateral lower extremity swelling, and pain. Patient herself for this condition for a while, it became worse lately, patient says she could not walk around due to pain and swelling. Patient lives in assisted living facility, she was not able to take care of her self so they brought her here for evaluation. Patient will need to be admitted for [facility] placement and physical therapy. Viktoria Disclaimer: Viktoria Disclaimer: This electronic medical record was generated, in whole or in part, using a voice recognition dictation system. Departure Departure Impression: Primary Impression: Peripheral edema Additional Impression: Leg pain, bilateral Disposition: ADMITTED INPATIENT Admitting Physician: CUBA () Condition: STABLE Referrals: TOAN REYES (PCP) PLEASE FOLLOW UP WITH YOUR DOCTOR FOR A REFERRAL TO [facility]OUND [facility]ARE [facility] ABOUT THE WOUND ON YOUR RIGHT LEG. Justicifation of Admission Dx: Justifications for Admission: Justification of Admission Dx: N/A VASU PAVON DO Nov 02, 2019 13:49
[2019-11-02] MEDS ORDERED: HYDR-3164 PO (13:57)
[2019-11-02] MEDS ORDERED: HYDROcodone/APAP 5/325MG 1 TAB TABLET PO ONE (15:15)
[2019-11-02 16:01] VITALS: BP 105/72
[2019-11-02] MEDS ORDERED: NON FORMULARY ITEM (Albuterol Sulfate (Proair Respiclick) 2 PUFF) IH PRN (17:00)
[2019-11-02] MEDS ORDERED: OXYC1TAB19 PO (17:00)
[2019-11-02] MEDS ORDERED: PROCHLORPERAZINE 5 MG TABLET. PO PRN (17:15)
[2019-11-02] MEDS ORDERED: oxyCODONE/APAP 7.5/325 1 TAB TABLET PO PRN (17:45)
[2019-11-02] MEDS: oxyCODONE/APAP 7.5/325 1 TAB TABLET PO PRN (17:47)
[2019-11-02] MEDS: DICLOFENAC SODIUM 1% TOPICAL GEL 100GM TUBE. TP SCH ×2 (17:47→20:56)
[2019-11-02 19:00] VITALS: BP 125/77
--- NOTE | 2019-11-02 19:15 | NUR ---
BIB WAS ADMITTED FROM EMERGENCY ROOM WITH COMPLAINTS OF BILATERAL LEG PAIN AND EDEMA. ADMISSION HISTORY IS COMPLETED. SHE WANTS TO EAT. FED AN ADA DIET SHE ATE APPROX 25%. AMARYL HELD RELATED TO BS BEING 100 AND EATING POORLY. HEALING OR HEALED AREA ON RIGHT UPPER KEITH AND LOWE LATERAL KEITH PICTURED AND PLACED IN THE CHART. MISSED BEDPAN SO A PUREWICK PLACED AND BIB AGREED TO THIS. PERCOCET OBTAINED AND GIVEN; DOZES AT SHORT INTERVALS
--- NOTE | 2019-11-02 19:59 | HP ---
ADMIT DATE: 11/02/2019 CHIEF COMPLAINT: Lower extremity swelling. HISTORY OF PRESENT ILLNESS: The patient is a pleasant 74-year-old female who resides at an assisted care facility. Basically, the people who work there, called the EMS to come pick her up because her legs are too swollen. She cannot walk. The legs are oozing a little bit. She also has some associated severe pain. I discussed the case with ER physician. We are going to admit the patient and try to get her edema and pain under control. PAST MEDICAL HISTORY: Obesity, CHF, asthma, arthritis, depression, diabetes, GERD, coronary artery disease, hypertension, TIAs, neuropathy, cholecystectomy, tonsillectomy, hysterectomy, previous tobacco abuse. ALLERGIES: CEPHALEXIN, CIPRO, EGGS, FLUCONAZOLE, LEVAQUIN, AND TETRACYCLINE. FAMILY HISTORY: Hypertension. SOCIAL HISTORY: She does not drink, smoke or take drugs (she quit smoking). MEDICATIONS: Reviewed, please refer to the MRAD. REVIEW OF SYSTEMS: GENERAL: No history of weight change, weakness or fevers. SKIN: No bruising, hair changes or rashes. EYES: No blurred, double or loss of vision. NOSE AND THROAT: No history of nosebleeds, hoarseness or sore throat. HEART: No history of palpitations, chest pain or shortness of breath on exertion. LUNGS: Denies cough, hemoptysis, wheezing or shortness of breath. GASTROINTESTINAL: Denies changes in appetite, nausea, vomiting, diarrhea or constipation. GENITOURINARY: No history of frequency, urgency, hesitancy or nocturia. NEUROLOGIC: Denies history of numbness, tingling, tremor or weakness. PSYCHIATRIC: No history of panic, anxiety or depression. ENDOCRINE: No history of heat or cold intolerance, polyuria or polydipsia. EXTREMITIES: She complains lower extremity edema and pain. PHYSICAL EXAMINATION: VITALS: Within normal limits and are stable. GENERAL: No apparent distress. Alert and oriented. HEENT: Normal cephalic atraumatic, external auditory canals are patent EYES: Extraocular muscles are intact, pupils are equally round and reactive to light and accommodation MUSCULOSKELETAL: Well developed, well nourished, good range of motion ENDOCRINE: No thyromegaly was palpated LYMPHATICS: No cervical chain or axillary nodes were noted HEMATOPOIETIC: No bruising NECK: Supple, no JVD, no thyromegaly was noted. LUNGS: Clear to auscultation in all lung rabago without rhonchi or wheezing. HEART: RRR, S1, S2 present. Peripheral pulses intact, no obvious murmurs were noted. ABDOMEN: Soft, nontender. Positive bowel sounds no organomegaly, normal bowel sounds. EXTREMITIES: She has 3+ edema. NEUROLOGIC: Normal speech, normal tone. A & O x3, moves all extremities, no obvious focal deficits. PSYCHIATRIC: Normal affect, normal mood. Stable. SKIN: No ulcerations or rashes, good skin turgor, no jaundice. VASCULAR: Good capillary refill, neurovascular bundle appears to be intact. LABORATORY DATA: Hemoglobin is 9.6. BUN is 22, creatinine 1.4, glucose 159. BNP is 212. Troponin 0.026. Albumin is low at 3. Chest x-ray shows mild congestive changes. ASSESSMENT AND PLAN: Lower extremity edema with probable acute on chronic systolic and diastolic heart failure with pulmonary edema on her chest. The patient has been admitted. We will consult Cardiology. Home meds, DVT prophylaxis, IV Lasix, p.r.n. pain meds. Full code. JAMILA ACUNA DO DR: TYRESE/manju JOB#: [id number] / [id number]
[2019-11-02] MEDS: LACTOBACILLUS RHAMNOSUS GG 1 CAPSULE. PO SCH (20:54)
[2019-11-02] MEDS: LABETALOL HCL 200 MG TABLET PO SCH (20:54)
[2019-11-02] MEDS: DICLOFENAC SODIUM 25 MG TABLET.DR PO SCH (20:54)
[2019-11-02] MEDS: ATORVASTATIN CALCIUM 10 MG TABLET. PO SCH (20:55)
[2019-11-02] MEDS: PREGABALIN 75 MG CAPSULE PO SCH (20:55)
[2019-11-02] MEDS: GLIMEPIRIDE 2 MG TABLET. PO SCH (20:55)
[2019-11-02] MEDS: miSOPROStol 200 MCG TABLET PO SCH (20:55)
[2019-11-02] MEDS: AMITRIPTYLINE HCL 10 MG TABLET. PO SCH (20:56)
[2019-11-02] MEDS: LIDOCAINE (700MG/PATCH) PATCH. TD SCH (20:56)
[2019-11-02] MEDS: MORPHINE SULFATE 2 MG/ML VIAL. IV PRN (21:46)
[2019-11-02 23:00] VITALS: BP 112/65
[2019-11-03] MEDS: MORPHINE SULFATE 2 MG/ML VIAL. IV PRN ×5 (00:58→15:47)
[2019-11-03 02:00] VITALS: BP 107/56
[2019-11-03] MEDS: oxyCODONE/APAP 7.5/325 1 TAB TABLET PO PRN ×5 (03:10→22:51)
[2019-11-03 07:03] VITALS: BP 107/58
[2019-11-03] MEDS: DICLOFENAC SODIUM 1% TOPICAL GEL 100GM TUBE. TP SCH ×4 (08:04→21:36)
[2019-11-03] MEDS: PANTOPRAZOLE 40 MG TABLET.DR. PO SCH (08:05)
[2019-11-03] MEDS: LACTOBACILLUS RHAMNOSUS GG 1 CAPSULE. PO SCH ×2 (08:05→21:24)
[2019-11-03] MEDS: PREGABALIN 75 MG CAPSULE PO SCH ×2 (08:05→21:24)
[2019-11-03] MEDS: DICLOFENAC SODIUM 25 MG TABLET.DR PO SCH ×2 (08:06→21:24)
[2019-11-03] MEDS: GLIMEPIRIDE 2 MG TABLET. PO SCH ×2 (08:06→21:24)
--- NOTE | 2019-11-03 08:31 | NUR ---
Per chart, pt with incr swelling in LEs and difficulty walking. Thought to have AECHF. Would benefit from PT/OT assessment to address limitations and ensure safe discharge disposition. Please write PT/OT eval and treat orders if you agree Addendum: 11/03/19 at 0831 by ABEL VELASQUEZ PT Amended: Links added.
--- NOTE | 2019-11-03 08:49 | EKG ---
[facility] [address] [place] [address] Test Date: 2019-11-03 Test Time: 08:43:11 Pat Name: BIB SANTIAGO Department: Room: [facility] Gender: F Fisher Gill Net: [place] : 1945 Requested By: YSABEL ARDON Order Number: [id number] Reading MD: Ben Figueroa MD Measurements Intervals [place] Rate: 76 P: 56 AR: 190 QRS: 5 QRSD: 84 T: 26 QT: 370 QTc: 420 Interpretive Statements SINUS RHYTHM Electronically Signed On 11-30-2019 14:26:37 CDT by Ben Figueroa MD
[2019-11-03] MEDS ORDERED: cloNIDine TTS-3 1 PATCH PATCH.TDWK TD SCH (09:00)
[2019-11-03] MEDS: PATCH REMOVAL. MC SCH (09:00)
[2019-11-03] MEDS: LABETALOL HCL 200 MG TABLET PO SCH ×2 (09:00→21:36)
--- NOTE | 2019-11-03 09:21 | PDOC2 ---
YSABEL ARDON VIDEO JOURNALIST 11/03/19 0921: CARDIAC CONSULT DATE OF CONSULT Date of Consult DATE: 11/03/19 TIME: 09:12 REASON FOR CONSULT Reason for Consult: CHF, abnormal CXR REFERRING PHYSICIAN Referring Physician: Lefty SOURCE Source: Chart review, Patient HISTORY OF PRESENT ILLNESS HISTORY OF PRESENT ILLNESS This is a pleasant 74 yo female admitted for complains of leg pain and swelling. She has chronic leg edema and it has been bothering her for quite sometime. Thius has limited her mobility. No complains of SOA or chest pain. No recent falls or injury. No hx of PAD and actaully she has 2+ pedal pulses with equal warmth to both legs. No wounds. Possible LE cellultiis. PAST MEDICAL HISTORY Past Medical History Cardiovascular: HTN, PSVT, chronic leg edema Pulmonary: Asthma CENTRAL NERVOUS SYSTEM: Peripheral neuropathy, TIA, Other (gait disorder) GI: GERD, dysphagia Hepatobiliary: Cholelithiasis Musculoskeletal: low back pain, Osteoarthritis,morbid obesity Infectious disease: No pertinent hx ENT: No pertinent hx Renal/: Chronic renal insuff, UTI Endocrine: Diabetes (2) PAST SURGICAL HISTORY Past Surgical History Cholecystectomy, Hysterectomy FAMILY HISTORY Family History: Heart Disease SOCIAL HISTORY Smoke: No ALCOHOL: none Drugs: None Lives: Alone CURRENT MEDICATIONS CURRENT MEDICATIONS Current Medications Medications (Trade) Dose Ordered Sig/Janay Route PRN Reason Start Time Stop Time Status Last Admin Dose Admin Fentanyl Citrate (Fentanyl 2ml Vial) 50 mcg 1X ONCE IVP 11/02/19 11:45 11/02/19 11:46 DC 11/02/19 12:00 Sodium Chloride 500 ml @ 500 mls/hr 1X ONCE IV 11/02/19 13:15 11/02/19 14:14 DC 11/02/19 13:14 Acetaminophen/ Hydrocodone Bitart (Lortab 5/325) 1 tab 1X ONCE PO 11/02/19 15:15 11/02/19 15:16 DC 11/02/19 15:16 Amitriptyline HCl (Elavil) 60 mg HS PO 11/02/19 21:00 11/02/19 20:56 Diclofenac Sodium (Voltaren) 1 kristin QID TP 11/02/19 18:00 11/03/19 08:04 Labetalol HCl (Trandate) 200 mg BID PO 11/02/19 21:00 11/02/19 20:54 Lactobacillus Rhamnosus (Culturelle) 1 cap BID PO 11/02/19 21:00 11/03/19 08:05 Lidocaine (Lidoderm) 1 patch HS TD 11/02/19 21:00 11/02/19 20:56 Pantoprazole Sodium (Protonix) 40 mg DAILYAC PO 11/03/19 07:30 11/03/19 08:05 Misoprostol (Cytotec 200mcg Tab) 200 mcg BID PO 11/02/19 21:00 11/02/19 20:55 Glimepiride (Amaryl) 4 mg BID PO 11/02/19 21:00 11/03/19 08:06 Atorvastatin Calcium (Lipitor) 10 mg QHS PO 11/02/19 21:00 11/02/19 20:55 Pregabalin (Lyrica) 150 mg BID PO 11/02/19 21:00 11/03/19 08:05 Diclofenac Sodium (Voltaren) 75 mg BID PO 11/02/19 21:00 11/03/19 08:06 Oxycodone/ Acetaminophen (Percocet 7.5/ 325) 2 tab PRN Q4HRS PRN PO PAIN SEVERE 11/02/19 17:45 11/03/19 03:10 Morphine Sulfate (Morphine Sulfate) 2 mg PRN Q2HR PRN IV PAIN 11/02/19 21:30 11/03/19 08:09 ALLERGIES ALLERGIES: Coded Allergies: cephalexin (Verified Allergy, Intermediate, 10/25/19) ciprofloxacin (Verified Allergy, Intermediate, 10/25/19) fluconazole (Verified Allergy, Intermediate, 10/25/19) levofloxacin (Verified Allergy, Intermediate, 10/25/19) tetracycline (Verified Allergy, Intermediate, 10/25/19) egg (Verified Adverse Reaction, Intermediate, 11/02/19) ROS Review of System 14 point ROS evaluated with pertinent positives noted per HPI PHYSICAL EXAM General: Alert, Oriented X3, Cooperative, No acute distress HEENT: Atraumatic, Mucous membr. moist/pink Lungs: Clear to auscultation, Normal air movement Heart: Regular rate, Normal S1, Normal S2, Other (2/6 systolic murmur to LLS border) Extremities: No cyanosis, Other (mild erythema to RLE, 2+ bilateral LE pitting edema with 2+ pedal pulses to both feet) Skin: No breakdown, No significant lesion Neuro: Normal speech, Sensation intact Psych/Mental Status: Mental status NL, Mood NL MUSCULOSKELETAL: Osteoarthritic changes both hands VITALS/I&O VITALS/I&O: Vital Signs Date Time Temp Pulse Resp B/P (MAP) Pulse Ox O2 Delivery O2 Flow Rate FiO2 11/03/19 08:09 20 11/03/19 07:03 98.9 80 107/58 (74) 96 Room Air 98.9 I & O 11/02/19 11/02/19 11/03/19 15:00 23:00 07:00 Intake Total 500 ml 200 ml Output Total 500 ml 1700 ml Balance 500 ml -300 ml -1700 ml LABS Lab: Laboratory Tests Test 11/02/19 09:30 11/02/19 09:55 11/02/19 16:12 11/02/19 20:22 Sodium Level 141 mmol/L (136-145) Potassium Level 4.9 mmol/L (3.5-5.1) Chloride Level 106 mmol/L (98-107) Carbon Dioxide Level 27 mmol/L (21-32) Anion Gap 8 (6-14) Blood Urea Nitrogen 22 mg/dL (7-20) H Creatinine 1.4 mg/dL (0.6-1.0) H Estimated GFR (Cockcroft-Gault) 44.4 BUN/Creatinine Ratio 16 (6-20) Glucose Level 159 mg/dL (70-99) H Calcium Level 9.4 mg/dL (8.5-10.1) Magnesium Level 2.0 mg/dL (1.8-2.4) Total Bilirubin 0.3 mg/dL (0.2-1.0) Aspartate Amino Transferase (AST) 29 U/L (15-37) Alanine Aminotransferase (ALT) 39 U/L (14-59) Alkaline Phosphatase 71 U/L (46-116) Troponin I Quantitative 0.026 ng/mL (0.000-0.055) HS-Osd-N-Type Natriuretic Peptide 212 pg/mL (0-449) Total Protein 6.6 g/dL (6.4-8.2) Albumin 3.0 g/dL (3.4-5.0) L Albumin/Globulin Ratio 0.8 (1.0-1.7) L White Blood Count 7.9 x10^3/uL (4.0-11.0) Red Blood Count 3.09 x10^6/uL (3.50-5.40) L Hemoglobin 9.6 g/dL (12.0-15.5) L Hematocrit 29.9 % (36.0-47.0) L Mean Corpuscular Volume 97 fL (79-100) Mean Corpuscular Hemoglobin 31 pg (25-35) Mean Corpuscular Hemoglobin Concent 32 g/dL (31-37) Red Cell Distribution Width 13.8 % (11.5-14.5) Platelet Count 228 x10^3/uL (140-400) Neutrophils (%) (Auto) 50 % (31-73) Lymphocytes (%) (Auto) 34 % (24-48) Monocytes (%) (Auto) 11 % (0-9) H Eosinophils (%) (Auto) 4 % (0-3) H Basophils (%) (Auto) 1 % (0-3) Neutrophils # (Auto) 3.9 x10^3/uL (1.8-7.7) Lymphocytes # (Auto) 2.7 x10^3/uL (1.0-4.8) Monocytes # (Auto) 0.8 x10^3/uL (0.0-1.1) Eosinophils # (Auto) 0.3 x10^3/uL (0.0-0.7) Basophils # (Auto) 0.1 x10^3/uL (0.0-0.2) Prothrombin Time 13.8 SEC (11.7-14.0) Prothrombin Time INR 1.1 (0.8-1.1) Activated Partial Thromboplast Time 30 SEC (24-38) Glucose (Fingerstick) 100 mg/dL (70-99) H 152 mg/dL (70-99) H Test 11/03/19 07:05 Glucose (Fingerstick) 178 mg/dL (70-99) H Laboratory Tests 11/02/19 09:55 Laboratory Tests 11/02/19 09:30 ECHOCARDIOGRAM ECHOCARDIOGRAM <Conclusion> The left ventricular systolic function is normal and the ejection fraction is within normal range. The Ejection Fraction is 55-60%. There is normal LV segmental wall motion. Doppler and Color Flow revealed mild tricuspid regurgitation. The PA pressure was estimated at 36 mmHg. The ascending aorta is mildly dilated at 3.4 cm. DATE: 01/18/19 0953 ASSESSMENT/PLAN ASSESSMENT/PLAN 1. Possible RLE cellulitis with leg pain/swelling with known chronic leg edema: negative DVT 10/24. Defer to PCP 2. Chronic diastolic CHF: leg edema likely from venous insufficiency/cellulitis with associated morbid obesity. 3. Ascending aortic dilation 4. HTN: controlled but at low end 5. Hx of CVA 6. DM2/DPN 7. Chronic low back pain with bilateral leg pain: possible radiculopathy 8. JENNIFFER on CKD 9. Suspect pulmonary HTN with likely underlying BRITTA Recommendations 1. TTE, repeat EKG with limb lead reversal 2. Lymphedema consult. mechanical compression is pt can tolerate 3. Secondary prevention measures. 4. Consider lowering BP regimen if remains at low end. Notable for labetolol and clonidine. Consider titrating off clonidine and switching to ACEi 5. 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 JAGRUTI DE LUNA MD 11/03/19 1612: CARDIAC CONSULT ASSESSMENT/PLAN ASSESSMENT/PLAN Patient seen and examined. Agree with PATTERN GRADER SUPERVISOR's assessment and plan. Edema appears to be secondary to venous insufficiency. Recent venous duplex scan did not show any DVT. We will consider venous reflux study as an outpatient. Chronic diastolic heart failure clinically well compensated. Agree with checking 2D echo to assess LV systolic function. Thank you for your consultation. YSABEL ARDON APRN Nov 03, 2019 09:21 JAGRUTI DE LUNA MD Nov 03, 2019 16:12
[2019-11-03 09:43] LABS: CALCIUM 9.5 mg/dL (8.5-10.1); CREATININE 1.3 mg/dL (0.6-1.0); GFR 48.3; MAGNESIUM 1.9 mg/dL (1.8-2.4); POTASSIUM 4.7 mmol/L (3.5-5.1)
--- NOTE | 2019-11-03 10:09 | NUR ---
SW following. Discussed with RN, pt is from [facility]. PT/OT being ordered, room air, ADA diet. SW will continue to follow.
--- NOTE | 2019-11-03 10:30 | NUR ---
transferred to P500 bed related to patient immobility and not able to turn. transferred to new bed with 4 person total lift
[2019-11-03 10:55] VITALS: BP 99/54
[2019-11-03] MEDS: miSOPROStol 200 MCG TABLET PO SCH ×2 (11:43→21:25)
--- NOTE | 2019-11-03 12:27 | PDOC ---
[employer]GRESS NOTE Chief Complaint Chief Complaint Edema with venous insufficiency and obesity History of heart failure CHF, asthma, arthritis, depression, diabetes, GERD, coronary artery disease, hypertension, TIAs, neuropathy, cholecystectomy, tonsillectomy, hysterectomy, previous tobacco abuse. History of Present Illness History of Present Illness 11/03/2019 Patient seen and examined She is resting with no apparent distress Chart reviewed Discussed with RN Vitals/I&O Vitals/I&O: Vital Signs Date Time Temp Pulse Resp B/P (MAP) Pulse Ox O2 Delivery O2 Flow Rate FiO2 11/03/19 11:43 20 Room Air 11/03/19 11:00 96 11/03/19 10:55 99.1 72 99/54 (69) 99.1 I & O 11/02/19 11/02/19 11/03/19 15:00 23:00 07:00 Intake Total 500 ml 200 ml Output Total 500 ml 1700 ml Balance 500 ml -300 ml -1700 ml Physical Exam General: No acute distress Heart: Regular rate Lungs: Clear Abdomen: Normal bowel sounds Extremities: No clubbing, Other (2-3+ edema) Skin: No rashes Labs Labs: Laboratory Tests Test 11/02/19 16:12 11/02/19 20:22 11/03/19 07:05 11/03/19 09:00 Glucose (Fingerstick) 100 mg/dL (70-99) 152 mg/dL (70-99) 178 mg/dL (70-99) Sodium Level 140 mmol/L (136-145) Potassium Level 4.7 mmol/L (3.5-5.1) Chloride Level 107 mmol/L (98-107) Carbon Dioxide Level 25 mmol/L (21-32) Anion Gap 8 (6-14) Blood Urea Nitrogen 19 mg/dL (7-20) Creatinine 1.3 mg/dL (0.6-1.0) Estimated GFR (Cockcroft-Gault) 48.3 Glucose Level 188 mg/dL (70-99) Calcium Level 9.5 mg/dL (8.5-10.1) Magnesium Level 1.9 mg/dL (1.8-2.4) Thyroid Stimulating Hormone (TSH) 1.093 uIU/mL (0.358-3.74) Test 11/03/19 11:32 Glucose (Fingerstick) 120 mg/dL (70-99) Assessment and Plan Assessmemt and Plan Problems Medical Problems: (1) Leg pain, bilateral Status: Acute (2) Peripheral edema Status: Acute Edema with venous insufficiency and obesity History of heart failure CHF, asthma, arthritis, depression, diabetes, GERD, coronary artery disease, hypertension, TIAs, neuropathy, cholecystectomy, tonsillectomy, hysterectomy, previous tobacco abuse. Plan Cardiac monitoring IV Lasix Home meds DVT prophylaxis Full code PT OT Trend labs Long-term prognosis guarded Comment Review of Relevant I have reviewed the following items jorge luis (where applicable) has been applied. Medications: Current Medications Medications (Trade) Dose Ordered Sig/Janay Route PRN Reason Start Time Stop Time Status Last Admin Dose Admin Sodium Chloride 500 ml @ 500 mls/hr 1X ONCE IV 11/02/19 13:15 11/02/19 14:14 DC 11/02/19 13:14 Acetaminophen/ Hydrocodone Bitart (Lortab 5/325) 1 tab 1X ONCE PO 11/02/19 15:15 11/02/19 15:16 DC 11/02/19 15:16 Amitriptyline HCl (Elavil) 60 mg HS PO 11/02/19 21:00 11/02/19 20:56 Diclofenac Sodium (Voltaren) 1 kristin QID TP 11/02/19 18:00 11/03/19 08:04 Labetalol HCl (Trandate) 200 mg BID PO 11/02/19 21:00 11/02/19 20:54 Lactobacillus Rhamnosus (Culturelle) 1 cap BID PO 11/02/19 21:00 11/03/19 08:05 Lidocaine (Lidoderm) 1 patch HS TD 11/02/19 21:00 11/02/19 20:56 Pantoprazole Sodium (Protonix) 40 mg DAILYAC PO 11/03/19 07:30 11/03/19 08:05 Misoprostol (Cytotec 200mcg Tab) 200 mcg BID PO 11/02/19 21:00 11/03/19 11:43 Glimepiride (Amaryl) 4 mg BID PO 11/02/19 21:00 11/03/19 08:06 Atorvastatin Calcium (Lipitor) 10 mg QHS PO 11/02/19 21:00 11/02/19 20:55 Pregabalin (Lyrica) 150 mg BID PO 11/02/19 21:00 11/03/19 08:05 Miscellaneous (Lidoderm Patch Removal) 1 ea DAILY MC 11/03/19 09:00 11/03/19 09:00 Diclofenac Sodium (Voltaren) 75 mg BID PO 11/02/19 21:00 11/03/19 08:06 Oxycodone/ Acetaminophen (Percocet 7.5/ 325) 2 tab PRN Q4HRS PRN PO PAIN SEVERE 11/02/19 17:45 11/03/19 10:10 Morphine Sulfate (Morphine Sulfate) 2 mg PRN Q2HR PRN IV PAIN 11/02/19 21:30 11/03/19 11:43 Justicifation of Admission Dx: Justifications for Admission: Justification of Admission Dx: N/A JAMILA ACUNA III DO Nov 03, 2019 12:27
--- NOTE | 2019-11-03 14:30 | NUR ---
complains of iv site (morphine) burning when infused. attempted to start iv in left wrist area. unable to thread.
[2019-11-03 14:51] VITALS: BP 104/54
--- NOTE | 2019-11-03 17:00 | NUR ---
unable to restart iv; dry cleaning supervisor notified. anesthesia notified.
[2019-11-03 19:00] VITALS: BP 105/53
[2019-11-03] MEDS: ATORVASTATIN CALCIUM 10 MG TABLET. PO SCH (21:25)
[2019-11-03] MEDS: AMITRIPTYLINE HCL 10 MG TABLET. PO SCH (21:35)
[2019-11-03] MEDS: LIDOCAINE (700MG/PATCH) PATCH. TD SCH (21:36)
--- NOTE | 2019-11-03 22:30 | NUR ---
Anesthesia here to attempt IV start and stated he was unable to obtain IV assess. Patient has oral pain medication ordered. Will use oral pain medication and call for IM or SQ pain medication if Patient unable to tolerate pain with oral pain medication.
[2019-11-03 23:03] VITALS: BP 160/80
--- NOTE | 2019-11-04 02:20 | NUR ---
Patient has been resting quietly eyes closed post oral pain medication given earlier. Will monitor.
[2019-11-04 03:00] VITALS: BP 160/80
[2019-11-04] MEDS: oxyCODONE/APAP 7.5/325 1 TAB TABLET PO PRN ×3 (07:52→20:36)
[2019-11-04] MEDS: PANTOPRAZOLE 40 MG TABLET.DR. PO SCH (07:52)
[2019-11-04 07:57] VITALS: BP 125/65
[2019-11-04] MEDS: GLIMEPIRIDE 2 MG TABLET. PO SCH ×2 (08:26→20:37)
[2019-11-04] MEDS: miSOPROStol 200 MCG TABLET PO SCH ×2 (08:26→20:37)
[2019-11-04] MEDS: DICLOFENAC SODIUM 25 MG TABLET.DR PO SCH ×2 (08:26→20:36)
[2019-11-04] MEDS: LABETALOL HCL 200 MG TABLET PO SCH ×2 (08:27→20:38)
[2019-11-04] MEDS: LACTOBACILLUS RHAMNOSUS GG 1 CAPSULE. PO SCH ×2 (08:27→20:37)
[2019-11-04] MEDS: PREGABALIN 75 MG CAPSULE PO SCH ×2 (08:28→20:36)
[2019-11-04] MEDS: DICLOFENAC SODIUM 1% TOPICAL GEL 100GM TUBE. TP SCH ×4 (08:59→21:00)
[2019-11-04] MEDS: PATCH REMOVAL. MC SCH (08:59)
[2019-11-04] MEDS: MORPHINE SULFATE 2 MG/ML VIAL. IV PRN ×3 (10:01→18:45)
[2019-11-04 11:12] VITALS: BP 132/72
--- NOTE | 2019-11-04 12:02 | PDOC ---
YSABEL ARDON RUBBER MIXER 11/04/19 1202: CARDIO Progress Notes Date and Time Date of Service 11/04/2019 Time of Evaluation 1020 Subjective Subjective: No Chest Pain, No shortness of breath, No Palpitations, Other (still has some leg discomfort) Vitals Vitals Vital Signs Date Time Temp Pulse Resp B/P (MAP) Pulse Ox O2 Delivery O2 Flow Rate FiO2 11/04/19 11:12 98.3 82 20 132/72 (92) 94 Room Air 98.3 Weight Weight [ ] Input and Output Intake and Output Intake and Output 11/04/19 07:00 Intake Total 1930 ml Output Total 2130 ml Balance -200 ml Intake Oral 1930 ml Output Urine Total 2130 ml Laboratory Labs Laboratory Tests Test 11/03/19 16:48 11/03/19 19:51 11/04/19 07:44 11/04/19 11:51 Glucose (Fingerstick) 109 mg/dL (70-99) 134 mg/dL (70-99) 144 mg/dL (70-99) 115 mg/dL (70-99) Physical Exam HEENT: Neck Supple W Full Motion Chest: Symmetric LUNGS: Clear to Auscultation Heart: RRR Abdomen: Soft N/T, Other (obese) Extremities: Other (2+ bilateral LE pitting edema, 2+ bilateral pedal pulses, no wounds) Neurology: alert, oriented, follow commands Assessment Assessment 1. Possible RLE cellulitis with leg pain/swelling with known chronic leg edema: negative DVT 10/24. Defer to PCP 2. Chronic diastolic CHF: leg edema likely from venous insufficiency/cellulitis with associated morbid obesity. 3. Ascending aortic dilation 4. HTN: controlled but at low end 5. Hx of CVA 6. DM2/DPN 7. Chronic low back pain with bilateral leg pain: possible radiculopathy 8. JENNIFFER on CKD 9. Suspect pulmonary HTN with likely underlying BRITTA Recommendations 1. Awaiting TTE. May need to reevaluate her knees appears to have effusion and likely severe OA adding to her decrease mobility and pain and swelling Defer to PCP 2. Lymphedema team following. Will plan for outpt venous reflux study 3. Secondary prevention measures. 4. Follow up with Dr. De Luna as scheduled on December 08 at 1:45 PM Justicifation of Admission Dx: Justifications for Admission: Justification of Admission Dx: N/A JAGRUTI DE LUNA MD 11/05/19 0917: CARDIO Progress Notes Assessment Assessment Patient seen and examined 11/04/19. Agree with WIRELESS CONSULTANT's assessment and plan. Edema most probably secondary to venous insufficiency. 2D echo showed normal LV systolic function. Plan outpatient venous reflux study for further evaluation. YSABEL ARDON APRN Nov 04, 2019 12:02 JAGRUTI DE LUNA MD Nov 05, 2019 09:17
--- NOTE | 2019-11-04 12:04 | CARD ---
MR#: [id number] Date of Study: 11/04/2019 Ordering Physician: YSABEL ARDON, Referring Physician: YSABEL ARDON, Tech: Angelina Nelson [facility] APPROVED REPORT EXAM: Two-dimensional and M-mode echocardiogram with Doppler and color Doppler. Other Information Quality : Good INDICATION Congestive Heart Failure 2D DIMENSIONS RVDd2.5 (2.9-3.5cm)Left Atrium(2D)4.1 (1.6-4.0cm) IVSd1.2 (0.7-1.1cm)Aortic Root(2D)3.1 (2.0-3.7cm) LVDd5.5 (3.9-5.9cm)LVOT Diameter2.3 (1.8-2.4cm) PWd1.1 (0.7-1.1cm)LVDs3.3 (2.5-4.0cm) FS (%) 30.0 %SV99.7 ml LVEF(%)60.0 (>50%) Aortic Valve AoV Peak Tarun.117.3cm/sAoV VTI20.3cm AO Peak GR.5.5mmHgLVOT VTI 14.12cm AO Mean GR.3mmHgAVA (VTI)2.89cm2 Mitral Valve MV E Xpxxrapz70.9cm/sMV DECEL [id number] MV A Gsicefrt94.8cm/sE/A Ratio0.8 TDI Lateral E' P. V10.49cm/sMedial E' P. V6.63cm/s E/Lateral E'5.3E/Medial E'8.4 Tricuspid Valve TR P. [id number] [id number] TR Peak Gr.[id number] LEFT VENTRICLE The left ventricle is normal size. There is mild concentric left ventricular hypertrophy. The left ve ntricular systolic function is normal. The Ejection Fraction is 55-60%. There is normal LV segmental wall motion. Transmitral Doppler flow pattern is Grade I-abnormal relaxation pattern. RIGHT VENTRICLE The right ventricle is normal size. The right ventricular systolic function is normal. ATRIA The left atrium is mildly dilated. The right atrium is mildly dilated. The interatrial septum is inta ct with no evidence for an atrial septal defect or patent foramen ovale as noted on 2-D or Doppler im aging. AORTIC VALVE The aortic valve is calcified but opens well. Doppler and Color Flow revealed no significant aortic r egurgitation. There is no significant aortic valvular stenosis. MITRAL VALVE The mitral valve is calcified but opens well. There is no evidence of mitral valve prolapse. There is no mitral valve stenosis. Doppler and Color Flow revealed no mitral valve regurgitation noted. TRICUSPID VALVE The tricuspid valve is normal in structure and function. Doppler and Color Flow revealed mild tricusp id regurgitation. There is mild pulmonary hypertension. The PA pressure was estimated at 38 mmHg. The re is no tricuspid valve stenosis. PULMONIC VALVE The pulmonic valve is not well visualized. Doppler and Color Flow revealed no pulmonic valvular regur gitation. There is no pulmonic valvular stenosis. GREAT VESSELS The aortic root is normal in size. The ascending aorta is not well seen. The IVC is normal in size an d collapses >50% with inspiration. PERICARDIAL EFFUSION There is no evidence of significant pericardial effusion. Critical Notification Critical Value: No <Conclusion> The left ventricular systolic function is normal. The Ejection Fraction is 55-60%. There is normal LV segmental wall motion. Transmitral Doppler flow pattern is Grade I-abnormal relaxation pattern. Mild tricuspid regurgitation. The PA pressure was estimated at 38 mmHg. There is no evidence of significant pericardial effusion. Signed by : Ezequiel Mckeon, Electronically Approved : 11/04/2019 12:03:35
--- NOTE | 2019-11-04 12:07 | PDOC ---
PROGRESS NOTES Chief Complaint Chief Complaint Edema with venous insufficiency and obesity History of heart failure CHF, asthma, arthritis, depression, diabetes, GERD, coronary artery disease, hypertension, TIAs, neuropathy, cholecystectomy, tonsillectomy, hysterectomy, previous tobacco abuse. History of Present Illness History of Present Illness 11/03, I called for a Rheum consult for RA, poor control, on modulator, no prednisone, Dr. Navarro is out of town will consult physiatry, cont PO pain meds PT and OT as able weakness is debilitating, pain is limiting and contributes 11/03/2019 Patient seen and examined She is resting with no apparent distress Chart reviewed Discussed with RN Vitals Vitals Vital Signs Date Time Temp Pulse Resp B/P (MAP) Pulse Ox O2 Delivery O2 Flow Rate FiO2 11/04/19 11:12 98.3 82 20 132/72 (92) 94 Room Air 98.3 Physical Exam General: Alert, Oriented X3, Cooperative, No acute distress Heart: Regular rate, Normal S1, Normal S2, Other (2/6 systolic murmur to LLS border) Lungs: Clear Abdomen: Normal bowel sounds Extremities: No cyanosis, Other (mild erythema to RLE, 2+ bilateral LE pitting edema with 2+ pedal pulses to both feet) Skin: No breakdown, No significant lesion Labs LABS Laboratory Tests Test 11/03/19 16:48 11/03/19 19:51 11/04/19 07:44 11/04/19 11:51 Glucose (Fingerstick) 109 mg/dL (70-99) 134 mg/dL (70-99) 144 mg/dL (70-99) 115 mg/dL (70-99) Assessment and Plan Assessmemt and Plan Problems Medical Problems: (1) Leg pain, bilateral Status: Acute (2) Peripheral edema Status: Acute Comment Review of Relevant I have reviewed the following items jorge luis (where applicable) has been applied. Labs Laboratory Tests Test 11/02/19 16:12 11/02/19 20:22 11/03/19 07:05 11/03/19 09:00 Glucose (Fingerstick) 100 mg/dL (70-99) 152 mg/dL (70-99) 178 mg/dL (70-99) Sodium Level 140 mmol/L (136-145) Potassium Level 4.7 mmol/L (3.5-5.1) Chloride Level 107 mmol/L (98-107) Carbon Dioxide Level 25 mmol/L (21-32) Anion Gap 8 (6-14) Blood Urea Nitrogen 19 mg/dL (7-20) Creatinine 1.3 mg/dL (0.6-1.0) Estimated GFR (Cockcroft-Gault) 48.3 Glucose Level 188 mg/dL (70-99) Calcium Level 9.5 mg/dL (8.5-10.1) Magnesium Level 1.9 mg/dL (1.8-2.4) Thyroid Stimulating Hormone (TSH) 1.093 uIU/mL (0.358-3.74) Test 11/03/19 11:32 11/03/19 16:48 11/03/19 19:51 11/04/19 07:44 Glucose (Fingerstick) 120 mg/dL (70-99) 109 mg/dL (70-99) 134 mg/dL (70-99) 144 mg/dL (70-99) Test 11/04/19 11:51 Glucose (Fingerstick) 115 mg/dL (70-99) Laboratory Tests Test 11/03/19 16:48 11/03/19 19:51 11/04/19 07:44 11/04/19 11:51 Glucose (Fingerstick) 109 mg/dL (70-99) 134 mg/dL (70-99) 144 mg/dL (70-99) 115 mg/dL (70-99) Medications Current Medications Fentanyl Citrate (Fentanyl 2ml Vial) 50 mcg 1X ONCE IVP Last administered on 11/02/19at 12:00; Start 11/02/19 at 11:45; Stop 11/02/19 at 11:46; Status DC Sodium Chloride 500 ml @ 500 mls/hr 1X ONCE IV Last administered on 11/02/19at 13:14; Start 11/02/19 at 13:15; Stop 11/02/19 at 14:14; Status DC Acetaminophen/ Hydrocodone Bitart (Lortab 5/325) 1 tab 1X ONCE PO Last administered on 11/02/19at 15:16; Start 11/02/19 at 15:15; Stop 11/02/19 at 15:16; Status DC Amitriptyline HCl (Elavil) 60 mg HS PO Last administered on 11/03/19at 21:35; Start 11/02/19 at 21:00 Clonidine HCl (Catapres Tts-3) 1 patch WEEKLY TD ; Start 11/03/19 at 09:00 Diclofenac Sodium (Voltaren) 1 becca QID TP Last administered on 11/03/19at 18:21; Start 11/02/19 at 18:00 Labetalol HCl (Trandate) 200 mg BID PO Last administered on 11/04/19 08:27; Start 11/02/19 at 21:00 Lactobacillus Rhamnosus (Culturelle) 1 cap BID PO Last administered on 11/04/19 08:27; Start 11/02/19 at 21:00 Lidocaine (Lidoderm) 1 patch HS TD Last administered on 11/03/19 21:36; Start 11/02/19 at 21:00 Pantoprazole Sodium (Protonix) 40 mg DAILYAC PO Last administered on 11/04/19 07:52; Start 11/03/19 at 07:30 Non-Formulary Medication (Albuterol Sulfate (Proair Respiclick)) 2 puff PRN Q4- 6HRS PRN IH shortness of breath; Start 11/02/19 at 17:00; Status UNV Misoprostol (Cytotec 200mcg Tab) 200 mcg BID PO Last administered on 11/04/19 08:26; Start 11/02/19 at 21:00 Glimepiride (Amaryl) 4 mg BID PO Last administered on 11/04/19at 08:26; Start 11/02/19 at 21:00 Atorvastatin Calcium (Lipitor) 10 mg QHS PO Last administered on 11/03/19at 21:25; Start 11/02/19 at 21:00 Pregabalin (Lyrica) 150 mg BID PO Last administered on 11/04/19 08:28; Start 11/02/19 at 21:00 Prochlorperazine Maleate (Compazine) 10 mg PRN Q8HRS PRN PO NAUSEA/VOMITING; Start 11/02/19 at 17:15 Miscellaneous (Lidoderm Patch Removal) 1 ea DAILY MC Last administered on 11/04/19 08:59; Start 11/03/19 at 09:00 Diclofenac Sodium (Voltaren) 75 mg BID PO Last administered on 11/04/19 08:26; Start 11/02/19 at 21:00 Albuterol Sulfate (Ventolin Neb Soln) 2.5 mg PRN Q4HRS PRN NEB SHORTNESS OF BREATH; Start 11/02/19 at 17:15 Oxycodone/ Acetaminophen (Percocet 7.5/ 325) 1 tab PRN Q4HRS PRN PO PAIN MILD TO MOD; Start 11/02/19 at 17:45 Oxycodone/ Acetaminophen (Percocet 7.5/ 325) 2 tab PRN Q4HRS PRN PO PAIN SEVERE Last administered on 11/04/19at 07:52; Start 11/02/19 at 17:45 Morphine Sulfate (Morphine Sulfate) 2 mg PRN Q2HR PRN IV PAIN Last administered on 11/04/19at 10:01; Start 11/02/19 at 21:30 Active Scripts Active Lidocaine PATCH (Lidocaine) 1 Each Adh..patch 1 Patch TD HS 30 Days Culturelle (Lactobacillus Rhamnosus Gg) 1 Each Cap.sprink 1 Cap PO BID 30 Days Pantoprazole Sodium (Pantoprazole Sodium) 40 Mg Tablet.dr 40 Mg PO DAILYAC 30 Days Polyethylene Glycol 3350 17 Gm Powd.pack 17 Gm PO PRN BID PRN 30 Days Amlodipine Besylate 10 Mg Tablet 10 Mg PO DAILY 30 Days Hydralazine Hcl 25 Mg Tablet 25 Mg PO BID 30 Days Clonidine Tts-3 (Clonidine) 1 Each Patch.tdwk 1 Patch TD WEEKLY 30 Days Amox Tr-K Clv 875-125 Mg Tab (Amoxicillin/Potassium Clav) 1 Each Tablet 1 Tab PO BID 10 Days Aspirin 81 Mg Tab.chew 81 Mg PO DAILYWBKFT 30 Days Reported Percocet 7.5-325 Mg Tablet (Oxycodone/Acetaminophen) 1 Each Tablet 2 Tab PO PRN Q4HRS PRN Percocet 7.5-325 Mg Tablet (Oxycodone/Acetaminophen) 1 Each Tablet 1 Tab PO PRN Q4HRS PRN Voltaren (Diclofenac Sodium) 100 Gm Gel..gram. 1 Gm TP QID 30 Days apply to affected area(s) Triamcinolone Acetonide 0.1% Cream (Triamcinolone Acetonide) 15 Gm Cream..g. 1 Becca TP TID Tramadol Hcl 100 Mg Tbmp.24hr 1 Tab PO PRN Q6HRS PRN MDD 1 Tablet(s) 30 Days Proair Respiclick (Albuterol Sulfate) 90 Mcg Aer.pow.ba 2 Puff IH PRN Q4-6HRS PRN Lyrica (Pregabalin) 150 Mg Capsule 1 Cap PO BID Emu-Lac Hydrating Cream (Ammonium Lactate/Emu Oil) 120 Ml Cream.ml. 120 Ml TP DAILY Arthrotec 75 Mg-200 Mcg Tab (Diclofenac Sodium/Misoprostol) 1 Each Tab.ir.dr 1 Tab PO BID Amitriptyline Hcl 10 Mg Tablet 60 Mg PO HS Glimepiride 4 Mg Tablet 1 Tab PO BID Compazine (Prochlorperazine Maleate) 10 Mg Tablet 10 Mg PO PRN Q8HRS PRN Pravastatin Sodium 40 Mg Tablet 1 Tab PO QHS Labetalol Hcl 200 Mg Tablet 1 Tab PO BID Vitals/I & O Vital Sign - Last 24 Hours 11/03/19 11/03/19 11/03/19 11/03/19 14:51 16:15 19:00 19:20 Temp 98.0 98.2 98.0 98.2 Pulse 78 82 Resp 18 21 18 B/P (MAP) 104/54 (71) 105/53 (70) Pulse Ox 95 95 92 92 O2 Delivery Room Air Room Air Room Air Room Air 11/03/19 11/03/19 11/03/19 11/03/19 20:30 21:36 22:51 23:03 Temp 98.1 98.1 Pulse 82 94 Resp 18 20 B/P (MAP) 118/63 160/80 (106) Pulse Ox 92 94 O2 Delivery Room Air Room Air Room Air 11/03/19 11/04/19 11/04/19 11/04/19 23:51 03:00 07:50 07:52 Temp 98.1 98.1 Pulse 94 Resp 16 20 B/P (MAP) 160/80 (106) Pulse Ox 94 94 O2 Delivery Room Air Room Air Room Air Room Air 11/04/19 11/04/19 11/04/19 11/04/19 07:57 08:27 08:58 10:01 Temp 98.3 98.3 Pulse 79 79 Resp 20 B/P (MAP) 125/65 (85) 125/65 Pulse Ox 93 93 O2 Delivery Room Air Room Air Room Air 11/04/19 11/04/19 10:35 11:12 Temp 98.3 98.3 Pulse 82 Resp 20 B/P (MAP) 132/72 (92) Pulse Ox 94 O2 Delivery Room Air Room Air Intake and Output 11/03/19 11/03/19 11/04/19 15:00 23:00 07:00 Intake Total 480 ml 1280 ml 170 ml Output Total 180 ml 1950 ml Balance 480 ml 1100 ml -1780 ml Justicifation of Admission Dx: Justifications for Admission: Justification of Admission Dx: N/A DENISE LENNON MD Nov 04, 2019 12:07
[2019-11-04] MEDS ORDERED: BUPIVACAINE MPF 0.25% 10 ML VIAL. IJ ONE (13:30)
[2019-11-04] MEDS ORDERED: methylPREDNISolone ACETATE 40 MG/ML VIAL. IM ONE ×2 (13:30)
[2019-11-04] MEDS ORDERED: MINERAL OIL/PETROLATUM TOPICAL CREAM 113GM JAR. TP PRN (13:30)
--- NOTE | 2019-11-04 13:46 | CONS ---
DATE OF CONSULTATION: 11/04/2019 ATTENDING PHYSICIAN: Enrique Olea DO The patient was seen at the request of Dr. Humphrey for evaluation of both her knee and back pain. FAMILY PHYSICIAN: Dawit Turk MD HISTORY OF PRESENT ILLNESS: This is a 74-year-old female who has been residing at [facility]. The patient was admitted on 11/02/2019 with lower extremity swelling with associated wheezing. The patient admits lower back and knee pain and she has not walked in several weeks. The patient with known obesity, congestive heart failure, asthmatic bronchitis, degenerative joint disease, depression, diabetes mellitus, gastroesophageal reflux disease, coronary artery disease, hypertension, transient ischemic attacks, neuropathy, cholecystectomy, tonsillectomy, hysterectomy, previous tobacco use. ALLERGIES: KNOWN ALLERGIC TO CEPHALEXIN, CIPRO, EGGS FLUCONAZOLE, LEVAQUIN, AND TETRACYCLINE. FAMILY HISTORY: The patient had family history of hypertension. SOCIAL HISTORY: She quit smoking in the past. The patient is being treated for lower extremity edema, probably acute on chronic systolic and diastolic heart failure with pulmonary edema. She had echocardiogram, which revealed left ventricular systolic function is normal, ejection fraction 55-60%, normal LV segmental wall motion, mild tricuspid regurgitation, PA pressure was estimated at 38 mmHg. No evidence of any pericardial effusion. She is being considered as having possible lower extremity cellulitis of right lower extremity with chronic edema, negative for DVT on 10/25/2019. PHYSICAL EXAMINATION: On physical examination today revealed an elderly female. She is alert, oriented to time, place, person and circumstance, follows commands appropriately, moves all 4 extremities voluntarily. She had significant stiffness of both hip joints with crepitus on range of motion and mild effusion. She had edema of her feet and legs. She had painful range of motion of both hip joints. She had painful limited movements of her lumbar spine. Straight leg raising test is negative bilaterally. She had dressing to her legs. She seemed to have equal perception of touch and pinprick sensation bilaterally. Deep tendon reflexes are absent at both knees and ankles. I have not tested her transfers or ambulation skills at this time. ASSESSMENT AND PLAN: Elderly female with chronic lower back pain from degenerative disk disease of lumbar vertebrae, degenerative joint disease of both knees with pain, diabetes mellitus with peripheral neuropathy, chronic lower extremity edema in a patient with known chronic venous insufficiency, history of old cerebrovascular accident, hypertension, acute kidney injury superimposed on chronic kidney disease, obesity. RECOMMENDATIONS: At her request, I have injected both knees under aseptic skin technique after skin preparation using alcohol swab, using 2 mL of 40 mg per 1 mL methylprednisone solution mixed with 4 mL of 0.25% Marcaine solution to both knees and she tolerated the procedure satisfactorily without any side effects. To get her up as tolerated, to consider injecting painful lower back area if needed. Dr. Humphrey, I appreciate asking me to participate in the care of this interesting patient. I will be glad to see her for followup with you on an as needed basis. DOC EPDRO MD DR: KRISTY/manju JOB#: [id number] / [id number] TOAN Harris MD
--- NOTE | 2019-11-04 14:33 | NUR ---
wound care patient seen per wound care consult. patient has a right lower leg stasis ulcer, the wound was cleaned, measured, pictured and redressed with recommendations of Medihoney isaac with an abd pad,Kerlix and tape, recommendations of changing every 3 days. Extra dressing supplied left in patients room. patient has no other wounds noted at this time. patient educated about pressure prevention, patient currently on a P500 bed. notified RN about the POC and wound care will continue to f/u for changes.
--- NOTE | 2019-11-04 15:02 | NUR ---
NATASHA following. Discussed with RN, pt from [facility]. PT recommending SNU, NATASHA met with pt (no isolation precautions at the time), pt declining SNU, wants to go back to [facility] with home health. Pt reported she has [facility]. NATASHA discussed with Dr. Humphrey about anticipated discharge date - awaiting response. RN notified.
--- NOTE | 2019-11-04 15:34 | PDOC ---
Infectious Disease Note Vital Sign Vital Signs Vital Signs Date Time Temp Pulse Resp B/P (MAP) Pulse Ox O2 Delivery O2 Flow Rate FiO2 11/04/19 14:05 Room Air 11/04/19 12:47 94 11/04/19 11:12 98.3 82 20 132/72 (92) 98.3 Labs Lab Laboratory Tests Test 11/03/19 16:48 11/03/19 19:51 11/04/19 07:44 11/04/19 11:51 Glucose (Fingerstick) 109 mg/dL (70-99) 134 mg/dL (70-99) 144 mg/dL (70-99) 115 mg/dL (70-99) Objective Assessment Venous stasis ulcer of right lower extremity Chronic edema lower extremities Multiple abx allergies DJD of knees s/p steroid injection bilaterally, 11/03 Morbid obesity CKD CHF Diabetes with neuropathy Plan Plan of Care Local wound care as directed Leg elevation Edema control Thank you RLE has some warmth so will dose Zyvox She denies abx allergies reviewed with her and has had zosyn/Augmentin and Rocephin in March Attending Co-Sign Attending Co-Sign The patient was seen and interviewed as well as examined at the bedside. The chart was reviewed. The case was discussed. Agree with the plan of care. TJ NOVA APRN Nov 04, 2019 15:34 DOROTHEA BRAMBILA MD Nov 04, 2019 18:43
[2019-11-04 15:47] VITALS: BP 131/66
[2019-11-04 19:00] VITALS: BP 154/82
[2019-11-04] MEDS: LINEZOLID 600 MG TABLET PO SCH (20:37)
[2019-11-04] MEDS: ATORVASTATIN CALCIUM 10 MG TABLET. PO SCH (20:37)
[2019-11-04] MEDS: LIDOCAINE (700MG/PATCH) PATCH. TD SCH (20:41)
--- NOTE | 2019-11-04 22:03 | CONS ---
DATE OF CONSULTATION: 11/04/2019 REQUESTING PHYSICIAN: Dr. Dumont. REASON FOR CONSULT: Right leg wound. HISTORY OF PRESENT ILLNESS: This patient is a 74-year-old -[place] female with a PMH, morbid obesity, chronic diastolic heart failure and venous insufficiency. She presented with complaints of increased swelling and pain in lower extremities bilaterally associated with difficulty walking. She had developed blisters on her right leg that have since ruptured. A recent venous Doppler ultrasound showed no evidence of DVT. The patient denies fevers, chills, sweats or body aches. PAST MEDICAL HISTORY: Chronic diastolic heart failure, morbid obesity, venous insufficiency, transient ischemic attack, peripheral neuropathy, hypertension, GERD, degenerative joint disease, diabetes mellitus type 2, chronic kidney disease. PAST SURGICAL HISTORY: Cholecystectomy and hysterectomy. SOCIAL HISTORY: The patient lives in assisted living facility. She is a former smoker. ALLERGIES: Multiple antibiotic allergies are listed. However, the patient says she is not allergic to anything and she has tolerated antibiotics well in the past including Augmentin, Zosyn and Rocephin. MEDICATIONS: Reviewed on the MAR and includes a Depo-Medrol injection. REVIEW OF SYSTEMS: Per HPI, otherwise all other review of systems are negative. PHYSICAL EXAMINATION: VITAL SIGNS: Temperature 98.3, blood pressure 132/72, heart rate 82, respiratory rate 20, pulse oximetry 94% on room air. GENERAL: The patient is propped up in bed, alert, in no apparent distress. HEENT: Normal conjunctivae. Oropharynx pink and moist. No lesions seen. NECK: Supple. LUNGS: Clear to auscultation. HEART: S1, S2 regular. ABDOMEN: Obese, soft, nontender with bowel sounds present. GENITOURINARY: PureWick in place. EXTREMITIES: 2+ edema to lower extremities bilaterally. On the lateral aspect of her right leg, she has a few superficial ulcerations associated with warmth and mild redness. SKIN: Warm to touch. No signs of rash. NEUROLOGIC: Alert and answering questions appropriately. LABORATORY DATA: From 11/02/2019, WBC 7.9, hemoglobin 9.6, platelets 228,000. Sodium 140, potassium 4.7, creatinine 1.3, BUN 19, glucose 188. TSH 1.093, total bilirubin 0.3, AST 29, ALT 39. Troponin 0.026, albumin 3.0. Urinalysis is unremarkable for infection. Chest x-ray showed mild congestive changes. IMPRESSION: 1. Venous stasis ulcer of right lower extremity associated with mild cellulitic changes. 2. Chronic edema lower extremities bilaterally. 3. Multiple antibiotic allergies listed; however, the patient says she is not allergic to anything and has tolerated antibiotics in the past including Augmentin, Zosyn and Rocephin without problem. 4. Degenerative joint disease of knees, status post steroid injection bilaterally, 11/04/2019. 5. Morbid obesity. 6. Chronic kidney disease. 7. Congestive heart failure. 8. Diabetes with neuropathy. PLAN: 1. Continue local wound care as directed. 2. Leg elevation and edema control. 3. We will treat with Zyvox. Labs have been ordered for the morning. 4. Supportive care. Thank you, Dr. Dumont, for asking us to participate in this patient's care. Should you have further questions or concerns, please call. The patient is seen and examined and plan of care implemented by Dr. Dorothea Saunders. DOROTHEA SAUNDERS MD DR: OLIVER/manju JOB#: [id number] / [id number] PAOLA
[2019-11-04] MEDS: AMITRIPTYLINE HCL 10 MG TABLET. PO SCH (22:56)
[2019-11-04 23:00] VITALS: BP 126/78
[2019-11-05] MEDS: MORPHINE SULFATE 2 MG/ML VIAL. IV PRN (00:21)
[2019-11-05 03:00] VITALS: BP 163/86
[2019-11-05] MEDS: oxyCODONE/APAP 7.5/325 1 TAB TABLET PO PRN ×3 (04:18→21:41)
[2019-11-05] MEDS: ALBUTEROL SULFATE 2.5 MG/3 ML NEBU. NEB PRN (06:42)
[2019-11-05 07:00] VITALS: BP 130/82
[2019-11-05] MEDS: PANTOPRAZOLE 40 MG TABLET.DR. PO SCH (07:14)
[2019-11-05] MEDS: PREGABALIN 75 MG CAPSULE PO SCH ×2 (08:37→21:29)
[2019-11-05] MEDS: DICLOFENAC SODIUM 25 MG TABLET.DR PO SCH ×2 (08:37→21:31)
[2019-11-05] MEDS: LABETALOL HCL 200 MG TABLET PO SCH ×2 (08:38→21:30)
[2019-11-05] MEDS: miSOPROStol 200 MCG TABLET PO SCH ×2 (08:38→21:31)
[2019-11-05] MEDS: LINEZOLID 600 MG TABLET PO SCH (08:39)
[2019-11-05] MEDS: GLIMEPIRIDE 2 MG TABLET. PO SCH ×2 (08:39→21:32)
[2019-11-05] MEDS: DICLOFENAC SODIUM 1% TOPICAL GEL 100GM TUBE. TP SCH ×4 (08:39→21:00)
[2019-11-05] MEDS: LACTOBACILLUS RHAMNOSUS GG 1 CAPSULE. PO SCH ×2 (08:39→21:32)
[2019-11-05] MEDS: PATCH REMOVAL. MC SCH (09:00)
[2019-11-05 11:00] VITALS: BP 147/83
--- NOTE | 2019-11-05 11:03 | PDOC ---
Infectious Disease Note Subjective Subjective c/o abdominal pain and vomited earlier, feeling better now. + BM Legs are sore Denies F/C/SOA ROS ROS as mentioned above Vital Sign Vital Signs Vital Signs Date Time Temp Pulse Resp B/P (MAP) Pulse Ox O2 Delivery O2 Flow Rate FiO2 11/05/19 09:05 96 Room Air 11/05/19 08:38 106 163/86 11/05/19 07:00 99.0 18 99.0 Physical Exam PHYSICAL EXAM GENERAL: Sitting in the chair, alert in NAD HEENT: Oropharynx pink and moist. No lesions/thrush seen. NECK: Supple. LUNGS: Clear to auscultation. HEART: S1, S2 regular. ABDOMEN: Obese, soft, nontender with bowel sounds present. EXTREMITIES: 2+ edema to lower extremities bilaterally. RLE dressing in place. Superficial ulcerations associated with warmth and mild redness on 11/03. SKIN: Warm to touch. No signs of rash. NEUROLOGIC: Alert and answering questions appropriately. Labs Lab Laboratory Tests Test 11/04/19 11:51 11/04/19 16:54 11/04/19 20:45 11/05/19 00:27 Glucose (Fingerstick) 115 mg/dL (70-99) 153 mg/dL (70-99) 200 mg/dL (70-99) 193 mg/dL (70-99) Test 11/05/19 05:53 11/05/19 07:51 Glucose (Fingerstick) 186 mg/dL (70-99) 165 mg/dL (70-99) Objective Assessment Venous stasis ulcer of right lower extremity asso warmth and mild redness. Chronic edema lower extremities Multiple abx allergies listed. However, patient says she is not allergic to anything. She has previously tolerated antibiotics in the past including Augmentin, Zosyn and Rocephin without problem. The list has been updated. D/w pharmacy. DJD of knees s/p steroid injection bilaterally, 11/03 Morbid obesity CKD CHF Diabetes with neuropathy Plan Plan of Care Local wound care as directed Leg elevation and edema control Continue Zyvox (11/03) Probiotics F/u today's labs Maintain aspiration precautions In a chair and better Leg some better but N/V with zyvox change to Doxy Attending Co-Sign Attending Co-Sign The patient was seen and interviewed as well as examined at the bedside. The chart was reviewed. The case was discussed. Agree with the plan of care. TJ NOVA APRN Nov 05, 2019 11:03 DOROTHEA BRAMBILA MD Nov 05, 2019 16:11
--- NOTE | 2019-11-05 11:24 | PDOC ---
PROGRESS NOTES Subjective Subjective She feels better with her knees but admits low back pain. Objective Objective Vital Signs Date Time Temp Pulse Resp B/P (MAP) Pulse Ox O2 Delivery O2 Flow Rate FiO2 11/05/19 09:05 96 Room Air 11/05/19 08:38 106 163/86 11/05/19 07:00 99.0 18 99.0 Intake and Output 11/05/19 07:00 Intake Total 825 ml Output Total 7000 ml Balance -6175 ml Intake Oral 825 ml Output Urine Total 7000 ml Physical Exam Physical Exam She is sitting up in bedside chair and nursing reports of her not being happy to get up. She had dressing to her right leg wound. She continues with lower extremity edema and painfully limited lumbar spine ROM. Assessment Assessment Problems Medical Problems: (1) Leg pain, bilateral Status: Acute (2) Peripheral edema Status: Acute Plan Plan of Care To consider injecting her low back if needed. Comment Review of Relevant I have reviewed the following items jorge luis (where applicable) has been applied. Labs Laboratory Tests Test 11/03/19 11:32 11/03/19 16:48 11/03/19 19:51 11/04/19 07:44 Glucose (Fingerstick) 120 mg/dL (70-99) 109 mg/dL (70-99) 134 mg/dL (70-99) 144 mg/dL (70-99) Test 11/04/19 11:51 11/04/19 16:54 11/04/19 20:45 11/05/19 00:27 Glucose (Fingerstick) 115 mg/dL (70-99) 153 mg/dL (70-99) 200 mg/dL (70-99) 193 mg/dL (70-99) Test 11/05/19 05:53 11/05/19 07:51 Glucose (Fingerstick) 186 mg/dL (70-99) 165 mg/dL (70-99) Laboratory Tests Test 11/04/19 11:51 11/04/19 16:54 11/04/19 20:45 11/05/19 00:27 Glucose (Fingerstick) 115 mg/dL (70-99) 153 mg/dL (70-99) 200 mg/dL (70-99) 193 mg/dL (70-99) Test 11/05/19 05:53 11/05/19 07:51 Glucose (Fingerstick) 186 mg/dL (70-99) 165 mg/dL (70-99) Medications Current Medications Fentanyl Citrate (Fentanyl 2ml Vial) 50 mcg 1X ONCE IVP Last administered on 11/02/19at 12:00; Start 11/02/19 at 11:45; Stop 11/02/19 at 11:46; Status DC Sodium Chloride 500 ml @ 500 mls/hr 1X ONCE IV Last administered on 11/02/19at 13:14; Start 11/02/19 at 13:15; Stop 11/02/19 at 14:14; Status DC Acetaminophen/ Hydrocodone Bitart (Lortab 5/325) 1 tab 1X ONCE PO Last administered on 11/02/19at 15:16; Start 11/02/19 at 15:15; Stop 11/02/19 at 15:16; Status DC Amitriptyline HCl (Elavil) 60 mg HS PO Last administered on 11/04/19at 22:56; Start 11/02/19 at 21:00 Clonidine HCl (Catapres Tts-3) 1 patch WEEKLY TD ; Start 11/03/19 at 09:00 Diclofenac Sodium (Voltaren) 1 becca QID TP Last administered on 11/05/19 08:39; Start 11/02/19 at 18:00 Labetalol HCl (Trandate) 200 mg BID PO Last administered on 11/05/19 08:38; Start 11/02/19 at 21:00 Lactobacillus Rhamnosus (Culturelle) 1 cap BID PO Last administered on 11/05/19 08:39; Start 11/02/19 at 21:00 Lidocaine (Lidoderm) 1 patch HS TD Last administered on 11/04/19 20:41; Start 11/02/19 at 21:00 Pantoprazole Sodium (Protonix) 40 mg DAILYAC PO Last administered on 11/05/19 07:14; Start 11/03/19 at 07:30 Non-Formulary Medication (Albuterol Sulfate (Proair Respiclick)) 2 puff PRN Q4- 6HRS PRN IH shortness of breath; Start 11/02/19 at 17:00; Status UNV Misoprostol (Cytotec 200mcg Tab) 200 mcg BID PO Last administered on 11/05/19 08:38; Start 11/02/19 at 21:00 Glimepiride (Amaryl) 4 mg BID PO Last administered on 11/05/19 08:39; Start 11/02/19 at 21:00 Atorvastatin Calcium (Lipitor) 10 mg QHS PO Last administered on 11/04/19 20:37; Start 11/02/19 at 21:00 Pregabalin (Lyrica) 150 mg BID PO Last administered on 11/05/19 08:37; Start 11/02/19 at 21:00 Prochlorperazine Maleate (Compazine) 10 mg PRN Q8HRS PRN PO NAUSEA/VOMITING Last administered on 11/05/19 04:22; Start 11/02/19 at 17:15 Miscellaneous (Lidoderm Patch Removal) 1 ea DAILY MC Last administered on 11/05/19 09:00; Start 11/03/19 at 09:00 Diclofenac Sodium (Voltaren) 75 mg BID PO Last administered on 11/05/19 08:37; Start 11/02/19 at 21:00 Albuterol Sulfate (Ventolin Neb Soln) 2.5 mg PRN Q4HRS PRN NEB SHORTNESS OF BR EATH Last administered on 11/05/19 06:42; Start 11/02/19 at 17:15 Oxycodone/ Acetaminophen (Percocet 7.5/ 325) 1 tab PRN Q4HRS PRN PO PAIN MILD TO MOD; Start 11/02/19 at 17:45 Oxycodone/ Acetaminophen (Percocet 7.5/ 325) 2 tab PRN Q4HRS PRN PO PAIN SEVERE Last administered on 11/05/19 04:18; Start 11/02/19 at 17:45 Morphine Sulfate (Morphine Sulfate) 2 mg PRN Q2HR PRN IV PAIN Last administered on 11/05/19 00:21; Start 11/02/19 at 21:30 Methylprednisolone Acetate (DEPO-Medrol 40MG VIAL) 40 mg 1X ONCE IM Last administered on 11/04/19 13:45; Start 11/04/19 at 13:30; Stop 11/04/19 at 13:31; Status DC Methylprednisolone Acetate (DEPO-Medrol 40MG VIAL) 40 mg 1X ONCE IM Last administered on 7/2/20at 13:45; Start 11/04/19 at 13:30; Stop 11/04/19 at 13:31; Status DC Bupivacaine HCl (Sensorcaine-Mpf 0.25%) 10 ml 1X ONCE IJ Last administered on 11/04/19at 13:45; Start 11/04/19 at 13:30; Stop 11/04/19 at 13:31; Status DC Multi-Ingredient Ointment (Hydrocerin Cream) 1 becca PRN Q1HR PRN TP DRY SKIN / SCALING; Start 11/04/19 at 13:30 Linezolid (Zyvox) 600 mg BID PO Last administered on 11/05/19at 08:39; Start 11/04/19 at 21:00 Active Scripts Active Lidocaine PATCH (Lidocaine) 1 Each Adh..patch 1 Patch TD HS 30 Days Culturelle (Lactobacillus Rhamnosus Gg) 1 Each Cap.sprink 1 Cap PO BID 30 Days Pantoprazole Sodium (Pantoprazole Sodium) 40 Mg Tablet.dr 40 Mg PO DAILYAC 30 Days Polyethylene Glycol 3350 17 Gm Powd.pack 17 Gm PO PRN BID PRN 30 Days Amlodipine Besylate 10 Mg Tablet 10 Mg PO DAILY 30 Days Hydralazine Hcl 25 Mg Tablet 25 Mg PO BID 30 Days Clonidine Tts-3 (Clonidine) 1 Each Patch.tdwk 1 Patch TD WEEKLY 30 Days Amox Tr-K Clv 875-125 Mg Tab (Amoxicillin/Potassium Clav) 1 Each Tablet 1 Tab PO BID 10 Days Aspirin 81 Mg Tab.chew 81 Mg PO DAILYWBKFT 30 Days Reported Percocet 7.5-325 Mg Tablet (Oxycodone/Acetaminophen) 1 Each Tablet 2 Tab PO PRN Q4HRS PRN Percocet 7.5-325 Mg Tablet (Oxycodone/Acetaminophen) 1 Each Tablet 1 Tab PO PRN Q4HRS PRN Voltaren (Diclofenac Sodium) 100 Gm Gel..gram. 1 Gm TP QID 30 Days apply to affected area(s) Triamcinolone Acetonide 0.1% Cream (Triamcinolone Acetonide) 15 Gm Cream..g. 1 Becca TP TID Tramadol Hcl 100 Mg Tbmp.24hr 1 Tab PO PRN Q6HRS PRN MDD 1 Tablet(s) 30 Days Proair Respiclick (Albuterol Sulfate) 90 Mcg Aer.pow.ba 2 Puff IH PRN Q4-6HRS PRN Lyrica (Pregabalin) 150 Mg Capsule 1 Cap PO BID Emu-Lac Hydrating Cream (Ammonium Lactate/Emu Oil) 120 Ml Cream.ml. 120 Ml TP DAILY Arthrotec 75 Mg-200 Mcg Tab (Diclofenac Sodium/Misoprostol) 1 Each Tab.ir.dr 1 Tab PO BID Amitriptyline Hcl 10 Mg Tablet 60 Mg PO HS Glimepiride 4 Mg Tablet 1 Tab PO BID Compazine (Prochlorperazine Maleate) 10 Mg Tablet 10 Mg PO PRN Q8HRS PRN Pravastatin Sodium 40 Mg Tablet 1 Tab PO QHS Labetalol Hcl 200 Mg Tablet 1 Tab PO BID Vitals/I & O Vital Sign - Last 24 Hours 11/04/19 11/04/19 11/04/19 11/04/19 12:07 12:07 12:47 14:05 Pulse Ox 94 O2 Delivery Room Air Room Air Room Air Room Air 11/04/19 11/04/19 11/04/19 11/04/19 15:47 18:45 19:00 19:15 Temp 98.3 99.6 98.3 99.6 Pulse 80 95 Resp 20 20 20 B/P (MAP) 131/66 (87) 154/82 (106) Pulse Ox 96 100 O2 Delivery Room Air Room Air Room Air 11/04/19 11/04/19 11/04/19 11/04/19 20:00 20:36 20:38 23:00 Temp 98.2 98.2 Pulse 95 98 Resp 20 19 B/P (MAP) 154/82 126/78 (94) Pulse Ox 100 96 O2 Delivery Room Air Room Air Room Air 11/05/19 11/05/19 11/05/19 11/05/19 00:21 00:51 03:00 04:18 Temp 98.6 98.6 Pulse 106 Resp 20 20 20 20 B/P (MAP) 163/86 (111) Pulse Ox 96 96 98 98 O2 Delivery Room Air Room Air Room Air Room Air 11/05/19 11/05/19 11/05/19 11/05/19 05:18 06:41 07:00 08:38 Temp 99.0 99.0 Pulse 108 106 Resp 20 18 B/P (MAP) 130/82 (98) 163/86 Pulse Ox 98 95 O2 Delivery Room Air Room Air Room Air 11/05/19 09:05 Pulse Ox 96 O2 Delivery Room Air Intake and Output 11/04/19 11/04/19 11/05/19 15:00 23:00 07:00 Intake Total 375 ml 400 ml 50 ml Output Total 1850 ml 2500 ml 2650 ml Balance -1475 ml -2100 ml -2600 ml Justicifation of Admission Dx: Justifications for Admission: Justification of Admission Dx: N/A DOC PEDRO MD Nov 05, 2019 11:24
[2019-11-05 15:00] VITALS: BP 134/80
--- NOTE | 2019-11-05 16:02 | PDOC ---
PROGRESS NOTES Chief Complaint Chief Complaint Edema with venous insufficiency and obesity History of heart failure CHF, asthma, arthritis, depression, diabetes, GERD, coronary artery disease, hypertension, TIAs, neuropathy, cholecystectomy, tonsillectomy, hysterectomy, previous tobacco abuse. History of Present Illness History of Present Illness 11/04, she had refused SNU yesterday, now wants to go complaints of constipation, and was upset that when she said that, the RN might insert a finger into her rectum, poor mental status may be baseline try to get to skilled 11/03, I called for a Rheum consult for RA, poor control, on modulator, no prednisone, Dr. Navarro is out of town will consult physiatry, cont PO pain meds PT and OT as able weakness is debilitating, pain is limiting and contributes 11/03/2019 Patient seen and examined She is resting with no apparent distress Chart reviewed Discussed with RN Vitals Vitals Vital Signs Date Time Temp Pulse Resp B/P (MAP) Pulse Ox O2 Delivery O2 Flow Rate FiO2 11/05/19 15:31 Room Air 11/05/19 15:00 98.8 112 20 134/80 (98) 96 98.8 Physical Exam Physical Exam GENERAL: Sitting in the chair, alert in NAD HEENT: Oropharynx pink and moist. No lesions/thrush seen. NECK: Supple. LUNGS: Clear to auscultation. HEART: S1, S2 regular. ABDOMEN: Obese, soft, nontender with bowel sounds present. EXTREMITIES: 2+ edema to lower extremities bilaterally. RLE dressing in place. Superficial ulcerations associated with warmth and mild redness on 11/03. SKIN: Warm to touch. No signs of rash. NEUROLOGIC: Alert and answering questions appropriately. General: Alert, Oriented X3, Cooperative, No acute distress Heart: Regular rate, Normal S1, Normal S2, Other (2/6 systolic murmur to LLS border) Lungs: Clear Abdomen: Normal bowel sounds Extremities: No cyanosis, Other (mild erythema to RLE, 2+ bilateral LE pitting edema with 2+ pedal pulses to both feet) Skin: No breakdown, No significant lesion Labs LABS Laboratory Tests Test 11/04/19 16:54 11/04/19 20:45 11/05/19 00:27 11/05/19 05:53 Glucose (Fingerstick) 153 mg/dL (70-99) 200 mg/dL (70-99) 193 mg/dL (70-99) 186 mg/dL (70-99) Test 11/05/19 07:51 11/05/19 11:40 Glucose (Fingerstick) 165 mg/dL (70-99) 246 mg/dL (70-99) Assessment and Plan Assessmemt and Plan Problems Medical Problems: (1) Leg pain, bilateral Status: Acute (2) Peripheral edema Status: Acute Comment Review of Relevant I have reviewed the following items jorge luis (where applicable) has been applied. Labs Laboratory Tests Test 11/03/19 16:48 11/03/19 19:51 11/04/19 07:44 11/04/19 11:51 Glucose (Fingerstick) 109 mg/dL (70-99) 134 mg/dL (70-99) 144 mg/dL (70-99) 115 mg/dL (70-99) Test 11/04/19 16:54 11/04/19 20:45 11/05/19 00:27 11/05/19 05:53 Glucose (Fingerstick) 153 mg/dL (70-99) 200 mg/dL (70-99) 193 mg/dL (70-99) 186 mg/dL (70-99) Test 11/05/19 07:51 11/05/19 11:40 Glucose (Fingerstick) 165 mg/dL (70-99) 246 mg/dL (70-99) Laboratory Tests Test 11/04/19 16:54 11/04/19 20:45 11/05/19 00:27 11/05/19 05:53 Glucose (Fingerstick) 153 mg/dL (70-99) 200 mg/dL (70-99) 193 mg/dL (70-99) 186 mg/dL (70-99) Test 11/05/19 07:51 11/05/19 11:40 Glucose (Fingerstick) 165 mg/dL (70-99) 246 mg/dL (70-99) Medications Current Medications Fentanyl Citrate (Fentanyl 2ml Vial) 50 mcg 1X ONCE IVP Last administered on 11/02/19at 12:00; Start 11/02/19 at 11:45; Stop 11/02/19 at 11:46; Status DC Sodium Chloride 500 ml @ 500 mls/hr 1X ONCE IV Last administered on 11/02/19at 13:14; Start 11/02/19 at 13:15; Stop 11/02/19 at 14:14; Status DC Acetaminophen/ Hydrocodone Bitart (Lortab 5/325) 1 tab 1X ONCE PO Last administered on 11/02/19at 15:16; Start 11/02/19 at 15:15; Stop 11/02/19 at 15:16; Status DC Amitriptyline HCl (Elavil) 60 mg HS PO Last administered on 11/04/19at 22:56; Start 11/02/19 at 21:00 Clonidine HCl (Catapres Tts-3) 1 patch WEEKLY TD ; Start 11/03/19 at 09:00 Diclofenac Sodium (Voltaren) 1 becca QID TP Last administered on 11/05/19 08:39; Start 11/02/19 at 18:00 Labetalol HCl (Trandate) 200 mg BID PO Last administered on 11/05/19 08:38; Start 11/02/19 at 21:00 Lactobacillus Rhamnosus (Culturelle) 1 cap BID PO Last administered on 11/05/19 08:39; Start 11/02/19 at 21:00 Lidocaine (Lidoderm) 1 patch HS TD Last administered on 11/04/19 20:41; Start 11/02/19 at 21:00 Pantoprazole Sodium (Protonix) 40 mg DAILYAC PO Last administered on 11/05/19at 07:14; Start 11/03/19 at 07:30 Non-Formulary Medication (Albuterol Sulfate (Proair Respiclick)) 2 puff PRN Q4- 6HRS PRN IH shortness of breath; Start 11/02/19 at 17:00; Status UNV Misoprostol (Cytotec 200mcg Tab) 200 mcg BID PO Last administered on 11/05/19 08:38; Start 11/02/19 at 21:00 Glimepiride (Amaryl) 4 mg BID PO Last administered on 11/05/19 08:39; Start 11/02/19 at 21:00 Atorvastatin Calcium (Lipitor) 10 mg QHS PO Last administered on 11/04/19 20:37; Start 11/02/19 at 21:00 Pregabalin (Lyrica) 150 mg BID PO Last administered on 7/3/20at 08:37; Start 11/02/19 at 21:00 Prochlorperazine Maleate (Compazine) 10 mg PRN Q8HRS PRN PO NAUSEA/VOMITING Last administered on 11/05/19 04:22; Start 11/02/19 at 17:15 Miscellaneous (Lidoderm Patch Removal) 1 ea DAILY MC Last administered on 11/05/19 09:00; Start 11/03/19 at 09:00 Diclofenac Sodium (Voltaren) 75 mg BID PO Last administered on 11/05/19 08:37; Start 11/02/19 at 21:00 Albuterol Sulfate (Ventolin Neb Soln) 2.5 mg PRN Q4HRS PRN NEB SHORTNESS OF B REATH Last administered on 11/05/19 06:42; Start 11/02/19 at 17:15 Oxycodone/ Acetaminophen (Percocet 7.5/ 325) 1 tab PRN Q4HRS PRN PO PAIN MILD TO MOD; Start 11/02/19 at 17:45 Oxycodone/ Acetaminophen (Percocet 7.5/ 325) 2 tab PRN Q4HRS PRN PO PAIN SEVERE Last administered on 11/05/19 14:31; Start 11/02/19 at 17:45 Morphine Sulfate (Morphine Sulfate) 2 mg PRN Q2HR PRN IV PAIN Last administered on 11/05/19at 00:21; Start 11/02/19 at 21:30 Methylprednisolone Acetate (DEPO-Medrol 40MG VIAL) 40 mg 1X ONCE IM Last administered on 11/04/19 13:45; Start 11/04/19 at 13:30; Stop 11/04/19 at 13:31; Status DC Methylprednisolone Acetate (DEPO-Medrol 40MG VIAL) 40 mg 1X ONCE IM Last administered on 11/04/19 13:45; Start 11/04/19 at 13:30; Stop 11/04/19 at 13:31; Status DC Bupivacaine HCl (Sensorcaine-Mpf 0.25%) 10 ml 1X ONCE IJ Last administered on 11/04/19 13:45; Start 11/04/19 at 13:30; Stop 11/04/19 at 13:31; Status DC Multi-Ingredient Ointment (Hydrocerin Cream) 1 becca PRN Q1HR PRN TP DRY SKIN / SCALING; Start 11/04/19 at 13:30 Linezolid (Zyvox) 600 mg BID PO Last administered on 11/05/19at 08:39; Start 11/04/19 at 21:00 Active Scripts Active Lidocaine PATCH (Lidocaine) 1 Each Adh..patch 1 Patch TD HS 30 Days Culturelle (Lactobacillus Rhamnosus Gg) 1 Each Cap.sprink 1 Cap PO BID 30 Days Pantoprazole Sodium (Pantoprazole Sodium) 40 Mg Tablet.dr 40 Mg PO DAILYAC 30 Days Polyethylene Glycol 3350 17 Gm Powd.pack 17 Gm PO PRN BID PRN 30 Days Amlodipine Besylate 10 Mg Tablet 10 Mg PO DAILY 30 Days Hydralazine Hcl 25 Mg Tablet 25 Mg PO BID 30 Days Clonidine Tts-3 (Clonidine) 1 Each Patch.tdwk 1 Patch TD WEEKLY 30 Days Amox Tr-K Clv 875-125 Mg Tab (Amoxicillin/Potassium Clav) 1 Each Tablet 1 Tab PO BID 10 Days Aspirin 81 Mg Tab.chew 81 Mg PO DAILYWBKFT 30 Days Reported Percocet 7.5-325 Mg Tablet (Oxycodone/Acetaminophen) 1 Each Tablet 2 Tab PO PRN Q4HRS PRN Percocet 7.5-325 Mg Tablet (Oxycodone/Acetaminophen) 1 Each Tablet 1 Tab PO PRN Q4HRS PRN Voltaren (Diclofenac Sodium) 100 Gm Gel..gram. 1 Gm TP QID 30 Days apply to affected area(s) Triamcinolone Acetonide 0.1% Cream (Triamcinolone Acetonide) 15 Gm Cream..g. 1 Becca TP TID Tramadol Hcl 100 Mg Tbmp.24hr 1 Tab PO PRN Q6HRS PRN MDD 1 Tablet(s) 30 Days Proair Respiclick (Albuterol Sulfate) 90 Mcg Aer.pow.ba 2 Puff IH PRN Q4-6HRS PRN Lyrica (Pregabalin) 150 Mg Capsule 1 Cap PO BID Emu-Lac Hydrating Cream (Ammonium Lactate/Emu Oil) 120 Ml Cream.ml. 120 Ml TP DAILY Arthrotec 75 Mg-200 Mcg Tab (Diclofenac Sodium/Misoprostol) 1 Each Tab.ir.dr 1 Tab PO BID Amitriptyline Hcl 10 Mg Tablet 60 Mg PO HS Glimepiride 4 Mg Tablet 1 Tab PO BID Compazine (Prochlorperazine Maleate) 10 Mg Tablet 10 Mg PO PRN Q8HRS PRN Pravastatin Sodium 40 Mg Tablet 1 Tab PO QHS Labetalol Hcl 200 Mg Tablet 1 Tab PO BID Vitals/I & O Vital Sign - Last 24 Hours 11/04/19 11/04/19 11/04/19 11/04/19 18:45 19:00 19:15 20:00 Temp 99.6 99.6 Pulse 95 Resp 20 20 B/P (MAP) 154/82 (106) Pulse Ox 100 O2 Delivery Room Air Room Air Room Air 11/04/19 11/04/19 11/04/19 11/05/19 20:36 20:38 23:00 00:21 Temp 98.2 98.2 Pulse 95 98 Resp 20 20 B/P (MAP) 154/82 126/78 (94) Pulse Ox 100 96 96 O2 Delivery Room Air Room Air Room Air 11/05/19 11/05/19 11/05/19 11/05/19 00:51 03:00 04:18 05:18 Temp 98.6 98.6 Pulse 106 Resp 20 20 B/P (MAP) 163/86 (111) Pulse Ox 96 98 98 98 O2 Delivery Room Air Room Air Room Air Room Air 11/05/19 11/05/19 11/05/19 11/05/19 06:41 07:00 08:00 08:38 Temp 99.0 99.0 Pulse 108 106 Resp 18 B/P (MAP) 130/82 (98) 163/86 Pulse Ox 95 O2 Delivery Room Air Room Air Room Air 11/05/19 11/05/19 11/05/19 11/05/19 09:05 11:00 14:31 15:00 Temp 99.2 98.8 99.2 98.8 Pulse 106 112 Resp 18 20 B/P (MAP) 147/83 (104) 134/80 (98) Pulse Ox 96 97 96 O2 Delivery Room Air Room Air Room Air Room Air 11/05/19 15:31 O2 Delivery Room Air Intake and Output 11/04/19 11/04/19 11/05/19 15:00 23:00 07:00 Intake Total 375 ml 400 ml 50 ml Output Total 1850 ml 2500 ml 2650 ml Balance -1475 ml -2100 ml -2600 ml Justicifation of Admission Dx: Justifications for Admission: Justification of Admission Dx: N/A DENISE LENNON MD Nov 05, 2019 16:02
[2019-11-05 19:00] VITALS: BP 155/92
[2019-11-05] MEDS: LIDOCAINE (700MG/PATCH) PATCH. TD SCH (21:00)
[2019-11-05] MEDS: AMITRIPTYLINE HCL 10 MG TABLET. PO SCH (21:30)
[2019-11-05] MEDS: ATORVASTATIN CALCIUM 10 MG TABLET. PO SCH (21:31)
[2019-11-05] MEDS: DOXYCYCLINE HYCLATE 100 MG TABLET PO SCH (21:31)
[2019-11-05 23:00] VITALS: BP 154/89
--- NOTE | 2019-11-05 23:50 | NUR ---
Aide walked into patients room and found patient sitting on the floor next to the bed. No apparent injuries noted and patient denies hitting her head, patient only has complaints of pain in both legs. Patients vitals are stable BP 141/80 HR 98. Jorge lift was used to pick the patient up from the floor and put back in bed. Patient stated that she was reaching for the commode at the time and she slid down and landed on her bottom. Patient was reminded that she has a purewick in place and to call for help, bed alarm is engaged. Nursing checkout supervisor and MD notified.
[2019-11-06] VITALS (7 sets, daily range): BP systolic 134–155; BP diastolic 72–103
[2019-11-06] MEDS: PANTOPRAZOLE 40 MG TABLET.DR. PO SCH (06:08)
[2019-11-06] MEDS: PATCH REMOVAL. MC SCH (09:00)
[2019-11-06] MEDS: DICLOFENAC SODIUM 1% TOPICAL GEL 100GM TUBE. TP SCH ×4 (09:00→20:45)
[2019-11-06] MEDS: DOXYCYCLINE HYCLATE 100 MG TABLET PO SCH ×2 (10:03→20:44)
[2019-11-06] MEDS: LACTOBACILLUS RHAMNOSUS GG 1 CAPSULE. PO SCH ×2 (10:03→20:44)
[2019-11-06] MEDS: DICLOFENAC SODIUM 25 MG TABLET.DR PO SCH ×2 (10:03→20:43)
[2019-11-06] MEDS: LABETALOL HCL 200 MG TABLET PO SCH ×2 (10:03→20:44)
[2019-11-06] MEDS: miSOPROStol 200 MCG TABLET PO SCH ×2 (10:03→20:45)
[2019-11-06] MEDS: PREGABALIN 75 MG CAPSULE PO SCH ×2 (10:04→20:45)
[2019-11-06] MEDS: GLIMEPIRIDE 2 MG TABLET. PO SCH ×2 (10:04→20:44)
--- NOTE | 2019-11-06 10:34 | PDOC ---
PROGRESS NOTES Chief Complaint Chief Complaint Edema with venous insufficiency and obesity History of heart failure CHF, asthma, arthritis, depression, diabetes, GERD, coronary artery disease, hypertension, TIAs, neuropathy, cholecystectomy, tonsillectomy, hysterectomy, previous tobacco abuse. History of Present Illness History of Present Illness 11/05,. covid test today for SNU DC had a minor fall, non-injury, no new pain, old pain and weakness, no safe to go home 11/04, she had refused SNU yesterday, now wants to go complaints of constipation, and was upset that when she said that, the RN might insert a finger into her rectum, poor mental status may be baseline try to get to skilled 11/03, I called for a Rheum consult for RA, poor control, on modulator, no prednisone, Dr. Navarro is out of town will consult physiatry, cont PO pain meds PT and OT as able weakness is debilitating, pain is limiting and contributes 11/03/2019 Patient seen and examined She is resting with no apparent distress Chart reviewed Discussed with RN Vitals Vitals Vital Signs Date Time Temp Pulse Resp B/P (MAP) Pulse Ox O2 Delivery O2 Flow Rate FiO2 11/06/19 10:03 94 155/83 11/06/19 07:00 98.2 18 96 Room Air 98.2 Physical Exam Physical Exam GENERAL: Sitting in the chair, alert in NAD HEENT: Oropharynx pink and moist. No lesions/thrush seen. NECK: Supple. LUNGS: Clear to auscultation. HEART: S1, S2 regular. ABDOMEN: Obese, soft, nontender with bowel sounds present. EXTREMITIES: 2+ edema to lower extremities bilaterally. RLE dressing in place. Superficial ulcerations associated with warmth and mild redness on 11/03. SKIN: Warm to touch. No signs of rash. NEUROLOGIC: Alert and answering questions appropriately. General: Alert, Oriented X3, Cooperative, No acute distress Heart: Regular rate, Normal S1, Normal S2, Other (2/6 systolic murmur to LLS border) Lungs: Clear Abdomen: Normal bowel sounds Extremities: No cyanosis, Other (mild erythema to RLE, 2+ bilateral LE pitting edema with 2+ pedal pulses to both feet) Skin: No breakdown, No significant lesion Labs LABS Laboratory Tests Test 11/05/19 11:40 11/05/19 16:51 11/05/19 20:47 11/06/19 08:13 Glucose (Fingerstick) 246 mg/dL (70-99) 166 mg/dL (70-99) 215 mg/dL (70-99) 140 mg/dL (70-99) Assessment and Plan Assessmemt and Plan Problems Medical Problems: (1) Leg pain, bilateral Status: Acute (2) Peripheral edema Status: Acute Comment Review of Relevant I have reviewed the following items jorge luis (where applicable) has been applied. Labs Laboratory Tests Test 11/04/19 11:51 11/04/19 16:54 11/04/19 20:45 11/05/19 00:27 Glucose (Fingerstick) 115 mg/dL (70-99) 153 mg/dL (70-99) 200 mg/dL (70-99) 193 mg/dL (70-99) Test 11/05/19 05:53 11/05/19 07:51 11/05/19 11:40 11/05/19 16:51 Glucose (Fingerstick) 186 mg/dL (70-99) 165 mg/dL (70-99) 246 mg/dL (70-99) 166 mg/dL (70-99) Test 11/05/19 20:47 11/06/19 08:13 Glucose (Fingerstick) 215 mg/dL (70-99) 140 mg/dL (70-99) Laboratory Tests Test 11/05/19 11:40 11/05/19 16:51 11/05/19 20:47 11/06/19 08:13 Glucose (Fingerstick) 246 mg/dL (70-99) 166 mg/dL (70-99) 215 mg/dL (70-99) 140 mg/dL (70-99) Medications Current Medications Fentanyl Citrate (Fentanyl 2ml Vial) 50 mcg 1X ONCE IVP Last administered on 11/02/19at 12:00; Start 11/02/19 at 11:45; Stop 11/02/19 at 11:46; Status DC Sodium Chloride 500 ml @ 500 mls/hr 1X ONCE IV Last administered on 11/02/19at 13:14; Start 11/02/19 at 13:15; Stop 11/02/19 at 14:14; Status DC Acetaminophen/ Hydrocodone Bitart (Lortab 5/325) 1 tab 1X ONCE PO Last administered on 11/02/19 15:16; Start 11/02/19 at 15:15; Stop 11/02/19 at 15 :16; Status DC Amitriptyline HCl (Elavil) 60 mg HS PO Last administered on 11/05/19 21:30; Start 11/02/19 at 21:00 Clonidine HCl (Catapres Tts-3) 1 patch WEEKLY TD ; Start 11/03/19 at 09:00 Diclofenac Sodium (Voltaren) 1 becca QID TP Last administered on 11/05/19 08:39; Start 11/02/19 at 18:00 Labetalol HCl (Trandate) 200 mg BID PO Last administered on 11/06/19 10:03; Start 11/02/19 at 21:00 Lactobacillus Rhamnosus (Culturelle) 1 cap BID PO Last administered on 11/06/19 10:03; Start 11/02/19 at 21:00 Lidocaine (Lidoderm) 1 patch HS TD Last administered on 11/04/19 20:41; Start 11/02/19 at 21:00 Pantoprazole Sodium (Protonix) 40 mg DAILYAC PO Last administered on 11/06/19 06:08; Start 11/03/19 at 07:30 Non-Formulary Medication (Albuterol Sulfate (Proair Respiclick)) 2 puff PRN Q4- 6HRS PRN IH shortness of breath; Start 11/02/19 at 17:00; Status UNV Misoprostol (Cytotec 200mcg Tab) 200 mcg BID PO Last administered on 11/06/19 10:03; Start 11/02/19 at 21:00 Glimepiride (Amaryl) 4 mg BID PO Last administered on 11/06/19 10:04; Start 11/02/19 at 21:00 Atorvastatin Calcium (Lipitor) 10 mg QHS PO Last administered on 11/05/19 21:31; Start 11/02/19 at 21:00 Pregabalin (Lyrica) 150 mg BID PO Last administered on 11/06/19 10:04; Start 11/02/19 at 21:00 Prochlorperazine Maleate (Compazine) 10 mg PRN Q8HRS PRN PO NAUSEA/VOMITING Last administered on 7/3/20at 04:22; Start 11/02/19 at 17:15 Miscellaneous (Lidoderm Patch Removal) 1 ea DAILY MC Last administered on 11/06/19 09:00; Start 11/03/19 at 09:00 Diclofenac Sodium (Voltaren) 75 mg BID PO Last administered on 11/06/19 10:03; Start 11/02/19 at 21:00 Albuterol Sulfate (Ventolin Neb Soln) 2.5 mg PRN Q4HRS PRN NEB SHORTNESS OF BREATH Last administered on 11/05/19 06:42; Start 11/02/19 at 17:15 Oxycodone/ Acetaminophen (Percocet 7.5/ 325) 1 tab PRN Q4HRS PRN PO PAIN MILD TO MOD; Start 11/02/19 at 17:45 Oxycodone/ Acetaminophen (Percocet 7.5/ 325) 2 tab PRN Q4HRS PRN PO PAIN SEVERE Last administered on 11/05/19 21:41; Start 11/02/19 at 17:45 Morphine Sulfate (Morphine Sulfate) 2 mg PRN Q2HR PRN IV PAIN Last administered on 11/05/19 00:21; Start 11/02/19 at 21:30 Methylprednisolone Acetate (DEPO-Medrol 40MG VIAL) 40 mg 1X ONCE IM Last administered on 11/04/19 13:45; Start 11/04/19 at 13:30; Stop 11/04/19 at 13:31; Status DC Methylprednisolone Acetate (DEPO-Medrol 40MG VIAL) 40 mg 1X ONCE IM Last administered on 11/04/19 13:45; Start 11/04/19 at 13:30; Stop 11/04/19 at 13:31; Status DC Bupivacaine HCl (Sensorcaine-Mpf 0.25%) 10 ml 1X ONCE IJ Last administered on 11/04/19 13:45; Start 11/04/19 at 13:30; Stop 11/04/19 at 13:31; Status DC Multi-Ingredient Ointment (Hydrocerin Cream) 1 becca PRN Q1HR PRN TP DRY SKIN / SCALING; Start 11/04/19 at 13:30 Linezolid (Zyvox) 600 mg BID PO Last administered on 11/05/19 08:39; Start 11/04/19 at 21:00; Stop 11/05/19 at 16:10; Status DC Doxycycline Hyclate (Vibra-Tab) 100 mg BID PO Last administered on 11/06/19at 10:03; Start 11/05/19 at 21:00 Active Scripts Active Lidocaine PATCH (Lidocaine) 1 Each Adh..patch 1 Patch TD HS 30 Days Culturelle (Lactobacillus Rhamnosus Gg) 1 Each Cap.sprink 1 Cap PO BID 30 Days Pantoprazole Sodium (Pantoprazole Sodium) 40 Mg Tablet.dr 40 Mg PO DAILYAC 30 Days Polyethylene Glycol 3350 17 Gm Powd.pack 17 Gm PO PRN BID PRN 30 Days Amlodipine Besylate 10 Mg Tablet 10 Mg PO DAILY 30 Days Hydralazine Hcl 25 Mg Tablet 25 Mg PO BID 30 Days Clonidine Tts-3 (Clonidine) 1 Each Patch.tdwk 1 Patch TD WEEKLY 30 Days Amox Tr-K Clv 875-125 Mg Tab (Amoxicillin/Potassium Clav) 1 Each Tablet 1 Tab PO BID 10 Days Aspirin 81 Mg Tab.chew 81 Mg PO DAILYWBKFT 30 Days Reported Percocet 7.5-325 Mg Tablet (Oxycodone/Acetaminophen) 1 Each Tablet 2 Tab PO PRN Q4HRS PRN Percocet 7.5-325 Mg Tablet (Oxycodone/Acetaminophen) 1 Each Tablet 1 Tab PO PRN Q4HRS PRN Voltaren (Diclofenac Sodium) 100 Gm Gel..gram. 1 Gm TP QID 30 Days apply to affected area(s) Triamcinolone Acetonide 0.1% Cream (Triamcinolone Acetonide) 15 Gm Cream..g. 1 Becca TP TID Tramadol Hcl 100 Mg Tbmp.24hr 1 Tab PO PRN Q6HRS PRN MDD 1 Tablet(s) 30 Days Proair Respiclick (Albuterol Sulfate) 90 Mcg Aer.pow.ba 2 Puff IH PRN Q4-6HRS PRN Lyrica (Pregabalin) 150 Mg Capsule 1 Cap PO BID Emu-Lac Hydrating Cream (Ammonium Lactate/Emu Oil) 120 Ml Cream.ml. 120 Ml TP DAILY Arthrotec 75 Mg-200 Mcg Tab (Diclofenac Sodium/Misoprostol) 1 Each Tab.ir.dr 1 Tab PO BID Amitriptyline Hcl 10 Mg Tablet 60 Mg PO HS Glimepiride 4 Mg Tablet 1 Tab PO BID Compazine (Prochlorperazine Maleate) 10 Mg Tablet 10 Mg PO PRN Q8HRS PRN Pravastatin Sodium 40 Mg Tablet 1 Tab PO QHS Labetalol Hcl 200 Mg Tablet 1 Tab PO BID Vitals/I & O Vital Sign - Last 24 Hours 11/05/19 11/05/19 11/05/19 11/05/19 11:00 14:31 15:00 15:31 Temp 99.2 98.8 99.2 98.8 Pulse 106 112 Resp 18 20 B/P (MAP) 147/83 (104) 134/80 (98) Pulse Ox 97 96 O2 Delivery Room Air Room Air Room Air Room Air 11/05/19 11/05/19 11/05/19 11/05/19 19:00 19:55 21:30 21:41 Temp 99.0 99.0 Pulse 114 114 Resp 18 B/P (MAP) 155/92 (113) 155/92 Pulse Ox 97 O2 Delivery Room Air Room Air Room Air 11/05/19 11/05/19 11/06/19 11/06/19 22:51 23:00 00:20 03:00 Temp 98.7 98.1 98.7 98.1 Pulse 105 98 94 Resp 18 18 18 B/P (MAP) 154/89 (110) 141/80 (100) 149/81 (103) Pulse Ox 97 96 100 O2 Delivery Room Air Room Air Room Air Room Air 11/06/19 11/06/19 07:00 10:03 Temp 98.2 98.2 Pulse 94 94 Resp 18 B/P (MAP) 155/83 (107) 155/83 Pulse Ox 96 O2 Delivery Room Air Intake and Output 11/05/19 11/05/19 11/06/19 15:00 23:00 07:00 Intake Total 0 ml Output Total 650 ml 700 ml Balance -650 ml -700 ml Justicifation of Admission Dx: Justifications for Admission: Justification of Admission Dx: N/A DENISE LENNON MD Nov 06, 2019 10:34
--- NOTE | 2019-11-06 11:27 | PDOC ---
PROGRESS NOTES Subjective Subjective No new complaints. Objective Objective Vital Signs Date Time Temp Pulse Resp B/P (MAP) Pulse Ox O2 Delivery O2 Flow Rate FiO2 11/06/19 10:03 94 155/83 11/06/19 07:00 98.2 18 96 Room Air 98.2 Intake and Output 11/06/19 07:00 Intake Total 0 ml Output Total 1350 ml Balance -1350 ml Intake Oral 0 ml Output Urine Total 1350 ml # Voids 1 # Bowel Movements 1 Physical Exam Physical Exam She is alert,supine in bed and moves all 4 extremities actively,less so of her lower extremities and she had pain free ROM of her extremity joints. She admits of lack of appetite. She had dressing in place to right leg wound. No apparent injury from sliding off bed last night. Assessment Assessment Problems Medical Problems: (1) Leg pain, bilateral Status: Acute (2) Peripheral edema Status: Acute Plan Plan of Care To continue present care efforts as tolerated and to long-term care unit,when medically stable,if she needs continued antibiotics and wound care. Comment Review of Relevant I have reviewed the following items jorge luis (where applicable) has been applied. Labs Laboratory Tests Test 11/04/19 11:51 11/04/19 16:54 11/04/19 20:45 11/05/19 00:27 Glucose (Fingerstick) 115 mg/dL (70-99) 153 mg/dL (70-99) 200 mg/dL (70-99) 193 mg/dL (70-99) Test 11/05/19 05:53 11/05/19 07:51 11/05/19 11:40 11/05/19 16:51 Glucose (Fingerstick) 186 mg/dL (70-99) 165 mg/dL (70-99) 246 mg/dL (70-99) 166 mg/dL (70-99) Test 11/05/19 20:47 11/06/19 08:13 Glucose (Fingerstick) 215 mg/dL (70-99) 140 mg/dL (70-99) Laboratory Tests Test 11/05/19 11:40 11/05/19 16:51 11/05/19 20:47 11/06/19 08:13 Glucose (Fingerstick) 246 mg/dL (70-99) 166 mg/dL (70-99) 215 mg/dL (70-99) 140 mg/dL (70-99) Medications Current Medications Fentanyl Citrate (Fentanyl 2ml Vial) 50 mcg 1X ONCE IVP Last administered on 11/02/19at 12:00; Start 11/02/19 at 11:45; Stop 11/02/19 at 11:46; Status DC Sodium Chloride 500 ml @ 500 mls/hr 1X ONCE IV Last administered on 11/02/19at 13:14; Start 11/02/19 at 13:15; Stop 11/02/19 at 14:14; Status DC Acetaminophen/ Hydrocodone Bitart (Lortab 5/325) 1 tab 1X ONCE PO Last administered on 11/02/19at 15:16; Start 11/02/19 at 15:15; Stop 11/02/19 at 15:16; Status DC Amitriptyline HCl (Elavil) 60 mg HS PO Last administered on 11/05/19 21:30; Start 11/02/19 at 21:00 Clonidine HCl (Catapres Tts-3) 1 patch WEEKLY TD ; Start 11/03/19 at 09:00 Diclofenac Sodium (Voltaren) 1 becca QID TP Last administered on 11/05/19at 08:39; Start 11/02/19 at 18:00 Labetalol HCl (Trandate) 200 mg BID PO Last administered on 11/06/19 10:03; Start 11/02/19 at 21:00 Lactobacillus Rhamnosus (Culturelle) 1 cap BID PO Last administered on 11/06/19 10:03; Start 11/02/19 at 21:00 Lidocaine (Lidoderm) 1 patch HS TD Last administered on 11/04/19at 20:41; Start 11/02/19 at 21:00 Pantoprazole Sodium (Protonix) 40 mg DAILYAC PO Last administered on 11/06/19 06:08; Start 11/03/19 at 07:30 Non-Formulary Medication (Albuterol Sulfate (Proair Respiclick)) 2 puff PRN Q4- 6HRS PRN IH shortness of breath; Start 11/02/19 at 17:00; Status UNV Misoprostol (Cytotec 200mcg Tab) 200 mcg BID PO Last administered on 11/06/19 10:03; Start 11/02/19 at 21:00 Glimepiride (Amaryl) 4 mg BID PO Last administered on 11/06/19 10:04; Start 11/02/19 at 21:00 Atorvastatin Calcium (Lipitor) 10 mg QHS PO Last administered on 11/05/19 21:31; Start 11/02/19 at 21:00 Pregabalin (Lyrica) 150 mg BID PO Last administered on 11/06/19 10:04; Start 11/02/19 at 21:00 Prochlorperazine Maleate (Compazine) 10 mg PRN Q8HRS PRN PO NAUSEA/VOMITING Last administered on 11/05/19 04:22; Start 11/02/19 at 17:15 Miscellaneous (Lidoderm Patch Removal) 1 ea DAILY MC Last administered on 11/06/19 09:00; Start 11/03/19 at 09:00 Diclofenac Sodium (Voltaren) 75 mg BID PO Last administered on 11/06/19 10:03; Start 11/02/19 at 21:00 Albuterol Sulfate (Ventolin Neb Soln) 2.5 mg PRN Q4HRS PRN NEB SHORTNESS OF BREATH Last administered on 11/05/19 06:42; Start 11/02/19 at 17:15 Oxycodone/ Acetaminophen (Percocet 7.5/ 325) 1 tab PRN Q4HRS PRN PO PAIN MILD TO MOD; Start 11/02/19 at 17:45 Oxycodone/ Acetaminophen (Percocet 7.5/ 325) 2 tab PRN Q4HRS PRN PO PAIN SEVERE Last administered on 11/05/19 21:41; Start 11/02/19 at 17:45 Morphine Sulfate (Morphine Sulfate) 2 mg PRN Q2HR PRN IV PAIN Last administered on 11/05/19 00:21; Start 11/02/19 at 21:30 Methylprednisolone Acetate (DEPO-Medrol 40MG VIAL) 40 mg 1X ONCE IM Last administered on 11/04/19 13:45; Start 11/04/19 at 13:30; Stop 11/04/19 at 13:31; Status DC Methylprednisolone Acetate (DEPO-Medrol 40MG VIAL) 40 mg 1X ONCE IM Last administered on 11/04/19 13:45; Start 11/04/19 at 13:30; Stop 11/04/19 at 13:31; Status DC Bupivacaine HCl (Sensorcaine-Mpf 0.25%) 10 ml 1X ONCE IJ Last administered on 11/04/19at 13:45; Start 11/04/19 at 13:30; Stop 11/04/19 at 13:31; Status DC Multi-Ingredient Ointment (Hydrocerin Cream) 1 becca PRN Q1HR PRN TP DRY SKIN / SCALING; Start 11/04/19 at 13:30 Linezolid (Zyvox) 600 mg BID PO Last administered on 11/05/19at 08:39; Start 11/04/19 at 21:00; Stop 11/05/19 at 16:10; Status DC Doxycycline Hyclate (Vibra-Tab) 100 mg BID PO Last administered on 11/06/19at 10:03; Start 11/05/19 at 21:00 Active Scripts Active Lidocaine PATCH (Lidocaine) 1 Each Adh..patch 1 Patch TD HS 30 Days Culturelle (Lactobacillus Rhamnosus Gg) 1 Each Cap.sprink 1 Cap PO BID 30 Days Pantoprazole Sodium (Pantoprazole Sodium) 40 Mg Tablet.dr 40 Mg PO DAILYAC 30 Days Polyethylene Glycol 3350 17 Gm Powd.pack 17 Gm PO PRN BID PRN 30 Days Amlodipine Besylate 10 Mg Tablet 10 Mg PO DAILY 30 Days Hydralazine Hcl 25 Mg Tablet 25 Mg PO BID 30 Days Clonidine Tts-3 (Clonidine) 1 Each Patch.tdwk 1 Patch TD WEEKLY 30 Days Amox Tr-K Clv 875-125 Mg Tab (Amoxicillin/Potassium Clav) 1 Each Tablet 1 Tab PO BID 10 Days Aspirin 81 Mg Tab.chew 81 Mg PO DAILYWBKFT 30 Days Reported Percocet 7.5-325 Mg Tablet (Oxycodone/Acetaminophen) 1 Each Tablet 2 Tab PO PRN Q4HRS PRN Percocet 7.5-325 Mg Tablet (Oxycodone/Acetaminophen) 1 Each Tablet 1 Tab PO PRN Q4HRS PRN Voltaren (Diclofenac Sodium) 100 Gm Gel..gram. 1 Gm TP QID 30 Days apply to affected area(s) Triamcinolone Acetonide 0.1% Cream (Triamcinolone Acetonide) 15 Gm Cream..g. 1 Becca TP TID Tramadol Hcl 100 Mg Tbmp.24hr 1 Tab PO PRN Q6HRS PRN MDD 1 Tablet(s) 30 Days Proair Respiclick (Albuterol Sulfate) 90 Mcg Aer.pow.ba 2 Puff IH PRN Q4-6HRS PRN Lyrica (Pregabalin) 150 Mg Capsule 1 Cap PO BID Emu-Lac Hydrating Cream (Ammonium Lactate/Emu Oil) 120 Ml Cream.ml. 120 Ml TP DAILY Arthrotec 75 Mg-200 Mcg Tab (Diclofenac Sodium/Misoprostol) 1 Each Tab.ir.dr 1 Tab PO BID Amitriptyline Hcl 10 Mg Tablet 60 Mg PO HS Glimepiride 4 Mg Tablet 1 Tab PO BID Compazine (Prochlorperazine Maleate) 10 Mg Tablet 10 Mg PO PRN Q8HRS PRN Pravastatin Sodium 40 Mg Tablet 1 Tab PO QHS Labetalol Hcl 200 Mg Tablet 1 Tab PO BID Vitals/I & O Vital Sign - Last 24 Hours 11/05/19 11/05/19 11/05/19 11/05/19 14:31 15:00 15:31 19:00 Temp 98.8 99.0 98.8 99.0 Pulse 112 114 Resp 20 18 B/P (MAP) 134/80 (98) 155/92 (113) Pulse Ox 96 97 O2 Delivery Room Air Room Air Room Air Room Air 11/05/19 11/05/19 11/05/19 11/05/19 19:55 21:30 21:41 22:51 Pulse 114 B/P (MAP) 155/92 O2 Delivery Room Air Room Air Room Air 11/05/19 11/06/19 11/06/19 11/06/19 23:00 00:20 03:00 07:00 Temp 98.7 98.1 98.2 98.7 98.1 98.2 Pulse 105 98 94 94 Resp 18 18 18 18 B/P (MAP) 154/89 (110) 141/80 (100) 149/81 (103) 155/83 (107) Pulse Ox 97 96 100 96 O2 Delivery Room Air Room Air Room Air Room Air 11/06/19 10:03 Pulse 94 B/P (MAP) 155/83 Intake and Output 11/05/19 11/05/19 11/06/19 15:00 23:00 07:00 Intake Total 0 ml Output Total 650 ml 700 ml Balance -650 ml -700 ml Justicifation of Admission Dx: Justifications for Admission: Justification of Admission Dx: N/A DOC PEDRO MD Nov 06, 2019 11:27
--- NOTE | 2019-11-06 11:39 | PDOC ---
Infectious Disease Note Subjective Subjective Tired this morning, not very hungry No increase pain or further N/V Denies SOA/F/C ROS ROS as mentioned above Vital Sign Vital Signs Vital Signs Date Time Temp Pulse Resp B/P (MAP) Pulse Ox O2 Delivery O2 Flow Rate FiO2 11/06/19 10:03 94 155/83 11/06/19 07:00 98.2 18 96 Room Air 98.2 Physical Exam PHYSICAL EXAM GENERAL: Propped up in bed, resting quietly HEENT: Oropharynx pink and moist. No lesions/thrush seen. NECK: Supple. LUNGS: Clear to auscultation. HEART: S1, S2 regular. ABDOMEN: Obese, soft, nontender with bowel sounds present. EXTREMITIES: BLE less edema, + wrinkles, RLE -superficial ulcerations, less redness SKIN: Warm to touch. No signs of rash. NEUROLOGIC: Arouses to name Labs Lab Laboratory Tests Test 11/05/19 11:40 11/05/19 16:51 11/05/19 20:47 11/06/19 08:13 Glucose (Fingerstick) 246 mg/dL (70-99) 166 mg/dL (70-99) 215 mg/dL (70-99) 140 mg/dL (70-99) Test 11/06/19 11:25 Glucose (Fingerstick) 136 mg/dL (70-99) Objective Assessment Venous stasis ulcer of right lower extremity asso warmth and mild redness. Chronic edema lower extremities Multiple abx allergies listed. However, patient says she is not allergic to anything. She has previously tolerated antibiotics in the past including Augmentin, Zosyn and Rocephin without problem. The list has been updated. D/w pharmacy. 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 Chart reviewed in detail. Above plan co-formulated and agreed upon with HISTOLOGY SPECIALIST on 11/06/2019. TJ NOVA APRN Nov 06, 2019 11:39 JESSICA ESCOBEDO MD Nov 07, 2019 19:49
[2019-11-06] MEDS: oxyCODONE/APAP 7.5/325 1 TAB TABLET PO PRN (13:45)
--- NOTE | 2019-11-06 17:28 | NUR ---
Patient refused to allow staff to turn q2 hours. Patient encouraged every 2 hours to shift position and offered pillow. Patient stated she would "do it by my self". Will continue to monitor.
[2019-11-06] MEDS: MORPHINE SULFATE 2 MG/ML VIAL. IV PRN (17:40)
[2019-11-06] MEDS: ATORVASTATIN CALCIUM 10 MG TABLET. PO SCH (20:44)
[2019-11-06] MEDS: AMITRIPTYLINE HCL 10 MG TABLET. PO SCH (20:45)
[2019-11-06] MEDS: LIDOCAINE (700MG/PATCH) PATCH. TD SCH (20:46)
[2019-11-07 03:06] VITALS: BP 156/87
[2019-11-07] MEDS: oxyCODONE/APAP 7.5/325 1 TAB TABLET PO PRN ×2 (04:28→20:08)
[2019-11-07] MEDS: PANTOPRAZOLE 40 MG TABLET.DR. PO SCH (06:09)
[2019-11-07 07:00] VITALS: BP 148/81
[2019-11-07] MEDS: LABETALOL HCL 200 MG TABLET PO SCH ×2 (08:42→20:51)
[2019-11-07] MEDS: DICLOFENAC SODIUM 25 MG TABLET.DR PO SCH ×2 (08:43→20:50)
[2019-11-07] MEDS: DOXYCYCLINE HYCLATE 100 MG TABLET PO SCH ×2 (08:43→20:50)
[2019-11-07] MEDS: LACTOBACILLUS RHAMNOSUS GG 1 CAPSULE. PO SCH ×2 (08:43→20:51)
[2019-11-07] MEDS: GLIMEPIRIDE 2 MG TABLET. PO SCH ×2 (08:43→20:50)
[2019-11-07] MEDS: PREGABALIN 75 MG CAPSULE PO SCH ×2 (08:43→20:50)
[2019-11-07] MEDS: miSOPROStol 200 MCG TABLET PO SCH ×2 (08:43→20:50)
[2019-11-07] MEDS: PATCH REMOVAL. MC SCH (09:00)
[2019-11-07] MEDS: DICLOFENAC SODIUM 1% TOPICAL GEL 100GM TUBE. TP SCH ×4 (09:00→20:51)
[2019-11-07 11:00] VITALS: BP 167/98
[2019-11-07] MEDS: ALBUTEROL SULFATE 2.5 MG/3 ML NEBU. NEB PRN (11:01)
--- NOTE | 2019-11-07 11:10 | PDOC ---
PROGRESS NOTES Chief Complaint Chief Complaint Edema with venous insufficiency and obesity History of heart failure CHF, asthma, arthritis, depression, diabetes, GERD, coronary artery disease, hypertension, TIAs, neuropathy, cholecystectomy, tonsillectomy, hysterectomy, previous tobacco abuse. History of Present Illness History of Present Illness 11/06,. still inpain poorly mobile, t o skilled in AM, COVID test pending Vitals Vitals Vital Signs Date Time Temp Pulse Resp B/P (MAP) Pulse Ox O2 Delivery O2 Flow Rate FiO2 11/07/19 11:02 95 Room Air 11/07/19 08:42 98 148/81 11/07/19 07:00 98.2 18 98.2 Physical Exam Physical Exam GENERAL: Propped up in bed, resting quietly HEENT: Oropharynx pink and moist. No lesions/thrush seen. NECK: Supple. LUNGS: Clear to auscultation. HEART: S1, S2 regular. ABDOMEN: Obese, soft, nontender with bowel sounds present. EXTREMITIES: BLE less edema, + wrinkles, RLE -superficial ulcerations, less redness SKIN: Warm to touch. No signs of rash. NEUROLOGIC: Arouses to name General: Alert, Oriented X3, Cooperative, No acute distress Heart: Regular rate, Normal S1, Normal S2, Other (2/6 systolic murmur to LLS border) Lungs: Clear Abdomen: Normal bowel sounds Extremities: No cyanosis, Other (mild erythema to RLE, 2+ bilateral LE pitting edema with 2+ pedal pulses to both feet) Skin: No breakdown, No significant lesion Labs LABS Laboratory Tests Test 11/06/19 11:25 11/06/19 19:55 11/07/19 07:37 Glucose (Fingerstick) 136 mg/dL (70-99) 162 mg/dL (70-99) 117 mg/dL (70-99) Assessment and Plan Assessmemt and Plan Problems Medical Problems: (1) Leg pain, bilateral Status: Acute (2) Peripheral edema Status: Acute Comment Review of Relevant I have reviewed the following items jorge luis (where applicable) has been applied. Labs Laboratory Tests Test 11/05/19 11:40 11/05/19 16:51 11/05/19 20:47 11/06/19 08:13 Glucose (Fingerstick) 246 mg/dL (70-99) 166 mg/dL (70-99) 215 mg/dL (70-99) 140 mg/dL (70-99) Test 11/06/19 11:25 11/06/19 19:55 11/07/19 07:37 Glucose (Fingerstick) 136 mg/dL (70-99) 162 mg/dL (70-99) 117 mg/dL (70-99) Laboratory Tests Test 11/06/19 11:25 11/06/19 19:55 11/07/19 07:37 Glucose (Fingerstick) 136 mg/dL (70-99) 162 mg/dL (70-99) 117 mg/dL (70-99) Medications Current Medications Fentanyl Citrate (Fentanyl 2ml Vial) 50 mcg 1X ONCE IVP Last administered on 11/02/19at 12:00; Start 11/02/19 at 11:45; Stop 11/02/19 at 11:46; Status DC Sodium Chloride 500 ml @ 500 mls/hr 1X ONCE IV Last administered on 11/02/19at 13:14; Start 11/02/19 at 13:15; Stop 11/02/19 at 14:14; Status DC Acetaminophen/ Hydrocodone Bitart (Lortab 5/325) 1 tab 1X ONCE PO Last administered on 11/02/19at 15:16; Start 11/02/19 at 15:15; Stop 11/02/19 at 15:16; Status DC Amitriptyline HCl (Elavil) 60 mg HS PO Last administered on 11/06/19at 20:45; Start 11/02/19 at 21:00 Clonidine HCl (Catapres Tts-3) 1 patch WEEKLY TD ; Start 11/03/19 at 09:00 Diclofenac Sodium (Voltaren) 1 becca QID TP Last administered on 11/06/19at 20:45; Start 11/02/19 at 18:00 Labetalol HCl (Trandate) 200 mg BID PO Last administered on 11/07/19at 08:42; Start 11/02/19 at 21:00 Lactobacillus Rhamnosus (Culturelle) 1 cap BID PO Last administered on 11/07/19at 08:43; Start 11/02/19 at 21:00 Lidocaine (Lidoderm) 1 patch HS TD Last administered on 11/06/19at 20:46; Start 11/02/19 at 21:00 Pantoprazole Sodium (Protonix) 40 mg DAILYAC PO Last administered on 11/07/19 06:09; Start 11/03/19 at 07:30 Non-Formulary Medication (Albuterol Sulfate (Proair Respiclick)) 2 puff PRN Q4- 6HRS PRN IH shortness of breath; Start 11/02/19 at 17:00; Status UNV Misoprostol (Cytotec 200mcg Tab) 200 mcg BID PO Last administered on 11/07/19 08:43; Start 11/02/19 at 21:00 Glimepiride (Amaryl) 4 mg BID PO Last administered on 11/07/19 08:43; Start 11/02/19 at 21:00 Atorvastatin Calcium (Lipitor) 10 mg QHS PO Last administered on 11/06/19 20:44; Start 11/02/19 at 21:00 Pregabalin (Lyrica) 150 mg BID PO Last administered on 11/07/19 08:43; Start 11/02/19 at 21:00 Prochlorperazine Maleate (Compazine) 10 mg PRN Q8HRS PRN PO NAUSEA/VOMITING Last administered on 11/05/19 04:22; Start 11/02/19 at 17:15 Miscellaneous (Lidoderm Patch Removal) 1 ea DAILY MC Last administered on 11/06/19 09:00; Start 11/03/19 at 09:00 Diclofenac Sodium (Voltaren) 75 mg BID PO Last administered on 11/07/19 08:43; Start 11/02/19 at 21:00 Albuterol Sulfate (Ventolin Neb Soln) 2.5 mg PRN Q4HRS PRN NEB SHORTNESS OF BREATH Last administered on 11/07/19 11:01; Start 11/02/19 at 17:15 Oxycodone/ Acetaminophen (Percocet 7.5/ 325) 1 tab PRN Q4HRS PRN PO PAIN MILD TO MOD; Start 11/02/19 at 17:45 Oxycodone/ Acetaminophen (Percocet 7.5/ 325) 2 tab PRN Q4HRS PRN PO PAIN SEVERE Last administered on 11/07/19 04:28; Start 11/02/19 at 17:45 Morphine Sulfate (Morphine Sulfate) 2 mg PRN Q2HR PRN IV PAIN Last administered on 11/06/19at 17:40; Start 11/02/19 at 21:30 Methylprednisolone Acetate (DEPO-Medrol 40MG VIAL) 40 mg 1X ONCE IM Last administered on 11/04/19at 13:45; Start 11/04/19 at 13:30; Stop 11/04/19 at 13:31; Status DC Methylprednisolone Acetate (DEPO-Medrol 40MG VIAL) 40 mg 1X ONCE IM Last administered on 11/04/19at 13:45; Start 11/04/19 at 13:30; Stop 11/04/19 at 13:31; Status DC Bupivacaine HCl (Sensorcaine-Mpf 0.25%) 10 ml 1X ONCE IJ Last administered on 11/04/19at 13:45; Start 11/04/19 at 13:30; Stop 11/04/19 at 13:31; Status DC Multi-Ingredient Ointment (Hydrocerin Cream) 1 becca PRN Q1HR PRN TP DRY SKIN / SCALING; Start 11/04/19 at 13:30 Linezolid (Zyvox) 600 mg BID PO Last administered on 11/05/19at 08:39; Start 11/04/19 at 21:00; Stop 11/05/19 at 16:10; Status DC Doxycycline Hyclate (Vibra-Tab) 100 mg BID PO Last administered on 11/07/19at 08:43; Start 11/05/19 at 21:00 Active Scripts Active Lidocaine PATCH (Lidocaine) 1 Each Adh..patch 1 Patch TD HS 30 Days Culturelle (Lactobacillus Rhamnosus Gg) 1 Each Cap.sprink 1 Cap PO BID 30 Days Pantoprazole Sodium (Pantoprazole Sodium) 40 Mg Tablet.dr 40 Mg PO DAILYAC 30 Days Polyethylene Glycol 3350 17 Gm Powd.pack 17 Gm PO PRN BID PRN 30 Days Amlodipine Besylate 10 Mg Tablet 10 Mg PO DAILY 30 Days Hydralazine Hcl 25 Mg Tablet 25 Mg PO BID 30 Days Clonidine Tts-3 (Clonidine) 1 Each Patch.tdwk 1 Patch TD WEEKLY 30 Days Amox Tr-K Clv 875-125 Mg Tab (Amoxicillin/Potassium Clav) 1 Each Tablet 1 Tab PO BID 10 Days Aspirin 81 Mg Tab.chew 81 Mg PO DAILYWBKFT 30 Days Reported Percocet 7.5-325 Mg Tablet (Oxycodone/Acetaminophen) 1 Each Tablet 2 Tab PO PRN Q4HRS PRN Percocet 7.5-325 Mg Tablet (Oxycodone/Acetaminophen) 1 Each Tablet 1 Tab PO PRN Q4HRS PRN Voltaren (Diclofenac Sodium) 100 Gm Gel..gram. 1 Gm TP QID 30 Days apply to affected area(s) Triamcinolone Acetonide 0.1% Cream (Triamcinolone Acetonide) 15 Gm Cream..g. 1 Becca TP TID Tramadol Hcl 100 Mg Tbmp.24hr 1 Tab PO PRN Q6HRS PRN MDD 1 Tablet(s) 30 Days Proair Respiclick (Albuterol Sulfate) 90 Mcg Aer.pow.ba 2 Puff IH PRN Q4-6HRS PRN Lyrica (Pregabalin) 150 Mg Capsule 1 Cap PO BID Emu-Lac Hydrating Cream (Ammonium Lactate/Emu Oil) 120 Ml Cream.ml. 120 Ml TP DAILY Arthrotec 75 Mg-200 Mcg Tab (Diclofenac Sodium/Misoprostol) 1 Each Tab.ir.dr 1 Tab PO BID Amitriptyline Hcl 10 Mg Tablet 60 Mg PO HS Glimepiride 4 Mg Tablet 1 Tab PO BID Compazine (Prochlorperazine Maleate) 10 Mg Tablet 10 Mg PO PRN Q8HRS PRN Pravastatin Sodium 40 Mg Tablet 1 Tab PO QHS Labetalol Hcl 200 Mg Tablet 1 Tab PO BID Vitals/I & O Vital Sign - Last 24 Hours 11/06/19 11/06/19 11/06/19 11/06/19 13:45 14:45 15:00 17:40 Temp 98.7 98.7 Pulse 95 Resp 18 B/P (MAP) 145/72 (96) Pulse Ox 95 O2 Delivery Room Air Room Air Room Air Room Air 11/06/19 11/06/19 11/06/19 11/06/19 18:10 19:00 19:35 20:44 Temp 98.7 98.7 Pulse 96 96 Resp 22 B/P (MAP) 134/78 (96) 134/78 Pulse Ox 99 O2 Delivery Room Air Room Air Room Air 11/06/19 11/07/19 11/07/19 11/07/19 23:00 03:06 04:28 06:10 Temp 98.8 98.7 98.8 98.7 Pulse 95 96 Resp 21 21 B/P (MAP) 153/92 (112) 156/87 (110) Pulse Ox 99 100 O2 Delivery Room Air Room Air Room Air Room Air 11/07/19 11/07/19 11/07/19 11/07/19 07:00 08:00 08:42 11:02 Temp 98.2 98.2 Pulse 97 98 Resp 18 B/P (MAP) 148/81 (103) 148/81 Pulse Ox 95 95 O2 Delivery Room Air Room Air Room Air Intake and Output 11/06/19 11/06/19 11/07/19 15:00 23:00 07:00 Intake Total 180 ml 240 ml Output Total 1000 ml 500 ml Balance -820 ml -260 ml Justicifation of Admission Dx: Justifications for Admission: Justification of Admission Dx: N/A DENISE LENNON MD Nov 07, 2019 11:10
--- NOTE | 2019-11-07 11:27 | PDOC ---
Infectious Disease Note Subjective Subjective Periods of confusion Not sleeping well No increase pain No further N/V Denies SOA/F/C ROS ROS as mentioned above Vital Sign Vital Signs Vital Signs Date Time Temp Pulse Resp B/P (MAP) Pulse Ox O2 Delivery O2 Flow Rate FiO2 11/07/19 11:02 95 Room Air 11/07/19 11:00 98.0 98 20 167/98 (121) 98.0 Physical Exam PHYSICAL EXAM GENERAL: Propped up in bed, alert, relaxed appearance, watching TV HEENT: Oropharynx pink and moist. No lesions/thrush seen. NECK: Supple. LUNGS: Clear to auscultation. HEART: S1, S2 regular. ABDOMEN: Obese, soft, nontender with bowel sounds present. EXTREMITIES: BLE less edema, + wrinkles, RLE -superficial ulcerations - clean, less warmth and redness SKIN: Warm to touch. No signs of rash. NEUROLOGIC: Alert, answering simple questions appropriately PIV Labs Lab Laboratory Tests Test 11/06/19 11:25 11/06/19 19:55 11/07/19 07:37 Glucose (Fingerstick) 136 mg/dL (70-99) 162 mg/dL (70-99) 117 mg/dL (70-99) Objective Assessment Venous stasis ulcer of right lower extremity asso warmth and mild redness - improving Chronic edema lower extremities Multiple abx allergies listed. However, patient says she is not allergic to anything. She has previously tolerated antibiotics in the past including Augmentin, Zosyn and Rocephin without problem. The list has been updated. D/w pharmacy. DJD of knees s/p steroid injection bilaterally, 11/03 Morbid obesity CKD CHF Diabetes with neuropathy Plan Plan of Care Local wound care as directed Leg elevation and edema control Continue doxy, 11/04 Had some N/V with Zyvox. Probiotics Maintain aspiration precautions Anticipating discharge soon, possibly to SNF D/w nursing Patient discussed with SPRAY PAINTING MACHINE OPERATOR. Chart reviewed in detail. Above plan co-formulated and agreed upon with SPRAY PAINTING MACHINE OPERATOR on 11/07/2019. TJ NOVA APRN Nov 07, 2019 11:27 JESSICA ESCOBEDO MD Nov 07, 2019 19:49
[2019-11-07] MEDS: MORPHINE SULFATE 2 MG/ML VIAL. IV PRN (11:33)
--- NOTE | 2019-11-07 11:43 | NUR ---
patient needs to be screened for SNU. Unable to discharge today d/t no SW today. COVID swab ordered.
[2019-11-07 15:00] VITALS: BP 155/95
[2019-11-07 19:00] VITALS: BP 151/92
[2019-11-07] MEDS: AMITRIPTYLINE HCL 10 MG TABLET. PO SCH (20:49)
[2019-11-07] MEDS: ATORVASTATIN CALCIUM 10 MG TABLET. PO SCH (20:50)
[2019-11-07] MEDS: LIDOCAINE (700MG/PATCH) PATCH. TD SCH (20:52)
[2019-11-07 22:59] VITALS: BP 142/90
[2019-11-07] MEDS ORDERED: cloNIDine TTS-3 1 PATCH PATCH.TDWK TD SCH (23:30)
[2019-11-08] MEDS: oxyCODONE/APAP 7.5/325 1 TAB TABLET PO PRN ×3 (00:20→13:01)
[2019-11-08 03:00] VITALS: BP 122/64
[2019-11-08 07:15] VITALS: BP 136/70
[2019-11-08] MEDS: PANTOPRAZOLE 40 MG TABLET.DR. PO SCH (08:26)
[2019-11-08] MEDS: miSOPROStol 200 MCG TABLET PO SCH (08:26)
[2019-11-08] MEDS: DICLOFENAC SODIUM 25 MG TABLET.DR PO SCH (08:27)
[2019-11-08] MEDS: LACTOBACILLUS RHAMNOSUS GG 1 CAPSULE. PO SCH (08:27)
[2019-11-08] MEDS: PREGABALIN 75 MG CAPSULE PO SCH (08:27)
[2019-11-08] MEDS: DOXYCYCLINE HYCLATE 100 MG TABLET PO SCH (08:27)
[2019-11-08] MEDS: LABETALOL HCL 200 MG TABLET PO SCH (08:27)
[2019-11-08] MEDS: DICLOFENAC SODIUM 1% TOPICAL GEL 100GM TUBE. TP SCH ×2 (08:28→13:01)
[2019-11-08] MEDS: GLIMEPIRIDE 2 MG TABLET. PO SCH (08:28)
--- NOTE | 2019-11-08 08:29 | PDOC ---
PROGRESS NOTES Chief Complaint Chief Complaint Edema with venous insufficiency and obesity History of heart failure CHF Asthma Depression GERD Coronary artery disease Hypertension TIAs Previous tobacco abuse. Venous stasis ulcer of right lower extremity associated with mild cellulitic changes. Chronic edema lower extremities bilaterally. Degenerative joint disease of knees, status post steroid injection bilaterally, 11/04/2019. Morbid obesity. Chronic kidney disease. Diabetes with neuropathy. History of Present Illness History of Present Illness Ms Massey is a 74 yo F w/ PMHx chronic diastolic heart failure, morbid obesity, venous insufficiency, transient ischemic attack, peripheral neuropathy, hypertension, GERD, degenerative joint disease, diabetes mellitus type 2, chronic kidney disease presented with complaints of increased swelling and pain in lower extremities bilaterally associated with difficulty walking. She had developed blisters on her right leg that have since ruptured. A recent venous Doppler ultrasound showed no evidence of DVT. The patient denied fevers, chills, sweats or body aches. Seen by ID, PMR, Cardiology in consultation. Initially on IV antibiotics, changed to PO Had poor mobility, PT recommended SNF, she requests home with home health. 11/06: still in pain, poorly mobile, t o skilled in AM, COVID test negative Today patient getting around a bit better, requests to go home. Changed to PO zyvox. No CP or SOB. Vitals Vitals Vital Signs Date Time Temp Pulse Resp B/P (MAP) Pulse Ox O2 Delivery O2 Flow Rate FiO2 11/08/19 07:15 98.1 85 18 136/70 (92) 96 Room Air 98.1 Physical Exam Physical Exam GENERAL: Propped up in bed, alert, relaxed appearance, watching TV HEENT: Oropharynx pink and moist. No lesions/thrush seen. NECK: Supple. LUNGS: Clear to auscultation. HEART: S1, S2 regular. ABDOMEN: Obese, soft, nontender with bowel sounds present. EXTREMITIES: BLE less edema, + wrinkles, RLE -superficial ulcerations - clean, less warmth and redness SKIN: Warm to touch. No signs of rash. NEUROLOGIC: Alert, answering simple questions appropriately PIV General: Alert, Oriented X3, Cooperative, No acute distress Heart: Regular rate, Normal S1, Normal S2, Other (2/6 systolic murmur to LLS border) Lungs: Clear Abdomen: Normal bowel sounds Extremities: No cyanosis, Other (mild erythema to RLE, 2+ bilateral LE pitting edema with 2+ pedal pulses to both feet) Skin: No breakdown, No significant lesion Labs LABS Laboratory Tests Test 11/07/19 11:53 11/07/19 17:38 11/07/19 20:34 11/08/19 07:35 Glucose (Fingerstick) 137 mg/dL (70-99) 148 mg/dL (70-99) 149 mg/dL (70-99) 119 mg/dL (70-99) Assessment and Plan Assessmemt and Plan Problems Medical Problems: (1) Leg pain, bilateral Status: Acute (2) Peripheral edema Status: Acute Comment Review of Relevant I have reviewed the following items jorge luis (where applicable) has been applied. Labs Laboratory Tests Test 11/06/19 11:25 11/06/19 19:55 11/07/19 07:37 11/07/19 11:53 Glucose (Fingerstick) 136 mg/dL (70-99) 162 mg/dL (70-99) 117 mg/dL (70-99) 137 mg/dL (70-99) Test 11/07/19 17:38 11/07/19 20:34 11/08/19 07:35 Glucose (Fingerstick) 148 mg/dL (70-99) 149 mg/dL (70-99) 119 mg/dL (70-99) Laboratory Tests Test 11/07/19 11:53 11/07/19 17:38 11/07/19 20:34 11/08/19 07:35 Glucose (Fingerstick) 137 mg/dL (70-99) 148 mg/dL (70-99) 149 mg/dL (70-99) 119 mg/dL (70-99) Medications Current Medications Fentanyl Citrate (Fentanyl 2ml Vial) 50 mcg 1X ONCE IVP Last administered on 11/02/19at 12:00; Start 11/02/19 at 11:45; Stop 11/02/19 at 11:46; Status DC Sodium Chloride 500 ml @ 500 mls/hr 1X ONCE IV Last administered on 11/02/19at 13:14; Start 11/02/19 at 13:15; Stop 11/02/19 at 14:14; Status DC Acetaminophen/ Hydrocodone Bitart (Lortab 5/325) 1 tab 1X ONCE PO Last administered on 11/02/19at 15:16; Start 11/02/19 at 15:15; Stop 11/02/19 at 15:16; Status DC Amitriptyline HCl (Elavil) 60 mg HS PO Last administered on 11/07/19 20:49; Start 11/02/19 at 21:00 Clonidine HCl (Catapres Tts-3) 1 patch WEEKLY TD ; Start 11/03/19 at 09:00; Stop 11/08/19 at 01:01; Status DC Diclofenac Sodium (Voltaren) 1 becca QID TP Last administered on 11/06/19 20:45; Start 11/02/19 at 18:00 Labetalol HCl (Trandate) 200 mg BID PO Last administered on 11/07/19 20:51; Start 11/02/19 at 21:00 Lactobacillus Rhamnosus (Culturelle) 1 cap BID PO Last administered on 11/07/19 20:51; Start 11/02/19 at 21:00 Lidocaine (Lidoderm) 1 patch HS TD Last administered on 11/07/19 20:52; Start 11/02/19 at 21:00 Pantoprazole Sodium (Protonix) 40 mg DAILYAC PO Last administered on 11/07/19 06:09; Start 11/03/19 at 07:30 Non-Formulary Medication (Albuterol Sulfate (Proair Respiclick)) 2 puff PRN Q4- 6HRS PRN IH shortness of breath; Start 11/02/19 at 17:00; Status UNV Misoprostol (Cytotec 200mcg Tab) 200 mcg BID PO Last administered on 11/07/19 20:50; Start 11/02/19 at 21:00 Glimepiride (Amaryl) 4 mg BID PO Last administered on 11/07/19 20:50; Start 11/02/19 at 21:00 Atorvastatin Calcium (Lipitor) 10 mg QHS PO Last administered on 11/07/19 20:50; Start 11/02/19 at 21:00 Pregabalin (Lyrica) 150 mg BID PO Last administered on 11/07/19 20:50; Start 11/02/19 at 21:00 Prochlorperazine Maleate (Compazine) 10 mg PRN Q8HRS PRN PO NAUSEA/VOMITING Last administered on 7/3/20at 04:22; Start 11/02/19 at 17:15 Miscellaneous (Lidoderm Patch Removal) 1 ea DAILY MC Last administered on 11/06/19 09:00; Start 11/03/19 at 09:00 Diclofenac Sodium (Voltaren) 75 mg BID PO Last administered on 11/07/19 20:50; Start 11/02/19 at 21:00 Albuterol Sulfate (Ventolin Neb Soln) 2.5 mg PRN Q4HRS PRN NEB SHORTNESS OF BREATH Last administered on 11/07/19 11:01; Start 11/02/19 at 17:15 Oxycodone/ Acetaminophen (Percocet 7.5/ 325) 1 tab PRN Q4HRS PRN PO PAIN MILD TO MOD; Start 11/02/19 at 17:45 Oxycodone/ Acetaminophen (Percocet 7.5/ 325) 2 tab PRN Q4HRS PRN PO PAIN SEVERE Last administered on 11/08/19 04:30; Start 11/02/19 at 17:45 Morphine Sulfate (Morphine Sulfate) 2 mg PRN Q2HR PRN IV PAIN Last administered on 11/07/19 11:33; Start 11/02/19 at 21:30 Methylprednisolone Acetate (DEPO-Medrol 40MG VIAL) 40 mg 1X ONCE IM Last administered on 11/04/19 13:45; Start 11/04/19 at 13:30; Stop 11/04/19 at 13:31; Status DC Methylprednisolone Acetate (DEPO-Medrol 40MG VIAL) 40 mg 1X ONCE IM Last administered on 11/04/19 13:45; Start 11/04/19 at 13:30; Stop 11/04/19 at 13:31; Status DC Bupivacaine HCl (Sensorcaine-Mpf 0.25%) 10 ml 1X ONCE IJ Last administered on 11/04/19 13:45; Start 11/04/19 at 13:30; Stop 11/04/19 at 13:31; Status DC Multi-Ingredient Ointment (Hydrocerin Cream) 1 becca PRN Q1HR PRN TP DRY SKIN / SCALING; Start 11/04/19 at 13:30 Linezolid (Zyvox) 600 mg BID PO Last administered on 11/05/19 08:39; Start 11/04/19 at 21:00; Stop 11/05/19 at 16:10; Status DC Doxycycline Hyclate (Vibra-Tab) 100 mg BID PO Last administered on 11/07/19at 20:50; Start 11/05/19 at 21:00 Clonidine HCl (Catapres Tts-3) 1 patch WEEKLY TD Last administered on 11/07/19at 23:50; Start 11/07/19 at 23:30 Active Scripts Active Lidocaine PATCH (Lidocaine) 1 Each Adh..patch 1 Patch TD HS 30 Days Culturelle (Lactobacillus Rhamnosus Gg) 1 Each Cap.sprink 1 Cap PO BID 30 Days Pantoprazole Sodium (Pantoprazole Sodium) 40 Mg Tablet.dr 40 Mg PO DAILYAC 30 Days Polyethylene Glycol 3350 17 Gm Powd.pack 17 Gm PO PRN BID PRN 30 Days Amlodipine Besylate 10 Mg Tablet 10 Mg PO DAILY 30 Days Hydralazine Hcl 25 Mg Tablet 25 Mg PO BID 30 Days Clonidine Tts-3 (Clonidine) 1 Each Patch.tdwk 1 Patch TD WEEKLY 30 Days Amox Tr-K Clv 875-125 Mg Tab (Amoxicillin/Potassium Clav) 1 Each Tablet 1 Tab PO BID 10 Days Aspirin 81 Mg Tab.chew 81 Mg PO DAILYWBKFT 30 Days Reported Percocet 7.5-325 Mg Tablet (Oxycodone/Acetaminophen) 1 Each Tablet 2 Tab PO PRN Q4HRS PRN Percocet 7.5-325 Mg Tablet (Oxycodone/Acetaminophen) 1 Each Tablet 1 Tab PO PRN Q4HRS PRN Voltaren (Diclofenac Sodium) 100 Gm Gel..gram. 1 Gm TP QID 30 Days apply to affected area(s) Triamcinolone Acetonide 0.1% Cream (Triamcinolone Acetonide) 15 Gm Cream..g. 1 Becca TP TID Tramadol Hcl 100 Mg Tbmp.24hr 1 Tab PO PRN Q6HRS PRN MDD 1 Tablet(s) 30 Days Proair Respiclick (Albuterol Sulfate) 90 Mcg Aer.pow.ba 2 Puff IH PRN Q4-6HRS PRN Lyrica (Pregabalin) 150 Mg Capsule 1 Cap PO BID Emu-Lac Hydrating Cream (Ammonium Lactate/Emu Oil) 120 Ml Cream.ml. 120 Ml TP DAILY Arthrotec 75 Mg-200 Mcg Tab (Diclofenac Sodium/Misoprostol) 1 Each Tab.ir.dr 1 Tab PO BID Amitriptyline Hcl 10 Mg Tablet 60 Mg PO HS Glimepiride 4 Mg Tablet 1 Tab PO BID Compazine (Prochlorperazine Maleate) 10 Mg Tablet 10 Mg PO PRN Q8HRS PRN Pravastatin Sodium 40 Mg Tablet 1 Tab PO QHS Labetalol Hcl 200 Mg Tablet 1 Tab PO BID Vitals/I & O Vital Sign - Last 24 Hours 11/07/19 11/07/19 11/07/19 11/07/19 08:42 11:00 11:02 11:33 Temp 98.0 98.0 Pulse 98 98 Resp 20 B/P (MAP) 148/81 167/98 (121) Pulse Ox 97 95 O2 Delivery Room Air Room Air Room Air 11/07/19 11/07/19 11/07/19 11/07/19 12:03 15:00 19:00 19:30 Temp 98.6 98.6 98.6 98.6 Pulse 95 105 Resp 20 20 B/P (MAP) 155/95 (115) 151/92 (111) Pulse Ox 95 97 O2 Delivery Room Air Room Air Room Air Room Air 11/07/19 11/07/19 11/07/19 11/07/19 20:08 20:51 21:09 22:59 Temp 99.0 99.0 Pulse 105 98 Resp 20 B/P (MAP) 151/92 142/90 (107) Pulse Ox 95 O2 Delivery Room Air Room Air Room Air 11/08/19 11/08/19 11/08/19 11/08/19 00:20 01:20 03:00 04:30 Temp 98.4 98.4 Pulse 89 Resp 20 B/P (MAP) 122/64 (83) Pulse Ox 93 O2 Delivery Room Air Room Air Room Air Room Air 11/08/19 11/08/19 05:40 07:15 Temp 98.1 98.1 Pulse 85 Resp 18 B/P (MAP) 136/70 (92) Pulse Ox 96 O2 Delivery Room Air Room Air Intake and Output 11/07/19 11/07/19 11/08/19 15:00 23:00 07:00 Intake Total 300 ml Output Total 300 ml 250 ml Balance -300 ml 50 ml Justicifation of Admission Dx: Justifications for Admission: Justification of Admission Dx: N/A LALO SMITH MD Nov 08, 2019 08:29
[2019-11-08] MEDS: PATCH REMOVAL. MC SCH (08:35)
--- NOTE | 2019-11-08 08:55 | PDOC ---
PROGRESS NOTES Subjective Subjective No new complaints. Objective Objective Vital Signs Date Time Temp Pulse Resp B/P (MAP) Pulse Ox O2 Delivery O2 Flow Rate FiO2 11/08/19 08:27 85 136/70 11/08/19 07:15 98.1 18 96 Room Air 98.1 Intake and Output 11/08/19 07:00 Intake Total 300 ml Output Total 550 ml Balance -250 ml Intake Oral 300 ml Output Urine Total 550 ml # Voids 3 Physical Exam Physical Exam She is upine in bed and seems to be comfortable and she denies any significant low back or knee joint pain. She had dressing to her right leg. Assessment Assessment Problems Medical Problems: (1) Leg pain, bilateral Status: Acute (2) Peripheral edema Status: Acute Plan Plan of Care To assisted living facility with home health follow up or to jail facility whenmedically stable. Comment Review of Relevant I have reviewed the following items jorge luis (where applicable) has been applied. Labs Laboratory Tests Test 11/06/19 11:25 11/06/19 19:55 11/07/19 07:37 11/07/19 11:53 Glucose (Fingerstick) 136 mg/dL (70-99) 162 mg/dL (70-99) 117 mg/dL (70-99) 137 mg/dL (70-99) Test 11/07/19 17:38 11/07/19 20:34 11/08/19 07:35 Glucose (Fingerstick) 148 mg/dL (70-99) 149 mg/dL (70-99) 119 mg/dL (70-99) Laboratory Tests Test 11/07/19 11:53 11/07/19 17:38 11/07/19 20:34 11/08/19 07:35 Glucose (Fingerstick) 137 mg/dL (70-99) 148 mg/dL (70-99) 149 mg/dL (70-99) 119 mg/dL (70-99) Medications Current Medications Fentanyl Citrate (Fentanyl 2ml Vial) 50 mcg 1X ONCE IVP Last administered on 11/02/19at 12:00; Start 11/02/19 at 11:45; Stop 11/02/19 at 11:46; Status DC Sodium Chloride 500 ml @ 500 mls/hr 1X ONCE IV Last administered on 11/02/19at 13:14; Start 11/02/19 at 13:15; Stop 11/02/19 at 14:14; Status DC Acetaminophen/ Hydrocodone Bitart (Lortab 5/325) 1 tab 1X ONCE PO Last administered on 11/02/19at 15:16; Start 11/02/19 at 15:15; Stop 11/02/19 at 15:16; Status DC Amitriptyline HCl (Elavil) 60 mg HS PO Last administered on 11/07/19 20:49; Start 11/02/19 at 21:00 Clonidine HCl (Catapres Tts-3) 1 patch WEEKLY TD ; Start 11/03/19 at 09:00; Stop 11/08/19 at 01:01; Status DC Diclofenac Sodium (Voltaren) 1 becca QID TP Last administered on 11/08/19 08:28; Start 11/02/19 at 18:00 Labetalol HCl (Trandate) 200 mg BID PO Last administered on 11/08/19 08:27; Start 11/02/19 at 21:00 Lactobacillus Rhamnosus (Culturelle) 1 cap BID PO Last administered on 11/08/19 08:27; Start 11/02/19 at 21:00 Lidocaine (Lidoderm) 1 patch HS TD Last administered on 11/07/19at 20:52; Start 11/02/19 at 21:00 Pantoprazole Sodium (Protonix) 40 mg DAILYAC PO Last administered on 11/08/19at 08:26; Start 11/03/19 at 07:30 Non-Formulary Medication (Albuterol Sulfate (Proair Respiclick)) 2 puff PRN Q4- 6HRS PRN IH shortness of breath; Start 11/02/19 at 17:00; Status UNV Misoprostol (Cytotec 200mcg Tab) 200 mcg BID PO Last administered on 11/08/19 08:26; Start 11/02/19 at 21:00 Glimepiride (Amaryl) 4 mg BID PO Last administered on 11/08/19 08:28; Start 11/02/19 at 21:00 Atorvastatin Calcium (Lipitor) 10 mg QHS PO Last administered on 11/07/19 20:50; Start 11/02/19 at 21:00 Pregabalin (Lyrica) 150 mg BID PO Last administered on 11/08/19 08:27; Start 11/02/19 at 21:00 Prochlorperazine Maleate (Compazine) 10 mg PRN Q8HRS PRN PO NAUSEA/VOMITING Last administered on 11/05/19 04:22; Start 11/02/19 at 17:15 Miscellaneous (Lidoderm Patch Removal) 1 ea DAILY MC Last administered on 11/06/19 09:00; Start 11/03/19 at 09:00 Diclofenac Sodium (Voltaren) 75 mg BID PO Last administered on 11/08/19 08:27; Start 11/02/19 at 21:00 Albuterol Sulfate (Ventolin Neb Soln) 2.5 mg PRN Q4HRS PRN NEB SHORTNESS OF BREATH Last administered on 11/07/19 11:01; Start 11/02/19 at 17:15 Oxycodone/ Acetaminophen (Percocet 7.5/ 325) 1 tab PRN Q4HRS PRN PO PAIN MILD TO MOD; Start 11/02/19 at 17:45 Oxycodone/ Acetaminophen (Percocet 7.5/ 325) 2 tab PRN Q4HRS PRN PO PAIN SEVERE Last administered on 11/08/19 04:30; Start 11/02/19 at 17:45 Morphine Sulfate (Morphine Sulfate) 2 mg PRN Q2HR PRN IV PAIN Last administered on 11/07/19 11:33; Start 11/02/19 at 21:30 Methylprednisolone Acetate (DEPO-Medrol 40MG VIAL) 40 mg 1X ONCE IM Last administered on 11/04/19 13:45; Start 11/04/19 at 13:30; Stop 11/04/19 at 13:31; Status DC Methylprednisolone Acetate (DEPO-Medrol 40MG VIAL) 40 mg 1X ONCE IM Last administered on 11/04/19 13:45; Start 11/04/19 at 13:30; Stop 11/04/19 at 13:31; Status DC Bupivacaine HCl (Sensorcaine-Mpf 0.25%) 10 ml 1X ONCE IJ Last administered on 11/04/19 13:45; Start 11/04/19 at 13:30; Stop 11/04/19 at 13:31; Status DC Multi-Ingredient Ointment (Hydrocerin Cream) 1 becca PRN Q1HR PRN TP DRY SKIN / SCALING; Start 11/04/19 at 13:30 Linezolid (Zyvox) 600 mg BID PO Last administered on 11/05/19at 08:39; Start 11/04/19 at 21:00; Stop 11/05/19 at 16:10; Status DC Doxycycline Hyclate (Vibra-Tab) 100 mg BID PO Last administered on 11/08/19at 08:27; Start 11/05/19 at 21:00 Clonidine HCl (Catapres Tts-3) 1 patch WEEKLY TD Last administered on 11/07/19at 23:50; Start 11/07/19 at 23:30 Active Scripts Active Lidocaine PATCH (Lidocaine) 1 Each Adh..patch 1 Patch TD HS 30 Days Culturelle (Lactobacillus Rhamnosus Gg) 1 Each Cap.sprink 1 Cap PO BID 30 Days Pantoprazole Sodium (Pantoprazole Sodium) 40 Mg Tablet.dr 40 Mg PO DAILYAC 30 Days Polyethylene Glycol 3350 17 Gm Powd.pack 17 Gm PO PRN BID PRN 30 Days Amlodipine Besylate 10 Mg Tablet 10 Mg PO DAILY 30 Days Hydralazine Hcl 25 Mg Tablet 25 Mg PO BID 30 Days Clonidine Tts-3 (Clonidine) 1 Each Patch.tdwk 1 Patch TD WEEKLY 30 Days Amox Tr-K Clv 875-125 Mg Tab (Amoxicillin/Potassium Clav) 1 Each Tablet 1 Tab PO BID 10 Days Aspirin 81 Mg Tab.chew 81 Mg PO DAILYWBKFT 30 Days Reported Percocet 7.5-325 Mg Tablet (Oxycodone/Acetaminophen) 1 Each Tablet 2 Tab PO PRN Q4HRS PRN Percocet 7.5-325 Mg Tablet (Oxycodone/Acetaminophen) 1 Each Tablet 1 Tab PO PRN Q4HRS PRN Voltaren (Diclofenac Sodium) 100 Gm Gel..gram. 1 Gm TP QID 30 Days apply to affected area(s) Triamcinolone Acetonide 0.1% Cream (Triamcinolone Acetonide) 15 Gm Cream..g. 1 Becca TP TID Tramadol Hcl 100 Mg Tbmp.24hr 1 Tab PO PRN Q6HRS PRN MDD 1 Tablet(s) 30 Days Proair Respiclick (Albuterol Sulfate) 90 Mcg Aer.pow.ba 2 Puff IH PRN Q4-6HRS PRN Lyrica (Pregabalin) 150 Mg Capsule 1 Cap PO BID Emu-Lac Hydrating Cream (Ammonium Lactate/Emu Oil) 120 Ml Cream.ml. 120 Ml TP DAILY Arthrotec 75 Mg-200 Mcg Tab (Diclofenac Sodium/Misoprostol) 1 Each Tab.ir.dr 1 Tab PO BID Amitriptyline Hcl 10 Mg Tablet 60 Mg PO HS Glimepiride 4 Mg Tablet 1 Tab PO BID Compazine (Prochlorperazine Maleate) 10 Mg Tablet 10 Mg PO PRN Q8HRS PRN Pravastatin Sodium 40 Mg Tablet 1 Tab PO QHS Labetalol Hcl 200 Mg Tablet 1 Tab PO BID Vitals/I & O Vital Sign - Last 24 Hours 11/07/19 11/07/19 11/07/19 11/07/19 11:00 11:02 11:33 12:03 Temp 98.0 98.0 Pulse 98 Resp 20 B/P (MAP) 167/98 (121) Pulse Ox 97 95 O2 Delivery Room Air Room Air Room Air Room Air 11/07/19 11/07/19 11/07/19 11/07/19 15:00 19:00 19:30 20:08 Temp 98.6 98.6 98.6 98.6 Pulse 95 105 Resp 20 20 B/P (MAP) 155/95 (115) 151/92 (111) Pulse Ox 95 97 O2 Delivery Room Air Room Air Room Air Room Air 11/07/19 11/07/19 11/07/19 11/08/19 20:51 21:09 22:59 00:20 Temp 99.0 99.0 Pulse 105 98 Resp 20 B/P (MAP) 151/92 142/90 (107) Pulse Ox 95 O2 Delivery Room Air Room Air Room Air 11/08/19 11/08/19 11/08/19 11/08/19 01:20 03:00 04:30 05:40 Temp 98.4 98.4 Pulse 89 Resp 20 B/P (MAP) 122/64 (83) Pulse Ox 93 O2 Delivery Room Air Room Air Room Air Room Air 11/08/19 11/08/19 07:15 08:27 Temp 98.1 98.1 Pulse 85 85 Resp 18 B/P (MAP) 136/70 (92) 136/70 Pulse Ox 96 O2 Delivery Room Air Intake and Output 11/07/19 11/07/19 11/08/19 15:00 23:00 07:00 Intake Total 300 ml Output Total 300 ml 250 ml Balance -300 ml 50 ml Justicifation of Admission Dx: Justifications for Admission: Justification of Admission Dx: N/A DOC PEDRO MD Nov 08, 2019 08:55
[2019-11-08 11:00] VITALS: BP 148/83
--- NOTE | 2019-11-08 11:09 | NUR ---
SW following. Discussed with RN. NATASHA met with pt again after consult for pt now agreeable to SNU - pt declined and stated she wants to go home with [facility]. NATASHA notified Dr. Levine, awaiting discharge paperwork. NATASHA will continue to follow.
[2019-11-08] MEDS ORDERED: DOXY100T PO (14:39)
--- NOTE | 2019-11-08 14:41 | SNU/HH DC ---
DISCHARGE WITH HOME HEALTH DISCHARGE INFORMATION: Discharge Date: Nov 08, 2019 Final Diagnosis: Problems Medical Problems: (1) Leg pain, bilateral Status: Acute (2) Peripheral edema Status: Acute Condition on Discharge: Stable CODE STATUS: Code Status: Full HOME HEALTH: Face to Face: I certify this patient is under my care and that I, or a nurse practitioner or physician's assistant store director working with me, had a face to face encounter that meets the physician face to face encounter requirements with this patient on 11/08/2019. Medical Complications: HTN Usp For: Medication Management RN For Eval/Treatment: Yes Physical Therapy For: Evalulation/Treatment Occupational Therapy For: Evaluation/Treatment Pt Meets Homebound Status: Fatigue w/ amb., Limited distance walking POST DISCHARGE ORDERS: Activity Instructions for Disc: Activity as tolerated Weight Bearing Status after Di: As tolerated DIET AFTER DISCHARGE: ADA Wound/Incision Care: No wound care needed CHECKS AFTER DISCHARGE: Checks after discharge: Check blood press - daily, Check blood sugar, ac/hs FOLLOW-UP: Follow up with: Follow up with Dr. Mckeon (zinc plater) on December 08 at 1:45 pm. Follow Up With: Your Primary Care Provider in one week. TREATMENT/EQUIPMENT ORDERS: Adaptive Equipment Issued: Front wheeled walker, Walker Discharge Respiratory Equipmen: Oxygen CERTIFICATION STATEMENT: Certification Statement: Certification Statement: Based on the above finding, I certify that this patient is confined to the home and needs intermittent fci care, physical therapy and/or speech therapy, or continues to need occupational therapy.~ This patient is under my care, and I have initiated the establishment of the plan of care.~ This patient will be followed by myself or a community physician who will periodically review the plan of care. Home Meds Active Scripts Doxycycline Hyclate (DOXYCYCLINE HYCLATE) 100 Mg Tablet, 100 MG PO BID for Cellulitis for 10 Days, #20 TAB Prov:LALO SMITH MD 11/08/19 Lidocaine (Lidocaine PATCH ) 1 Each Adh..patch, 1 PATCH TD HS for PAIN for 30 Days, #30 PATCH Prov:BLAYNE MILES MD 03/23/19 Lactobacillus Rhamnosus Gg (CULTURELLE) 1 Each Cap.sprink, 1 CAP PO BID for SUPPLEMENT for 30 Days, #60 CAP Prov:BLAYNE MILES MD 03/23/19 Pantoprazole Sodium (PANTOPRAZOLE SODIUM ) 40 Mg Tablet.dr, 40 MG PO DAILYAC for GERD for 30 Days, #30 TAB.SR Prov:BLAYNE MILES MD 03/23/19 Polyethylene Glycol 3350 (POLYETHYLENE GLYCOL 3350) 17 Gm Powd.pack, 17 GM PO HI N BID PRN for CONSTIPATION 1ST CHOICE for 30 Days, #30 PKT Prov:BLAYNE MILES MD 03/23/19 Amlodipine Besylate (AMLODIPINE BESYLATE) 10 Mg Tablet, 10 MG PO DAILY for BLOOD PRESSURE for 30 Days, #30 TAB Prov:BLAYNE MILES MD 03/23/19 Clonidine (CLONIDINE TTS-3 ) 1 Each Patch.tdwk, 1 PATCH TD WEEKLY for BLOOD PRESSURE for 30 Days, #4 PATCH Prov:BLAYNE MILES MD 03/23/19 Aspirin (ASPIRIN) 81 Mg Tab.chew, 81 MG PO DAILYWBKFT for cva for 30 Days, #30 TAB.CHEW Prov:BLAYNE MILES MD 02/14/19 Reported Medications Oxycodone/Apap 7.5-325 (PERCOCET 7.5-325 MG TABLET ) 1 Each Tablet, 1 TAB PO PRN Q4HRS PRN for PAIN, TAB 0 Refills 11/02/19 Diclofenac Sodium (VOLTAREN) 100 Gm Gel..gram., 1 GM TP QID for pain for 30 Days, #1 EACH 0 Refills apply to affected area(s) 03/17/19 Triamcinolone Acetonide (TRIAMCINOLONE ACETONIDE 0.1% CREAM) 15 Gm Cream..g., 1 ESTRELLA TP TID for unknown, TUBE 03/17/19 Albuterol Sulfate (Proair Respiclick) 90 Mcg Aer.pow.ba, 2 PUFF IH PRN Q4-6HRS PRN for shortness of breath, #1 INHALER 0 Refills 03/17/19 Pregabalin (LYRICA) 150 Mg Capsule, 1 CAP PO BID for nerve/muscle pain, #60 CAP 5 Refills 03/17/19 Ammonium Lactate/Emu Oil (EMU-LAC HYDRATING CREAM) 120 Ml Cream.ml., 120 ML TP DAILY for unknown, EACH 03/17/19 Diclofenac Sodium/Misoprostol (ARTHROTEC 75 MG-200 MCG TAB) 1 Each Tab.ir., 1 TAB PO BID for for pain, #60 TAB 3 Refills 03/17/19 Amitriptyline Hcl (AMITRIPTYLINE HCL) 10 Mg Tablet, 60 MG PO HS for nerve pain/antidepressent, TAB 03/17/19 Glimepiride (GLIMEPIRIDE) 4 Mg Tablet, 1 TAB PO BID for does not know, #30 TAB 5 Refills 06/13/17 Prochlorperazine Maleate (Compazine) 10 Mg Tablet, 10 MG PO PRN Q8HRS PRN for NAUSEA, TAB 06/13/17 Pravastatin Sodium (PRAVASTATIN SODIUM) 40 Mg Tablet, 1 TAB PO QHS for cholesterol, #90 TAB 1 Refill 06/13/17 Labetalol Hcl (LABETALOL HCL) 200 Mg Tablet, 1 TAB PO BID for htn, #60 TAB 5 Refills 06/13/17 Discontinued Reported Medications Oxycodone/Apap 7.5-325 (PERCOCET 7.5-325 MG TABLET ) 1 Each Tablet, 2 TAB PO PRN Q4HRS PRN for PAIN, TAB 0 Refills 11/02/19 Tramadol Hcl (TRAMADOL HCL) 100 Mg Tbmp.24hr, 1 TAB PO PRN Q6HRS PRN for pain MDD 1 Tablet(s) for 30 Days, #30 TAB 0 Refills 03/17/19 Discontinued Scripts Hydralazine Hcl (HYDRALAZINE HCL) 25 Mg Tablet, 25 MG PO BID for BLOOD PRESSURE for 30 Days, #60 TAB Prov:BLAYNE MILES MD 03/23/19 Amoxicillin/Potassium Clav (AMOX TR-K CLV 875-125 MG TAB) 1 Each Tablet, 1 TAB PO BID for COUGH/ COPD for 10 Days, #20 TAB Prov:BLAYNE MILES MD 03/23/19 Hydrocodone/Apap 5-325 (NORCO 5-325 TABLET) 1 Each Tablet, 1 TAB PO PRN Q6HRS PRN for PAIN, #15 TAB 0 Refills Prov:VASU PAVON DO 11/02/19 LALO SMITH MD Nov 08, 2019 14:41
--- NOTE | 2019-11-08 15:03 | NUR ---
Discharge instruction and belongings reviewed with patient, verbalized understanding. Patient will be escorted out via wheelchair by Alda ALY
--- NOTE | 2019-11-09 14:51 | PDOC3 ---
Discharge Summary Visit Information Date of Admission: Nov 02, 2019 Date of Discharge: Nov 08, 2019 Admitting Diagnosis: Bilateral leg cellulitis Final Diagnosis Problems Medical Problems: (1) Leg pain, bilateral Status: Acute (2) Peripheral edema Status: Acute Brief Hospital Course Allergies Allergies Coded Allergies Type Severity Reaction Last Updated Verified No Known Drug Allergies 11/04/19 No Vital Signs Vital Signs Date Time Temp Pulse Resp B/P (MAP) Pulse Ox O2 Delivery O2 Flow Rate FiO2 11/08/19 14:25 16 Room Air 11/08/19 11:00 98.0 81 148/83 (104) 97 98.0 Lab Results Laboratory Tests Test 11/07/19 17:38 11/07/19 20:34 11/08/19 07:35 11/08/19 12:01 Glucose (Fingerstick) 148 mg/dL (70-99) 149 mg/dL (70-99) 119 mg/dL (70-99) 153 mg/dL (70-99) Brief Hospital Course Ms Massey is a 74 yo F w/ PMHx chronic diastolic heart failure, morbid obesity, venous insufficiency, transient ischemic attack, peripheral neuropathy, hypertension, GERD, degenerative joint disease, diabetes mellitus type 2, c hronic kidney disease presented with complaints of increased swelling and pain in lower extremities bilaterally associated with difficulty walking. She had developed blisters on her right leg that have since ruptured. A recent venous Doppler ultrasound showed no evidence of DVT. The patient denied fevers, chills, sweats or body aches. Seen by ID, PMR, Cardiology in consultation. Initially on IV antibiotics, changed to PO Had poor mobility, PT recommended SNF, she requests home with home health. 11/06: still in pain, poorly mobile, t o skilled in AM, COVID test negative Today patient getting around a bit better, requests to go home. Changed to PO zyvox. No CP or SOB. Problem list: Edema with venous insufficiency and obesity History of heart failure CHF Asthma Depression GERD Coronary artery disease Hypertension TIAs Previous tobacco abuse. Venous stasis ulcer of right lower extremity associated with mild cellulitic changes. Chronic edema lower extremities bilaterally. Degenerative joint disease of knees, status post steroid injection bilaterally, 11/04/2019. Morbid obesity. Chronic kidney disease. Diabetes with neuropathy. Greater than 30 minutes spent on d/c home to assisted living [facility] with home health following. Discharge Information Condition at Discharge: Improved Follow Up: Weeks (1) Disposition/Orders: D/C to Home w/ HH Scheduled Amitriptyline Hcl (Amitriptyline Hcl) 10 Mg Tablet, 60 MG PO HS for nerve pain/antidepressent, (Reported) Entered as Reported by: EMMA VERAS on 03/17/191748 Last Action: Continued on 11/02/191699 by NICOLAS STEEL Amlodipine Besylate (Amlodipine Besylate) 10 Mg Tablet, 10 MG PO DAILY for BLOOD PRESSURE for 30 Days, #30 Prescribed by: BLAYNE MILES MD on 03/23/191328 Ammonium Lactate/Emu Oil (Emu-Lac Hydrating Cream) 120 Ml Cream.ml., 120 ML TP DAILY for unknown, (Reported) Entered as Reported by: EMMA VERAS on 03/17/191748 Aspirin (Aspirin) 81 Mg Tab.chew, 81 MG PO DAILYWBKFT for cva for 30 Days, #30 Prescribed by: BLAYNE MILES MD on 02/14/19 1111 Clonidine (Clonidine Tts-3 ) 1 Each Patch.tdwk, 1 PATCH TD WEEKLY for BLOOD PRESSURE for 30 Days, #4 Prescribed by: BLAYEN MILES MD on 03/23/191328 Last Action: Continued on 11/02/191699 by NICOLAS STEEL Diclofenac Sodium (Voltaren) 100 Gm Gel..gram., 1 GM TP QID for pain for 30 Days, #1 Ref 0 (Reported) apply to affected area(s) Entered as Reported by: EMMA VERAS on 03/17/191748 Last Action: Continued on 11/02/191699 by NICOLAS STEEL Diclofenac Sodium/Misoprostol (Arthrotec 75 Mg-200 Mcg Tab) 1 Each Tab.ir.dr, 1 TAB PO BID for for pain, #60 Ref 3 (Reported) Entered as Reported by: EMMA VERAS on 03/17/191748 Last Action: Converted on 11/02/191699 by NICOLAS STEEL Doxycycline Hyclate (Doxycycline Hyclate) 100 Mg Tablet, 100 MG PO BID for Cellulitis for 10 Days, #20 Prescribed by: LALO SMITH MD on 7/6/20 1439 Glimepiride (Glimepiride) 4 Mg Tablet, 1 TAB PO BID for does not know, #30 Ref 5 (Reported) Entered as Reported by: HELENA ROGERS on 06/13/17957 Last Action: Converted on 11/02/191699 by NICOLAS STEEL Labetalol Hcl (Labetalol Hcl) 200 Mg Tablet, 1 TAB PO BID for htn, #60 Ref 5 (Reported) Entered as Reported by: HELENA ROGERS on 06/13/17957 Last Action: Continued on 11/02/191699 by NICOLAS STEEL Lactobacillus Rhamnosus Gg (Culturelle) 1 Each Cap.sprink, 1 CAP PO BID for SUPPLEMENT for 30 Days, #60 Prescribed by: BLAYNE MILES MD on 03/23/191328 Last Action: Continued on 11/02/191699 by NICOLAS STEEL Lidocaine (Lidocaine PATCH ) 1 Each Adh..patch, 1 PATCH TD HS for PAIN for 30 Days, #30 Prescribed by: BLAYNE MILES MD on 03/23/191328 Last Action: Continued on 11/02/191699 by NICOLAS STEEL Pantoprazole Sodium (Pantoprazole Sodium ) 40 Mg Tablet.dr, 40 MG PO DAILYAC for GERD for 30 Days, #30 Prescribed by: BLAYNE MILES MD on 03/23/191328 Last Action: Continued on 11/02/191699 by NICOLAS STEEL Pravastatin Sodium (Pravastatin Sodium) 40 Mg Tablet, 1 TAB PO QHS for cholesterol, #90 Ref 1 (Reported) Entered as Reported by: HELENA ROGERS on 06/13/17957 Last Action: Converted on 11/02/191699 by NICOLAS STEEL Pregabalin (Lyrica) 150 Mg Capsule, 1 CAP PO BID for nerve/muscle pain, #60 Ref 5 (Reported) Entered as Reported by: EMMA VERAS on 03/17/191748 Last Action: Converted on 11/02/191699 by NICOLAS STEEL Triamcinolone Acetonide (Triamcinolone Acetonide 0.1% Cream) 15 Gm Cream..g., 1 ESTRELLA TP TID for unknown, (Reported) Entered as Reported by: EMMA VERAS on 03/17/191748 Scheduled PRN Albuterol Sulfate (Proair Respiclick) 90 Mcg Aer.pow.ba, 2 PUFF IH PRN Q4-6HRS PRN for shortness of breath, #1 Ref 0 (Reported) Entered as Reported by: EMMAZENA VERAS on 03/17/191748 Last Action: Converted on 11/02/191699 by NICOLAS STEEL Oxycodone/Apap 7.5-325 (Percocet 7.5-325 Mg Tablet ) 1 Each Tablet, 1 TAB PO PRN Q4HRS PRN for PAIN, Ref 0 (Reported) Entered as Reported by: NICOLAS STEEL on 11/02/191699 Last Action: Continued on 11/02/191731 by NICOLAS STEEL Polyethylene Glycol 3350 (Polyethylene Glycol 3350) 17 Gm Powd.pack, 17 GM PO PRN BID PRN for CONSTIPATION 1ST CHOICE for 30 Days, #30 Prescribed by: BLAYNE MILES MD on 03/23/19 1329 Prochlorperazine Maleate (Compazine) 10 Mg Tablet, 10 MG PO PRN Q8HRS PRN for NAUSEA, (Reported) Entered as Reported by: HELENA ROGERS on 06/13/17 0958 Last Action: Converted on 11/02/191699 by NICOLAS STEEL Discontinued Medications Amoxicillin/Potassium Clav (Amox Tr-K Clv 875-125 Mg Tab) 1 Each Tablet, 1 TAB PO BID for COUGH/ COPD for 10 Days, #20 Prescribed by: BLAYNE MILES MD on 03/23/19 1329 Hydralazine Hcl (Hydralazine Hcl) 25 Mg Tablet, 25 MG PO BID for BLOOD PRESSURE for 30 Days, #60 Prescribed by: BLAYNE MILES MD on 03/23/19 1329 Hydrocodone/Apap 5-325 (Hudson 5-325 Tablet) 1 Each Tablet, 1 TAB PO PRN Q6HRS PRN for PAIN, #15 Ref 0 Prescribed by: VASU PAVON D.O. on 11/02/19 1357 Oxycodone/Apap 7.5-325 (Percocet 7.5-325 Mg Tablet ) 1 Each Tablet, 2 TAB PO PRN Q4HRS PRN for PAIN, Ref 0 (Reported) Entered as Reported by: NICOLAS STEEL on 11/02/19 1700 Last Action: Continued on 11/02/191731 by NICOLAS STEEL Tramadol Hcl (Tramadol Hcl) 100 Mg Tbmp.24hr, 1 TAB PO PRN Q6HRS PRN for pain MDD 1 Tablet(s) for 30 Days, #30 Ref 0 (Reported) Entered as Reported by: EMMA VERAS on 03/17/19 1749 Justicifation of Admission Dx: Justifications for Admission: Justification of Admission Dx: N/A LALO SMITH MD Nov 09, 2019 14:51
== END 2019-11-08 15:36 | disposition home health service (06) | DRG 603 ==
LOC: ER 09:01 → 4 NORTH 14:45
PROVIDERS: ADMIT Internal Medicine; ATTEND Internal Medicine
DX: L03.115 Cellulitis of right lower limb (principal); N17.9 Acute kidney failure, unspecified; L97.919 Non-pressure chronic ulcer of unspecified part of right lower leg with unspecified severity; I13.0 Hypertensive heart and chronic kidney disease with heart failure and stage 1 through stage 4 chronic kidney disease, or unspecified chronic kidney disease; I50.42 Chronic combined systolic (congestive) and diastolic (congestive) heart failure; Z68.41 Body mass index [BMI] 40.0-44.9, adult; E11.22 Type 2 diabetes mellitus with diabetic chronic kidney disease; E11.42 Type 2 diabetes mellitus with diabetic polyneuropathy; E66.01 Morbid (severe) obesity due to excess calories; F32.9 Major depressive disorder, single episode, unspecified; G89.29 Other chronic pain; I25.10 Atherosclerotic heart disease of native coronary artery without angina pectoris; I77.810 Thoracic aortic ectasia; I83.019 Varicose veins of right lower extremity with ulcer of unspecified site; J45.909 Unspecified asthma, uncomplicated; I87.2 Venous insufficiency (chronic) (peripheral); K21.9 Gastro-esophageal reflux disease without esophagitis; K59.00 Constipation, unspecified; L03.116 Cellulitis of left lower limb; M17.0 Bilateral primary osteoarthritis of knee; M51.36 Other intervertebral disc degeneration, lumbar region; N18.9 Chronic kidney disease, unspecified; S80.821A Blister (nonthermal), right lower leg, initial encounter; Z20.828 Contact with and (suspected) exposure to other viral communicable diseases; Z82.49 Family history of ischemic heart disease and other diseases of the circulatory system; Z86.73 Personal history of transient ischemic attack (TIA), and cerebral infarction without residual deficits; Z87.891 Personal history of nicotine dependence; Z88.1 Allergy status to other antibiotic agents; Z90.710 Acquired absence of both cervix and uterus; Z88.8 Allergy status to other drugs, medicaments and biological substances
CPT/HCPCS: 36415; 71045; 80048; 80053; 82962; 83735; 83880; 84443; 84484; 85025; 85610; 85730; 93005; 93306; 94640; 94760; 96361; 96374; 99285; J1030; J2270; J3010; J3490; J7040; 97110-GO; 97110-GP; 97530-GO; 97530-GP; 97535-GO; G0378; J7613; Q0164; U0003-CS

== ENCOUNTER 2019-12-25 12:03 | Emergency (ER) | payer OTHER, MEDICAID ==
[~2019-12-25] VITALS: Ht 175.3 cm; Wt 125.9 kg
[~2019-12-25 12:03] MED LIST changes: +DOXY100T PO; +HYDR-3164 PO
[2019-12-25] MEDS ORDERED: OXYC1TAB19 PO (12:19)
--- NOTE | 2019-12-25 12:20 | PHYS DOC ---
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 She states that she called the physician yesterday and left a message but no one has returned her call. She states that she sees a Dr. Dawit Turk every 3 months and that is who refills her medication. She is prescribed to take 1 oxycodone 7.5/325 mg every 6 hours. Patient states she is here today because she is needing a refill and she is aching very badly and has no pain medication to take. She states all of her joints are aching. Patient denies chest pain, shortness of air, fever, cough, abdominal pain, nausea, vomiting, diarrhea, tremors, headache, dizziness, vision changes, focal weakness. No radiation of pain. She rates her pain 10 out of 10. Patient is able to get up off the ambulance cot with help and she ambulated over to the chair in the exam room. Patient has a history of asthma, hysterectomy, tonsillectomy, GERD, heart disease, hypertension, CHF, diabetes, neuropathy, arthritis, cholecystectomy. 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 Medication refill. [] Eyes: Denies change in visual acuity. [] HENT: Denies nasal congestion or sore throat. [] Respiratory: Denies cough or shortness of breath. [] Cardiovascular: Denies chest pain or edema. [] GI: Denies abdominal pain, nausea, vomiting, bloody stools or diarrhea. [] : Denies dysuria. [] Musculoskeletal: Denies back pain. All over joint pain from arthritis and out of pain medication.. [] Integument: Denies rash. [] Neurologic: Denies headache, focal weakness or sensory changes. [] Endocrine: Denies polyuria or polydipsia. [] Lymphatic: Denies swollen glands. [] Psychiatric: Denies depression or anxiety. [] (RUSS AGUAYO APRN) Heart Score: Risk Factors: Risk Factors: DM, Current or recent (<one month) smoker, HTN, HLP, family history of CAD, obesity. Risk Scores: Score 0 - 3: 2.5% MACE over next 6 weeks - Discharge Home Score 4 - 6: 20.3% MACE over next 6 weeks - Admit for Clinical Observation Score 7 - 10: 72.7% MACE over next 6 weeks - Early Invasive Strategies (RUSS AGUAYO APRN) Allergies: Allergies: Allergies Coded Allergies Type Severity Reaction Last Updated Verified No Known Drug Allergies 11/04/19 No (RUSS AGUAYO APRN) Physical Exam: PE: Constitutional: Well developed, well nourished, no acute distress, non-toxic appearance. [] HENT: Normocephalic, atraumatic, bilateral external ears normal, oropharynx moist, no oral exudates, nose normal. [] Eyes: PERRLA, EOMI, conjunctiva normal, no discharge. [] Neck: Normal range of motion, no tenderness, supple, no stridor. [] Cardiovascular:Heart rate regular rhythm, no murmur [] Lungs & Thorax: Bilateral breath sounds clear to auscultation [] Abdomen: Bowel sounds normal, soft, no tenderness, no masses, no pulsatile masses. [] Skin: Warm, dry, no erythema, no rash. [] Back: No tenderness, no CVA tenderness. [] Extremities: No tenderness, no cyanosis, no clubbing, All joint ROM limited due to pain, no edema. [] Neurologic: Alert and oriented X 3, normal motor function, normal sensory function, no focal deficits noted. [] Psychologic: Affect normal, judgement normal, mood normal. [] (RUSS AGUAYO APRN) EKG: EKG: [] (RUSS AGUAYO APRN) Radiology/Procedures: Radiology/Procedures: [] (RUSS AGUAYO APRN) Course & Med Decision Making: Course & Med Decision Making Pertinent Labs and Imaging studies reviewed. (See chart for details) See HPI. Patient is given Percocet in the ED. I will give her a prescription for Percocet and she is to follow-up with her primary care physician soon as possible. Alert and oriented x4. Speaks in full clear sentences. Lungs are clear to auscultation all lobes. She is ambulatory but is slow due to pain in her joints. No redness or swelling of the joints. No joint tenderness. It is painful when she goes to move and extend her legs and goes from sitting to standing in her joints. [] (RUSS AGUAYO APRN) Course & Med Decision Making I have reviewed the PA/SMART GRID ENGINEER's note and Plan of Care. I was available for cons ultation as needed during the patient's visit in the emergency department. I agree with the clinical impression, plans and disposition. (VALERIANO RETANA MD) Dragon Disclaimer: Dragon Disclaimer: This electronic medical record was generated, in whole or in part, using a voice recognition dictation system. (RUSS AGUAYO APRN) Departure Departure Impression: Primary Impression: Chronic pain Qualified Codes: G89.29 - Other chronic pain Additional Impression: Medication refill Disposition: HOME, SELF-CARE Condition: STABLE Referrals: TOAN TURK (PCP) Patient Instructions: Chronic Pain Management, Medication Refill, Emergency Department Additional Instructions: Follow up with primary care physician as soon as possible. Take the medication as it is prescribed. Scripts Oxycodone/Apap 7.5-325 (PERCOCET 7.5-325 MG TABLET ) 1 Each Tablet 1 TAB PO PRN Q6HRS PRN for PAIN, #12 TAB 0 Refills Prov: RUSS AGUAYO APRN 12/25/19 Justicifation of Admission Dx: Justifications for Admission: Justification of Admission Dx: N/A (RUSS AGUAYO APRN) Justification of Admission Dx: N/A (VALERIANO RETANA MD) RUSS AGUAYO APRN Dec 25, 2019 12:19 VALERIANO RETANA MD Dec 25, 2019 12:23
[2019-12-25] MEDS ORDERED: oxyCODONE/APAP 7.5/325 1 TAB TABLET PO ONE (12:45)
[2019-12-25 13:00] VITALS: BP 141/99
== END 2019-12-25 13:30 | disposition home or self-care (01) ==
LOC: ER 12:03
DX: G89.29 Other chronic pain (principal); M19.90 Unspecified osteoarthritis, unspecified site; J45.909 Unspecified asthma, uncomplicated; I11.9 Hypertensive heart disease without heart failure; I50.9 Heart failure, unspecified; F32.9 Major depressive disorder, single episode, unspecified; K21.9 Gastro-esophageal reflux disease without esophagitis; I25.2 Old myocardial infarction; E11.9 Type 2 diabetes mellitus without complications; Z90.710 Acquired absence of both cervix and uterus; Z90.49 Acquired absence of other specified parts of digestive tract; Z87.891 Personal history of nicotine dependence; Z76.0 Encounter for issue of repeat prescription
CPT/HCPCS: 99284

== ENCOUNTER 2021-01-18 21:31 | Emergency (ER) | payer OTHER, MEDICAID ==
[~2021-01-18] VITALS: Ht 175.3 cm; Wt 126.0 kg
[~2021-01-18 21:31] MED LIST changes: +AMLO-186 PO; +AMLO-187 PO; -AMLO10TA8 PO; -AMLO5TAB10 PO; -POLY17PO28 PO; +POLY17PO52 PO
--- NOTE | 2021-01-18 21:55 | PHYS DOC ---
Past Medical History Past Medical History: Arthritis, Asthma, CHF, Depression, Diabetes-Type II, GERD, Heart Disease, Hypertension, TIA, Other Additional Past Medical Histor: NEUROPATHY Past Surgical History: Cholecystectomy, Hysterectomy, Tonsillectomy Smoking Status: Former Smoker Alcohol Use: None Drug Use: None General Adult EDM: Chief Complaint: MECHANICAL FALL HPI: HPI: Patient is a 75 year old female presents with a chief complaint of left and right foot pain and left hip pain. Patient states this a.m. when she was transferred from her wheelchair to her scooter she fell. On exam I do not see any deformities of the left lower extremity the left lower extremity is not shortened or rotated no deformities of bilateral feet. Patient does have swelling over the 5th, 4th, 3rd, and 2nd distal toes. Review of Systems: Review of Systems: Constitutional: Denies fever or chills. [] Eyes: Denies change in visual acuity. [] HENT: Denies nasal congestion or sore throat. [] Respiratory: Denies cough or shortness of breath. [] Cardiovascular: Denies chest pain or edema. [] GI: Denies abdominal pain, nausea, vomiting, bloody stools or diarrhea. [] : Denies dysuria. [] Musculoskeletal: positive foot pain, positive hip pain Integument: Denies rash. [] Neurologic: Denies headache, focal weakness or sensory changes. [] Endocrine: Denies polyuria or polydipsia. [] Lymphatic: Denies swollen glands. [] Psychiatric: Denies depression or anxiety. [] Heart Score: C/O Chest Pain: N/A Risk Factors: Risk Factors: DM, Current or recent (<one month) smoker, HTN, HLP, family history of CAD, obesity. Risk Scores: Score 0 - 3: 2.5% MACE over next 6 weeks - Discharge Home Score 4 - 6: 20.3% MACE over next 6 weeks - Admit for Clinical Observation Score 7 - 10: 72.7% MACE over next 6 weeks - Early Invasive Strategies Allergies: Allergies: Allergies Coded Allergies Type Severity Reaction Last Updated Verified No Known Drug Allergies 11/04/19 No Physical Exam: PE: General: alert, no acute distress. Skin: warm, dry and intact, no erythema, no rash. HENT: bilateral external ears normal, oropharynx moist, nose normal. Head:: Normocephalic, atraumatic. Neck: Trachea midline. Eyes: EOMI, Normal conjunctiva, No drainage CARDIOVASCULAR: Regular rate and rhythm RESPIRATORY: No respiratory distress Back: Full range of motion. MUSCULOSKELETAL: Full range of motion of bilateral upper and lower extremities. Swelling along the proximal toes of the left foot primarily second third fourth fifth digits do not observe any deformities of bilateral lower extremities. GASTROINTESTINAL: Abdomen soft without rebound or guarding. NEUROLOGICAL: Alert and noted to person, place and time. No neurological deficits observed Psychiatric: Cooperative. Normal judgment EKG: EKG: [] Radiology/Procedures: Radiology/Procedures: [] Impression: Left foot: The alignment of the tarsal bones grossly appears unremarkable. Moderate degenerative changes identified in the tarsometatarsal joints, tarsophalangeal joints, interphalangeal joints grossly appears unremarkable. There is minimal displaced fracture of the second, third, fourth, fifth metatarsals. Mild soft tissue swelling identified about the metatarsal heads. Left hip joint: Left femoral head is within the acetabulum. Mild joint space loss bilaterally likely degenerative changes. Right foot: Moderate joint space loss tarsometatarsal joints, tarsophalangeal segmental tendons grossly appears unremarkable. Osseous demineralization. Course & Med Decision Making: Course & Med Decision Making Pertinent Labs and Imaging studies reviewed. (See chart for details) [] Acute fractures on x-ray of the left foot. Patient's left foot will be placed in a postoperative shoe. She will be discharged home with pain medications and follow-up to podiatry Viktoria Disclaimer: Viktoria Disclaimer: This electronic medical record was generated, in whole or in part, using a voice recognition dictation system. Departure Departure Impression: Primary Impression: Foot fracture, left Disposition: HOME / SELF CARE / HOMELESS Condition: STABLE Referrals: TOAN REYES (PCP) SUSANNA ADAMS DPM Patient Instructions: Foot Fracture Scripts Hydrocodone/Acetaminophen (Hydrocodone-Acetamin 5-325 mg) 1 Each Tablet 1 EACH PO Q4-6HRS, #20 TAB Prov: DONNY COTO DO 01/18/21 DONNY COTO DO Jan 18, 2021 21:55
[2021-01-18 22:10] VITALS: BP 160/88
--- NOTE | 2021-01-18 22:37 | RAD ---
Examination: 3 views of the left testis frontal view the pelvis, 3 views of the bilateral foot HISTORY: History of bilateral flank pain, hip pain COMPARISON: None available. Findings/ impression: Left foot: The alignment of the tarsal bones grossly appears unremarkable. Moderate degenerative changes identif ied in the tarsometatarsal joints, tarsophalangeal joints, interphalangeal joints grossly appears unr emarkable. There is minimal displaced fracture of the second, third, fourth, fifth metatarsals. Mild soft tissue swelling identified about the metatarsal heads. Left hip joint: Left femoral head is within the acetabulum. Mild joint space loss bilaterally likely degenerative anna nges. Right foot: Moderate joint space loss tarsometatarsal joints, tarsophalangeal segmental tendons grossly appears u nremarkable. Osseous demineralization. Electronically signed by: Jluis Valladares MD (01/18/2021 10:34 PM) [id number]
[2021-01-18] MEDS ORDERED: HYDR-2759 PO (23:04)
[2021-01-18] MEDS ORDERED: HYDROcodone/APAP 5/325MG 1 TAB TABLET PO ONE (23:45)
== END 2021-01-18 23:50 | disposition home or self-care (01) ==
LOC: ER 21:31
DX: S92.322A Displaced fracture of second metatarsal bone, left foot, initial encounter for closed fracture (principal); S92.332A Displaced fracture of third metatarsal bone, left foot, initial encounter for closed fracture; S92.342A Displaced fracture of fourth metatarsal bone, left foot, initial encounter for closed fracture; S92.352A Displaced fracture of fifth metatarsal bone, left foot, initial encounter for closed fracture; M19.90 Unspecified osteoarthritis, unspecified site; J45.909 Unspecified asthma, uncomplicated; I11.0 Hypertensive heart disease with heart failure; I50.9 Heart failure, unspecified; K21.9 Gastro-esophageal reflux disease without esophagitis; E11.40 Type 2 diabetes mellitus with diabetic neuropathy, unspecified; W18.39XA Other fall on same level, initial encounter; Y93.89 Activity, other specified; Y92.89 Other specified places as the place of occurrence of the external cause; Y99.8 Other external cause status
CPT/HCPCS: 73502; 73630; 99284

== ENCOUNTER 2021-01-19 18:49 | Inpatient (IN) | payer OTHER, MEDICAID ==
[~2021-01-19] VITALS: Ht 175.3 cm; Wt 151.5 kg
[~2021-01-19 18:49] MED LIST changes: +HYDR-2759 PO
[2021-01-19] MEDS ORDERED: MORPHINE SULFATE 2 MG/ML INJ. IM ONE (19:15)
--- NOTE | 2021-01-19 22:30 | PHYS DOC ---
Past Medical History Past Medical History: Arthritis, Asthma, CHF, Depression, Diabetes-Type II, GERD, Heart Disease, Hypertension, TIA, Other Additional Past Medical Histor: NEUROPATHY,OSTEROARTHROSIS Past Surgical History: Cholecystectomy, Hysterectomy, Tonsillectomy Smoking Status: Former Smoker Alcohol Use: None Drug Use: None General Pediatric Assessment Chief Complaint Chief Complaint: FOOT INJURY PAIN History of Present Illness History of Present Illness 75-year-old female who is a resident of [facility] presents for ree valuation of left foot pain. Patient was evaluated yesterday after a fall and was found to have metatarsal fractures of the second third fourth and fifth on patient's left lower extremity. Patient was discharged to care facility with oral pain medications and referral to podiatry. Patient states today pain is progressively becoming worse. Patient states pain medication is not controlling her pain. She states she is having difficulty transferring from her wheelchair to her scooter. Review of Systems Review of Systems Review of systems: Constitutional symptoms- No fever, no chills. Eyes- No Discharge, No Visual Loss Respiratory symptoms- No shortness of breath, No wheezing, No Dyspnea on Exertion Cardiovascular Systems; No chest pain, No Palpitations, No syncope Gastrointestinal symptoms: NO abdominal pain, no nausea, no vomiting or diarrhea. Genitourinary symptoms: No dysuria. Musculoskeletal symptoms: No back pain Positive extremity pain. NEUROLOGICAL Symptoms: No headache, no generalized weakness; No focal Weakness Skin: No rash. Current Medications Current Medications Current Medications Medications (Trade) Dose Ordered Sig/Janay Start Time Stop Time Status Last Admin Dose Admin Morphine Sulfate (Morphine Sulfate) 2 mg 1X ONCE 01/19/21 19:15 01/19/21 19:16 DC 01/19/21 19:51 2 MG Allergies Allergies Allergies Coded Allergies Type Severity Reaction Last Updated Verified cephalexin Allergy Unknown UNKNOWN 01/19/21 Yes ciprofloxacin Allergy Unknown UNKNOWN 01/19/21 Yes fluconazole Allergy Unknown UNKNOWN 01/19/21 Yes levofloxacin Allergy Unknown UNKNOWN 01/19/21 Yes tetracycline Allergy Unknown UNKNOWN 01/19/21 Yes Uncoded Allergies Type Severity Reaction Last Updated Verified EGGS Allergy Unknown UNKNOWN 01/19/21 Physical Exam Physical Exam Constitutional: Well developed, well nourished, no acute distress, non-toxic appearance, positive interaction, playful. [] HENT: Normocephalic, atraumatic, bilateral external ears normal, oropharynx moist, no oral exudates, nose normal. [] Eyes: PERRLA, conjunctiva normal, no discharge. [] Neck: Normal range of motion, no tenderness, supple, no stridor. [] Cardiovascular: Normal heart rate, normal rhythm, no murmurs, no rubs, no g allops. [] Thorax and Lungs: Normal breath sounds, no respiratory distress, no wheezing, no chest tenderness, no retractions, no accessory muscle use. [] Abdomen: Bowel sounds normal, soft, no tenderness, no masses [] Skin: Warm, dry, no erythema, no rash. [] Back: No tenderness, no CVA tenderness. [] Extremities: Intact distal pulses, no tenderness, no cyanosis, ROM intact, no edema, no deformities. [] Neurologic: Alert and interactive, normal motor function, normal sensory function, no focal deficits noted. [] Vital Signs Vital Signs Date Time Temp Pulse Resp B/P (MAP) Pulse Ox O2 Delivery O2 Flow Rate FiO2 01/19/21 20:41 18 98 Room Air 01/19/21 20:17 76 161/76 (104) 01/19/21 18:49 98.6 98.6 Radiology/Procedures Radiology/Procedures []Left foot: The alignment of the tarsal bones grossly appears unremarkable. Moderate degenerative changes identified in the tarsometatarsal joints, tarsophalangeal joints, interphalangeal joints grossly appears unremarkable. There is minimal displaced fracture of the second, third, fourth, fifth metatarsals. Mild soft tissue swelling identified about the metatarsal heads. Course & Med Decision Making Course & Med Decision Making Pertinent Labs and Imaging studies reviewed. (See chart for details) [] Patient was treated with morphine for pain with improvement. Patient was admitted to the hospitalist for pain control AND for a podiatry consult. Dragon Disclaimer Dragon Disclaimer This electronic medical record was generated, in whole or in part, using a voice recognition dictation system. Departure Departure Impression: Primary Impression: Metatarsal fracture Additional Impressions: Metatarsal stress fracture of left foot Intractable pain Disposition: ADMITTED INPATIENT Admitting Physician: CUBA Condition: STABLE Referrals: TOAN REYES (PCP) Problem Qualifiers DONNY COTO DO Jan 19, 2021 22:30
[2021-01-19] MEDS ORDERED: ACETAMINOPHEN 325 MG TABLET. PO PRN (23:15)
[2021-01-19] MEDS ORDERED: ONDANSETRON PF 4 MG/2 ML VIAL. IVP PRN (23:15)
--- NOTE | 2021-01-19 23:45 | NUR ---
Patient arrived to unit from ER via bed. IV in left thumb. Wound to right lower leg.
[2021-01-20] VITALS (7 sets, daily range): BP systolic 118–165; BP diastolic 49–82
[2021-01-20] MEDS: MORPHINE SULFATE 2 MG/ML INJ. IVP PRN ×3 (01:19→08:49)
[2021-01-20 04:36] LABS: BASO % 1 % (0-3); EOS # 0.1 x10^3/uL (0.0-0.7); EOS % 2 % (0-3); HEMOGLOBIN 11.6 g/dL (12.0-15.5); LYMPH # 2.3 x10^3/uL (1.0-4.8); LYMPH % 36 % (24-48); MEAN CORPUSCULAR HEMOGLOBIN 32 pg (25-35); MEAN CORPUSCULAR HGB CONC 33 g/dL (31-37); MEAN CORPUSCULAR VOLUME 96 fL (79-100); MONO # 0.7 x10^3/uL (0.0-1.1); MONO % 11 % (0-9); NEUT # 3.2 x10^3/uL (1.8-7.7); NEUT % 50 % (31-73); PLATELET COUNT 211 x10^3/uL (140-400); RED BLOOD COUNT 3.65 x10^6/uL (3.50-5.40); RED CELL DISTRIBUTION WIDTH 13.3 % (11.5-14.5); WHITE BLOOD COUNT 6.4 x10^3/uL (4.0-11.0)
[2021-01-20 04:48] LABS: ALBUMIN/GLOBULIN RATIO 0.8 (1.0-1.7); CALCIUM 9.8 mg/dL (8.5-10.1); CREATININE 0.8 mg/dL (0.6-1.0); GFR 84.4; POTASSIUM 3.7 mmol/L (3.5-5.1); TOTAL BILIRUBIN 0.5 mg/dL (0.2-1.0); TOTAL PROTEIN 6.7 g/dL (6.4-8.2)
[2021-01-20] MEDS ORDERED: POLYETHYLENE GLYCOL 3350 17 GM PACKET. PO PRN (06:30)
--- NOTE | 2021-01-20 06:49 | PDOC1 ---
History and Physical Date of Admission Date of Admission DATE: 01/20/21 TIME: 06:32 Identification/Chief Complaint Chief Complaint Left foot pain Source Source: Chart review, Patient History of Present Illness History of Present Illness Patient is a 75-year-old female with past medical history CHF, DM2, CAD, asthma, TIA, neuropathy, BRITTA, GERD, who presents to the ED presents from [facility] for evaluation of ongoing left foot pain. She initially presented to the ED on 01/18 after a fall and found to have minimally displaced fractures of the second, third, fourth, fifth metatarsals. She was subsequently discharged to her snf facility with pain medications and podiatry referral. She presents again last night for progressively worsening pain, not controlled by her pain medication. She also notes that she been having difficulty transferring from her wheelchair to her scooter. Labs on admission showed hemoglobin 11.6, hematocrit 35.0, albumin 3.0. She was treated with mor phine in the ED. Will admit patient for further medical management. Past Medical History Cardiovascular: HTN Pulmonary: Asthma CENTRAL NERVOUS SYSTEM: Periperal neuropathy, TIA, Other GI: GERD Hepatobiliary: Cholelithiasis Musculoskeletal: low back pain, Osteoarthritis Rheumatologic: Rheumatoid arthritis Infectious disease: No pertinent hx Renal/: Chronic renal insuff, UTI Endocrine: Diabetes Past Surgical History Past Surgical History: Cholecystectomy, Hysterectomy Family History Family History: Heart Disease Social History Smoke: Quit ALCOHOL: none Drugs: None Current Problem List Problem List Problems Medical Problems: (1) Metatarsal fracture Status: Acute (2) Metatarsal stress fracture of left foot Status: Acute Current Medications Current Medications Current Medications Morphine Sulfate (Morphine Sulfate) 2 mg 1X ONCE IM Last administered on 01/19/21at 19:51; Start 01/19/21 at 19:15; Stop 01/19/21 at 19:16; Status DC Ondansetron HCl (Zofran) 4 mg PRN Q8HRS PRN IVP NAUSEA/VOMITING; Start 01/19/21 at 23:15; Stop 01/20/21 at 23:14 Morphine Sulfate (Morphine Sulfate) 2 mg PRN Q2HR PRN IVP PAIN Last administered on 01/20/21at 05:17; Start 01/19/21 at 23:15; Stop 01/20/21 at 23:14 Acetaminophen (Tylenol) 650 mg PRN Q4HRS PRN PO FEVER > 100.3'F; Start 01/19/21 at 23:15; Stop 01/20/21 at 23:14 Active Scripts Active Hydrocodone-Acetamin 5-325 mg (Hydrocodone/Acetaminophen) 1 Each Tablet 1 Each PO Q4-6HRS Percocet 7.5-325 Mg Tablet (Oxycodone/Acetaminophen) 1 Each Tablet 1 Tab PO PRN Q6HRS PRN Doxycycline Hyclate 100 Mg Tablet 100 Mg PO BID 10 Days Lidocaine PATCH (Lidocaine) 1 Each Adh..patch 1 Patch TD HS 30 Days Culturelle (Lactobacillus Rhamnosus Gg) 1 Each Cap.sprink 1 Cap PO BID 30 Days Pantoprazole Sodium (Pantoprazole Sodium) 40 Mg Tablet.dr 40 Mg PO DAILYAC 30 Days Polyethylene Glycol 3350 17 Gm Powd.pack 17 Gm PO PRN BID PRN 30 Days Amlodipine Besylate 10 Mg Tablet 10 Mg PO DAILY 30 Days Clonidine Tts-3 (Clonidine) 1 Each Patch.tdwk 1 Patch TD WEEKLY 30 Days Aspirin 81 Mg Tab.chew 81 Mg PO DAILYWBKFT 30 Days Reported Percocet 7.5-325 Mg Tablet (Oxycodone/Acetaminophen) 1 Each Tablet 1 Tab PO PRN Q4HRS PRN Voltaren (Diclofenac Sodium) 100 Gm Gel..gram. 1 Gm TP QID 30 Days apply to affected area(s) Triamcinolone Acetonide 0.1% Cream (Triamcinolone Acetonide) 15 Gm Cream..g. 1 Becca TP TID Proair Respiclick (Albuterol Sulfate) 90 Mcg Aer.pow.ba 2 Puff IH PRN Q4-6HRS PRN Lyrica (Pregabalin) 150 Mg Capsule 1 Cap PO BID Emu-Lac Hydrating Cream (Ammonium Lactate/Emu Oil) 120 Ml Cream.ml. 120 Ml TP DAILY Arthrotec 75 Mg-200 Mcg Tab (Diclofenac Sodium/Misoprostol) 1 Each Tab.ir.dr 1 Tab PO BID Amitriptyline Hcl 10 Mg Tablet 60 Mg PO HS Glimepiride 4 Mg Tablet 1 Tab PO BID Compazine (Prochlorperazine Maleate) 10 Mg Tablet 10 Mg PO PRN Q8HRS PRN Pravastatin Sodium 40 Mg Tablet 1 Tab PO QHS Labetalol Hcl 200 Mg Tablet 1 Tab PO BID Allergies Allergies: Coded Allergies: egg (Verified Allergy, Intermediate, 01/19/21) cephalexin (Verified Allergy, Unknown, UNKNOWN, 01/19/21) ciprofloxacin (Verified Allergy, Unknown, UNKNOWN, 01/19/21) fluconazole (Verified Allergy, Unknown, UNKNOWN, 01/19/21) levofloxacin (Verified Allergy, Unknown, UNKNOWN, 01/19/21) tetracycline (Verified Allergy, Unknown, UNKNOWN, 01/19/21) ROS Review of System GENERAL: No history of weight change, weakness or fevers. SKIN: No bruising, hair changes or rashes. EYES: No blurred, double or loss of vision. NOSE AND THROAT: No history of nosebleeds, hoarseness or sore throat. HEART: Denies chest pain, denies palpitations. LUNGS: Denies cough, hemoptysis, wheezing or shortness of breath. GASTROINTESTINAL: Denies nausea, vomiting, abdominal pain. GENITOURINARY: Denies dysuria, frequency, urgency, hematuria. NEUROLOGIC: Denies history of numbness, tingling, tremor or weakness. PSYCHIATRIC: Denies anxiety, denies depression. ENDOCRINE: No history of heat or cold intolerance, polyuria or polydipsia. EXTREMITIES: Left foot pain. Denies muscle weakness. Physical Exam Physical Exam General: Alert, Oriented X3, Cooperative, mild distress. Morbidly obese. HEENT: PERRLA, EOMI Lungs: Decreased breath sounds bilaterally, Normal air movement Heart: RRR, no murmurs Cardiovascular: S1, S2 Abdomen: Normal bowel sounds, Soft, No tenderness Extremities: Left shredder tender peat to palpation and slightly more edematous compared to right. No clubbing, No cyanosis Skin: No rashes, No significant lesion Neuro: Normal speech, Normal tone, Sensation intact Psych/Mental Status: Mental status NL, Mood NL Vitals Vitals Vital Signs Date Time Temp Pulse Resp B/P (MAP) Pulse Ox O2 Delivery O2 Flow Rate FiO2 01/20/21 05:49 16 Room Air 01/20/21 05:17 93 01/20/21 03:15 98.4 84 131/53 (79) 98.4 Labs Labs Laboratory Tests Test 01/19/21 04:15 White Blood Count 6.4 x10^3/uL (4.0-11.0) Red Blood Count 3.65 x10^6/uL (3.50-5.40) Hemoglobin 11.6 g/dL (12.0-15.5) Hematocrit 35.0 % (36.0-47.0) Mean Corpuscular Volume 96 fL (79-100) Mean Corpuscular Hemoglobin 32 pg (25-35) Mean Corpuscular Hemoglobin Concent 33 g/dL (31-37) Red Cell Distribution Width 13.3 % (11.5-14.5) Platelet Count 211 x10^3/uL (140-400) Neutrophils (%) (Auto) 50 % (31-73) Lymphocytes (%) (Auto) 36 % (24-48) Monocytes (%) (Auto) 11 % (0-9) Eosinophils (%) (Auto) 2 % (0-3) Basophils (%) (Auto) 1 % (0-3) Neutrophils # (Auto) 3.2 x10^3/uL (1.8-7.7) Lymphocytes # (Auto) 2.3 x10^3/uL (1.0-4.8) Monocytes # (Auto) 0.7 x10^3/uL (0.0-1.1) Eosinophils # (Auto) 0.1 x10^3/uL (0.0-0.7) Basophils # (Auto) 0.0 x10^3/uL (0.0-0.2) Sodium Level 142 mmol/L (136-145) Potassium Level 3.7 mmol/L (3.5-5.1) Chloride Level 106 mmol/L (98-107) Carbon Dioxide Level 29 mmol/L (21-32) Anion Gap 7 (6-14) Blood Urea Nitrogen 12 mg/dL (7-20) Creatinine 0.8 mg/dL (0.6-1.0) Estimated GFR (Cockcroft-Gault) 84.4 BUN/Creatinine Ratio 15 (6-20) Glucose Level 119 mg/dL (70-99) Calcium Level 9.8 mg/dL (8.5-10.1) Total Bilirubin 0.5 mg/dL (0.2-1.0) Aspartate Amino Transf (AST/SGOT) 10 U/L (15-37) Alanine Aminotransferase (ALT/SGPT) 15 U/L (14-59) Alkaline Phosphatase 69 U/L (46-116) Total Protein 6.7 g/dL (6.4-8.2) Albumin 3.0 g/dL (3.4-5.0) Albumin/Globulin Ratio 0.8 (1.0-1.7) Images Images PATIENT: BIB SANTIAGO ACCOUNT: [id number] : 1945 LOCATION: ER AGE: 75 SEX: F EXAM STATUS: REG ER ORD. PHYSICIAN: DONNY COTO DO REASON: pain PROCEDURE: FOOT RIGHT 3V Examination: 3 views of the left testis frontal view the pelvis, 3 views of the bilateral foot HISTORY: History of bilateral flank pain, hip pain COMPARISON: None available. Findings/ impression: Left foot: The alignment of the tarsal bones grossly appears unremarkable. Moderate degenerative changes identified in the tarsometatarsal joints, tarsophalangeal joints, interphalangeal joints grossly appears unremarkable. There is minimal displaced fracture of the second, third, fourth, fifth metatarsals. Mild soft tissue swelling identified about the metatarsal heads. Left hip joint: Left femoral head is within the acetabulum. Mild joint space loss bilaterally likely degenerative changes. Right foot: Moderate joint space loss tarsometatarsal joints, tarsophalangeal segmental tendons grossly appears unremarkable. Osseous demineralization. VTE Prophylaxis Ordered VTE Prophylaxis Devices: No VTE Pharmacological Prophylaxi: Yes Assessment/Plan Assessment/Plan Intractable pain Minimally displaced fractures of the second, third, fourth, fifth metatarsals Normocytic anemia DM2 CAD CHF Physical debility Morbid obesity Mild malnutrition Plan: Consultations has been placed to podiatry Provide pain management PT/OT Resume home medications FEN - Cardiac diet PPX - Lovenox FULL CODE Dispo - inpatient for above Patient names her daughter (Jolanta Santiago) as surrogate decision-maker Justifications for Admission Other Justification KENDRA DYE MD Jan 20, 2021 06:49
[2021-01-20] MEDS ORDERED: ACETAMINOPHEN 325 MG TABLET. PO PRN (07:00)
[2021-01-20] MEDS ORDERED: PROCHLORPERAZINE 5 MG TABLET. PO PRN (07:00)
[2021-01-20] MEDS ORDERED: ZOLPIDEM 5 MG TABLET. PO PRN (07:00)
[2021-01-20] MEDS ORDERED: MAGNESIUM HYDROXIDE 2,400 MG/30 ML ORAL.SUSP. PO PRN (07:00)
[2021-01-20] MEDS ORDERED: ONDANSETRON PF 4 MG/2 ML VIAL. IVP PRN (07:00)
[2021-01-20] MEDS ORDERED: MAG HYDROX/ALUMINUM HYD/SIMETH 30 ML ORAL.SUSP PO PRN (07:00)
[2021-01-20] MEDS ORDERED: hydrALAZINE 20 MG/ML VIAL. IVP PRN (07:00)
[2021-01-20] MEDS ORDERED: HYDROcodone/APAP 5/325MG 1 TAB TABLET PO PRN ×2 (07:00)
[2021-01-20] MEDS ORDERED: CALCIUM CARBONATE 500 MG TAB.CHEW PO PRN (07:00)
[2021-01-20] MEDS: PANTOPRAZOLE 40 MG TABLET.DR. PO SCH (08:46)
[2021-01-20] MEDS: LACTOBACILLUS RHAMNOSUS GG 1 CAPSULE. PO SCH ×2 (08:46→21:01)
[2021-01-20] MEDS: ASPIRIN CHEWABLE 81 MG TABLET. PO SCH (08:46)
[2021-01-20] MEDS: GLIMEPIRIDE 2 MG TABLET. PO SCH ×2 (08:47→18:41)
[2021-01-20] MEDS: PREGABALIN 75 MG CAPSULE PO SCH ×2 (08:48→21:00)
[2021-01-20] MEDS: miSOPROStol 200 MCG TABLET. PO SCH ×2 (09:00→21:00)
[2021-01-20] MEDS: TRIAMCINOLONE ACETONIDE 0.1% TOPICAL CREAM 15GM TUBE. TP SCH ×3 (09:00→21:04)
[2021-01-20] MEDS: LABETALOL HCL 200 MG TABLET PO SCH ×2 (09:00→21:02)
[2021-01-20] MEDS: DICLOFENAC SODIUM 1% TOPICAL GEL 100GM TUBE. TP SCH ×4 (09:00→21:04)
[2021-01-20] MEDS ORDERED: cloNIDine TTS-3 1 PATCH PATCH.TDWK TD SCH (09:00)
[2021-01-20] MEDS: DICLOFENAC SODIUM 25 MG TABLET.DR PO SCH ×2 (09:00→21:00)
[2021-01-20] MEDS: oxyCODONE/APAP 7.5/325 1 TAB TABLET PO PRN ×2 (14:59→21:14)
[2021-01-20] MEDS: oxyCODONE/APAP 5/325 1 TAB TABLET PO PRN (19:31)
[2021-01-20] MEDS: LIDOCAINE (700MG/PATCH) PATCH. TD SCH (21:00)
[2021-01-20] MEDS: AMITRIPTYLINE HCL 10 MG TABLET. PO SCH (21:01)
[2021-01-21 03:38] VITALS: BP 134/58
[2021-01-21] MEDS: oxyCODONE/APAP 7.5/325 1 TAB TABLET PO PRN ×2 (05:40→15:18)
[2021-01-21 07:00] VITALS: BP 129/64
[2021-01-21] MEDS: GLIMEPIRIDE 2 MG TABLET. PO SCH ×2 (08:34→17:38)
[2021-01-21] MEDS: LACTOBACILLUS RHAMNOSUS GG 1 CAPSULE. PO SCH ×2 (08:34→20:53)
[2021-01-21] MEDS: ASPIRIN CHEWABLE 81 MG TABLET. PO SCH (08:34)
[2021-01-21] MEDS: PREGABALIN 75 MG CAPSULE PO SCH ×2 (08:34→20:54)
[2021-01-21] MEDS: PANTOPRAZOLE 40 MG TABLET.DR. PO SCH (08:35)
[2021-01-21] MEDS: DICLOFENAC SODIUM 25 MG TABLET.DR PO SCH ×2 (08:35→20:53)
[2021-01-21] MEDS: DICLOFENAC SODIUM 1% TOPICAL GEL 100GM TUBE. TP SCH ×4 (08:36→21:00)
[2021-01-21] MEDS: TRIAMCINOLONE ACETONIDE 0.1% TOPICAL CREAM 15GM TUBE. TP SCH ×3 (08:37→21:00)
[2021-01-21] MEDS: miSOPROStol 200 MCG TABLET. PO SCH ×2 (08:41→20:53)
[2021-01-21] MEDS: LABETALOL HCL 200 MG TABLET PO SCH ×2 (08:45→20:53)
[2021-01-21] MEDS: oxyCODONE/APAP 5/325 1 TAB TABLET PO PRN ×3 (10:43→20:52)
[2021-01-21 11:00] VITALS: BP 111/51
--- NOTE | 2021-01-21 14:55 | PDOC ---
GENERAL General: Patient examined chart reviewed today is hospital day 3 for this patient with e xtensive underlying multimorbidity to keep her quite debilitated. She had a fall at her [facility] facility [facility] earlier this week and was seen in the emergency department and set up with outpatient services. Unfortunately she has not been able to recover from this fall and is having more difficulty getting around. She has fractured the second third fourth and fifth metatarsals of her left foot which has made her already fragile status more challenging. Dr. Pina podiatry has been consulted from the emergency department hopefully he will be able to see her tomorrow. I have asked for occupational therapy, physical therapy, and social work for their input. She may need a higher level skilled care until she is back to her baseline functioning. Time spent today is 30 minutes with greater than 50% in counseling and coordination of care most of which in discussion with patient and nursing. Problems: (1) Metatarsal fracture (2) Generalized weakness (3) Rheumatoid arthritis (4) Peripheral neuropathy (5) Obesity VITAL SIGNS Vital Signs/I&O: Vital Signs Date Time Temp Pulse Resp B/P (MAP) Pulse Ox O2 Delivery O2 Flow Rate FiO2 01/21/21 11:00 99.1 73 18 111/51 (71) 93 Room Air 99.1 I & O 01/20/21 01/20/21 01/21/21 15:00 23:00 07:00 Intake Total 440 ml 180 ml Output Total 400 ml Balance 440 ml 180 ml -400 ml In general the patient is pleasant at baseline orientation slow affect in no acute distress HEENT exam is unremarkable for acute abnormality Neck is soft and supple no adenopathy or thyromegaly noted Chest is clear to auscultation Heart S1-S2 normal regular rate and rhythm no murmurs or gallops are noted Abdomen soft nontender nondistended no masses organomegaly noted Extremity exam is notable for swelling and tenderness over her left midfoot without skin changes or obvious deformity noted otherwise. Pulses are intact throughout ALLERGIES Allergies: Allergies Coded Allergies Type Severity Reaction Last Updated Verified egg Allergy Intermediate 01/19/21 Yes cephalexin Allergy Unknown UNKNOWN 01/19/21 Yes ciprofloxacin Allergy Unknown UNKNOWN 01/19/21 Yes fluconazole Allergy Unknown UNKNOWN 01/19/21 Yes levofloxacin Allergy Unknown UNKNOWN 01/19/21 Yes tetracycline Allergy Unknown UNKNOWN 01/19/21 Yes MEDS Medications: Current Medications Medications (Trade) Dose Ordered Sig/Janay Start Time Stop Time Status Last Admin Dose Admin Acetaminophen (Tylenol) 650 mg PRN Q6HRS PRN 01/20/21 07:00 Acetaminophen/ Hydrocodone Bitart (Lortab 5/325) 2 tab PRN Q4HRS PRN 01/20/21 07:00 01/20/21 14:52 DC 01/20/21 10:07 Al Hydroxide/Mg Hydroxide (Mylanta Plus Xs) 30 ml PRN Q3HRS PRN 01/20/21 07:00 Amitriptyline HCl (Elavil) 60 mg HS 01/20/21 21:00 01/20/21 21:01 Amlodipine Besylate (Norvasc) 10 mg DAILY 01/20/21 09:00 01/21/21 08:35 Aspirin (Aspirin Chewable) 81 mg DAILYWBKFT 01/20/21 08:00 01/21/21 08:34 Calcium Carbonate/ Glycine (Tums) 500 mg PRN Q3HRS PRN 01/20/21 07:00 Clonidine HCl (Catapres Tts-3) 1 patch WEEKLY 01/20/21 09:00 01/20/21 08:48 Diclofenac Sodium (Voltaren) 75 mg BID 01/20/21 09:00 01/21/21 08:35 Enoxaparin Sodium (Lovenox 60mg Syringe) 60 mg Q12HR 01/20/21 09:00 01/21/21 08:36 Glimepiride (Amaryl) 4 mg BIDWMEALS 01/20/21 08:00 01/21/21 08:34 Hydralazine HCl (Apresoline Inj) 10 mg PRN Q4HRS PRN 01/20/21 07:00 Labetalol HCl (Trandate) 200 mg BID 01/20/21 09:00 01/21/21 08:45 Lactobacillus Rhamnosus (Culturelle) 1 cap BID 01/20/21 09:00 01/21/21 08:34 Lidocaine (Lidoderm) 1 patch HS 01/20/21 21:00 Magnesium Hydroxide (Milk Of Magnesia) 2,400 mg PRN Q12HR PRN 01/20/21 07:00 Misoprostol (Cytotec 200mcg Tab) 200 mcg BID 01/20/21 09:00 01/21/21 08:41 Morphine Sulfate (Morphine Sulfate) 2 mg PRN Q2HR PRN 01/19/21 23:15 01/20/21 23:14 DC 01/20/21 05:17 Ondansetron HCl (Zofran) 4 mg PRN Q6HRS PRN 01/20/21 07:00 Oxycodone/ Acetaminophen (Percocet 5/325) 1 tab PRN Q4HRS PRN 01/20/21 07:00 01/21/21 10:43 Oxycodone/ Acetaminophen (Percocet 7.5/ 325) 1 tab PRN Q6HRS PRN 01/20/21 06:30 01/21/21 05:40 Pantoprazole Sodium (Protonix) 40 mg DAILYAC 01/20/21 07:30 01/21/21 08:35 Polyethylene Glycol (miraLAX PACKET) 17 gm PRN BID PRN 01/20/21 06:30 Pregabalin (Lyrica) 150 mg BID 01/20/21 09:00 01/21/21 08:34 Prochlorperazine Maleate (Compazine) 10 mg PRN Q8HRS PRN 01/20/21 07:00 Triamcinolone Acetonide (Kenalog 0.1%) 1 kristin TID 01/20/21 09:00 01/20/21 21:04 Zolpidem Tartrate (Ambien) 5 mg PRN QHS PRN 01/20/21 07:00 Current Medications Medications (Trade) Dose Ordered Sig/Janay Route PRN Reason Start Time Stop Time Status Last Admin Dose Admin Amitriptyline HCl (Elavil) 60 mg HS PO 01/20/21 21:00 01/20/21 21:01 ASSESSMENT & PLAN A&P Plan as noted above This note was created using [email or web address] and may have omissions and/or errors due to the nature of real-time voice steel pourer. Justifications for Admission General Conditions Other justification for admit: Intractable pain, left foot fracture Other Justification MARNIE LOWERY MD Jan 21, 2021 14:55
[2021-01-21 15:00] VITALS: BP 108/49
[2021-01-21 19:00] VITALS: BP 99/48
[2021-01-21] MEDS: AMITRIPTYLINE HCL 10 MG TABLET. PO SCH (20:53)
[2021-01-21] MEDS: LIDOCAINE (700MG/PATCH) PATCH. TD SCH (20:54)
[2021-01-21 23:00] VITALS: BP 113/79
[2021-01-22 03:00] VITALS: BP 137/67
[2021-01-22 07:15] VITALS: BP 126/68
[2021-01-22] MEDS: PANTOPRAZOLE 40 MG TABLET.DR. PO SCH (07:58)
[2021-01-22 08:12] LABS: BASO # 0.1 x10^3/uL (0.0-0.2); BASO % 1 % (0-3); EOS # 0.2 x10^3/uL (0.0-0.7); EOS % 3 % (0-3); HEMATOCRIT 37.3 % (36.0-47.0); LYMPH # 2.6 x10^3/uL (1.0-4.8); LYMPH % 41 % (24-48); MEAN CORPUSCULAR HEMOGLOBIN 31 pg (25-35); MEAN CORPUSCULAR HGB CONC 32 g/dL (31-37); MEAN CORPUSCULAR VOLUME 97 fL (79-100); MONO # 0.6 x10^3/uL (0.0-1.1); MONO % 11 % (0-9); NEUT # 2.8 x10^3/uL (1.8-7.7); NEUT % 45 % (31-73); PLATELET COUNT 195 x10^3/uL (140-400); RED BLOOD COUNT 3.83 x10^6/uL (3.50-5.40); RED CELL DISTRIBUTION WIDTH 13.5 % (11.5-14.5); WHITE BLOOD COUNT 6.2 x10^3/uL (4.0-11.0)
[2021-01-22 08:35] LABS: ALBUMIN 2.8 g/dL (3.4-5.0); ALBUMIN/GLOBULIN RATIO 0.7 (1.0-1.7); CALCIUM 9.8 mg/dL (8.5-10.1); GFR 65.2; POTASSIUM 4.3 mmol/L (3.5-5.1); TOTAL BILIRUBIN 0.4 mg/dL (0.2-1.0); TOTAL PROTEIN 6.9 g/dL (6.4-8.2)
[2021-01-22] MEDS: ASPIRIN CHEWABLE 81 MG TABLET. PO SCH (09:35)
[2021-01-22] MEDS: DICLOFENAC SODIUM 25 MG TABLET.DR PO SCH ×2 (09:35→21:44)
[2021-01-22] MEDS: miSOPROStol 200 MCG TABLET. PO SCH ×2 (09:36→21:41)
[2021-01-22] MEDS: LABETALOL HCL 200 MG TABLET PO SCH ×2 (09:36→21:41)
[2021-01-22] MEDS: PREGABALIN 75 MG CAPSULE PO SCH ×2 (09:37→21:42)
[2021-01-22] MEDS: GLIMEPIRIDE 2 MG TABLET. PO SCH ×2 (09:37→18:03)
[2021-01-22] MEDS: TRIAMCINOLONE ACETONIDE 0.1% TOPICAL CREAM 15GM TUBE. TP SCH ×3 (09:40→21:39)
[2021-01-22] MEDS: DICLOFENAC SODIUM 1% TOPICAL GEL 100GM TUBE. TP SCH ×5 (09:40→21:39)
[2021-01-22] MEDS: LACTOBACILLUS RHAMNOSUS GG 1 CAPSULE. PO SCH ×2 (09:40→21:41)
[2021-01-22] MEDS: oxyCODONE/APAP 7.5/325 1 TAB TABLET PO PRN ×3 (09:43→21:41)
[2021-01-22 10:54] VITALS: BP 120/63
--- NOTE | 2021-01-22 11:09 | NUR ---
NATASHA following. Discussed with RN, pt from [facility], room air, ada diet. PT/OT ordered. NATASHA received a call from Sunshine at [facility], a request was submitted for SNF from [facility] and auth was received today. Sunshine is trying to determine if we need to resubmit now that pt is in hospital. RN obtaining COVID swab for placement. NATASHA will continue to follow.
--- NOTE | 2021-01-22 13:03 | PDOC ---
[employer] PROGRESS NOTE Date of Service DOS: DATE: 01/22/21 TIME: 13:01 Chief Complaint Chief Complaint Foot pain History of Present Illness History of Present Illness Patient is a 75-year-old female with past medical history CHF, DM2, CAD, asthma, TIA, neuropathy, BRITTA, GERD, who presents to the ED presents from [facility] for evaluation of ongoing left foot pain. She initially presented to the ED on 01/18 after a fall and found to have minimally displaced fractures of the second, third, fourth, fifth metatarsals. She was subsequently discharged to her [facility] facility with pain medications and podiatry referral. She presents again last night for progressively worsening pain, not controlled by her pain medication. She also notes that she been having dif ficulty transferring from her wheelchair to her scooter. Labs on admission showed hemoglobin 11.6, hematocrit 35.0, albumin 3.0. She was treated with morphine in the ED. Will admit patient for further medical management. 01/22 Patient with ongoing pain. Otherwise no complaints. Continue pain medication. Pending podiatry evaluation. Vitals/I&O Vitals/I&O: Vital Signs Date Time Temp Pulse Resp B/P (MAP) Pulse Ox O2 Delivery O2 Flow Rate FiO2 01/22/21 10:54 98.4 74 20 120/63 (82) 94 Room Air 98.4 I & O 01/21/21 01/21/21 01/22/21 15:00 23:00 07:00 Intake Total 1230 ml Output Total 600 ml 750 ml Balance 630 ml -750 ml Physical Exam General: Alert, Oriented X3, Cooperative Heart: Regular rate, Normal S1, Normal S2 Lungs: Clear Abdomen: Normal bowel sounds Extremities: No edema, Normal pulses Skin: No significant lesion Labs Labs: Laboratory Tests Test 01/22/21 07:10 01/22/21 11:05 White Blood Count 6.2 x10^3/uL (4.0-11.0) Red Blood Count 3.83 x10^6/uL (3.50-5.40) Hemoglobin 12.0 g/dL (12.0-15.5) Hematocrit 37.3 % (36.0-47.0) Mean Corpuscular Volume 97 fL (79-100) Mean Corpuscular Hemoglobin 31 pg (25-35) Mean Corpuscular Hemoglobin Concent 32 g/dL (31-37) Red Cell Distribution Width 13.5 % (11.5-14.5) Platelet Count 195 x10^3/uL (140-400) Neutrophils (%) (Auto) 45 % (31-73) Lymphocytes (%) (Auto) 41 % (24-48) Monocytes (%) (Auto) 11 % (0-9) Eosinophils (%) (Auto) 3 % (0-3) Basophils (%) (Auto) 1 % (0-3) Neutrophils # (Auto) 2.8 x10^3/uL (1.8-7.7) Lymphocytes # (Auto) 2.6 x10^3/uL (1.0-4.8) Monocytes # (Auto) 0.6 x10^3/uL (0.0-1.1) Eosinophils # (Auto) 0.2 x10^3/uL (0.0-0.7) Basophils # (Auto) 0.1 x10^3/uL (0.0-0.2) Sodium Level 138 mmol/L (136-145) Potassium Level 4.3 mmol/L (3.5-5.1) Chloride Level 104 mmol/L (98-107) Carbon Dioxide Level 25 mmol/L (21-32) Anion Gap 9 (6-14) Blood Urea Nitrogen 15 mg/dL (7-20) Creatinine 1.0 mg/dL (0.6-1.0) Estimated GFR (Cockcroft-Gault) 65.2 BUN/Creatinine Ratio 15 (6-20) Glucose Level 120 mg/dL (70-99) Calcium Level 9.8 mg/dL (8.5-10.1) Total Bilirubin 0.4 mg/dL (0.2-1.0) Aspartate Amino Transf (AST/SGOT) 14 U/L (15-37) Alanine Aminotransferase (ALT/SGPT) 14 U/L (14-59) Alkaline Phosphatase 71 U/L (46-116) Total Protein 6.9 g/dL (6.4-8.2) Albumin 2.8 g/dL (3.4-5.0) Albumin/Globulin Ratio 0.7 (1.0-1.7) SARS-CoV-2 Antigen (Rapid) Negative (NEGATIVE) Assessment and Plan Assessmemt and Plan Problems Medical Problems: (1) Metatarsal fracture Status: Acute (2) Metatarsal stress fracture of left foot Status: Acute Assessment/Plan Intractable pain Minimally displaced fractures of the second, third, fourth, fifth metatarsals Normocytic anemia DM2 CAD CHF Physical debility Morbid obesity Mild malnutrition Plan: Consultations has been placed to podiatry Provide pain management PT/OT Resume home medications FEN - Cardiac diet PPX - Lovenox FULL CODE Dispo - inpatient for above Patient names her daughter (Jolanta Massey) as surrogate decision-maker Comment Review of Relevant I have reviewed the following items jorge luis (where applicable) has been applied. Justifications for Admission General Conditions Other justification for admit: Intractable pain, left foot fracture Other Justification LALO PATTERSON MD Jan 22, 2021 13:03
[2021-01-22 14:45] VITALS: BP 107/53
--- NOTE | 2021-01-22 18:26 | NUR ---
Wound/Ostomy Care Wound Type/Assessment: Wound care consult for right lateral leg VLU and coccyx PU stage 2 with intertrigo. Pt doesn't know how leg wound started, slough was present upon assessment but was able to be removed once it was cleansed with gauze and wound wash. Coccyx is open and appears to have some intertrigo along with it, calazime cream applied. All wounds were measured. No other wounds noted on head to toe skin assessment. Treatment Recommendations/Plan: Cleanse all wounds and pat dry. Right lateral leg: apply skin prep to periwound, cover with epiona (collagen), contact layer and foam, change every 2-3 days. Coccyx: apply calazime cream daily and prn, ensure that folds are dry after cleaning. Education provided: pt educated on PU prevention/healing, advised to turn q2h Offloading surface/device: purple wedge, pillow to elevate/offload heels Recommended Referrals/Tests: n/a Discharge Recommendations for dressings: same as above
[2021-01-22 19:00] VITALS: BP 125/60
[2021-01-22] MEDS: LIDOCAINE (700MG/PATCH) PATCH. TD SCH (21:40)
[2021-01-22] MEDS: AMITRIPTYLINE HCL 10 MG TABLET. PO SCH (21:42)
[2021-01-22 23:00] VITALS: BP 123/68
[2021-01-23 02:40] VITALS: BP 120/58
[2021-01-23 07:25] VITALS: BP 138/72
[2021-01-23] MEDS: LACTOBACILLUS RHAMNOSUS GG 1 CAPSULE. PO SCH ×2 (08:16→21:33)
[2021-01-23] MEDS: PANTOPRAZOLE 40 MG TABLET.DR. PO SCH (08:16)
[2021-01-23] MEDS: DICLOFENAC SODIUM 25 MG TABLET.DR PO SCH ×2 (08:16→21:00)
[2021-01-23] MEDS: miSOPROStol 200 MCG TABLET. PO SCH ×2 (08:16→21:33)
[2021-01-23] MEDS: PREGABALIN 75 MG CAPSULE PO SCH ×2 (08:17→21:33)
[2021-01-23] MEDS: GLIMEPIRIDE 2 MG TABLET. PO SCH ×2 (08:18→17:26)
[2021-01-23] MEDS: ASPIRIN CHEWABLE 81 MG TABLET. PO SCH (08:18)
[2021-01-23] MEDS: LABETALOL HCL 200 MG TABLET PO SCH ×2 (08:18→21:45)
[2021-01-23] MEDS: oxyCODONE/APAP 7.5/325 1 TAB TABLET PO PRN ×3 (08:23→21:47)
--- NOTE | 2021-01-23 09:15 | NUR ---
Spoke with Dr. Pina this AM in regards to weight bearing status. He stated that he never received consult. He will be in to visit today to give order on weight bearing status.
--- NOTE | 2021-01-23 10:31 | NUR ---
NATASHA following. Discussed with RN, [facility] needs a new auth. NATASHA faxed referral to [facility], awaiting new insurance auth. RN notified. NATASHA will continue to follow. Addendum: 01/23/21 at 1500 by KAROLINA KAUR Insurance approved SNF transfer. Pt can discharge tomorrow after seen by podiatry. RN notified.
[2021-01-23 11:00] VITALS: BP 120/61
--- NOTE | 2021-01-23 13:04 | PDOC ---
[employer] PROGRESS NOTE Date of Service DOS: DATE: 01/23/21 TIME: 13:03 Chief Complaint Chief Complaint Foot pain History of Present Illness History of Present Illness Patient is a 75-year-old female with past medical history CHF, DM2, CAD, asthma, TIA, neuropathy, BRITTA, GERD, who presents to the ED presents from [facility] for evaluation of ongoing left foot pain. She initially presented to the ED on 01/18 after a fall and found to have minimally displaced fractures of the second, third, fourth, fifth metatarsals. She was subsequently discharged to her [facility] facility with pain medications and podiatry referral. She presents again last night for progressively worsening pain, not controlled by her pain medication. She also notes that she been having dif ficulty transferring from her wheelchair to her scooter. Labs on admission showed hemoglobin 11.6, hematocrit 35.0, albumin 3.0. She was treated with morphine in the ED. Will admit patient for further medical management. 01/22 Patient with ongoing pain. Otherwise no complaints. Continue pain medication. Pending podiatry evaluation. 01/23 Patient valuated bedside. Remains nonweightbearing for now. Podiatry to see today or tomorrow. No complaints otherwise other than some ongoing foot pain but manageable pain Vitals/I&O Vitals/I&O: Vital Signs Date Time Temp Pulse Resp B/P (MAP) Pulse Ox O2 Delivery O2 Flow Rate FiO2 01/23/21 11:00 98.3 64 16 120/61 (80) 95 Room Air 98.3 I & O 01/22/21 01/22/21 01/23/21 15:00 23:00 07:00 Intake Total 420 ml 180 ml 300 ml Output Total 700 ml Balance 420 ml 180 ml -400 ml Physical Exam General: Alert, Oriented X3, Cooperative Heart: Regular rate, Normal S1, Normal S2 Lungs: Clear Abdomen: Normal bowel sounds Extremities: No edema, Normal pulses Skin: No significant lesion Assessment and Plan Assessmemt and Plan Problems Medical Problems: (1) Metatarsal fracture Status: Acute (2) Metatarsal stress fracture of left foot Status: Acute Comment Review of Relevant I have reviewed the following items jorge luis (where applicable) has been applied. Justifications for Admission General Conditions Other justification for admit: Intractable pain, left foot fracture Other Justification LALO PATTERSON MD Jan 23, 2021 13:04
[2021-01-23 15:00] VITALS: BP 124/77
[2021-01-23 19:00] VITALS: BP 135/54
[2021-01-23] MEDS: LIDOCAINE (700MG/PATCH) PATCH. TD SCH (21:00)
[2021-01-23] MEDS: AMITRIPTYLINE HCL 10 MG TABLET. PO SCH (21:34)
[2021-01-23 23:00] VITALS: BP 131/62
[2021-01-24 03:00] VITALS: BP 155/80
[2021-01-24] MEDS: PANTOPRAZOLE 40 MG TABLET.DR. PO SCH (05:32)
[2021-01-24] MEDS: oxyCODONE/APAP 7.5/325 1 TAB TABLET PO PRN ×2 (05:39→13:21)
[2021-01-24 07:15] VITALS: BP 118/61
[2021-01-24] MEDS: miSOPROStol 200 MCG TABLET. PO SCH (08:52)
[2021-01-24] MEDS: ASPIRIN CHEWABLE 81 MG TABLET. PO SCH (08:52)
[2021-01-24] MEDS: LACTOBACILLUS RHAMNOSUS GG 1 CAPSULE. PO SCH (08:53)
[2021-01-24] MEDS: LABETALOL HCL 200 MG TABLET PO SCH (08:53)
[2021-01-24] MEDS: DICLOFENAC SODIUM 25 MG TABLET.DR PO SCH (08:53)
[2021-01-24] MEDS: PREGABALIN 75 MG CAPSULE PO SCH (08:54)
[2021-01-24] MEDS: GLIMEPIRIDE 2 MG TABLET. PO SCH (08:54)
[2021-01-24 10:52] VITALS: BP 131/57
--- NOTE | 2021-01-24 11:34 | NUR ---
NATASHA following. Discussed with RN, pt cannot discharge until seen by Podiatry. RN trying to reach Dr. Pina to determine what time he is coming to see pt. NATASHA will continue to follow. Addendum: 01/24/21 at 1525 by KAROLINA KAUR Discharge orders faxed to [facility]. Transportation arranged by R for 1600 picking machine operator helper. RN notified.
--- NOTE | 2021-01-24 12:08 | SNU/HH DC ---
DISCHARGE ORDERS DISCHARGE INFORMATION: DISCHARGE DATE: Jan 24, 2021 FINAL DIAGNOSIS Problems Medical Problems: (1) Metatarsal fracture Status: Acute (2) Metatarsal stress fracture of left foot Status: Acute CONDITION ON DISCHARGE: Stable CODE STATUS: Code Status: Full DETENTION: SNF STAY <30 DAYS: Yes POST DISCHARGE ORDERS: ACTIVITY ORDERS: Activity as tolerated WEIGHT BEARING STATUS: As tolerated DIET AFTER DISCHARGE: ADA WOUND/INCISION CARE: No wound care needed CHECKS AFTER DISCHARGE: CHECKS AFTER DISCHARGE: Check blood press - daily, Check blood sugar, ac/hs FOLLOW-UP: Additional Instructions: left metatarsal neck fracture 2 through 5, minimally displaced with preserved MTPJ alignment 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 She has passed a road test after the mechanical fall while residing at assisted living. In addition, given her age, activity level, surgical intervention is not indicated. -Minimal touchdown heel weightbearing in a surgical shoe during transfer -May take the shoe off at rest -Swelling management with elevation with toes above the nose, icing to the dorsal foot as needed -Compression with Valente or compression stockings per tolerance -Pain management with Tylenol, or NSAIDs per tolerance -Explained to patient that the fractures will take at least 8 weeks to heal, in the meantime, stay off the left forefoot -PT/OT for upper body mobility, hamstring quads exercises, ankle range of motion per tolerance while at the assisted living -Recommend vitamin D 50,000 international units weekly for bone health and fracture healing, per tolerance -Recommend outpatient follow-up with me in the clinic in 3 weeks with surveillance x-ray. Our office will call for scheduling TREATMENT/EQUIPMENT ORDERS: ADAPTIVE EQUIPMENT NEEDED: Front wheeled walker, Walker RESPIRATORY EQUIPMENT NEEDED: Oxygen Physical Therapy For: Evalulation/Treatment Occupational Therapy For: Evaluation/Treatment Speech Language Pathology For: Evaluation/Treatment DISCHARGE MEDICATIONS: Home Meds Active Scripts Hydrocodone/Acetaminophen (Hydrocodone-Acetamin 5-325 mg) 1 Each Tablet, 1 EACH PO Q4-6HRS, #20 TAB Prov:DONNY COTO DO 01/18/21 Oxycodone/Apap 7.5-325 (PERCOCET 7.5-325 MG TABLET ) 1 Each Tablet, 1 TAB PO PRN Q6HRS PRN for PAIN, #12 TAB 0 Refills Prov:RUSS AGUAYO APRN 12/25/19 Doxycycline Hyclate (DOXYCYCLINE HYCLATE) 100 Mg Tablet, 100 MG PO BID for Cellulitis for 10 Days, #20 TAB Prov:LALO SMITH MD 11/08/19 Lidocaine (Lidocaine PATCH ) 1 Each Adh..patch, 1 PATCH TD HS for PAIN for 30 Days, #30 PATCH Prov:BLAYNE MILES MD 03/23/19 Lactobacillus Rhamnosus Gg (CULTURELLE) 1 Each Cap.sprink, 1 CAP PO BID for SUPPLEMENT for 30 Days, #60 CAP Prov:BLAYNE MILES MD 03/23/19 Pantoprazole Sodium (PANTOPRAZOLE SODIUM ) 40 Mg Tablet.dr, 40 MG PO DAILYAC for GERD for 30 Days, #30 TAB.SR Prov:BLAYNE MILES MD 03/23/19 Polyethylene Glycol 3350 (POLYETHYLENE GLYCOL 3350) 17 Gm Powd.pack, 17 GM PO PRN BID PRN for CONSTIPATION 1ST CHOICE for 30 Days, #30 PKT Prov:BLAYNE MILES MD 03/23/19 Amlodipine Besylate (AMLODIPINE BESYLATE) 10 Mg Tablet, 10 MG PO DAILY for BLOOD PRESSURE for 30 Days, #30 TAB Prov:BLAYNE MILES MD 03/23/19 Clonidine (CLONIDINE TTS-3 ) 1 Each Patch.tdwk, 1 PATCH TD WEEKLY for BLOOD PRESSURE for 30 Days, #4 PATCH Prov:BLAYNE MILES MD 03/23/19 Aspirin (ASPIRIN) 81 Mg Tab.chew, 81 MG PO DAILYWBKFT for cva for 30 Days, #30 TAB.CHEW Prov:BLAYNE MLIES MD 02/14/19 Reported Medications Oxycodone/Apap 7.5-325 (PERCOCET 7.5-325 MG TABLET ) 1 Each Tablet, 1 TAB PO PRN Q4HRS PRN for PAIN, TAB 0 Refills 11/02/19 Diclofenac Sodium (VOLTAREN) 100 Gm Gel..gram., 1 GM TP QID for pain for 30 Days, #1 EACH 0 Refills apply to affected area(s) 03/17/19 Triamcinolone Acetonide (TRIAMCINOLONE ACETONIDE 0.1% CREAM) 15 Gm Cream..g., 1 ESTRELLA TP TID for unknown, TUBE 03/17/19 Albuterol Sulfate (Proair Respiclick) 90 Mcg Aer.pow.ba, 2 PUFF IH PRN Q4-6HRS PRN for shortness of breath, #1 INHALER 0 Refills 03/17/19 Pregabalin (LYRICA) 150 Mg Capsule, 1 CAP PO BID for nerve/muscle pain, #60 CAP 5 Refills 03/17/19 Ammonium Lactate/Emu Oil (EMU-LAC HYDRATING CREAM) 120 Ml Cream.ml., 120 ML TP DAILY for unknown, EACH 03/17/19 Diclofenac Sodium/Misoprostol (ARTHROTEC 75 MG-200 MCG TAB) 1 Each Tab.ir.dr, 1 TAB PO BID for for pain, #60 TAB 3 Refills 03/17/19 Amitriptyline Hcl (AMITRIPTYLINE HCL) 10 Mg Tablet, 60 MG PO HS for nerve pain/antidepressent, TAB 03/17/19 Glimepiride (GLIMEPIRIDE) 4 Mg Tablet, 1 TAB PO BID for does not know, #30 TAB 5 Refills 06/13/17 Prochlorperazine Maleate (Compazine) 10 Mg Tablet, 10 MG PO PRN Q8HRS PRN for NAUSEA, TAB 06/13/17 Pravastatin Sodium (PRAVASTATIN SODIUM) 40 Mg Tablet, 1 TAB PO QHS for cholesterol, #90 TAB 1 Refill 06/13/17 Labetalol Hcl (LABETALOL HCL) 200 Mg Tablet, 1 TAB PO BID for htn, #60 TAB 5 Refills 06/13/17 LALO PATTERSON MD Jan 24, 2021 12:08
--- NOTE | 2021-01-24 12:09 | PDOC ---
[employer] PROGRESS NOTE Date of Service DOS: DATE: 01/24/21 TIME: 12:08 Chief Complaint Chief Complaint Foot pain History of Present Illness History of Present Illness Patient is a 75-year-old female with past medical history CHF, DM2, CAD, asthma, TIA, neuropathy, BRITTA, GERD, who presents to the ED presents from [facility] for evaluation of ongoing left foot pain. She initially presented to the ED on 01/18 after a fall and found to have minimally displaced fractures of the second, third, fourth, fifth metatarsals. She was subsequently discharged to her residential facility with pain medications and podiatry referral. She presents again last night for progressively worsening pain, not controlled by her pain medication. She also notes that she been having dif ficulty transferring from her wheelchair to her scooter. Labs on admission showed hemoglobin 11.6, hematocrit 35.0, albumin 3.0. She was treated with morphine in the ED. Will admit patient for further medical management. 01/22 Patient with ongoing pain. Otherwise no complaints. Continue pain medication. Pending podiatry evaluation. 01/23 Patient valuated bedside. Remains nonweightbearing for now. Podiatry to see today or tomorrow. No complaints otherwise other than some ongoing foot pain but manageable pain 01/24 Patient evaluated at bedside. No major clinical changes, as his foot pain is controlled but still present. Possible discharge to SNF later today. Vitals/I&O Vitals/I&O: Vital Signs Date Time Temp Pulse Resp B/P (MAP) Pulse Ox O2 Delivery O2 Flow Rate FiO2 01/24/21 10:52 98.4 68 18 131/57 (81) 95 Room Air 98.4 I & O 01/23/21 01/23/21 01/24/21 15:00 23:00 07:00 Output Total 1100 ml 900 ml Balance -1100 ml -900 ml Physical Exam General: Alert, Oriented X3, Cooperative Heart: Regular rate, Normal S1, Normal S2 Lungs: Clear Abdomen: Normal bowel sounds Extremities: No edema, Normal pulses Skin: No significant lesion Assessment and Plan Assessmemt and Plan Problems Medical Problems: (1) Metatarsal fracture Status: Acute (2) Metatarsal stress fracture of left foot Status: Acute ntractable pain Minimally displaced fractures of the second, third, fourth, fifth metatarsals Normocytic anemia DM2 CAD CHF Physical debility Morbid obesity Mild malnutrition Plan: Consultations has been placed to podiatry Provide pain management PT/OT Resume home medications FEN - Cardiac diet PPX - Lovenox FULL CODE Dispo - inpatient for above Patient names her daughter (Jolanta Massey) as surrogate decision-maker Comment Review of Relevant I have reviewed the following items jorge luis (where applicable) has been applied. Justifications for Admission General Conditions Other justification for admit: Intractable pain, left foot fracture Other Justification LALO PATTERSON MD Jan 24, 2021 12:09
--- NOTE | 2021-01-24 14:11 | PDOC2 ---
CONSULT Date of Consult Date of Consult DATE: 01/24/21 TIME: 14:03 Reason for Consult Reason for Consult: Left foot metatarsal fracture Source Source: Patient History of Present Illness Reason for Visit: Patient is an assisted-living resident with sustained a mechanical fall last week while transferring from the wheelchair to a scooter and landed on the left foot. Subsequent x-ray remarked metatarsal neck fracture 2 through 5, minimally displaced without any subluxation across the MTP. Patient was then admitted for pain management. Today, patient relates upwards to 10 out of 10 aching throbbing pain to the left forefoot. At rest, the pain is negligible. Patient further denies any ankle pain, calf pain or symptoms of DVT. Patient further denies any constant numbness tingling sensation to the left foot. At baseline, patient is wheelchair-bound. She denies any history of delayed union or nonunion of fractures. Past Medical History Cardiovascular: HTN Pulmonary: Asthma CENTRAL NERVOUS SYSTEM: Periperal neuropathy, TIA, Other GI: GERD Hepatobiliary: Cholelithiasis Musculoskeletal: low back pain, Osteoarthritis Rheumatologic: Rheumatoid arthritis Infectious disease: No pertinent hx Renal/: Chronic renal insuff, UTI Endocrine: Diabetes Past Surgical History Past Surgical History: Cholecystectomy, Hysterectomy Family History Family History: Heart Disease Social History Quit ALCOHOL: none Drugs: None Lives: Alone Current Problem List Problem List Problems Medical Problems: (1) Metatarsal fracture Status: Acute (2) Metatarsal stress fracture of left foot Status: Acute Current Medications Current Medications Current Medications Morphine Sulfate (Morphine Sulfate) 2 mg 1X ONCE IM Last administered on 01/19/21at 19:51; Start 01/19/21 at 19:15; Stop 01/19/21 at 19:16; Status DC Ondansetron HCl (Zofran) 4 mg PRN Q8HRS PRN IVP NAUSEA/VOMITING; Start 01/19/21 at 23:15; Stop 01/20/21 at 06:59; Status DC Morphine Sulfate (Morphine Sulfate) 2 mg PRN Q2HR PRN IVP PAIN Last administered on 01/20/21at 05:17; Start 01/19/21 at 23:15; Stop 01/20/21 at 23:14; Status DC Acetaminophen (Tylenol) 650 mg PRN Q4HRS PRN PO FEVER > 100.3'F; Start 01/19/21 at 23:15; Stop 01/20/21 at 23:14; Status DC Amitriptyline HCl (Elavil) 60 mg HS PO Last administered on 01/23/21at 21:34; Start 01/20/21 at 21:00 Amlodipine Besylate (Norvasc) 10 mg DAILY PO Last administered on 01/24/21at 08:54; Start 01/20/21 at 09:00 Aspirin (Aspirin Chewable) 81 mg DAILYWBKFT PO Last administered on 01/24/21at 08:52; Start 01/20/21 at 08:00 Clonidine HCl (Catapres Tts-3) 1 patch WEEKLY TD Last administered on 01/20/21at 08:48; Start 01/20/21 at 09:00 Diclofenac Sodium (Voltaren) 1 becca QID TP Last administered on 01/22/21at 09:40; Start 01/20/21 at 09:00; Stop 01/23/21 at 10:35; Status DC Labetalol HCl (Trandate) 200 mg BID PO Last administered on 01/24/21at 08:53; Start 01/20/21 at 09:00 Lactobacillus Rhamnosus (Culturelle) 1 cap BID PO Last administered on 01/24at 08:53; Start 01/20/21 at 09:00 Lidocaine (Lidoderm) 1 patch HS TD Last administered on 01/22/21at 21:40; Start 01/20/21 at 21:00 Oxycodone/ Acetaminophen (Percocet 7.5/ 325) 1 tab PRN Q6HRS PRN PO PAIN, MOD- SEVERE Last administered on 01/24/21at 13:21; Start 01/20/21 at 06:30 Pantoprazole Sodium (Protonix) 40 mg DAILYAC PO Last administered on 01/24/21at 05:32; Start 01/20/21 at 07:30 Polyethylene Glycol (miraLAX PACKET) 17 gm PRN BID PRN PO CONSTIPATION 1ST CHOICE; Start 01/20/21 at 06:30 Triamcinolone Acetonide (Kenalog 0.1%) 1 becca TID TP Last administered on 01/22/21at 21:39; Start 01/20/21 at 09:00; Stop 01/23/21 at 10:35; Status DC Diclofenac Sodium (Voltaren) 75 mg BID PO Last administered on 01/24/21at 08:53; Start 01/20/21 at 09:00 Glimepiride (Amaryl) 4 mg BIDWMEALS PO Last administered on 01/24/21at 08:54; Start 01/20/21 at 08:00 Pregabalin (Lyrica) 150 mg BID PO Last administered on 01/24/21at 08:54; Start 01/20/21 at 09:00 Prochlorperazine Maleate (Compazine) 10 mg PRN Q8HRS PRN PO NAUSEA/VOMITING; Start 01/20/21 at 07:00 Hydralazine HCl (Apresoline Inj) 10 mg PRN Q4HRS PRN IVP ELEVATED BP, SEE COMMENTS; Start 01/20/21 at 07:00 Ondansetron HCl (Zofran) 4 mg PRN Q6HRS PRN IVP NAUSEA/VOMITING; Start 01/20/21 at 07:00 Al Hydroxide/Mg Hydroxide (Mylanta Plus Xs) 30 ml PRN Q3HRS PRN PO HEARTBURN / GAS; Start 01/20/21 at 07:00 Calcium Carbonate/ Glycine (Tums) 500 mg PRN Q3HRS PRN PO UPSET STOMACH; Start 01/20/21 at 07:00 Zolpidem Tartrate (Ambien) 5 mg PRN QHS PRN PO INSOMNIA, MAY REPEAT IN 1HR; Start 01/20/21 at 07:00 Acetaminophen/ Hydrocodone Bitart (Lortab 5/325) 1 tab PRN Q4HRS PRN PO MILD PAIN 1-3; Start 01/20/21 at 07:00; Stop 01/20/21 at 14:52; Status DC Acetaminophen/ Hydrocodone Bitart (Lortab 5/325) 2 tab PRN Q4HRS PRN PO MODER ATE PAIN, SEVERE PAIN Last administered on 01/20/21at 10:07; Start 01/20/21 at 07:00; Stop 01/20/21 at 14:52; Status DC Oxycodone/ Acetaminophen (Percocet 5/325) 1 tab PRN Q4HRS PRN PO MILD PAIN, 2ND CHOICE Last administered on 01/21/21at 20:52; Start 01/20/21 at 07:00 Acetaminophen (Tylenol) 650 mg PRN Q6HRS PRN PO Headaches, Temp > 101.5F; Start 01/20/21 at 07:00 Magnesium Hydroxide (Milk Of Magnesia) 2,400 mg PRN Q12HR PRN PO CONSTIPATION, 2ND CHOICE; Start 01/20/21 at 07:00 Enoxaparin Sodium (Lovenox 60mg Syringe) 60 mg Q12HR SQ Last administered on 01/24/21at 08:55; Start 01/20/21 at 09:00 Misoprostol (Cytotec 200mcg Tab) 200 mcg BID PO Last administered on 01/24/21at 08:52; Start 01/20/21 at 09:00 Active Scripts Active Hydrocodone-Acetamin 5-325 mg (Hydrocodone/Acetaminophen) 1 Each Tablet 1 Each PO Q4-6HRS Percocet 7.5-325 Mg Tablet (Oxycodone/Acetaminophen) 1 Each Tablet 1 Tab PO PRN Q6HRS PRN Doxycycline Hyclate 100 Mg Tablet 100 Mg PO BID 10 Days Lidocaine PATCH (Lidocaine) 1 Each Adh..patch 1 Patch TD HS 30 Days Culturelle (Lactobacillus Rhamnosus Gg) 1 Each Cap.sprink 1 Cap PO BID 30 Days Pantoprazole Sodium (Pantoprazole Sodium) 40 Mg Tablet.dr 40 Mg PO DAILYAC 30 Days Polyethylene Glycol 3350 17 Gm Powd.pack 17 Gm PO PRN BID PRN 30 Days Amlodipine Besylate 10 Mg Tablet 10 Mg PO DAILY 30 Days Clonidine Tts-3 (Clonidine) 1 Each Patch.tdwk 1 Patch TD WEEKLY 30 Days Aspirin 81 Mg Tab.chew 81 Mg PO DAILYWBKFT 30 Days Reported Percocet 7.5-325 Mg Tablet (Oxycodone/Acetaminophen) 1 Each Tablet 1 Tab PO PRN Q4HRS PRN Voltaren (Diclofenac Sodium) 100 Gm Gel..gram. 1 Gm TP QID 30 Days apply to affected area(s) Triamcinolone Acetonide 0.1% Cream (Triamcinolone Acetonide) 15 Gm Cream..g. 1 Becca TP TID Proair Respiclick (Albuterol Sulfate) 90 Mcg Aer.pow.ba 2 Puff IH PRN Q4-6HRS PRN Lyrica (Pregabalin) 150 Mg Capsule 1 Cap PO BID Emu-Lac Hydrating Cream (Ammonium Lactate/Emu Oil) 120 Ml Cream.ml. 120 Ml TP DAILY Arthrotec 75 Mg-200 Mcg Tab (Diclofenac Sodium/Misoprostol) 1 Each Tab.ir. 1 Tab PO BID Amitriptyline Hcl 10 Mg Tablet 60 Mg PO HS Glimepiride 4 Mg Tablet 1 Tab PO BID Compazine (Prochlorperazine Maleate) 10 Mg Tablet 10 Mg PO PRN Q8HRS PRN Pravastatin Sodium 40 Mg Tablet 1 Tab PO QHS Labetalol Hcl 200 Mg Tablet 1 Tab PO BID Allergies Allergies: Coded Allergies: cephalexin (Verified Allergy, Intermediate, UNKNOWN, 01/23/21) ciprofloxacin (Verified Allergy, Intermediate, UNKNOWN, 01/23/21) egg (Verified Allergy, Intermediate, 01/19/21) fluconazole (Verified Allergy, Intermediate, UNKNOWN, 01/23/21) levofloxacin (Verified Allergy, Intermediate, UNKNOWN, 01/23/21) tetracycline (Verified Allergy, Intermediate, UNKNOWN, 01/23/21) ROS Review of System CONSTITUTIONAL: No fever. No chills. No dizziness. No weakness. CARDIOVASCULAR: No chest pain. No palpitations. No lower extremity edema. RESPIRATORY: No shortness of breath, cough, pain with respiration. No hemoptysis. No dyspnea. GASTROINTESTINAL: Normal appetite. No nausea, vomiting, diarrhea. GENITOURINARY: No frequency, urgency, nocturia. No hematuria or dysuria. MUSCULOSKELETAL: Refer to HPI INTEGUMENTARY: No abrasions, lymphangitis. NEUROLOGIC: No numbness or tingling of the extremities. No weakness. PSYCHIATRIC: No confusion. ENDOCRINE: No fatigue. No weakness. HEMATOLOGICAL: No bleeding. No petechiae. No bruising. ALLERGIES: No asthma. No urticaria Physical Exam Physical Exam General: AO x 3 without acute distress. Lower extremity exam: Left ankle/foot VASC: - Pedal pulse (DP/PT) 1/4 - Mild nonpitting edema to dorsal forefoot -No ecchymosis NEURO: - Gross sensation intact via light touch - [-] Tinel sign along the DCN or sural n. DERM: - Skin envelope is intact without any tenting, fx blisters, or open lesions. MUSC: - [+] TTP over the 2 through 5 metatarsal necks - Rectus digital alignment -MTPJ range of motion was deferred due to apprehension and pain - [-] TTP along the PB, PL, lateral plantar fascial band - [-] TTP along the cuboid, calcaneus, navicular - [-] inversion/eversion/ piano brown test across the lisfranc joint - muscle strength across the ankle joint 5/5 except for plantar flexion against resistance, 3 out of 5 due to apprehension and pain -Moderate to severe flatfoot deformity with forefoot abductus Vitals VITALS Vital Signs Date Time Temp Pulse Resp B/P (MAP) Pulse Ox O2 Delivery O2 Flow Rate FiO2 01/24/21 10:52 98.4 68 18 131/57 (81) 95 Room Air 98.4 Assessment/Plan Assessment/Plan left metatarsal neck fracture 2 through 5, minimally displaced with preserved MTPJ alignment 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 She has passed a road test after the mechanical fall while residing at assisted living. In addition, given her age, activity level, surgical intervention is not indicated. -Minimal touchdown heel weightbearing in a surgical shoe during transfer -May take the shoe off at rest -Swelling management with elevation with toes above the nose, icing to the dorsal foot as needed -Compression with Valente or compression stockings per tolerance -Pain management with Tylenol, or NSAIDs per tolerance -Explained to patient that the fractures will take at least 8 weeks to heal, in the meantime, stay off the left forefoot -PT/OT for upper body mobility, hamstring quads exercises, ankle range of motion per tolerance while at the assisted living -Recommend vitamin D 50,000 international units weekly for bone health and fracture healing, per tolerance -Recommend outpatient follow-up with me in the clinic in 3 weeks with surveillance x-ray. Our office will call for scheduling SUSANNA ADAMS DPM Jan 24, 2021 14:11
[2021-01-24] MEDS ORDERED: DICL1TAB5 PO (14:50)
[2021-01-24] MEDS ORDERED: OXYC1TAB19 PO (14:50)
--- NOTE | 2021-01-24 14:54 | PDOC3 ---
[facility]-Discharge Summary Date of Admission: Date of Admission: Jan 20, 2021 Date of Discharge: Date of Discharge: Jan 24, 2021 Admission Diagnosis: Problems: (1) Metatarsal stress fracture of left foot Consults: Consults: Podiatry Hospital Course: Hospital Course: Patient is a 75-year-old female with past medical history CHF, DM2, CAD, asthma, TIA, neuropathy, BRITTA, GERD, who presents to the ED presents from [facility] for evaluation of ongoing left foot pain. She initially presented to the ED on 01/18 after a fall and found to have minimally displaced fractures of the second, third, fourth, fifth metatarsals. She was subsequently discharged to her [facility] facility with pain medications and podiatry referral. She presents again last night for progressively worsening pain, not controlled by her pain medication. She also notes that she been having difficulty transferring from her wheelchair to her scooter. Labs on admission showed hemoglobin 11.6, hematocrit 35.0, albumin 3.0. She was treated with morphine in the ED. Will admit patient for further medical management. 01/22 Patient with ongoing pain. Otherwise no complaints. Continue pain medication. Pending podiatry evaluation. 01/23 Patient valuated bedside. Remains nonweightbearing for now. Podiatry to see today or tomorrow. No complaints otherwise other than some ongoing foot pain but manageable pain 01/24 Patient evaluated at bedside. No major clinical changes, as his foot pain is controlled but still present. Possible discharge to SNF later today. See d/c instruction for podiatry recommendations. Disposition: Disposition/Orders: D/C to Another Facility Activity: Activity: Resume previous activity Diet: Diet: Regular Medications: Home Meds Active Scripts Diclofenac Sodium/Misoprostol (ARTHROTEC 75 MG-200 MCG TAB) 1 Each Tab.ir.dr, 1 TAB PO BID for for pain, #60 TAB 3 Refills Prov:LALO PATTERSON MD 01/24/21 Lidocaine (Lidocaine PATCH ) 1 Each Adh..patch, 1 PATCH TD HS for PAIN for 30 Days, #30 PATCH Prov:BLAYNE MILES MD 03/23/19 Lactobacillus Rhamnosus Gg (CULTURELLE) 1 Each Cap.sprink, 1 CAP PO BID for SUPPLEMENT for 30 Days, #60 CAP Prov:BLAYNE MILES MD 03/23/19 Pantoprazole Sodium (PANTOPRAZOLE SODIUM ) 40 Mg Tablet.dr, 40 MG PO DAILYAC for GERD for 30 Days, #30 TAB.SR Prov:BLAYNE MILES MD 03/23/19 Polyethylene Glycol 3350 (POLYETHYLENE GLYCOL 3350) 17 Gm Powd.pack, 17 GM PO PRN BID PRN for CONSTIPATION 1ST CHOICE for 30 Days, #30 PKT Prov:BLAYNE MILES MD 03/23/19 Amlodipine Besylate (AMLODIPINE BESYLATE) 10 Mg Tablet, 10 MG PO DAILY for BLOOD PRESSURE for 30 Days, #30 TAB Prov:BLAYNE MILES MD 03/23/19 Clonidine (CLONIDINE TTS-3 ) 1 Each Patch.tdwk, 1 PATCH TD WEEKLY for BLOOD PRESSURE for 30 Days, #4 PATCH Prov:BLAYNE MILES MD 03/23/19 Aspirin (ASPIRIN) 81 Mg Tab.chew, 81 MG PO DAILYWBKFT for cva for 30 Days, #30 TAB.CHEW Prov:BLAYNE MILES MD 02/14/19 Reported Medications Oxycodone/Apap 7.5-325 (PERCOCET 7.5-325 MG TABLET ) 1 Each Tablet, 1 TAB PO PRN Q4HRS PRN for PAIN, TAB 0 Refills 11/02/19 Diclofenac Sodium (VOLTAREN) 100 Gm Gel..gram., 1 GM TP QID for pain for 30 Days, #1 EACH 0 Refills apply to affected area(s) 03/17/19 Triamcinolone Acetonide (TRIAMCINOLONE ACETONIDE 0.1% CREAM) 15 Gm Cream..g., 1 ESTRELLA TP TID for unknown, TUBE 03/17/19 Albuterol Sulfate (Proair Respiclick) 90 Mcg Aer.pow.ba, 2 PUFF IH PRN Q4-6HRS PRN for shortness of breath, #1 INHALER 0 Refills 03/17/19 Pregabalin (LYRICA) 150 Mg Capsule, 1 CAP PO BID for nerve/muscle pain, #60 CAP 5 Refills 03/17/19 Ammonium Lactate/Emu Oil (EMU-LAC HYDRATING CREAM) 120 Ml Cream.ml., 120 ML TP DAILY for unknown, EACH 03/17/19 Amitriptyline Hcl (AMITRIPTYLINE HCL) 10 Mg Tablet, 60 MG PO HS for nerve pain/antidepressent, TAB 03/17/19 Glimepiride (GLIMEPIRIDE) 4 Mg Tablet, 1 TAB PO BID for does not know, #30 TAB 5 Refills 06/13/17 Prochlorperazine Maleate (Compazine) 10 Mg Tablet, 10 MG PO PRN Q8HRS PRN for NAUSEA, TAB 06/13/17 Pravastatin Sodium (PRAVASTATIN SODIUM) 40 Mg Tablet, 1 TAB PO QHS for cholesterol, #90 TAB 1 Refill 06/13/17 Labetalol Hcl (LABETALOL HCL) 200 Mg Tablet, 1 TAB PO BID for htn, #60 TAB 5 Refills 06/13/17 Discontinued Scripts Hydrocodone/Acetaminophen (Hydrocodone-Acetamin 5-325 mg) 1 Each Tablet, 1 EACH PO Q4-6HRS, #20 TAB Prov:DONNY COTO I DO 01/18/21 Oxycodone/Apap 7.5-325 (PERCOCET 7.5-325 MG TABLET ) 1 Each Tablet, 1 TAB PO PRN Q6HRS PRN for PAIN, #12 TAB 0 Refills Prov:RUSS AGUAYO APRN 12/25/19 Doxycycline Hyclate (DOXYCYCLINE HYCLATE) 100 Mg Tablet, 100 MG PO BID for Cellulitis for 10 Days, #20 TAB Prov:LALO SMITH MD 11/08/19 Scheduled Amitriptyline Hcl (Amitriptyline Hcl), 60 MG PO HS, (Reported) Amlodipine Besylate (Amlodipine Besylate), 10 MG PO DAILY Ammonium Lactate/Emu Oil (Emu-Lac Hydrating Cream), 120 ML TP DAILY, (Reported) Aspirin (Aspirin), 81 MG PO DAILYWBKFT Clonidine (Clonidine Tts-3 ), 1 PATCH TD WEEKLY Diclofenac Sodium (Voltaren), 1 GM TP QID, (Reported) Diclofenac Sodium/Misoprostol (Arthrotec 75 Mg-200 Mcg Tab), 1 TAB PO BID Glimepiride (Glimepiride), 1 TAB PO BID, (Reported) Labetalol Hcl (Labetalol Hcl), 1 TAB PO BID, (Reported) Lactobacillus Rhamnosus Gg (Culturelle), 1 CAP PO BID Lidocaine (Lidocaine PATCH ), 1 PATCH TD HS Pantoprazole Sodium (Pantoprazole Sodium ), 40 MG PO DAILYAC Pravastatin Sodium (Pravastatin Sodium), 1 TAB PO QHS, (Reported) Pregabalin (Lyrica), 1 CAP PO BID, (Reported) Triamcinolone Acetonide (Triamcinolone Acetonide 0.1% Cream), 1 ESTRELLA TP TID, (Reported) Scheduled PRN Albuterol Sulfate (Proair Respiclick), 2 PUFF IH PRN Q4-6HRS PRN for shortness of breath, (Reported) Oxycodone/Apap 7.5-325 (Percocet 7.5-325 Mg Tablet ), 1 TAB PO PRN Q4HRS PRN for PAIN, (Reported) Polyethylene Glycol 3350 (Polyethylene Glycol 3350), 17 GM PO PRN BID PRN for CONSTIPATION 1ST CHOICE Prochlorperazine Maleate (Compazine), 10 MG PO PRN Q8HRS PRN for NAUSEA, (Reported) Discontinued Medications Doxycycline Hyclate (Doxycycline Hyclate), 100 MG PO BID Hydrocodone/Acetaminophen (Hydrocodone-Acetamin 5-325 mg), 1 EACH PO Q4-6HRS Oxycodone/Apap 7.5-325 (Percocet 7.5-325 Mg Tablet ), 1 TAB PO PRN Q6HRS PRN for PAIN Discontinued Reason: Prescription changed Justicifation of Admission Dx: Justifications for Admission: Justification of Admission Dx: N/A LALO PATTERSON MD Jan 24, 2021 14:54
[2021-01-24 14:59] VITALS: BP 142/73
== END 2021-01-24 16:24 | DRG 563 ==
LOC: ER 18:49 → 4 NORTH 22:45 → OBSVTOIN 01-20 06:54
PROVIDERS: ADMIT Family Medicine; ATTEND Family Medicine
DX: S92.322A Displaced fracture of second metatarsal bone, left foot, initial encounter for closed fracture (principal); E44.1 Mild protein-calorie malnutrition; I13.0 Hypertensive heart and chronic kidney disease with heart failure and stage 1 through stage 4 chronic kidney disease, or unspecified chronic kidney disease; Z68.42 Body mass index [BMI] 45.0-49.9, adult; D64.9 Anemia, unspecified; E11.22 Type 2 diabetes mellitus with diabetic chronic kidney disease; E11.40 Type 2 diabetes mellitus with diabetic neuropathy, unspecified; E66.01 Morbid (severe) obesity due to excess calories; I25.10 Atherosclerotic heart disease of native coronary artery without angina pectoris; I50.9 Heart failure, unspecified; J45.909 Unspecified asthma, uncomplicated; M06.9 Rheumatoid arthritis, unspecified; M21.40 Flat foot [pes planus] (acquired), unspecified foot; N18.9 Chronic kidney disease, unspecified; W18.30XA Fall on same level, unspecified, initial encounter; Z86.73 Personal history of transient ischemic attack (TIA), and cerebral infarction without residual deficits; Z87.891 Personal history of nicotine dependence; Z90.710 Acquired absence of both cervix and uterus; Z99.3 Dependence on wheelchair; F32.9 Major depressive disorder, single episode, unspecified; K21.9 Gastro-esophageal reflux disease without esophagitis; M19.90 Unspecified osteoarthritis, unspecified site; Z90.49 Acquired absence of other specified parts of digestive tract; Z88.8 Allergy status to other drugs, medicaments and biological substances; Z91.012 Allergy to eggs; S92.332A Displaced fracture of third metatarsal bone, left foot, initial encounter for closed fracture; S92.342A Displaced fracture of fourth metatarsal bone, left foot, initial encounter for closed fracture; S92.352A Displaced fracture of fifth metatarsal bone, left foot, initial encounter for closed fracture; W18.39XA Other fall on same level, initial encounter; Z91.81 History of falling; Y93.89 Activity, other specified; Y92.89 Other specified places as the place of occurrence of the external cause; Y99.8 Other external cause status
CPT/HCPCS: 36415; 80053; 85025; 87426; 96372; G0378; G0379; J1650; J2270; U0003; U0005; 97110-GP; 97530-GP; 97535-GO; 99285-25